=== PATIENT | male | born 1960 | race Caucasian/White ===

== ENCOUNTER → 2019-10-17 06:54 | Outpatient (CLI) | payer OTHER, SELFPAY ==
--- NOTE | 2019-10-17 | CA_ITS ---
APPROVED REPORT Exam: Pharmacologic Technologist: Oriana Torre Ht: 5 ft 9 in Wt: 178 lbs BSA: 1.97 m2 HR: 51 bpm BP: 116/54 mmHg Indications: CAD Medical History Medications: Lisinopril,,,,, Gabapentin,,,,, Atorvastatin,,,,, INSULIN,,,,, CloPIdogrel,,,,, BisOPROLOL,,,,, OmeGA3,,,,, Sitagliptin,,,,, EMpagliflozin,,,,, Stress Test Details Test: LEXISCAN HR Resting HR: 51 bpm Max Heart Rate (APMHR): 159 bpm Max HR Achieved: 90 bpm Target HR (85% APMHR): 135 bpm % of APMHR: 56 Recovery HR: 66 bpm BP Resting BP: 116.0/54.0 mmHg Max BP: 141.0/61.0 mmHg Recovery BP: 128.0/56.0 mmHg ECG Clinical Exercise duration: 04:00 min Highest Stage Achieved: Stress ECG Conclusion Resting ECG: Sinus bradycardia with PVC Lexiscan portion completed. Symptoms: Denied any complaints during peak infusion. No chest pain, shortness of breath or nausea/vomiting. Arrhythmias/Ectopy: Occasional PVC ST-T Changes: less than 1.[address] depression. Conclusion: Images to follow. Test Summary REST . . . . . . . Resting REST 02:56 . . 51 . 116/ 54 . . Stage 1 01:00 . . 74 . . . . Stage 2 01:00 . . 79 . 141/ 61 . . Stage 3 01:00 . . 74 . 131/ 61 . . Stage 4 01:00 . . 73 . 129/ 61 . Stop exercise at 04:00 RECOVERY 01:00 . . 71 . 125/ 60 . . RECOVERY 02:00 . . 67 . 118/ 59 . . RECOVERY 03:00 . . 71 . 118/ 59 . . RECOVERY 04:00 . . 64 . 121/ 62 . . RECOVERY 04:20 . . 65 . 128/ 56 . . Electronically signed by : Payam Tsang, 10/17/2019 20:19:15
--- NOTE | 2019-10-17 06:57 | NM_ITS ---
APPROVED REPORT Exam: Nuclear Stress Test Indication: CAD, HTN, DM, High cholesterol, Tobacco use Patient Location: Outpatient Stress Tech: Oriana Torre [place] Tech:Delmi Gross, ARRT, RT (R)(N) Ht: 5 ft 9 in Wt: 178 lbs HR: 51 bpm BP: 116/54 mmHg BSA: 1.97 m2 BMI: 26.2 History: CAD, HTN, DM, High cholesterol, Tobacco use Procedure: Patient received a 0.4 mg of intravenous Lexiscan, resting heart rate 51 bpm, resting blood pressure 116/54 mmHg, with Lexiscan maximum heart rate achived was 80 bpm which is Less than 85 % of the maximum predicted heart rate and blood pressure was 141/61 mmHg. With Lexiscan, patient denied any complaint of chest pain. Electrocardiogram Resting electrocardiogram showed sinus bradycardia, with Lexiscan there is less than 1.[address] segment depression noted from the baseline EKG. The EKG portion of the Lexiscan Myoview is nondiagnostic. Cardiac Stress and Resting SPECT Images: Cardiac Stress and Resting SPECT images were obtained using technetium 99m Myoview 31.4 mCi stress and 10.79 mCi at rest. Gated SPECT with analysis of segmental wall motion and calculation of the ejection fraction also done. Cardiac stress and resting SPECT images show decreased tracer activity in the inferoseptal wall which improves on the resting images suggestive of reversible ischemia, computer derived ejection fraction is over 65% with no regional wall motion abnormality, right ventricle is normal size and contractility. Conclusion: 1. The EKG portion of the Lexiscan Myoview is nondiagnostic. 2. Scintigraphic evidence of mild reversible ischemia involving the inferior septal wall. Computer derived ejection fraction over 65% with no regional wall motion abnormality, right ventricle is normal size and contractility. 3. Abnormal Lexiscan Myoview study. Electronically signed by : Payam Tsang, 10/17/2019 20:22:13
--- NOTE | 2019-10-17 07:17 | HMH.ITSHM ---
Current Home Medications as stated by this patient Oleksandr Fernandez or personnel representative. []SITAGLIPTIN OMEGA 3 LISINOPRIL INSULIN GABAPENTIN EMPAGLIFLOZIN CLOPIDOGREL BISOPROLOL ATORVASTATIN ASA
== END ==
PROVIDERS: PCP Family Medicine; Visit Provider Internal Medicine
DX: I25.10 Atherosclerotic heart disease of native coronary artery without angina pectoris (principal); E78.5 Hyperlipidemia, unspecified; I11.9 Hypertensive heart disease without heart failure; I73.9 Peripheral vascular disease, unspecified; Z72.0 Tobacco use
CPT/HCPCS: 78452; 93017; A9502; J2785

== ENCOUNTER → 2020-01-09 08:31 | Outpatient (CLI) | payer OTHER, SELFPAY ==
--- NOTE | 2020-01-09 08:33 | CA_ITS ---
APPROVED REPORT EXAM: Comprehensive 2D, Doppler, and color-flow Echocardiogram Front End Java Developer: Aimee Patel RVT Ht: 5 ft 9 in Wt: 176lbs BSA: 1.96 BP: 120/52 mmHg Indications: Diabetes, CAD, Hyperlipidemia, Hypertension,Smoker,PAD 2D Dimensions LVOT 2.24 cm (M/F) 1.5-2.5 M-Mode Dimensions RVDd 2.27 cm (0.9-2.6) LVDd 5.32 cm (3.5-5.7) LVDs 3.35 cm (3.5-5.7) IVSd 0.61 cm (0.6-1.1) PWd 1.03 cm (0.6-1.1) EF (Teich) 66.40% FS 37.00% EDV (Teich) 136.50 mL ESV (Teich) 45.80 mL LV Diastology E/A Ratio 1.27 Mitral Valve MV A Velocity 66.00 (40-130 cm/s) Left Ventricle Left atrium is mildly enlarged, left ventricle is normal size, mild concentric left ventricular hypertrophy, visually estimated ejection fraction 55% with no regional wall motion abnormality. Grade 1 diastolic dysfunction seen without tissue Doppler evidence of raise left atrial pressure. Right Ventricle Right atrium and right ventricular mildly enlarged with normal contractility. Aortic Valve Aortic valve is minimally thickened and fibrosed, there is no aortic stenosis or aortic insufficiency. Mitral Valve Mitral valve is grossly normal, there is mild mitral regurgitation. Tricuspid Valve Tricuspid valve is grossly normal, there is mild tricuspid regurgitation. Pulmonic Valve Pulmonic valve is poorly visualized. Great Vessels Aortic root is normal size. Pericardium No significant pericardial effusion noted. Conclusion 1. Mild mitral enlargement, normal left ventricular size, mild concentric left ventricular hypertrophy, visually estimated ejection fraction 55% with no regional wall motion abnormality, grade 1 diastolic dysfunction seen without tissue Doppler evidence of raise left atrial pressure. 2. Mildly enlarged right ventricle with normal contractility. 3. Mild mitral and tricuspid regurgitation. 4. No significant pericardial effusion noted. Electronically signed by : Payam Tsang, 01/10/2020 05:57:29
== END ==
PROVIDERS: PCP Family Medicine; Visit Provider Urology
DX: I25.10 Atherosclerotic heart disease of native coronary artery without angina pectoris (principal); I73.9 Peripheral vascular disease, unspecified; Z98.61 Coronary angioplasty status
CPT/HCPCS: 93306

== ENCOUNTER → 2020-09-19 07:53 | Outpatient (CLI) | payer OTHER, SELFPAY ==
--- NOTE | 2020-09-19 | CA_ITS ---
APPROVED REPORT Exam: Pharmacologic Technologist: Oriana Torre Ht: 5 ft 9 in Wt: 170 lbs BSA: 1.93 m2 HR: 50 bpm BP: 106/51 mmHg Indications: Abnormal EKG Medical History Medications: Lisinopril,,,,, Aspirin,,,,, Metformin,,,,, Gabapentin,,,,, Atorvastatin,,,,, INSULIN,,,,, CloPIdogrel,,,,, BisOPROLOL,,,,, LoraTidine,,,,, OmeGA3,,,,, Ranolazine,,,,, EMpagliflozin,,,,, Stress Test Details Test: LEXISCAN HR Resting HR: 58 bpm Max Heart Rate (APMHR): 159 bpm Max HR Achieved: 88 bpm Target HR (85% APMHR): 135 bpm % of APMHR: 55 Recovery HR: 72 bpm BP Resting BP: 106.0/51.0 mmHg Max BP: 130.0/58.0 mmHg Recovery BP: 130.0/58.0 mmHg ECG Clinical Exercise duration: 04:01 min Highest Stage Achieved: Stress ECG Conclusion Resting ECG: Sinus bradycardia, cannot rule out old septal [place], T wave abnormalities inferiorly. Symptoms: Shortness of air, nausea, malaise. No chest pain Arrhythmias/Ectopy: None ST-T Changes: No significant changes. Conclusion: Unremarkable Lexiscan stress. Myoview images reported separately. Electronically signed by : Payam Tsang, 09/20/2020 12:28:39
--- NOTE | 2020-09-19 07:53 | NM_ITS ---
APPROVED REPORT Exam: Nuclear Stress Test Indication: CAD, D.M., TOB USE, ABN EKG Patient Location: Outpatient Stress Tech: Oriana Torre [place] Tech:CESAR Sanchez RT (R)(N)(M) Ht: 5 ft 9 in Wt: 170 lbs HR: 50 bpm BP: 106/51 mmHg BSA: 1.93 m2 BMI: 25.1 History: CAD, D.M., TOB USE, ABN EKG Procedure: Patient received a 0.4 mg of intravenous Lexiscan, resting heart rate 50 bpm, resting blood pressure 106/51 mmHg, with Lexiscan maximum heart rate achived was 72 bpm which is Less than 85 % of the maximum predicted heart rate and blood pressure was 130/58 mmHg. With Lexiscan, patient denied any complaint of chest pain. Electrocardiogram Resting electrocardiogram showed sinus rhythm, with Lexiscan there is less than 1.[address] segment depression noted from the baseline EKG. The EKG portion of the Lexiscan Myoview is nondiagnostic. Cardiac Stress and Resting SPECT Images: Cardiac Stress and Resting SPECT images were obtained using technetium 99m Myoview 31.2 mCi stress and 10.48 mCi at rest. Gated SPECT for the analysis of segmental wall motion and prone stress images were also obtained. Cardiac stress and resting SPECT images show uniform myocardial activity without segmental perfusion abnormality, computer derived ejection fraction is 59% with no regional wall motion abnormality, right ventricle is mildly enlarged with normal contractility. Conclusion: 1. The EKG portion of the Lexiscan Myoview is nondiagnostic. 2. No scintigraphic evidence of reversible ischemia seen, computer derived ejection fraction 59% with no regional wall motion abnormality, right ventricle is mildly enlarged with normal contractility. 3. Normal myocardial perfusion imaging except right ventricle is mildly enlarged with normal contractility. Electronically signed by : Payam Tsang, 09/20/2020 12:43:00
== END ==
PROVIDERS: PCP Family Medicine; Visit Provider Nurse Practitioner Family
DX: R94.31 Abnormal electrocardiogram [ECG] [EKG] (principal); I25.10 Atherosclerotic heart disease of native coronary artery without angina pectoris; I73.9 Peripheral vascular disease, unspecified; R00.1 Bradycardia, unspecified; I11.9 Hypertensive heart disease without heart failure; E11.9 Type 2 diabetes mellitus without complications; E78.2 Mixed hyperlipidemia; Z98.61 Coronary angioplasty status; Z72.0 Tobacco use
CPT/HCPCS: 78452; 93017; A9502; J2785

== ENCOUNTER → 2022-04-02 06:59 | Outpatient (CLI) | payer OTHER, SELFPAY ==
--- NOTE | 2022-04-02 07:01 | CA_ITS ---
APPROVED REPORT Exam: Pharmacologic Technologist: Oriana Torre Ht: 5 ft 9 in Wt: 159 lbs BSA: 1.87 m2 HR: 51 bpm BP: 116/54 mmHg Indications: Chest pain Medical History Medications: Aspirin,,,,, Gabapentin,,,,, Fish Oil,,,,, Atorvastatin,,,,, INSULIN,,,,, Montelukast,,,,, Plavix,,,,, BisOPROLOL,,,,, LoraTidine,,,,, Janumet,,,,, JaRDiance,,,,, Ranolazine,,,,, Stress Test Details Test: LEXISCAN HR Resting HR: 55 bpm Max Heart Rate (APMHR): 157.873755 bpm Max HR Achieved: 74 bpm Target HR (85% APMHR): 133.767243 bpm % of APMHR: 47.13 Recovery HR: 61 bpm BP Resting BP: 116.0/54.0 mmHg Max BP: 124.0/59.0 mmHg Recovery BP: 112.0/54.0 mmHg ECG Resting ECG: Sinus bradycardia, First degree AV block, Old septal [place], T wave abnormality in lead III Clinical Exercise duration: 04:00 min Highest Stage Achieved: Exercise capacity: 1.0 METs Stress ECG Conclusion Symptoms: Mild chest tightness, mild nausea and shortness of air Arrhythmias/Ectopy: None ST-T Changes: No significant changes Conclusion: Unremarkable Lexiscan stress. Myoview images reported separately. Test Summary REST . . . . . . . Resting REST 03:10 . . 55 . 116/ 54 . . Stage 1 . . . . . . . Myoview Injected Stage 1 01:00 . . 63 . . . . Stage 2 . . . . . . . chest pressure Stage 2 01:00 . . 69 . 122/ 57 . . Stage 3 01:00 . . 67 . 124/ 59 . . Stage 4 01:00 . . 63 . 118/ 55 . Stop exercise at 04:00 RECOVERY 01:00 . . 64 . 109/ 56 . . RECOVERY 02:00 . . 63 . 109/ 56 . . RECOVERY 03:00 . . 61 . 112/ 54 . . RECOVERY 03:19 . . 63 . 112/ 54 . . Electronically signed by : Payam Tsang MD 04/03/2022 05:53:10
--- NOTE | 2022-04-02 07:01 | NM_ITS ---
APPROVED REPORT Exam: Nuclear Stress Test Indication: D.M., HYPERLIPIDEMIA, TOB USE, C.P., ABN EKG Patient Location: Outpatient Stress Tech: Oriana Torre [place] Tech:Delmi Gross, ARRT, RT (R)(N) Ht: 5 ft 9 in Wt: 154 lbs HR: 55 bpm BP: 116/54 mmHg BSA: 1.85 m2 BMI: 22.7 History: D.M., HYPERLIPIDEMIA, TOB USE, C.P., ABN EKG Procedure: Patient received a 0.4 mg of intravenous Lexiscan, resting heart rate 55 bpm, resting blood pressure 116/54 mmHg, with Lexiscan maximum heart rate achived was 69 bpm which is Less than 85 % of the maximum predicted heart rate and blood pressure was 122/57 mmHg. With Lexiscan, patient denied any complaint of chest pain. Electrocardiogram Resting electrocardiogram showed sinus rhythm, with Lexiscan there is less than 1.[address] segment depression noted from the baseline EKG. The EKG portion of the Lexiscan is nondiagnostic Cardiac Stress and Resting SPECT Images: Cardiac Stress and Resting SPECT images were obtained using technetium 99m Myoview 32.3 mCi stress and 10.30 mCi at rest. Gated SPECT for analysis of segmental wall motion and calculation of the ejection fraction also done. Cardiac stress and resting SPECT images show uniform myocardial activity without segmental perfusion abnormality, computer derived ejection fraction is 65% with no regional wall motion abnormality, right ventricle is normal size and contractility. Conclusion: 1. The EKG portion of the Lexiscan is nondiagnostic. 2. No scintigraphic evidence of reversible ischemia seen, computer derived ejection fraction of 65% with no regional wall motion abnormality, right ventricle is normal size and contractility. 3. Normal Lexiscan Myoview study. Electronically signed by : Payam Tsang MD 04/03/2022 05:55:54
--- NOTE | 2022-04-02 08:14 | HMH.ITSHM ---
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 []SITAGLIPTIN RANOLAZINE OMEGA 3 MONTELUKAST LORATADINE INSULIN GABAPENTIN EMPAGLIFLOZIN CLOPIDOGREL BISOPROLOL ATORVASTATIN ASA
== END ==
PROVIDERS: PCP Family Medicine; Visit Provider Physician Assistant
DX: R07.89 Other chest pain (principal); E11.9 Type 2 diabetes mellitus without complications; R00.1 Bradycardia, unspecified; R94.31 Abnormal electrocardiogram [ECG] [EKG]; I25.10 Atherosclerotic heart disease of native coronary artery without angina pectoris; I11.9 Hypertensive heart disease without heart failure; E78.2 Mixed hyperlipidemia; I73.9 Peripheral vascular disease, unspecified; Z72.0 Tobacco use; Z98.61 Coronary angioplasty status
CPT/HCPCS: 78452; 93017; A9502; J2785

== ENCOUNTER 2025-10-19 14:57 | Outpatient (CLI) | payer OTHER, SELFPAY ==
[2025-10-19 15:20] LABS: Hematocrit 51.2 % (42.0-52.0); Hemoglobin 16.1 g/dL (14.1-18.0); Immature Granulocytes % 0.3 %; Mean Corpuscular HGB Conc 31.4 g/dL (31.8-35.4); Mean Corpuscular Hemoglobin 28.8 pg (27.0-31.2); Mean Corpuscular Volume 91.6 fl (80-94); Nucleated Red Blood Cells % 0 %; Platelet Count 214 K/mm3 (142-424); Red Blood Count 5.59 M/mm3 (4.60-6.20); Red Cell Distribution Width-SD 48.7 fL; White Blood Count 11.6 K/mm3 (4.8-10.8)
[2025-10-19 16:11] LABS: Albumin Level 4.6 g/dl (3.5-5.0); Chloride 100 mmol/L (98-107)
[2025-10-19 16:12] LABS: Potassium 4.6 mmoL/L (3.5-5.1); Sodium 140 mmol/L (136-145)
[2025-10-19 16:14] LABS: Alanine Aminotransferase 26 U/L (12-78); Anion Gap 17.6 mEq/L (5-15); Aspartate Amino Transferase 28 U/L (17-59); Bilirubin,Unconjugated 0.6 mg/dL (0.0-1.1); Blood Urea Nitrogen 20 mg/dl (9-20); Carbon Dioxide 27 mmol/L (22.0-30.0); Creatinine,Serum 1.10 mg/dl (0.66-1.25); Estimated Glomerular Filt Rate 67 ml/min (>60); GFR (African American) 81 ML/MIN (>60); Total Protein,Serum 7.6 g/dl (6.3-8.2)
[2025-10-19 16:15] LABS: Alkaline Phosphatase 108 U/L (38-126); Bilirubin,Direct 0.1 mg/dl (0.0-0.4); Bilirubin,Indirect 0.6 mg/dL (0.0-0.9); Bilirubin,Total 0.7 mg/dl (0.2-1.3); Calcium 9.6 mg/dl (8.4-10.2); Cholesterol 142 mg/dl (140-200); Glucose 134 mg/dl (74-100); HDL Cholesterol 46 mg/dl (40-60); Magnesium 2.3 mg/dl (1.6-2.3); Triglycerides 94 mg/dl (30-150)
[2025-10-19 16:30] LABS: Free T4 (Free Thyroxine) 1.32 ng/dl (0.78-2.19)
[2025-10-19 16:45] LABS: Thyroid Stimulating Hormone 3.68 uIU/mL (0.465-4.68)
--- OUTSIDE RECORDS SUMMARY | 2025-10-19 16:59 | XMS_ITS | CCD ---
Author Name Interface, [id number] lity Address [address] [phone] Organization [facility] Address [address] [place] [address] Care Team Providers Care Clinical Educator Name Role Phone Whitney HUGHES, Marcelo Munguia Unavailable Unavailable Allergies and Adverse Reactions Medication/Group Name Reaction Severity Date Phenergan 06/21/2021 Reason for Visit CBC w/ auto diff Functional Status Date Name/Question Score/Answer 06/21/2021 ECOG performance status - grade 1 1 07/20/2019 ECOG performance status - grade 0 0 05/31/2020 ECOG performance status - grade 0 0 12/22/2018 ECOG performance status - grade 0 0 12/31/2018 ECOG performance status - grade 0 0 11/09/2019 ECOG performance status - grade 0 0 02/16/2020 ECOG performance status - grade 0 0 Medications Date Name Route Dose Frequency Instructions Start Date End Date Status Fill Status Indication 12/22 Insulin Detemir Subcuta neous 100 unit/mL subcuta neously 36.0 every evening active 12/22 Clopido grel Oral orally 75.0 mg daily active 12/22 Sitagli ptin-Me tformin Oral 50 mg-1,00 0 mg orally 1.0 2 times per day active 12/22 Atorvas tatin Oral orally 40.0 mg daily active 07/20 Choleca lcifero l Oral orally 2000.0 unit daily active 12/22 Lisinop ril Oral orally 25.0 mg daily active 02/15 Ranolaz ine Oral 12 hr Tab twice daily active 12/22 Gabapen tin Oral orally 1.0 tablet 2 times per day active 12/22 Loratad ine Oral orally 10.0 mg daily active 12/22 Empagli flozin Oral orally 25.0 mg daily active 12/22 [place] 3-DHA-E PA-Fish Oil Oral Liquid 1,600 mg-500 mg-800 mg/5 mL orally daily active 12/22 Acetami nophen Oral orally 650.0 mg every 4 hours prn pain stopped 12/22 Aspirin Oral orally 81.0 mg daily active 12/22 Cyanoco balamin Oral orally 5000.0 mcg daily active 12/22 Bisopro lol Oral orally 5.0 mg daily active Problems Diagnosis Status Date of Diagnosis Resolution Date Leukocytosis (disorder) Active Tobacco abuse Active History of blood disorder (situation) Active Diabetes Active Secondary polycythemia Active Arthritis (disorder) Active High cholesterol Active Seasonal allergy Active Migraine headache Active Social History Date Name Value 12/30/2018 Sex Male
--- OUTSIDE RECORDS SUMMARY | 2025-10-19 16:59 | XMS_ITS | CCD ---
Author Name Interface, [id number] lity Address [address] [phone] Organization [facility] Address [address] [place] [address] Care Team Providers Care Hand I Thermal Cutter Name Role Phone Whitney HUGHES, Marcelo Munguia [...] Oral orally 25.0 mg daily active 12/22 [place] 3-DHA-E PA-Fish Oil Oral Liquid 1,600 mg-500 [...]
--- OUTSIDE RECORDS SUMMARY | 2025-10-19 16:59 | XMS_ITS ---
Author Name Interface, [id number] lity Address [address] [place] [address] Organization [facility] Address [address] [place] [address] Allergies and Adverse Reactions Medication/Group Name Reaction Severity Date Phenergan 06/21/2021 Plan Date Type Value 06/21/2021 APPOINTMENT TREATMENT 1 HR 06/21/2021 APPOINTMENT OV 15 MIN 06/21/2021 APPOINTMENT LAB 15 MIN 06/21/2021 APPOINTMENT CBC w/ auto diff 06/21/2021 LAB_ORDER CBC w/ auto diff 12/22/2021 LAB_ORDER CBC w/ auto diff Reason for Visit CBC w/ auto diff Encounters Date Name 06/21/2021 Leukocytosis (disord er) 06/21/2021 Secondary polycythem ia 06/21/2021 Tobacco abuse Diagnostic Results Date Type Test Units Lower Limit Upper Limit Result Flag Comments Status Ordered By Specimen Source Lab Address 06/21 CBC w/ auto diff WBC 10*3/u L 4.2 9.1 14.1 High FINAL Marcelo [facility] ([facility]), [address], [address] [facility] [address] 06/21 CBC w/ auto diff Cristobal # (ANC) 10*3/u L 1.78 5.38 10.63 High FINAL Marcelo [facility] ([facility]), [address], [address] [facility] [address] 06/21 CBC w/ auto diff LY # 10*3/u L 1.32 3.57 2.09 FINAL [facility] ([facility]), [address], [address] [facility] [address] 06/21 CBC w/ auto diff MO # 10*3/u L 0.3 0.82 1.34 High FINAL Marcelo [facility] ([facility]), [address], [address] [place] [address] 06/21 CBC w/ auto diff EO # 10*3/u lL 0.04 0.54 0.03 Low FINAL Marcelo [facility] ([facility]), [address], [address] [place] [address] 06/21 CBC w/ auto diff BA # 10*3/u L 0.01 0.08 0.02 FINAL Marcelo [facility] ([facility]), [address], [address] [place] [address] 06/21 CBC w/ auto diff Cristobal % % 34.0 67.9 75.4 High FINAL Marcelo [facility] ([facility]), [address], [address] [place] [address] 06/21 CBC w/ auto diff LY % % 21.8 53.1 14.8 Low FINAL Marcelo [facility] ([facility]), [address], [address] [place] [address] 06/21 CBC w/ auto diff MO % % 5.3 12.2 9.5 FINAL Marcelo [facility] [address], [address] [place] [address] 06/21 CBC w/ auto diff EO % % 0.8 7.0 0.2 Low FINAL Marcelo [facility] ([facility]), [address], [address] [place] [address] 06/21 CBC w/ auto diff BA % % 0.2 1.2 0.1 Low FINAL Marcelo [facility] ([facility]), [address], [address] [place] [address] 06/21 CBC w/ auto diff RBC 10*6/u L 4.63 6.08 4.90 FINAL Marcelo [facility] ([facility]), [address], [address] [place] [address] 06/21 CBC w/ auto diff HGB g/dL 13.7 17.5 16.0 FINAL [facility] ([facility]), [address], [address] [place] [address] 06/21 CBC w/ auto diff HCT % 40.1 51.0 47.5 FINAL [facility] ([facility]), [address], [address] [place] [address] 06/21 CBC w/ auto diff MCV fL 79.0 92.2 96.9 High FINAL [facility] ([facility]), [address], [address] [place], [place] [address] 06/21 CBC w/ auto diff MCH pg 25.7 32.2 32.7 High FINAL [facility] ([facility]), [address], [address] [place] [address] 06/21 CBC w/ auto diff MCHC g/dL 32.3 36.5 33.7 FINAL [facility] ([facility]), [address], [address] [facility] [address] 06/21 CBC w/ auto diff RDW-C V, % % 11.6 14.4 14.0 FINAL [facility] ([facility]), [address], [address] [facility] [address] 06/21 CBC w/ auto diff PLT 10*3/u L 163.0 337.0 185.0 FINAL [facility] ([facility]), [address], [address] [place], [place] [address] 07/23 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 Medications Date Name Route Dose Frequency Instructions Start Date End Date Status Fill Status Indication 12/22 Sitagli ptin-Me tformin Oral 50 mg-1,00 0 mg orally 1.0 2 times per day active 12/22 Aspirin Oral orally 81.0 mg daily active 12/22 Insulin Detemir Subcuta neous 100 unit/mL subcutan eously 36.0 every evening active 12/22 Cyanoco balamin Oral orally 5000.0 mcg daily active 12/22 [place] 3-DHA-E PA-Fish Oil Oral Liquid 1,600 mg-500 mg-800 mg/5 mL orally daily active 12/22 Bisopro lol Oral orally 5.0 mg daily active 02/15 Ranolaz ine Oral 12 hr Tab twice daily active 12/22 Atorvas tatin Oral orally 40.0 mg daily active 12/22 Gabapen tin Oral orally 1.0 tablet 2 times per day active 12/22 Loratad ine Oral orally 10.0 mg daily active 12/22 Lisinop ril Oral orally 25.0 mg daily active 12/22 Clopido grel Oral orally 75.0 mg daily active 12/22 Empagli flozin Oral orally 25.0 mg daily active 07/20 Choleca lcifero l Oral orally 2000.0 unit daily active Problems Diagnosis Status Date of Diagnosis Resolution Date Leukocytosis (disorder) Active Tobacco abuse Active History of blood disorder (situation) Active Diabetes Active Secondary polycythemia Active Arthritis (disorder) Active High cholesterol Active Seasonal allergy Active Migraine headache Active Vital Signs Date Type Value 06/21/2021 Body Temperature 97.20 06/21/2021 Heart Beat 72.00 06/21/2021 Respiratory Rate 10.00 06/21/2021 Intravascular Systolic 120 06/21/2021 Intravascular Diastolic 70 06/21/2021 BSA 1.95 06/21/2021 Weight 170.20 06/21/2021 Height 69.50 06/21/2021 BMI 24.77 06/21/2021 Pain Scale 0.00
--- OUTSIDE RECORDS SUMMARY | 2025-10-19 16:59 | XMS_ITS ---
Author Name Interface, [id number] lity Address [address] [place] [address] Organization [facility] Address [address] [place] [address] Allergies and Adverse Reactions Medication/Group Name Reaction Severity Date Phenergan 06/21/2021 Plan Date Type Value 06/21/2021 APPOINTMENT TREATMENT 1 HR 06/21/2021 APPOINTMENT OV 15 MIN 06/21/2021 APPOINTMENT LAB 15 MIN 06/21/2021 APPOINTMENT CBC w/ auto diff 05/31/2020 APPOINTMENT tx 05/31/2020 APPOINTMENT 3mo md fu tx and labs 05/31/2020 APPOINTMENT 3mo md fu tx and labs 05/31/2020 APPOINTMENT MD San[facility] Phle botomy 05/31/2020 APPOINTMENT CBC w/ auto diff 05/10/2020 APPOINTMENT CBC w/ auto diff 05/10/2020 APPOINTMENT 3 month MD and l abs 05/10/2020 APPOINTMENT 3 month MD and l abs 05/10/2020 APPOINTMENT 3 month MD and l abs 05/10/2020 APPOINTMENT Therapeutic phle botomy (procedure) 05/10/2020 APPOINTMENT MD San[facility] Phle botomy 02/16/2020 APPOINTMENT CBC w/ auto diff 02/16/2020 APPOINTMENT MD [facility] Phle botomy 02/16/2020 APPOINTMENT MD [facility] Phle botomy 02/16/2020 APPOINTMENT MD [facility] Phle botomy 02/16/2020 APPOINTMENT 3MO RODRIGO FU TX AN D LABS 02/16/2020 APPOINTMENT 3MO RODRIGO FU TX AN D LABS 02/16/2020 APPOINTMENT 3MO RODRIGO FU TX AN D LABS 02/16/2020 LAB_ORDER CBC w/ auto diff 05/10/2020 LAB_ORDER CBC w/ auto diff 05/31/2020 LAB_ORDER CBC w/ auto diff 08/31/2020 LAB_ORDER CBC w/ auto diff 06/21/2021 LAB_ORDER CBC w/ auto diff 12/22/2021 LAB_ORDER CBC w/ auto diff Reason for Visit CBC w/ auto diff Encounters Date Name 02/16/2020 Leukocytosis (disord er) Diagnostic Results Date Type Test Units Lower Limit Upper Limit Result Flag Comments Status Ordered By Specimen Source Lab Address 02/15 CBC w/ auto diff WBC 10*3/u L 4.2 9.1 8.8 FINAL Marcelo Olson B&Whole Blood Formerly [facility] ([facility]), [address], [address] [place] [address] 02/15 CBC w/ auto diff Cristobal # (ANC) 10*3/u L 1.78 5.38 4.12 FINAL Marcelo Olson B&Whole Blood Formerly [facility] ([facility]), [address], [address] [place] [address] 02/15 CBC w/ auto diff LY # 10*3/u L 1.32 3.57 3.32 FINAL Marcelo Olson B&Whole Blood Formerly [facility] ([facility]), [address], [address] [place] [address] 02/15 CBC w/ auto diff MO # 10*3/u L 0.3 0.82 0.96 High FINAL Marcelo Olson B&Whole Blood Formerly [facility] ([facility]), [address], [address] [place] [address] 02/15 CBC w/ auto diff EO # 10*3/u lL 0.04 0.54 0.36 FINAL Marcelo Olson B&Whole Blood Formerly [facility] ([facility]), [address], [address] [place] [address] 02/15 CBC w/ auto diff BA # 10*3/u L 0.01 0.08 0.04 FINAL Marcelo Olson B&Whole Blood Formerly [facility] ([facility]), [address], [address] [place] [address] 02/15 CBC w/ auto diff Cristobal % % 34.0 67.9 46.8 FINAL Marcelo Olson B&Whole Blood Formerly [facility] ([facility]), [address], [address] [place] [address] 02/15 CBC w/ auto diff LY % % 21.8 53.1 37.7 FINAL Marcelo Olson B&Whole Blood Formerly [facility] (T), [address], Suite [facility] [place] [address] 02/15 CBC w/ auto diff MO % % 5.3 12.2 10.9 FINAL Marcelo Olson B&Whole Blood Formerly [facility] (T), [address], [address] [facility] [place] Formerly [facility] 02/15 CBC w/ auto diff EO % % 0.8 7.0 4.1 FINAL Marcelo Olson B&Whole Blood Formerly [facility] (T), [address], [address] [facility] [place] Formerly [facility] 02/15 CBC w/ auto diff BA % % 0.2 1.2 0.5 FINAL Marcelo Olson B&Whole Blood Formerly [facility] ([facility]), [address], [address] [facility] [place] Formerly [facility] 02/15 CBC w/ auto diff RBC 10*6/u L 4.63 6.08 5.33 FINAL Marcelo Olson B&Whole Blood Formerly [facility] ([facility]), [address], [address] [facility] [place] Formerly [facility] 02/15 CBC w/ auto diff HGB g/dL 13.7 17.5 17.4 FINAL Marcelo Olson B&Whole Blood Formerly [facility] (T), [address], [address] [place] [address] 02/15 CBC w/ auto diff HCT % 40.1 51.0 50.4 FINAL Marcelo Olson B&Whole Blood Formerly [facility] (T), [address], [address] [facility] [place] Formerly [facility] 02/15 CBC w/ auto diff MCV fL 79.0 92.2 94.6 High FINAL Marcelo Olson B&Whole Blood Formerly [facility] ([facility]), [address], [address] [facility] [place] Formerly [facility] 02/15 CBC w/ auto diff MCH pg 25.7 32.2 32.6 High FINAL Marcelo Olson B&Whole Blood Formerly [facility] (T), [address], [address] [facility] [place] Formerly [facility] 02/15 CBC w/ auto diff MCHC g/dL 32.3 36.5 34.5 FINAL Marcelo Mahmoods B&Whole Blood Formerly [facility] (T), [address], [address] [facility] [place] [address] 02/15 CBC w/ auto diff RDW-C V, % % 11.6 14.4 14.0 FINAL Marcelo Mahmoods B&Whole Blood [facility] (T), [address], [address] [place] [address] 02/15 CBC w/ auto diff PLT 10*3/u L 163.0 337.0 172.0 FINAL Marcelo Mahmoods B&Whole Blood Formerly [facility] (T), [address], [address] [place] [address] 05/31 CBC w/ auto diff WBC 10*3/u L 4.2 9.1 10.4 High FINAL Marcelo Herms B&Whole Blood [facility] (T), [address], [address] [place] [address] 05/31 CBC w/ auto diff Cristobal # (ANC) 10*3/u L 1.78 5.38 5.26 FINAL Marcelo Mahmoods B&Whole Blood Formerly [facility] (T), [address], [address] [place] [address] 05/31 CBC w/ auto diff LY # 10*3/u L 1.32 3.57 3.84 High FINAL Marcelo Mahmoods B&Whole Blood [facility] (T), [address], [address] [place] [address] 05/31 CBC w/ auto diff MO # 10*3/u L 0.3 0.82 0.94 High FINAL Marcelo Herms B&Whole Blood [facility] (T), [address], [address] [place] [address] 05/31 CBC w/ auto diff EO # 10*3/u lL 0.04 0.54 0.30 FINAL Marcelo Herms B&Whole Blood [facility] (T), [address], [address] [place] [address] 05/31 CBC w/ auto diff BA # 10*3/u L 0.01 0.08 0.03 FINAL Marcelo Herms B&Whole Blood [facility] (T), [address], [address] [place] [address] 05/31 CBC w/ auto diff Cristobal % % 34.0 67.9 50.7 FINAL Marcelo Herms B&Whole Blood [facility] ([facility]), [address], Suite [facility] [place] [address] 05/31 CBC w/ auto diff LY % % 21.8 53.1 37.0 FINAL Marcelo Olson B&Whole Blood Formerly [facility] ([facility]), [address], [address] [facility] [place] Formerly [facility] 05/31 CBC w/ auto diff MO % % 5.3 12.2 9.1 FINAL Marcelo Olson B&Whole Blood Formerly [facility] ([facility]), [address], [address] [facility] [place] Formerly [facility] 05/31 CBC w/ auto diff EO % % 0.8 7.0 2.9 FINAL Marcelo Olson B&Whole Blood Formerly [facility] ([facility]), [address], [address] [place] [address] 05/31 CBC w/ auto diff BA % % 0.2 1.2 0.3 FINAL Marcelo Olson B&Whole Blood Formerly [facility] (T), [address], [address] [place] [address] 05/31 CBC w/ auto diff RBC 10*6/u L 4.63 6.08 5.01 FINAL Marcelo Olson B&Whole Blood Formerly [facility] (T), [address], [address] [place] [address] 05/31 CBC w/ auto diff HGB g/dL 13.7 17.5 16.4 FINAL Marcelo Olson B&Whole Blood Formerly [facility] ([facility]), [address], [address] [place] [address] 05/31 CBC w/ auto diff HCT % 40.1 51.0 47.5 FINAL Marcelo Olson B&Whole Blood Formerly [facility] ([facility]), [address], [address] [place] [address] 05/31 CBC w/ auto diff MCV fL 79.0 92.2 94.8 High FINAL Marcelo Mahmoods B&Whole Blood [facility] ([facility]), [address], [address] [place] [address] 05/31 CBC w/ auto diff MCH pg 25.7 32.2 32.7 High FINAL Marcelo Mahmoods B&Whole Blood [facility] ([facility]), [address], [address] [place] [address] 05/31 CBC w/ auto diff MCHC g/dL 32.3 36.5 34.5 FINAL [facility] B&Whole Blood Formerly [facility] (T), [address], [address] [place] [address] 05/31 CBC w/ auto diff RDW-C V, % % 11.6 14.4 13.8 FINAL [facility] B&Whole Blood Formerly [facility] (T), [address], [address] [place] [address] 05/31 CBC w/ auto diff PLT 10*3/u L 163.0 337.0 161.0 Low FINAL [facility] B&Whole Blood Formerly [facility] ([facility]), [address], [address] [place] [address] 06/21 CBC w/ auto diff WBC 10*3/u L 4.2 9.1 14.1 High FINAL [facility] ([facility]), [address], [address] [place] [address] 06/21 CBC w/ auto diff Cristobal # (ANC) 10*3/u L 1.78 5.38 10.63 High FINAL [facility] ([facility]), [address], [address] [place] [address] 06/21 CBC w/ auto diff LY # 10*3/u L 1.32 3.57 2.09 FINAL [facility] ([facility]), [address], [address] [place] [address] 06/21 CBC w/ auto diff MO # 10*3/u L 0.3 0.82 1.34 High FINAL [facility] ([facility]), [address], [address] [place] [address] 06/21 CBC w/ auto diff EO # 10*3/u lL 0.04 0.54 0.03 Low FINAL [facility] ([facility]), [address], [address] [place] [address] 06/21 CBC w/ auto diff BA # 10*3/u L 0.01 0.08 0.02 FINAL [facility] ([facility]), [address], [address] [place] [address] 06/21 CBC w/ auto diff Cristobal % % 34.0 67.9 75.4 High FINAL [facility] ([facility]), [address], [address] [place] [address] 06/21 CBC w/ auto diff LY % % 21.8 53.1 14.8 Low FINAL [facility] ([facility]), [address], [address] [place] [address] 06/21 CBC w/ auto diff MO % % 5.3 12.2 9.5 FINAL [facility] ([facility]), [address], [address] [place] [address] 06/21 CBC w/ auto diff EO % % 0.8 7.0 0.2 Low FINAL [facility] ([facility]), [address], [address] [place] [address] 06/21 CBC w/ auto diff BA % % 0.2 1.2 0.1 Low FINAL [facility] ([facility]), [address], [address] [place] [address] 06/21 CBC w/ auto diff RBC 10*6/u L 4.63 6.08 4.90 FINAL [facility] ([facility]), [address], [address] [place] [address] 06/21 CBC w/ auto diff HGB g/dL 13.7 17.5 16.0 FINAL [facility] ([facility]), [address], [address] [place] [address] 06/21 CBC w/ auto diff HCT % 40.1 51.0 47.5 FINAL [facility] ([facility]), [address], [address] [place] [address] 06/21 CBC w/ auto diff MCV fL 79.0 92.2 96.9 High FINAL [facility] ([facility]), [address], [address] [place] [address] 06/21 CBC w/ auto diff MCH pg 25.7 32.2 32.7 High FINAL [facility] ([facility]), [address], [address] [facility] [place] [address] 06/21 CBC w/ auto diff MCHC g/dL 32.3 36.5 33.7 FINAL [facility] ([facility]), [address], [address] [facility] [place] [address] 06/21 CBC w/ auto diff RDW-C V, % % 11.6 14.4 14.0 FINAL [facility] ([facility]), [address], [address] [facility] [place] [address] 06/21 CBC w/ auto diff PLT 10*3/u L 163.0 337.0 185.0 FINAL [facility] ([facility]), [address], [address] [facility] [place] [address] 07/23 Lab Repor t See smelter liner d Medications Date Name Route Dose Frequency Instructions Start Date End Date Status Fill Status Indication 12/22 Sitagli ptin-Me tformin Oral 50 mg-1,00 0 mg orally 1.0 2 times per day active 12/22 Aspirin Oral orally 81.0 mg daily active 12/22 Insulin Detemir Subcuta neous 100 unit/mL subcutan eously 36.0 every evening active 12/22 Cyanoco balamin Oral orally 5000.0 mcg daily active 12/22 [place] 3-DHA-E PA-Fish Oil Oral Liquid 1,600 mg-500 [...] headache Active Vital Signs Date Type Value 02/16/2020 BMI 24.80 02/16/2020 Height 69.50 02/16/2020 Weight 170.40 02/16/2020 Pain Scale 0.00 02/16/2020 BSA 1.95 02/16/2020 Respiratory Rate 16.00 02/16/2020 Heart Beat 72.00 02/16/2020 Body Temperature 97.60 02/16/2020 Intravascular Systolic 110 02/16/2020 Intravascular Diastolic 62 05/31/2020 BSA 1.93 05/31/2020 BMI 24.45 05/31/2020 Height 69.50 05/31/2020 Weight 168.00 05/31/2020 Pain Scale 0.00 05/31/2020 Intravascular Systolic 114 05/31/2020 Intravascular Diastolic 62 05/31/2020 Respiratory Rate 14.00 05/31/2020 Body Temperature 98.00 05/31/2020 Heart Beat 72.00 06/21/2021 Body Temperature 97.20 06/21/2021 Heart Beat 72.00 06/21/2021 Respiratory Rate 10.00 06/21/2021 Intravascular Systolic 120 06/21/2021 Intravascular Diastolic 70 06/21/2021 BSA 1.95 06/21/2021 Weight 170.20 06/21/2021 Height 69.50 06/21/2021 BMI 24.77 06/21/2021 Pain Scale 0.00 Notes Section * Nurse Note for: 16-FEB-20 [facility] Nurse Note Print Location: Unknown Date/Time Printed: 10/19/2025 16:59 ([facility]) Patient: VALERIE PUENTES Sex: Male : 1960 Date of Service: 02/16/2020 Allergies : Phenergan Vital Signs : Time: 13:42. Weight: 170.4 lb (77.29 kg). Height: 69.5 in (176.53 cm). BMI: 24.8 (kg/m2) . BSA: 1.95 (m2) . Temperature: 97.6 F (36.44 C). Pulse: 72 (/min) . Respirations: 16 (/min) . Blood pressure:110/62 (mm Hg). Pain Scale: 0. Entered by Stefanie Vick MA 02/16/2020 13:44 Patient Assessment : Positive results Assessment : Labs Verified: Yes, Alert, oriented with appropriate behavior. Negative results Assessment : Gait Changes. Denies Neuropathy , Pain -0-No pain, Fatigue , Anxiety/Depression , Fever, Chills or Night Sweats ,Signs of Infection , Skin Changes , Dizziness , Headaches , Nausea , Breathing Changes , Cough , Mouth Sores/Stomatitis/Mucositis , Changes in Appetite , Vomiting , Diarrhea , Constipation , Urinary Changes , Bleeding . Entered By Barbara Casas RN on 15:31 IV Access/Lab Draw : IV Access-Peripheral - New Start, Needle Type-Iv Cath, Needle Size-16 Gauge, Access Site-Left Arm, Site Assess List-Blood Return,No Redness,No Swelling,No Tenderness,No Bruising, Site Care Checklist-Aseptic Technique, Lab Drawn-No, Access Attempts-1 time(s), Entered By Barbara Casas RN on 15:31 IV De-Access : IV Access Method-Peripheral - New Start, IV Access Type-Iv Cath, Catheter-Dc'd, Site Care-Site Dressing Applied,Blood Return Noted During Administration,Therapy Completed Without Adverse Event, Site Assess-Line Intact,No Redness,No Swelling,No Tenderness,No Bruising, Entered By Barbara Casas RN on 15:31 Procedures : Therapeutic phlebotomy (procedure) - Associated Problem(s): Secondary polycythemia *; Volume Removed: 450 cc removed, Instructions: Eat regularly, Increase fluids, No prolonged standing, Change positions slowly, No strenuous activity, Selected Billing Code(s): PHLEBOTOMY THERAPEUTIC SEPARATE PROCEDURE (92200) Entered By Barbara Casas RN; Incident to Marcelo Olson MD
--- OUTSIDE RECORDS SUMMARY | 2025-10-19 16:59 | XMS_ITS ---
Author Name Interface, [id number] lity Address [address] [place] [address] Organization [facility] Address [address] [place] [address] Allergies and Adverse Reactions Medication/Group Name Reaction [...] L 4.2 9.1 14.1 High FINAL Marcelo [facility] ([facility]), [address], [address] [facility] [address] 06/21 CBC w/ auto diff Cristobal # (ANC) 10*3/u L 1.78 5.38 10.63 High FINAL Marcelo [facility] ([facility]), [address], [address] [facility] [address] 06/21 CBC w/ auto diff LY # 10*3/u L 1.32 3.57 2.09 FINAL [facility] ([facility]), [address], [address] [facility] [address] 06/21 CBC w/ auto diff MO # 10*3/u L 0.3 0.82 1.34 High FINAL Marcelo [facility] ([facility]), [address], [address] [place] [address] 06/21 CBC w/ auto diff EO # 10*3/u lL 0.04 0.54 0.03 Low FINAL Marcelo [facility] ([facility]), [address], [address] [place] [address] 06/21 CBC w/ auto diff BA # 10*3/u L 0.01 0.08 0.02 FINAL Marcelo [facility] ([facility]), [address], [address] [place] [address] 06/21 CBC w/ auto diff Cristobal % % 34.0 67.9 75.4 High FINAL Marcelo [facility] ([facility]), [address], [address] [place] [address] 06/21 CBC w/ auto diff LY % % 21.8 53.1 14.8 Low FINAL Marcelo [facility] ([facility]), [address], [address] [place] [address] 06/21 CBC w/ auto diff MO % % 5.3 12.2 9.5 FINAL Marcelo [facility] ([facility]), [address], [address] [place] [address] 06/21 CBC w/ auto diff EO % % 0.8 7.0 0.2 Low FINAL Marcelo [facility] ([facility]), [address], [address] [place] [address] 06/21 CBC w/ auto diff BA % % 0.2 1.2 0.1 Low FINAL Marcelo [facility] ([facility]), [address], [address] [place] [address] 06/21 CBC w/ auto diff RBC 10*6/u L 4.63 6.08 4.90 FINAL Marcelo [facility] ([facility]), [address], [address] [place] [address] 06/21 CBC w/ auto diff HGB g/dL 13.7 17.5 16.0 FINAL [facility] ([facility]), [address], [address] [place] [address] 06/21 CBC w/ auto diff HCT % 40.1 51.0 47.5 FINAL [facility] ([facility]), [address], [address] [place] [address] 06/21 CBC w/ auto diff MCV fL 79.0 92.2 96.9 High FINAL [facility] ([facility]), [address], [address] [place], [place] [address] 06/21 CBC w/ auto diff MCH pg 25.7 32.2 32.7 High FINAL [facility] ([facility]), [address], [address] [place] [address] 06/21 CBC w/ auto diff MCHC g/dL 32.3 36.5 33.7 FINAL [facility] ([facility]), [address], [address] [facility] [address] 06/21 CBC w/ auto diff RDW-C V, % % 11.6 14.4 14.0 FINAL [facility] ([facility]), [address], [address] [facility] [address] 06/21 CBC w/ auto diff PLT 10*3/u L 163.0 337.0 185.0 FINAL [facility] ([facility]), [address], [address] [place], [place] [address] 07/23 Lab Repor t See heel attacher wood d Medications Date Name Route Dose Frequency Instructions Start Date End Date Status Fill Status Indication 12/22 Sitagli ptin-Me tformin Oral 50 mg-1,00 0 mg orally 1.0 2 times per day active 12/22 Aspirin Oral orally 81.0 mg daily active 12/22 Insulin Detemir Subcuta neous 100 unit/mL subcutan eously 36.0 every evening active 12/22 Cyanoco balamin Oral orally 5000.0 mcg daily active 12/22 [place] 3-DHA-E PA-Fish Oil Oral Liquid 1,600 mg-500 [...]
--- OUTSIDE RECORDS SUMMARY | 2025-10-19 16:59 | XMS_ITS ---
Author Name Interface, [id number] lity Address [address] [place] [address] Organization [facility] Address [address] [place] [address] Allergies and Adverse Reactions Medication/Group Name Reaction [...] Encounters Date Name 02/16/2020 Leukocytosis (disord er) 02/16/2020 Secondary polycythem ia Diagnostic Results Date Type Test Units Lower Limit Upper Limit Result Flag Comments Status Ordered By Specimen Source Lab Address 02/15 CBC w/ auto diff WBC 10*3/u L 4.2 9.1 8.8 FINAL Marcelo Olson B&Whole Blood [facility] ([facility]), [address], [address] [place] [address] 02/15 CBC w/ auto diff Cristobal # (ANC) 10*3/u L 1.78 5.38 4.12 FINAL Marcelo Olson B&Whole Blood [facility] ([facility]), [address], [address] [place] [address] 02/15 CBC w/ auto diff LY # 10*3/u L 1.32 3.57 3.32 FINAL Marcelo Olson B&Whole Blood [facility] ([facility]), [address], [address] [place] [address] 02/15 CBC w/ auto diff MO # 10*3/u L 0.3 0.82 0.96 High FINAL Marcelo Olson B&Whole Blood [facility] ([facility]), [address], [address] [place] [address] 02/15 CBC w/ auto diff EO # 10*3/u lL 0.04 0.54 0.36 FINAL Marcelo Olson B&Whole Blood [facility] ([facility]), [address], [address] [place] [address] 02/15 CBC w/ auto diff BA # 10*3/u L 0.01 0.08 0.04 FINAL Marcelo Olson B&Whole Blood [facility] ([facility]), [address], [address] [place] [address] 02/15 CBC w/ auto diff Cristobal % % 34.0 67.9 46.8 FINAL Marcelo Olson B&Whole Blood [facility] ([facility]), [address], [address] [place] [address] 02/15 CBC w/ auto diff LY % % 21.8 53.1 37.7 FINAL Marcelo Mahmoods B&Whole Blood [facility] ([facility]), [address], [place] [facility] [place] [address] 02/15 CBC w/ auto diff MO % % 5.3 12.2 10.9 FINAL Marcelo Mahmoods B&Whole Blood [facility] ([facility]), [address], [place] [facility] [place] [address] 02/15 CBC w/ auto diff EO % % 0.8 7.0 4.1 FINAL Marcelo Olson B&Whole Blood [facility] ([facility]), [address], Suite [facility] [place] [facility] 02/15 CBC w/ auto diff BA % % 0.2 1.2 0.5 FINAL Marcelo Mahmoods B&Whole Blood [facility] (T), [address], Suite [facility] [place] [facility] 02/15 CBC w/ auto diff RBC 10*6/u L 4.63 6.08 5.33 FINAL Marcelo Mahmoods B&Whole Blood [facility] (T), [address], Suite [facility] [place] [facility] 02/15 CBC w/ auto diff HGB g/dL 13.7 17.5 17.4 FINAL Marcelo Olson B&Whole Blood [facility] ([facility]), [address], Suite [facility] [place] [facility] 02/15 CBC w/ auto diff HCT % 40.1 51.0 50.4 FINAL Marcelo Mahmoods B&Whole Blood [facility] ([facility]), [address], Suite [facility] [place] [facility] 02/15 CBC w/ auto diff MCV fL 79.0 92.2 94.6 High FINAL Marcelo Mahmoods B&Whole Blood [facility] ([facility]), [address], [place] [facility] [place] [address] 02/15 CBC w/ auto diff MCH pg 25.7 32.2 32.6 High FINAL Marcelo Mahmoods B&Whole Blood [facility] ([facility]), [address], [place] [facility] [place] [address] 02/15 CBC w/ auto diff MCHC g/dL 32.3 36.5 34.5 FINAL Marcelo Mahmoods B&Whole Blood [facility] ([facility]), [address], [address] [place] [address] 02/15 CBC w/ auto diff RDW-C V, % % 11.6 14.4 14.0 FINAL Marcelo Mahmoods B&Whole Blood [facility] (T), [address], [address] [place] [address] 02/15 CBC w/ auto diff PLT 10*3/u L 163.0 337.0 172.0 FINAL aMrcelo Mahmoods B&Whole Blood [facility] ([facility]), [address], [address] [place] [address] 05/31 CBC w/ auto diff WBC 10*3/u L 4.2 9.1 10.4 High FINAL Marcelo Mahmoods B&Whole Blood [facility] ([facility]), [address], [address] [place] [address] 05/31 CBC w/ auto diff Cristobal # (ANC) 10*3/u L 1.78 5.38 5.26 FINAL Marcelo Mahmoods B&Whole Blood [facility] ([facility]), [address], [address] [place] [address] 05/31 CBC w/ auto diff LY # 10*3/u L 1.32 3.57 3.84 High FINAL Marcelo Mahmoods B&Whole Blood [facility] ([facility]), [address], [address] [place] [address] 05/31 CBC w/ auto diff MO # 10*3/u L 0.3 0.82 0.94 High FINAL Marcelo Mahmoods B&Whole Blood [facility] ([facility]), [address], [address] [place] [address] 05/31 CBC w/ auto diff EO # 10*3/u lL 0.04 0.54 0.30 FINAL Marcelo Mahmoods B&Whole Blood [facility] ([facility]), [address], [address] [place] [address] 05/31 CBC w/ auto diff BA # 10*3/u L 0.01 0.08 0.03 FINAL Marcelo Herms B&Whole Blood [facility] ([facility]), [address], [address] [place] [address] 05/31 CBC w/ auto diff Cristobal % % 34.0 67.9 50.7 FINAL Marcelo Herms B&Whole Blood [facility] (T), [address], Suite [facility] [place] [facility] 05/31 CBC w/ auto diff LY % % 21.8 53.1 37.0 FINAL Marcelo Olson B&Whole Blood [facility] (T), [address], [address] [place] [address] 05/31 CBC w/ auto diff MO % % 5.3 12.2 9.1 FINAL Marcelo Olson B&Whole Blood [facility] (T), [address], [address] [place] [address] 05/31 CBC w/ auto diff EO % % 0.8 7.0 2.9 FINAL Marcelo Olson B&Whole Blood [facility] (T), [address], [address] [place] [address] 05/31 CBC w/ auto diff BA % % 0.2 1.2 0.3 FINAL Marcelo Olson B&Whole Blood [facility] (T), [address], [address] [place] [address] 05/31 CBC w/ auto diff RBC 10*6/u L 4.63 6.08 5.01 FINAL Marcelo Olson B&Whole Blood [facility] (T), [address], [address] [place] [address] 05/31 CBC w/ auto diff HGB g/dL 13.7 17.5 16.4 FINAL Marcelo Olson B&Whole Blood [facility] (T), [address], [address] [place] [address] 05/31 CBC w/ auto diff HCT % 40.1 51.0 47.5 FINAL Marcelo Olson B&Whole Blood [facility] (T), [address], [address] [place] [address] 05/31 CBC w/ auto diff MCV fL 79.0 92.2 94.8 High FINAL Marcelo Olson B&Whole Blood [facility] (T), [address], [address] [place] [address] 05/31 CBC w/ auto diff MCH pg 25.7 32.2 32.7 High FINAL Marcelo Olson B&Whole Blood [facility] (T), [address], [address] [place] [address] 05/31 CBC w/ auto diff MCHC g/dL 32.3 36.5 34.5 FINAL Marcelo [facility] B&Whole Blood [facility] ([facility]), [address], [address] [place] [address] 05/31 CBC w/ auto diff RDW-C V, % % 11.6 14.4 13.8 FINAL Marcelo [facility] B&Whole Blood [facility] ([facility]), [address], [address] [place] [address] 05/31 CBC w/ auto diff PLT 10*3/u L 163.0 337.0 161.0 Low FINAL [facility] B&Whole Blood [facility] ([facility]), [address], [address] [place] [address] 06/21 CBC w/ auto diff WBC 10*3/u L 4.2 9.1 14.1 High FINAL [facility] (T), [address], [address] [place] [address] 06/21 CBC w/ auto diff Cristobal # (ANC) 10*3/u L 1.78 5.38 10.63 High FINAL [facility] (T), [address], [address] [place] [address] 06/21 CBC w/ auto diff LY # 10*3/u L 1.32 3.57 2.09 FINAL [facility] (T), [address], [address] [place], [place] [id number] 06/21 CBC w/ auto diff MO # 10*3/u L 0.3 0.82 1.34 High FINAL [facility] ([facility]), [address], [address] [place], [place] [id number] 06/21 CBC w/ auto diff EO # 10*3/u lL 0.04 0.54 0.03 Low FINAL [facility] ([facility]), [address], [address] [facility] [address] 06/21 CBC w/ auto diff BA # 10*3/u L 0.01 0.08 0.02 FINAL [facility] ([facility]), [address], [address] [place] [address] 06/21 CBC w/ auto diff Cristobal % % 34.0 67.9 75.4 High FINAL Marcelo [facility] ([facility]), [address], [address] [place] [address] 06/21 CBC w/ auto diff LY % % 21.8 53.1 14.8 Low FINAL Marcelo [facility] ([facility]), [address], [address] [place] [address] 06/21 CBC w/ auto diff MO % % 5.3 12[address] [facility] ([facility]), [address], [address] [place] [address] 06/21 CBC w/ auto diff EO % % 0.8 7.0 0.[address] [facility] ([facility]), [address], [address] [place] [address] 06/21 CBC w/ auto diff BA % % 0.2 1.2 0.1 Low FINAL Marcelo [facility] ([facility]), [address], [address] [place] [address] 06/21 CBC w/ auto diff RBC 10*6/u L 4.63 [address] [facility] ([facility]), [address], [address] [place] [address] 06/21 CBC w/ auto diff HGB g/dL 13.7 17.5 16.0 FINAL Marcelo [facility] ([facility]), [address], [address] [place] [address] 06/21 CBC w/ auto diff HCT % 40.1 51.0 47.5 FINAL Marcelo [facility] ([facility]), [address], [address] [place] [address] 06/21 CBC w/ auto diff MCV fL 79.0 92.2 [address] [facility] ([facility]), [address], [address] [place] [address] 06/21 CBC w/ auto diff MCH pg 25.7 32.2 32.7 High FINAL [facility] ([facility]), [address], [address] [facility] [address] 06/21 CBC w/ auto diff MCHC g/dL 32.3 36.5 33.7 FINAL [facility] (T), [address], [address] [facility] [address] 06/21 CBC w/ auto diff RDW-C V, % % 11.6 14.4 14.0 FINAL [facility] (T), [address], [address] [facility] [address] 06/21 CBC w/ auto diff PLT 10*3/u L 163.0 337.0 185.0 FINAL [facility] ([facility]), [address], [address] [facility] [address] 07/23 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) Patient: VALERIE PUENTES Sex: Male : [...] time(s), Entered By Barbara Casas RN on : IV De-Access : IV Access Method-Peripheral - New Start, IV Access Type-Iv Cath, Catheter-Dc'd, Site Care-Site Dressing Applied,Blood Return Noted During Administration,Therapy Completed Without Adverse Event, Site Assess-Line Intact,No Redness,No Swelling,No Tenderness,No Bruising, Entered By Barbara Casas RN on :31 Procedures : Therapeutic phlebotomy (procedure) - Associated Problem(s): Secondary polycythemia *; Volume Removed: 450 cc removed, Instructions: Eat regularly, Increase fluids, No prolonged standing, Change positions slowly, No strenuous activity, Selected Billing Code(s): PHLEBOTOMY THERAPEUTIC SEPARATE PROCEDURE (96954) Entered By Barbara Casas RN; Incident to Marcelo Olson MD
--- OUTSIDE RECORDS SUMMARY | 2025-10-19 16:59 | XMS_ITS ---
Author Name Interface, [id number] lity Address [address] [place] [address] Organization [facility] Address [address] [place] [address] Allergies and Adverse Reactions Medication/Group Name Reaction [...] L 4.2 9.1 14.1 High FINAL Marcelo [facility] ([facility]), [address], [address] [facility] [address] 06/21 CBC w/ auto diff Cristobal # (ANC) 10*3/u L 1.78 5.38 10.63 High FINAL Marceol [facility] ([facility]), [address], [address] [facility] [address] 06/21 CBC w/ auto diff LY # 10*3/u L 1.32 3.57 2.09 FINAL [facility] ([facility]), [address], [address] [facility] [address] 06/21 CBC w/ auto diff MO # 10*3/u L 0.3 0.82 1.34 High FINAL Marcelo [facility] ([facility]), [address], [address] [place] [address] 06/21 CBC w/ auto diff EO # 10*3/u lL 0.04 0.54 0.03 Low FINAL Marcelo [facility] ([facility]), [address], [address] [place] [address] 06/21 CBC w/ auto diff BA # 10*3/u L 0.01 0.08 0.02 FINAL Marcelo [facility] ([facility]), [address], [address] [place] [address] 06/21 CBC w/ auto diff Cristobal % % 34.0 67.9 75.4 High FINAL Marcelo [facility] ([facility]), [address], [address] [place] [address] 06/21 CBC w/ auto diff LY % % 21.8 53.1 14.8 Low FINAL Marcelo [facility] ([facility]), [address], [address] [place] [address] 06/21 CBC w/ auto diff MO % % 5.3 12.2 9.5 FINAL Marcelo [facility] ([facility]), [address], [address] [place] [address] 06/21 CBC w/ auto diff EO % % 0.8 7.0 0.2 Low FINAL Marcelo [facility] ([facility]), [address], [address] [place] [address] 06/21 CBC w/ auto diff BA % % 0.2 1.2 0.1 Low FINAL Marcelo [facility] ([facility]), [address], [address] [place] [address] 06/21 CBC w/ auto diff RBC 10*6/u L 4.63 6.08 4.90 FINAL Marcelo [facility] ([facility]), [address], [address] [place] [address] 06/21 CBC w/ auto diff HGB g/dL 13.7 17.5 16.0 FINAL [facility] ([facility]), [address], [address] [place] [address] 06/21 CBC w/ auto diff HCT % 40.1 51.0 47.5 FINAL [facility] ([facility]), [address], [address] [place] [address] 06/21 CBC w/ auto diff MCV fL 79.0 92.2 96.9 High FINAL [facility] ([facility]), [address], [address] [place], [place] [address] 06/21 CBC w/ auto diff MCH pg 25.7 32.2 32.7 High FINAL [facility] ([facility]), [address], [address] [place] [address] 06/21 CBC w/ auto diff MCHC g/dL 32.3 36.5 33.7 FINAL [facility] ([facility]), [address], [address] [facility] [address] 06/21 CBC w/ auto diff RDW-C V, % % 11.6 14.4 14.0 FINAL [facility] ([facility]), [address], [address] [facility] [address] 06/21 CBC w/ auto diff PLT 10*3/u L 163.0 337.0 185.0 FINAL [facility] ([facility]), [address], [address] [place], [place] [address] 07/23 Lab Repor t See daytime babysitter d Medications Date Name Route Dose Frequency Instructions Start Date End Date Status Fill Status Indication 12/22 Sitagli ptin-Me tformin Oral 50 mg-1,00 0 mg orally 1.0 2 times per day active 12/22 Aspirin Oral orally 81.0 mg daily active 12/22 Insulin Detemir Subcuta neous 100 unit/mL subcutan eously 36.0 every evening active 12/22 Cyanoco balamin Oral orally 5000.0 mcg daily active 12/22 [place] 3-DHA-E PA-Fish Oil Oral Liquid 1,600 mg-500 [...]
--- OUTSIDE RECORDS SUMMARY | 2025-10-19 16:59 | XMS_ITS ---
Author Name Interface, [id number] lity Address [address] [place] [address] Organization [facility] Address [address] [place] [address] Allergies and Adverse Reactions Medication/Group Name Reaction [...] 3MO RODRIGO FU TX AN D LABS 11/09/2019 APPOINTMENT and injaugustin 11/09/2019 APPOINTMENT and delmy 11/09/2019 APPOINTMENT and injaugustin 07/20/2019 APPOINTMENT 6mo rodrigo fu 07/20/2019 APPOINTMENT 6mo rodrigo fu 07/20/2019 APPOINTMENT Phleb 07/20/2019 APPOINTMENT 6mo rodrigo fu 07/20/2019 LAB_ORDER CBC w/ auto diff 11/09/2019 LAB_ORDER CBC w/ auto diff 02/16/2020 LAB_ORDER CBC w/ auto diff 05/10/2020 LAB_ORDER CBC w/ auto diff 05/31/2020 LAB_ORDER CBC w/ auto diff 08/31/2020 LAB_ORDER CBC w/ auto diff 06/21/2021 LAB_ORDER CBC w/ auto diff 12/22/2021 LAB_ORDER CBC w/ auto diff Reason for Visit CBC w/ auto diff Encounters Date Name 07/20/2019 Leukocytosis (disord er) 07/20/2019 Secondary polycythem ia 07/20/2019 Tobacco abuse Diagnostic Results Date Type Test Units Lower Limit Upper Limit Result Flag Comments Status Ordered By Specimen Source Lab Address 07/20 CBC w/ auto diff WBC 10*3/u L 4.2 9.1 9.1 High FINAL Marcelo Olson B&Whole Blood [facility] ([facility]), [address], [address] [place] [address] 07/20 CBC w/ auto diff Cristobal # (ANC) 10*3/u L 1.78 5.38 4.47 FINAL Marcelo Olson B&Whole Blood [facility] ([facility]), [address], [address] [facility] [place] Replaced by [facility] 07/20 CBC w/ auto diff LY # 10*3/u L 1.32 3.57 3.40 FINAL Marcelo Olson B&Whole Blood [facility] ([facility]), [address], [address] [place], [place] [id number] 07/20 CBC w/ auto diff MO # 10*3/u L 0.3 0.82 0.80 FINAL Marcelo Olson B&Whole Blood [facility] ([facility]), [address], [address] [facility] [place] [address] 07/20 CBC w/ auto diff EO # 10*3/u lL 0.04 0.54 0.38 FINAL Marcelo Olson B&Whole Blood [facility] ([facility]), [address], [address] [facility] [place] [address] 07/20 CBC w/ auto diff BA # 10*3/u L 0.01 0.08 0.03 FINAL Marcelo Funez&Whole Blood [facility] ([facility]), [address], [address] [place] [address] 07/20 CBC w/ auto diff Cristobal % % 34.0 67.9 49.3 FINAL Marcelo Herms B&Whole Blood [facility] ([facility]), [address], [address] [place] [address] 07/20 CBC w/ auto diff LY % % 21.8 53.1 37.4 FINAL Marcelo Herms B&Whole Blood [facility] (T), [address], [address] [place] [address] 07/20 CBC w/ auto diff MO % % 5.3 12.2 8.8 FINAL Marcelo Herms B&Whole Blood [facility] ([facility]), [address], [address] [place] [address] 07/20 CBC w/ auto diff EO % % 0.8 7.0 4.2 FINAL Marcelo Herms B&Whole Blood [facility] (T), [address], [address] [place] [address] 07/20 CBC w/ auto diff BA % % 0.2 1.2 0.3 FINAL Marcelo Herms B&Whole Blood [facility] ([facility]), [address], [address] [place] [address] 07/20 CBC w/ auto diff RBC 10*6/u L 4.63 6.08 5.60 FINAL Marcelo Herms B&Whole Blood [facility] ([facility]), [address], [address] [place] [address] 07/20 CBC w/ auto diff HGB g/dL 13.7 17.5 18.2 High FINAL Marcelo Herms B&Whole Blood [facility] (T), [address], [address] [place] [address] 07/20 CBC w/ auto diff HCT % 40.1 51.0 52.8 High FINAL Marcelo Herms B&Whole Blood [facility] ([facility]), [address], [address] [place] [address] 07/20 CBC w/ auto diff MCV fL 79.0 92.2 94.3 High FINAL Marcelo Herms B&Whole Blood [facility] ([facility]), [address], [address] [place] [address] 07/20 CBC w/ auto diff MCH pg 25.7 32.2 32.5 High FINAL Marcelo Herms B&Whole Blood [facility] ([facility]), [address], [address] [place] [address] 07/20 CBC w/ auto diff MCHC g/dL 32.3 36.5 34.5 FINAL Marcelo Herms B&Whole Blood [facility] ([facility]), [address], [address] [place] [address] 07/20 CBC w/ auto diff RDW-C V, % % 11.6 14.4 12.5 FINAL Marcelo Herms B&Whole Blood [facility] ([facility]), [address], [address] [place] [address] 07/20 CBC w/ auto diff PLT 10*3/u L 163.0 337.0 160.0 Low FINAL Marcelo Herms B&Whole Blood [facility] ([facility]), [address], [address] [place] [address] 11/09 CBC w/ auto diff WBC 10*3/u L 4.2 9.1 8.8 FINAL Edna Ovesen B&Whole Blood 5 11/09 CBC w/ auto diff Cristobal # (ANC) 10*3/u L 1.78 5.38 4.42 FINAL Edna Ovesen B&Whole Blood 5 11/09 CBC w/ auto diff LY # 10*3/u L 1.32 3.57 3.06 FINAL Edna Ovesen B&Whole Blood 5 11/09 CBC w/ auto diff MO # 10*3/u L 0.3 0.82 0.85 High FINAL Edna Ovesen B&Whole Blood 5 11/09 CBC w/ auto diff EO # 10*3/u lL 0.04 0.54 0.40 FINAL Edna Ovesen B&Whole Blood 5 11/09 CBC w/ auto diff BA # 10*3/u L 0.01 0.08 0.06 FINAL Edna Ovesen B&Whole Blood 5 11/09 CBC w/ auto diff Cristobal % % 34.0 67.9 50.2 FINAL Edna Ovesen B&Whole Blood 5 11/09 CBC w/ auto diff LY % % 21.8 53.1 34.8 FINAL Edna Ovesen B&Whole Blood 5 11/09 CBC w/ auto diff MO % % 5.3 12.2 9.7 FINAL Edna Ovesen B&Whole Blood 5 11/09 CBC w/ auto diff EO % % 0.8 7.0 4.6 FINAL Edna Ovesen B&Whole Blood 5 11/09 CBC w/ auto diff BA % % 0.2 1.2 0.7 FINAL Edna Ovesen B&Whole Blood 5 11/09 CBC w/ auto diff RBC 10*6/u L 4.63 6.08 5.50 FINAL Edna Ovesen B&Whole Blood 5 11/09 CBC w/ auto diff HGB g/dL 13.7 17.5 18.1 High FINAL Edna Ovesen B&Whole Blood 5 11/09 CBC w/ auto diff HCT % 40.1 51.0 52.0 High FINAL Edna Ovesen B&Whole Blood 5 11/09 CBC w/ auto diff MCV fL 79.0 92.2 94.5 High FINAL Edna Ovesen B&Whole Blood 5 11/09 CBC w/ auto diff MCH pg 25.7 32.2 32.9 High FINAL Edna Ovesen B&Whole Blood 5 11/09 CBC w/ auto diff MCHC g/dL 32.3 36.5 34.8 FINAL Edna Ovesen B&Whole Blood 5 11/09 CBC w/ auto diff RDW-C V, % % 11.6 14.4 12.7 FINAL Edna Ovesen B&Whole Blood 5 11/09 CBC w/ auto diff PLT 10*3/u L 163.0 337.0 137.0 Low FINAL Edna Ovesen B&Whole Blood 5 02/12 Lab Repor t See fork lift mechanic d 02/15 CBC w/ auto diff WBC 10*3/u L 4.2 9.1 8.8 FINAL Marcelo Olson B&Whole Blood [facility] ([facility]), [address], [address] [place] [address] 02/15 CBC w/ auto diff Cristobal # (ANC) 10*3/u L 1.78 5.38 4.12 FINAL Marcelo Mahmoods B&Whole Blood [facility] ([facility]), [address], [address] [facility] [place] [address] 02/15 CBC w/ auto diff LY # 10*3/u L 1.32 3.57 3.32 FINAL Marcelo Mahmoods B&Whole Blood [facility] ([facility]), [address], [address] [facility] [place] [address] 02/15 CBC w/ auto diff MO # 10*3/u L 0.3 0.82 0.96 High FINAL Marcelo Mahmoods B&Whole Blood [facility] ([facility]), [address], [address] [facility] [place] [address] 02/15 CBC w/ auto diff EO # 10*3/u lL 0.04 0.54 0.36 FINAL Marcelo Mahmoods B&Whole Blood [facility] ([facility]), [address], [address] [facility] [place] [address] 02/15 CBC w/ auto diff BA # 10*3/u L 0.01 0.08 0.04 FINAL Marcelo Mahmoods B&Whole Blood [facility] ([facility]), [address], [address] [facility] [place] [address] 02/15 CBC w/ auto diff Cristobal % % 34.0 67.9 46.8 FINAL Marcelo Mahmoods B&Whole Blood [facility] ([facility]), [address], [address] [facility] [place] Replaced by [facility] 02/15 CBC w/ auto diff LY % % 21.8 53.1 37.7 FINAL Marcelo Mahmoods B&Whole Blood [facility] ([facility]), [address], [address] [facility] [place] [address] 02/15 CBC w/ auto diff MO % % 5.3 12.2 10.9 FINAL Marcelo Mahmoods B&Whole Blood [facility] ([facility]), [address], [address] [facility] [place] [address] 02/15 CBC w/ auto diff EO % % 0.8 7.0 4.1 FINAL Marcelo Mahmoods B&Whole Blood [facility] ([facility]), [address], [address] [facility] [place] [address] 02/15 CBC w/ auto diff BA % % 0.2 1.2 0.5 FINAL Marcelo Mahmoods B&Whole Blood [facility] ([facility]), [address], [address] [facility] [place] [address] 02/15 CBC w/ auto diff RBC 10*6/u L 4.63 6.08 5.33 FINAL Marcelo Olson B&Whole Blood [facility] ([facility]), [address], [address] [facility] [place] Replaced by [facility] 02/15 CBC w/ auto diff HGB g/dL 13.7 17.5 17.4 FINAL Marcelo Olson B&Whole Blood [facility] ([facility]), [address], [address] [facility] [place] Replaced by [facility] 02/15 CBC w/ auto diff HCT % 40.1 51.0 50.4 FINAL Marcelo Olson B&Whole Blood [facility] ([facility]), [address], [address] [place] [address] 02/15 CBC w/ auto diff MCV fL 79.0 92.2 94.6 High FINAL Marcelo Mahmoods B&Whole Blood [facility] ([facility]), [address], [address] [place] [address] 02/15 CBC w/ auto diff MCH pg 25.7 32.2 32.6 High FINAL Marcelo Olson B&Whole Blood [facility] ([facility]), [address], [address] [place] [address] 02/15 CBC w/ auto diff MCHC g/dL 32.3 36.5 34.5 FINAL Marcelo Olson B&Whole Blood [facility] ([facility]), [address], [address] [place] [address] 02/15 CBC w/ auto diff RDW-C V, % % 11.6 14.4 14.0 FINAL Marcelo Olson B&Whole Blood [facility] ([facility]), [address], [address] [facility] [place] Replaced by [facility] 02/15 CBC w/ auto diff PLT 10*3/u L 163.0 337.0 172.0 FINAL Marcelo Mahmoods B&Whole Blood [facility] ([facility]), [address], [address] [facility] [place] [address] 05/31 CBC w/ auto diff WBC 10*3/u L 4.2 9.1 10.4 High FINAL Marcelo Mahmoods B&Whole Blood [facility] ([facility]), [address], [address] [facility] [place] Replaced by [facility] 05/31 CBC w/ auto diff Cristobal # (ANC) 10*3/u L 1.78 5.38 5.26 FINAL Marcelo Olson B&Whole Blood [facility] ([facility]), [address], [address] [place] [address] 05/31 CBC w/ auto diff LY # 10*3/u L 1.32 3.57 3.84 High FINAL Marcelo Olson B&Whole Blood [facility] ([facility]), [address], [address] [place] [address] 05/31 CBC w/ auto diff MO # 10*3/u L 0.3 0.82 0.94 High FINAL Marcelo Olson B&Whole Blood [facility] ([facility]), [address], [address] [place] [address] 05/31 CBC w/ auto diff EO # 10*3/u lL 0.04 0.54 0.30 FINAL Marcelo Olson B&Whole Blood [facility] ([facility]), [address], [address] [place] [address] 05/31 CBC w/ auto diff BA # 10*3/u L 0.01 0.08 0.03 FINAL Marcelo Olson B&Whole Blood [facility] ([facility]), [address], [address] [place] [address] 05/31 CBC w/ auto diff Cristobal % % 34.0 67.9 50.7 FINAL Marcelo Olson B&Whole Blood [facility] ([facility]), [address], [address] [place] [address] 05/31 CBC w/ auto diff LY % % 21.8 53.1 37.0 FINAL Marcelo Olson B&Whole Blood [facility] ([facility]), [address], [address] [place] [address] 05/31 CBC w/ auto diff MO % % 5.3 12.2 9.1 FINAL Marcelo Mahmoods B&Whole Blood [facility] ([facility]), [address], [address] [place] [address] 05/31 CBC w/ auto diff EO % % 0.8 7.0 2.9 FINAL Marcelo Mahmoods B&Whole Blood [facility] ([facility]), [address], [address] [place] [address] 05/31 CBC w/ auto diff BA % % 0.2 1.2 0.3 FINAL Marcelo Mahmoods B&Whole Blood [facility] ([facility]), [address], [address] [place] [address] 05/31 CBC w/ auto diff RBC 10*6/u L 4.63 6.08 5.01 FINAL Marcelo Mahmoods B&Whole Blood [facility] ([facility]), [address], [address] [place] [address] 05/31 CBC w/ auto diff HGB g/dL 13.7 17.5 16.4 FINAL Marcelo Mahmoods B&Whole Blood [facility] ([facility]), [address], [address] [place] [address] 05/31 CBC w/ auto diff HCT % 40.1 51.0 47.5 FINAL Marcelo Mahmoods B&Whole Blood [facility] ([facility]), [address], [address] [place] [address] 05/31 CBC w/ auto diff MCV fL 79.0 92.2 94.8 High FINAL Marcelo Mahmoods B&Whole Blood [facility] ([facility]), [address], [address] [place] [address] 05/31 CBC w/ auto diff MCH pg 25.7 32.2 32.7 High FINAL [facility] B&Whole Blood [facility] ([facility]), [address], [address] [place] [address] 05/31 CBC w/ auto diff MCHC g/dL 32.3 36.5 34.5 FINAL Marcelo Mahmoods B&Whole Blood [facility] ([facility]), [address], [address] [place] [address] 05/31 CBC w/ auto diff RDW-C V, % % 11.6 14.4 13.8 FINAL Marcelo Mahmoods B&Whole Blood [facility] ([facility]), [address], [address] [place] [address] 05/31 CBC w/ auto diff PLT 10*3/u L 163.0 337.0 161.0 Low FINAL Marcelo Mahmoods B&Whole Blood [facility] ([facility]), [address], [address] [place] [address] 06/21 CBC w/ auto diff WBC 10*3/u L 4.2 9.1 14.1 High FINAL Marcelo [facility] ([facility]), [address], [address] [place] [address] 06/21 CBC w/ auto diff Cristobal # (ANC) 10*3/u L 1.78 5.38 10.63 High FINAL Marcelo [facility] ([facility]), [address], [address] [place] [address] 06/21 CBC w/ auto diff LY # 10*3/u L 1.32 3.57 2.09 FINAL Marcelo [facility] ([facility]), [address], [address] [place] [address] 06/21 CBC w/ auto diff MO # 10*3/u L 0.3 0.82 1.34 High FINAL Marcelo [facility] ([facility]), [address], [address] [place] [address] 06/21 CBC w/ auto diff EO # 10*3/u lL 0.04 0.54 0.03 Low FINAL Marcelo [facility] ([facility]), [address], [address] [place] [address] 06/21 CBC w/ auto diff BA # 10*3/u L 0.01 0.08 0.02 FINAL Marcelo [facility] ([facility]), [address], [address] [place] [address] 06/21 CBC w/ auto diff Cristobal % % 34.0 67.9 75.4 High FINAL Marcelo [facility] ([facility]), [address], [address] [place] [address] 06/21 CBC w/ auto diff LY % % 21.8 53.1 14.8 Low FINAL Marcelo [facility] ([facility]), [address], [address] [place] [address] 06/21 CBC w/ auto diff MO % % 5.3 12.2 9.5 FINAL Marcelo [facility] ([facility]), [address], [address] [place] [address] 06/21 CBC w/ auto diff EO % % 0.8 7.0 0.2 Low FINAL [facility] ([facility]), [address], [address] [place] [address] 06/21 CBC w/ auto diff BA % % 0.2 1.2 0.1 Low FINAL [facility] ([facility]), [address], [address] [place] [address] 06/21 CBC w/ auto diff RBC 10*6/u L 4.63 6.08 4.90 FINAL [facility] ([facility]), [address], [address] [place] [address] 06/21 CBC w/ auto diff HGB g/dL 13.7 17.5 16.0 FINAL [facility] ([facility]), [address], [address] [place] [address] 06/21 CBC w/ auto diff HCT % 40.1 51.0 47.5 FINAL [facility] ([facility]), [address], [address] [place] [address] 06/21 CBC w/ auto diff MCV fL 79.0 92.2 96.9 High FINAL [facility] ([facility]), [address], [address] [place] [address] 06/21 CBC w/ auto diff MCH pg 25.7 32.2 32.7 High FINAL [facility] ([facility]), [address], [address] [place] [address] 06/21 CBC w/ auto diff MCHC g/dL 32.3 36.5 33.7 FINAL [facility] ([facility]), [address], [address] [place] [address] 06/21 CBC w/ auto diff RDW-C V, % % 11.6 14.4 14.0 FINAL [facility] ([facility]), [address], [address] [place] [address] 06/21 CBC w/ auto diff PLT 10*3/u L 163.0 337.0 185.0 FINAL Marcelo Olson [facility] ([facility]), [address], [address] [facility] [address] 07/23 Lab Repor t See fork lift mechanic d Medications Date Name Route Dose Frequency Instructions Start Date End Date Status Fill Status Indication 12/22 Sitagli ptin-Me tformin Oral 50 mg-1,00 0 mg orally 1.0 2 times per day active 12/22 Aspirin Oral orally 81.0 mg daily active 12/22 Insulin Detemir Subcuta neous 100 unit/mL subcutan eously 36.0 every evening active 12/22 Cyanoco balamin Oral orally 5000.0 mcg daily active 12/22 [place] 3-DHA-E PA-Fish Oil Oral Liquid 1,600 mg-500 [...] headache Active Vital Signs Date Type Value 07/20/2019 Body Temperature 98.00 07/20/2019 Heart Beat 64.00 07/20/2019 Respiratory Rate 15.00 07/20/2019 Intravascular Systolic 130 07/20/2019 Intravascular Diastolic 62 07/20/2019 BSA 2.00 07/20/2019 Weight 180.20 07/20/2019 Height 69.50 07/20/2019 BMI 26.23 07/20/2019 Pain Scale 6.00 11/09/2019 Pain Scale 0.00 11/09/2019 BSA 1.98 11/09/2019 BMI 25.53 11/09/2019 Height 69.50 11/09/2019 Weight 175.40 11/09/2019 Intravascular Systolic 120 11/09/2019 Intravascular Diastolic 66 11/09/2019 Respiratory Rate 15.00 11/09/2019 Heart Beat 72.00 11/09/2019 Body Temperature 97.80 02/16/2020 BSA 1.95 02/16/2020 BMI 24.80 02/16/2020 Height 69.50 02/16/2020 Weight 170.40 02/16/2020 Body Temperature 97.60 02/16/2020 Intravascular Systolic 110 02/16/2020 Intravascular Diastolic 62 02/16/2020 Respiratory Rate 16.00 02/16/2020 Heart Beat 72.00 02/16/2020 Pain Scale 0.00 05/31/2020 Heart Beat 72.00 05/31/2020 Body Temperature 98.00 05/31/2020 Respiratory Rate 14.00 05/31/2020 Intravascular Systolic 114 05/31/2020 Intravascular Diastolic 62 05/31/2020 Pain Scale 0.00 05/31/2020 Weight 168.00 05/31/2020 Height 69.50 05/31/2020 BMI 24.45 05/31/2020 BSA 1.93 06/21/2021 Body Temperature 97.20 06/21/2021 Heart Beat 72.00 06/21/2021 Respiratory Rate 10.00 06/21/2021 Intravascular Systolic 120 06/21/2021 Intravascular Diastolic 70 06/21/2021 BMI 24.77 06/21/2021 Pain Scale 0.00 06/21/2021 Weight 170.20 06/21/2021 Height 69.50 06/21/2021 BSA 1.95 Notes Section * Nurse Note for: 16-FEB-20 [facility] Nurse Note Print Location: Unknown Date/Time Printed: 10/19/2025 16:59 ([facility]) Patient: VALERIE PUENTES Sex: Male : [...] . Entered By Barbara Casas RN on 15: IV Access/Lab Draw : IV Access-Peripheral - [...] Selected Billing Code(s): PHLEBOTOMY THERAPEUTIC SEPARATE PROCEDURE (64541) Entered By Barbara Casas RN; Incident to Marcelo Olson MD * Nurse Note for: 09-NOV-19 [facility] Nurse Note Print Location: Unknown Date/Time Printed: 10/19/2025 16:59 ([facility]) Patient: VALERIE PUENTES Sex: Male : 1960 Date of Service: 11/09/2019 Allergies : Phenergan Vital Signs : Time: 13:52. Weight: 175.4 lb (79.56 kg). Height: 69.5 in (176.53 cm). BMI: 25.53 (kg/m2) . BSA: 1.98 (m2) . Temperature: 97.8 F (36.56 C). Pulse: 72 (/min) . Respirations: 15 (/min) . Blood pressure: 120/66 (mm Hg). Pain Scale: 0. Entered by Stefanie Vick MA 11/09/2019 13:54 Patient Assessment : Positive results Assessment : [...] Urinary Changes , Bleeding . Entered By Ju Gupta RN on 15:05 IV Access/Lab Draw : IV Access-Peripheral - New Start, Needle Type-Iv Cath, Needle Size-18 Gauge, Access Site-Left Arm, Site Assess List-Blood Return,No Redness,No Swelling,No Tenderness,No Bruising, Site Care Checklist-Aseptic Technique, Lab Drawn-No, Entered By Ju Gupta RN on 15:06 IV De-Access : IV Access Method-Peripheral - New Start, IV Access Type-Iv Cath, Catheter-Dc'd, Site Care-Site Dressing Applied,Therapy Completed Without Adverse Event, Site Assess-Line Intact,No Redness,No Swelling,No Tenderness,No Bruising, Entered By Ju Gupta RN on 15:06 Procedures : Therapeutic phlebotomy (procedure) - Associated Problem(s): Secondary polycythemia *; Selected Billing Code(s): PHLEBOTOMY THERAPEUTIC SEPARATE PROCEDURE (78322) Entered By Ju Gupta RN; Incident to Marcelo Olson MD * Nurse Note for: 20-JUL-19 [facility] Nurse Note Print Location: Unknown Date/Time Printed: 10/19/2025 16:59 ([facility]) Patient: VALERIE PUENTES Sex: Male : 1960 Date of Service: 07/20/2019 Allergies : Phenergan Vital Signs : Time: 14:54. Weight: 180.2 lb (81.74 kg). Height: 69.5 in (176.53 cm). BMI: 26.23 (kg/m2) . BSA: 2 (m2) . Temperature: 98 F (36.67 C). Pulse: 64 (/min) . Respirations: 15 (/min) . Blood pressure: 130/62 (mm Hg). Pain Scale: 6. Entered by Delmi Stein MA 07/20/2019 14:55 Patient Assessment : Positive results Assessment : Labs Verified: Yes, Alert, oriented with appropriate behavior. Complains of Pain-6, Fatigue. Negative results Assessment : Gait Changes. Denies Neuropathy , Anxiety/Depression , Fever, Chills or Night Sweats , Signs of Infection , Skin Changes , Dizziness , Headaches , Nausea , Breathing Changes , Cough , Mouth Sores/Stomatitis/Mucositis , Changes in Appetite , Vomiting , Diarrhea , Constipation , Urinary Changes , Bleeding . Entered By Barbara Garcia RN on 16:15 IV Access/Lab Draw : IV Access-Peripheral - New Start, Needle Type-Iv Cath, Needle Size-18 Gauge, Access Site-Right Arm,Site Assess List-Blood Return,No Redness,No Swelling,No Tenderness,No Bruising, Site Care Checklist-Aseptic Technique, Lab Drawn-No, Access Attempts-1 time(s), Entered By Barbara Garcia RN on 16:16 IV De-Access : IV Access Method-Peripheral - New Start, IV Access Type-Iv Cath, Catheter-Dc'd, Site Care-Bandage Applied,Therapy Completed Without Adverse Event, Site Assess- Line Intact,No Redness,No Swelling,No Tenderness,No Bruising, Entered By Barbara Garcia RN on 16:16 Procedures : Therapeutic phlebotomy (procedure) - Associated Problem(s): Secondary polycythemia *; Selected Billing Code(s): PHLEBOTOMY THERAPEUTIC SEPARATE PROCEDURE (39053) Entered By Barbara Garcia RN; Incident to Marcelo Olson MD
--- OUTSIDE RECORDS SUMMARY | 2025-10-19 17:00 | XMS_ITS ---
Author Name Interface, [id number] lity Address [address] [place] [address] Organization [facility] Address [address] [place] [address] Allergies and Adverse Reactions Medication/Group Name Reaction [...] 9.1 High FINAL Marcelo Olson B&Whole Blood [facility] ([facility]), [address], [address] [place] [address] 07/20 CBC w/ auto diff Cristobal # (ANC) 10*3/u L 1.78 5.38 4.47 FINAL Marcelo Olson B&Whole Blood [facility] ([facility]), [address], Suite [facility] [place] [facility] 07/20 CBC w/ auto diff LY # 10*3/u L 1.32 3.57 3.40 FINAL Marcelo Olson B&Whole Blood [facility] ([facility]), [address], [address] [place], [place] [id number] 07/20 CBC w/ auto diff MO # 10*3/u L 0.3 0.82 0.80 FINAL Marcelo Olson B&Whole Blood [facility] ([facility]), [address], Suite [facility] [place] [address] 07/20 CBC w/ auto diff EO # 10*3/u lL 0.04 0.54 0.38 FINAL Marcelo Olson B&Whole Blood [facility] ([facility]), [address], Suite [facility] [place] [address] 07/20 CBC w/ auto diff BA # 10*3/u L 0.01 0.08 0.03 FINAL Marcelo Funez&Whole Blood [facility] ([facility]), [address], [address] [place] [address] 07/20 CBC w/ auto diff Cristobal % % 34.0 67.9 49.3 FINAL Marcelo Herms B&Whole Blood [facility] ([facility]), [address], [address] [place] [address] 07/20 CBC w/ auto diff LY % % 21.8 53.1 37.4 FINAL Marcelo Herms B&Whole Blood [facility] ([facility]), [address], [address] [place] [address] 07/20 CBC w/ auto diff MO % % 5.3 12.2 8.8 FINAL Marcelo Herms B&Whole Blood [facility] ([facility]), [address], [address] [place] [address] 07/20 CBC w/ auto diff EO % % 0.8 7.0 4.2 FINAL Marcelo Herms B&Whole Blood [facility] ([facility]), [address], [address] [place] [address] 07/20 CBC w/ auto diff BA % % 0.2 1.2 0.3 FINAL Marcelo Herms B&Whole Blood [facility] ([facility]), [address], [address] [place] [address] 07/20 CBC w/ auto diff RBC 10*6/u L 4.63 6.08 5.60 FINAL Marcelo Herms B&Whole Blood [facility] ([facility]), [address], [address] [place] [address] 07/20 CBC w/ auto diff HGB g/dL 13.7 17.5 18.2 High FINAL Marcelo Herms B&Whole Blood [facility] ([facility]), [address], [address] [place] [address] 07/20 CBC w/ auto diff HCT % 40.1 51.0 52.8 High FINAL Marcelo Herms B&Whole Blood [facility] ([facility]), [address], [address] [place] [address] 07/20 CBC w/ auto diff MCV fL 79.0 92.2 94.3 High FINAL Marcelo Herms B&Whole Blood [facility] ([facility]), [address], [address] [place] [address] 07/20 CBC w/ auto diff MCH pg 25.7 32.2 32.5 High FINAL Marcelo Herms B&Whole Blood [facility] ([facility]), [address], [address] [place] [address] 07/20 CBC w/ auto diff MCHC g/dL 32.3 36.5 34.5 FINAL Marcelo Herms B&Whole Blood [facility] ([facility]), [address], [address] [place] [address] 07/20 CBC w/ auto diff RDW-C V, % % 11.6 14.4 12.5 FINAL Marcelo Herms B&Whole Blood [facility] ([facility]), [address], [address] [place] [address] 07/20 CBC w/ auto diff PLT 10*3/u L 163.0 337.0 160.0 Low FINAL Marcelo Herms B&Whole Blood [facility] ([facility]), [address], [address] [place] [address] 11/09 CBC w/ auto diff WBC 10*3/u [...] Blood 5 02/12 Lab Repor t See manager coding d 02/15 CBC w/ auto diff WBC 10*3/u L 4.2 9.1 8.8 FINAL Marcelo Olson B&Whole Blood [facility] ([facility]), [address], [address] [place] [address] 02/15 CBC w/ auto diff Cristobal # (ANC) 10*3/u L 1.78 5.38 4.12 FINAL Marcelo Mahmoods B&Whole Blood [facility] ([facility]), [address], Suite [facility] [place] [address] 02/15 CBC w/ auto diff LY # 10*3/u L 1.32 3.57 3.32 FINAL Marcelo Mahmoods B&Whole Blood [facility] ([facility]), [address], Suite [facility] [place] [address] 02/15 CBC w/ auto diff MO # 10*3/u L 0.3 0.82 0.96 High FINAL Marcelo Mahmoods B&Whole Blood [facility] ([facility]), [address], [address] [facility] [place] [address] 02/15 CBC w/ auto diff EO # 10*3/u lL 0.04 0.54 0.36 FINAL Marcelo Mahmoods B&Whole Blood [facility] ([facility]), [address], [address] [facility] [place] [address] 02/15 CBC w/ auto diff BA # 10*3/u L 0.01 0.08 0.04 FINAL Marcelo Mahmoods B&Whole Blood [facility] ([facility]), [address], [address] [facility] [place] [address] 02/15 CBC w/ auto diff Cristobal % % 34.0 67.9 46.8 FINAL Marcelo Mahmoods B&Whole Blood [facility] ([facility]), [address], [address] [facility] [place] [facility] 02/15 CBC w/ auto diff LY % % 21.8 53.1 37.7 FINAL Marcelo Mahmoods B&Whole Blood [facility] ([facility]), [address], [address] [facility] [place] [address] 02/15 CBC w/ auto diff MO % % 5.3 12.2 10.9 FINAL Marcelo Mahmoods B&Whole Blood [facility] ([facility]), [address], [address] [facility] [place] [address] 02/15 CBC w/ auto diff EO % % 0.8 7.0 4.1 FINAL Marcelo Mahmoods B&Whole Blood [facility] ([facility]), [address], [address] [facility] [place] [address] 02/15 CBC w/ auto diff BA % % 0.2 1.2 0.5 FINAL Marcelo Mahmoods B&Whole Blood [facility] ([facility]), [address], [address] [facility] [place] [address] 02/15 CBC w/ auto diff RBC 10*6/u L 4.63 6.08 5.33 FINAL Marcelo Olson B&Whole Blood [facility] ([facility]), [address], [address] [facility] [place] [facility] 02/15 CBC w/ auto diff HGB g/dL 13.7 17.5 17.4 FINAL Marcelo Olson B&Whole Blood [facility] ([facility]), [address], [address] [facility] [place] [facility] 02/15 CBC w/ auto diff HCT % 40.1 51.0 50.4 FINAL Marcelo Olson B&Whole Blood [facility] ([facility]), [address], [address] [place] [address] 02/15 CBC w/ auto diff MCV fL 79.0 92.2 94.6 High FINAL Marcelo Mahmoods B&Whole Blood [facility] ([facility]), [address], [address] [place] [address] 02/15 CBC w/ auto diff MCH pg 25.7 32.2 32.6 High FINAL Marcelo Olson B&Whole Blood [facility] ([facility]), [address], [address] [place] [address] 02/15 CBC w/ auto diff MCHC g/dL 32.3 36.5 34.5 FINAL Marcelo Olson B&Whole Blood [facility] ([facility]), [address], [address] [place] [address] 02/15 CBC w/ auto diff RDW-C V, % % 11.6 14.4 14.0 FINAL Marcelo Olson B&Whole Blood [facility] ([facility]), [address], [address] [facility] [place] [facility] 02/15 CBC w/ auto diff PLT 10*3/u L 163.0 337.0 172.0 FINAL Marcelo Mahmoods B&Whole Blood [facility] ([facility]), [address], [address] [facility] [place] [address] 05/31 CBC w/ auto diff WBC 10*3/u L 4.2 9.1 10.4 High FINAL Marcelo Mahmoods B&Whole Blood [facility] ([facility]), [address], [address] [facility] [place] [facility] 05/31 CBC w/ auto diff Cristobal # (ANC) 10*3/u L 1.78 5.38 5.26 FINAL Marcelo Olson B&Whole Blood [facility] (T), [address], [address] [place] [address] 05/31 CBC w/ auto diff LY # 10*3/u L 1.32 3.57 3.84 High FINAL Marcelo Olson B&Whole Blood [facility] (T), [address], [address] [place] [address] 05/31 CBC w/ auto diff MO # 10*3/u L 0.3 0.82 0.94 High FINAL Marcelo Olson B&Whole Blood [facility] ([facility]), [address], [address] [place] [address] 05/31 CBC w/ auto diff EO # 10*3/u lL 0.04 0.54 0.30 FINAL Marcelo Olson B&Whole Blood [facility] ([facility]), [address], [address] [place] [address] 05/31 CBC w/ auto diff BA # 10*3/u L 0.01 0.08 0.03 FINAL Marcelo Olson B&Whole Blood [facility] ([facility]), [address], [address] [place] [address] 05/31 CBC w/ auto diff Cristobal % % 34.0 67.9 50.7 FINAL Marcelo Olson B&Whole Blood [facility] (T), [address], [address] [place] [address] 05/31 CBC w/ auto diff LY % % 21.8 53.1 37.0 FINAL Marcelo Olson B&Whole Blood [facility] ([facility]), [address], [address] [place] [address] 05/31 CBC w/ auto diff MO % % 5.3 12.2 9.1 FINAL Marcelo Mahmoods B&Whole Blood [facility] (T), [address], [address] [place] [address] 05/31 CBC w/ auto diff EO % % 0.8 7.0 2.9 FINAL Marcelo Mahmoods B&Whole Blood [facility] ([facility]), [address], [address] [place] [address] 05/31 CBC w/ auto diff BA % % 0.2 1.2 0.3 FINAL Marcelo Mahmoods B&Whole Blood [facility] ([facility]), [address], [address] [place] [address] 05/31 CBC w/ auto diff RBC 10*6/u L 4.63 6.08 5.01 FINAL Marcelo Mahmoods B&Whole Blood [facility] ([facility]), [address], [address] [place] [address] 05/31 CBC w/ auto diff HGB g/dL 13.7 17.5 16.4 FINAL Marcelo Mahmoods B&Whole Blood [facility] ([facility]), [address], [address] [place] [address] 05/31 CBC w/ auto diff HCT % 40.1 51.0 47.5 FINAL Marcelo Mahmoods B&Whole Blood [facility] ([facility]), [address], [address] [place] [address] 05/31 CBC w/ auto diff MCV fL 79.0 92.2 94.8 High FINAL Marcelo Mahmoods B&Whole Blood [facility] ([facility]), [address], [address] [place] [address] 05/31 CBC w/ auto diff MCH pg 25.7 32.2 32.7 High FINAL [facility] B&Whole Blood [facility] ([facility]), [address], [address] [place] [address] 05/31 CBC w/ auto diff MCHC g/dL 32.3 36.5 34.5 FINAL Marcelo Mahmoods B&Whole Blood [facility] ([facility]), [address], [address] [place] [address] 05/31 CBC w/ auto diff RDW-C V, % % 11.6 14.4 13.8 FINAL Marcelo Mahmoods B&Whole Blood [facility] ([facility]), [address], [address] [place] [address] 05/31 CBC w/ auto diff PLT 10*3/u L 163.0 337.0 161.0 Low FINAL Marcelo Mahmoods B&Whole Blood [facility] ([facility]), [address], [address] [place] [address] 06/21 CBC w/ auto diff WBC 10*3/u L 4.2 9.1 14.1 High FINAL Marcelo [facility] ([facility]), [address], [address] [place] [address] 06/21 CBC w/ auto diff Cristobal # (ANC) 10*3/u L 1.78 5.38 10.63 High FINAL Marcelo [facility] ([facility]), [address], [address] [place] [address] 06/21 CBC w/ auto diff LY # 10*3/u L 1.32 3.57 2.09 FINAL Marcelo [facility] ([facility]), [address], [address] [place] [address] 06/21 CBC w/ auto diff MO # 10*3/u L 0.3 0.82 1.34 High FINAL Marcelo [facility] ([facility]), [address], [address] [place] [address] 06/21 CBC w/ auto diff EO # 10*3/u lL 0.04 0.54 0.03 Low FINAL Marcelo [facility] ([facility]), [address], [address] [place] [address] 06/21 CBC w/ auto diff BA # 10*3/u L 0.01 0.08 0.02 FINAL Marcelo [facility] ([facility]), [address], [address] [place] [address] 06/21 CBC w/ auto diff Cristobal % % 34.0 67.9 75.4 High FINAL Marcelo [facility] ([facility]), [address], [address] [place] [address] 06/21 CBC w/ auto diff LY % % 21.8 53.1 14.8 Low FINAL Marcelo [facility] ([facility]), [address], [address] [place] [address] 06/21 CBC w/ auto diff MO % % 5.3 12.2 9.5 FINAL Marcelo [facility] ([facility]), [address], [address] [place] [address] 06/21 CBC w/ auto diff EO % % 0.8 7.0 0.2 Low FINAL [facility] ([facility]), [address], [address] [place] [address] 06/21 CBC w/ auto diff BA % % 0.2 1.2 0.1 Low FINAL [facility] ([facility]), [address], [address] [place] [address] 06/21 CBC w/ auto diff RBC 10*6/u L 4.63 6.08 4.90 FINAL [facility] ([facility]), [address], [address] [place] [address] 06/21 CBC w/ auto diff HGB g/dL 13.7 17.5 16.0 FINAL [facility] ([facility]), [address], [address] [place] [address] 06/21 CBC w/ auto diff HCT % 40.1 51.0 47.5 FINAL [facility] ([facility]), [address], [address] [place] [address] 06/21 CBC w/ auto diff MCV fL 79.0 92.2 96.9 High FINAL [facility] ([facility]), [address], [address] [place] [address] 06/21 CBC w/ auto diff MCH pg 25.7 32.2 32.7 High FINAL [facility] ([facility]), [address], [address] [place] [address] 06/21 CBC w/ auto diff MCHC g/dL 32.3 36.5 33.7 FINAL [facility] ([facility]), [address], [address] [place] [address] 06/21 CBC w/ auto diff RDW-C V, % % 11.6 14.4 14.0 FINAL [facility] ([facility]), [address], [address] [place] [address] 06/21 CBC w/ auto diff PLT 10*3/u L 163.0 337.0 185.0 FINAL Marcelo Olson [facility] Jennifer ([facility]), [address], [address] [facility] [address] 07/23 Lab Repor t See manager coding d Medications Date Name Route Dose Frequency Instructions Start Date End Date Status Fill Status Indication 12/22 Sitagli ptin-Me tformin Oral 50 mg-1,00 0 mg orally 1.0 2 times per day active 12/22 Aspirin Oral orally 81.0 mg daily active 12/22 Insulin Detemir Subcuta neous 100 unit/mL subcutan eously 36.0 every evening active 12/22 Cyanoco balamin Oral orally 5000.0 mcg daily active 12/22 Elida 3-DHA-E PA-Fish Oil Oral Liquid 1,600 mg-500 [...] Print Location: Unknown Date/Time Printed: 10/19/2025 16:59 ([facility]) Patient: VALERIE PUENTES Sex: Male : [...] Selected Billing Code(s): PHLEBOTOMY THERAPEUTIC SEPARATE PROCEDURE (34379) Entered By Barbara Casas RN; Incident to Marcelo Olson MD * Nurse Note for: 09-NOV-19 [facility] Nurse Note Print Location: Unknown Date/Time Printed: 10/19/2025 16:59 ([facility]) Patient: VALERIE PUENTES Sex: Male : [...] Selected Billing Code(s): PHLEBOTOMY THERAPEUTIC SEPARATE PROCEDURE (38994) Entered By Ju Gupta RN; Incident to Marcelo Olson MD * Nurse Note for: 20-JUL-19 [facility] Nurse Note Print Location: Unknown Date/Time Printed: 10/19/2025 16:59 ([facility]) Patient: VALERIE PUENTES Sex: Male : [...] Selected Billing Code(s): PHLEBOTOMY THERAPEUTIC SEPARATE PROCEDURE (83644) Entered By Barbara Garcia RN; Incident to Marcelo Olson MD
--- OUTSIDE RECORDS SUMMARY | 2025-10-19 17:00 | XMS_ITS ---
Author Name Interface, [id number] lity Address [address] [place] [address] Organization [facility] Address [address] [place] [address] Allergies and Adverse Reactions Medication/Group Name Reaction [...] 9.1 8.8 FINAL Marcelo Olson B&Whole Blood [facility] ([facility]), [address], [address] [place] [address] 02/15 CBC w/ auto diff Cristobal # (ANC) 10*3/u L 1.78 5.38 4.12 FINAL Marcelo Olson B&Whole Blood [facility] ([facility]), [address] [place] [address] 02/15 CBC w/ auto diff LY # 10*3/u L 1.32 3.57 3.32 FINAL Marcelo Olson B&Whole Blood [facility] ([facility]), [address], [address] [place] [address] 02/15 CBC w/ auto diff MO # 10*3/u L 0.3 0.82 0.96 High FINAL Marcelo Olson B&Whole Blood [facility] ([facility]), [address], [address] [place] [address] 02/15 CBC w/ auto diff EO # 10*3/u lL 0.04 0.54 0.36 FINAL Marcelo Olson B&Whole Blood [facility] ([facility]), [address], [address] [place] [address] 02/15 CBC w/ auto diff BA # 10*3/u L 0.01 0.08 0.04 FINAL Marcelo Olson B&Whole Blood [facility] ([facility]), [address], [address] [place] [address] 02/15 CBC w/ auto diff Cristobal % % 34.0 67.9 46.8 FINAL Marcelo Olson B&Whole Blood [facility] ([facility]), [address], [address] [place] [address] 02/15 CBC w/ auto diff LY % % 21.8 53.1 37.7 FINAL Marcelo Olson B&Whole Blood [facility] (T), [address], Suite [place] [address] 02/15 CBC w/ auto diff MO % % 5.3 12.2 10.9 FINAL Marcelo Olson B&Whole Blood [facility] (T), [address], Suite [facility] [place] [facility] 02/15 CBC w/ auto diff EO % % 0.8 7.0 4.1 FINAL Marcelo Olson B&Whole Blood [facility] (T), [address], [address] [facility] [place] [facility] 02/15 CBC w/ auto diff BA % % 0.2 1.2 0.5 FINAL Marcelo Olson B&Whole Blood [facility] ([facility]), [address], Suite [facility] [place] [facility] 02/15 CBC w/ auto diff RBC 10*6/u L 4.63 6.08 5.33 FINAL Marcelo Olson B&Whole Blood [facility] ([facility]), [address], [address] [facility] [place] [facility] 02/15 CBC w/ auto diff HGB g/dL 13.7 17.5 17.4 FINAL Marcelo Olson B&Whole Blood [facility] (T), [address], [address] [place] [address] 02/15 CBC w/ auto diff HCT % 40.1 51.0 50.4 FINAL Marcelo Olson B&Whole Blood [facility] (T), [address], [address] [facility] [place] [facility] 02/15 CBC w/ auto diff MCV fL 79.0 92.2 94.6 High FINAL Marcelo Olson B&Whole Blood [facility] ([facility]), [address], [address] [facility] [place] [facility] 02/15 CBC w/ auto diff MCH pg 25.7 32.2 32.6 High FINAL Marcelo Olson B&Whole Blood [facility] (T), [address], [address] [facility] [place] [facility] 02/15 CBC w/ auto diff MCHC g/dL 32.3 36.5 34.5 FINAL Marcelo Mahmoods B&Whole Blood [facility] (T), [address], [address] [facility] [place] [address] 02/15 CBC w/ auto diff RDW-C V, % % 11.6 14.4 14.0 FINAL Marcelo Mahmoods B&Whole Blood [facility] (T), [address], [address] [place] [address] 02/15 CBC w/ auto diff PLT 10*3/u L 163.0 337.0 172.0 FINAL Marcelo Mahmoods B&Whole Blood [facility] (T), [address], [address] [place] [address] 05/31 CBC w/ auto diff WBC 10*3/u L 4.2 9.1 10.4 High FINAL Marcelo Herms B&Whole Blood [facility] (T), [address], [address] [place] [address] 05/31 CBC w/ auto diff Cristobal # (ANC) 10*3/u L 1.78 5.38 5.26 FINAL Marcelo Mahmoods B&Whole Blood [facility] (T), [address], [address] [place] [address] 05/31 CBC w/ auto diff LY # 10*3/u L 1.32 3.57 3.84 High FINAL Marcelo Mahmoods B&Whole Blood [facility] (T), [address], [address] [place] [address] 05/31 CBC w/ auto diff MO # 10*3/u L 0.3 0.82 0.94 High FINAL Marcelo Herms B&Whole Blood [facility] (T), [address], [address] [place] [address] 05/31 CBC w/ auto diff EO # 10*3/u lL 0.04 0.54 0.30 FINAL Marcelo Herms B&Whole Blood [facility] (T), [address], [address] [place] [address] 05/31 CBC w/ auto diff BA # 10*3/u L 0.01 0.08 0.03 FINAL Marcelo Herms B&Whole Blood [facility] (T), [address], [address] [place] [address] 05/31 CBC w/ auto diff Cristobal % % 34.0 67.9 50.7 FINAL Marcelo Herms B&Whole Blood [facility] ([facility]), [address], [place] [address] 05/31 CBC w/ auto diff LY % % 21.8 53.1 37.0 FINAL Marcelo Olson B&Whole Blood [facility] ([facility]), [address], [address] [facility] [place] [facility] 05/31 CBC w/ auto diff MO % % 5.3 12.2 9.1 FINAL Marcelo Olson B&Whole Blood [facility] ([facility]), [address], [address] [facility] [place] [facility] 05/31 CBC w/ auto diff EO % % 0.8 7.0 2.9 FINAL Marcelo Olson B&Whole Blood [facility] ([facility]), [address], [address] [place] [address] 05/31 CBC w/ auto diff BA % % 0.2 1.2 0.3 FINAL Marcelo Olson B&Whole Blood [facility] (T), [address], [address] [place] [address] 05/31 CBC w/ auto diff RBC 10*6/u L 4.63 6.08 5.01 FINAL Marcelo Olson B&Whole Blood [facility] (T), [address], [address] [place] [address] 05/31 CBC w/ auto diff HGB g/dL 13.7 17.5 16.4 FINAL Marcelo Olson B&Whole Blood [facility] ([facility]), [address], [address] [place] [address] 05/31 CBC w/ auto diff HCT % 40.1 51.0 47.5 FINAL Marcelo Olson B&Whole Blood [facility] ([facility]), [address], [address] [place] [address] 05/31 CBC w/ auto diff MCV fL 79.0 92.2 94.8 High FINAL Marcelo Mahmoods B&Whole Blood [facility] ([facility]), [address], [address] [place] [address] 05/31 CBC w/ auto diff MCH pg 25.7 32.2 32.7 High FINAL Marcelo Mahmoods B&Whole Blood [facility] ([facility]), [address], [address] [place] [address] 05/31 CBC w/ auto diff MCHC g/dL 32.3 36.5 34.5 FINAL [facility] B&Whole Blood [facility] (T), [address], [address] [place] [address] 05/31 CBC w/ auto diff RDW-C V, % % 11.6 14.4 13.8 FINAL [facility] B&Whole Blood [facility] (T), [address], [address] [place] [address] 05/31 CBC w/ auto diff PLT 10*3/u L 163.0 337.0 161.0 Low FINAL [facility] B&Whole Blood [facility] ([facility]), [address], [address] [place] [address] 06/21 CBC w/ auto diff WBC 10*3/u L 4.2 9.1 14.1 High FINAL [facility] ([facility]), [address], [address] [place] [address] 06/21 CBC w/ auto diff Cristobal # (ANC) 10*3/u L 1.78 5.38 10.63 High FINAL [facility] ([facility]), [address], [address] [place] [address] 06/21 CBC w/ auto diff LY # 10*3/u L 1.32 3.57 2.09 FINAL [facility] ([facility]), [address], [address] [place] [address] 06/21 CBC w/ auto diff MO # 10*3/u L 0.3 0.82 1.34 High FINAL [facility] ([facility]), [address], [address] [place] [address] 06/21 CBC w/ auto diff EO # 10*3/u lL 0.04 0.54 0.03 Low FINAL [facility] ([facility]), [address], [address] [place] [address] 06/21 CBC w/ auto diff BA # 10*3/u L 0.01 0.08 0.02 FINAL [facility] ([facility]), [address], [address] [place] [address] 06/21 CBC w/ auto diff Cristobal % % 34.0 67.9 75.4 High FINAL [facility] ([facility]), [address], [address] [place] [address] 06/21 CBC w/ auto diff LY % % 21.8 53.1 14.8 Low FINAL [facility] ([facility]), [address], [address] [place] [address] 06/21 CBC w/ auto diff MO % % 5.3 12.2 9.5 FINAL [facility] ([facility]), [address], [address] [place] [address] 06/21 CBC w/ auto diff EO % % 0.8 7.0 0.2 Low FINAL [facility] ([facility]), [address], [address] [place] [address] 06/21 CBC w/ auto diff BA % % 0.2 1.2 0.1 Low FINAL [facility] ([facility]), [address], [address] [place] [address] 06/21 CBC w/ auto diff RBC 10*6/u L 4.63 6.08 4.90 FINAL [facility] ([facility]), [address], [address] [place] [address] 06/21 CBC w/ auto diff HGB g/dL 13.7 17.5 16.0 FINAL [facility] ([facility]), [address], [address] [place] [address] 06/21 CBC w/ auto diff HCT % 40.1 51.0 47.5 FINAL [facility] ([facility]), [address], [address] [place] [address] 06/21 CBC w/ auto diff MCV fL 79.0 92.2 96.9 High FINAL [facility] ([facility]), [address], [address] [place] [address] 06/21 CBC w/ auto diff MCH pg 25.7 32.2 32.7 High FINAL [facility] ([facility]), [address], [address] [facility] [address] 06/21 CBC w/ auto diff MCHC g/dL 32.3 36.5 33.7 FINAL [facility] ([facility]), [address], [address] [facility] [address] 06/21 CBC w/ auto diff RDW-C V, % % 11.6 14.4 14.0 FINAL [facility] ([facility]), [address], [address] [facility] [address] 06/21 CBC w/ auto diff PLT 10*3/u L 163.0 337.0 185.0 FINAL [facility] ([facility]), [address], [address] [facility] [address] 07/23 Lab Repor t See single stayer operator d Medications Date Name Route Dose Frequency Instructions Start Date End Date Status Fill Status Indication 12/22 Sitagli ptin-Me tformin Oral 50 mg-1,00 0 mg orally 1.0 2 times per day active 12/22 Aspirin Oral orally 81.0 mg daily active 12/22 Insulin Detemir Subcuta neous 100 unit/mL subcutan eously 36.0 every evening active 12/22 Cyanoco balamin Oral orally 5000.0 mcg daily active 12/22 [place] 3-DHA-E PA-Fish Oil Oral Liquid 1,600 mg-500 [...] Note Print Location: Unknown Date/Time Printed: 10/19/2025 17:00 ([facility]) Patient: VALERIE PUENTES Sex: Male : 1960 [...] Selected Billing Code(s): PHLEBOTOMY THERAPEUTIC SEPARATE PROCEDURE (81543) Entered By Barbara Casas RN; Incident to Marcelo Olson MD
--- OUTSIDE RECORDS SUMMARY | 2025-10-19 17:00 | XMS_ITS ---
Author Name Interface, [id number] lity Address [address] [place] [address] Organization [facility] Address [address] [place] [address] Allergies and Adverse Reactions Medication/Group Name Reaction [...] 9.1 8.8 FINAL Marcelo Olson B&Whole Blood [facility] ([facility]), [address], [address] [place] [address] 02/15 CBC w/ auto diff Cristobal # (ANC) 10*3/u L 1.78 5.38 4.12 FINAL Marcelo Olson B&Whole Blood [facility] ([facility]), [address], [address] [place] [address] 02/15 CBC w/ auto diff LY # 10*3/u L 1.32 3.57 3.32 FINAL Marcelo Olson B&Whole Blood [facility] ([facility]), [address], [address] [place] [address] 02/15 CBC w/ auto diff MO # 10*3/u L 0.3 0.82 0.96 High FINAL Marcelo Olson B&Whole Blood [facility] ([facility]), [address], [address] [place] [address] 02/15 CBC w/ auto diff EO # 10*3/u lL 0.04 0.54 0.36 FINAL Marcelo Olson B&Whole Blood [facility] ([facility]), [address], [address] [place] [address] 02/15 CBC w/ auto diff BA # 10*3/u L 0.01 0.08 0.04 FINAL Marcelo Olson B&Whole Blood [facility] ([facility]), [address], [address] [place] [address] 02/15 CBC w/ auto diff Cristobal % % 34.0 67.9 46.8 FINAL Marcelo Olson B&Whole Blood [facility] ([facility]), [address], [address] [place] [address] 02/15 CBC w/ auto diff LY % % 21.8 53.1 37.7 FINAL Marcelo Olson B&Whole Blood [facility] (T), [address], [address] [facility] [address] 02/15 CBC w/ auto diff MO % % 5.3 12.2 10.9 FINAL Marcelo Olson B&Whole Blood [facility] (T), [address], [address] [facility] [place] [facility] 02/15 CBC w/ auto diff EO % % 0.8 7.0 4.1 FINAL Marcelo Olson B&Whole Blood [facility] (T), [address], [address] [facility] [place] [facility] 02/15 CBC w/ auto diff BA % % 0.2 1.2 0.5 FINAL Marcelo Olson B&Whole Blood [facility] ([facility]), [address], [address] [facility] [place] [facility] 02/15 CBC w/ auto diff RBC 10*6/u L 4.63 6.08 5.33 FINAL Marcelo Olson B&Whole Blood [facility] ([facility]), [address], [address] [facility] [place] [facility] 02/15 CBC w/ auto diff HGB g/dL 13.7 17.5 17.4 FINAL Marcelo Olson B&Whole Blood [facility] (T), [address], [address] [place] [address] 02/15 CBC w/ auto diff HCT % 40.1 51.0 50.4 FINAL Marcelo Olson B&Whole Blood [facility] (T), [address], [address] [facility] [place] [facility] 02/15 CBC w/ auto diff MCV fL 79.0 92.2 94.6 High FINAL Marcelo Olson B&Whole Blood [facility] ([facility]), [address], [address] [facility] [place] [facility] 02/15 CBC w/ auto diff MCH pg 25.7 32.2 32.6 High FINAL Marcelo Olson B&Whole Blood [facility] (T), [address], [address] [facility] [place] [facility] 02/15 CBC w/ auto diff MCHC g/dL 32.3 36.5 34.5 FINAL Marcelo Mahmoods B&Whole Blood [facility] (T), [address], [address] [facility] [place] [address] 02/15 CBC w/ auto diff RDW-C V, % % 11.6 14.4 14.0 FINAL Marcelo Mahmoods B&Whole Blood [facility] (T), [address], [address] [place] [address] 02/15 CBC w/ auto diff PLT 10*3/u L 163.0 337.0 172.0 FINAL Marcelo Mahmoods B&Whole Blood [facility] (T), [address], [address] [place] [address] 05/31 CBC w/ auto diff WBC 10*3/u L 4.2 9.1 10.4 High FINAL Marcelo Herms B&Whole Blood [facility] (T), [address], [address] [place] [address] 05/31 CBC w/ auto diff Cristobal # (ANC) 10*3/u L 1.78 5.38 5.26 FINAL Marcelo Mahmoods B&Whole Blood [facility] (T), [address], [address] [place] [address] 05/31 CBC w/ auto diff LY # 10*3/u L 1.32 3.57 3.84 High FINAL Marcelo Mahmoods B&Whole Blood [facility] (T), [address], [address] [place] [address] 05/31 CBC w/ auto diff MO # 10*3/u L 0.3 0.82 0.94 High FINAL Marcelo Herms B&Whole Blood [facility] (T), [address], [address] [place] [address] 05/31 CBC w/ auto diff EO # 10*3/u lL 0.04 0.54 0.30 FINAL Marcelo Herms B&Whole Blood [facility] (T), [address], [address] [place] [address] 05/31 CBC w/ auto diff BA # 10*3/u L 0.01 0.08 0.03 FINAL Marcelo Herms B&Whole Blood [facility] (T), [address], [address] [place] [address] 05/31 CBC w/ auto diff Cristobal % % 34.0 67.9 50.7 FINAL Marcelo Herms B&Whole Blood [facility] ([facility]), [address], [address] [facility] [place] [address] 05/31 CBC w/ auto diff LY % % 21.8 53.1 37.0 FINAL Marcelo Olson B&Whole Blood [facility] ([facility]), [address], [address] [facility] [place] [facility] 05/31 CBC w/ auto diff MO % % 5.3 12.2 9.1 FINAL Marcelo Olson B&Whole Blood [facility] ([facility]), [address], [address] [facility] [place] [facility] 05/31 CBC w/ auto diff EO % % 0.8 7.0 2.9 FINAL Marcelo Olson B&Whole Blood [facility] ([facility]), [address], [address] [place] [address] 05/31 CBC w/ auto diff BA % % 0.2 1.2 0.3 FINAL Marcelo Olson B&Whole Blood [facility] (T), [address], [address] [place] [address] 05/31 CBC w/ auto diff RBC 10*6/u L 4.63 6.08 5.01 FINAL Marcelo Olson B&Whole Blood [facility] (T), [address], [address] [place] [address] 05/31 CBC w/ auto diff HGB g/dL 13.7 17.5 16.4 FINAL Marcelo Olson B&Whole Blood [facility] ([facility]), [address], [address] [place] [address] 05/31 CBC w/ auto diff HCT % 40.1 51.0 47.5 FINAL Marcelo Olson B&Whole Blood [facility] ([facility]), [address], [address] [place] [address] 05/31 CBC w/ auto diff MCV fL 79.0 92.2 94.8 High FINAL Marcelo Mahmoods B&Whole Blood [facility] ([facility]), [address], [address] [place] [address] 05/31 CBC w/ auto diff MCH pg 25.7 32.2 32.7 High FINAL Marcelo Mahmoods B&Whole Blood [facility] ([facility]), [address], [address] [place] [address] 05/31 CBC w/ auto diff MCHC g/dL 32.3 36.5 34.5 FINAL [facility] B&Whole Blood [facility] (T), [address], [address] [place] [address] 05/31 CBC w/ auto diff RDW-C V, % % 11.6 14.4 13.8 FINAL [facility] B&Whole Blood [facility] (T), [address], [address] [place] [address] 05/31 CBC w/ auto diff PLT 10*3/u L 163.0 337.0 161.0 Low FINAL [facility] B&Whole Blood [facility] ([facility]), [address], [address] [place] [address] 06/21 CBC w/ auto diff WBC 10*3/u L 4.2 9.1 14.1 High FINAL [facility] ([facility]), [address], [address] [place] [address] 06/21 CBC w/ auto diff Cristobal # (ANC) 10*3/u L 1.78 5.38 10.63 High FINAL [facility] ([facility]), [address], [address] [place] [address] 06/21 CBC w/ auto diff LY # 10*3/u L 1.32 3.57 2.09 FINAL [facility] ([facility]), [address], [address] [place] [address] 06/21 CBC w/ auto diff MO # 10*3/u L 0.3 0.82 1.34 High FINAL [facility] ([facility]), [address], [address] [place] [address] 06/21 CBC w/ auto diff EO # 10*3/u lL 0.04 0.54 0.03 Low FINAL [facility] ([facility]), [address], [address] [place] [address] 06/21 CBC w/ auto diff BA # 10*3/u L 0.01 0.08 0.02 FINAL [facility] ([facility]), [address], [address] [place] [address] 06/21 CBC w/ auto diff Cristobal % % 34.0 67.9 75.4 High FINAL [facility] ([facility]), [address], [address] [place] [address] 06/21 CBC w/ auto diff LY % % 21.8 53.1 14.8 Low FINAL [facility] ([facility]), [address], [address] [place] [address] 06/21 CBC w/ auto diff MO % % 5.3 12.2 9.5 FINAL [facility] ([facility]), [address], [address] [place] [address] 06/21 CBC w/ auto diff EO % % 0.8 7.0 0.2 Low FINAL [facility] ([facility]), [address], [address] [place] [address] 06/21 CBC w/ auto diff BA % % 0.2 1.2 0.1 Low FINAL [facility] ([facility]), [address], [address] [place] [address] 06/21 CBC w/ auto diff RBC 10*6/u L 4.63 6.08 4.90 FINAL [facility] ([facility]), [address], [address] [place] [address] 06/21 CBC w/ auto diff HGB g/dL 13.7 17.5 16.0 FINAL [facility] ([facility]), [address], [address] [place] [address] 06/21 CBC w/ auto diff HCT % 40.1 51.0 47.5 FINAL [facility] ([facility]), [address], [address] [place] [address] 06/21 CBC w/ auto diff MCV fL 79.0 92.2 96.9 High FINAL [facility] ([facility]), [address], [address] [place] [address] 06/21 CBC w/ auto diff MCH pg 25.7 32.2 32.7 High FINAL [facility] ([facility]), [address], [address] [facility] [address] 06/21 CBC w/ auto diff MCHC g/dL 32.3 36.5 33.7 FINAL [facility] ([facility]), [address], [address] [facility] [address] 06/21 CBC w/ auto diff RDW-C V, % % 11.6 14.4 14.0 FINAL [facility] ([facility]), [address], [address] [facility] [address] 06/21 CBC w/ auto diff PLT 10*3/u L 163.0 337.0 185.0 FINAL [facility] ([facility]), [address], [address] [facility] [address] 07/23 Lab Repor t See vegetable specker d Medications Date Name Route Dose Frequency Instructions Start Date End Date Status Fill Status Indication 12/22 Sitagli ptin-Me tformin Oral 50 mg-1,00 0 mg orally 1.0 2 times per day active 12/22 Aspirin Oral orally 81.0 mg daily active 12/22 Insulin Detemir Subcuta neous 100 unit/mL subcutan eously 36.0 every evening active 12/22 Cyanoco balamin Oral orally 5000.0 mcg daily active 12/22 [place] 3-DHA-E PA-Fish Oil Oral Liquid 1,600 mg-500 [...] Print Location: Unknown Date/Time Printed: 10/19/2025 17:00 ([facility]) Patient: VALERIE PUENTES Sex: Male : [...] Selected Billing Code(s): PHLEBOTOMY THERAPEUTIC SEPARATE PROCEDURE (99618) Entered By Barbara Casas RN; Incident to Marcelo Olson MD
--- OUTSIDE RECORDS SUMMARY | 2025-10-19 17:00 | XMS_ITS ---
Author Name Interface, [id number] lity Address [address] [place] [address] Organization [facility] Address [address] [place] [address] Allergies and Adverse Reactions Medication/Group Name Reaction [...] 9.1 8.8 FINAL Marcelo Olson B&Whole Blood [facility] ([facility]), [address], [address] [place] [address] 02/15 CBC w/ auto diff Cristobal # (ANC) 10*3/u L 1.78 5.38 4.12 FINAL Marcelo Olson B&Whole Blood [facility] ([facility]), [address], [address] [place] [address] 02/15 CBC w/ auto diff LY # 10*3/u L 1.32 3.57 3.32 FINAL Marcelo Olson B&Whole Blood [facility] ([facility]), [address], [address] [place] [address] 02/15 CBC w/ auto diff MO # 10*3/u L 0.3 0.82 0.96 High FINAL Marcelo Olson B&Whole Blood [facility] ([facility]), [address], [address] [place] [address] 02/15 CBC w/ auto diff EO # 10*3/u lL 0.04 0.54 0.36 FINAL Marcelo Olson B&Whole Blood [facility] ([facility]), [address], [address] [place] [address] 02/15 CBC w/ auto diff BA # 10*3/u L 0.01 0.08 0.04 FINAL Marcelo Olson B&Whole Blood [facility] ([facility]), [address], [address] [place] [address] 02/15 CBC w/ auto diff Cristobal % % 34.0 67.9 46.8 FINAL Marcelo Olson B&Whole Blood [facility] ([facility]), [address], [address] [place] [address] 02/15 CBC w/ auto diff LY % % 21.8 53.1 37.7 FINAL Marcelo Mahmoods B&Whole Blood [facility] ([facility]), [address], Suite [facility] [place] [address] 02/15 CBC w/ auto diff MO % % 5.3 12.2 10.9 FINAL Marcelo Mahmoods B&Whole Blood [facility] ([facility]), [address], [address] [facility] [place] [address] 02/15 CBC w/ auto diff EO % % 0.8 7.0 4.1 FINAL Marcelo Olson B&Whole Blood [facility] ([facility]), [address], [address] [facility] [place] [facility] 02/15 CBC w/ auto diff BA % % 0.2 1.2 0.5 FINAL Marcelo Mahmoods B&Whole Blood [facility] (T), [address], [address] [facility] [place] [facility] 02/15 CBC w/ auto diff RBC 10*6/u L 4.63 6.08 5.33 FINAL Marcelo Mahmoods B&Whole Blood [facility] (T), [address], [address] [facility] [place] [facility] 02/15 CBC w/ auto diff HGB g/dL 13.7 17.5 17.4 FINAL Marcelo Olson B&Whole Blood [facility] (T), [address], [address] [facility] [place] [facility] 02/15 CBC w/ auto diff HCT % 40.1 51.0 50.4 FINAL Marcelo Mahmoods B&Whole Blood [facility] (T), [address], [address] [facility] [place] [facility] 02/15 CBC w/ auto diff MCV fL 79.0 92.2 94.6 High FINAL Marcelo Mahmoods B&Whole Blood [facility] ([facility]), [address], [address] [facility] [place] [address] 02/15 CBC w/ auto diff MCH pg 25.7 32.2 32.6 High FINAL Marcelo Mahmoods B&Whole Blood [facility] ([facility]), [address], [address] [facility] [place] [address] 02/15 CBC w/ auto diff MCHC g/dL 32.3 36.5 34.5 FINAL Marcelo Mahmoods B&Whole Blood [facility] ([facility]), [address], [address] [place] [address] 02/15 CBC w/ auto diff RDW-C V, % % 11.6 14.4 14.0 FINAL Marcelo Mahmoods B&Whole Blood [facility] (T), [address], [address] [place] [address] 02/15 CBC w/ auto diff PLT 10*3/u L 163.0 337.0 172.0 FINAL Marcelo Mahmoods B&Whole Blood [facility] ([facility]), [address], [address] [place] [address] 05/31 CBC w/ auto diff WBC 10*3/u L 4.2 9.1 10.4 High FINAL Marcelo Mahmoods B&Whole Blood [facility] ([facility]), [address], [address] [place] [address] 05/31 CBC w/ auto diff Cristobal # (ANC) 10*3/u L 1.78 5.38 5.26 FINAL Marcelo Mahmoods B&Whole Blood [facility] ([facility]), [address], [address] [place] [address] 05/31 CBC w/ auto diff LY # 10*3/u L 1.32 3.57 3.84 High FINAL Marcelo Mahmoods B&Whole Blood [facility] ([facility]), [address], [address] [place] [address] 05/31 CBC w/ auto diff MO # 10*3/u L 0.3 0.82 0.94 High FINAL Marcelo Mahmoods B&Whole Blood [facility] ([facility]), [address], [address] [place] [address] 05/31 CBC w/ auto diff EO # 10*3/u lL 0.04 0.54 0.30 FINAL Marcelo Mahmoods B&Whole Blood [facility] ([facility]), [address], [address] [place] [address] 05/31 CBC w/ auto diff BA # 10*3/u L 0.01 0.08 0.03 FINAL Marcelo Herms B&Whole Blood [facility] ([facility]), [address], [address] [place] [address] 05/31 CBC w/ auto diff Cristobal % % 34.0 67.9 50.7 FINAL Marcelo Herms B&Whole Blood [facility] (T), [address], [address] [facility] [place] [facility] 05/31 CBC w/ auto diff LY % % 21.8 53.1 37.0 FINAL Marcelo Olson B&Whole Blood [facility] (T), [address], [address] [place] [address] 05/31 CBC w/ auto diff MO % % 5.3 12.2 9.1 FINAL Marcelo Olson B&Whole Blood [facility] (T), [address], [address] [place] [address] 05/31 CBC w/ auto diff EO % % 0.8 7.0 2.9 FINAL Marcelo Olson B&Whole Blood [facility] (T), [address], [address] [place] [address] 05/31 CBC w/ auto diff BA % % 0.2 1.2 0.3 FINAL Marcelo Olson B&Whole Blood [facility] (T), [address], [address] [place] [address] 05/31 CBC w/ auto diff RBC 10*6/u L 4.63 6.08 5.01 FINAL Marcelo Olson B&Whole Blood [facility] (T), [address], [address] [place] [address] 05/31 CBC w/ auto diff HGB g/dL 13.7 17.5 16.4 FINAL Marcelo Olson B&Whole Blood [facility] (T), [address], [address] [place] [address] 05/31 CBC w/ auto diff HCT % 40.1 51.0 47.5 FINAL Marcelo Olson B&Whole Blood [facility] (T), [address], [address] [place] [address] 05/31 CBC w/ auto diff MCV fL 79.0 92.2 94.8 High FINAL Marcelo Olson B&Whole Blood [facility] (T), [address], [address] [place] [address] 05/31 CBC w/ auto diff MCH pg 25.7 32.2 32.7 High FINAL Marcelo Olson B&Whole Blood [facility] (T), [address], [address] [place] [address] 05/31 CBC w/ auto diff MCHC g/dL 32.3 36.5 34.5 FINAL Marcelo [facility] B&Whole Blood [facility] ([facility]), [address], [address] [place] [address] 05/31 CBC w/ auto diff RDW-C V, % % 11.6 14.4 13.8 FINAL Marcelo [facility] B&Whole Blood [facility] ([facility]), [address], [address] [place] [address] 05/31 CBC w/ auto diff PLT 10*3/u L 163.0 337.0 161.0 Low FINAL [facility] B&Whole Blood [facility] ([facility]), [address], [address] [place] [address] 06/21 CBC w/ auto diff WBC 10*3/u L 4.2 9.1 14.1 High FINAL [facility] (T), [address], [address] [place] [address] 06/21 CBC w/ auto diff Cristobal # (ANC) 10*3/u L 1.78 5.38 10.63 High FINAL [facility] (T), [address], [address] [place] [address] 06/21 CBC w/ auto diff LY # 10*3/u L 1.32 3.57 2.09 FINAL [facility] (T), [address], [address] [place], [place] [id number] 06/21 CBC w/ auto diff MO # 10*3/u L 0.3 0.82 1.34 High FINAL [facility] ([facility]), [address], [address] [place], [place] [id number] 06/21 CBC w/ auto diff EO # 10*3/u lL 0.04 0.54 0.03 Low FINAL [facility] ([facility]), [address], [address] [facility] [address] 06/21 CBC w/ auto diff BA # 10*3/u L 0.01 0.08 0.02 FINAL [facility] ([facility]), [address], [address] [place] [address] 06/21 CBC w/ auto diff Cristobal % % 34.0 67.9 75.4 High FINAL Marcelo [facility] ([facility]), [address], [address] [place] [address] 06/21 CBC w/ auto diff LY % % 21.8 53.1 14.8 Low FINAL Marcelo [facility] ([facility]), [address], [address] [place] [address] 06/21 CBC w/ auto diff MO % % 5.3 12.2 9.5 FINAL Marcelo [facility] ([facility]), [address], [address] [place] [address] 06/21 CBC w/ auto diff EO % % 0.8 7.0 0.2 Low FINAL Marcelo [facility] ([facility]), [address], [address] [place] [address] 06/21 CBC w/ auto diff BA % % 0.2 1.2 0.1 Low FINAL Marcelo [facility] ([facility]), [address], [address] [place] [address] 06/21 CBC w/ auto diff RBC 10*6/u L 4.63 6.08 4.90 FINAL Marcelo [facility] ([facility]), [address], [address] [place] [address] 06/21 CBC w/ auto diff HGB g/dL 13.7 17.5 16.0 FINAL Marcelo [facility] ([facility]), [address], [address] [place] [address] 06/21 CBC w/ auto diff HCT % 40.1 51.0 47.5 FINAL Marcelo [facility] ([facility]), [address], [address] [place] [address] 06/21 CBC w/ auto diff MCV fL 79.0 92.2 96.9 High FINAL Marcelo [facility] ([facility]), [address], [address] [place] [address] 06/21 CBC w/ auto diff MCH pg 25.7 32.2 32.7 High FINAL [facility] ([facility]), [address], [address] [facility] [address] 06/21 CBC w/ auto diff MCHC g/dL 32.3 36.5 33.7 FINAL [facility] (T), [address], [address] [facility] [address] 06/21 CBC w/ auto diff RDW-C V, % % 11.6 14.4 14.0 FINAL [facility] (T), [address], [address] [facility] [address] 06/21 CBC w/ auto diff PLT 10*3/u L 163.0 337.0 185.0 FINAL [facility] ([facility]), [address], [address] [facility] [address] 07/23 Lab Repor t See taper operator d Medications Date Name Route Dose [...] Oral orally 5000.0 mcg daily active 12/22 [place] 3-DHA-E PA-Fish Oil Oral Liquid 1,600 mg-500 [...] Print Location: Unknown Date/Time Printed: 10/19/2025 17:00 ([facility]) Patient: VALERIE PUENTES Sex: Male : 1960 [...] Selected Billing Code(s): PHLEBOTOMY THERAPEUTIC SEPARATE PROCEDURE (34663) Entered By Barbara Casas RN; Incident to Marcelo Olson MD
--- OUTSIDE RECORDS SUMMARY | 2025-10-19 17:00 | XMS_ITS | CCD ---
Author Name Interface, [id number] lity Address [address] [id number] Organization [facility] Address [address] [place] [id number] Care Team Providers Care Government Services Professional Name Role Phone Whitney HUGHES, Marcelo Munguia [...] Oral orally 25.0 mg daily active 12/22 [place] 3-DHA-E PA-Fish Oil Oral Liquid 1,600 mg-500 [...]
--- OUTSIDE RECORDS SUMMARY | 2025-10-19 17:00 | XMS_ITS ---
Author Name Interface, [id number] lity Address [address] [place] [address] Organization [facility] Address [address] [place] [address] Allergies and Adverse Reactions Medication/Group Name Reaction [...] FINAL Marcelo Olson B&Whole Blood [facility] ([facility]), [address], [address] [place] [address] 02/15 CBC w/ auto diff Cristobal # (ANC) 10*3/u L 1.78 5.38 4.12 FINAL Marcelo Olson B&Whole Blood [facility] ([facility]), [address], [address] [place] [address] 02/15 CBC w/ auto diff LY # 10*3/u L 1.32 3.57 3.32 FINAL Marcelo Olson B&Whole Blood [facility] ([facility]), [address], [address] [place] [address] 02/15 CBC w/ auto diff MO # 10*3/u L 0.3 0.82 0.96 High FINAL Marcelo Olson B&Whole Blood [facility] ([facility]), [address], [address] [place] [address] 02/15 CBC w/ auto diff EO # 10*3/u lL 0.04 0.54 0.36 FINAL Marcelo Olson B&Whole Blood [facility] ([facility]), [address], [address] [place] [address] 02/15 CBC w/ auto diff BA # 10*3/u L 0.01 0.08 0.04 FINAL Marcelo Olson B&Whole Blood [facility] ([facility]), [address], [address] [place] [address] 02/15 CBC w/ auto diff Cristobal % % 34.0 67.9 46.8 FINAL Marcelo Olson B&Whole Blood [facility] ([facility]), [address], [address] [place] [address] 02/15 CBC w/ auto diff LY % % 21.8 53.1 37.7 FINAL Marcelo Olson B&Whole Blood [facility] (T), [address], Suite [facility] [place] [address] 02/15 CBC w/ auto diff MO % % 5.3 12.2 10.9 FINAL Marcelo Olson B&Whole Blood [facility] (T), [address], Suite [facility] [place] [facility] 02/15 CBC w/ auto diff EO % % 0.8 7.0 4.1 FINAL Marcelo Olson B&Whole Blood [facility] (T), [address], Suite [facility] [place] [facility] 02/15 CBC w/ auto diff BA % % 0.2 1.2 0.5 FINAL Marcelo Olson B&Whole Blood [facility] ([facility]), [address], Suite [facility] [place] [facility] 02/15 CBC w/ auto diff RBC 10*6/u L 4.63 6.08 5.33 FINAL Marcelo Olson B&Whole Blood [facility] ([facility]), [address], Suite [facility] [place] [facility] 02/15 CBC w/ auto diff HGB g/dL 13.7 17.5 17.4 FINAL Marcelo Olson B&Whole Blood [facility] (T), [address], [address] [place] [address] 02/15 CBC w/ auto diff HCT % 40.1 51.0 50.4 FINAL Marcelo Olson B&Whole Blood [facility] (T), [address], Suite [facility] [place] [facility] 02/15 CBC w/ auto diff MCV fL 79.0 92.2 94.6 High FINAL Marcelo Olson B&Whole Blood [facility] ([facility]), [address], Suite [facility] [place] [facility] 02/15 CBC w/ auto diff MCH pg 25.7 32.2 32.6 High FINAL Marcelo Olson B&Whole Blood [facility] (T), [address], Suite [facility] [place] [facility] 02/15 CBC w/ auto diff MCHC g/dL 32.3 36.5 34.5 FINAL Marcelo Mahmoods B&Whole Blood [facility] (T), [address], Suite [facility] [place] [address] 02/15 CBC w/ auto diff RDW-C V, % % 11.6 14.4 14.0 FINAL Marcelo Mahmoods B&Whole Blood [facility] (T), [address], [address] [place] [address] 02/15 CBC w/ auto diff PLT 10*3/u L 163.0 337.0 172.0 FINAL Marcelo Mahmoods B&Whole Blood [facility] (T), [address], [address] [place] [address] 05/31 CBC w/ auto diff WBC 10*3/u L 4.2 9.1 10.4 High FINAL Marcelo Herms B&Whole Blood [facility] (T), [address], [address] [place] [address] 05/31 CBC w/ auto diff Cristobal # (ANC) 10*3/u L 1.78 5.38 5.26 FINAL Marcelo Mahmoods B&Whole Blood [facility] (T), [address], [address] [place] [address] 05/31 CBC w/ auto diff LY # 10*3/u L 1.32 3.57 3.84 High FINAL Marcelo Mahmoods B&Whole Blood [facility] (T), [address], [address] [place] [address] 05/31 CBC w/ auto diff MO # 10*3/u L 0.3 0.82 0.94 High FINAL Marcelo Herms B&Whole Blood [facility] (T), [address], [address] [place] [address] 05/31 CBC w/ auto diff EO # 10*3/u lL 0.04 0.54 0.30 FINAL Marcelo Herms B&Whole Blood [facility] (T), [address], [address] [place] [address] 05/31 CBC w/ auto diff BA # 10*3/u L 0.01 0.08 0.03 FINAL Marcelo Herms B&Whole Blood [facility] (T), [address], [address] [place] [address] 05/31 CBC w/ auto diff Cristobal % % 34.0 67.9 50.7 FINAL Marcelo Herms B&Whole Blood [facility] ([facility]), [address], Suite [facility] [place] [address] 05/31 CBC w/ auto diff LY % % 21.8 53.1 37.0 FINAL Marcelo Olson B&Whole Blood [facility] ([facility]), [address], Suite [facility] [place] [facility] 05/31 CBC w/ auto diff MO % % 5.3 12.2 9.1 FINAL Marcelo Olson B&Whole Blood [facility] ([facility]), [address], [address] [facility] [place] [facility] 05/31 CBC w/ auto diff EO % % 0.8 7.0 2.9 FINAL Marcelo Olson B&Whole Blood [facility] ([facility]), [address], [address] [place] [address] 05/31 CBC w/ auto diff BA % % 0.2 1.2 0.3 FINAL Marcelo Olson B&Whole Blood [facility] (T), [address], [address] [place] [address] 05/31 CBC w/ auto diff RBC 10*6/u L 4.63 6.08 5.01 FINAL Marcelo Olson B&Whole Blood [facility] (T), [address], [address] [place] [address] 05/31 CBC w/ auto diff HGB g/dL 13.7 17.5 16.4 FINAL Marcelo Olson B&Whole Blood [facility] ([facility]), [address], [address] [place] [address] 05/31 CBC w/ auto diff HCT % 40.1 51.0 47.5 FINAL Marcelo Olson B&Whole Blood [facility] ([facility]), [address], [address] [place] [address] 05/31 CBC w/ auto diff MCV fL 79.0 92.2 94.8 High FINAL Marcelo Mahmoods B&Whole Blood [facility] ([facility]), [address], [address] [place] [address] 05/31 CBC w/ auto diff MCH pg 25.7 32.2 32.7 High FINAL Marcelo Mahmoods B&Whole Blood [facility] ([facility]), [address], [address] [place] [address] 05/31 CBC w/ auto diff MCHC g/dL 32.3 36.5 34.5 FINAL [facility] B&Whole Blood [facility] (T), [address], [address] [place] [address] 05/31 CBC w/ auto diff RDW-C V, % % 11.6 14.4 13.8 FINAL [facility] B&Whole Blood [facility] (T), [address], [address] [place] [address] 05/31 CBC w/ auto diff PLT 10*3/u L 163.0 337.0 161.0 Low FINAL [facility] B&Whole Blood [facility] ([facility]), [address], [address] [place] [address] 06/21 CBC w/ auto diff WBC 10*3/u L 4.2 9.1 14.1 High FINAL [facility] ([facility]), [address], [address] [place] [address] 06/21 CBC w/ auto diff Cristobal # (ANC) 10*3/u L 1.78 5.38 10.63 High FINAL [facility] ([facility]), [address], [address] [place] [address] 06/21 CBC w/ auto diff LY # 10*3/u L 1.32 3.57 2.09 FINAL [facility] ([facility]), [address], [address] [place] [address] 06/21 CBC w/ auto diff MO # 10*3/u L 0.3 0.82 1.34 High FINAL [facility] ([facility]), [address], [address] [place] [address] 06/21 CBC w/ auto diff EO # 10*3/u lL 0.04 0.54 0.03 Low FINAL [facility] ([facility]), [address], [address] [place] [address] 06/21 CBC w/ auto diff BA # 10*3/u L 0.01 0.08 0.02 FINAL [facility] ([facility]), [address], [address] [place] [address] 06/21 CBC w/ auto diff Cristobal % % 34.0 67.9 75.4 High FINAL [facility] ([facility]), [address], [address] [place] [address] 06/21 CBC w/ auto diff LY % % 21.8 53.1 14.8 Low FINAL [facility] ([facility]), [address], [address] [place] [address] 06/21 CBC w/ auto diff MO % % 5.3 12.2 9.5 FINAL [facility] ([facility]), [address], [address] [place] [address] 06/21 CBC w/ auto diff EO % % 0.8 7.0 0.2 Low FINAL [facility] ([facility]), [address], [address] [place] [address] 06/21 CBC w/ auto diff BA % % 0.2 1.2 0.1 Low FINAL [facility] ([facility]), [address], [address] [place] [address] 06/21 CBC w/ auto diff RBC 10*6/u L 4.63 6.08 4.90 FINAL [facility] ([facility]), [address], [address] [place] [address] 06/21 CBC w/ auto diff HGB g/dL 13.7 17.5 16.0 FINAL [facility] ([facility]), [address], [address] [place] [address] 06/21 CBC w/ auto diff HCT % 40.1 51.0 47.5 FINAL [facility] ([facility]), [address], [address] [place] [address] 06/21 CBC w/ auto diff MCV fL 79.0 92.2 96.9 High FINAL [facility] ([facility]), [address], [address] [place] [address] 06/21 CBC w/ auto diff MCH pg 25.7 32.2 32.7 High FINAL [facility] ([facility]), [address], [address] [facility] [address] 06/21 CBC w/ auto diff MCHC g/dL 32.3 36.5 33.7 FINAL [facility] ([facility]), [address], [address] [facility] [address] 06/21 CBC w/ auto diff RDW-C V, % % 11.6 14.4 14.0 FINAL [facility] ([facility]), [address], [address] [facility] [address] 06/21 CBC w/ auto diff PLT 10*3/u L 163.0 337.0 185.0 FINAL [facility] ([facility]), [address], [address] [facility] [address] 07/23 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 Medications Date Name Route Dose Frequency Instructions Start Date End Date Status Fill Status Indication 12/22 Sitagli ptin-Me tformin Oral 50 mg-1,00 0 mg orally 1.0 2 times per day active 12/22 Aspirin Oral orally 81.0 mg daily active 12/22 Insulin Detemir Subcuta neous 100 unit/mL subcutan eously 36.0 every evening active 12/22 Cyanoco balamin Oral orally 5000.0 mcg daily active 12/22 [place] 3-DHA-E PA-Fish Oil Oral Liquid 1,600 mg-500 [...] Print Location: Unknown Date/Time Printed: 10/19/2025 17:00 (Lauren/[facility]) Patient: VALERIE PUENTES Sex: Male : [...] Selected Billing Code(s): PHLEBOTOMY THERAPEUTIC SEPARATE PROCEDURE (58154) Entered By Barbara Casas RN; Incident to Marcelo Olson MD
--- OUTSIDE RECORDS SUMMARY | 2025-10-19 17:00 | XMS_ITS ---
Author Name Interface, [id number] lity Address [address] [place] [address] Organization [facility] Address [address] [place] [address] Allergies and Adverse Reactions Medication/Group Name Reaction [...] 9.1 8.8 FINAL Marcelo Olson B&Whole Blood [facility] ([facility]), [address], [address] [place] [address] 02/15 CBC w/ auto diff Cristobal # (ANC) 10*3/u L 1.78 5.38 4.12 FINAL Marcelo Olson B&Whole Blood [facility] ([facility]), [address], [address] [place] [address] 02/15 CBC w/ auto diff LY # 10*3/u L 1.32 3.57 3.32 FINAL Marcelo Olson B&Whole Blood [facility] ([facility]), [address], [address] [place] [address] 02/15 CBC w/ auto diff MO # 10*3/u L 0.3 0.82 0.96 High FINAL Marcelo Olson B&Whole Blood [facility] ([facility]), [address], [address] [place] [address] 02/15 CBC w/ auto diff EO # 10*3/u lL 0.04 0.54 0.36 FINAL Marcelo Olson B&Whole Blood [facility] ([facility]), [address], [address] [place] [address] 02/15 CBC w/ auto diff BA # 10*3/u L 0.01 0.08 0.04 FINAL Marcelo Olson B&Whole Blood [facility] ([facility]), [address] [facility], [address] [place] [address] 02/15 CBC w/ auto diff Cristobal % % 34.0 67.9 46.8 FINAL Marcelo Olson B&Whole Blood [facility] ([facility]), [address], [address] [place] [address] 02/15 CBC w/ auto diff LY % % 21.8 53.1 37.7 FINAL Marcelo Olson B&Whole Blood [facility] (T), [address], Suite [facility] [place] [address] 02/15 CBC w/ auto diff MO % % 5.3 12.2 10.9 FINAL Marcelo Olson B&Whole Blood [facility] (T), [address], Suite [facility] [place] [facility] 02/15 CBC w/ auto diff EO % % 0.8 7.0 4.1 FINAL Marcelo Olson B&Whole Blood [facility] (T), [address], [address] [facility] [place] [facility] 02/15 CBC w/ auto diff BA % % 0.2 1.2 0.5 FINAL Marcelo Olson B&Whole Blood [facility] ([facility]), [address], [address] [facility] [place] [facility] 02/15 CBC w/ auto diff RBC 10*6/u L 4.63 6.08 5.33 FINAL Marcelo Olson B&Whole Blood [facility] ([facility]), [address], [address] [facility] [place] [facility] 02/15 CBC w/ auto diff HGB g/dL 13.7 17.5 17.4 FINAL Marcelo Olson B&Whole Blood [facility] (T), [address], [address] [place] [address] 02/15 CBC w/ auto diff HCT % 40.1 51.0 50.4 FINAL Marcelo Olson B&Whole Blood [facility] (T), [address], [address] [facility] [place] [facility] 02/15 CBC w/ auto diff MCV fL 79.0 92.2 94.6 High FINAL Marcelo Olson B&Whole Blood [facility] ([facility]), [address], Suite [facility] [place] [facility] 02/15 CBC w/ auto diff MCH pg 25.7 32.2 32.6 High FINAL Marcelo Olson B&Whole Blood [facility] (T), [address], Suite [facility] [place] [facility] 02/15 CBC w/ auto diff MCHC g/dL 32.3 36.5 34.5 FINAL Marcelo Mahmoods B&Whole Blood [facility] (T), [address], Suite [facility] [place] [address] 02/15 CBC w/ auto diff RDW-C V, % % 11.6 14.4 14.0 FINAL Marcelo Mahmoods B&Whole Blood [facility] (T), [address], [address] [place] [address] 02/15 CBC w/ auto diff PLT 10*3/u L 163.0 337.0 172.0 FINAL Marcelo Mahmoods B&Whole Blood [facility] (T), [address], [address] [place] [address] 05/31 CBC w/ auto diff WBC 10*3/u L 4.2 9.1 10.4 High FINAL Marcelo Herms B&Whole Blood [facility] (T), [address], [address] [place] [address] 05/31 CBC w/ auto diff Cristobal # (ANC) 10*3/u L 1.78 5.38 5.26 FINAL Marcelo Mahmoods B&Whole Blood [facility] (T), [address], [address] [place] [address] 05/31 CBC w/ auto diff LY # 10*3/u L 1.32 3.57 3.84 High FINAL Marcelo Mahmoods B&Whole Blood [facility] (T), [address], [address] [place] [address] 05/31 CBC w/ auto diff MO # 10*3/u L 0.3 0.82 0.94 High FINAL Marcelo Herms B&Whole Blood [facility] (T), [address], [address] [place] [address] 05/31 CBC w/ auto diff EO # 10*3/u lL 0.04 0.54 0.30 FINAL Marcelo Herms B&Whole Blood [facility] (T), [address], [address] [place] [address] 05/31 CBC w/ auto diff BA # 10*3/u L 0.01 0.08 0.03 FINAL Marcelo Herms B&Whole Blood [facility] (T), [address], [address] [place] [address] 05/31 CBC w/ auto diff Cristobal % % 34.0 67.9 50.7 FINAL Marcelo Herms B&Whole Blood [facility] ([facility]), [address], Suite [facility] [place] [address] 05/31 CBC w/ auto diff LY % % 21.8 53.1 37.0 FINAL Marcelo Olson B&Whole Blood [facility] ([facility]), [address], [address] [facility] [place] [facility] 05/31 CBC w/ auto diff MO % % 5.3 12.2 9.1 FINAL Marcelo Olson B&Whole Blood [facility] ([facility]), [address], [address] [facility] [place] [facility] 05/31 CBC w/ auto diff EO % % 0.8 7.0 2.9 FINAL Marcelo Olson B&Whole Blood [facility] ([facility]), [address], [address] [place] [address] 05/31 CBC w/ auto diff BA % % 0.2 1.2 0.3 FINAL Marcelo Olson B&Whole Blood [facility] (T), [address], [address] [place] [address] 05/31 CBC w/ auto diff RBC 10*6/u L 4.63 6.08 5.01 FINAL Marcelo Olson B&Whole Blood [facility] (T), [address], [address] [place] [address] 05/31 CBC w/ auto diff HGB g/dL 13.7 17.5 16.4 FINAL Marcelo Olson B&Whole Blood [facility] ([facility]), [address], [address] [place] [address] 05/31 CBC w/ auto diff HCT % 40.1 51.0 47.5 FINAL Marcelo Olson B&Whole Blood [facility] ([facility]), [address], [address] [place] [address] 05/31 CBC w/ auto diff MCV fL 79.0 92.2 94.8 High FINAL Marcelo Mahmoods B&Whole Blood [facility] ([facility]), [address], [address] [place] [address] 05/31 CBC w/ auto diff MCH pg 25.7 32.2 32.7 High FINAL Marcelo Mahmoods B&Whole Blood [facility] ([facility]), [address], [address] [place] [address] 05/31 CBC w/ auto diff MCHC g/dL 32.3 36.5 34.5 FINAL [facility] B&Whole Blood [facility] (T), [address], [address] [place] [address] 05/31 CBC w/ auto diff RDW-C V, % % 11.6 14.4 13.8 FINAL [facility] B&Whole Blood [facility] (T), [address], [address] [place] [address] 05/31 CBC w/ auto diff PLT 10*3/u L 163.0 337.0 161.0 Low FINAL [facility] B&Whole Blood [facility] ([facility]), [address], [address] [place] [address] 06/21 CBC w/ auto diff WBC 10*3/u L 4.2 9.1 14.1 High FINAL [facility] ([facility]), [address], [address] [place] [address] 06/21 CBC w/ auto diff Cristobal # (ANC) 10*3/u L 1.78 5.38 10.63 High FINAL [facility] ([facility]), [address], [address] [place] [address] 06/21 CBC w/ auto diff LY # 10*3/u L 1.32 3.57 2.09 FINAL [facility] ([facility]), [address], [address] [place] [address] 06/21 CBC w/ auto diff MO # 10*3/u L 0.3 0.82 1.34 High FINAL [facility] ([facility]), [address], [address] [place] [address] 06/21 CBC w/ auto diff EO # 10*3/u lL 0.04 0.54 0.03 Low FINAL [facility] ([facility]), [address], [address] [place] [address] 06/21 CBC w/ auto diff BA # 10*3/u L 0.01 0.08 0.02 FINAL [facility] ([facility]), [address], [address] [place] [address] 06/21 CBC w/ auto diff Cristobal % % 34.0 67.9 75.4 High FINAL [facility] ([facility]), [address], [address] [place] [address] 06/21 CBC w/ auto diff LY % % 21.8 53.1 14.8 Low FINAL [facility] ([facility]), [address], [address] [place] [address] 06/21 CBC w/ auto diff MO % % 5.3 12.2 9.5 FINAL [facility] ([facility]), [address], [address] [place] [address] 06/21 CBC w/ auto diff EO % % 0.8 7.0 0.2 Low FINAL [facility] ([facility]), [address], [address] [place] [address] 06/21 CBC w/ auto diff BA % % 0.2 1.2 0.1 Low FINAL [facility] ([facility]), [address], [address] [place] [address] 06/21 CBC w/ auto diff RBC 10*6/u L 4.63 6.08 4.90 FINAL [facility] ([facility]), [address], [address] [place] [address] 06/21 CBC w/ auto diff HGB g/dL 13.7 17.5 16.0 FINAL [facility] ([facility]), [address], [address] [place] [address] 06/21 CBC w/ auto diff HCT % 40.1 51.0 47.5 FINAL [facility] ([facility]), [address], [address] [place] [address] 06/21 CBC w/ auto diff MCV fL 79.0 92.2 96.9 High FINAL [facility] ([facility]), [address], [address] [place] [address] 06/21 CBC w/ auto diff MCH pg 25.7 32.2 32.7 High FINAL [facility] ([facility]), [address], [address] [facility] [address] 06/21 CBC w/ auto diff MCHC g/dL 32.3 36.5 33.7 FINAL [facility] ([facility]), [address], [address] [facility] [address] 06/21 CBC w/ auto diff RDW-C V, % % 11.6 14.4 14.0 FINAL [facility] ([facility]), [address], [address] [facility] [address] 06/21 CBC w/ auto diff PLT 10*3/u L 163.0 337.0 185.0 FINAL [facility] ([facility]), [address], [address] [facility] [address] 07/23 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 t 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 Medications Date Name Route Dose Frequency Instructions Start Date End Date Status Fill Status Indication 12/22 Sitagli ptin-Me tformin Oral 50 mg-1,00 0 mg orally 1.0 2 times per day active 12/22 Aspirin Oral orally 81.0 mg daily active 12/22 Insulin Detemir Subcuta neous 100 unit/mL subcutan eously 36.0 every evening active 12/22 [place]yan[place] balamin Oral orally 5000.0 mcg daily active 12/22 [place] 3-DHA-E PA-Fish Oil Oral Liquid 1,600 mg-500 [...] Print Location: Unknown Date/Time Printed: 10/19/2025 17:00 (Lauren/[facility]) Patient: VALERIE PUENTES Sex: Male : 1960 [...] Selected Billing Code(s): PHLEBOTOMY THERAPEUTIC SEPARATE PROCEDURE (49968) Entered By Barbara Casas RN; Incident to Marcelo Olson MD
--- OUTSIDE RECORDS SUMMARY | 2025-10-19 17:00 | XMS_ITS ---
Author Name Interface, [id number] lity Address [address] [place] [address] Organization [facility] Address [address] [place] [address] Allergies and Adverse Reactions Medication/Group Name Reaction [...] Blood [facility] ([facility]), [address], [address] [place] [address] 07/20 CBC w/ auto diff Cristobal # (ANC) 10*3/u L 1.78 5.38 4.47 FINAL Marcelo Olson B&Whole Blood [facility] ([facility]), [address], [address] [facility] [place] [facility] 07/20 CBC w/ auto diff LY # 10*3/u L 1.32 3.57 3.40 FINAL Marcelo Olson B&Whole Blood [facility] ([facility]), [address], [address] [place], [place] [id number] 07/20 CBC w/ auto diff MO # 10*3/u L 0.3 0.82 0.80 FINAL Marcelo Olson B&Whole Blood [facility] ([facility]), [address], [address] [facility] [place] [address] 07/20 CBC w/ auto diff EO # 10*3/u lL 0.04 0.54 0.38 FINAL Marcelo Olson B&Whole Blood [facility] ([facility]), [address], [address] [facility] [place] [address] 07/20 CBC w/ auto diff BA # 10*3/u L 0.01 0.08 0.03 FINAL Marcelo Funez&Whole Blood [facility] ([facility]), [address], [address] [place] [address] 07/20 CBC w/ auto diff Cristobal % % 34.0 67.9 49.3 FINAL Marcelo Herms B&Whole Blood [facility] ([facility]), [address], [address] [place] [address] 07/20 CBC w/ auto diff LY % % 21.8 53.1 37.4 FINAL Marcelo Herms B&Whole Blood [facility] ([facility]), [address], [address] [place] [address] 07/20 CBC w/ auto diff MO % % 5.3 12.2 8.8 FINAL Marcelo Herms B&Whole Blood [facility] ([facility]), [address], [address] [place] [address] 07/20 CBC w/ auto diff EO % % 0.8 7.0 4.2 FINAL Marcelo Herms B&Whole Blood [facility] ([facility]), [address], [address] [place] [address] 07/20 CBC w/ auto diff BA % % 0.2 1.2 0.3 FINAL Marcelo Herms B&Whole Blood [facility] ([facility]), [address], [address] [place] [address] 07/20 CBC w/ auto diff RBC 10*6/u L 4.63 6.08 5.60 FINAL Marcelo Herms B&Whole Blood [facility] ([facility]), [address], [address] [place] [address] 07/20 CBC w/ auto diff HGB g/dL 13.7 17.5 18.2 High FINAL Marcelo Herms B&Whole Blood [facility] ([facility]), [address], [address] [place] [address] 07/20 CBC w/ auto diff HCT % 40.1 51.0 52.8 High FINAL Marcelo Herms B&Whole Blood [facility] ([facility]), [address], [address] [place] [address] 07/20 CBC w/ auto diff MCV fL 79.0 92.2 94.3 High FINAL Marcelo Herms B&Whole Blood [facility] ([facility]), [address], [address] [place] [address] 07/20 CBC w/ auto diff MCH pg 25.7 32.2 32.5 High FINAL Marcelo Herms B&Whole Blood [facility] ([facility]), [address], [address] [place] [address] 07/20 CBC w/ auto diff MCHC g/dL 32.3 36.5 34.5 FINAL Marcelo Herms B&Whole Blood [facility] ([facility]), [address], [address] [place] [address] 07/20 CBC w/ auto diff RDW-C V, % % 11.6 14.4 12.5 FINAL Marcelo Herms B&Whole Blood [facility] ([facility]), [address], [address] [place] [address] 07/20 CBC w/ auto diff PLT 10*3/u L 163.0 337.0 160.0 Low FINAL Marcelo Herms B&Whole Blood [facility] ([facility]), [address], [address] [place] [address] 11/09 CBC w/ auto diff WBC 10*3/u [...] Blood 5 02/12 Lab Repor t See crown attacher d 02/15 CBC w/ auto diff WBC 10*3/u L 4.2 9.1 8.8 FINAL Marcelo Olson B&Whole Blood [facility] ([facility]), [address], [address] [place] [address] 02/15 CBC w/ auto diff Cristobal # (ANC) 10*3/u L 1.78 5.38 4.12 FINAL Marcelo Mahmoods B&Whole Blood [facility] ([facility]), [address], [address] [facility] [place] [address] 02/15 CBC w/ auto diff LY # 10*3/u L 1.32 3.57 3.32 FINAL Marcelo Mahmoods B&Whole Blood [facility] ([facility]), [address], [address] [facility] [place] [address] 02/15 CBC w/ auto diff MO # 10*3/u L 0.3 0.82 0.96 High FINAL Marcelo Mahmoods B&Whole Blood [facility] ([facility]), [address], [address] [facility] [place] [address] 02/15 CBC w/ auto diff EO # 10*3/u lL 0.04 0.54 0.36 FINAL Marcelo Mahmoods B&Whole Blood [facility] ([facility]), [address], [address] [facility] [place] [address] 02/15 CBC w/ auto diff BA # 10*3/u L 0.01 0.08 0.04 FINAL Marcelo Mahmoods B&Whole Blood [facility] ([facility]), [address], [address] [facility] [place] [address] 02/15 CBC w/ auto diff Cristobal % % 34.0 67.9 46.8 FINAL Marcelo Mahmoods B&Whole Blood [facility] ([facility]), [address], [address] [facility] [place] [facility] 02/15 CBC w/ auto diff LY % % 21.8 53.1 37.7 FINAL Marcelo Mahmoods B&Whole Blood [facility] ([facility]), [address], [address] [facility] [place] [address] 02/15 CBC w/ auto diff MO % % 5.3 12.2 10.9 FINAL Marcelo Mahmoods B&Whole Blood [facility] ([facility]), [address], [address] [facility] [place] [address] 02/15 CBC w/ auto diff EO % % 0.8 7.0 4.1 FINAL Marcelo Mahmoods B&Whole Blood [facility] ([facility]), [address], [address] [facility] [place] [address] 02/15 CBC w/ auto diff BA % % 0.2 1.2 0.5 FINAL Marcelo Mahmoods B&Whole Blood [facility] ([facility]), [address], [address] [facility] [place] [address] 02/15 CBC w/ auto diff RBC 10*6/u L 4.63 6.08 5.33 FINAL Marcelo Olson B&Whole Blood [facility] ([facility]), [address], [address] [facility] [place] [facility] 02/15 CBC w/ auto diff HGB g/dL 13.7 17.5 17.4 FINAL Marcelo Olson B&Whole Blood [facility] ([facility]), [address], [address] [facility] [place] [facility] 02/15 CBC w/ auto diff HCT % 40.1 51.0 50.4 FINAL Marcelo Olson B&Whole Blood [facility] ([facility]), [address], [address] [place] [address] 02/15 CBC w/ auto diff MCV fL 79.0 92.2 94.6 High FINAL Marcelo Mahmoods B&Whole Blood [facility] ([facility]), [address], [address] [place] [address] 02/15 CBC w/ auto diff MCH pg 25.7 32.2 32.6 High FINAL Marcelo Olson B&Whole Blood [facility] ([facility]), [address], [address] [place] [address] 02/15 CBC w/ auto diff MCHC g/dL 32.3 36.5 34.5 FINAL Marcelo Olson B&Whole Blood [facility] ([facility]), [address], [address] [place] [address] 02/15 CBC w/ auto diff RDW-C V, % % 11.6 14.4 14.0 FINAL Marcelo Olson B&Whole Blood [facility] ([facility]), [address], [address] [facility] [place] [facility] 02/15 CBC w/ auto diff PLT 10*3/u L 163.0 337.0 172.0 FINAL Marcelo Mahmoods B&Whole Blood [facility] ([facility]), [address], [address] [facility] [place] [address] 05/31 CBC w/ auto diff WBC 10*3/u L 4.2 9.1 10.4 High FINAL Marcelo Mahmoods B&Whole Blood [facility] ([facility]), [address], [address] [facility] [place] [facility] 05/31 CBC w/ auto diff Cristobal # (ANC) 10*3/u L 1.78 5.38 5.26 FINAL Marcelo Olson B&Whole Blood [facility] ([facility]), [address], [address] [place] [address] 05/31 CBC w/ auto diff LY # 10*3/u L 1.32 3.57 3.84 High FINAL Marcelo Olson B&Whole Blood [facility] ([facility]), [address], [address] [place] [address] 05/31 CBC w/ auto diff MO # 10*3/u L 0.3 0.82 0.94 High FINAL Marcelo Olson B&Whole Blood [facility] ([facility]), [address], [address] [place] [address] 05/31 CBC w/ auto diff EO # 10*3/u lL 0.04 0.54 0.30 FINAL Marcelo Olson B&Whole Blood [facility] ([facility]), [address], [address] [place] [address] 05/31 CBC w/ auto diff BA # 10*3/u L 0.01 0.08 0.03 FINAL Marcelo Olson B&Whole Blood [facility] ([facility]), [address], [address] [place] [address] 05/31 CBC w/ auto diff Cristobal % % 34.0 67.9 50.7 FINAL Marcelo Olson B&Whole Blood [facility] ([facility]), [address], [address] [place] [address] 05/31 CBC w/ auto diff LY % % 21.8 53.1 37.0 FINAL Marcelo Olson B&Whole Blood [facility] ([facility]), [address], [address] [place] [address] 05/31 CBC w/ auto diff MO % % 5.3 12.2 9.1 FINAL Marcelo Mahmoods B&Whole Blood [facility] ([facility]), [address], [address] [place] [address] 05/31 CBC w/ auto diff EO % % 0.8 7.0 2.9 FINAL Marcelo Mahmoods B&Whole Blood [facility] ([facility]), [address], [address] [place] [address] 05/31 CBC w/ auto diff BA % % 0.2 1.2 0.3 FINAL Marcelo Mahmoods B&Whole Blood [facility] ([facility]), [address], [address] [place] [address] 05/31 CBC w/ auto diff RBC 10*6/u L 4.63 6.08 5.01 FINAL Marcelo Mahmoods B&Whole Blood [facility] ([facility]), [address], [address] [place] [address] 05/31 CBC w/ auto diff HGB g/dL 13.7 17.5 16.4 FINAL Marcelo Mahmoods B&Whole Blood [facility] ([facility]), [address], [address] [place] [address] 05/31 CBC w/ auto diff HCT % 40.1 51.0 47.5 FINAL Marcelo Mahmoods B&Whole Blood [facility] ([facility]), [address], [address] [place] [address] 05/31 CBC w/ auto diff MCV fL 79.0 92.2 94.8 High FINAL Marcelo Mahmoods B&Whole Blood [facility] ([facility]), [address], [address] [place] [address] 05/31 CBC w/ auto diff MCH pg 25.7 32.2 32.7 High FINAL [facility] B&Whole Blood [facility] ([facility]), [address], [address] [place] [address] 05/31 CBC w/ auto diff MCHC g/dL 32.3 36.5 34.5 FINAL Marcelo Mahmoods B&Whole Blood [facility] ([facility]), [address], [address] [place] [address] 05/31 CBC w/ auto diff RDW-C V, % % 11.6 14.4 13.8 FINAL Marceol Mahmoods B&Whole Blood [facility] ([facility]), [address], [address] [place] [address] 05/31 CBC w/ auto diff PLT 10*3/u L 163.0 337.0 161.0 Low FINAL Marcelo Mahmoods B&Whole Blood [facility] ([facility]), [address], [address] [place] [address] 06/21 CBC w/ auto diff WBC 10*3/u L 4.2 9.1 14.1 High FINAL Marcelo [facility] ([facility]), [address], [address] [place] [address] 06/21 CBC w/ auto diff Cristobal # (ANC) 10*3/u L 1.78 5.38 10.63 High FINAL Marcelo [facility] ([facility]), [address], [address] [place] [address] 06/21 CBC w/ auto diff LY # 10*3/u L 1.32 3.57 2.09 FINAL Marcelo [facility] ([facility]), [address], [address] [place] [address] 06/21 CBC w/ auto diff MO # 10*3/u L 0.3 0.82 1.34 High FINAL Marcelo [facility] ([facility]), [address], [address] [place] [address] 06/21 CBC w/ auto diff EO # 10*3/u lL 0.04 0.54 0.03 Low FINAL Marcelo [facility] ([facility]), [address], [address] [place] [address] 06/21 CBC w/ auto diff BA # 10*3/u L 0.01 0.08 0.02 FINAL Marcelo [facility] ([facility]), [address], [address] [place] [address] 06/21 CBC w/ auto diff Cristobal % % 34.0 67.9 75.4 High FINAL Marcelo [facility] ([facility]), [address], [address] [place] [address] 06/21 CBC w/ auto diff LY % % 21.8 53.1 14.8 Low FINAL Marcelo [facility] ([facility]), [address], [address] [place] [address] 06/21 CBC w/ auto diff MO % % 5.3 12.2 9.5 FINAL Marcelo [facility] ([facility]), [address], [address] [place] [address] 06/21 CBC w/ auto diff EO % % 0.8 7.0 0.2 Low FINAL [facility] ([facility]), [address], [address] [place] [address] 06/21 CBC w/ auto diff BA % % 0.2 1.2 0.1 Low FINAL [facility] ([facility]), [address], [address] [place] [address] 06/21 CBC w/ auto diff RBC 10*6/u L 4.63 6.08 4.90 FINAL [facility] ([facility]), [address], [address] [place] [address] 06/21 CBC w/ auto diff HGB g/dL 13.7 17.5 16.0 FINAL [facility] ([facility]), [address], [address] [place] [address] 06/21 CBC w/ auto diff HCT % 40.1 51.0 47.5 FINAL [facility] ([facility]), [address], [address] [place] [address] 06/21 CBC w/ auto diff MCV fL 79.0 92.2 96.9 High FINAL [facility] ([facility]), [address], [address] [place] [address] 06/21 CBC w/ auto diff MCH pg 25.7 32.2 32.7 High FINAL [facility] ([facility]), [address], [address] [place] [address] 06/21 CBC w/ auto diff MCHC g/dL 32.3 36.5 33.7 FINAL [facility] ([facility]), [address], [address] [place] [address] 06/21 CBC w/ auto diff RDW-C V, % % 11.6 14.4 14.0 FINAL [facility] ([facility]), [address], [address] [place] [address] 06/21 CBC w/ auto diff PLT 10*3/u L 163.0 337.0 185.0 FINAL Marcelo Olson [facility] Jennifer ([facility]), [address], [address] [facility] [address] 07/23 Lab Repor t See crown attacher d Medications Date Name Route Dose [...] Oral orally 5000.0 mcg daily active 12/22 [place] 3-DHA-E PA-Fish Oil Oral Liquid 1,600 mg-500 [...] Print Location: Unknown Date/Time Printed: 10/19/2025 17:00 ([facility]) Patient: VALERIE PUENTES Sex: Male [...] . Entered By Barbara Casas RN on : IV Access/Lab Draw : IV Access-Peripheral - [...] Selected Billing Code(s): PHLEBOTOMY THERAPEUTIC SEPARATE PROCEDURE (05304) Entered By Barbara Casas RN; Incident to Marcelo Olson MD * Nurse Note for: 09-NOV-19 [facility] Nurse Note Print Location: Unknown Date/Time Printed: 10/19/2025 17:00 ([facility]) Patient: VALERIE PUENTES Sex: Male [...] Selected Billing Code(s): PHLEBOTOMY THERAPEUTIC SEPARATE PROCEDURE (14917) Entered By Ju Gupta RN; Incident to Marcelo Olson MD * Nurse Note for: 20-JUL-19 [facility] Nurse Note Print Location: Unknown Date/Time Printed: 10/19/2025 17:00 ([facility]) Patient: VALERIE PUENTES Sex: Male [...] Selected Billing Code(s): PHLEBOTOMY THERAPEUTIC SEPARATE PROCEDURE (69444) Entered By Barbara Garcia RN; Incident to Marcelo Olson MD
--- OUTSIDE RECORDS SUMMARY | 2025-10-19 17:00 | XMS_ITS | CCD ---
Author Name Interface, [id number] lity Address [address] [id number] Organization [facility] Address [address] [place] [id number] Care Team Providers Care Commissioner Of Conciliation Name Role Phone Whitney HUGHES, Marcelo Munguia [...] Oral orally 25.0 mg daily active 12/22 [place] 3-DHA-E PA-Fish Oil Oral Liquid 1,600 mg-500 [...]
--- OUTSIDE RECORDS SUMMARY | 2025-10-19 17:00 | XMS_ITS | CCD ---
Author Name Interface, [id number] lity Address [address] [id number] Organization [facility] Address [address] [place] [id number] Care Team Providers Care Concrete Wall Grinder Operator Name Role Phone Whitney HUGHES, Marcelo Munguia [...] Oral orally 25.0 mg daily active 12/22 [place] 3-DHA-E PA-Fish Oil Oral Liquid 1,600 mg-500 [...]
--- OUTSIDE RECORDS SUMMARY | 2025-10-19 17:00 | XMS_ITS ---
Author Name Interface, [id number] lity Address [address] [place] [address] Organization [facility] Address [address] [place] [address] Allergies and Adverse Reactions Medication/Group Name Reaction [...] 9.1 8.8 FINAL Marcelo Olson B&Whole Blood [facility] ([facility]), [address], [address] [place] [address] 02/15 CBC w/ auto diff Cristobal # (ANC) 10*3/u L 1.78 5.38 4.12 FINAL Marcelo Olson B&Whole Blood [facility] ([facility]), [address], [address] [place] [address] 02/15 CBC w/ auto diff LY # 10*3/u L 1.32 3.57 3.32 FINAL Marcelo Olson B&Whole Blood [facility] ([facility]), [address], [address] [place] [address] 02/15 CBC w/ auto diff MO # 10*3/u L 0.3 0.82 0.96 High FINAL Marcelo Olson B&Whole Blood [facility] ([facility]), [address], [address] [place] [address] 02/15 CBC w/ auto diff EO # 10*3/u lL 0.04 0.54 0.36 FINAL Marcelo Olson B&Whole Blood [facility] ([facility]), [address], [address] [place] [address] 02/15 CBC w/ auto diff BA # 10*3/u L 0.01 0.08 0.04 FINAL Marcelo Olson B&Whole Blood [facility] ([facility]), [address], [address] [place] [address] 02/15 CBC w/ auto diff Cristobal % % 34.0 67.9 46.8 FINAL Marcelo Olson B&Whole Blood [facility] ([facility]), [address], [address] [place] [address] 02/15 CBC w/ auto diff LY % % 21.8 53.1 37.7 FINAL Marcelo Mahmoods B&Whole Blood [facility] ([facility]), [address], Suite [facility] [place] [address] 02/15 CBC w/ auto diff MO % % 5.3 12.2 10.9 FINAL Marcelo Mahmoods B&Whole Blood [facility] ([facility]), [address], Suite [facility] [place] [address] 02/15 CBC w/ auto diff EO % % 0.8 7.0 4.1 FINAL Marcelo Olson B&Whole Blood [facility] ([facility]), [address], Suite [facility] [place] [facility] 02/15 CBC w/ auto diff BA % % 0.2 1.2 0.5 FINAL Marcelo Mahmoods B&Whole Blood [facility] (T), [address], Suite [facility] [place] [facility] 02/15 CBC w/ auto diff RBC 10*6/u L 4.63 6.08 5.33 FINAL Marcelo Mahmoods B&Whole Blood [facility] (T), [address], Suite [facility] [place] [facility] 02/15 CBC w/ auto diff HGB g/dL 13.7 17.5 17.4 FINAL Marcelo Olson B&Whole Blood [facility] (T), [address], [address] [facility] [place] [facility] 02/15 CBC w/ auto diff HCT % 40.1 51.0 50.4 FINAL Marcelo Mahmoods B&Whole Blood [facility] (T), [address], [address] [facility] [place] [facility] 02/15 CBC w/ auto diff MCV fL 79.0 92.2 94.6 High FINAL Marcelo Mahmoods B&Whole Blood [facility] ([facility]), [address], Suite [facility] [place] [address] 02/15 CBC w/ auto diff MCH pg 25.7 32.2 32.6 High FINAL Marcelo Mahmoods B&Whole Blood [facility] ([facility]), [address], Suite [facility] [place] [address] 02/15 CBC w/ auto diff MCHC g/dL 32.3 36.5 34.5 FINAL Marcelo Mahmoods B&Whole Blood [facility] ([facility]), [address], [address] [place] [address] 02/15 CBC w/ auto diff RDW-C V, % % 11.6 14.4 14.0 FINAL Marcelo Mahmoods B&Whole Blood [facility] (T), [address], [address] [place] [address] 02/15 CBC w/ auto diff PLT 10*3/u L 163.0 337.0 172.0 FINAL Marcelo Mahmoods B&Whole Blood [facility] ([facility]), [address], [address] [place] [address] 05/31 CBC w/ auto diff WBC 10*3/u L 4.2 9.1 10.4 High FINAL Marcelo Mahmoods B&Whole Blood [facility] ([facility]), [address], [address] [place] [address] 05/31 CBC w/ auto diff Cristobal # (ANC) 10*3/u L 1.78 5.38 5.26 FINAL Marcelo Mahmoods B&Whole Blood [facility] ([facility]), [address], [address] [place] [address] 05/31 CBC w/ auto diff LY # 10*3/u L 1.32 3.57 3.84 High FINAL Marcelo Mahmoods B&Whole Blood [facility] ([facility]), [address], [address] [place] [address] 05/31 CBC w/ auto diff MO # 10*3/u L 0.3 0.82 0.94 High FINAL Marcelo Mahmoods B&Whole Blood [facility] ([facility]), [address], [address] [place] [address] 05/31 CBC w/ auto diff EO # 10*3/u lL 0.04 0.54 0.30 FINAL Marcelo Mahmoods B&Whole Blood [facility] ([facility]), [address], [address] [place] [address] 05/31 CBC w/ auto diff BA # 10*3/u L 0.01 0.08 0.03 FINAL Marcelo Herms B&Whole Blood [facility] ([facility]), [address], [address] [place] [address] 05/31 CBC w/ auto diff Cristobal % % 34.0 67.9 50.7 FINAL Marcelo Herms B&Whole Blood [facility] (T), [address], [address] [facility] [place] [facility] 05/31 CBC w/ auto diff LY % % 21.8 53.1 37.0 FINAL Marcelo Olson B&Whole Blood [facility] (T), [address], [address] [place] [address] 05/31 CBC w/ auto diff MO % % 5.3 12.2 9.1 FINAL Marcelo Olson B&Whole Blood [facility] (T), [address], [address] [place] [address] 05/31 CBC w/ auto diff EO % % 0.8 7.0 2.9 FINAL Marcelo Olson B&Whole Blood [facility] (T), [address], [address] [place] [address] 05/31 CBC w/ auto diff BA % % 0.2 1.2 0.3 FINAL Marcelo Olson B&Whole Blood [facility] (T), [address], [address] [place] [address] 05/31 CBC w/ auto diff RBC 10*6/u L 4.63 6.08 5.01 FINAL Marcelo Olson B&Whole Blood [facility] (T), [address], [address] [place] [address] 05/31 CBC w/ auto diff HGB g/dL 13.7 17.5 16.4 FINAL Marcelo Olson B&Whole Blood [facility] (T), [address], [address] [place] [address] 05/31 CBC w/ auto diff HCT % 40.1 51.0 47.5 FINAL Marcelo Olson B&Whole Blood [facility] (T), [address], [address] [place] [address] 05/31 CBC w/ auto diff MCV fL 79.0 92.2 94.8 High FINAL Marcelo Olson B&Whole Blood [facility] (T), [address], [address] [place] [address] 05/31 CBC w/ auto diff MCH pg 25.7 32.2 32.7 High FINAL Marcelo Olson B&Whole Blood [facility] (T), [address], [address] [place] [address] 05/31 CBC w/ auto diff MCHC g/dL 32.3 36.5 34.5 FINAL Marcelo [facility] B&Whole Blood [facility] ([facility]), [address], [address] [place] [address] 05/31 CBC w/ auto diff RDW-C V, % % 11.6 14.4 13.8 FINAL Marcelo [facility] B&Whole Blood [facility] ([facility]), [address], [address] [place] [address] 05/31 CBC w/ auto diff PLT 10*3/u L 163.0 337.0 161.0 Low FINAL [facility] B&Whole Blood [facility] ([facility]), [address], [address] [place] [address] 06/21 CBC w/ auto diff WBC 10*3/u L 4.2 9.1 14.1 High FINAL [facility] (T), [address], [address] [place] [address] 06/21 CBC w/ auto diff Cristobal # (ANC) 10*3/u L 1.78 5.38 10.63 High FINAL [facility] (T), [address], [address] [place] [address] 06/21 CBC w/ auto diff LY # 10*3/u L 1.32 3.57 2.09 FINAL [facility] (T), [address], [address] [place], [place] [id number] 06/21 CBC w/ auto diff MO # 10*3/u L 0.3 0.82 1.34 High FINAL [facility] ([facility]), [address], [address] [place], [place] [id number] 06/21 CBC w/ auto diff EO # 10*3/u lL 0.04 0.54 0.03 Low FINAL [facility] ([facility]), [address], [address] [facility] [address] 06/21 CBC w/ auto diff BA # 10*3/u L 0.01 0.08 0.02 FINAL [facility] ([facility]), [address], [address] [place] [address] 06/21 CBC w/ auto diff Cristobal % % 34.0 67.9 75.4 High FINAL Marcelo [facility] ([facility]), [address], [address] [place] [address] 06/21 CBC w/ auto diff LY % % 21.8 53.1 14.8 Low FINAL Marcelo [facility] ([facility]), [address], [address] [place] [address] 06/21 CBC w/ auto diff MO % % 5.3 12.2 9.5 FINAL Marcelo [facility] ([facility]), [address], [address] [place] [address] 06/21 CBC w/ auto diff EO % % 0.8 7.0 0.2 Low FINAL Marcelo [facility] ([facility]), [address], [address] [place] [address] 06/21 CBC w/ auto diff BA % % 0.2 1.2 0.1 Low FINAL Marcelo [facility] ([facility]), [address], [address] [place] [address] 06/21 CBC w/ auto diff RBC 10*6/u L 4.63 6.08 4.90 FINAL Marcelo [facility] ([facility]), [address], [address] [place] [address] 06/21 CBC w/ auto diff HGB g/dL 13.7 17.5 16.0 FINAL Marcelo [facility] ([facility]), [address], [address] [place] [address] 06/21 CBC w/ auto diff HCT % 40.1 51.0 47.5 FINAL Marcelo [facility] ([facility]), [address], [address] [place] [address] 06/21 CBC w/ auto diff MCV fL 79.0 92.2 96.9 High FINAL Marcelo [facility] ([facility]), [address], [address] [place] [address] 06/21 CBC w/ auto diff MCH pg 25.7 32.2 32.7 High FINAL [facility] ([facility]), [address], [address] [facility] [address] 06/21 CBC w/ auto diff MCHC g/dL 32.3 36.5 33.7 FINAL [facility] (T), [address], [address] [facility] [address] 06/21 CBC w/ auto diff RDW-C V, % % 11.6 14.4 14.0 FINAL [facility] (T), [address], [address] [facility] [address] 06/21 CBC w/ auto diff PLT 10*3/u L 163.0 337.0 185.0 FINAL [facility] ([facility]), [address], [address] [facility] [address] 07/23 Lab Repor t See solid waste collector d Medications Date Name Route Dose Frequency Instructions Start Date End Date Status Fill Status Indication 12/22 Sitagli ptin-Me tformin Oral 50 mg-1,00 0 mg orally 1.0 2 times per day active 12/22 Aspirin Oral orally 81.0 mg daily active 12/22 Insulin Detemir Subcuta neous 100 unit/mL subcutan eously 36.0 every evening active 12/22 Cyanoco balamin Oral orally 5000.0 mcg daily active 12/22 [place] 3-DHA-E PA-Fish Oil Oral Liquid 1,600 mg-500 [...] Print Location: Unknown Date/Time Printed: 10/19/2025 16:59 (Lauren/[facility]) Patient: VALERIE PUENTES Sex: Male : [...] Selected Billing Code(s): PHLEBOTOMY THERAPEUTIC SEPARATE PROCEDURE (54728) Entered By Barbara Casas RN; Incident to Marcelo Olson MD
--- OUTSIDE RECORDS SUMMARY | 2025-10-19 17:00 | XMS_ITS ---
Author Name Interface, [id number] lity Address [address] [place] [address] Organization [facility] Address [address] [place] [address] Allergies and Adverse Reactions Medication/Group Name Reaction [...] 9.1 8.8 FINAL Marcelo Olson B&Whole Blood [facility] ([facility]), [address], [address] [place] [address] 02/15 CBC w/ auto diff Cristobal # (ANC) 10*3/u L 1.78 5.38 4.12 FINAL Marcelo Olson B&Whole Blood [facility] ([facility]), [address], [address] [place] [address] 02/15 CBC w/ auto diff LY # 10*3/u L 1.32 3.57 3.32 FINAL Marcelo Olson B&Whole Blood [facility] ([facility]), [address], [address] [place] [address] 02/15 CBC w/ auto diff MO # 10*3/u L 0.3 0.82 0.96 High FINAL Marcelo Olson B&Whole Blood [facility] ([facility]), [address], [address] [place] [address] 02/15 CBC w/ auto diff EO # 10*3/u lL 0.04 0.54 0.36 FINAL Marcelo Olson B&Whole Blood [facility] ([facility]), [address], [address] [place] [address] 02/15 CBC w/ auto diff BA # 10*3/u L 0.01 0.08 0.04 FINAL Marcelo Olson B&Whole Blood [facility] ([facility]), [address], [address] [place] [address] 02/15 CBC w/ auto diff Cristobal % % 34.0 67.9 46.8 FINAL Marcelo Olson B&Whole Blood [facility] ([facility]), [address], [address] [place] [address] 02/15 CBC w/ auto diff LY % % 21.8 53.1 37.7 FINAL Marcelo Mahmoods B&Whole Blood [facility] ([facility]), [address], [place] [address] 02/15 CBC w/ auto diff MO % % 5.3 12.2 10.9 FINAL Marcelo Mahmoods B&Whole Blood [facility] ([facility]), [address], [place] [address] 02/15 CBC w/ auto diff EO % % 0.8 7.0 4.1 FINAL Marcelo Olson B&Whole Blood [facility] ([facility]), [address], [address] [facility] [place] [facility] 02/15 CBC w/ auto diff BA % % 0.2 1.2 0.5 FINAL Marcelo Mahmoods B&Whole Blood [facility] (T), [address], [address] [facility] [place] [facility] 02/15 CBC w/ auto diff RBC 10*6/u L 4.63 6.08 5.33 FINAL Marcelo Mahmoods B&Whole Blood [facility] (T), [address], [address] [facility] [place] [facility] 02/15 CBC w/ auto diff HGB g/dL 13.7 17.5 17.4 FINAL Marcelo Olson B&Whole Blood [facility] (T), [address], [address] [facility] [place] [facility] 02/15 CBC w/ auto diff HCT % 40.1 51.0 50.4 FINAL Marcelo Mahmoods B&Whole Blood [facility] (T), [address], [address] [facility] [place] [facility] 02/15 CBC w/ auto diff MCV fL 79.0 92.2 94.6 High FINAL Marcelo Mahmoods B&Whole Blood [facility] ([facility]), [address], [place] [facility] [place] [address] 02/15 CBC w/ auto diff MCH pg 25.7 32.2 32.6 High FINAL Marcelo Mahmoods B&Whole Blood [facility] ([facility]), [address], [place] [address] 02/15 CBC w/ auto diff MCHC g/dL 32.3 36.5 34.5 FINAL Marcelo Mahmoods B&Whole Blood [facility] ([facility]), [address], [address] [place] [address] 02/15 CBC w/ auto diff RDW-C V, % % 11.6 14.4 14.0 FINAL Marcelo Mahmoods B&Whole Blood [facility] (T), [address], [address] [place] [address] 02/15 CBC w/ auto diff PLT 10*3/u L 163.0 337.0 172.0 FINAL Marcelo Mahmoods B&Whole Blood [facility] ([facility]), [address], [address] [place] [address] 05/31 CBC w/ auto diff WBC 10*3/u L 4.2 9.1 10.4 High FINAL Marcelo Mahmoods B&Whole Blood [facility] ([facility]), [address], [address] [place] [address] 05/31 CBC w/ auto diff Cristobal # (ANC) 10*3/u L 1.78 5.38 5.26 FINAL Marcelo Mahmoods B&Whole Blood [facility] ([facility]), [address], [address] [place] [address] 05/31 CBC w/ auto diff LY # 10*3/u L 1.32 3.57 3.84 High FINAL Marcelo Mahmoods B&Whole Blood [facility] ([facility]), [address], [address] [place] [address] 05/31 CBC w/ auto diff MO # 10*3/u L 0.3 0.82 0.94 High FINAL Marcelo Mahmoods B&Whole Blood [facility] ([facility]), [address], [address] [place] [address] 05/31 CBC w/ auto diff EO # 10*3/u lL 0.04 0.54 0.30 FINAL Marcelo Mahmoods B&Whole Blood [facility] ([facility]), [address], [address] [place] [address] 05/31 CBC w/ auto diff BA # 10*3/u L 0.01 0.08 0.03 FINAL Marcelo Herms B&Whole Blood [facility] ([facility]), [address], [address] [place] [address] 05/31 CBC w/ auto diff Cristobal % % 34.0 67.9 50.7 FINAL Marcelo Herms B&Whole Blood [facility] (T), [address], [address] [facility] [place] [facility] 05/31 CBC w/ auto diff LY % % 21.8 53.1 37.0 FINAL Marcelo Olson B&Whole Blood [facility] (T), [address], [address] [place] [address] 05/31 CBC w/ auto diff MO % % 5.3 12.2 9.1 FINAL Marcelo Olson B&Whole Blood [facility] (T), [address], [address] [place] [address] 05/31 CBC w/ auto diff EO % % 0.8 7.0 2.9 FINAL Marcelo Olson B&Whole Blood [facility] (T), [address], [address] [place] [address] 05/31 CBC w/ auto diff BA % % 0.2 1.2 0.3 FINAL Marcelo Olson B&Whole Blood [facility] (T), [address], [address] [place] [address] 05/31 CBC w/ auto diff RBC 10*6/u L 4.63 6.08 5.01 FINAL Marcelo Olson B&Whole Blood [facility] (T), [address], [address] [place] [address] 05/31 CBC w/ auto diff HGB g/dL 13.7 17.5 16.4 FINAL Marcelo Olson B&Whole Blood [facility] (T), [address], [address] [place] [address] 05/31 CBC w/ auto diff HCT % 40.1 51.0 47.5 FINAL Marcelo Olson B&Whole Blood [facility] (T), [address], [address] [place] [address] 05/31 CBC w/ auto diff MCV fL 79.0 92.2 94.8 High FINAL Marcelo Olson B&Whole Blood [facility] (T), [address], [address] [place] [address] 05/31 CBC w/ auto diff MCH pg 25.7 32.2 32.7 High FINAL Marcelo Olson B&Whole Blood [facility] (T), [address], [address] [place] [address] 05/31 CBC w/ auto diff MCHC g/dL 32.3 36.5 34.5 FINAL Marcelo [facility] B&Whole Blood [facility] ([facility]), [address], [address] [place] [address] 05/31 CBC w/ auto diff RDW-C V, % % 11.6 14.4 13.8 FINAL Marcelo [facility] B&Whole Blood [facility] ([facility]), [address], [address] [place] [address] 05/31 CBC w/ auto diff PLT 10*3/u L 163.0 337.0 161.0 Low FINAL [facility] B&Whole Blood [facility] ([facility]), [address], [address] [place] [address] 06/21 CBC w/ auto diff WBC 10*3/u L 4.2 9.1 14.1 High FINAL [facility] (T), [address], [address] [place] [address] 06/21 CBC w/ auto diff Cristobal # (ANC) 10*3/u L 1.78 5.38 10.63 High FINAL [facility] (T), [address], [address] [place] [address] 06/21 CBC w/ auto diff LY # 10*3/u L 1.32 3.57 2.09 FINAL [facility] (T), [address], [address] [place], [place] [id number] 06/21 CBC w/ auto diff MO # 10*3/u L 0.3 0.82 1.34 High FINAL [facility] ([facility]), [address], [address] [place], [place] [id number] 06/21 CBC w/ auto diff EO # 10*3/u lL 0.04 0.54 0.03 Low FINAL [facility] ([facility]), [address], [address] [facility] [address] 06/21 CBC w/ auto diff BA # 10*3/u L 0.01 0.08 0.02 FINAL [facility] ([facility]), [address], [address] [place] [address] 06/21 CBC w/ auto diff Cristobal % % 34.0 67.9 75.4 High FINAL Marcelo [facility] ([facility]), [address], [address] [place] [address] 06/21 CBC w/ auto diff LY % % 21.8 53.1 14.8 Low FINAL Marcelo [facility] ([facility]), [address], [address] [place] [address] 06/21 CBC w/ auto diff MO % % 5.3 12.[address] [facility] ([facility]), [address], [address] [place] [address] 06/21 CBC w/ auto diff EO % % 0.8 7.0 0.[address] [facility] ([facility]), [address], [address] [place] [address] 06/21 CBC w/ auto diff BA % % 0.2 1.2 0.1 Low FINAL Marcelo [facility] ([facility]), [address], [address] [place] [address] 06/21 CBC w/ auto diff RBC 10*6/u L 4.63 6.[address] [facility] ([facility]), [address], [address] [place] [address] 06/21 CBC w/ auto diff HGB g/dL 13.7 17.5 16.0 FINAL Marcelo [facility] ([facility]), [address], [address] [place] [address] 06/21 CBC w/ auto diff HCT % 40.1 51.0 47.5 FINAL Marcelo [facility] ([facility]), [address], [address] [place] [address] 06/21 CBC w/ auto diff MCV fL 79.0 92.2 96[address] [facility] ([facility]), [address], [address] [place] [address] 06/21 CBC w/ auto diff MCH pg 25.7 32.2 32.7 High FINAL [facility] ([facility]), [address], [address] [facility] [address] 06/21 CBC w/ auto diff MCHC g/dL 32.3 36.5 33.7 FINAL [facility] (T), [address], [address] [facility] [address] 06/21 CBC w/ auto diff RDW-C V, % % 11.6 14.4 14.0 FINAL [facility] (T), [address], [address] [facility] [address] 06/21 CBC w/ auto diff PLT 10*3/u L 163.0 337.0 185.0 FINAL [facility] ([facility]), [address], [address] [facility] [address] 07/23 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 Medications Date Name Route Dose Frequency Instructions Start Date End Date Status Fill Status Indication 12/22 Sitagli ptin-Me tformin Oral 50 mg-1,00 0 mg orally 1.0 2 times per day active 12/22 Aspirin Oral orally 81.0 mg daily active 12/22 Insulin Detemir Subcuta neous 100 unit/mL subcutan eously 36.0 every evening active 12/22 [place]yan[place] balamin Oral orally 5000.0 mcg daily active 12/22 [place] 3-DHA-E PA-Fish Oil Oral Liquid 1,600 mg-500 [...] Print Location: Unknown Date/Time Printed: 10/19/2025 17:00 (Lauren/[facility]) Patient: VALERIE PUENTES Sex: Male : [...] Selected Billing Code(s): PHLEBOTOMY THERAPEUTIC SEPARATE PROCEDURE (70906) Entered By Barbara Casas RN; Incident to Marcelo Olson MD
--- OUTSIDE RECORDS SUMMARY | 2025-10-19 17:00 | XMS_ITS ---
Author Name Interface, [id number] lity Address [address] [place] [address] Organization [facility] Address [address] [place] [address] Allergies and Adverse Reactions Medication/Group Name Reaction [...] 8.8 FINAL Marcelo Olson B&Whole Blood [facility] ([facility]), [address], [address] [place] [address] 02/15 CBC w/ auto diff Cristobal # (ANC) 10*3/u L 1.78 5.38 4.12 FINAL Marcelo Olson B&Whole Blood [facility] ([facility]), [address] [facility] [address], [address] [place] [address] 02/15 CBC w/ auto diff LY # 10*3/u L 1.32 3.57 3.32 FINAL Marcelo Olson B&Whole Blood [facility] ([facility]), [address], [address] [place] [address] 02/15 CBC w/ auto diff MO # 10*3/u L 0.3 0.82 0.96 High FINAL Marcelo Olson B&Whole Blood [facility] ([facility]), [address], [address] [place] [address] 02/15 CBC w/ auto diff EO # 10*3/u lL 0.04 0.54 0.36 FINAL Marcelo Olson B&Whole Blood [facility] ([facility]), [address], [address] [place] [address] 02/15 CBC w/ auto diff BA # 10*3/u L 0.01 0.08 0.04 FINAL Marcelo Olson B&Whole Blood [facility] ([facility]), [address] [facility] [address], [address] [place] [address] 02/15 CBC w/ auto diff Cristobal % % 34.0 67.9 46.8 FINAL Marcelo Olson B&Whole Blood [facility] ([facility]), [address], [address] [place] [address] 02/15 CBC w/ auto diff LY % % 21.8 53.1 37.7 FINAL Marcelo Olson B&Whole Blood Former[facility] (T), [address], [address] [facility] [place] [address] 02/15 CBC w/ auto diff MO % % 5.3 12.2 10.9 FINAL Marcelo Olson B&Whole Blood [facility] (T), [address], [address] [facility] [place] [facility] 02/15 CBC w/ auto diff EO % % 0.8 7.0 4.1 FINAL Marcelo Olson B&Whole Blood [facility] (T), [address], [address] [facility] [place] [facility] 02/15 CBC w/ auto diff BA % % 0.2 1.2 0.5 FINAL Marcelo Olson B&Whole Blood [facility] ([facility]), [address], [address] [facility] [place] [facility] 02/15 CBC w/ auto diff RBC 10*6/u L 4.63 6.08 5.33 FINAL Marcelo Olson B&Whole Blood [facility] ([facility]), [address], [address] [facility] [place] [facility] 02/15 CBC w/ auto diff HGB g/dL 13.7 17.5 17.4 FINAL Marcelo Olson B&Whole Blood [facility] (T), [address], [address] [place] [address] 02/15 CBC w/ auto diff HCT % 40.1 51.0 50.4 FINAL Marcelo Olson B&Whole Blood [facility] (T), [address], [address] [facility] [place] [facility] 02/15 CBC w/ auto diff MCV fL 79.0 92.2 94.6 High FINAL Marcelo Olson B&Whole Blood [facility] ([facility]), [address], [address] [facility] [place] [facility] 02/15 CBC w/ auto diff MCH pg 25.7 32.2 32.6 High FINAL Marcelo Olson B&Whole Blood [facility] (T), [address], [address] [facility] [place] [facility] 02/15 CBC w/ auto diff MCHC g/dL 32.3 36.5 34.5 FINAL Marcelo Mahmoods B&Whole Blood [facility] (T), [address], [address] [facility] [place] [address] 02/15 CBC w/ auto diff RDW-C V, % % 11.6 14.4 14.0 FINAL Marcelo Mahmoods B&Whole Blood [facility] (T), [address], [address] [place] [address] 02/15 CBC w/ auto diff PLT 10*3/u L 163.0 337.0 172.0 FINAL Marcelo Mahmoods B&Whole Blood [facility] ([facility]), [address], [address] [place] [address] 05/31 CBC w/ auto diff WBC 10*3/u L 4.2 9.1 10.4 High FINAL Marcelo Herms B&Whole Blood [facility] (T), [address], [address] [place] [address] 05/31 CBC w/ auto diff Cristobal # (ANC) 10*3/u L 1.78 5.38 5.26 FINAL Marcelo Mahmoods B&Whole Blood [facility] ([facility]), [address], [address] [place] [address] 05/31 CBC w/ auto diff LY # 10*3/u L 1.32 3.57 3.84 High FINAL Marcelo Mahmoods B&Whole Blood [facility] (T), [address], [address] [place] [address] 05/31 CBC w/ auto diff MO # 10*3/u L 0.3 0.82 0.94 High FINAL Marcelo Herms B&Whole Blood [facility] (T), [address], [address] [place] [address] 05/31 CBC w/ auto diff EO # 10*3/u lL 0.04 0.54 0.30 FINAL Marcelo Herms B&Whole Blood [facility] (T), [address], [address] [place] [address] 05/31 CBC w/ auto diff BA # 10*3/u L 0.01 0.08 0.03 FINAL Marcelo Herms B&Whole Blood [facility] (T), [address], [address] [place] [address] 05/31 CBC w/ auto diff Cristobal % % 34.0 67.9 50.7 FINAL Marcelo Herms B&Whole Blood [facility] ([facility]), [address], [address] [facility] [place] [address] 05/31 CBC w/ auto diff LY % % 21.8 53.1 37.0 FINAL Marcelo Olson B&Whole Blood [facility] ([facility]), [address], [address] [facility] [place] [facility] 05/31 CBC w/ auto diff MO % % 5.3 12.2 9.1 FINAL Marcelo Olson B&Whole Blood [facility] ([facility]), [address], [address] [facility] [place] [facility] 05/31 CBC w/ auto diff EO % % 0.8 7.0 2.9 FINAL Marcelo Olson B&Whole Blood [facility] ([facility]), [address], [address] [place] [address] 05/31 CBC w/ auto diff BA % % 0.2 1.2 0.3 FINAL Marcelo Olson B&Whole Blood [facility] (T), [address], [address] [place] [address] 05/31 CBC w/ auto diff RBC 10*6/u L 4.63 6.08 5.01 FINAL Marcelo Olson B&Whole Blood [facility] (T), [address], [address] [place] [address] 05/31 CBC w/ auto diff HGB g/dL 13.7 17.5 16.4 FINAL Marcelo Olson B&Whole Blood [facility] ([facility]), [address], [address] [place] [address] 05/31 CBC w/ auto diff HCT % 40.1 51.0 47.5 FINAL Marcelo Olson B&Whole Blood [facility] ([facility]), [address], [address] [place] [address] 05/31 CBC w/ auto diff MCV fL 79.0 92.2 94.8 High FINAL Marcelo Mahmoods B&Whole Blood [facility] ([facility]), [address], [address] [place] [address] 05/31 CBC w/ auto diff MCH pg 25.7 32.2 32.7 High FINAL Marcelo Mahmoods B&Whole Blood [facility] ([facility]), [address], [address] [place] [address] 05/31 CBC w/ auto diff MCHC g/dL 32.3 36.5 34.5 FINAL [facility] B&Whole Blood [facility] (T), [address], [address] [place] [address] 05/31 CBC w/ auto diff RDW-C V, % % 11.6 14.4 13.8 FINAL [facility] B&Whole Blood [facility] (T), [address], [address] [place] [address] 05/31 CBC w/ auto diff PLT 10*3/u L 163.0 337.0 161.0 Low FINAL [facility] B&Whole Blood [facility] ([facility]), [address], [address] [place] [address] 06/21 CBC w/ auto diff WBC 10*3/u L 4.2 9.1 14.1 High FINAL [facility] ([facility]), [address], [address] [place] [address] 06/21 CBC w/ auto diff Cristobal # (ANC) 10*3/u L 1.78 5.38 10.63 High FINAL [facility] ([facility]), [address], [address] [place] [address] 06/21 CBC w/ auto diff LY # 10*3/u L 1.32 3.57 2.09 FINAL [facility] ([facility]), [address], [address] [place] [address] 06/21 CBC w/ auto diff MO # 10*3/u L 0.3 0.82 1.34 High FINAL [facility] ([facility]), [address], [address] [place] [address] 06/21 CBC w/ auto diff EO # 10*3/u lL 0.04 0.54 0.03 Low FINAL [facility] ([facility]), [address], [address] [place] [address] 06/21 CBC w/ auto diff BA # 10*3/u L 0.01 0.08 0.02 FINAL [facility] ([facility]), [address], [address] [place] [address] 06/21 CBC w/ auto diff Cristobal % % 34.0 67.9 75.4 High FINAL [facility] ([facility]), [address], [address] [place] [address] 06/21 CBC w/ auto diff LY % % 21.8 53.1 14.8 Low FINAL [facility] ([facility]), [address], [address] [place] [address] 06/21 CBC w/ auto diff MO % % 5.3 12.2 9.5 FINAL [facility] ([facility]), [address], [address] [place] [address] 06/21 CBC w/ auto diff EO % % 0.8 7.0 0.2 Low FINAL [facility] ([facility]), [address], [address] [place] [address] 06/21 CBC w/ auto diff BA % % 0.2 1.2 0.1 Low FINAL [facility] ([facility]), [address], [address] [place] [address] 06/21 CBC w/ auto diff RBC 10*6/u L 4.63 6.08 4.90 FINAL [facility] ([facility]), [address], [address] [place] [address] 06/21 CBC w/ auto diff HGB g/dL 13.7 17.5 16.0 FINAL [facility] ([facility]), [address], [address] [place] [address] 06/21 CBC w/ auto diff HCT % 40.1 51.0 47.5 FINAL [facility] ([facility]), [address], [address] [place] [address] 06/21 CBC w/ auto diff MCV fL 79.0 92.2 96.9 High FINAL [facility] ([facility]), [address], [address] [place] [address] 06/21 CBC w/ auto diff MCH pg 25.7 32.2 32.7 High FINAL [facility] ([facility]), [address], [address] [facility] [address] 06/21 CBC w/ auto diff MCHC g/dL 32.3 36.5 33.7 FINAL [facility] ([facility]), [address], [address] [facility] [address] 06/21 CBC w/ auto diff RDW-C V, % % 11.6 14.4 14.0 FINAL [facility] ([facility]), [address], [address] [facility] [address] 06/21 CBC w/ auto diff PLT 10*3/u L 163.0 337.0 185.0 FINAL [facility] ([facility]), [address], [address] [facility] [address] 07/23 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
--- OUTSIDE RECORDS SUMMARY | 2025-10-19 17:01 | XMS_ITS ---
Author Name Interface, [id number] lity Address [address] [place] [address] Organization [facility] Address [address] [place] [address] Allergies and Adverse Reactions Medication/Group Name Reaction [...] 9.1 High FINAL Marcelo Olson B&Whole Blood [facility] ([facility]), [address], [address] [place] [address] 07/20 CBC w/ auto diff Cristobal # (ANC) 10*3/u L 1.78 5.38 4.47 FINAL Marcelo Olson B&Whole Blood [facility] ([facility]), [address], [address] [facility] [place] Count includes the [facility] 07/20 CBC w/ auto diff LY # 10*3/u L 1.32 3.57 3.40 FINAL Marcelo Olson B&Whole Blood [facility] ([facility]), [address], [address] [place], [place] [id number] 07/20 CBC w/ auto diff MO # 10*3/u L 0.3 0.82 0.80 FINAL Marcelo Olson B&Whole Blood [facility] ([facility]), [address], [place] [facility] [place] [address] 07/20 CBC w/ auto diff EO # 10*3/u lL 0.04 0.54 0.38 FINAL Marcelo Olson B&Whole Blood [facility] ([facility]), [address], [place] [facility] [address] 07/20 CBC w/ auto diff BA # 10*3/u L 0.01 0.08 0.03 FINAL Marcelo Funez&Whole Blood [facility] ([facility]), [address], [address] [place] [address] 07/20 CBC w/ auto diff Cristobal % % 34.0 67.9 49.3 FINAL Marcelo Herms B&Whole Blood [facility] ([facility]), [address], [address] [place] [address] 07/20 CBC w/ auto diff LY % % 21.8 53.1 37.4 FINAL Marcelo Herms B&Whole Blood [facility] ([facility]), [address], [address] [place] [address] 07/20 CBC w/ auto diff MO % % 5.3 12.2 8.8 FINAL Marcelo Herms B&Whole Blood [facility] ([facility]), [address], [address] [place] [address] 07/20 CBC w/ auto diff EO % % 0.8 7.0 4.2 FINAL Marcelo Herms B&Whole Blood [facility] (T), [address], [address] [place] [address] 07/20 CBC w/ auto diff BA % % 0.2 1.2 0.3 FINAL Marcelo Herms B&Whole Blood [facility] ([facility]), [address], [address] [place] [address] 07/20 CBC w/ auto diff RBC 10*6/u L 4.63 6.08 5.60 FINAL Marcelo Herms B&Whole Blood [facility] (T), [address], [address] [place] [address] 07/20 CBC w/ auto diff HGB g/dL 13.7 17.5 18.2 High FINAL Marcelo Herms B&Whole Blood [facility] ([facility]), [address], [address] [place] [address] 07/20 CBC w/ auto diff HCT % 40.1 51.0 52.8 High FINAL Marcelo Herms B&Whole Blood [facility] ([facility]), [address], [address] [place] [address] 07/20 CBC w/ auto diff MCV fL 79.0 92.2 94.3 High FINAL Marcelo Herms B&Whole Blood [facility] ([facility]), [address], [address] [place] [address] 07/20 CBC w/ auto diff MCH pg 25.7 32.2 32.5 High FINAL Marcelo Herms B&Whole Blood [facility] ([facility]), [address], [address] [place] [address] 07/20 CBC w/ auto diff MCHC g/dL 32.3 36.5 34.5 FINAL Marcelo Herms B&Whole Blood [facility] ([facility]), [address], [address] [place] [address] 07/20 CBC w/ auto diff RDW-C V, % % 11.6 14.4 12.5 FINAL Marcelo Herms B&Whole Blood [facility] ([facility]), [address], [address] [place] [address] 07/20 CBC w/ auto diff PLT 10*3/u L 163.0 337.0 160.0 Low FINAL Marcelo Herms B&Whole Blood [facility] ([facility]), [address], [address] [place] [address] 11/09 CBC w/ auto diff WBC 10*3/u [...] Blood 5 02/12 Lab Repor t See 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 installer d 02/15 CBC w/ auto diff WBC 10*3/u L 4.2 9.1 8.8 FINAL Marcelo Olson B&Whole Blood [facility] ([facility]), [address], [address] [place] [address] 02/15 CBC w/ auto diff Cristobal # (ANC) 10*3/u L 1.78 5.38 4.12 FINAL Marcelo Mahmoods B&Whole Blood [facility] ([facility]), [address], [place] [facility] [address] 02/15 CBC w/ auto diff LY # 10*3/u L 1.32 3.57 3.32 FINAL Marcelo Mahmoods B&Whole Blood [facility] ([facility]), [address], [place] [facility] [address] 02/15 CBC w/ auto diff MO # 10*3/u L 0.3 0.82 0.96 High FINAL Marcelo Mahmoods B&Whole Blood [facility] ([facility]), [address], [place] [facility] [address] 02/15 CBC w/ auto diff EO # 10*3/u lL 0.04 0.54 0.36 FINAL Marcelo Mahmoods B&Whole Blood [facility] (T), [address], [place] [facility] [address] 02/15 CBC w/ auto diff BA # 10*3/u L 0.01 0.08 0.04 FINAL Marcelo Mahmoods B&Whole Blood [facility] ([facility]), [address], [place] [facility] [address] 02/15 CBC w/ auto diff Cristobal % % 34.0 67.9 46.8 FINAL Marcelo Mahmoods B&Whole Blood [facility] ([facility]), [address], [address] [facility] [place] Count includes the [facility] 02/15 CBC w/ auto diff LY % % 21.8 53.1 37.7 FINAL Marcelo Mahmoods B&Whole Blood [facility] ([facility]), [address], [place] [facility] [address] 02/15 CBC w/ auto diff MO % % 5.3 12.2 10.9 FINAL Marcelo Mahmoods B&Whole Blood [facility] ([facility]), [address], [place] [facility] [address] 02/15 CBC w/ auto diff EO % % 0.8 7.0 4.1 FINAL Marcelo Mahmoods B&Whole Blood [facility] ([facility]), [address], [place] [facility] [address] 02/15 CBC w/ auto diff BA % % 0.2 1.2 0.5 FINAL Marcelo Mahmoods B&Whole Blood [facility] ([facility]), [address], [place] [facility] [address] 02/15 CBC w/ auto diff RBC 10*6/u L 4.63 6.08 5.33 FINAL Marcelo Olson B&Whole Blood [facility] ([facility]), [address], [address] [facility] [place] Count includes the [facility] 02/15 CBC w/ auto diff HGB g/dL 13.7 17.5 17.4 FINAL Marcelo Olson B&Whole Blood [facility] ([facility]), [address], [address] [facility] [place] Count includes the [facility] 02/15 CBC w/ auto diff HCT % 40.1 51.0 50.4 FINAL Marcelo Olson B&Whole Blood [facility] ([facility]), [address], [address] [place] [address] 02/15 CBC w/ auto diff MCV fL 79.0 92.2 94.6 High FINAL Marcelo Mahmoods B&Whole Blood [facility] ([facility]), [address], [address] [place] [address] 02/15 CBC w/ auto diff MCH pg 25.7 32.2 32.6 High FINAL Marcelo Olson B&Whole Blood [facility] ([facility]), [address], [address] [place] [address] 02/15 CBC w/ auto diff MCHC g/dL 32.3 36.5 34.5 FINAL Marcelo Olson B&Whole Blood [facility] ([facility]), [address], [address] [place] [address] 02/15 CBC w/ auto diff RDW-C V, % % 11.6 14.4 14.0 FINAL Marcelo Olson B&Whole Blood [facility] ([facility]), [address], [address] [facility] [place] Count includes the [facility] 02/15 CBC w/ auto diff PLT 10*3/u L 163.0 337.0 172.0 FINAL Marcelo Mahmoods B&Whole Blood [facility] ([facility]), [address], [place] [facility] [address] 05/31 CBC w/ auto diff WBC 10*3/u L 4.2 9.1 10.4 High FINAL Marcelo Mahmoods B&Whole Blood [facility] ([facility]), [address], [address] [facility] [place] Count includes the [facility] 05/31 CBC w/ auto diff Cristobal # (ANC) 10*3/u L 1.78 5.38 5.26 FINAL Marcelo Olson B&Whole Blood [facility] (T), [address], [address] [place] [address] 05/31 CBC w/ auto diff LY # 10*3/u L 1.32 3.57 3.84 High FINAL Marcelo Olson B&Whole Blood [facility] (T), [address], [address] [place] [address] 05/31 CBC w/ auto diff MO # 10*3/u L 0.3 0.82 0.94 High FINAL Marcelo Olson B&Whole Blood [facility] (T), [address], [address] [place] [address] 05/31 CBC w/ auto diff EO # 10*3/u lL 0.04 0.54 0.30 FINAL Marcelo Olson B&Whole Blood [facility] (T), [address], [address] [place] [address] 05/31 CBC w/ auto diff BA # 10*3/u L 0.01 0.08 0.03 FINAL Marcelo Olson B&Whole Blood [facility] (T), [address], [address] [place] [address] 05/31 CBC w/ auto diff Cristobal % % 34.0 67.9 50.7 FINAL Marcelo Olson B&Whole Blood [facility] (T), [address], [address] [place] [address] 05/31 CBC w/ auto diff LY % % 21.8 53.1 37.0 FINAL Marcelo Olson B&Whole Blood [facility] ([facility]), [address], [address] [place] [address] 05/31 CBC w/ auto diff MO % % 5.3 12.2 9.1 FINAL Marcelo Mahmoods B&Whole Blood [facility] (T), [address], [address] [place] [address] 05/31 CBC w/ auto diff EO % % 0.8 7.0 2.9 FINAL Marcelo Mahmoods B&Whole Blood [facility] ([facility]), [address], [address] [place] [address] 05/31 CBC w/ auto diff BA % % 0.2 1.2 0.3 FINAL Marcelo Mahmoods B&Whole Blood [facility] ([facility]), [address], [address] [place] [address] 05/31 CBC w/ auto diff RBC 10*6/u L 4.63 6.08 5.01 FINAL Marcelo Mahmoods B&Whole Blood [facility] ([facility]), [address], [address] [place] [address] 05/31 CBC w/ auto diff HGB g/dL 13.7 17.5 16.4 FINAL Marcelo Mahmoods B&Whole Blood [facility] ([facility]), [address], [address] [place] [address] 05/31 CBC w/ auto diff HCT % 40.1 51.0 47.5 FINAL Marcelo Mahmoods B&Whole Blood [facility] ([facility]), [address], [address] [place] [address] 05/31 CBC w/ auto diff MCV fL 79.0 92.2 94.8 High FINAL Marcelo Mahmoods B&Whole Blood [facility] ([facility]), [address], [address] [place] [address] 05/31 CBC w/ auto diff MCH pg 25.7 32.2 32.7 High FINAL [facility] B&Whole Blood [facility] ([facility]), [address], [address] [place] [address] 05/31 CBC w/ auto diff MCHC g/dL 32.3 36.5 34.5 FINAL Marcelo Mahmoods B&Whole Blood [facility] ([facility]), [address], [address] [place] [address] 05/31 CBC w/ auto diff RDW-C V, % % 11.6 14.4 13.8 FINAL Marcelo Mahmoods B&Whole Blood [facility] ([facility]), [address], [address] [place] [address] 05/31 CBC w/ auto diff PLT 10*3/u L 163.0 337.0 161.0 Low FINAL Marcelo Mahmoods B&Whole Blood [facility] ([facility]), [address], [address] [place] [address] 06/21 CBC w/ auto diff WBC 10*3/u L 4.2 9.1 14.1 High FINAL Marcelo [facility] ([facility]), [address], [address] [place] [address] 06/21 CBC w/ auto diff Cristobal # (ANC) 10*3/u L 1.78 5.38 10.63 High FINAL Marcelo [facility] ([facility]), [address], [address] [place] [address] 06/21 CBC w/ auto diff LY # 10*3/u L 1.32 3.57 2.09 FINAL Marcelo [facility] ([facility]), [address], [address] [place] [address] 06/21 CBC w/ auto diff MO # 10*3/u L 0.3 0.82 1.34 High FINAL Marcelo [facility] ([facility]), [address], [address] [place] [address] 06/21 CBC w/ auto diff EO # 10*3/u lL 0.04 0.54 0.03 Low FINAL Marcelo [facility] ([facility]), [address], [address] [place] [address] 06/21 CBC w/ auto diff BA # 10*3/u L 0.01 0.08 0.02 FINAL Marcelo [facility] ([facility]), [address], [address] [place] [address] 06/21 CBC w/ auto diff Cristobal % % 34.0 67.9 75.4 High FINAL Marcelo [facility] ([facility]), [address], [address] [place] [address] 06/21 CBC w/ auto diff LY % % 21.8 53.1 14.8 Low FINAL Marcelo [facility] ([facility]), [address], [address] [place] [address] 06/21 CBC w/ auto diff MO % % 5.3 12.2 9.5 FINAL Marcelo [facility] ([facility]), [address], [address] [place] [address] 06/21 CBC w/ auto diff EO % % 0.8 7.0 0.2 Low FINAL [facility] ([facility]), [address], [address] [place] [address] 06/21 CBC w/ auto diff BA % % 0.2 1.2 0.1 Low FINAL [facility] ([facility]), [address], [address] [place] [address] 06/21 CBC w/ auto diff RBC 10*6/u L 4.63 6.08 4.90 FINAL [facility] ([facility]), [address], [address] [place] [address] 06/21 CBC w/ auto diff HGB g/dL 13.7 17.5 16.0 FINAL [facility] ([facility]), [address], [address] [place] [address] 06/21 CBC w/ auto diff HCT % 40.1 51.0 47.5 FINAL [facility] ([facility]), [address], [address] [place] [address] 06/21 CBC w/ auto diff MCV fL 79.0 92.2 96.9 High FINAL [facility] ([facility]), [address], [address] [place] [address] 06/21 CBC w/ auto diff MCH pg 25.7 32.2 32.7 High FINAL [facility] ([facility]), [address], [address] [place] [address] 06/21 CBC w/ auto diff MCHC g/dL 32.3 36.5 33.7 FINAL [facility] ([facility]), [address], [address] [place] [address] 06/21 CBC w/ auto diff RDW-C V, % % 11.6 14.4 14.0 FINAL [facility] ([facility]), [address], [address] [place] [address] 06/21 CBC w/ auto diff PLT 10*3/u L 163.0 337.0 185.0 FINAL Marcelo Olson [facility] ([facility]), [address], [address] [facility] [address] 07/23 Lab Repor t See 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 installer d Medications Date Name Route Dose Frequency Instructions Start Date End Date Status Fill Status Indication 12/22 Sitagli ptin-Me tformin Oral 50 mg-1,00 0 mg orally 1.0 2 times per day active 12/22 Aspirin Oral orally 81.0 mg daily active 12/22 Insulin Detemir Subcuta neous 100 unit/mL subcutan eously 36.0 every evening active 12/22 Cyanoco balamin Oral orally 5000.0 mcg daily active 12/22 [place] 3-DHA-E PA-Fish Oil Oral Liquid 1,600 mg-500 [...] Note Print Location: Unknown Date/Time Printed: 10/19/2025 17:01 ([facility]) Patient: VALERIE PUENTES Sex: Male : [...] Selected Billing Code(s): PHLEBOTOMY THERAPEUTIC SEPARATE PROCEDURE (54229) Entered By Barbara Casas RN; Incident to Marcelo Olson MD * Nurse Note for: 09-NOV-19 [facility] Nurse Note Print Location: Unknown Date/Time Printed: 10/19/2025 17:01 ([facility]) Patient: VALERIE PUENTES Sex: Male : [...] Selected Billing Code(s): PHLEBOTOMY THERAPEUTIC SEPARATE PROCEDURE (64260) Entered By Ju Gupta RN; Incident to Marcelo Olson MD * Nurse Note for: 20-JUL-19 [facility] Nurse Note Print Location: Unknown Date/Time Printed: 10/19/2025 17:01 ([facility]) Patient: VALERIE PUENTES Sex: Male : [...] Selected Billing Code(s): PHLEBOTOMY THERAPEUTIC SEPARATE PROCEDURE (50239) Entered By Barbara Garcia RN; Incident to Marcelo Olson MD
--- OUTSIDE RECORDS SUMMARY | 2025-10-19 17:01 | XMS_ITS | CCD ---
Author Name Interface, [id number] lity Address [address] [id number] Organization [facility] Address [address] [place] [id number] Care Team Providers Care Checking Department Supervisor Name Role Phone Whitney HUGHES, Marcelo Munguia [...] Oral orally 25.0 mg daily active 12/22 [place] 3-DHA-E PA-Fish Oil Oral Liquid 1,600 mg-500 [...]
--- OUTSIDE RECORDS SUMMARY | 2025-10-19 17:01 | XMS_ITS ---
Author Name Interface, [id number] lity Address [address] [place] [address] Organization [facility] Address [address] [place] [address] Allergies and Adverse Reactions Medication/Group Name Reaction [...] FINAL Marcelo Olson B&Whole Blood [facility] ([facility]), [address], [address] [place] [address] 02/15 CBC w/ auto diff Cristobal # (ANC) 10*3/u L 1.78 5.38 4.12 FINAL Marcelo Olson B&Whole Blood [facility] ([facility]), [address], [address] [place] [address] 02/15 CBC w/ auto diff LY # 10*3/u L 1.32 3.57 3.32 FINAL Marcelo Olson B&Whole Blood [facility] ([facility]), [address], [address] [place] [address] 02/15 CBC w/ auto diff MO # 10*3/u L 0.3 0.82 0.96 High FINAL Marcelo Olson B&Whole Blood [facility] ([facility]), [address], [address] [place] [address] 02/15 CBC w/ auto diff EO # 10*3/u lL 0.04 0.54 0.36 FINAL Marcelo Olson B&Whole Blood [facility] ([facility]), [address], [address] [place] [address] 02/15 CBC w/ auto diff BA # 10*3/u L 0.01 0.08 0.04 FINAL Marcelo Olson B&Whole Blood [facility] ([facility]), [address], [address] [place] [address] 02/15 CBC w/ auto diff Cristobal % % 34.0 67.9 46.8 FINAL aMrcelo Olson B&Whole Blood [facility] ([facility]), [address], [address] [place] [address] 02/15 CBC w/ auto diff LY % % 21.8 53.1 37.7 FINAL Marcelo Mahmoods B&Whole Blood [facility] ([facility]), [address], Suite [facility] [place] [address] 02/15 CBC w/ auto diff MO % % 5.3 12.2 10.9 FINAL Marcelo Mahmoods B&Whole Blood [facility] ([facility]), [address], Suite [facility] [address] 02/15 CBC w/ auto diff EO % % 0.8 7.0 4.1 FINAL Marcelo Olson B&Whole Blood [facility] ([facility]), [address], Suite [facility] [place] [facility] 02/15 CBC w/ auto diff BA % % 0.2 1.2 0.5 FINAL Marcelo Mahmoods B&Whole Blood [facility] (T), [address], Suite [facility] [place] [facility] 02/15 CBC w/ auto diff RBC 10*6/u L 4.63 6.08 5.33 FINAL Marcelo Mahmoods B&Whole Blood [facility] ([facility]), [address], [address] [facility] [place] [facility] 02/15 CBC w/ auto diff HGB g/dL 13.7 17.5 17.4 FINAL Marcelo Olson B&Whole Blood [facility] ([facility]), [address], Suite [facility] [place] [facility] 02/15 CBC w/ auto diff HCT % 40.1 51.0 50.4 FINAL Marcelo Mahmoods B&Whole Blood [facility] ([facility]), [address], [address] [facility] [place] [facility] 02/15 CBC w/ auto diff MCV fL 79.0 92.2 94.6 High FINAL Marcelo Mahmoods B&Whole Blood [facility] ([facility]), [address], Suite [facility] [place] [address] 02/15 CBC w/ auto diff MCH pg 25.7 32.2 32.6 High FINAL Marcelo Mahmoods B&Whole Blood [facility] ([facility]), [address], Suite [facility] [place] [address] 02/15 CBC w/ auto diff MCHC g/dL 32.3 36.5 34.5 FINAL Marcelo Mahmoods B&Whole Blood [facility] ([facility]), [address], [address] [place] [address] 02/15 CBC w/ auto diff RDW-C V, % % 11.6 14.4 14.0 FINAL Marcelo Mahmoods B&Whole Blood [facility] (T), [address], [address] [place] [address] 02/15 CBC w/ auto diff PLT 10*3/u L 163.0 337.0 172.0 FINAL Marcelo Mahmoods B&Whole Blood [facility] ([facility]), [address], [address] [place] [address] 05/31 CBC w/ auto diff WBC 10*3/u L 4.2 9.1 10.4 High FINAL Marcelo Mahmoods B&Whole Blood [facility] ([facility]), [address], [address] [place] [address] 05/31 CBC w/ auto diff Cristobal # (ANC) 10*3/u L 1.78 5.38 5.26 FINAL Marcelo Mahmoods B&Whole Blood [facility] ([facility]), [address], [address] [place] [address] 05/31 CBC w/ auto diff LY # 10*3/u L 1.32 3.57 3.84 High FINAL Marcelo Mahmoods B&Whole Blood [facility] ([facility]), [address], [address] [place] [address] 05/31 CBC w/ auto diff MO # 10*3/u L 0.3 0.82 0.94 High FINAL Marcelo Mahmoods B&Whole Blood [facility] ([facility]), [address], [address] [place] [address] 05/31 CBC w/ auto diff EO # 10*3/u lL 0.04 0.54 0.30 FINAL Marcelo Mahmoods B&Whole Blood [facility] ([facility]), [address], [address] [place] [address] 05/31 CBC w/ auto diff BA # 10*3/u L 0.01 0.08 0.03 FINAL Marcelo Herms B&Whole Blood [facility] ([facility]), [address], [address] [place] [address] 05/31 CBC w/ auto diff Cristobal % % 34.0 67.9 50.7 FINAL Marcelo Herms B&Whole Blood [facility] ([facility]), [address], Suite [facility] [place] [facility] 05/31 CBC w/ auto diff LY % % 21.8 53.1 37.0 FINAL Marcelo Olson B&Whole Blood [facility] (T), [address], [address] [place] [address] 05/31 CBC w/ auto diff MO % % 5.3 12.2 9.1 FINAL Marcelo Olson B&Whole Blood [facility] (T), [address], [address] [place] [address] 05/31 CBC w/ auto diff EO % % 0.8 7.0 2.9 FINAL Marcelo Olson B&Whole Blood [facility] ([facility]), [address], [address] [place] [address] 05/31 CBC w/ auto diff BA % % 0.2 1.2 0.3 FINAL Marcelo Olson B&Whole Blood [facility] ([facility]), [address], [address] [place] [address] 05/31 CBC w/ auto diff RBC 10*6/u L 4.63 6.08 5.01 FINAL Marcelo Olson B&Whole Blood [facility] ([facility]), [address], [address] [place] [address] 05/31 CBC w/ auto diff HGB g/dL 13.7 17.5 16.4 FINAL Marcelo Olson B&Whole Blood [facility] ([facility]), [address], [address] [place] [address] 05/31 CBC w/ auto diff HCT % 40.1 51.0 47.5 FINAL Marcelo Olson B&Whole Blood [facility] ([facility]), [address], [address] [place] [address] 05/31 CBC w/ auto diff MCV fL 79.0 92.2 94.8 High FINAL Marcelo Olson B&Whole Blood [facility] ([facility]), [address], [address] [place] [address] 05/31 CBC w/ auto diff MCH pg 25.7 32.2 32.7 High FINAL Marcelo Olson B&Whole Blood [facility] ([facility]), [address], [address] [place] [address] 05/31 CBC w/ auto diff MCHC g/dL 32.3 36.5 34.5 FINAL Marcelo [facility] B&Whole Blood [facility] ([facility]), [address], [address] [place] [address] 05/31 CBC w/ auto diff RDW-C V, % % 11.6 14.4 13.8 FINAL Marcelo [facility] B&Whole Blood [facility] ([facility]), [address], [address] [place] [address] 05/31 CBC w/ auto diff PLT 10*3/u L 163.0 337.0 161.0 Low FINAL [facility] B&Whole Blood [facility] ([facility]), [address], [address] [place] [address] 06/21 CBC w/ auto diff WBC 10*3/u L 4.2 9.1 14.1 High FINAL [facility] (T), [address], [address] [place] [address] 06/21 CBC w/ auto diff Cristobal # (ANC) 10*3/u L 1.78 5.38 10.63 High FINAL [facility] ([facility]), [address], [address] [place] [address] 06/21 CBC w/ auto diff LY # 10*3/u L 1.32 3.57 2.09 FINAL [facility] ([facility]), [address], [address] [place], [place] [id number] 06/21 CBC w/ auto diff MO # 10*3/u L 0.3 0.82 1.34 High FINAL [facility] ([facility]), [address], [address] [place], [place] [id number] 06/21 CBC w/ auto diff EO # 10*3/u lL 0.04 0.54 0.03 Low FINAL [facility] ([facility]), [address], [address] [facility] [address] 06/21 CBC w/ auto diff BA # 10*3/u L 0.01 0.08 0.02 FINAL [facility] ([facility]), [address], [address] [place] [address] 06/21 CBC w/ auto diff Cristobal % % 34.0 67.9 75.4 High FINAL Marcelo [facility] ([facility]), [address], [address] [place] [address] 06/21 CBC w/ auto diff LY % % 21.8 53.1 14.8 Low FINAL Marcelo [facility] ([facility]), [address], [address] [place] [address] 06/21 CBC w/ auto diff MO % % 5.3 12.2 9.5 FINAL Marcelo [facility] ([facility]), [address], [address] [place] [address] 06/21 CBC w/ auto diff EO % % 0.8 7.0 0.2 Low FINAL Marcelo [facility] ([facility]), [address], [address] [place] [address] 06/21 CBC w/ auto diff BA % % 0.2 1.2 0.1 Low FINAL Marcelo [facility] ([facility]), [address], [address] [place] [address] 06/21 CBC w/ auto diff RBC 10*6/u L 4.63 6.08 4.90 FINAL Marcelo [facility] ([facility]), [address], [address] [place] [address] 06/21 CBC w/ auto diff HGB g/dL 13.7 17.5 16.0 FINAL Marcelo [facility] ([facility]), [address], [address] [place] [address] 06/21 CBC w/ auto diff HCT % 40.1 51.0 47.5 FINAL Marcelo [facility] ([facility]), [address], [address] [place] [address] 06/21 CBC w/ auto diff MCV fL 79.0 92.2 96.9 High FINAL Marcelo [facility] ([facility]), [address], [address] [place] [address] 06/21 CBC w/ auto diff MCH pg 25.7 32.2 32.7 High FINAL [facility] ([facility]), [address], [address] [facility] [address] 06/21 CBC w/ auto diff MCHC g/dL 32.3 36.5 33.7 FINAL [facility] (T), [address], [address] [facility] [address] 06/21 CBC w/ auto diff RDW-C V, % % 11.6 14.4 14.0 FINAL [facility] (T), [address], [address] [facility] [address] 06/21 CBC w/ auto diff PLT 10*3/u L 163.0 337.0 185.0 FINAL [facility] ([facility]), [address], [address] [facility] [address] 07/23 Lab Repor t See alumni relations coordinator d Medications Date Name Route Dose Frequency Instructions Start Date End Date Status Fill Status Indication 12/22 Sitagli ptin-Me tformin Oral 50 mg-1,00 0 mg orally 1.0 2 times per day active 12/22 Aspirin Oral orally 81.0 mg daily active 12/22 Insulin Detemir Subcuta neous 100 unit/mL subcutan eously 36.0 every evening active 12/22 Cyanoco balamin Oral orally 5000.0 mcg daily active 12/22 Crewe 3-DHA-E PA-Fish Oil Oral Liquid 1,600 mg-500 [...] Print Location: Unknown Date/Time Printed: 10/19/2025 17:01 ([facility]) Patient: VALERIE PUENTES Sex: Male : 1960 [...] Selected Billing Code(s): PHLEBOTOMY THERAPEUTIC SEPARATE PROCEDURE (64722) Entered By Barbara Casas RN; Incident to Marcelo Olson MD
--- OUTSIDE RECORDS SUMMARY | 2025-10-19 17:01 | XMS_ITS ---
Author Name Interface, [id number] lity Address [address] [place] [address] Organization [facility] Address [address] [place] [address] Allergies and Adverse Reactions Medication/Group Name Reaction [...] L 4.2 9.1 14.1 High FINAL Marcelo [facility] ([facility]), [address], [address] [facility] [address] 06/21 CBC w/ auto diff Cristobal # (ANC) 10*3/u L 1.78 5.38 10.63 High FINAL Marcelo [facility] ([facility]), [address], [address] [facility] [address] 06/21 CBC w/ auto diff LY # 10*3/u L 1.32 3.57 2.09 FINAL [facility] ([facility]), [address], [address] [facility] [address] 06/21 CBC w/ auto diff MO # 10*3/u L 0.3 0.82 1.34 High FINAL Marcelo [facility] ([facility]), [address], [address] [place] [address] 06/21 CBC w/ auto diff EO # 10*3/u lL 0.04 0.54 0.03 Low FINAL Marcelo [facility] ([facility]), [address], [address] [place] [address] 06/21 CBC w/ auto diff BA # 10*3/u L 0.01 0.08 0.02 FINAL Marcelo [facility] ([facility]), [address], [address] [place] [address] 06/21 CBC w/ auto diff Cristobal % % 34.0 67.9 75.4 High FINAL Marcelo [facility] ([facility]), [address], [address] [place] [address] 06/21 CBC w/ auto diff LY % % 21.8 53.1 14.8 Low FINAL Marcelo [facility] ([facility]), [address], [address] [place] [address] 06/21 CBC w/ auto diff MO % % 5.3 12.2 9.5 FINAL Marcelo [facility] ([facility]), [address], [address] [place] [address] 06/21 CBC w/ auto diff EO % % 0.8 7.0 0.2 Low FINAL Marcelo [facility] ([facility]), [address], [address] [place] [address] 06/21 CBC w/ auto diff BA % % 0.2 1.2 0.1 Low FINAL Marcelo [facility] ([facility]), [address], [address] [place] [address] 06/21 CBC w/ auto diff RBC 10*6/u L 4.63 6.08 4.90 FINAL Marcelo [facility] ([facility]), [address], [address] [place] [address] 06/21 CBC w/ auto diff HGB g/dL 13.7 17.5 16.0 FINAL [facility] ([facility]), [address], [address] [place] [address] 06/21 CBC w/ auto diff HCT % 40.1 51.0 47.5 FINAL [facility] ([facility]), [address], [address] [place] [address] 06/21 CBC w/ auto diff MCV fL 79.0 92.2 96.9 High FINAL [facility] ([facility]), [address], [address] [place], [place] [address] 06/21 CBC w/ auto diff MCH pg 25.7 32.2 32.7 High FINAL [facility] ([facility]), [address], [address] [place] [address] 06/21 CBC w/ auto diff MCHC g/dL 32.3 36.5 33.7 FINAL [facility] ([facility]), [address], [address] [facility] [address] 06/21 CBC w/ auto diff RDW-C V, % % 11.6 14.4 14.0 FINAL [facility] ([facility]), [address], [address] [facility] [address] 06/21 CBC w/ auto diff PLT 10*3/u L 163.0 337.0 185.0 FINAL [facility] ([facility]), [address], [address] [place], [place] [address] 07/23 Lab 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
--- OUTSIDE RECORDS SUMMARY | 2025-10-19 17:01 | XMS_ITS ---
Author Name Interface, [id number] lity Address [address] [place] [address] Organization [facility] Address [address] [place] [address] Allergies and Adverse Reactions Medication/Group Name Reaction [...] 9.1 8.8 FINAL Marcelo Olson B&Whole Blood [facility] ([facility]), [address], [address] [place] [address] 02/15 CBC w/ auto diff Cristobal # (ANC) 10*3/u L 1.78 5.38 4.12 FINAL Marcelo Olson B&Whole Blood [facility] ([facility]), [address], [address] [place] [address] 02/15 CBC w/ auto diff LY # 10*3/u L 1.32 3.57 3.32 FINAL Marcelo Olson B&Whole Blood [facility] ([facility]), [address], [address] [place] [address] 02/15 CBC w/ auto diff MO # 10*3/u L 0.3 0.82 0.96 High FINAL Marcelo Olson B&Whole Blood [facility] ([facility]), [address], [address] [place] [address] 02/15 CBC w/ auto diff EO # 10*3/u lL 0.04 0.54 0.36 FINAL Marcelo Olson B&Whole Blood [facility] ([facility]), [address], [address] [place] [address] 02/15 CBC w/ auto diff BA # 10*3/u L 0.01 0.08 0.04 FINAL Marcelo Olson B&Whole Blood [facility] ([facility]), [address], [address] [place] [address] 02/15 CBC w/ auto diff Cristobal % % 34.0 67.9 46.8 FINAL Marcelo Olson B&Whole Blood [facility] ([facility]), [address], [address] [place] [address] 02/15 CBC w/ auto diff LY % % 21.8 53.1 37.7 FINAL Marcelo Mahmoods B&Whole Blood [facility] ([facility]), [address], Suite [facility] [place] [address] 02/15 CBC w/ auto diff MO % % 5.3 12.2 10.9 FINAL Marcelo Mahmoods B&Whole Blood [facility] ([facility]), [address], [address] [facility] [place] [address] 02/15 CBC w/ auto diff EO % % 0.8 7.0 4.1 FINAL Marcelo Olson B&Whole Blood [facility] ([facility]), [address], Suite [facility] [place] [facility] 02/15 CBC w/ auto diff BA % % 0.2 1.2 0.5 FINAL Marcelo Mahmoods B&Whole Blood [facility] (T), [address], Suite [facility] [place] [facility] 02/15 CBC w/ auto diff RBC 10*6/u L 4.63 6.08 5.33 FINAL Marcelo Mahmoods B&Whole Blood [facility] (T), [address], Suite [facility] [place] [facility] 02/15 CBC w/ auto diff HGB g/dL 13.7 17.5 17.4 FINAL Marcelo Olson B&Whole Blood [facility] (T), [address], Suite [facility] [place] [facility] 02/15 CBC w/ auto diff HCT % 40.1 51.0 50.4 FINAL Marcelo Mahmoods B&Whole Blood [facility] (T), [address], Suite [facility] [place] [facility] 02/15 CBC w/ auto diff MCV fL 79.0 92.2 94.6 High FINAL Marcelo Mahmoods B&Whole Blood [facility] ([facility]), [address], Suite [facility] [place] [address] 02/15 CBC w/ auto diff MCH pg 25.7 32.2 32.6 High FINAL Marcelo Mahmoods B&Whole Blood [facility] ([facility]), [address], [address] [facility] [place] [address] 02/15 CBC w/ auto diff MCHC g/dL 32.3 36.5 34.5 FINAL Marcelo Mahmoods B&Whole Blood [facility] ([facility]), [address], [address] [place] [address] 02/15 CBC w/ auto diff RDW-C V, % % 11.6 14.4 14.0 FINAL Marcelo Mahmoods B&Whole Blood [facility] (T), [address], [address] [place] [address] 02/15 CBC w/ auto diff PLT 10*3/u L 163.0 337.0 172.0 FINAL Marcelo Mahmoods B&Whole Blood [facility] ([facility]), [address], [address] [place] [address] 05/31 CBC w/ auto diff WBC 10*3/u L 4.2 9.1 10.4 High FINAL Marcelo Mahmoods B&Whole Blood [facility] ([facility]), [address], [address] [place] [address] 05/31 CBC w/ auto diff Cristobal # (ANC) 10*3/u L 1.78 5.38 5.26 FINAL Marcelo Mahmoods B&Whole Blood [facility] ([facility]), [address], [address] [place] [address] 05/31 CBC w/ auto diff LY # 10*3/u L 1.32 3.57 3.84 High FINAL Marcelo Mahmoods B&Whole Blood [facility] ([facility]), [address], [address] [place] [address] 05/31 CBC w/ auto diff MO # 10*3/u L 0.3 0.82 0.94 High FINAL Marcelo Mahmoods B&Whole Blood [facility] ([facility]), [address], [address] [place] [address] 05/31 CBC w/ auto diff EO # 10*3/u lL 0.04 0.54 0.30 FINAL Marcelo Mahmoods B&Whole Blood [facility] ([facility]), [address], [address] [place] [address] 05/31 CBC w/ auto diff BA # 10*3/u L 0.01 0.08 0.03 FINAL Marcelo Herms B&Whole Blood [facility] ([facility]), [address], [address] [place] [address] 05/31 CBC w/ auto diff Cristobal % % 34.0 67.9 50.7 FINAL Marcelo Herms B&Whole Blood [facility] (T), [address], Suite [facility] [place] [facility] 05/31 CBC w/ auto diff LY % % 21.8 53.1 37.0 FINAL Marcelo Olson B&Whole Blood [facility] (T), [address], [address] [place] [address] 05/31 CBC w/ auto diff MO % % 5.3 12.2 9.1 FINAL Marcelo Olson B&Whole Blood [facility] (T), [address], [address] [place] [address] 05/31 CBC w/ auto diff EO % % 0.8 7.0 2.9 FINAL Marcelo Olson B&Whole Blood [facility] (T), [address], [address] [place] [address] 05/31 CBC w/ auto diff BA % % 0.2 1.2 0.3 FINAL Marcelo Olson B&Whole Blood [facility] (T), [address], [address] [place] [address] 05/31 CBC w/ auto diff RBC 10*6/u L 4.63 6.08 5.01 FINAL Marcelo Olson B&Whole Blood [facility] (T), [address], [address] [place] [address] 05/31 CBC w/ auto diff HGB g/dL 13.7 17.5 16.4 FINAL Marcelo Olson B&Whole Blood [facility] (T), [address], [address] [place] [address] 05/31 CBC w/ auto diff HCT % 40.1 51.0 47.5 FINAL Marcelo Olson B&Whole Blood [facility] (T), [address], [address] [place] [address] 05/31 CBC w/ auto diff MCV fL 79.0 92.2 94.8 High FINAL Marcelo Olson B&Whole Blood [facility] (T), [address], [address] [place] [address] 05/31 CBC w/ auto diff MCH pg 25.7 32.2 32.7 High FINAL Marcelo Olson B&Whole Blood [facility] (T), [address], [address] [place] [address] 05/31 CBC w/ auto diff MCHC g/dL 32.3 36.5 34.5 FINAL Marcelo [facility] B&Whole Blood [facility] ([facility]), [address], [address] [place] [address] 05/31 CBC w/ auto diff RDW-C V, % % 11.6 14.4 13.8 FINAL Marcelo [facility] B&Whole Blood [facility] ([facility]), [address], [address] [place] [address] 05/31 CBC w/ auto diff PLT 10*3/u L 163.0 337.0 161.0 Low FINAL [facility] B&Whole Blood [facility] ([facility]), [address], [address] [place] [address] 06/21 CBC w/ auto diff WBC 10*3/u L 4.2 9.1 14.1 High FINAL [facility] (T), [address], [address] [place] [address] 06/21 CBC w/ auto diff Cristobal # (ANC) 10*3/u L 1.78 5.38 10.63 High FINAL [facility] (T), [address], [address] [place] [address] 06/21 CBC w/ auto diff LY # 10*3/u L 1.32 3.57 2.09 FINAL [facility] (T), [address], [address] [place], [place] [id number] 06/21 CBC w/ auto diff MO # 10*3/u L 0.3 0.82 1.34 High FINAL [facility] ([facility]), [address], [address] [place], [place] [id number] 06/21 CBC w/ auto diff EO # 10*3/u lL 0.04 0.54 0.03 Low FINAL [facility] ([facility]), [address], [address] [facility] [address] 06/21 CBC w/ auto diff BA # 10*3/u L 0.01 0.08 0.02 FINAL [facility] ([facility]), [address], [address] [place] [address] 06/21 CBC w/ auto diff Cristobal % % 34.0 67.9 75.4 High FINAL Marcelo [facility] ([facility]), [address], [address] [place] [address] 06/21 CBC w/ auto diff LY % % 21.8 53.1 14.8 Low FINAL Marcelo [facility] ([facility]), [address], [address] [place] [address] 06/21 CBC w/ auto diff MO % % 5.3 12.2 9.5 FINAL Marcelo [facility] ([facility]), [address], [address] [place] [address] 06/21 CBC w/ auto diff EO % % 0.8 7.0 0.2 Low FINAL Marcelo [facility] ([facility]), [address], [address] [place] [address] 06/21 CBC w/ auto diff BA % % 0.2 1.2 0.1 Low FINAL Marcelo [facility] ([facility]), [address], [address] [place] [address] 06/21 CBC w/ auto diff RBC 10*6/u L 4.63 6.08 4.90 FINAL Marcelo [facility] ([facility]), [address], [address] [place] [address] 06/21 CBC w/ auto diff HGB g/dL 13.7 17.5 16.0 FINAL Marcelo [facility] ([facility]), [address], [address] [place] [address] 06/21 CBC w/ auto diff HCT % 40.1 51.0 47.5 FINAL Marcelo [facility] ([facility]), [address], [address] [place] [address] 06/21 CBC w/ auto diff MCV fL 79.0 92.2 96.9 High FINAL Marcelo [facility] ([facility]), [address], [address] [place] [address] 06/21 CBC w/ auto diff MCH pg 25.7 32.2 32.7 High FINAL [facility] ([facility]), [address], [address] [facility] [address] 06/21 CBC w/ auto diff MCHC g/dL 32.3 36.5 33.7 FINAL [facility] (T), [address], [address] [facility] [address] 06/21 CBC w/ auto diff RDW-C V, % % 11.6 14.4 14.0 FINAL [facility] (T), [address], [address] [facility] [address] 06/21 CBC w/ auto diff PLT 10*3/u L 163.0 337.0 185.0 FINAL [facility] ([facility]), [address], [address] [facility] [address] 07/23 Lab Repor t See 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.] Urinary Changes , Bleeding . Entered By Barabra Casas RN on 15:31 IV Access/Lab Draw [...] Selected Billing Code(s): PHLEBOTOMY THERAPEUTIC SEPARATE PROCEDURE (65140) Entered By Barbara Casas RN; Incident to Marcelo Olson MD
--- OUTSIDE RECORDS SUMMARY | 2025-10-19 17:01 | XMS_ITS ---
Author Name Interface, [id number] lity Address [address] [place] [address] Organization [facility] Address [address] [place] [address] Allergies and Adverse Reactions Medication/Group Name Reaction [...] 9.1 High FINAL Marcelo Olson B&Whole Blood Formerly [facility] ([facility]), [address], [address] [place] [address] 07/20 CBC w/ auto diff Cristobal # (ANC) 10*3/u L 1.78 5.38 4.47 FINAL Marcelo Olson B&Whole Blood Formerly [facility] ([facility]), [address], Suite [facility] [place] [facility] 07/20 CBC w/ auto diff LY # 10*3/u L 1.32 3.57 3.40 FINAL Marcelo Olson B&Whole Blood Formerly [facility] ([facility]), [address], [address] [place], [place] [id number] 07/20 CBC w/ auto diff MO # 10*3/u L 0.3 0.82 0.80 FINAL Marcelo Olson B&Whole Blood Formerly [facility] ([facility]), [address], Suite [facility] [place] [address] 07/20 CBC w/ auto diff EO # 10*3/u lL 0.04 0.54 0.38 FINAL Marcelo Olson B&Whole Blood Formerly [facility] ([facility]), [address], [address] [facility] [place] [address] 07/20 CBC w/ auto diff BA # 10*3/u L 0.01 0.08 0.03 FINAL Marcelo Funez&Whole Blood [facility] (T), [address], [address] [place] [address] 07/20 CBC w/ auto diff Cristobal % % 34.0 67.9 49.3 FINAL Marcelo Herms B&Whole Blood [facility] ([facility]), [address], [address] [place] [address] 07/20 CBC w/ auto diff LY % % 21.8 53.1 37.4 FINAL Marcelo Herms B&Whole Blood [facility] (T), [address], [address] [place] [address] 07/20 CBC w/ auto diff MO % % 5.3 12.2 8.8 FINAL Marcelo Herms B&Whole Blood [facility] (T), [address], [address] [place] [address] 07/20 CBC w/ auto diff EO % % 0.8 7.0 4.2 FINAL Marcelo Herms B&Whole Blood Formerly [facility] (T), [address], [address] [place] [address] 07/20 CBC w/ auto diff BA % % 0.2 1.2 0.3 FINAL Marcelo Herms B&Whole Blood [facility] (T), [address], [address] [place] [address] 07/20 CBC w/ auto diff RBC 10*6/u L 4.63 6.08 5.60 FINAL Marcelo Herms B&Whole Blood Formerly [facility] (T), [address], [address] [place] [address] 07/20 CBC w/ auto diff HGB g/dL 13.7 17.5 18.2 High FINAL Marcelo Herms B&Whole Blood [facility] (T), [address], [address] [place] [address] 07/20 CBC w/ auto diff HCT % 40.1 51.0 52.8 High FINAL Marcelo Herms B&Whole Blood [facility] (T), [address], [address] [place] [address] 07/20 CBC w/ auto diff MCV fL 79.0 92.2 94.3 High FINAL Marcelo Herms B&Whole Blood [facility] ([facility]), [address], [address] [place] [address] 07/20 CBC w/ auto diff MCH pg 25.7 32.2 32.5 High FINAL Marcelo Herms B&Whole Blood Formerly [facility] ([facility]), [address], [address] [place] [address] 07/20 CBC w/ auto diff MCHC g/dL 32.3 36.5 34.5 FINAL Marcelo Herms B&Whole Blood Formerly [facility] ([facility]), [address], [address] [place] [address] 07/20 CBC w/ auto diff RDW-C V, % % 11.6 14.4 12.5 FINAL Marcelo Herms B&Whole Blood Formerly [facility] ([facility]), [address], [address] [place] [address] 07/20 CBC w/ auto diff PLT 10*3/u L 163.0 337.0 160.0 Low FINAL Marcelo Herms B&Whole Blood Formerly [facility] ([facility]), [address], [address] [place] [address] 11/09 CBC w/ auto diff WBC 10*3/u [...] Blood 5 02/12 Lab Repor t See senior project architect d 02/15 CBC w/ auto diff WBC 10*3/u L 4.2 9.1 8.8 FINAL Marcelo Olson B&Whole Blood Formerly [facility] ([facility]), [address], [address] [place] [address] 02/15 CBC w/ auto diff Cristobal # (ANC) 10*3/u L 1.78 5.38 4.12 FINAL Marcelo Mahmoods B&Whole Blood [facility] ([facility]), [address], [address] [facility] [place] [address] 02/15 CBC w/ auto diff LY # 10*3/u L 1.32 3.57 3.32 FINAL Marcelo Mahmoods B&Whole Blood [facility] ([facility]), [address], [address] [facility] [place] [address] 02/15 CBC w/ auto diff MO # 10*3/u L 0.3 0.82 0.96 High FINAL Marcelo Mahmoods B&Whole Blood [facility] ([facility]), [address], [address] [facility] [place] [address] 02/15 CBC w/ auto diff EO # 10*3/u lL 0.04 0.54 0.36 FINAL Marcelo Mahmoods B&Whole Blood [facility] ([facility]), [address], [address] [facility] [place] [address] 02/15 CBC w/ auto diff BA # 10*3/u L 0.01 0.08 0.04 FINAL Marcelo Mahmoods B&Whole Blood [facility] ([facility]), [address], [address] [facility] [place] [address] 02/15 CBC w/ auto diff Cristobal % % 34.0 67.9 46.8 FINAL Marcelo Mahmoods B&Whole Blood [facility] ([facility]), [address], [address] [facility] [place] [facility] 02/15 CBC w/ auto diff LY % % 21.8 53.1 37.7 FINAL Marcelo Mahmoods B&Whole Blood [facility] ([facility]), [address], [address] [facility] [place] [address] 02/15 CBC w/ auto diff MO % % 5.3 12.2 10.9 FINAL Marcelo Mahmoods B&Whole Blood [facility] ([facility]), [address], [address] [facility] [place] [address] 02/15 CBC w/ auto diff EO % % 0.8 7.0 4.1 FINAL Marcelo Mahmoods B&Whole Blood [facility] ([facility]), [address], [address] [facility] [place] [address] 02/15 CBC w/ auto diff BA % % 0.2 1.2 0.5 FINAL Marcelo Mahmoods B&Whole Blood [facility] ([facility]), [address], [address] [facility] [place] [address] 02/15 CBC w/ auto diff RBC 10*6/u L 4.63 6.08 5.33 FINAL Marcelo Olson B&Whole Blood Formerly [facility] ([facility]), [address], [address] [facility] [place] [facility] 02/15 CBC w/ auto diff HGB g/dL 13.7 17.5 17.4 FINAL Marcelo Olson B&Whole Blood Formerly [facility] ([facility]), [address], [address] [facility] [place] [facility] 02/15 CBC w/ auto diff HCT % 40.1 51.0 50.4 FINAL Marcelo Olson B&Whole Blood Formerly [facility] ([facility]), [address], [address] [place] [address] 02/15 CBC w/ auto diff MCV fL 79.0 92.2 94.6 High FINAL Marcelo Mahmoods B&Whole Blood Formerly [facility] ([facility]), [address], [address] [place] [address] 02/15 CBC w/ auto diff MCH pg 25.7 32.2 32.6 High FINAL Marcelo Olson B&Whole Blood Formerly [facility] ([facility]), [address], [address] [place] [address] 02/15 CBC w/ auto diff MCHC g/dL 32.3 36.5 34.5 FINAL Marcelo Olson B&Whole Blood Formerly [facility] ([facility]), [address], [address] [place] [address] 02/15 CBC w/ auto diff RDW-C V, % % 11.6 14.4 14.0 FINAL Marcelo Olson B&Whole Blood Formerly [facility] ([facility]), [address], [address] [facility] [place] [facility] 02/15 CBC w/ auto diff PLT 10*3/u L 163.0 337.0 172.0 FINAL Marcelo Mahmoods B&Whole Blood Formerly [facility] ([facility]), [address], [address] [facility] [place] [address] 05/31 CBC w/ auto diff WBC 10*3/u L 4.2 9.1 10.4 High FINAL Marcelo Mahmoods B&Whole Blood Formerly [facility] ([facility]), [address], [address] [facility] [place] [facility] 05/31 CBC w/ auto diff Cristobal # (ANC) 10*3/u L 1.78 5.38 5.26 FINAL Marcelo Olson B&Whole Blood Formerly [facility] (T), [address], [address] [place] [address] 05/31 CBC w/ auto diff LY # 10*3/u L 1.32 3.57 3.84 High FINAL Marcelo Olson B&Whole Blood Formerly [facility] (T), [address], [address] [place] [address] 05/31 CBC w/ auto diff MO # 10*3/u L 0.3 0.82 0.94 High FINAL Marcelo Olson B&Whole Blood Formerly [facility] ([facility]), [address], [address] [place] [address] 05/31 CBC w/ auto diff EO # 10*3/u lL 0.04 0.54 0.30 FINAL Marcelo Olson B&Whole Blood Formerly [facility] ([facility]), [address], [address] [place] [address] 05/31 CBC w/ auto diff BA # 10*3/u L 0.01 0.08 0.03 FINAL Marcelo Olson B&Whole Blood Formerly [facility] ([facility]), [address], [address] [place] [address] 05/31 CBC w/ auto diff Cristobal % % 34.0 67.9 50.7 FINAL Marcelo Olson B&Whole Blood Formerly [facility] (T), [address], [address] [place] [address] 05/31 CBC w/ auto diff LY % % 21.8 53.1 37.0 FINAL Marcelo Olson B&Whole Blood [facility] (T), [address], [address] [place] [address] 05/31 CBC w/ auto diff MO % % 5.3 12.2 9.1 FINAL Marcelo Mahmoods B&Whole Blood Formerly [facility] (T), [address], [address] [place] [address] 05/31 CBC w/ auto diff EO % % 0.8 7.0 2.9 FINAL Marcelo Mahmoods B&Whole Blood [facility] ([facility]), [address], [address] [place] [address] 05/31 CBC w/ auto diff BA % % 0.2 1.2 0.3 FINAL Marcelo Mahmoods B&Whole Blood Formerly [facility] ([facility]), [address], [address] [place] [address] 05/31 CBC w/ auto diff RBC 10*6/u L 4.63 6.08 5.01 FINAL Marcelo Mahmoods B&Whole Blood Formerly [facility] ([facility]), [address], [address] [place] [address] 05/31 CBC w/ auto diff HGB g/dL 13.7 17.5 16.4 FINAL Marcelo Mahmoods B&Whole Blood Formerly [facility] ([facility]), [address], [address] [place] [address] 05/31 CBC w/ auto diff HCT % 40.1 51.0 47.5 FINAL Marcelo Mahmoods B&Whole Blood Formerly [facility] ([facility]), [address], [address] [place] [address] 05/31 CBC w/ auto diff MCV fL 79.0 92.2 94.8 High FINAL Marcelo Mahmoods B&Whole Blood Formerly [facility] ([facility]), [address], [address] [place] [address] 05/31 CBC w/ auto diff MCH pg 25.7 32.2 32.7 High FINAL [facility] B&Whole Blood Formerly [facility] ([facility]), [address], [address] [place] [address] 05/31 CBC w/ auto diff MCHC g/dL 32.3 36.5 34.5 FINAL Marcelo Mahmoods B&Whole Blood Formerly [facility] ([facility]), [address], [address] [place] [address] 05/31 CBC w/ auto diff RDW-C V, % % 11.6 14.4 13.8 FINAL Marcelo Mahmoods B&Whole Blood Formerly [facility] ([facility]), [address], [address] [place] [address] 05/31 CBC w/ auto diff PLT 10*3/u L 163.0 337.0 161.0 Low FINAL Marcelo Mahmoods B&Whole Blood Formerly [facility] ([facility]), [address], [address] [place] [address] 06/21 CBC w/ auto diff WBC 10*3/u L 4.2 9.1 14.1 High FINAL Marcelo [facility] ([facility]), [address], [address] [place] [address] 06/21 CBC w/ auto diff Cristobal # (ANC) 10*3/u L 1.78 5.38 10.63 High FINAL Marcelo [facility] ([facility]), [address], [address] [place] [address] 06/21 CBC w/ auto diff LY # 10*3/u L 1.32 3.57 2.09 FINAL Marcelo [facility] ([facility]), [address], [address] [place] [address] 06/21 CBC w/ auto diff MO # 10*3/u L 0.3 0.82 1.34 High FINAL Marcelo [facility] ([facility]), [address], [address] [place] [address] 06/21 CBC w/ auto diff EO # 10*3/u lL 0.04 0.54 0.03 Low FINAL Marcelo [facility] ([facility]), [address], [address] [place] [address] 06/21 CBC w/ auto diff BA # 10*3/u L 0.01 0.08 0.02 FINAL Marcelo [facility] ([facility]), [address], [address] [place] [address] 06/21 CBC w/ auto diff Cristobal % % 34.0 67.9 75.4 High FINAL Marcelo [facility] ([facility]), [address], [address] [place] [address] 06/21 CBC w/ auto diff LY % % 21.8 53.1 14.8 Low FINAL Marcelo [facility] ([facility]), [address], [address] [place] [address] 06/21 CBC w/ auto diff MO % % 5.3 12.2 9.5 FINAL Marcelo [facility] ([facility]), [address], [address] [place] [address] 06/21 CBC w/ auto diff EO % % 0.8 7.0 0.2 Low FINAL [facility] ([facility]), [address], [address] [place] [address] 06/21 CBC w/ auto diff BA % % 0.2 1.2 0.1 Low FINAL [facility] ([facility]), [address], [address] [place] [address] 06/21 CBC w/ auto diff RBC 10*6/u L 4.63 6.08 4.90 FINAL [facility] ([facility]), [address], [address] [place] [address] 06/21 CBC w/ auto diff HGB g/dL 13.7 17.5 16.0 FINAL [facility] ([facility]), [address], [address] [place] [address] 06/21 CBC w/ auto diff HCT % 40.1 51.0 47.5 FINAL [facility] ([facility]), [address], [address] [place] [address] 06/21 CBC w/ auto diff MCV fL 79.0 92.2 96.9 High FINAL [facility] ([facility]), [address], [address] [place] [address] 06/21 CBC w/ auto diff MCH pg 25.7 32.2 32.7 High FINAL [facility] ([facility]), [address], [address] [place] [address] 06/21 CBC w/ auto diff MCHC g/dL 32.3 36.5 33.7 FINAL [facility] ([facility]), [address], [address] [place] [address] 06/21 CBC w/ auto diff RDW-C V, % % 11.6 14.4 14.0 FINAL [facility] ([facility]), [address], [address] [place] [address] 06/21 CBC w/ auto diff PLT 10*3/u L 163.0 337.0 185.0 FINAL Marcelo Olson [facility] Jennifer ([facility]), [address], [address] [address] 07/23 Lab Repor t See senior project architect d Medications Date Name Route Dose Frequency Instructions Start Date End Date Status Fill Status Indication 12/22 Sitagli ptin-Me tformin Oral 50 mg-1,00 0 mg orally 1.0 2 times per day active 12/22 Aspirin Oral orally 81.0 mg daily active 12/22 Insulin Detemir Subcuta neous 100 unit/mL subcutan eously 36.0 every evening active 12/22 Cyanoco balamin Oral orally 5000.0 mcg daily active 12/22 [place] 3-DHA-E PA-Fish Oil Oral Liquid 1,600 mg-500 [...] Print Location: Unknown Date/Time Printed: 10/19/2025 17:01 ([facility]) Patient: VALERIE PUENTES Sex: Male : 1960 [...] Selected Billing Code(s): PHLEBOTOMY THERAPEUTIC SEPARATE PROCEDURE (54770) Entered By Barbara Casas RN; Incident to Marcelo Olson MD * Nurse Note for: 09-NOV-19 [facility] Nurse Note Print Location: Unknown Date/Time Printed: 10/19/2025 17:01 ([facility]) Patient: VALERIE PUENTES Sex: Male : 1960 [...] Selected Billing Code(s): PHLEBOTOMY THERAPEUTIC SEPARATE PROCEDURE (19416) Entered By Ju Gupta RN; Incident to Marcelo Olson MD * Nurse Note for: 20-JUL-19 [facility] Nurse Note Print Location: Unknown Date/Time Printed: 10/19/2025 17:01 ([facility]) Patient: VALERIE PUENTES Sex: Male : 1960 [...] Selected Billing Code(s): PHLEBOTOMY THERAPEUTIC SEPARATE PROCEDURE (51114) Entered By Barbara Garcia RN; Incident to Marcelo Olson MD
--- OUTSIDE RECORDS SUMMARY | 2025-10-19 17:01 | XMS_ITS | CCD ---
Author Name Interface, [id number] lity Address [address] [id number] Organization [facility] Address [address] [place] [id number] Care Team Providers Care Barrel Loader Name Role Phone Whitney HUGHES, Marcelo Munguia [...] Oral orally 25.0 mg daily active 12/22 [place] 3-DHA-E PA-Fish Oil Oral Liquid 1,600 mg-500 [...]
--- OUTSIDE RECORDS SUMMARY | 2025-10-19 17:01 | XMS_ITS ---
Author Name Interface, [id number] lity Address [address] [place] [address] Organization [facility] Address [address] [place] [address] Allergies and Adverse Reactions Medication/Group Name Reaction [...] FINAL Marcelo Olson B&Whole Blood [facility] ([facility]), [address], [address] [place] [address] 02/15 CBC w/ auto diff Cristobal # (ANC) 10*3/u L 1.78 5.38 4.12 FINAL Marcelo Olosn B&Whole Blood [facility] ([facility]), [address] [place] [address] 02/15 CBC w/ auto diff LY # 10*3/u L 1.32 3.57 3.32 FINAL Marcelo Olson B&Whole Blood [facility] ([facility]), [address], [address] [place] [address] 02/15 CBC w/ auto diff MO # 10*3/u L 0.3 0.82 0.96 High FINAL Marcelo Olson B&Whole Blood [facility] ([facility]), [address], [address] [place] [address] 02/15 CBC w/ auto diff EO # 10*3/u lL 0.04 0.54 0.36 FINAL Marcelo Olson B&Whole Blood [facility] ([facility]), [address], [address] [place] [address] 02/15 CBC w/ auto diff BA # 10*3/u L 0.01 0.08 0.04 FINAL Marcelo Olson B&Whole Blood [facility] ([facility]), [address], [address] [place] [address] 02/15 CBC w/ auto diff Cristobal % % 34.0 67.9 46.8 FINAL Marcelo Olson B&Whole Blood [facility] ([facility]), [address], [address] [place] [address] 02/15 CBC w/ auto diff LY % % 21.8 53.1 37.7 FINAL Marcelo Olson B&Whole Blood [facility] (T), [address], [place] [facility] [place] [address] 02/15 CBC w/ auto diff MO % % 5.3 12.2 10.9 FINAL Marcelo Olson B&Whole Blood [facility] (T), [address], [address] [facility] [place] [facility] 02/15 CBC w/ auto diff EO % % 0.8 7.0 4.1 FINAL Marcelo Olson B&Whole Blood [facility] (T), [address], [address] [facility] [place] [facility] 02/15 CBC w/ auto diff BA % % 0.2 1.2 0.5 FINAL Marcelo Olson B&Whole Blood [facility] ([facility]), [address], [address] [facility] [place] [facility] 02/15 CBC w/ auto diff RBC 10*6/u L 4.63 6.08 5.33 FINAL Marcelo Olson B&Whole Blood [facility] ([facility]), [address], [address] [facility] [place] [facility] 02/15 CBC w/ auto diff HGB g/dL 13.7 17.5 17.4 FINAL Marcelo Olson B&Whole Blood [facility] (T), [address], [address] [place] [address] 02/15 CBC w/ auto diff HCT % 40.1 51.0 50.4 FINAL Marcelo Olson B&Whole Blood [facility] (T), [address], [address] [facility] [place] [facility] 02/15 CBC w/ auto diff MCV fL 79.0 92.2 94.6 High FINAL Marcelo Olson B&Whole Blood [facility] ([facility]), [address], [address] [facility] [place] [facility] 02/15 CBC w/ auto diff MCH pg 25.7 32.2 32.6 High FINAL Marcelo Olson B&Whole Blood [facility] (T), [address], [address] [facility] [place] [facility] 02/15 CBC w/ auto diff MCHC g/dL 32.3 36.5 34.5 FINAL Marcelo Mahmoods B&Whole Blood [facility] (T), [address], [address] [facility] [place] [address] 02/15 CBC w/ auto diff RDW-C V, % % 11.6 14.4 14.0 FINAL Marcelo Mahmoods B&Whole Blood [facility] (T), [address], [address] [place] [address] 02/15 CBC w/ auto diff PLT 10*3/u L 163.0 337.0 172.0 FINAL Marcelo Mahmodos B&Whole Blood [facility] ([facility]), [address], [address] [place] [address] 05/31 CBC w/ auto diff WBC 10*3/u L 4.2 9.1 10.4 High FINAL Marcelo Herms B&Whole Blood [facility] (T), [address], [address] [place] [address] 05/31 CBC w/ auto diff Cristobal # (ANC) 10*3/u L 1.78 5.38 5.26 FINAL Marcelo Mahmoods B&Whole Blood [facility] ([facility]), [address], [address] [place] [address] 05/31 CBC w/ auto diff LY # 10*3/u L 1.32 3.57 3.84 High FINAL Marcelo Mahmoods B&Whole Blood [facility] (T), [address], [address] [place] [address] 05/31 CBC w/ auto diff MO # 10*3/u L 0.3 0.82 0.94 High FINAL Marcelo Herms B&Whole Blood [facility] (T), [address], [address] [place] [address] 05/31 CBC w/ auto diff EO # 10*3/u lL 0.04 0.54 0.30 FINAL Marcelo Herms B&Whole Blood [facility] ([facility]), [address], [address] [place] [address] 05/31 CBC w/ auto diff BA # 10*3/u L 0.01 0.08 0.03 FINAL Marcelo Herms B&Whole Blood [facility] ([facility]), [address], [address] [place] [address] 05/31 CBC w/ auto diff Cristobal % % 34.0 67.9 50.7 FINAL Marcelo Herms B&Whole Blood [facility] ([facility]), [address], [place] [facility] [place] [address] 05/31 CBC w/ auto diff LY % % 21.8 53.1 37.0 FINAL Marcelo Olson B&Whole Blood [facility] ([facility]), [address], [address] [facility] [place] [facility] 05/31 CBC w/ auto diff MO % % 5.3 12.2 9.1 FINAL Marcelo Olson B&Whole Blood [facility] ([facility]), [address], [address] [facility] [place] [facility] 05/31 CBC w/ auto diff EO % % 0.8 7.0 2.9 FINAL Marcelo Olson B&Whole Blood [facility] ([facility]), [address], [address] [place] [address] 05/31 CBC w/ auto diff BA % % 0.2 1.2 0.3 FINAL Marcelo Olson B&Whole Blood [facility] (T), [address], [address] [place] [address] 05/31 CBC w/ auto diff RBC 10*6/u L 4.63 6.08 5.01 FINAL Marcelo Olson B&Whole Blood [facility] (T), [address], [address] [place] [address] 05/31 CBC w/ auto diff HGB g/dL 13.7 17.5 16.4 FINAL Marcelo Olson B&Whole Blood [facility] ([facility]), [address], [address] [place] [address] 05/31 CBC w/ auto diff HCT % 40.1 51.0 47.5 FINAL Marcelo Olson B&Whole Blood [facility] ([facility]), [address], [address] [place] [address] 05/31 CBC w/ auto diff MCV fL 79.0 92.2 94.8 High FINAL Marcelo Mahmoods B&Whole Blood [facility] ([facility]), [address], [address] [place] [address] 05/31 CBC w/ auto diff MCH pg 25.7 32.2 32.7 High FINAL Marcelo Mahmoods B&Whole Blood [facility] ([facility]), [address], [address] [place] [address] 05/31 CBC w/ auto diff MCHC g/dL 32.3 36.5 34.5 FINAL [facility] B&Whole Blood [facility] (T), [address], [address] [place] [address] 05/31 CBC w/ auto diff RDW-C V, % % 11.6 14.4 13.8 FINAL [facility] B&Whole Blood [facility] (T), [address], [address] [place] [address] 05/31 CBC w/ auto diff PLT 10*3/u L 163.0 337.0 161.0 Low FINAL [facility] B&Whole Blood [facility] ([facility]), [address], [address] [place] [address] 06/21 CBC w/ auto diff WBC 10*3/u L 4.2 9.1 14.1 High FINAL [facility] ([facility]), [address], [address] [place] [address] 06/21 CBC w/ auto diff Cristobal # (ANC) 10*3/u L 1.78 5.38 10.63 High FINAL [facility] ([facility]), [address], [address] [place] [address] 06/21 CBC w/ auto diff LY # 10*3/u L 1.32 3.57 2.09 FINAL [facility] ([facility]), [address], [address] [place] [address] 06/21 CBC w/ auto diff MO # 10*3/u L 0.3 0.82 1.34 High FINAL [facility] ([facility]), [address], [address] [place] [address] 06/21 CBC w/ auto diff EO # 10*3/u lL 0.04 0.54 0.03 Low FINAL [facility] ([facility]), [address], [address] [place] [address] 06/21 CBC w/ auto diff BA # 10*3/u L 0.01 0.08 0.02 FINAL [facility] ([facility]), [address], [address] [place] [address] 06/21 CBC w/ auto diff Cristobal % % 34.0 67.9 75.4 High FINAL [facility] ([facility]), [address], [address] [place] [address] 06/21 CBC w/ auto diff LY % % 21.8 53.1 14.8 Low FINAL [facility] ([facility]), [address], [address] [place] [address] 06/21 CBC w/ auto diff MO % % 5.3 12.2 9.5 FINAL [facility] ([facility]), [address], [address] [place] [address] 06/21 CBC w/ auto diff EO % % 0.8 7.0 0.2 Low FINAL [facility] ([facility]), [address], [address] [place] [address] 06/21 CBC w/ auto diff BA % % 0.2 1.2 0.1 Low FINAL [facility] ([facility]), [address], [address] [place] [address] 06/21 CBC w/ auto diff RBC 10*6/u L 4.63 6.08 4.90 FINAL [facility] ([facility]), [address], [address] [place] [address] 06/21 CBC w/ auto diff HGB g/dL 13.7 17.5 16.0 FINAL [facility] ([facility]), [address], [address] [place] [address] 06/21 CBC w/ auto diff HCT % 40.1 51.0 47.5 FINAL [facility] ([facility]), [address], [address] [place] [address] 06/21 CBC w/ auto diff MCV fL 79.0 92.2 96.9 High FINAL [facility] ([facility]), [address], [address] [place] [address] 06/21 CBC w/ auto diff MCH pg 25.7 32.2 32.7 High FINAL [facility] ([facility]), [address], [address] [facility] [address] 06/21 CBC w/ auto diff MCHC g/dL 32.3 36.5 33.7 FINAL [facility] ([facility]), [address], [address] [facility] [address] 06/21 CBC w/ auto diff RDW-C V, % % 11.6 14.4 14.0 FINAL [facility] ([facility]), [address], [address] [facility] [address] 06/21 CBC w/ auto diff PLT 10*3/u L 163.0 337.0 185.0 FINAL [facility] ([facility]), [address], [address] [facility] [address] 07/23 Lab Repor t See glass loading equipment tender d Medications Date Name Route Dose Frequency Instructions Start Date End Date Status Fill Status Indication 12/22 Sitagli ptin-Me tformin Oral 50 mg-1,00 0 mg orally 1.0 2 times per day active 12/22 Aspirin Oral orally 81.0 mg daily active 12/22 Insulin Detemir Subcuta neous 100 unit/mL subcutan eously 36.0 every evening active 12/22 Cyanoco balamin Oral orally 5000.0 mcg daily active 12/22 [place] 3-DHA-E PA-Fish Oil Oral Liquid 1,600 mg-500 [...] Print Location: Unknown Date/Time Printed: 10/19/2025 17:01 ([facility]) Patient: VALERIE PUENTES Sex: Male : [...] Selected Billing Code(s): PHLEBOTOMY THERAPEUTIC SEPARATE PROCEDURE (45130) Entered By Barbara Casas RN; Incident to Marcelo Olson MD
--- OUTSIDE RECORDS SUMMARY | 2025-10-19 17:01 | XMS_ITS ---
Author Name Interface, [id number] lity Address [address] [place] [address] Organization [facility] Address [address] [place] [address] Allergies and Adverse Reactions Medication/Group Name Reaction [...] L 4.2 9.1 14.1 High FINAL Marcelo [facility] ([facility]), [address], [address] [facility] [address] 06/21 CBC w/ auto diff Cristobal # (ANC) 10*3/u L 1.78 5.38 10.63 High FINAL Marcelo [facility] ([facility]), [address], [address] [facility] [address] 06/21 CBC w/ auto diff LY # 10*3/u L 1.32 3.57 2.09 FINAL [facility] ([facility]), [address], [address] [facility] [address] 06/21 CBC w/ auto diff MO # 10*3/u L 0.3 0.82 1.34 High FINAL Marcelo [facility] ([facility]), [address], [address] [place] [address] 06/21 CBC w/ auto diff EO # 10*3/u lL 0.04 0.54 0.03 Low FINAL Marcelo [facility] ([facility]), [address], [address] [place] [address] 06/21 CBC w/ auto diff BA # 10*3/u L 0.01 0.08 0.02 FINAL Marcelo [facility] ([facility]), [address], [address] [place] [address] 06/21 CBC w/ auto diff Cristobal % % 34.0 67.9 75.4 High FINAL Marcelo [facility] ([facility]), [address], [address] [place] [address] 06/21 CBC w/ auto diff LY % % 21.8 53.1 14.8 Low FINAL Marcelo [facility] ([facility]), [address], [address] [place] [address] 06/21 CBC w/ auto diff MO % % 5.3 12.2 9.5 FINAL Marcelo [facility] ([facility]), [address], [address] [place] [address] 06/21 CBC w/ auto diff EO % % 0.8 7.0 0.2 Low FINAL Marcelo [facility] ([facility]), [address], [address] [place] [address] 06/21 CBC w/ auto diff BA % % 0.2 1.2 0.1 Low FINAL Marcelo [facility] ([facility]), [address], [address] [place] [address] 06/21 CBC w/ auto diff RBC 10*6/u L 4.63 6.08 4.90 FINAL Marcelo [facility] ([facility]), [address], [address] [place] [address] 06/21 CBC w/ auto diff HGB g/dL 13.7 17.5 16.0 FINAL [facility] ([facility]), [address], [address] [place] [address] 06/21 CBC w/ auto diff HCT % 40.1 51.0 47.5 FINAL [facility] ([facility]), [address], [address] [place] [address] 06/21 CBC w/ auto diff MCV fL 79.0 92.2 96.9 High FINAL [facility] ([facility]), [address], [address] [place], [place] [address] 06/21 CBC w/ auto diff MCH pg 25.7 32.2 32.7 High FINAL [facility] ([facility]), [address], [address] [place] [address] 06/21 CBC w/ auto diff MCHC g/dL 32.3 36.5 33.7 FINAL [facility] ([facility]), [address], [address] [facility] [address] 06/21 CBC w/ auto diff RDW-C V, % % 11.6 14.4 14.0 FINAL [facility] ([facility]), [address], [address] [facility] [address] 06/21 CBC w/ auto diff PLT 10*3/u L 163.0 337.0 185.0 FINAL [facility] ([facility]), [address], [address] [place], [place] [address] 07/23 Lab Repor t See clock repair technician d Medications Date Name Route Dose Frequency Instructions Start Date End Date Status Fill Status Indication 12/22 Sitagli ptin-Me tformin Oral 50 mg-1,00 0 mg orally 1.0 2 times per day active 12/22 Aspirin Oral orally 81.0 mg daily active 12/22 Insulin Detemir Subcuta neous 100 unit/mL subcutan eously 36.0 every evening active 12/22 Cyanoco balamin Oral orally 5000.0 mcg daily active 12/22 [place] 3-DHA-E PA-Fish Oil Oral Liquid 1,600 mg-500 [...]
--- OUTSIDE RECORDS SUMMARY | 2025-10-19 17:01 | XMS_ITS | CCD ---
Author Name Interface, [id number] lity Address [address] [place] [id number] Organization [facility] Address [address] [place] [address] Care Team Providers Care Target Developer Name Role Phone Whitney HUGHES, Marcelo Munguia [...] Oral orally 25.0 mg daily active 12/22 [place] 3-DHA-E PA-Fish Oil Oral Liquid 1,600 mg-500 [...]
--- OUTSIDE RECORDS SUMMARY | 2025-10-19 17:01 | XMS_ITS | CCD ---
Author Name Interface, [id number] lity Address [address] [id number] Organization [facility] Address [address] [place] [id number] Care Team Providers Care Dock Grader Name Role Phone Whitney HUGHES, Marcelo Munguia [...] Oral orally 25.0 mg daily active 12/22 [place] 3-DHA-E PA-Fish Oil Oral Liquid 1,600 mg-500 [...]
--- OUTSIDE RECORDS SUMMARY | 2025-10-19 17:01 | XMS_ITS ---
Author Name Interface, [id number] lity Address [address] [place] [address] Organization [facility] Address [address] [place] [address] Allergies and Adverse Reactions Medication/Group Name Reaction [...] 9.1 8.8 FINAL Marcelo Olson B&Whole Blood [facility] ([facility]), [address], [address] [place] [address] 02/15 CBC w/ auto diff Cristobal # (ANC) 10*3/u L 1.78 5.38 4.12 FINAL Marcelo Olson B&Whole Blood [facility] ([facility]), [address], [address] [place] [address] 02/15 CBC w/ auto diff LY # 10*3/u L 1.32 3.57 3.32 FINAL Marcelo Olson B&Whole Blood [facility] ([facility]), [address], [address] [place] [address] 02/15 CBC w/ auto diff MO # 10*3/u L 0.3 0.82 0.96 High FINAL Marcelo Olson B&Whole Blood [facility] ([facility]), [address], [address] [place] [address] 02/15 CBC w/ auto diff EO # 10*3/u lL 0.04 0.54 0.36 FINAL Marcelo Olson B&Whole Blood [facility] ([facility]), [address], [address] [place] [address] 02/15 CBC w/ auto diff BA # 10*3/u L 0.01 0.08 0.04 FINAL Marcelo Olson B&Whole Blood [facility] ([facility]), [address], [address] [place] [address] 02/15 CBC w/ auto diff Cristobal % % 34.0 67.9 46.8 FINAL Marcelo Olson B&Whole Blood [facility] ([facility]), [address], [address] [place] [address] 02/15 CBC w/ auto diff LY % % 21.8 53.1 37.7 FINAL Marcelo Mahmoods B&Whole Blood [facility] ([facility]), [address], [place] [facility] [place] [address] 02/15 CBC w/ auto diff MO % % 5.3 12.2 10.9 FINAL Marcelo Mahmoods B&Whole Blood [facility] ([facility]), [address], [address] [facility] [place] [address] 02/15 CBC w/ auto diff EO % % 0.8 7.0 4.1 FINAL Marcelo Olson B&Whole Blood [facility] ([facility]), [address], Suite [facility] [place] [facility] 02/15 CBC w/ auto diff BA % % 0.2 1.2 0.5 FINAL Marcelo Mahmoods B&Whole Blood [facility] (T), [address], Suite [facility] [place] [facility] 02/15 CBC w/ auto diff RBC 10*6/u L 4.63 6.08 5.33 FINAL Marcelo Mahmoods B&Whole Blood [facility] ([facility]), [address], Suite [facility] [place] [facility] 02/15 CBC w/ auto diff HGB g/dL 13.7 17.5 17.4 FINAL Marcelo Olson B&Whole Blood [facility] (T), [address], Suite [facility] [place] [facility] 02/15 CBC w/ auto diff HCT % 40.1 51.0 50.4 FINAL Marcelo Mahmoods B&Whole Blood [facility] ([facility]), [address], Suite [facility] [place] [facility] 02/15 CBC w/ auto diff MCV fL 79.0 92.2 94.6 High FINAL Marcelo Mahmoods B&Whole Blood [facility] ([facility]), [address], [address] [facility] [place] [address] 02/15 CBC w/ auto diff MCH pg 25.7 32.2 32.6 High FINAL Marcelo Mahmoods B&Whole Blood [facility] ([facility]), [address], [address] [facility] [place] [address] 02/15 CBC w/ auto diff MCHC g/dL 32.3 36.5 34.5 FINAL Marcelo Mahmoods B&Whole Blood [facility] ([facility]), [address], [address] [place] [address] 02/15 CBC w/ auto diff RDW-C V, % % 11.6 14.4 14.0 FINAL Marcelo Mahmoods B&Whole Blood [facility] (T), [address], [address] [place] [address] 02/15 CBC w/ auto diff PLT 10*3/u L 163.0 337.0 172.0 FINAL Marcelo Mahmoods B&Whole Blood [facility] ([facility]), [address], [address] [place] [address] 05/31 CBC w/ auto diff WBC 10*3/u L 4.2 9.1 10.4 High FINAL Marcelo Mahmoods B&Whole Blood [facility] ([facility]), [address], [address] [place] [address] 05/31 CBC w/ auto diff Cristobal # (ANC) 10*3/u L 1.78 5.38 5.26 FINAL Marcelo Mahmoods B&Whole Blood [facility] ([facility]), [address], [address] [place] [address] 05/31 CBC w/ auto diff LY # 10*3/u L 1.32 3.57 3.84 High FINAL Marcelo Mahmoods B&Whole Blood [facility] ([facility]), [address], [address] [place] [address] 05/31 CBC w/ auto diff MO # 10*3/u L 0.3 0.82 0.94 High FINAL Marcelo Mahmoods B&Whole Blood [facility] ([facility]), [address], [address] [place] [address] 05/31 CBC w/ auto diff EO # 10*3/u lL 0.04 0.54 0.30 FINAL Marcelo Mahmoods B&Whole Blood [facility] ([facility]), [address], [address] [place] [address] 05/31 CBC w/ auto diff BA # 10*3/u L 0.01 0.08 0.03 FINAL Marcelo Herms B&Whole Blood [facility] ([facility]), [address], [address] [place] [address] 05/31 CBC w/ auto diff Cristobal % % 34.0 67.9 50.7 FINAL Marcelo Herms B&Whole Blood [facility] (T), [address], Suite [facility] [place] [facility] 05/31 CBC w/ auto diff LY % % 21.8 53.1 37.0 FINAL Marcelo Olson B&Whole Blood [facility] (T), [address], [address] [place] [address] 05/31 CBC w/ auto diff MO % % 5.3 12.2 9.1 FINAL Marcelo Olson B&Whole Blood [facility] ([facility]), [address], [address] [place] [address] 05/31 CBC w/ auto diff EO % % 0.8 7.0 2.9 FINAL Marcelo Olson B&Whole Blood [facility] (T), [address], [address] [place] [address] 05/31 CBC w/ auto diff BA % % 0.2 1.2 0.3 FINAL Marcelo Olson B&Whole Blood [facility] (T), [address], [address] [place] [address] 05/31 CBC w/ auto diff RBC 10*6/u L 4.63 6.08 5.01 FINAL Marcelo Olson B&Whole Blood [facility] (T), [address], [address] [place] [address] 05/31 CBC w/ auto diff HGB g/dL 13.7 17.5 16.4 FINAL Marcelo Olson B&Whole Blood [facility] ([facility]), [address], [address] [place] [address] 05/31 CBC w/ auto diff HCT % 40.1 51.0 47.5 FINAL Marcelo Olson B&Whole Blood [facility] ([facility]), [address], [address] [place] [address] 05/31 CBC w/ auto diff MCV fL 79.0 92.2 94.8 High FINAL Marcelo Olson B&Whole Blood [facility] ([facility]), [address], [address] [place] [address] 05/31 CBC w/ auto diff MCH pg 25.7 32.2 32.7 High FINAL Marcelo Olson B&Whole Blood [facility] (T), [address], [address] [place] [address] 05/31 CBC w/ auto diff MCHC g/dL 32.3 36.5 34.5 FINAL Marcelo [facility] B&Whole Blood [facility] ([facility]), [address], [address] [place] [address] 05/31 CBC w/ auto diff RDW-C V, % % 11.6 14.4 13.8 FINAL Marcelo [facility] B&Whole Blood [facility] ([facility]), [address], [address] [place] [address] 05/31 CBC w/ auto diff PLT 10*3/u L 163.0 337.0 161.0 Low FINAL [facility] B&Whole Blood [facility] ([facility]), [address], [address] [place] [address] 06/21 CBC w/ auto diff WBC 10*3/u L 4.2 9.1 14.1 High FINAL [facility] (T), [address], [address] [place] [address] 06/21 CBC w/ auto diff Cristobal # (ANC) 10*3/u L 1.78 5.38 10.63 High FINAL [facility] (T), [address], [address] [place] [address] 06/21 CBC w/ auto diff LY # 10*3/u L 1.32 3.57 2.09 FINAL [facility] (T), [address], [address] [place], [place] [id number] 06/21 CBC w/ auto diff MO # 10*3/u L 0.3 0.82 1.34 High FINAL [facility] ([facility]), [address], [address] [place], [place] [id number] 06/21 CBC w/ auto diff EO # 10*3/u lL 0.04 0.54 0.03 Low FINAL [facility] ([facility]), [address], [address] [facility] [address] 06/21 CBC w/ auto diff BA # 10*3/u L 0.01 0.08 0.02 FINAL [facility] ([facility]), [address], [address] [place] [address] 06/21 CBC w/ auto diff Cristobal % % 34.0 67.9 75.4 High FINAL Marcelo [facility] ([facility]), [address], [address] [place] [address] 06/21 CBC w/ auto diff LY % % 21.8 53.1 14.8 Low FINAL Marcelo [facility] ([facility]), [address], [address] [place] [address] 06/21 CBC w/ auto diff MO % % 5.3 12.2 9.5 FINAL Marcelo [facility] ([facility]), [address], [address] [place] [address] 06/21 CBC w/ auto diff EO % % 0.8 7.0 0.2 Low FINAL Marcelo [facility] ([facility]), [address], [address] [place] [address] 06/21 CBC w/ auto diff BA % % 0.2 1.2 0.1 Low FINAL Marcelo [facility] ([facility]), [address], [address] [place] [address] 06/21 CBC w/ auto diff RBC 10*6/u L 4.63 6.08 4.90 FINAL Marcelo [facility] ([facility]), [address], [address] [place] [address] 06/21 CBC w/ auto diff HGB g/dL 13.7 17.5 16.0 FINAL Marcelo [facility] ([facility]), [address], [address] [place] [address] 06/21 CBC w/ auto diff HCT % 40.1 51.0 47.5 FINAL Marcelo [facility] ([facility]), [address], [address] [place] [address] 06/21 CBC w/ auto diff MCV fL 79.0 92.2 96.9 High FINAL Marcelo [facility] ([facility]), [address], [address] [place] [address] 06/21 CBC w/ auto diff MCH pg 25.7 32.2 32.7 High FINAL [facility] ([facility]), [address], [address] [facility] [address] 06/21 CBC w/ auto diff MCHC g/dL 32.3 36.5 33.7 FINAL [facility] (T), [address], [address] [facility] [address] 06/21 CBC w/ auto diff RDW-C V, % % 11.6 14.4 14.0 FINAL [facility] (T), [address], [address] [facility] [address] 06/21 CBC w/ auto diff PLT 10*3/u L 163.0 337.0 185.0 FINAL [facility] ([facility]), [address], [address] [facility] [address] 07/23 Lab Repor t See periodontist d Medications Date Name Route Dose Frequency Instructions Start Date End Date Status Fill Status Indication 12/22 Sitagli ptin-Me tformin Oral 50 mg-1,00 0 mg orally 1.0 2 times per day active 12/22 Aspirin Oral orally 81.0 mg daily active 12/22 Insulin Detemir Subcuta neous 100 unit/mL subcutan eously 36.0 every evening active 12/22 Cyanoco balamin Oral orally 5000.0 mcg daily active 12/22 [place] 3-DHA-E PA-Fish Oil Oral Liquid 1,600 mg-500 [...] Print Location: Unknown Date/Time Printed: 10/19/2025 17:00 (Lauren/[facility]) Patient: VALERIE PUENTES Sex: Male : [...] Selected Billing Code(s): PHLEBOTOMY THERAPEUTIC SEPARATE PROCEDURE (07620) Entered By Barbara Casas RN; Incident to Marcelo Olson MD
--- OUTSIDE RECORDS SUMMARY | 2025-10-19 17:02 | XMS_ITS ---
Author Name Interface, [id number] lity Address [address] [place] [address] Organization [facility] Address [address] [place] [address] Allergies and Adverse Reactions Medication/Group Name Reaction [...] FINAL Marcelo Olson B&Whole Blood [facility] ([facility]), [address], [address] [place] [address] 07/20 CBC w/ auto diff Cristobal # (ANC) 10*3/u L 1.78 5.38 4.47 FINAL Marcelo Olson B&Whole Blood [facility] ([facility]), [address], Suite [facility] [place] [place] [facility] 07/20 CBC w/ auto diff LY # 10*3/u L 1.32 3.57 3.40 FINAL Marcelo Olson B&Whole Blood [facility] ([facility]), [address], [address] [place], [place] [id number] 07/20 CBC w/ auto diff MO # 10*3/u L 0.3 0.82 0.80 FINAL Marcelo Olson B&Whole Blood [facility] ([facility]), [address], Suite [facility] [place] [address] 07/20 CBC w/ auto diff EO # 10*3/u lL 0.04 0.54 0.38 FINAL Marcelo Olson B&Whole Blood [facility] ([facility]), [address], Suite [facility] [place] [address] 07/20 CBC w/ auto diff BA # 10*3/u L 0.01 0.08 0.03 FINAL Marcelo Funez&Whole Blood [facility] ([facility]), [address], [address] [place] [address] 07/20 CBC w/ auto diff Cristobal % % 34.0 67.9 49.3 FINAL Marcelo Herms B&Whole Blood [facility] ([facility]), [address], [address] [place] [address] 07/20 CBC w/ auto diff LY % % 21.8 53.1 37.4 FINAL Marcelo Herms B&Whole Blood [facility] ([facility]), [address], [address] [place] [address] 07/20 CBC w/ auto diff MO % % 5.3 12.2 8.8 FINAL Marcelo Herms B&Whole Blood [facility] ([facility]), [address], [address] [place] [address] 07/20 CBC w/ auto diff EO % % 0.8 7.0 4.2 FINAL Marcelo Herms B&Whole Blood [facility] (T), [address], [address] [place] [address] 07/20 CBC w/ auto diff BA % % 0.2 1.2 0.3 FINAL Marcelo Herms B&Whole Blood [facility] ([facility]), [address], [address] [place] [address] 07/20 CBC w/ auto diff RBC 10*6/u L 4.63 6.08 5.60 FINAL Marcelo Herms B&Whole Blood [facility] (T), [address], [address] [place] [address] 07/20 CBC w/ auto diff HGB g/dL 13.7 17.5 18.2 High FINAL Marcelo Herms B&Whole Blood [facility] ([facility]), [address], [address] [place] [address] 07/20 CBC w/ auto diff HCT % 40.1 51.0 52.8 High FINAL Marcelo Herms B&Whole Blood [facility] ([facility]), [address], [address] [place] [address] 07/20 CBC w/ auto diff MCV fL 79.0 92.2 94.3 High FINAL Marcelo Herms B&Whole Blood [facility] ([facility]), [address], [address] [place] [address] 07/20 CBC w/ auto diff MCH pg 25.7 32.2 32.5 High FINAL Marcelo Herms B&Whole Blood [facility] ([facility]), [address], [address] [place] [address] 07/20 CBC w/ auto diff MCHC g/dL 32.3 36.5 34.5 FINAL Marcelo Herms B&Whole Blood [facility] ([facility]), [address], [address] [place] [address] 07/20 CBC w/ auto diff RDW-C V, % % 11.6 14.4 12.5 FINAL Marcelo Herms B&Whole Blood [facility] ([facility]), [address], [address] [place] [address] 07/20 CBC w/ auto diff PLT 10*3/u L 163.0 337.0 160.0 Low FINAL Marcelo Herms B&Whole Blood [facility] ([facility]), [address], [address] [place] [address] 11/09 CBC w/ auto diff WBC 10*3/u [...] Blood 5 02/12 Lab Repor t See information systems security analyst d 02/15 CBC w/ auto diff WBC 10*3/u L 4.2 9.1 8.8 FINAL Marcelo Olson B&Whole Blood [facility] ([facility]), [address], [address] [place] [address] 02/15 CBC w/ auto diff Cristobal # (ANC) 10*3/u L 1.78 5.38 4.12 FINAL Marcelo Mahmoods B&Whole Blood [facility] ([facility]), [address], Suite [facility] [place] [address] 02/15 CBC w/ auto diff LY # 10*3/u L 1.32 3.57 3.32 FINAL Marcelo Mahmoods B&Whole Blood [facility] ([facility]), [address], [address] [facility] [place] [address] 02/15 CBC w/ auto diff MO # 10*3/u L 0.3 0.82 0.96 High FINAL Marcelo Mahmoods B&Whole Blood [facility] ([facility]), [address], [address] [facility] [place] [address] 02/15 CBC w/ auto diff EO # 10*3/u lL 0.04 0.54 0.36 FINAL Marcelo Mahmoods B&Whole Blood [facility] ([facility]), [address], [address] [facility] [place] [address] 02/15 CBC w/ auto diff BA # 10*3/u L 0.01 0.08 0.04 FINAL Marcelo Mahmoods B&Whole Blood [facility] ([facility]), [address], [address] [facility] [place] [address] 02/15 CBC w/ auto diff Cristobal % % 34.0 67.9 46.8 FINAL Marcelo Mahmoods B&Whole Blood [facility] ([facility]), [address], [address] [facility] [place] [facility] 02/15 CBC w/ auto diff LY % % 21.8 53.1 37.7 FINAL Marcelo Mahmoods B&Whole Blood [facility] ([facility]), [address], [address] [facility] [place] [address] 02/15 CBC w/ auto diff MO % % 5.3 12.2 10.9 FINAL Marcelo Mahmoods B&Whole Blood [facility] ([facility]), [address], [address] [facility] [place] [address] 02/15 CBC w/ auto diff EO % % 0.8 7.0 4.1 FINAL Marcelo Mahmoods B&Whole Blood [facility] ([facility]), [address], [address] [facility] [place] [address] 02/15 CBC w/ auto diff BA % % 0.2 1.2 0.5 FINAL Marcelo Mahmoods B&Whole Blood [facility] ([facility]), [address], [address] [facility] [place] [address] 02/15 CBC w/ auto diff RBC 10*6/u L 4.63 6.08 5.33 FINAL Marcelo Olson B&Whole Blood [facility] ([facility]), [address], [address] [facility] [place] [facility] 02/15 CBC w/ auto diff HGB g/dL 13.7 17.5 17.4 FINAL Marcelo Olson B&Whole Blood [facility] ([facility]), [address], [address] [facility] [place] [facility] 02/15 CBC w/ auto diff HCT % 40.1 51.0 50.4 FINAL Marcelo Olson B&Whole Blood [facility] ([facility]), [address], [address] [place] [address] 02/15 CBC w/ auto diff MCV fL 79.0 92.2 94.6 High FINAL Marcelo Mahmoods B&Whole Blood [facility] ([facility]), [address], [address] [place] [address] 02/15 CBC w/ auto diff MCH pg 25.7 32.2 32.6 High FINAL Marcelo Olson B&Whole Blood [facility] ([facility]), [address], [address] [place] [address] 02/15 CBC w/ auto diff MCHC g/dL 32.3 36.5 34.5 FINAL Marcelo Olson B&Whole Blood [facility] ([facility]), [address], [address] [place] [address] 02/15 CBC w/ auto diff RDW-C V, % % 11.6 14.4 14.0 FINAL Marcelo Olson B&Whole Blood [facility] ([facility]), [address], [address] [facility] [place] [facility] 02/15 CBC w/ auto diff PLT 10*3/u L 163.0 337.0 172.0 FINAL Marcelo Mahmoods B&Whole Blood [facility] ([facility]), [address], [address] [facility] [place] [address] 05/31 CBC w/ auto diff WBC 10*3/u L 4.2 9.1 10.4 High FINAL Marcelo Mahmoods B&Whole Blood [facility] ([facility]), [address], [address] [facility] [place] [facility] 05/31 CBC w/ auto diff Cristobal # (ANC) 10*3/u L 1.78 5.38 5.26 FINAL Marcelo Olson B&Whole Blood [facility] ([facility]), [address], [address] [place] [address] 05/31 CBC w/ auto diff LY # 10*3/u L 1.32 3.57 3.84 High FINAL Marcelo Olson B&Whole Blood [facility] (T), [address], [address] [place] [address] 05/31 CBC w/ auto diff MO # 10*3/u L 0.3 0.82 0.94 High FINAL Marcelo Olson B&Whole Blood [facility] ([facility]), [address], [address] [place] [address] 05/31 CBC w/ auto diff EO # 10*3/u lL 0.04 0.54 0.30 FINAL Marcelo Olson B&Whole Blood [facility] ([facility]), [address], [address] [place] [address] 05/31 CBC w/ auto diff BA # 10*3/u L 0.01 0.08 0.03 FINAL Marcelo Olson B&Whole Blood [facility] ([facility]), [address], [address] [place] [address] 05/31 CBC w/ auto diff Cristobal % % 34.0 67.9 50.7 FINAL Marcelo Olson B&Whole Blood [facility] ([facility]), [address], [address] [place] [address] 05/31 CBC w/ auto diff LY % % 21.8 53.1 37.0 FINAL Marcelo Olson B&Whole Blood [facility] ([facility]), [address], [address] [place] [address] 05/31 CBC w/ auto diff MO % % 5.3 12.2 9.1 FINAL Marcelo Mahmoods B&Whole Blood [facility] (T), [address], [address] [place] [address] 05/31 CBC w/ auto diff EO % % 0.8 7.0 2.9 FINAL Marcelo Mahmoods B&Whole Blood [facility] ([facility]), [address], [address] [place] [address] 05/31 CBC w/ auto diff BA % % 0.2 1.2 0.3 FINAL Marcelo Mahmoods B&Whole Blood [facility] ([facility]), [address], [address] [place] [address] 05/31 CBC w/ auto diff RBC 10*6/u L 4.63 6.08 5.01 FINAL Marcelo Mahmoods B&Whole Blood [facility] ([facility]), [address], [address] [place] [address] 05/31 CBC w/ auto diff HGB g/dL 13.7 17.5 16.4 FINAL Marcelo Mahmoods B&Whole Blood [facility] ([facility]), [address], [address] [place] [address] 05/31 CBC w/ auto diff HCT % 40.1 51.0 47.5 FINAL Marcelo Mahmoods B&Whole Blood [facility] ([facility]), [address], [address] [place] [address] 05/31 CBC w/ auto diff MCV fL 79.0 92.2 94.8 High FINAL Marcelo Mahmoods B&Whole Blood [facility] ([facility]), [address], [address] [place] [address] 05/31 CBC w/ auto diff MCH pg 25.7 32.2 32.7 High FINAL [facility] B&Whole Blood [facility] ([facility]), [address], [address] [place] [address] 05/31 CBC w/ auto diff MCHC g/dL 32.3 36.5 34.5 FINAL Marcelo Mahmoods B&Whole Blood [facility] ([facility]), [address], [address] [place] [address] 05/31 CBC w/ auto diff RDW-C V, % % 11.6 14.4 13.8 FINAL Marcelo Mahmoods B&Whole Blood [facility] ([facility]), [address], [address] [place] [address] 05/31 CBC w/ auto diff PLT 10*3/u L 163.0 337.0 161.0 Low FINAL Marcelo Mahmoods B&Whole Blood [facility] ([facility]), [address], [address] [place] [address] 06/21 CBC w/ auto diff WBC 10*3/u L 4.2 9.1 14[address] [facility] ([facility]), [address], [address] [place] [address] 06/21 CBC w/ auto diff Cristobal # (ANC) 10*3/u L 1.78 5.38 10.[address] [facility] ([facility]), [address], [address] [place] [address] 06/21 CBC w/ auto diff LY # 10*3/u L 1.32 3.[address] [facility] ([facility]), [address], [address] [place] [address] 06/21 CBC w/ auto diff MO # 10*3/u L 0.3 0.82 1[address] [facility] ([facility]), [address], [address] [place] [address] 06/21 CBC w/ auto diff EO # 10*3/u lL 0.04 0.54 0.[address] [facility] ([facility]), [address], [address] [place] [address] 06/21 CBC w/ auto diff BA # 10*3/u L 0.01 0.08 0[address] [facility] ([facility]), [address], [address] [place] [address] 06/21 CBC w/ auto diff Cristobal % % 34.0 67.9 [address] [facility] ([facility]), [address], [address] [place] [address] 06/21 CBC w/ auto diff LY % % 21.8 53.1 14[address] [facility] ([facility]), [address], [address] [place] [address] 06/21 CBC w/ auto diff MO % % 5.3 12.[address] [facility] ([facility]), [address], [address] [place] [address] 06/21 CBC w/ auto diff EO % % 0.8 7.0 0.2 Low FINAL [facility] ([facility]), [address], [address] [place] [address] 06/21 CBC w/ auto diff BA % % 0.2 1.2 0.1 Low FINAL [facility] ([facility]), [address], [address] [place] [address] 06/21 CBC w/ auto diff RBC 10*6/u L 4.63 6.08 4.90 FINAL [facility] ([facility]), [address], [address] [place] [address] 06/21 CBC w/ auto diff HGB g/dL 13.7 17.5 16.0 FINAL [facility] ([facility]), [address], [address] [place] [address] 06/21 CBC w/ auto diff HCT % 40.1 51.0 47.5 FINAL [facility] ([facility]), [address], [address] [place] [address] 06/21 CBC w/ auto diff MCV fL 79.0 92.2 96.9 High FINAL [facility] ([facility]), [address], [address] [place] [address] 06/21 CBC w/ auto diff MCH pg 25.7 32.2 32.7 High FINAL [facility] ([facility]), [address], [address] [place] [address] 06/21 CBC w/ auto diff MCHC g/dL 32.3 36.5 33.7 FINAL [facility] ([facility]), [address], [address] [place] [address] 06/21 CBC w/ auto diff RDW-C V, % % 11.6 14.4 14.0 FINAL [facility] ([facility]), [address], [address] [place] [address] 06/21 CBC w/ auto diff PLT 10*3/u L 163.0 337.0 185.0 FINAL Marcelo Olson [facility] Jennifer ([facility]), [address], [address] [facility] [address] 07/23 Lab Repor t See information systems security analyst d Medications Date Name Route Dose Frequency Instructions Start Date End Date Status Fill Status Indication 12/22 Sitagli ptin-Me tformin Oral 50 mg-1,00 0 mg orally 1.0 2 times per day active 12/22 Aspirin Oral orally 81.0 mg daily active 12/22 Insulin Detemir Subcuta neous 100 unit/mL subcutan eously 36.0 every evening active 12/22 Cyanoco balamin Oral orally 5000.0 mcg daily active 12/[address] [place] 3-DHA-E PA-Fish Oil Oral Liquid 1,600 mg-500 [...] Note Print Location: Unknown Date/Time Printed: 10/19/2025 17:02 ([facility]) Patient: VALERIE PUENTES Sex: Male : 1960 [...] Selected Billing Code(s): PHLEBOTOMY THERAPEUTIC SEPARATE PROCEDURE (45100) Entered By Barbara Casas RN; Incident to Marcelo Olson MD * Nurse Note for: 09-NOV-19 [facility] Nurse Note Print Location: Unknown Date/Time Printed: 10/19/2025 17:02 ([facility]) Patient: VALERIE PUENTES Sex: Male : 1960 [...] Selected Billing Code(s): PHLEBOTOMY THERAPEUTIC SEPARATE PROCEDURE (50402) Entered By Ju Gupta RN; Incident to Marcelo Olson MD * Nurse Note for: 20-JUL-19 [facility] Nurse Note Print Location: Unknown Date/Time Printed: 10/19/2025 17:02 ([facility]) Patient: VALERIE PUENTES Sex: Male : 1960 [...] Selected Billing Code(s): PHLEBOTOMY THERAPEUTIC SEPARATE PROCEDURE (42686) Entered By Barbara Garcia RN; Incident to Marcelo Olson MD
--- OUTSIDE RECORDS SUMMARY | 2025-10-19 17:02 | XMS_ITS | CCD ---
Author Name Interface, [id number] lity Address [address] [id number] Organization [facility] Address [address] [place] [address] Care Team Providers Care Clock And Watch Hands Mounter Name Role Phone Whitney HUGHES, Marcelo Munguia [...] Oral orally 25.0 mg daily active 12/22 [place] 3-DHA-E PA-Fish Oil Oral Liquid 1,600 mg-500 [...]
--- OUTSIDE RECORDS SUMMARY | 2025-10-19 17:02 | XMS_ITS ---
Author Name Interface, [id number] lity Address [address] [place] [address] Organization [facility] Address [address] [place] [address] Allergies and Adverse Reactions Medication/Group Name Reaction [...] 8.8 FINAL Marcelo Olson B&Whole Blood [facility] ([facility]), [address], [address] [place] [address] 02/15 CBC w/ auto diff Cristobal # (ANC) 10*3/u L 1.78 5.38 4.12 FINAL Marcelo Olson B&Whole Blood [facility] ([facility]), [address], [address] [place] [address] 02/15 CBC w/ auto diff LY # 10*3/u L 1.32 3.57 3.32 FINAL Marcelo Olson B&Whole Blood [facility] ([facility]), [address], [address] [place] [address] 02/15 CBC w/ auto diff MO # 10*3/u L 0.3 0.82 0.96 High FINAL Marcelo Olson B&Whole Blood [facility] ([facility]), [address], [address] [place] [address] 02/15 CBC w/ auto diff EO # 10*3/u lL 0.04 0.54 0.36 FINAL Marcelo Olson B&Whole Blood [facility] ([facility]), [address], [address] [place] [address] 02/15 CBC w/ auto diff BA # 10*3/u L 0.01 0.08 0.04 FINAL Marcelo Olson B&Whole Blood [facility] ([facility]), [address], [address] [place] [address] 02/15 CBC w/ auto diff Cristobal % % 34.0 67.9 46.8 FINAL Marcelo Olson B&Whole Blood [facility] ([facility]), [address], [address] [place] [address] 02/15 CBC w/ auto diff LY % % 21.8 53.1 37.7 FINAL Marcelo Mahmoods B&Whole Blood [facility] ([facility]), [address], [address] [facility] [place] [address] 02/15 CBC w/ auto diff MO % % 5.3 12.2 10.9 FINAL Marcelo Mahmoods B&Whole Blood [facility] ([facility]), [address], [address] [facility] [place] [address] 02/15 CBC w/ auto diff EO % % 0.8 7.0 4.1 FINAL Marcelo Olson B&Whole Blood [facility] ([facility]), [address], [address] [facility] [place] [facility] 02/15 CBC w/ auto diff BA % % 0.2 1.2 0.5 FINAL Marcelo Mahmoods B&Whole Blood [facility] (T), [address], [address] [facility] [place] [facility] 02/15 CBC w/ auto diff RBC 10*6/u L 4.63 6.08 5.33 FINAL Marcelo Mahmoods B&Whole Blood [facility] (T), [address], [address] [facility] [place] [facility] 02/15 CBC w/ auto diff HGB g/dL 13.7 17.5 17.4 FINAL Marcelo Olson B&Whole Blood [facility] (T), [address], [address] [facility] [place] [facility] 02/15 CBC w/ auto diff HCT % 40.1 51.0 50.4 FINAL Marcelo Mahmoods B&Whole Blood [facility] (T), [address], [address] [facility] [place] [facility] 02/15 CBC w/ auto diff MCV fL 79.0 92.2 94.6 High FINAL Marcelo Mahmoods B&Whole Blood [facility] ([facility]), [address], [address] [facility] [place] [address] 02/15 CBC w/ auto diff MCH pg 25.7 32.2 32.6 High FINAL Marcelo Mahmoods B&Whole Blood [facility] ([facility]), [address], [address] [facility] [place] [address] 02/15 CBC w/ auto diff MCHC g/dL 32.3 36.5 34.5 FINAL Marcelo Mahmoods B&Whole Blood [facility] ([facility]), [address], [address] [place] [address] 02/15 CBC w/ auto diff RDW-C V, % % 11.6 14.4 14.0 FINAL Marcelo Mahmoods B&Whole Blood [facility] (T), [address], [address] [place] [address] 02/15 CBC w/ auto diff PLT 10*3/u L 163.0 337.0 172.0 FINAL Marcelo Mahmoods B&Whole Blood [facility] ([facility]), [address], [address] [place] [address] 05/31 CBC w/ auto diff WBC 10*3/u L 4.2 9.1 10.4 High FINAL Marcelo Mahmoods B&Whole Blood [facility] ([facility]), [address], [address] [place] [address] 05/31 CBC w/ auto diff Cristobal # (ANC) 10*3/u L 1.78 5.38 5.26 FINAL Marcelo Mahmoods B&Whole Blood [facility] ([facility]), [address], [address] [place] [address] 05/31 CBC w/ auto diff LY # 10*3/u L 1.32 3.57 3.84 High FINAL Marcelo Mahmoods B&Whole Blood [facility] ([facility]), [address], [address] [place] [address] 05/31 CBC w/ auto diff MO # 10*3/u L 0.3 0.82 0.94 High FINAL Marcelo Mahmoods B&Whole Blood [facility] ([facility]), [address], [address] [place] [address] 05/31 CBC w/ auto diff EO # 10*3/u lL 0.04 0.54 0.30 FINAL Marcelo Mahmoods B&Whole Blood [facility] ([facility]), [address], [address] [place] [address] 05/31 CBC w/ auto diff BA # 10*3/u L 0.01 0.08 0.03 FINAL Marcelo Herms B&Whole Blood [facility] ([facility]), [address], [address] [place] [address] 05/31 CBC w/ auto diff Cristobal % % 34.0 67.9 50.7 FINAL Marcelo Herms B&Whole Blood [facility] (T), [address], [address] [facility] [place] [facility] 05/31 CBC w/ auto diff LY % % 21.8 53.1 37.0 FINAL Marcelo Olson B&Whole Blood [facility] (T), [address], [address] [place] [address] 05/31 CBC w/ auto diff MO % % 5.3 12.2 9.1 FINAL Marcelo Olson B&Whole Blood [facility] (T), [address], [address] [place] [address] 05/31 CBC w/ auto diff EO % % 0.8 7.0 2.9 FINAL Marcelo Olson B&Whole Blood [facility] ([facility]), [address], [address] [place] [address] 05/31 CBC w/ auto diff BA % % 0.2 1.2 0.3 FINAL Marcelo Olson B&Whole Blood [facility] ([facility]), [address], [address] [place] [address] 05/31 CBC w/ auto diff RBC 10*6/u L 4.63 6.08 5.01 FINAL Marcelo Olson B&Whole Blood [facility] ([facility]), [address], [address] [place] [address] 05/31 CBC w/ auto diff HGB g/dL 13.7 17.5 16.4 FINAL Marceol Olson B&Whole Blood [facility] ([facility]), [address], [address] [place] [address] 05/31 CBC w/ auto diff HCT % 40.1 51.0 47.5 FINAL Marcelo Olson B&Whole Blood [facility] ([facility]), [address], [address] [place] [address] 05/31 CBC w/ auto diff MCV fL 79.0 92.2 94.8 High FINAL Marcelo Olson B&Whole Blood [facility] ([facility]), [address], [address] [place] [address] 05/31 CBC w/ auto diff MCH pg 25.7 32.2 32.7 High FINAL Marcelo Olson B&Whole Blood [facility] ([facility]), [address], [address] [place] [address] 05/31 CBC w/ auto diff MCHC g/dL 32.3 36.5 34.5 FINAL Marcelo [facility] B&Whole Blood [facility] ([facility]), [address], [address] [place] [address] 05/31 CBC w/ auto diff RDW-C V, % % 11.6 14.4 13.8 FINAL Marcelo [facility] B&Whole Blood [facility] ([facility]), [address], [address] [place] [address] 05/31 CBC w/ auto diff PLT 10*3/u L 163.0 337.0 161.0 Low FINAL [facility] B&Whole Blood [facility] ([facility]), [address], [address] [place] [address] 06/21 CBC w/ auto diff WBC 10*3/u L 4.2 9.1 14.1 High FINAL [facility] (T), [address], [address] [place] [address] 06/21 CBC w/ auto diff Cristobal # (ANC) 10*3/u L 1.78 5.38 10.63 High FINAL [facility] (T), [address], [address] [place] [address] 06/21 CBC w/ auto diff LY # 10*3/u L 1.32 3.57 2.09 FINAL [facility] (T), [address], [address] [place], [place] [id number] 06/21 CBC w/ auto diff MO # 10*3/u L 0.3 0.82 1.34 High FINAL [facility] ([facility]), [address], [address] [place], [place] [id number] 06/21 CBC w/ auto diff EO # 10*3/u lL 0.04 0.54 0.03 Low FINAL [facility] ([facility]), [address], [address] [facility] [address] 06/21 CBC w/ auto diff BA # 10*3/u L 0.01 0.08 0.02 FINAL [facility] ([facility]), [address], [address] [place] [address] 06/21 CBC w/ auto diff Cristobal % % 34.0 67.9 75.4 High FINAL Marcelo [facility] ([facility]), [address], [address] [place] [address] 06/21 CBC w/ auto diff LY % % 21.8 53.1 14.8 Low FINAL Marcelo [facility] ([facility]), [address], [address] [place] [address] 06/21 CBC w/ auto diff MO % % 5.3 12.2 9.5 FINAL Marcelo [facility] ([facility]), [address], [address] [place] [address] 06/21 CBC w/ auto diff EO % % 0.8 7.0 0.2 Low FINAL Marcelo [facility] ([facility]), [address], [address] [place] [address] 06/21 CBC w/ auto diff BA % % 0.2 1.2 0.1 Low FINAL Marcelo [facility] ([facility]), [address], [address] [place] [address] 06/21 CBC w/ auto diff RBC 10*6/u L 4.63 6.08 4.90 FINAL Marcelo [facility] ([facility]), [address], [address] [place] [address] 06/21 CBC w/ auto diff HGB g/dL 13.7 17.5 16.0 FINAL Marcelo [facility] ([facility]), [address], [address] [place] [address] 06/21 CBC w/ auto diff HCT % 40.1 51.0 47.5 FINAL Marcelo [facility] ([facility]), [address], [address] [place] [address] 06/21 CBC w/ auto diff MCV fL 79.0 92.2 96.9 High FINAL Marcelo [facility] ([facility]), [address], [address] [place] [address] 06/21 CBC w/ auto diff MCH pg 25.7 32.2 32.7 High FINAL [facility] ([facility]), [address], [address] [facility] [address] 06/21 CBC w/ auto diff MCHC g/dL 32.3 36.5 33.7 FINAL [facility] (T), [address], [address] [facility] [address] 06/21 CBC w/ auto diff RDW-C V, % % 11.6 14.4 14.0 FINAL [facility] (T), [address], [address] [facility] [address] 06/21 CBC w/ auto diff PLT 10*3/u L 163.0 337.0 185.0 FINAL [facility] ([facility]), [address], [address] [facility] [address] 07/23 Lab Repor t See zipper slide attacher d Medications Date Name Route Dose [...] Oral orally 5000.0 mcg daily active 12/22 [place] 3-DHA-E PA-Fish Oil Oral Liquid 1,600 mg-500 [...] Print Location: Unknown Date/Time Printed: 10/19/2025 17:02 ([facility]) Patient: VALERIE PUENTES Sex: Male : 1960 [...] Selected Billing Code(s): PHLEBOTOMY THERAPEUTIC SEPARATE PROCEDURE (68752) Entered By Barbara Casas RN; Incident to Marcelo Olson MD
--- OUTSIDE RECORDS SUMMARY | 2025-10-19 17:02 | XMS_ITS | CCD ---
Author Name Interface, [id number] lity Address [address] [phone] Organization [facility] Address [address] [place] [address] Care Team Providers Care Special Delivery Worker Name Role Phone Whitney HUGHES, Marcelo Munguia [...] Oral orally 25.0 mg daily active 12/22 [place] 3-DHA-E PA-Fish Oil Oral Liquid 1,600 mg-500 [...]
--- OUTSIDE RECORDS SUMMARY | 2025-10-19 17:02 | XMS_ITS ---
Author Name Interface, [id number] lity Address [address] [place] [address] Organization [facility] Address [address] [place] [address] Allergies and Adverse Reactions Medication/Group Name Reaction [...] L 4.2 9.1 14.1 High FINAL Marcelo [facility] ([facility]), [address], [address] [facility] [address] 06/21 CBC w/ auto diff Cristobal # (ANC) 10*3/u L 1.78 5.38 10.63 High FINAL Marcelo [facility] ([facility]), [address], [address] [facility] [address] 06/21 CBC w/ auto diff LY # 10*3/u L 1.32 3.57 2.09 FINAL [facility] ([facility]), [address], [address] [facility] [address] 06/21 CBC w/ auto diff MO # 10*3/u L 0.3 0.82 1.34 High FINAL Marcelo [facility] ([facility]), [address], [address] [place] [address] 06/21 CBC w/ auto diff EO # 10*3/u lL 0.04 0.54 0.03 Low FINAL Marcelo [facility] ([facility]), [address], [address] [place] [address] 06/21 CBC w/ auto diff BA # 10*3/u L 0.01 0.08 0.02 FINAL Marcelo [facility] ([facility]), [address], [address] [place] [address] 06/21 CBC w/ auto diff Cristobal % % 34.0 67.9 75.4 High FINAL Marcelo [facility] ([facility]), [address], [address] [place] [address] 06/21 CBC w/ auto diff LY % % 21.8 53.1 14.8 Low FINAL Marcelo [facility] ([facility]), [address], [address] [place] [address] 06/21 CBC w/ auto diff MO % % 5.3 12.2 9.5 FINAL Marcelo [facility] ([facility]), [address], [address] [place] [address] 06/21 CBC w/ auto diff EO % % 0.8 7.0 0.2 Low FINAL Marcelo [facility] ([facility]), [address], [address] [place] [address] 06/21 CBC w/ auto diff BA % % 0.2 1.2 0.1 Low FINAL Marcelo [facility] ([facility]), [address], [address] [place] [address] 06/21 CBC w/ auto diff RBC 10*6/u L 4.63 6.08 4.90 FINAL Marcelo [facility] ([facility]), [address], [address] [place] [address] 06/21 CBC w/ auto diff HGB g/dL 13.7 17.5 16.0 FINAL [facility] ([facility]), [address], [address] [place] [address] 06/21 CBC w/ auto diff HCT % 40.1 51.0 47.5 FINAL [facility] ([facility]), [address], [address] [place] [address] 06/21 CBC w/ auto diff MCV fL 79.0 92.2 96.9 High FINAL [facility] ([facility]), [address], [address] [place], [place] [address] 06/21 CBC w/ auto diff MCH pg 25.7 32.2 32.7 High FINAL [facility] ([facility]), [address], [address] [place] [address] 06/21 CBC w/ auto diff MCHC g/dL 32.3 36.5 33.7 FINAL [facility] ([facility]), [address], [address] [facility] [address] 06/21 CBC w/ auto diff RDW-C V, % % 11.6 14.4 14.0 FINAL [facility] ([facility]), [address], [address] [facility] [address] 06/21 CBC w/ auto diff PLT 10*3/u L 163.0 337.0 185.0 FINAL [facility] ([facility]), [address], [address] [place], [place] [address] 07/23 Lab Repor t See senior software tester d Medications Date Name Route Dose Frequency Instructions Start Date End Date Status Fill Status Indication 12/22 Sitagli ptin-Me tformin Oral 50 mg-1,00 0 mg orally 1.0 2 times per day active 12/22 Aspirin Oral orally 81.0 mg daily active 12/22 Insulin Detemir Subcuta neous 100 unit/mL subcutan eously 36.0 every evening active 12/22 [place] balamin Oral orally 5000.0 mcg daily active 12/22 [place] 3-DHA-E PA-Fish Oil Oral Liquid 1,600 mg-500 [...]
--- OUTSIDE RECORDS SUMMARY | 2025-10-19 17:02 | XMS_ITS | CCD ---
Author Name Interface, [id number] lity Address [address] [phone] Organization [facility] Address [address] [place] [address] Care Team Providers Care Hazardous Waste Remover Name Role Phone Whitney HUGHES, Marcelo Munguia [...] Oral orally 25.0 mg daily active 12/22 [place] 3-DHA-E PA-Fish Oil Oral Liquid 1,600 mg-500 [...]
--- OUTSIDE RECORDS SUMMARY | 2025-10-19 17:02 | XMS_ITS ---
Author Name Interface, [id number] lity Address [address] [place] [address] Organization [facility] Address [address] [place] [address] Allergies and Adverse Reactions Medication/Group Name Reaction [...] B&Whole Blood [facility] ([facility]), [address], [address] [place] [address] 02/15 CBC w/ auto diff Cristobal # (ANC) 10*3/u L 1.78 5.38 4.12 FINAL Marcelo Olson B&Whole Blood [facility] ([facility]), [address], [address] [place] [address] 02/15 CBC w/ auto diff LY # 10*3/u L 1.32 3.57 3.32 FINAL Marcelo Olson B&Whole Blood [facility] ([facility]), [address], [address] [place] [address] 02/15 CBC w/ auto diff MO # 10*3/u L 0.3 0.82 0.96 High FINAL Marcelo Olson B&Whole Blood [facility] ([facility]), [address], [address] [place] [address] 02/15 CBC w/ auto diff EO # 10*3/u lL 0.04 0.54 0.36 FINAL Marcelo Olson B&Whole Blood [facility] ([facility]), [address], [address] [place] [address] 02/15 CBC w/ auto diff BA # 10*3/u L 0.01 0.08 0.04 FINAL Marcelo Olson B&Whole Blood [facility] ([facility]), [address], [address] [place] [address] 02/15 CBC w/ auto diff Cristobal % % 34.0 67.9 46.8 FINAL Marcelo Olson B&Whole Blood [facility] ([facility]), [address], [address] [place] [address] 02/15 CBC w/ auto diff LY % % 21.8 53.1 37.7 FINAL Marcelo Mahmoods B&Whole Blood [facility] ([facility]), [address], [place] [facility] [place] [address] 02/15 CBC w/ auto diff MO % % 5.3 12.2 10.9 FINAL Marcelo Mahmoods B&Whole Blood [facility] ([facility]), [address], [place] [facility] [place] [address] 02/15 CBC w/ auto diff EO % % 0.8 7.0 4.1 FINAL Marcelo Olson B&Whole Blood [facility] ([facility]), [address], [address] [facility] [place] [facility] 02/15 CBC w/ auto diff BA % % 0.2 1.2 0.5 FINAL Marcelo Mahmoods B&Whole Blood [facility] (T), [address], [address] [facility] [place] [facility] 02/15 CBC w/ auto diff RBC 10*6/u L 4.63 6.08 5.33 FINAL Marcelo Mahmoods B&Whole Blood [facility] (T), [address], [address] [facility] [place] [facility] 02/15 CBC w/ auto diff HGB g/dL 13.7 17.5 17.4 FINAL Marcelo Olson B&Whole Blood [facility] (T), [address], [address] [facility] [place] [facility] 02/15 CBC w/ auto diff HCT % 40.1 51.0 50.4 FINAL Marcelo Mahmoods B&Whole Blood [facility] ([facility]), [address], [address] [facility] [place] [facility] 02/15 CBC w/ auto diff MCV fL 79.0 92.2 94.6 High FINAL Marcelo Mahmoods B&Whole Blood [facility] ([facility]), [address], [place] [facility] [place] [address] 02/15 CBC w/ auto diff MCH pg 25.7 32.2 32.6 High FINAL Marcelo Mahmoods B&Whole Blood [facility] ([facility]), [address], [place] [facility] [place] [address] 02/15 CBC w/ auto diff MCHC g/dL 32.3 36.5 34.5 FINAL Marcelo Mahmoods B&Whole Blood [facility] ([facility]), [address], [address] [place] [address] 02/15 CBC w/ auto diff RDW-C V, % % 11.6 14.4 14.0 FINAL Marcelo Mahmoods B&Whole Blood [facility] (T), [address], [address] [place] [address] 02/15 CBC w/ auto diff PLT 10*3/u L 163.0 337.0 172.0 FINAL Marcelo Mahmoods B&Whole Blood [facility] ([facility]), [address], [address] [place] [address] 05/31 CBC w/ auto diff WBC 10*3/u L 4.2 9.1 10.4 High FINAL Marcelo Mahmoods B&Whole Blood [facility] ([facility]), [address], [address] [place] [address] 05/31 CBC w/ auto diff Cristobal # (ANC) 10*3/u L 1.78 5.38 5.26 FINAL Marcelo Mahmoods B&Whole Blood [facility] ([facility]), [address], [address] [place] [address] 05/31 CBC w/ auto diff LY # 10*3/u L 1.32 3.57 3.84 High FINAL Marcelo Mahmoods B&Whole Blood [facility] ([facility]), [address], [address] [place] [address] 05/31 CBC w/ auto diff MO # 10*3/u L 0.3 0.82 0.94 High FINAL Marcelo Mahmoods B&Whole Blood [facility] ([facility]), [address], [address] [place] [address] 05/31 CBC w/ auto diff EO # 10*3/u lL 0.04 0.54 0.30 FINAL Marcelo Mahmoods B&Whole Blood [facility] ([facility]), [address], [address] [place] [address] 05/31 CBC w/ auto diff BA # 10*3/u L 0.01 0.08 0.03 FINAL Marcelo Herms B&Whole Blood [facility] ([facility]), [address], [address] [place] [address] 05/31 CBC w/ auto diff Cristobal % % 34.0 67.9 50.7 FINAL Marcelo Herms B&Whole Blood [facility] (T), [address], [address] [facility] [place] [facility] 05/31 CBC w/ auto diff LY % % 21.8 53.1 37.0 FINAL Marcelo Olson B&Whole Blood [facility] (T), [address], [address] [place] [address] 05/31 CBC w/ auto diff MO % % 5.3 12.2 9.1 FINAL Marcelo Olson B&Whole Blood [facility] (T), [address], [address] [place] [address] 05/31 CBC w/ auto diff EO % % 0.8 7.0 2.9 FINAL Marcelo Olson B&Whole Blood [facility] (T), [address], [address] [place] [address] 05/31 CBC w/ auto diff BA % % 0.2 1.2 0.3 FINAL Marcelo Olson B&Whole Blood [facility] (T), [address], [address] [place] [address] 05/31 CBC w/ auto diff RBC 10*6/u L 4.63 6.08 5.01 FINAL Marcelo Olson B&Whole Blood [facility] ([facility]), [address], [address] [place] [address] 05/31 CBC w/ auto diff HGB g/dL 13.7 17.5 16.4 FINAL Marcelo Olson B&Whole Blood [facility] (T), [address], [address] [place] [address] 05/31 CBC w/ auto diff HCT % 40.1 51.0 47.5 FINAL Marcelo Olson B&Whole Blood [facility] (T), [address], [address] [place] [address] 05/31 CBC w/ auto diff MCV fL 79.0 92.2 94.8 High FINAL Marcelo Olson B&Whole Blood [facility] (T), [address], [address] [place] [address] 05/31 CBC w/ auto diff MCH pg 25.7 32.2 32.7 High FINAL Marcelo Olson B&Whole Blood [facility] (T), [address], [address] [place] [address] 05/31 CBC w/ auto diff MCHC g/dL 32.3 36.5 34.5 FINAL Marcelo [facility] B&Whole Blood [facility] ([facility]), [address], [address] [place] [address] 05/31 CBC w/ auto diff RDW-C V, % % 11.6 14.4 13.8 FINAL Marcelo [facility] B&Whole Blood [facility] ([facility]), [address], [address] [place] [address] 05/31 CBC w/ auto diff PLT 10*3/u L 163.0 337.0 161.0 Low FINAL [facility] B&Whole Blood [facility] ([facility]), [address], [address] [place] [address] 06/21 CBC w/ auto diff WBC 10*3/u L 4.2 9.1 14.1 High FINAL [facility] (T), [address], [address] [place] [address] 06/21 CBC w/ auto diff Cristobal # (ANC) 10*3/u L 1.78 5.38 10.63 High FINAL [facility] (T), [address], [address] [place] [address] 06/21 CBC w/ auto diff LY # 10*3/u L 1.32 3.57 2.09 FINAL [facility] (T), [address], [address] [place], [place] [id number] 06/21 CBC w/ auto diff MO # 10*3/u L 0.3 0.82 1.34 High FINAL [facility] ([facility]), [address], [address] [place], [place] [id number] 06/21 CBC w/ auto diff EO # 10*3/u lL 0.04 0.54 0.03 Low FINAL [facility] ([facility]), [address], [address] [facility] [address] 06/21 CBC w/ auto diff BA # 10*3/u L 0.01 0.08 0.02 FINAL [facility] ([facility]), [address], [address] [place] [address] 06/21 CBC w/ auto diff Cristobal % % 34.0 67.9 75.4 High FINAL Marcelo [facility] ([facility]), [address], [address] [place] [address] 06/21 CBC w/ auto diff LY % % 21.8 53.1 14.8 Low FINAL Marcelo [facility] ([facility]), [address], [address] [place] [address] 06/21 CBC w/ auto diff MO % % 5.3 12.2 9.5 FINAL Marcelo [facility] ([facility]), [address], [address] [place] [address] 06/21 CBC w/ auto diff EO % % 0.8 7.0 0.2 Low FINAL Amrcelo [facility] ([facility]), [address], [address] [place] [address] 06/21 CBC w/ auto diff BA % % 0.2 1.2 0.1 Low FINAL Marcelo [facility] ([facility]), [address], [address] [place] [address] 06/21 CBC w/ auto diff RBC 10*6/u L 4.63 6.08 4.90 FINAL Marcelo [facility] ([facility]), [address], [address] [place] [address] 06/21 CBC w/ auto diff HGB g/dL 13.7 17.5 16.0 FINAL Marcelo [facility] ([facility]), [address], [address] [place] [address] 06/21 CBC w/ auto diff HCT % 40.1 51.0 47.5 FINAL Marcelo [facility] ([facility]), [address], [address] [place] [address] 06/21 CBC w/ auto diff MCV fL 79.0 92.2 96.9 High FINAL Marcelo [facility] ([facility]), [address], [address] [place] [address] 06/21 CBC w/ auto diff MCH pg 25.7 32.2 32.7 High FINAL [facility] ([facility]), [address], [address] [facility] [address] 06/21 CBC w/ auto diff MCHC g/dL 32.3 36.5 33.7 FINAL [facility] (T), [address], [address] [facility] [address] 06/21 CBC w/ auto diff RDW-C V, % % 11.6 14.4 14.0 FINAL [facility] (T), [address], [address] [facility] [address] 06/21 CBC w/ auto diff PLT 10*3/u L 163.0 337.0 185.0 FINAL [facility] ([facility]), [address], [address] [facility] [address] 07/23 Lab Repor t See sole layer hand d Medications Date Name Route Dose Frequency Instructions Start Date End Date Status Fill Status Indication 12/22 Sitagli ptin-Me tformin Oral 50 mg-1,00 0 mg orally 1.0 2 times per day active 12/22 Aspirin Oral orally 81.0 mg daily active 12/22 Insulin Detemir Subcuta neous 100 unit/mL subcutan eously 36.0 every evening active 12/22 Cyanoco balamin Oral orally 5000.0 mcg daily active 12/22 Rochelle 3-DHA-E PA-Fish Oil Oral Liquid 1,600 mg-500 [...] Print Location: Unknown Date/Time Printed: 10/19/2025 17:02 ([facility]) Patient: VALERIE PUENTES Sex: Male : 1960 [...] Selected Billing Code(s): PHLEBOTOMY THERAPEUTIC SEPARATE PROCEDURE (88900) Entered By Barbara Casas RN; Incident to Marcelo Olson MD
--- OUTSIDE RECORDS SUMMARY | 2025-10-19 17:02 | XMS_ITS | CCD ---
Author Name Interface, [id number] lity Address [address] [id number] Organization [facility] Address [address] [place] [id number] Care Team Providers Care Animal Behaviorist Name Role Phone Whitney HUGHES, Marcelo Munguia [...] Oral orally 25.0 mg daily active 12/22 [place] 3-DHA-E PA-Fish Oil Oral Liquid 1,600 mg-500 [...]
--- OUTSIDE RECORDS SUMMARY | 2025-10-19 17:02 | XMS_ITS | CCD ---
Author Name Interface, [id number] lity Address [address] [id number] Organization [facility] Address [address] [place] [address] Care Team Providers Care Net Making Supervisor Name Role Phone Whitney HUGHES, Marcelo [...] Oral orally 25.0 mg daily active 12/22 [place] 3-DHA-E PA-Fish Oil Oral Liquid 1,600 mg-500 [...]
--- OUTSIDE RECORDS SUMMARY | 2025-10-19 17:02 | XMS_ITS ---
Author Name Interface, [id number] lity Address [address] [place] [address] Organization [facility] Address [address] [place] [address] Allergies and Adverse Reactions Medication/Group Name Reaction [...] 9.1 8.8 FINAL Marcelo Olson B&Whole Blood [facility] ([facility]), [address], [address] [place] [address] 02/15 CBC w/ auto diff Cristobal # (ANC) 10*3/u L 1.78 5.38 4.12 FINAL Marcelo Olson B&Whole Blood [facility] ([facility]), [address] [facility], [address] [place] [address] 02/15 CBC w/ auto diff LY # 10*3/u L 1.32 3.57 3.32 FINAL Marcelo Olson B&Whole Blood [facility] ([facility]), [address], [address] [place] [address] 02/15 CBC w/ auto diff MO # 10*3/u L 0.3 0.82 0.96 High FINAL Marcelo Olson B&Whole Blood [facility] ([facility]), [address], [address] [place] [address] 02/15 CBC w/ auto diff EO # 10*3/u lL 0.04 0.54 0.36 FINAL Marcelo Olson B&Whole Blood [facility] ([facility]), [address], [address] [place] [address] 02/15 CBC w/ auto diff BA # 10*3/u L 0.01 0.08 0.04 FINAL Marcelo Olson B&Whole Blood [facility] ([facility]), [address] [facility], [address] [place] [address] 02/15 CBC w/ auto diff Cristobal % % 34.0 67.9 46.8 FINAL Marcelo Olson B&Whole Blood [facility] ([facility]), [address], [address] [place] [address] 02/15 CBC w/ auto diff LY % % 21.8 53.1 37.7 FINAL Marcelo Olson B&Whole Blood [facility] (T), [address], [address] [facility] [place] [address] 02/15 CBC w/ auto diff MO % % 5.3 12.2 10.9 FINAL Marcelo Olson B&Whole Blood [facility] (T), [address], [address] [facility] [facility] 02/15 CBC w/ auto diff EO % % 0.8 7.0 4.1 FINAL Marcelo Olson B&Whole Blood [facility] (T), [address], [address] [facility] [facility] 02/15 CBC w/ auto diff BA % % 0.2 1.2 0.5 FINAL Marcelo Olson B&Whole Blood [facility] ([facility]), [address], [address] [facility] [facility] 02/15 CBC w/ auto diff RBC 10*6/u L 4.63 6.08 5.33 FINAL Marcelo Olson B&Whole Blood [facility] ([facility]), [address], [address] [facility] [facility] 02/15 CBC w/ auto diff HGB g/dL 13.7 17.5 17.4 FINAL Marcelo Olson B&Whole Blood [facility] (T), [address], [address] [place] [address] 02/15 CBC w/ auto diff HCT % 40.1 51.0 50.4 FINAL Marcelo Olson B&Whole Blood [facility] (T), [address], [address] [facility] [place] [facility] 02/15 CBC w/ auto diff MCV fL 79.0 92.2 94.6 High FINAL Marcleo Olson B&Whole Blood [facility] ([facility]), [address], [address] [facility] [facility] 02/15 CBC w/ auto diff MCH pg 25.7 32.2 32.6 High FINAL Marcelo Olson B&Whole Blood [facility] (T), [address], [address] [facility] [place] [facility] 02/15 CBC w/ auto diff MCHC g/dL 32.3 36.5 34.5 FINAL Marcelo Mahmoods B&Whole Blood [facility] (T), [address], [address] [facility] [place] [address] 02/15 CBC w/ auto diff RDW-C V, % % 11.6 14.4 14.0 FINAL Marcelo Mahmoods B&Whole Blood [facility] (T), [address], [address] [place] [address] 02/15 CBC w/ auto diff PLT 10*3/u L 163.0 337.0 172.0 FINAL Marcelo Mahmoods B&Whole Blood [facility] (T), [address], [address] [place] [address] 05/31 CBC w/ auto diff WBC 10*3/u L 4.2 9.1 10.4 High FINAL Marcelo Herms B&Whole Blood [facility] (T), [address], [address] [place] [address] 05/31 CBC w/ auto diff Cristobal # (ANC) 10*3/u L 1.78 5.38 5.26 FINAL Marcelo Mahmoods B&Whole Blood [facility] (T), [address], [address] [place] [address] 05/31 CBC w/ auto diff LY # 10*3/u L 1.32 3.57 3.84 High FINAL Marcelo Mahmoods B&Whole Blood [facility] (T), [address], [address] [place] [address] 05/31 CBC w/ auto diff MO # 10*3/u L 0.3 0.82 0.94 High FINAL Marcelo Herms B&Whole Blood [facility] (T), [address], [address] [place] [address] 05/31 CBC w/ auto diff EO # 10*3/u lL 0.04 0.54 0.30 FINAL Marcelo Herms B&Whole Blood [facility] (T), [address], [address] [place] [address] 05/31 CBC w/ auto diff BA # 10*3/u L 0.01 0.08 0.03 FINAL Marcelo Herms B&Whole Blood [facility] (T), [address], [address] [place] [address] 05/31 CBC w/ auto diff Cristobal % % 34.0 67.9 50.7 FINAL Marcelo Herms B&Whole Blood [facility] ([facility]), [address], [address] [facility] [place] [address] 05/31 CBC w/ auto diff LY % % 21.8 53.1 37.0 FINAL Marcelo Olson B&Whole Blood [facility] ([facility]), [address], [address] [facility] [place] [facility] 05/31 CBC w/ auto diff MO % % 5.3 12.2 9.1 FINAL Marcelo Olson B&Whole Blood [facility] ([facility]), [address], [address] [facility] [place] [facility] 05/31 CBC w/ auto diff EO % % 0.8 7.0 2.9 FINAL Marcelo Olson B&Whole Blood [facility] ([facility]), [address], [address] [place] [address] 05/31 CBC w/ auto diff BA % % 0.2 1.2 0.3 FINAL Marcelo Olson B&Whole Blood [facility] (T), [address], [address] [place] [address] 05/31 CBC w/ auto diff RBC 10*6/u L 4.63 6.08 5.01 FINAL Marcelo Olson B&Whole Blood [facility] (T), [address], [address] [place] [address] 05/31 CBC w/ auto diff HGB g/dL 13.7 17.5 16.4 FINAL Marcelo Olson B&Whole Blood [facility] ([facility]), [address], [address] [place] [address] 05/31 CBC w/ auto diff HCT % 40.1 51.0 47.5 FINAL Marcelo Olson B&Whole Blood [facility] ([facility]), [address], [address] [place] [address] 05/31 CBC w/ auto diff MCV fL 79.0 92.2 94.8 High FINAL Marcelo Mahmoods B&Whole Blood [facility] ([facility]), [address], [address] [place] [address] 05/31 CBC w/ auto diff MCH pg 25.7 32.2 32.7 High FINAL Marcelo Mahmoods B&Whole Blood [facility] ([facility]), [address], [address] [place] [address] 05/31 CBC w/ auto diff MCHC g/dL 32.3 36.5 34.5 FINAL [facility] B&Whole Blood [facility] (T), [address], [address] [place] [address] 05/31 CBC w/ auto diff RDW-C V, % % 11.6 14.4 13.8 FINAL [facility] B&Whole Blood [facility] (T), [address], [address] [place] [address] 05/31 CBC w/ auto diff PLT 10*3/u L 163.0 337.0 161.0 Low FINAL [facility] B&Whole Blood [facility] ([facility]), [address], [address] [place] [address] 06/21 CBC w/ auto diff WBC 10*3/u L 4.2 9.1 14.1 High FINAL [facility] ([facility]), [address], [address] [place] [address] 06/21 CBC w/ auto diff Cristobal # (ANC) 10*3/u L 1.78 5.38 10.63 High FINAL [facility] ([facility]), [address], [address] [place] [address] 06/21 CBC w/ auto diff LY # 10*3/u L 1.32 3.57 2.09 FINAL [facility] ([facility]), [address], [address] [place] [address] 06/21 CBC w/ auto diff MO # 10*3/u L 0.3 0.82 1.34 High FINAL [facility] ([facility]), [address], [address] [place] [address] 06/21 CBC w/ auto diff EO # 10*3/u lL 0.04 0.54 0.03 Low FINAL [facility] ([facility]), [address], [address] [place] [address] 06/21 CBC w/ auto diff BA # 10*3/u L 0.01 0.08 0.02 FINAL [facility] ([facility]), [address], [address] [place] [address] 06/21 CBC w/ auto diff Cristobal % % 34.0 67.9 75.4 High FINAL [facility] ([facility]), [address], [address] [place] [address] 06/21 CBC w/ auto diff LY % % 21.8 53.1 14.8 Low FINAL [facility] ([facility]), [address], [address] [place] [address] 06/21 CBC w/ auto diff MO % % 5.3 12.2 9.5 FINAL [facility] ([facility]), [address], [address] [place] [address] 06/21 CBC w/ auto diff EO % % 0.8 7.0 0.2 Low FINAL [facility] ([facility]), [address], [address] [place] [address] 06/21 CBC w/ auto diff BA % % 0.2 1.2 0.1 Low FINAL [facility] ([facility]), [address], [address] [place] [address] 06/21 CBC w/ auto diff RBC 10*6/u L 4.63 6.08 4.90 FINAL [facility] ([facility]), [address], [address] [place] [address] 06/21 CBC w/ auto diff HGB g/dL 13.7 17.5 16.0 FINAL [facility] ([facility]), [address], [address] [place] [address] 06/21 CBC w/ auto diff HCT % 40.1 51.0 47.5 FINAL [facility] ([facility]), [address], [address] [place] [address] 06/21 CBC w/ auto diff MCV fL 79.0 92.2 96.9 High FINAL [facility] ([facility]), [address], [address] [place] [address] 06/21 CBC w/ auto diff MCH pg 25.7 32.2 32.7 High FINAL [facility] ([facility]), [address], [address] [facility] [address] 06/21 CBC w/ auto diff MCHC g/dL 32.3 36.5 33.7 FINAL [facility] ([facility]), [address], [address] [facility] [address] 06/21 CBC w/ auto diff RDW-C V, % % 11.6 14.4 14.0 FINAL [facility] ([facility]), [address], [address] [facility] [address] 06/21 CBC w/ auto diff PLT 10*3/u L 163.0 337.0 185.0 FINAL [facility] ([facility]), [address], [address] [facility] [address] 07/23 Lab Repor t See lcac radar operator/navigator d Medications Date Name Route Dose Frequency Instructions Start Date End Date Status Fill Status Indication 12/22 Sitagli ptin-Me tformin Oral 50 mg-1,00 0 mg orally 1.0 2 times per day active 12/22 Aspirin Oral orally 81.0 mg daily active 12/22 Insulin Detemir Subcuta neous 100 unit/mL subcutan eously 36.0 every evening active 12/22 Cyan[place] balamin Oral orally 5000.0 mcg daily active 12/22 [place] 3-DHA-E PA-Fish Oil Oral Liquid 1,600 mg-500 [...] Print Location: Unknown Date/Time Printed: 10/19/2025 17:02 ([facility]) Patient: VALERIE PUENTES Sex: Male [...] Selected Billing Code(s): PHLEBOTOMY THERAPEUTIC SEPARATE PROCEDURE (37699) Entered By Barbara Casas RN; Incident to Marcelo Olson MD
--- OUTSIDE RECORDS SUMMARY | 2025-10-19 17:03 | XMS_ITS ---
Author Name Interface, [id number] lity Address [address] [place] [address] Organization [facility] Address [address] [place] [address] Allergies and Adverse Reactions Medication/Group Name Reaction [...] Blood Formerly [facility] ([facility]), [address], [address] [place] [address] 07/20 CBC w/ auto diff Cristobal # (ANC) 10*3/u L 1.78 5.38 4.47 FINAL Marcelo Olson B&Whole Blood Formerly [facility] ([facility]), [address], Suite [facility] [place] [facility] 07/20 CBC w/ auto diff LY # 10*3/u L 1.32 3.57 3.40 FINAL Marcelo Olson B&Whole Blood Formerly [facility] ([facility]), [address], [address] [place], [place] [id number] 07/20 CBC w/ auto diff MO # 10*3/u L 0.3 0.82 0.80 FINAL Marcelo Olson B&Whole Blood Formerly [facility] ([facility]), [address], [place] [facility] [place] [address] 07/20 CBC w/ auto diff EO # 10*3/u lL 0.04 0.54 0.38 FINAL Marcelo Olson B&Whole Blood Formerly [facility] ([facility]), [address], [place] [facility] [place] [address] 07/20 CBC w/ auto diff BA # 10*3/u L 0.01 0.08 0.03 FINAL Marcelo Funez&Whole Blood [facility] ([facility]), [address], [address] [place] [address] 07/20 CBC w/ auto diff Cristobal % % 34.0 67.9 49.3 FINAL Marcelo Herms B&Whole Blood [facility] ([facility]), [address], [address] [place] [address] 07/20 CBC w/ auto diff LY % % 21.8 53.1 37.4 FINAL Marcelo Herms B&Whole Blood [facility] (T), [address], [address] [place] [address] 07/20 CBC w/ auto diff MO % % 5.3 12.2 8.8 FINAL Marcelo Herms B&Whole Blood [facility] ([facility]), [address], [address] [place] [address] 07/20 CBC w/ auto diff EO % % 0.8 7.0 4.2 FINAL Marcelo Herms B&Whole Blood Formerly [facility] ([facility]), [address], [address] [place] [address] 07/20 CBC w/ auto diff BA % % 0.2 1.2 0.3 FINAL Marcelo Herms B&Whole Blood [facility] ([facility]), [address], [address] [place] [address] 07/20 CBC w/ auto diff RBC 10*6/u L 4.63 6.08 5.60 FINAL Marcelo Herms B&Whole Blood Formerly [facility] ([facility]), [address], [address] [place] [address] 07/20 CBC w/ auto diff HGB g/dL 13.7 17.5 18.2 High FINAL Marcelo Herms B&Whole Blood [facility] (T), [address], [address] [place] [address] 07/20 CBC w/ auto diff HCT % 40.1 51.0 52.8 High FINAL Marcelo Herms B&Whole Blood [facility] ([facility]), [address], [address] [place] [address] 07/20 CBC w/ auto diff MCV fL 79.0 92.2 94.3 High FINAL Marcelo Herms B&Whole Blood [facility] ([facility]), [address], [address] [place] [address] 07/20 CBC w/ auto diff MCH pg 25.7 32.2 32.5 High FINAL Marcelo Herms B&Whole Blood Formerly [facility] ([facility]), [address], [address] [place] [address] 07/20 CBC w/ auto diff MCHC g/dL 32.3 36.5 34.5 FINAL Marcelo Herms B&Whole Blood Formerly [facility] ([facility]), [address], [address] [place] [address] 07/20 CBC w/ auto diff RDW-C V, % % 11.6 14.4 12.5 FINAL Marcelo Herms B&Whole Blood Formerly [facility] ([facility]), [address], [address] [place] [address] 07/20 CBC w/ auto diff PLT 10*3/u L 163.0 337.0 160.0 Low FINAL Marcelo Herms B&Whole Blood Formerly [facility] ([facility]), [address], [address] [place] [address] 11/09 CBC w/ auto diff WBC 10*3/u [...] Blood 5 02/12 Lab Repor t See case assembler d 02/15 CBC w/ auto diff WBC 10*3/u L 4.2 9.1 8.8 FINAL Marcelo Olson B&Whole Blood Formerly [facility] ([facility]), [address], [address] [place] [address] 02/15 CBC w/ auto diff Cristobal # (ANC) 10*3/u L 1.78 5.38 4.12 FINAL Marcelo Mahmoods B&Whole Blood [facility] ([facility]), [address], [place] [facility] [place] [address] 02/15 CBC w/ auto diff LY # 10*3/u L 1.32 3.57 3.32 FINAL Marcelo Mahmoods B&Whole Blood [facility] ([facility]), [address], [place] [facility] [place] [address] 02/15 CBC w/ auto diff MO # 10*3/u L 0.3 0.82 0.96 High FINAL Marcelo Mahmoods B&Whole Blood [facility] ([facility]), [address], [place] [facility] [place] [address] 02/15 CBC w/ auto diff EO # 10*3/u lL 0.04 0.54 0.36 FINAL Marcelo Mahmoods B&Whole Blood [facility] (T), [address], [place] [facility] [place] [address] 02/15 CBC w/ auto diff BA # 10*3/u L 0.01 0.08 0.04 FINAL Marcelo Mahmoods B&Whole Blood [facility] ([facility]), [address], [place] [facility] [place] [address] 02/15 CBC w/ auto diff Cristobal % % 34.0 67.9 46.8 FINAL Marcelo Mahmoods B&Whole Blood [facility] ([facility]), [address], [address] [facility] [place] [facility] 02/15 CBC w/ auto diff LY % % 21.8 53.1 37.7 FINAL Marcelo Mahmoods B&Whole Blood [facility] ([facility]), [address], [place] [facility] [place] [address] 02/15 CBC w/ auto diff MO % % 5.3 12.2 10.9 FINAL Marcelo Mahmoods B&Whole Blood [facility] ([facility]), [address], [place] [facility] [place] [address] 02/15 CBC w/ auto diff EO % % 0.8 7.0 4.1 FINAL Marcelo Mahmoods B&Whole Blood [facility] ([facility]), [address], [place] [facility] [place] [address] 02/15 CBC w/ auto diff BA % % 0.2 1.2 0.5 FINAL Marcelo Mahmoods B&Whole Blood [facility] ([facility]), [address], [place] [facility] [place] [address] 02/15 CBC w/ auto diff RBC 10*6/u L 4.63 6.08 5.33 FINAL Marcelo Olson B&Whole Blood Formerly [facility] ([facility]), [address], [address] [facility] [place] [facility] 02/15 CBC w/ auto diff HGB g/dL 13.7 17.5 17.4 FINAL Marcelo Olson B&Whole Blood Formerly [facility] ([facility]), [address], [address] [facility] [place] [facility] 02/15 CBC w/ auto diff HCT % 40.1 51.0 50.4 FINAL Marcelo Olson B&Whole Blood Formerly [facility] ([facility]), [address], [address] [place] [address] 02/15 CBC w/ auto diff MCV fL 79.0 92.2 94.6 High FINAL Marcelo Mahmoods B&Whole Blood Formerly [facility] ([facility]), [address], [address] [place] [address] 02/15 CBC w/ auto diff MCH pg 25.7 32.2 32.6 High FINAL Marcelo Olson B&Whole Blood Formerly [facility] ([facility]), [address], [address] [place] [address] 02/15 CBC w/ auto diff MCHC g/dL 32.3 36.5 34.5 FINAL Marcelo Olson B&Whole Blood Formerly [facility] ([facility]), [address], [address] [place] [address] 02/15 CBC w/ auto diff RDW-C V, % % 11.6 14.4 14.0 FINAL Marcelo Olson B&Whole Blood Formerly [facility] ([facility]), [address], [address] [facility] [place] [facility] 02/15 CBC w/ auto diff PLT 10*3/u L 163.0 337.0 172.0 FINAL Marcelo Mahmoods B&Whole Blood Formerly [facility] ([facility]), [address], [place] [facility] [place] [address] 05/31 CBC w/ auto diff WBC 10*3/u L 4.2 9.1 10.4 High FINAL Marcelo Mahmoods B&Whole Blood Formerly [facility] ([facility]), [address], [address] [facility] [place] [facility] 05/31 CBC w/ auto diff Cristobal # (ANC) 10*3/u L 1.78 5.38 5.26 FINAL Marcelo Olson B&Whole Blood Formerly [facility] ([facility]), [address], [address] [place] [address] 05/31 CBC w/ auto diff LY # 10*3/u L 1.32 3.57 3.84 High FINAL Marcelo Olson B&Whole Blood Formerly [facility] ([facility]), [address], [address] [place] [address] 05/31 CBC w/ auto diff MO # 10*3/u L 0.3 0.82 0.94 High FINAL Marcelo Olson B&Whole Blood Formerly [facility] ([facility]), [address], [address] [place] [address] 05/31 CBC w/ auto diff EO # 10*3/u lL 0.04 0.54 0.30 FINAL Marcelo Olson B&Whole Blood Formerly [facility] ([facility]), [address], [address] [place] [address] 05/31 CBC w/ auto diff BA # 10*3/u L 0.01 0.08 0.03 FINAL Marcelo Olson B&Whole Blood Formerly [facility] ([facility]), [address], [address] [place] [address] 05/31 CBC w/ auto diff Cristobal % % 34.0 67.9 50.7 FINAL Marcelo Olson B&Whole Blood Formerly [facility] ([facility]), [address], [address] [place] [address] 05/31 CBC w/ auto diff LY % % 21.8 53.1 37.0 FINAL Marcelo Olson B&Whole Blood [facility] ([facility]), [address], [address] [place] [address] 05/31 CBC w/ auto diff MO % % 5.3 12.2 9.1 FINAL Marcelo Mahmoods B&Whole Blood Formerly [facility] ([facility]), [address], [address] [place] [address] 05/31 CBC w/ auto diff EO % % 0.8 7.0 2.9 FINAL Marcelo Mahmoods B&Whole Blood [facility] ([facility]), [address], [address] [place] [address] 05/31 CBC w/ auto diff BA % % 0.2 1.2 0.3 FINAL Marcelo Mahmoods B&Whole Blood Formerly [facility] ([facility]), [address], [address] [place] [address] 05/31 CBC w/ auto diff RBC 10*6/u L 4.63 6.08 5.01 FINAL Marcelo Mahmoods B&Whole Blood Formerly [facility] ([facility]), [address], [address] [place] [address] 05/31 CBC w/ auto diff HGB g/dL 13.7 17.5 16.4 FINAL Marcelo Mahmoods B&Whole Blood Formerly [facility] ([facility]), [address], [address] [place] [address] 05/31 CBC w/ auto diff HCT % 40.1 51.0 47.5 FINAL Marcelo Mahmoods B&Whole Blood Formerly [facility] ([facility]), [address], [address] [place] [address] 05/31 CBC w/ auto diff MCV fL 79.0 92.2 94.8 High FINAL Marcelo Mahmoods B&Whole Blood Formerly [facility] ([facility]), [address], [address] [place] [address] 05/31 CBC w/ auto diff MCH pg 25.7 32.2 32.7 High FINAL [facility] B&Whole Blood Formerly [facility] ([facility]), [address], [address] [place] [address] 05/31 CBC w/ auto diff MCHC g/dL 32.3 36.5 34.5 FINAL Marcelo Mahmoods B&Whole Blood Formerly [facility] ([facility]), [address], [address] [place] [address] 05/31 CBC w/ auto diff RDW-C V, % % 11.6 14.4 13.8 FINAL Marcelo Mahmoods B&Whole Blood Formerly [facility] ([facility]), [address], [address] [place] [address] 05/31 CBC w/ auto diff PLT 10*3/u L 163.0 337.0 161.0 Low FINAL Marcelo Mahmoods B&Whole Blood Formerly [facility] ([facility]), [address], [address] [place] [address] 06/21 CBC w/ auto diff WBC 10*3/u L 4.2 9.1 14.1 High FINAL Marcelo [facility] ([facility]), [address], [address] [place] [address] 06/21 CBC w/ auto diff Cristobal # (ANC) 10*3/u L 1.78 5.38 10.63 High FINAL Marcelo [facility] ([facility]), [address], [address] [place] [address] 06/21 CBC w/ auto diff LY # 10*3/u L 1.32 3.57 2.09 FINAL Marcelo [facility] ([facility]), [address], [address] [place] [address] 06/21 CBC w/ auto diff MO # 10*3/u L 0.3 0.82 1.34 High FINAL Marcelo [facility] ([facility]), [address], [address] [place] [address] 06/21 CBC w/ auto diff EO # 10*3/u lL 0.04 0.54 0.03 Low FINAL Marcelo [facility] ([facility]), [address], [address] [place] [address] 06/21 CBC w/ auto diff BA # 10*3/u L 0.01 0.08 0.02 FINAL Marcelo [facility] ([facility]), [address], [address] [place] [address] 06/21 CBC w/ auto diff Cristobal % % 34.0 67.9 75.4 High FINAL Marcelo [facility] ([facility]), [address], [address] [place] [address] 06/21 CBC w/ auto diff LY % % 21.8 53.1 14.8 Low FINAL Marcelo [facility] ([facility]), [address], [address] [place] [address] 06/21 CBC w/ auto diff MO % % 5.3 12.2 9.5 FINAL Marcelo [facility] ([facility]), [address], [address] [place] [address] 06/21 CBC w/ auto diff EO % % 0.8 7.0 0.2 Low FINAL [facility] ([facility]), [address], [address] [place] [address] 06/21 CBC w/ auto diff BA % % 0.2 1.2 0.1 Low FINAL [facility] ([facility]), [address], [address] [place] [address] 06/21 CBC w/ auto diff RBC 10*6/u L 4.63 6.08 4.90 FINAL [facility] ([facility]), [address], [address] [place] [address] 06/21 CBC w/ auto diff HGB g/dL 13.7 17.5 16.0 FINAL [facility] ([facility]), [address], [address] [place] [address] 06/21 CBC w/ auto diff HCT % 40.1 51.0 47.5 FINAL [facility] ([facility]), [address], [address] [place] [address] 06/21 CBC w/ auto diff MCV fL 79.0 92.2 96.9 High FINAL [facility] ([facility]), [address], [address] [place] [address] 06/21 CBC w/ auto diff MCH pg 25.7 32.2 32.7 High FINAL [facility] ([facility]), [address], [address] [place] [address] 06/21 CBC w/ auto diff MCHC g/dL 32.3 36.5 33.7 FINAL [facility] ([facility]), [address], [address] [place] [address] 06/21 CBC w/ auto diff RDW-C V, % % 11.6 14.4 14.0 FINAL [facility] ([facility]), [address], [address] [place] [address] 06/21 CBC w/ auto diff PLT 10*3/u L 163.0 337.0 185.0 FINAL Marcelo Olson [facility] Jennifer ([facility]), [address], [address] [facility] [address] 07/23 Lab Repor t See case assembler d Medications Date Name Route Dose Frequency Instructions Start Date End Date Status Fill Status Indication 12/22 Sitagli ptin-Me tformin Oral 50 mg-1,00 0 mg orally 1.0 2 times per day active 12/22 Aspirin Oral orally 81.0 mg daily active 12/22 Insulin Detemir Subcuta neous 100 unit/mL subcutan eously 36.0 every evening active 12/22 Cyanoco balamin Oral orally 5000.0 mcg daily active 12/22 [place] 3-DHA-E PA-Fish Oil Oral Liquid 1,600 mg-500 [...] Print Location: Unknown Date/Time Printed: 10/19/2025 17:02 ([facility]) Patient: VALERIE PUENTES Sex: Male : [...] Selected Billing Code(s): PHLEBOTOMY THERAPEUTIC SEPARATE PROCEDURE (86211) Entered By Barbara Casas RN; Incident to Marcelo Olson MD * Nurse Note for: 09-NOV-19 [facility] Nurse Note Print Location: Unknown Date/Time Printed: 10/19/2025 17:02 ([facility]) Patient: VALERIE PUENTES Sex: Male : [...] Selected Billing Code(s): PHLEBOTOMY THERAPEUTIC SEPARATE PROCEDURE (53982) Entered By Ju Gupta RN; Incident to Marcelo Olson MD * Nurse Note for: 20-JUL-19 [facility] Nurse Note Print Location: Unknown Date/Time Printed: 10/19/2025 17:02 ([facility]) Patient: VALERIE PUENTES Sex: Male : [...] Selected Billing Code(s): PHLEBOTOMY THERAPEUTIC SEPARATE PROCEDURE (56317) Entered By Barbara Garcia RN; Incident to Marcelo Olson MD
--- OUTSIDE RECORDS SUMMARY | 2025-10-19 17:03 | XMS_ITS ---
Author Name Interface, [id number] lity Address [address] [place] [address] Organization [facility] Address [address] [place] [address] Allergies and Adverse Reactions Medication/Group Name Reaction [...] FINAL Marcelo Olson B&Whole Blood [facility] ([facility]), [address], [address] [place] [address] 02/15 CBC w/ auto diff Cristobal # (ANC) 10*3/u L 1.78 5.38 4.12 FINAL Marcelo Olson B&Whole Blood [facility] ([facility]), [address], [address] [place] [address] 02/15 CBC w/ auto diff LY # 10*3/u L 1.32 3.57 3.32 FINAL Marcelo Olson B&Whole Blood [facility] ([facility]), [address], [address] [place] [address] 02/15 CBC w/ auto diff MO # 10*3/u L 0.3 0.82 0.96 High FINAL Marcelo Olson B&Whole Blood [facility] ([facility]), [address], [address] [place] [address] 02/15 CBC w/ auto diff EO # 10*3/u lL 0.04 0.54 0.36 FINAL Marcelo Olson B&Whole Blood [facility] ([facility]), [address], [address] [place] [address] 02/15 CBC w/ auto diff BA # 10*3/u L 0.01 0.08 0.04 FINAL Marcelo Olson B&Whole Blood [facility] ([facility]), [address], [address] [place] [address] 02/15 CBC w/ auto diff Cristobal % % 34.0 67.9 46.8 FINAL Marcelo Olson B&Whole Blood [facility] ([facility]), [address], [address] [place] [address] 02/15 CBC w/ auto diff LY % % 21.8 53.1 37.7 FINAL Marcelo Olson B&Whole Blood [facility] (T), [address], Suite [facility] [place] [address] 02/15 CBC w/ auto diff MO % % 5.3 12.2 10.9 FINAL Marcelo Olson B&Whole Blood [facility] (T), [address], Suite [facility] [place] [facility] 02/15 CBC w/ auto diff EO % % 0.8 7.0 4.1 FINAL Marcelo Olson B&Whole Blood [facility] (T), [address], [address] [facility] [place] [facility] 02/15 CBC w/ auto diff BA % % 0.2 1.2 0.5 FINAL Marcelo Olson B&Whole Blood [facility] ([facility]), [address], [address] [facility] [place] [facility] 02/15 CBC w/ auto diff RBC 10*6/u L 4.63 6.08 5.33 FINAL Marcelo Olson B&Whole Blood [facility] ([facility]), [address], [address] [facility] [place] [facility] 02/15 CBC w/ auto diff HGB g/dL 13.7 17.5 17.4 FINAL Marcelo Olson B&Whole Blood [facility] (T), [address], [address] [place] [address] 02/15 CBC w/ auto diff HCT % 40.1 51.0 50.4 FINAL Marcelo Olson B&Whole Blood [facility] (T), [address], [address] [facility] [place] [facility] 02/15 CBC w/ auto diff MCV fL 79.0 92.2 94.6 High FINAL Marcelo Olson B&Whole Blood [facility] ([facility]), [address], [address] [facility] [place] [facility] 02/15 CBC w/ auto diff MCH pg 25.7 32.2 32.6 High FINAL Marcelo Olson B&Whole Blood [facility] (T), [address], [address] [facility] [place] [facility] 02/15 CBC w/ auto diff MCHC g/dL 32.3 36.5 34.5 FINAL Marcelo Mahmoods B&Whole Blood [facility] (T), [address], Suite [facility] [place] [address] 02/15 CBC w/ auto diff RDW-C V, % % 11.6 14.4 14.0 FINAL Marcelo Mahmoods B&Whole Blood [facility] (T), [address], [address] [place] [address] 02/15 CBC w/ auto diff PLT 10*3/u L 163.0 337.0 172.0 FINAL Mracelo Mahmoods B&Whole Blood [facility] ([facility]), [address], [address] [place] [address] 05/31 CBC w/ auto diff WBC 10*3/u L 4.2 9.1 10.4 High FINAL Marcelo Herms B&Whole Blood [facility] ([facility]), [address], [address] [place] [address] 05/31 CBC w/ auto diff Cristobal # (ANC) 10*3/u L 1.78 5.38 5.26 FINAL Marcelo Mahmoods B&Whole Blood [facility] ([facility]), [address], [address] [place] [address] 05/31 CBC w/ auto diff LY # 10*3/u L 1.32 3.57 3.84 High FINAL Marcelo Mahmoods B&Whole Blood [facility] ([facility]), [address], [address] [place] [address] 05/31 CBC w/ auto diff MO # 10*3/u L 0.3 0.82 0.94 High FINAL Marcelo Herms B&Whole Blood [facility] ([facility]), [address], [address] [place] [address] 05/31 CBC w/ auto diff EO # 10*3/u lL 0.04 0.54 0.30 FINAL Marcelo Herms B&Whole Blood [facility] (T), [address], [address] [place] [address] 05/31 CBC w/ auto diff BA # 10*3/u L 0.01 0.08 0.03 FINAL Marcelo Herms B&Whole Blood [facility] (T), [address], [address] [place] [address] 05/31 CBC w/ auto diff Cristobal % % 34.0 67.9 50.7 FINAL Marcelo Herms B&Whole Blood [facility] ([facility]), [address], [address] [facility] [place] [address] 05/31 CBC w/ auto diff LY % % 21.8 53.1 37.0 FINAL Marcelo Olson B&Whole Blood [facility] ([facility]), [address], [address] [facility] [place] [facility] 05/31 CBC w/ auto diff MO % % 5.3 12.2 9.1 FINAL Marcelo Olson B&Whole Blood [facility] ([facility]), [address], [address] [facility] [place] [facility] 05/31 CBC w/ auto diff EO % % 0.8 7.0 2.9 FINAL Marcelo Olson B&Whole Blood [facility] ([facility]), [address], [address] [place] [address] 05/31 CBC w/ auto diff BA % % 0.2 1.2 0.3 FINAL Marcelo Olson B&Whole Blood [facility] (T), [address], [address] [place] [address] 05/31 CBC w/ auto diff RBC 10*6/u L 4.63 6.08 5.01 FINAL Marcelo Olson B&Whole Blood [facility] (T), [address], [address] [place] [address] 05/31 CBC w/ auto diff HGB g/dL 13.7 17.5 16.4 FINAL Marcelo Olson B&Whole Blood [facility] ([facility]), [address], [address] [place] [address] 05/31 CBC w/ auto diff HCT % 40.1 51.0 47.5 FINAL Marcelo Olson B&Whole Blood [facility] ([facility]), [address], [address] [place] [address] 05/31 CBC w/ auto diff MCV fL 79.0 92.2 94.8 High FINAL Marcelo Mahmoods B&Whole Blood [facility] ([facility]), [address], [address] [place] [address] 05/31 CBC w/ auto diff MCH pg 25.7 32.2 32.7 High FINAL Marcelo Mahmoods B&Whole Blood [facility] ([facility]), [address], [address] [place] [address] 05/31 CBC w/ auto diff MCHC g/dL 32.3 36.5 34.5 FINAL [facility] B&Whole Blood [facility] (T), [address], [address] [place] [address] 05/31 CBC w/ auto diff RDW-C V, % % 11.6 14.4 13.8 FINAL [facility] B&Whole Blood [facility] (T), [address], [address] [place] [address] 05/31 CBC w/ auto diff PLT 10*3/u L 163.0 337.0 161.0 Low FINAL [facility] B&Whole Blood [facility] ([facility]), [address], [address] [place] [address] 06/21 CBC w/ auto diff WBC 10*3/u L 4.2 9.1 14.1 High FINAL [facility] ([facility]), [address], [address] [place] [address] 06/21 CBC w/ auto diff Cristobal # (ANC) 10*3/u L 1.78 5.38 10.63 High FINAL [facility] ([facility]), [address], [address] [place] [address] 06/21 CBC w/ auto diff LY # 10*3/u L 1.32 3.57 2.09 FINAL [facility] ([facility]), [address], [address] [place] [address] 06/21 CBC w/ auto diff MO # 10*3/u L 0.3 0.82 1.34 High FINAL [facility] ([facility]), [address], [address] [place] [address] 06/21 CBC w/ auto diff EO # 10*3/u lL 0.04 0.54 0.03 Low FINAL [facility] ([facility]), [address], [address] [place] [address] 06/21 CBC w/ auto diff BA # 10*3/u L 0.01 0.08 0.02 FINAL [facility] ([facility]), [address], [address] [place] [address] 06/21 CBC w/ auto diff Cristobal % % 34.0 67.9 75.4 High FINAL [facility] ([facility]), [address], [address] [place] [address] 06/21 CBC w/ auto diff LY % % 21.8 53.1 14.8 Low FINAL [facility] ([facility]), [address], [address] [place] [address] 06/21 CBC w/ auto diff MO % % 5.3 12.2 9.5 FINAL [facility] ([facility]), [address], [address] [place] [address] 06/21 CBC w/ auto diff EO % % 0.8 7.0 0.2 Low FINAL [facility] ([facility]), [address], [address] [place] [address] 06/21 CBC w/ auto diff BA % % 0.2 1.2 0.1 Low FINAL [facility] ([facility]), [address], [address] [place] [address] 06/21 CBC w/ auto diff RBC 10*6/u L 4.63 6.08 4.90 FINAL [facility] ([facility]), [address], [address] [place] [address] 06/21 CBC w/ auto diff HGB g/dL 13.7 17.5 16.0 FINAL [facility] ([facility]), [address], [address] [place] [address] 06/21 CBC w/ auto diff HCT % 40.1 51.0 47.5 FINAL [facility] ([facility]), [address], [address] [place] [address] 06/21 CBC w/ auto diff MCV fL 79.0 92.2 96.9 High FINAL [facility] ([facility]), [address], [address] [place] [address] 06/21 CBC w/ auto diff MCH pg 25.7 32.2 32.7 High FINAL [facility] ([facility]), [address], [address] [facility] [address] 06/21 CBC w/ auto diff MCHC g/dL 32.3 36.5 33.7 FINAL [facility] ([facility]), [address], [address] [facility] [address] 06/21 CBC w/ auto diff RDW-C V, % % 11.6 14.4 14.0 FINAL [facility] ([facility]), [address], [address] [facility] [address] 06/21 CBC w/ auto diff PLT 10*3/u L 163.0 337.0 185.0 FINAL [facility] ([facility]), [address], [address] [facility] [address] 07/23 Lab Repor t See finance professor d Medications Date Name Route Dose Frequency Instructions Start Date End Date Status Fill Status Indication 12/22 Sitagli ptin-Me tformin Oral 50 mg-1,00 0 mg orally 1.0 2 times per day active 12/22 Aspirin Oral orally 81.0 mg daily active 12/22 Insulin Detemir Subcuta neous 100 unit/mL subcutan eously 36.0 every evening active 12/22 Cyanoco balamin Oral orally 5000.0 mcg daily active 12/22 [place] 3-DHA-E PA-Fish Oil Oral Liquid 1,600 mg-500 [...] Print Location: Unknown Date/Time Printed: 10/19/2025 17:02 ([facility]) Patient: VALERIE PUENTES Sex: Male [...] Selected Billing Code(s): PHLEBOTOMY THERAPEUTIC SEPARATE PROCEDURE (23772) Entered By Barbara Casas RN; Incident to Marcelo Olson MD
--- OUTSIDE RECORDS SUMMARY | 2025-10-19 17:03 | XMS_ITS ---
Author Name Interface, [id number] lity Address [address] [place] [address] Organization [facility] Address [address] [place] [address] Allergies and Adverse Reactions Medication/Group Name Reaction [...] 9.1 8.8 FINAL Marcelo Olson B&Whole Blood [facility] ([facility]), [address], [address] [place] [address] 02/15 CBC w/ auto diff Cristobal # (ANC) 10*3/u L 1.78 5.38 4.12 FINAL Marcelo Olson B&Whole Blood [facility] ([facility]), [address] [facility], [address] [place] [address] 02/15 CBC w/ auto diff LY # 10*3/u L 1.32 3.57 3.32 FINAL Marcelo Olson B&Whole Blood [facility] ([facility]), [address], [address] [place] [address] 02/15 CBC w/ auto diff MO # 10*3/u L 0.3 0.82 0.96 High FINAL Marcelo Olson B&Whole Blood [facility] ([facility]), [address], [address] [place] [address] 02/15 CBC w/ auto diff EO # 10*3/u lL 0.04 0.54 0.36 FINAL Marcelo Olson B&Whole Blood [facility] ([facility]), [address], [address] [place] [address] 02/15 CBC w/ auto diff BA # 10*3/u L 0.01 0.08 0.04 FINAL Marcelo Olson B&Whole Blood [facility] ([facility]), [address] [facility], [address] [place] [address] 02/15 CBC w/ auto diff Cristobal % % 34.0 67.9 46.8 FINAL Marcelo Olson B&Whole Blood [facility] ([facility]), [address], [address] [place] [address] 02/15 CBC w/ auto diff LY % % 21.8 53.1 37.7 FINAL Marcelo Olson B&Whole Blood [facility] (T), [address], [place] [facility] [place] [address] 02/15 CBC w/ auto diff MO % % 5.3 12.2 10.9 FINAL Marcelo Olson B&Whole Blood [facility] (T), [address], Suite [facility] [place] [facility] 02/15 CBC w/ auto diff EO % % 0.8 7.0 4.1 FINAL Marcelo Olson B&Whole Blood [facility] (T), [address], [address] [facility] [place] [facility] 02/15 CBC w/ auto diff BA % % 0.2 1.2 0.5 FINAL Marcelo Olson B&Whole Blood [facility] ([facility]), [address], Suite [facility] [place] [facility] 02/15 CBC w/ auto diff RBC 10*6/u L 4.63 6.08 5.33 FINAL Marcelo Olson B&Whole Blood [facility] ([facility]), [address], Suite [facility] [place] [facility] 02/15 CBC w/ auto diff HGB g/dL 13.7 17.5 17.4 FINAL Marcelo Olson B&Whole Blood [facility] (T), [address], [address] [place] [address] 02/15 CBC w/ auto diff HCT % 40.1 51.0 50.4 FINAL Marcelo Olson B&Whole Blood [facility] (T), [address], [address] [facility] [place] [facility] 02/15 CBC w/ auto diff MCV fL 79.0 92.2 94.6 High FINAL Marcelo Olson B&Whole Blood [facility] ([facility]), [address], Suite [facility] [place] [facility] 02/15 CBC w/ auto diff MCH pg 25.7 32.2 32.6 High FINAL Marcelo Olson B&Whole Blood [facility] (T), [address], Suite [facility] [place] [facility] 02/15 CBC w/ auto diff MCHC g/dL 32.3 36.5 34.5 FINAL Marcelo Mahmoods B&Whole Blood [facility] (T), [address], Suite [facility] [place] [address] 02/15 CBC w/ auto diff RDW-C V, % % 11.6 14.4 14.0 FINAL Marcelo Mahmoods B&Whole Blood [facility] (T), [address], [address] [place] [address] 02/15 CBC w/ auto diff PLT 10*3/u L 163.0 337.0 172.0 FINAL Marcelo Mahmoods B&Whole Blood [facility] (T), [address], [address] [place] [address] 05/31 CBC w/ auto diff WBC 10*3/u L 4.2 9.1 10.4 High FINAL Marcelo Herms B&Whole Blood [facility] (T), [address], [address] [place] [address] 05/31 CBC w/ auto diff Cristobal # (ANC) 10*3/u L 1.78 5.38 5.26 FINAL Marcelo Mahmoods B&Whole Blood [facility] (T), [address], [address] [place] [address] 05/31 CBC w/ auto diff LY # 10*3/u L 1.32 3.57 3.84 High FINAL Marcelo Mahmoods B&Whole Blood [facility] (T), [address], [address] [place] [address] 05/31 CBC w/ auto diff MO # 10*3/u L 0.3 0.82 0.94 High FINAL Marcelo Herms B&Whole Blood [facility] (T), [address], [address] [place] [address] 05/31 CBC w/ auto diff EO # 10*3/u lL 0.04 0.54 0.30 FINAL Marcelo Herms B&Whole Blood [facility] (T), [address], [address] [place] [address] 05/31 CBC w/ auto diff BA # 10*3/u L 0.01 0.08 0.03 FINAL Marcelo Herms B&Whole Blood [facility] (T), [address], [address] [place] [address] 05/31 CBC w/ auto diff Cristobal % % 34.0 67.9 50.7 FINAL Marcelo Herms B&Whole Blood [facility] ([facility]), [address], [place] [facility] [place] [address] 05/31 CBC w/ auto diff LY % % 21.8 53.1 37.0 FINAL Marcelo Olson B&Whole Blood [facility] ([facility]), [address], Suite [facility] [place] [facility] 05/31 CBC w/ auto diff MO % % 5.3 12.2 9.1 FINAL Marcelo Olson B&Whole Blood [facility] ([facility]), [address], Suite [facility] [place] [facility] 05/31 CBC w/ auto diff EO % % 0.8 7.0 2.9 FINAL Marcelo Olson B&Whole Blood [facility] ([facility]), [address], [address] [place] [address] 05/31 CBC w/ auto diff BA % % 0.2 1.2 0.3 FINAL Marcelo Olson B&Whole Blood [facility] (T), [address], [address] [place] [address] 05/31 CBC w/ auto diff RBC 10*6/u L 4.63 6.08 5.01 FINAL Marcelo Olson B&Whole Blood [facility] (T), [address], [address] [place] [address] 05/31 CBC w/ auto diff HGB g/dL 13.7 17.5 16.4 FINAL Marcelo Olson B&Whole Blood [facility] ([facility]), [address], [address] [place] [address] 05/31 CBC w/ auto diff HCT % 40.1 51.0 47.5 FINAL Marcelo Olson B&Whole Blood [facility] ([facility]), [address], [address] [place] [address] 05/31 CBC w/ auto diff MCV fL 79.0 92.2 94.8 High FINAL Marcelo Mahmoods B&Whole Blood [facility] ([facility]), [address], [address] [place] [address] 05/31 CBC w/ auto diff MCH pg 25.7 32.2 32.7 High FINAL Marcelo Mahmoods B&Whole Blood [facility] ([facility]), [address], [address] [place] [address] 05/31 CBC w/ auto diff MCHC g/dL 32.3 36.5 34.5 FINAL [facility] B&Whole Blood [facility] (T), [address], [address] [place] [address] 05/31 CBC w/ auto diff RDW-C V, % % 11.6 14.4 13.8 FINAL [facility] B&Whole Blood [facility] (T), [address], [address] [place] [address] 05/31 CBC w/ auto diff PLT 10*3/u L 163.0 337.0 161.0 Low FINAL [facility] B&Whole Blood [facility] ([facility]), [address], [address] [place] [address] 06/21 CBC w/ auto diff WBC 10*3/u L 4.2 9.1 14.1 High FINAL [facility] ([facility]), [address], [address] [place] [address] 06/21 CBC w/ auto diff Cristobal # (ANC) 10*3/u L 1.78 5.38 10.63 High FINAL [facility] ([facility]), [address], [address] [place] [address] 06/21 CBC w/ auto diff LY # 10*3/u L 1.32 3.57 2.09 FINAL [facility] ([facility]), [address], [address] [place] [address] 06/21 CBC w/ auto diff MO # 10*3/u L 0.3 0.82 1.34 High FINAL [facility] ([facility]), [address], [address] [place] [address] 06/21 CBC w/ auto diff EO # 10*3/u lL 0.04 0.54 0.03 Low FINAL [facility] ([facility]), [address], [address] [place] [address] 06/21 CBC w/ auto diff BA # 10*3/u L 0.01 0.08 0.02 FINAL [facility] ([facility]), [address], [address] [place] [address] 06/21 CBC w/ auto diff Cristobal % % 34.0 67.9 75.4 High FINAL [facility] ([facility]), [address], [address] [place] [address] 06/21 CBC w/ auto diff LY % % 21.8 53.1 14.8 Low FINAL [facility] ([facility]), [address], [address] [place] [address] 06/21 CBC w/ auto diff MO % % 5.3 12.2 9.5 FINAL [facility] ([facility]), [address], [address] [place] [address] 06/21 CBC w/ auto diff EO % % 0.8 7.0 0.2 Low FINAL [facility] ([facility]), [address], [address] [place] [address] 06/21 CBC w/ auto diff BA % % 0.2 1.2 0.1 Low FINAL [facility] ([facility]), [address], [address] [place] [address] 06/21 CBC w/ auto diff RBC 10*6/u L 4.63 6.08 4.90 FINAL [facility] ([facility]), [address], [address] [place] [address] 06/21 CBC w/ auto diff HGB g/dL 13.7 17.5 16.0 FINAL [facility] ([facility]), [address], [address] [place] [address] 06/21 CBC w/ auto diff HCT % 40.1 51.0 47.5 FINAL [facility] ([facility]), [address], [address] [place] [address] 06/21 CBC w/ auto diff MCV fL 79.0 92.2 96.9 High FINAL [facility] ([facility]), [address], [address] [place] [address] 06/21 CBC w/ auto diff MCH pg 25.7 32.2 32.7 High FINAL [facility] ([facility]), [address], [address] [facility] [address] 06/21 CBC w/ auto diff MCHC g/dL 32.3 36.5 33.7 FINAL [facility] ([facility]), [address], [address] [facility] [address] 06/21 CBC w/ auto diff RDW-C V, % % 11.6 14.4 14.0 FINAL [facility] ([facility]), [address], [address] [facility] [address] 06/21 CBC w/ auto diff PLT 10*3/u L 163.0 337.0 185.0 FINAL [facility] ([facility]), [address], [address] [facility] [address] 07/23 Lab Repor t See chemist proteins d Medications Date Name Route Dose Frequency Instructions Start Date End Date Status Fill Status Indication 12/22 Sitagli ptin-Me tformin Oral 50 mg-1,00 0 mg orally 1.0 2 times per day active 12/22 Aspirin Oral orally 81.0 mg daily active 12/22 Insulin Detemir Subcuta neous 100 unit/mL subcutan eously 36.0 every evening active 12/22 Cyanoco balamin Oral orally 5000.0 mcg daily active 12/22 [place] 3-DHA-E PA-Fish Oil Oral Liquid 1,600 mg-500 [...] Note Print Location: Unknown Date/Time Printed: 10/19/2025 17:03 ([facility]) Patient: VALERIE PUENTES Sex: Male : [...] Selected Billing Code(s): PHLEBOTOMY THERAPEUTIC SEPARATE PROCEDURE (69231) Entered By Barbara Casas RN; Incident to Marcelo Olson MD
--- OUTSIDE RECORDS SUMMARY | 2025-10-19 17:03 | XMS_ITS ---
Author Name Interface, [id number] lity Address [address] [place] [address] Organization [facility] Address [address] [place] [address] Allergies and Adverse Reactions Medication/Group Name Reaction [...] L 4.2 9.1 14.1 High FINAL Marcelo [facility] ([facility]), [address], [address] [facility] [address] 06/21 CBC w/ auto diff Cristobal # (ANC) 10*3/u L 1.78 5.38 10.63 High FINAL Marcelo [facility] ([facility]), [address], [address] [facility] [address] 06/21 CBC w/ auto diff LY # 10*3/u L 1.32 3.57 2.09 FINAL [facility] ([facility]), [address], [address] [facility] [address] 06/21 CBC w/ auto diff MO # 10*3/u L 0.3 0.82 1.34 High FINAL Marcelo [facility] ([facility]), [address], [address] [place] [address] 06/21 CBC w/ auto diff EO # 10*3/u lL 0.04 0.54 0.03 Low FINAL Marcelo [facility] ([facility]), [address], [address] [place] [address] 06/21 CBC w/ auto diff BA # 10*3/u L 0.01 0.08 0.02 FINAL Marcelo [facility] ([facility]), [address], [address] [place] [address] 06/21 CBC w/ auto diff Cristobal % % 34.0 67.9 75.4 High FINAL Marcelo [facility] ([facility]), [address], [address] [place] [address] 06/21 CBC w/ auto diff LY % % 21.8 53.1 14.8 Low FINAL Marcelo [facility] ([facility]), [address], [address] [place] [address] 06/21 CBC w/ auto diff MO % % 5.3 12.2 9.5 FINAL Marcelo [facility] ([facility]), [address], [address] [place] [address] 06/21 CBC w/ auto diff EO % % 0.8 7.0 0.2 Low FINAL Marcelo [facility] ([facility]), [address], [address] [place] [address] 06/21 CBC w/ auto diff BA % % 0.2 1.2 0.1 Low FINAL Marcelo [facility] ([facility]), [address], [address] [place] [address] 06/21 CBC w/ auto diff RBC 10*6/u L 4.63 6.08 4.90 FINAL Marcelo [facility] ([facility]), [address], [address] [place] [address] 06/21 CBC w/ auto diff HGB g/dL 13.7 17.5 16.0 FINAL [facility] ([facility]), [address], [address] [place] [address] 06/21 CBC w/ auto diff HCT % 40.1 51.0 47.5 FINAL [facility] ([facility]), [address], [address] [place] [address] 06/21 CBC w/ auto diff MCV fL 79.0 92.2 96.9 High FINAL [facility] ([facility]), [address], [address] [place], [place] [address] 06/21 CBC w/ auto diff MCH pg 25.7 32.2 32.7 High FINAL [facility] ([facility]), [address], [address] [place] [address] 06/21 CBC w/ auto diff MCHC g/dL 32.3 36.5 33.7 FINAL [facility] ([facility]), [address], [address] [facility] [address] 06/21 CBC w/ auto diff RDW-C V, % % 11.6 14.4 14.0 FINAL [facility] ([facility]), [address], [address] [facility] [address] 06/21 CBC w/ auto diff PLT 10*3/u L 163.0 337.0 185.0 FINAL [facility] ([facility]), [address], [address] [place], [place] [address] 07/23 Lab Repor t See security support analyst d Medications Date Name Route Dose [...] Oral orally 5000.0 mcg daily active 12/22 [place] 3-DHA-E PA-Fish Oil Oral Liquid 1,600 mg-500 [...]
--- OUTSIDE RECORDS SUMMARY | 2025-10-19 17:03 | XMS_ITS ---
Author Name Interface, [id number] lity Address [address] [place] [address] Organization [facility] Address [address] [place] [address] Allergies and Adverse Reactions Medication/Group Name Reaction [...] 9.1 8.8 FINAL Marcelo Olson B&Whole Blood [facility] ([facility]), [address], [address] [place] [address] 02/15 CBC w/ auto diff Cristobal # (ANC) 10*3/u L 1.78 5.38 4.12 FINAL Marcelo Olson B&Whole Blood [facility] ([facility]), [address], [address] [place] [address] 02/15 CBC w/ auto diff LY # 10*3/u L 1.32 3.57 3.32 FINAL Marcelo Olson B&Whole Blood [facility] ([facility]), [address], [address] [place] [address] 02/15 CBC w/ auto diff MO # 10*3/u L 0.3 0.82 0.96 High FINAL Marcelo Olson B&Whole Blood [facility] ([facility]), [address], [address] [place] [address] 02/15 CBC w/ auto diff EO # 10*3/u lL 0.04 0.54 0.36 FINAL Marcelo Olson B&Whole Blood [facility] ([facility]), [address], [address] [place] [address] 02/15 CBC w/ auto diff BA # 10*3/u L 0.01 0.08 0.04 FINAL Marcelo Olson B&Whole Blood [facility] ([facility]), [address], [address] [place] [address] 02/15 CBC w/ auto diff Cristobal % % 34.0 67.9 46.8 FINAL Marcelo Olson B&Whole Blood [facility] ([facility]), [address], [address] [place] [address] 02/15 CBC w/ auto diff LY % % 21.8 53.1 37.7 FINAL Marcelo Olson B&Whole Blood [facility] ([facility]), [address], [place] [address] 02/15 CBC w/ auto diff MO % % 5.3 12.2 10.9 FINAL Marcelo Olson B&Whole Blood [facility] ([facility]), [address], Suite [facility] [place] [facility] 02/15 CBC w/ auto diff EO % % 0.8 7.0 4.1 FINAL Marcelo Olson B&Whole Blood [facility] ([facility]), [address], Suite [facility] [place] [facility] 02/15 CBC w/ auto diff BA % % 0.2 1.2 0.5 FINAL Marcelo Olson B&Whole Blood [facility] ([facility]), [address], Suite [facility] [place] [facility] 02/15 CBC w/ auto diff RBC 10*6/u L 4.63 6.08 5.33 FINAL Marcelo Olson B&Whole Blood [facility] ([facility]), [address], Suite [facility] [place] [facility] 02/15 CBC w/ auto diff HGB g/dL 13.7 17.5 17.4 FINAL Marcelo Olsno B&Whole Blood [facility] ([facility]), [address], [address] [place] [address] 02/15 CBC w/ auto diff HCT % 40.1 51.0 50.4 FINAL Marcelo Olson B&Whole Blood [facility] ([facility]), [address], Suite [facility] [place] [facility] 02/15 CBC w/ auto diff MCV fL 79.0 92.2 94.6 High FINAL Marcelo Olson B&Whole Blood [facility] ([facility]), [address], Suite [facility] [place] [facility] 02/15 CBC w/ auto diff MCH pg 25.7 32.2 32.6 High FINAL Marcelo Olson B&Whole Blood [facility] ([facility]), [address], Suite [facility] [place] [facility] 02/15 CBC w/ auto diff MCHC g/dL 32.3 36.5 34.5 FINAL Marcelo Mahmoods B&Whole Blood [facility] ([facility]), [address], Suite [facility] [place] [address] 02/15 CBC w/ auto diff RDW-C V, % % 11.6 14.4 14.0 FINAL Marcelo Mahmoods B&Whole Blood [facility] (T), [address], [address] [place] [address] 02/15 CBC w/ auto diff PLT 10*3/u L 163.0 337.0 172.0 FINAL Marcelo Mahmoods B&Whole Blood [facility] ([facility]), [address], [address] [place] [address] 05/31 CBC w/ auto diff WBC 10*3/u L 4.2 9.1 10.4 High FINAL Marcelo Herms B&Whole Blood [facility] ([facility]), [address], [address] [place] [address] 05/31 CBC w/ auto diff Cristobal # (ANC) 10*3/u L 1.78 5.38 5.26 FINAL Marcelo Mahmoods B&Whole Blood [facility] ([facility]), [address], [address] [place] [address] 05/31 CBC w/ auto diff LY # 10*3/u L 1.32 3.57 3.84 High FINAL Marcelo Mahmoods B&Whole Blood [facility] ([facility]), [address], [address] [place] [address] 05/31 CBC w/ auto diff MO # 10*3/u L 0.3 0.82 0.94 High FINAL Marcelo Herms B&Whole Blood [facility] ([facility]), [address], [address] [place] [address] 05/31 CBC w/ auto diff EO # 10*3/u lL 0.04 0.54 0.30 FINAL Marcelo Herms B&Whole Blood [facility] ([facility]), [address], [address] [place] [address] 05/31 CBC w/ auto diff BA # 10*3/u L 0.01 0.08 0.03 FINAL Marcelo Herms B&Whole Blood [facility] ([facility]), [address], [address] [place] [address] 05/31 CBC w/ auto diff Cristobal % % 34.0 67.9 50.7 FINAL Marcelo Herms B&Whole Blood [facility] ([facility]), [address], [place] [facility] [place] [address] 05/31 CBC w/ auto diff LY % % 21.8 53.1 37.0 FINAL Marcelo Olson B&Whole Blood [facility] ([facility]), [address], Suite [facility] [place] [facility] 05/31 CBC w/ auto diff MO % % 5.3 12.2 9.1 FINAL Marcelo Olson B&Whole Blood [facility] ([facility]), [address], Suite [facility] [place] [facility] 05/31 CBC w/ auto diff EO % % 0.8 7.0 2.9 FINAL Marcelo Olson B&Whole Blood [facility] ([facility]), [address], [address] [place] [address] 05/31 CBC w/ auto diff BA % % 0.2 1.2 0.3 FINAL Marcelo Olson B&Whole Blood [facility] ([facility]), [address], [address] [place] [address] 05/31 CBC w/ auto diff RBC 10*6/u L 4.63 6.08 5.01 FINAL Marcelo Olson B&Whole Blood [facility] ([facility]), [address], [address] [place] [address] 05/31 CBC w/ auto diff HGB g/dL 13.7 17.5 16.4 FINAL Marcelo Olson B&Whole Blood [facility] ([facility]), [address], [address] [place] [address] 05/31 CBC w/ auto diff HCT % 40.1 51.0 47.5 FINAL Marcelo Olson B&Whole Blood [facility] ([facility]), [address], [address] [place] [address] 05/31 CBC w/ auto diff MCV fL 79.0 92.2 94.8 High FINAL Marcelo Mahmoods B&Whole Blood [facility] ([facility]), [address], [address] [place] [address] 05/31 CBC w/ auto diff MCH pg 25.7 32.2 32.7 High FINAL Marcelo Mahmoods B&Whole Blood [facility] ([facility]), [address], [address] [place] [address] 05/31 CBC w/ auto diff MCHC g/dL 32.3 36.5 34.[address] [facility] B&Whole Blood [facility] ([facility]), [address], [address] [place] [address] 05/31 CBC w/ auto diff RDW-C V, % % 11.6 14.4 13.[address] [facility] B&Whole Blood [facility] ([facility]), [address], [address] [place] [address] 05/31 CBC w/ auto diff PLT 10*3/u L 163.0 337.0 161.[address] [facility] B&Whole Blood [facility] ([facility]), [address], [address] [place] [address] 06/21 CBC w/ auto diff WBC 10*3/u L 4.2 9.1 14.1 High FINAL [facility] ([facility]), [address], [address] [place] [address] 06/21 CBC w/ auto diff Cristobal # (ANC) 10*3/u L 1.78 5.38 10.63 High FINAL [facility] ([facility]), [address], [address] [place] [address] 06/21 CBC w/ auto diff LY # 10*3/u L 1.32 3.57 2.09 FINAL [facility] ([facility]), [address], [address] [place] [address] 06/21 CBC w/ auto diff MO # 10*3/u L 0.3 0.82 1.34 High FINAL [facility] ([facility]), [address], [address] [place] [address] 06/21 CBC w/ auto diff EO # 10*3/u lL 0.04 0.54 0.03 Low FINAL [facility] ([facility]), [address], [address] [place] [address] 06/21 CBC w/ auto diff BA # 10*3/u L 0.01 0.08 0.02 FINAL [facility] ([facility]), [address], [address] [place] [address] 06/21 CBC w/ auto diff Cristobal % % 34.0 67.9 75.4 High FINAL [facility] ([facility]), [address], [address] [place] [address] 06/21 CBC w/ auto diff LY % % 21.8 53.1 14.8 Low FINAL [facility] ([facility]), [address], [address] [place] [address] 06/21 CBC w/ auto diff MO % % 5.3 12.2 9.5 FINAL [facility] ([facility]), [address], [address] [place] [address] 06/21 CBC w/ auto diff EO % % 0.8 7.0 0.2 Low FINAL [facility] ([facility]), [address], [address] [place] [address] 06/21 CBC w/ auto diff BA % % 0.2 1.2 0.1 Low FINAL [facility] ([facility]), [address], [address] [place] [address] 06/21 CBC w/ auto diff RBC 10*6/u L 4.63 6.08 4.90 FINAL [facility] ([facility]), [address], [address] [place] [address] 06/21 CBC w/ auto diff HGB g/dL 13.7 17.5 16.0 FINAL [facility] ([facility]), [address], [address] [place] [address] 06/21 CBC w/ auto diff HCT % 40.1 51.0 47.5 FINAL [facility] ([facility]), [address], [address] [place] [address] 06/21 CBC w/ auto diff MCV fL 79.0 92.2 96.9 High FINAL [facility] ([facility]), [address], [address] [place] [address] 06/21 CBC w/ auto diff MCH pg 25.7 32.2 32.7 High FINAL [facility] ([facility]), [address], [address] [facility] [address] 06/21 CBC w/ auto diff MCHC g/dL 32.3 36.5 33.7 FINAL [facility] ([facility]), [address], [address] [facility] [address] 06/21 CBC w/ auto diff RDW-C V, % % 11.6 14.4 14.0 FINAL [facility] ([facility]), [address], [address] [facility] [address] 06/21 CBC w/ auto diff PLT 10*3/u L 163.0 337.0 185.0 FINAL [facility] ([facility]), [address], [address] [facility] [address] 07/23 Lab Repor t See clearance center manager d Medications Date Name Route Dose Frequency Instructions Start Date End Date Status Fill Status Indication 12/22 Sitagli ptin-Me tformin Oral 50 mg-1,00 0 mg orally 1.0 2 times per day active 12/22 Aspirin Oral orally 81.0 mg daily active 12/22 Insulin Detemir Subcuta neous 100 unit/mL subcutan eously 36.0 every evening active 12/22 Cyanoco balamin Oral orally 5000.0 mcg daily active 12/22 [place] 3-DHA-E PA-Fish Oil Oral Liquid 1,600 mg-500 [...] Print Location: Unknown Date/Time Printed: 10/19/2025 17:03 ([facility]) Patient: VALERIE PUENTES Sex: Male [...] Selected Billing Code(s): PHLEBOTOMY THERAPEUTIC SEPARATE PROCEDURE (94223) Entered By Barbara Casas RN; Incident to Marcelo Olson MD
--- OUTSIDE RECORDS SUMMARY | 2025-10-19 17:03 | XMS_ITS | CCD ---
Author Name Interface, [id number] lity Address [address] [id number] Organization [facility] Address [address] [place] [id number] Care Team Providers Care Director Of Nuclear Medicine Name Role Phone Whitney HUGHES, Marcelo Munguia [...] Oral orally 25.0 mg daily active 12/22 [place] 3-DHA-E PA-Fish Oil Oral Liquid 1,600 mg-500 [...]
--- OUTSIDE RECORDS SUMMARY | 2025-10-19 17:03 | XMS_ITS ---
Author Name Interface, [id number] lity Address [address] [place] [address] Organization [facility] Address [address] [place] [address] Allergies and Adverse Reactions Medication/Group Name Reaction [...] 9.1 High FINAL Marcelo Olson B&Whole Blood [facility] ([facility]), [address], [address] [place] [address] 07/20 CBC w/ auto diff Cristobal # (ANC) 10*3/u L 1.78 5.38 4.47 FINAL Marcelo Olson B&Whole Blood [facility] ([facility]), [address], Suite [facility] [place] [facility] 07/20 CBC w/ auto diff LY # 10*3/u L 1.32 3.57 3.40 FINAL Marcelo Olson B&Whole Blood [facility] ([facility]), [address], [address] [place], [place] [id number] 07/20 CBC w/ auto diff MO # 10*3/u L 0.3 0.82 0.80 FINAL Marcelo Olson B&Whole Blood [facility] ([facility]), [address], [place] [facility] [place] [address] 07/20 CBC w/ auto diff EO # 10*3/u lL 0.04 0.54 0.38 FINAL Marcelo Olson B&Whole Blood [facility] ([facility]), [address], [place] [facility] [place] [address] 07/20 CBC w/ auto diff BA # 10*3/u L 0.01 0.08 0.03 FINAL Marcelo Funez&Whole Blood [facility] ([facility]), [address], [address] [place] [address] 07/20 CBC w/ auto diff Cristobal % % 34.0 67.9 49.3 FINAL Marcelo Herms B&Whole Blood [facility] ([facility]), [address], [address] [place] [address] 07/20 CBC w/ auto diff LY % % 21.8 53.1 37.4 FINAL Marcelo Herms B&Whole Blood [facility] (T), [address], [address] [place] [address] 07/20 CBC w/ auto diff MO % % 5.3 12.2 8.8 FINAL Marcelo Herms B&Whole Blood [facility] ([facility]), [address], [address] [place] [address] 07/20 CBC w/ auto diff EO % % 0.8 7.0 4.2 FINAL Marcelo Herms B&Whole Blood [facility] ([facility]), [address], [address] [place] [address] 07/20 CBC w/ auto diff BA % % 0.2 1.2 0.3 FINAL Marcelo Herms B&Whole Blood [facility] ([facility]), [address], [address] [place] [address] 07/20 CBC w/ auto diff RBC 10*6/u L 4.63 6.08 5.60 FINAL Marcelo Herms B&Whole Blood [facility] ([facility]), [address], [address] [place] [address] 07/20 CBC w/ auto diff HGB g/dL 13.7 17.5 18.2 High FINAL Marcelo Herms B&Whole Blood [facility] ([facility]), [address], [address] [place] [address] 07/20 CBC w/ auto diff HCT % 40.1 51.0 52.8 High FINAL Marcelo Herms B&Whole Blood [facility] ([facility]), [address], [address] [place] [address] 07/20 CBC w/ auto diff MCV fL 79.0 92.2 94.3 High FINAL Marcelo Herms B&Whole Blood [facility] ([facility]), [address], [address] [place] [address] 07/20 CBC w/ auto diff MCH pg 25.7 32.2 32.5 High FINAL Marcelo Herms B&Whole Blood [facility] ([facility]), [address], [address] [place] [address] 07/20 CBC w/ auto diff MCHC g/dL 32.3 36.5 34.5 FINAL Marcelo Herms B&Whole Blood [facility] ([facility]), [address], [address] [place] [address] 07/20 CBC w/ auto diff RDW-C V, % % 11.6 14.4 12.5 FINAL Marcelo Herms B&Whole Blood [facility] ([facility]), [address], [address] [place] [address] 07/20 CBC w/ auto diff PLT 10*3/u L 163.0 337.0 160.0 Low FINAL Marcelo Herms B&Whole Blood [facility] ([facility]), [address], [address] [place] [address] 11/09 CBC w/ auto diff WBC 10*3/u [...] Blood 5 02/12 Lab Repor t See food service worker d 02/15 CBC w/ auto diff WBC 10*3/u L 4.2 9.1 8.8 FINAL Marcelo Olson B&Whole Blood [facility] ([facility]), [address], [address] [place] [address] 02/15 CBC w/ auto diff Cristobal # (ANC) 10*3/u L 1.78 5.38 4.12 FINAL Marcelo Mahmoods B&Whole Blood [facility] ([facility]), [address], [place] [facility] [place] [address] 02/15 CBC w/ auto diff LY # 10*3/u L 1.32 3.57 3.32 FINAL Marcelo Mahmoods B&Whole Blood [facility] ([facility]), [address], [place] [facility] [place] [address] 02/15 CBC w/ auto diff MO # 10*3/u L 0.3 0.82 0.96 High FINAL Marcelo Mahmoods B&Whole Blood [facility] ([facility]), [address], [place] [facility] [place] [address] 02/15 CBC w/ auto diff EO # 10*3/u lL 0.04 0.54 0.36 FINAL Marcelo Mahmoods B&Whole Blood [facility] ([facility]), [address], [place] [facility] [place] [address] 02/15 CBC w/ auto diff BA # 10*3/u L 0.01 0.08 0.04 FINAL Marcelo Mahmoods B&Whole Blood [facility] ([facility]), [address], [place] [facility] [place] [address] 02/15 CBC w/ auto diff Cristobal % % 34.0 67.9 46.8 FINAL Marcelo Mahmoods B&Whole Blood [facility] ([facility]), [address], [address] [facility] [place] [facility] 02/15 CBC w/ auto diff LY % % 21.8 53.1 37.7 FINAL Marcelo Mahmoods B&Whole Blood [facility] ([facility]), [address], [place] [facility] [place] [address] 02/15 CBC w/ auto diff MO % % 5.3 12.2 10.9 FINAL Marcelo Mahmoods B&Whole Blood [facility] ([facility]), [address], [place] [facility] [place] [address] 02/15 CBC w/ auto diff EO % % 0.8 7.0 4.1 FINAL Marcelo Mahmoods B&Whole Blood [facility] ([facility]), [address], [place] [facility] [place] [address] 02/15 CBC w/ auto diff BA % % 0.2 1.2 0.5 FINAL Marcelo Mahmoods B&Whole Blood [facility] ([facility]), [address], [place] [facility] [place] [address] 02/15 CBC w/ auto diff RBC 10*6/u L 4.63 6.08 5.33 FINAL Marcelo Olson B&Whole Blood [facility] ([facility]), [address], [address] [facility] [place] [facility] 02/15 CBC w/ auto diff HGB g/dL 13.7 17.5 17.4 FINAL Marcelo Olson B&Whole Blood [facility] ([facility]), [address], [address] [facility] [place] [facility] 02/15 CBC w/ auto diff HCT % 40.1 51.0 50.4 FINAL Marcelo Olson B&Whole Blood [facility] ([facility]), [address], [address] [place] [address] 02/15 CBC w/ auto diff MCV fL 79.0 92.2 94.6 High FINAL Marcelo Mahmoods B&Whole Blood [facility] ([facility]), [address], [address] [place] [address] 02/15 CBC w/ auto diff MCH pg 25.7 32.2 32.6 High FINAL Marcelo Olson B&Whole Blood [facility] ([facility]), [address], [address] [place] [address] 02/15 CBC w/ auto diff MCHC g/dL 32.3 36.5 34.5 FINAL Marcelo Olson B&Whole Blood [facility] ([facility]), [address], [address] [place] [address] 02/15 CBC w/ auto diff RDW-C V, % % 11.6 14.4 14.0 FINAL Marcelo Olson B&Whole Blood [facility] ([facility]), [address], [address] [facility] [place] [facility] 02/15 CBC w/ auto diff PLT 10*3/u L 163.0 337.0 172.0 FINAL Marcelo Mahmoods B&Whole Blood [facility] ([facility]), [address], [place] [facility] [place] [address] 05/31 CBC w/ auto diff WBC 10*3/u L 4.2 9.1 10.4 High FINAL Marcelo Mahmoods B&Whole Blood [facility] ([facility]), [address], [address] [facility] [place] [facility] 05/31 CBC w/ auto diff Cristobal # (ANC) 10*3/u L 1.78 5.38 5.26 FINAL Marcelo Olson B&Whole Blood [facility] (T), [address], [address] [place] [address] 05/31 CBC w/ auto diff LY # 10*3/u L 1.32 3.57 3.84 High FINAL Marcelo Olson B&Whole Blood [facility] (T), [address], [address] [place] [address] 05/31 CBC w/ auto diff MO # 10*3/u L 0.3 0.82 0.94 High FINAL Marcelo Olson B&Whole Blood [facility] ([facility]), [address], [address] [place] [address] 05/31 CBC w/ auto diff EO # 10*3/u lL 0.04 0.54 0.30 FINAL Marcelo Olson B&Whole Blood [facility] ([facility]), [address], [address] [place] [address] 05/31 CBC w/ auto diff BA # 10*3/u L 0.01 0.08 0.03 FINAL Marcelo Olson B&Whole Blood [facility] ([facility]), [address], [address] [place] [address] 05/31 CBC w/ auto diff Cristobal % % 34.0 67.9 50.7 FINAL Marcelo Olson B&Whole Blood [facility] ([facility]), [address], [address] [place] [address] 05/31 CBC w/ auto diff LY % % 21.8 53.1 37.0 FINAL Marcelo Olson B&Whole Blood [facility] (T), [address], [address] [place] [address] 05/31 CBC w/ auto diff MO % % 5.3 12.2 9.1 FINAL Marcelo Mahmoods B&Whole Blood [facility] ([facility]), [address], [address] [place] [address] 05/31 CBC w/ auto diff EO % % 0.8 7.0 2.9 FINAL Marcelo Mahmoods B&Whole Blood [facility] ([facility]), [address], [address] [place] [address] 05/31 CBC w/ auto diff BA % % 0.2 1.2 0.3 FINAL Marcelo Mahmoods B&Whole Blood [facility] ([facility]), [address], [address] [place] [address] 05/31 CBC w/ auto diff RBC 10*6/u L 4.63 6.08 5.01 FINAL Marcelo Mahmoods B&Whole Blood [facility] ([facility]), [address], [address] [place] [address] 05/31 CBC w/ auto diff HGB g/dL 13.7 17.5 16.4 FINAL Marcelo Mahmoods B&Whole Blood [facility] ([facility]), [address], [address] [place] [address] 05/31 CBC w/ auto diff HCT % 40.1 51.0 47.5 FINAL Marcelo Mahmoods B&Whole Blood [facility] ([facility]), [address], [address] [place] [address] 05/31 CBC w/ auto diff MCV fL 79.0 92.2 94.8 High FINAL Marcelo Mahmoods B&Whole Blood [facility] ([facility]), [address], [address] [place] [address] 05/31 CBC w/ auto diff MCH pg 25.7 32.2 32.7 High FINAL [facility] B&Whole Blood [facility] ([facility]), [address], [address] [place] [address] 05/31 CBC w/ auto diff MCHC g/dL 32.3 36.5 34.5 FINAL Marcelo Mahmoods B&Whole Blood [facility] ([facility]), [address], [address] [place] [address] 05/31 CBC w/ auto diff RDW-C V, % % 11.6 14.4 13.8 FINAL Marcelo Mahmoods B&Whole Blood [facility] ([facility]), [address], [address] [place] [address] 05/31 CBC w/ auto diff PLT 10*3/u L 163.0 337.0 161.0 Low FINAL Marcelo Mahmoods B&Whole Blood [facility] ([facility]), [address], [address] [place] [address] 06/21 CBC w/ auto diff WBC 10*3/u L 4.2 9.1 14.1 High FINAL Marcelo [facility] ([facility]), [address], [address] [place] [address] 06/21 CBC w/ auto diff Cristobal # (ANC) 10*3/u L 1.78 5.38 10.63 High FINAL Marcelo [facility] ([facility]), [address], [address] [place] [address] 06/21 CBC w/ auto diff LY # 10*3/u L 1.32 3.57 2.09 FINAL Marcelo [facility] ([facility]), [address], [address] [place] [address] 06/21 CBC w/ auto diff MO # 10*3/u L 0.3 0.82 1.34 High FINAL Marcelo [facility] ([facility]), [address], [address] [place] [address] 06/21 CBC w/ auto diff EO # 10*3/u lL 0.04 0.54 0.03 Low FINAL Marcelo [facility] ([facility]), [address], [address] [place] [address] 06/21 CBC w/ auto diff BA # 10*3/u L 0.01 0.08 0.02 FINAL Marcelo [facility] ([facility]), [address], [address] [place] [address] 06/21 CBC w/ auto diff Cristobal % % 34.0 67.9 75.4 High FINAL Marcelo [facility] ([facility]), [address], [address] [place] [address] 06/21 CBC w/ auto diff LY % % 21.8 53.1 14.8 Low FINAL Marcelo [facility] ([facility]), [address], [address] [place] [address] 06/21 CBC w/ auto diff MO % % 5.3 12.2 9.5 FINAL Marcelo [facility] ([facility]), [address], [address] [place] [address] 06/21 CBC w/ auto diff EO % % 0.8 7.0 0.2 Low FINAL [facility] ([facility]), [address], [address] [place] [address] 06/21 CBC w/ auto diff BA % % 0.2 1.2 0.1 Low FINAL [facility] ([facility]), [address], [address] [place] [address] 06/21 CBC w/ auto diff RBC 10*6/u L 4.63 6.08 4.90 FINAL [facility] ([facility]), [address], [address] [place] [address] 06/21 CBC w/ auto diff HGB g/dL 13.7 17.5 16.0 FINAL [facility] ([facility]), [address], [address] [place] [address] 06/21 CBC w/ auto diff HCT % 40.1 51.0 47.5 FINAL [facility] ([facility]), [address], [address] [place] [address] 06/21 CBC w/ auto diff MCV fL 79.0 92.2 96.9 High FINAL [facility] ([facility]), [address], [address] [place] [address] 06/21 CBC w/ auto diff MCH pg 25.7 32.2 32.7 High FINAL [facility] ([facility]), [address], [address] [place] [address] 06/21 CBC w/ auto diff MCHC g/dL 32.3 36.5 33.7 FINAL [facility] ([facility]), [address], [address] [place] [address] 06/21 CBC w/ auto diff RDW-C V, % % 11.6 14.4 14.0 FINAL [facility] ([facility]), [address], [address] [place] [address] 06/21 CBC w/ auto diff PLT 10*3/u L 163.0 337.0 185.0 FINAL Marcelo Olson [facility] Jennifer ([facility]), [address], [address] [facility] [address] 07/23 Lab Repor t See food service worker d Medications Date Name Route Dose [...] Oral orally 5000.0 mcg daily active 12/22 [place] 3-DHA-E PA-Fish Oil [...] Print Location: Unknown Date/Time Printed: 10/19/2025 17:03 ([facility]) Patient: VALERIE PUENTES Sex: Male : [...] Selected Billing Code(s): PHLEBOTOMY THERAPEUTIC SEPARATE PROCEDURE (66384) Entered By Barbara Casas RN; Incident to Marcelo Olson MD * Nurse Note for: 09-NOV-19 [facility] Nurse Note Print Location: Unknown Date/Time Printed: 10/19/2025 17:03 ([facility]) Patient: VALERIE PUENTES Sex: Male : [...] Selected Billing Code(s): PHLEBOTOMY THERAPEUTIC SEPARATE PROCEDURE (12352) Entered By Ju Gupta RN; Incident to Marcelo Olson MD * Nurse Note for: 20-JUL-19 [facility] Nurse Note Print Location: Unknown Date/Time Printed: 10/19/2025 17:03 ([facility]) Patient: VALERIE PUENTES Sex: Male : [...] Selected Billing Code(s): PHLEBOTOMY THERAPEUTIC SEPARATE PROCEDURE (73813) Entered By Barbara Garcia RN; Incident to Marcelo Olson MD
--- OUTSIDE RECORDS SUMMARY | 2025-10-19 17:03 | XMS_ITS ---
Author Name Interface, [id number] lity Address [address] [place] [address] Organization [facility] Address [address] [place] [address] Allergies and Adverse Reactions Medication/Group Name Reaction [...] 9.1 High FINAL Marcelo Olson B&Whole Blood [facility] ([facility]), [address], [address] [place] [address] 07/20 CBC w/ auto diff Cristobal # (ANC) 10*3/u L 1.78 5.38 4.47 FINAL Marcelo Olson B&Whole Blood [facility] ([facility]), [address], Suite [facility] [place] [facility] 07/20 CBC w/ auto diff LY # 10*3/u L 1.32 3.57 3.40 FINAL Marcelo Olson B&Whole Blood [facility] ([facility]), [address], [address] [place], [place] [id number] 07/20 CBC w/ auto diff MO # 10*3/u L 0.3 0.82 0.80 FINAL Marcelo Olson B&Whole Blood [facility] ([facility]), [address], [place] [facility] [place] [address] 07/20 CBC w/ auto diff EO # 10*3/u lL 0.04 0.54 0.38 FINAL Marcelo Olson B&Whole Blood [facility] ([facility]), [address], [place] [facility] [place] [address] 07/20 CBC w/ auto diff BA # 10*3/u L 0.01 0.08 0.03 FINAL Marcelo Funez&Whole Blood [facility] ([facility]), [address], [address] [place] [address] 07/20 CBC w/ auto diff Cristobal % % 34.0 67.9 49.3 FINAL Marcelo Herms B&Whole Blood [facility] ([facility]), [address], [address] [place] [address] 07/20 CBC w/ auto diff LY % % 21.8 53.1 37.4 FINAL Marcelo Herms B&Whole Blood [facility] ([facility]), [address], [address] [place] [address] 07/20 CBC w/ auto diff MO % % 5.3 12.2 8.8 FINAL Marcelo Herms B&Whole Blood [facility] ([facility]), [address], [address] [place] [address] 07/20 CBC w/ auto diff EO % % 0.8 7.0 4.2 FINAL Marcelo Herms B&Whole Blood [facility] ([facility]), [address], [address] [place] [address] 07/20 CBC w/ auto diff BA % % 0.2 1.2 0.3 FINAL Marcelo Herms B&Whole Blood [facility] ([facility]), [address], [address] [place] [address] 07/20 CBC w/ auto diff RBC 10*6/u L 4.63 6.08 5.60 FINAL Marcelo Herms B&Whole Blood [facility] ([facility]), [address], [address] [place] [address] 07/20 CBC w/ auto diff HGB g/dL 13.7 17.5 18.2 High FINAL Marcelo Herms B&Whole Blood [facility] ([facility]), [address], [address] [place] [address] 07/20 CBC w/ auto diff HCT % 40.1 51.0 52.8 High FINAL Marcelo Herms B&Whole Blood [facility] ([facility]), [address], [address] [place] [address] 07/20 CBC w/ auto diff MCV fL 79.0 92.2 94.3 High FINAL Marcelo Herms B&Whole Blood [facility] ([facility]), [address], [address] [place] [address] 07/20 CBC w/ auto diff MCH pg 25.7 32.2 32.5 High FINAL Marcelo Herms B&Whole Blood [facility] ([facility]), [address], [address] [place] [address] 07/20 CBC w/ auto diff MCHC g/dL 32.3 36.5 34.5 FINAL Marcelo Herms B&Whole Blood [facility] ([facility]), [address], [address] [place] [address] 07/20 CBC w/ auto diff RDW-C V, % % 11.6 14.4 12.5 FINAL Marcelo Herms B&Whole Blood [facility] ([facility]), [address], [address] [place] [address] 07/20 CBC w/ auto diff PLT 10*3/u L 163.0 337.0 160.0 Low FINAL Marcelo Herms B&Whole Blood [facility] ([facility]), [address], [address] [place] [address] 11/09 CBC w/ auto diff WBC 10*3/u [...] Blood 5 02/12 Lab Repor t See research pharmacist d 02/15 CBC w/ auto diff WBC 10*3/u L 4.2 9.1 8.8 FINAL Marcelo Olson B&Whole Blood [facility] ([facility]), [address], [address] [place] [address] 02/15 CBC w/ auto diff Cristobal # (ANC) 10*3/u L 1.78 5.38 4.12 FINAL Marcelo Mahmoods B&Whole Blood [facility] ([facility]), [address], [place] [facility] [place] [address] 02/15 CBC w/ auto diff LY # 10*3/u L 1.32 3.57 3.32 FINAL Marcelo Mahmoods B&Whole Blood [facility] ([facility]), [address], [place] [facility] [place] [address] 02/15 CBC w/ auto diff MO # 10*3/u L 0.3 0.82 0.96 High FINAL Marcelo Mahmoods B&Whole Blood [facility] ([facility]), [address], [place] [facility] [place] [address] 02/15 CBC w/ auto diff EO # 10*3/u lL 0.04 0.54 0.36 FINAL Marcelo Mahmoods B&Whole Blood [facility] ([facility]), [address], [place] [facility] [place] [address] 02/15 CBC w/ auto diff BA # 10*3/u L 0.01 0.08 0.04 FINAL Marcelo Mahmoods B&Whole Blood [facility] ([facility]), [address], [place] [place] [address] 02/15 CBC w/ auto diff Cristobal % % 34.0 67.9 46.8 FINAL Marcelo Mahmoods B&Whole Blood [facility] ([facility]), [address], [address] [facility] [place] [facility] 02/15 CBC w/ auto diff LY % % 21.8 53.1 37.7 FINAL Marcelo Mahmoods B&Whole Blood [facility] ([facility]), [address], [place] [facility] [place] [address] 02/15 CBC w/ auto diff MO % % 5.3 12.2 10.9 FINAL Marcelo Mahmoods B&Whole Blood [facility] ([facility]), [address], [place] [place] [address] 02/15 CBC w/ auto diff EO % % 0.8 7.0 4.1 FINAL Marcelo Mahmoods B&Whole Blood [facility] ([facility]), [address], [place] [facility] [place] [address] 02/15 CBC w/ auto diff BA % % 0.2 1.2 0.5 FINAL Marcelo Mahmoods B&Whole Blood [facility] ([facility]), [address], [place] [facility] [place] [address] 02/15 CBC w/ auto diff RBC 10*6/u L 4.63 6.08 5.33 FINAL Marcelo Olson B&Whole Blood [facility] ([facility]), [address], [address] [facility] [place] [facility] 02/15 CBC w/ auto diff HGB g/dL 13.7 17.5 17.4 FINAL Marcelo Olson B&Whole Blood [facility] ([facility]), [address], [address] [facility] [place] [facility] 02/15 CBC w/ auto diff HCT % 40.1 51.0 50.4 FINAL Marcelo Olson B&Whole Blood [facility] ([facility]), [address], [address] [place] [address] 02/15 CBC w/ auto diff MCV fL 79.0 92.2 94.6 High FINAL Marcelo Mahmoods B&Whole Blood [facility] ([facility]), [address], [address] [place] [address] 02/15 CBC w/ auto diff MCH pg 25.7 32.2 32.6 High FINAL Marcelo Olson B&Whole Blood [facility] ([facility]), [address], [address] [place] [address] 02/15 CBC w/ auto diff MCHC g/dL 32.3 36.5 34.5 FINAL Marcelo Olson B&Whole Blood [facility] ([facility]), [address], [address] [place] [address] 02/15 CBC w/ auto diff RDW-C V, % % 11.6 14.4 14.0 FINAL Marcelo Olson B&Whole Blood [facility] ([facility]), [address], [address] [facility] [place] [facility] 02/15 CBC w/ auto diff PLT 10*3/u L 163.0 337.0 172.0 FINAL Marcelo Mahmoods B&Whole Blood [facility] ([facility]), [address], [place] [facility] [place] [address] 05/31 CBC w/ auto diff WBC 10*3/u L 4.2 9.1 10.4 High FINAL Marcelo Mahmoods B&Whole Blood [facility] ([facility]), [address], [address] [facility] [place] [facility] 05/31 CBC w/ auto diff Cristobal # (ANC) 10*3/u L 1.78 5.38 5.26 FINAL Marcelo Olson B&Whole Blood [facility] ([facility]), [address], [address] [place] [address] 05/31 CBC w/ auto diff LY # 10*3/u L 1.32 3.57 3.84 High FINAL Marcelo Olson B&Whole Blood [facility] ([facility]), [address], [address] [place] [address] 05/31 CBC w/ auto diff MO # 10*3/u L 0.3 0.82 0.94 High FINAL Marcelo Olson B&Whole Blood [facility] ([facility]), [address], [address] [place] [address] 05/31 CBC w/ auto diff EO # 10*3/u lL 0.04 0.54 0.30 FINAL Marcelo Olson B&Whole Blood [facility] ([facility]), [address], [address] [place] [address] 05/31 CBC w/ auto diff BA # 10*3/u L 0.01 0.08 0.03 FINAL Marcelo Olson B&Whole Blood [facility] ([facility]), [address], [address] [place] [address] 05/31 CBC w/ auto diff Cristobal % % 34.0 67.9 50.7 FINAL Marcelo Olson B&Whole Blood [facility] ([facility]), [address], [address] [place] [address] 05/31 CBC w/ auto diff LY % % 21.8 53.1 37.0 FINAL Marcelo Olson B&Whole Blood [facility] ([facility]), [address], [address] [place] [address] 05/31 CBC w/ auto diff MO % % 5.3 12.2 9.1 FINAL Marcelo Mahmoods B&Whole Blood [facility] ([facility]), [address], [address] [place] [address] 05/31 CBC w/ auto diff EO % % 0.8 7.0 2.9 FINAL Marcelo Mahmoods B&Whole Blood [facility] ([facility]), [address], [address] [place] [address] 05/31 CBC w/ auto diff BA % % 0.2 1.2 0.3 FINAL Marcelo Mahmoods B&Whole Blood [facility] ([facility]), [address], [address] [place] [address] 05/31 CBC w/ auto diff RBC 10*6/u L 4.63 6.08 5.01 FINAL Marcelo Mahmoods B&Whole Blood [facility] ([facility]), [address], [address] [place] [address] 05/31 CBC w/ auto diff HGB g/dL 13.7 17.5 16.4 FINAL Marcelo Mahmoods B&Whole Blood [facility] ([facility]), [address], [address] [place] [address] 05/31 CBC w/ auto diff HCT % 40.1 51.0 47.5 FINAL Marcelo Mahmoods B&Whole Blood [facility] ([facility]), [address], [address] [place] [address] 05/31 CBC w/ auto diff MCV fL 79.0 92.2 94.8 High FINAL Marcelo Mahmoods B&Whole Blood [facility] ([facility]), [address], [address] [place] [address] 05/31 CBC w/ auto diff MCH pg 25.7 32.2 32.7 High FINAL [facility] B&Whole Blood [facility] ([facility]), [address], [address] [place] [address] 05/31 CBC w/ auto diff MCHC g/dL 32.3 36.5 34.5 FINAL Marcelo Mahmoods B&Whole Blood [facility] ([facility]), [address], [address] [place] [address] 05/31 CBC w/ auto diff RDW-C V, % % 11.6 14.4 13.8 FINAL Marcelo Mahmoods B&Whole Blood [facility] ([facility]), [address], [address] [place] [address] 05/31 CBC w/ auto diff PLT 10*3/u L 163.0 337.0 161.0 Low FINAL Marcelo Mahmoods B&Whole Blood [facility] ([facility]), [address], [address] [place] [address] 06/21 CBC w/ auto diff WBC 10*3/u L 4.2 9.1 14.1 High FINAL Marcelo [facility] ([facility]), [address], [address] [place] [address] 06/21 CBC w/ auto diff Cristobal # (ANC) 10*3/u L 1.78 5.38 10.63 High FINAL Marcelo [facility] ([facility]), [address], [address] [place] [address] 06/21 CBC w/ auto diff LY # 10*3/u L 1.32 3.57 2.09 FINAL Marcelo [facility] ([facility]), [address], [address] [place] [address] 06/21 CBC w/ auto diff MO # 10*3/u L 0.3 0.82 1.34 High FINAL Marcelo [facility] ([facility]), [address], [address] [place] [address] 06/21 CBC w/ auto diff EO # 10*3/u lL 0.04 0.54 0.03 Low FINAL Marcelo [facility] ([facility]), [address], [address] [place] [address] 06/21 CBC w/ auto diff BA # 10*3/u L 0.01 0.08 0.02 FINAL Marcelo [facility] ([facility]), [address], [address] [place] [address] 06/21 CBC w/ auto diff Cristobal % % 34.0 67.9 75.4 High FINAL Marcelo [facility] ([facility]), [address], [address] [place] [address] 06/21 CBC w/ auto diff LY % % 21.8 53.1 14.8 Low FINAL Marcelo [facility] ([facility]), [address], [address] [place] [address] 06/21 CBC w/ auto diff MO % % 5.3 12.2 9.5 FINAL Marcelo [facility] ([facility]), [address], [address] [place] [address] 06/21 CBC w/ auto diff EO % % 0.8 7.0 0.2 Low FINAL [facility] ([facility]), [address], [address] [place] [address] 06/21 CBC w/ auto diff BA % % 0.2 1.2 0.1 Low FINAL [facility] ([facility]), [address], [address] [place] [address] 06/21 CBC w/ auto diff RBC 10*6/u L 4.63 6.08 4.90 FINAL [facility] ([facility]), [address], [address] [place] [address] 06/21 CBC w/ auto diff HGB g/dL 13.7 17.5 16.0 FINAL [facility] ([facility]), [address], [address] [place] [address] 06/21 CBC w/ auto diff HCT % 40.1 51.0 47.5 FINAL [facility] ([facility]), [address], [address] [place] [address] 06/21 CBC w/ auto diff MCV fL 79.0 92.2 96.9 High FINAL [facility] ([facility]), [address], [address] [place] [address] 06/21 CBC w/ auto diff MCH pg 25.7 32.2 32.7 High FINAL [facility] ([facility]), [address], [address] [place] [address] 06/21 CBC w/ auto diff MCHC g/dL 32.3 36.5 33.7 FINAL [facility] ([facility]), [address], [address] [place] [address] 06/21 CBC w/ auto diff RDW-C V, % % 11.6 14.4 14.0 FINAL [facility] ([facility]), [address], [address] [place] [address] 06/21 CBC w/ auto diff PLT 10*3/u L 163.0 337.0 185.0 FINAL Marcelo Olson [facility] Jennifer ([facility]), [address], [address] [facility] [address] 07/23 Lab Repor t See research pharmacist d Medications Date Name Route Dose Frequency Instructions Start Date End Date Status Fill Status Indication 12/22 Sitagli ptin-Me tformin Oral 50 mg-1,00 0 mg orally 1.0 2 times per day active 12/22 Aspirin Oral orally 81.0 mg daily active 12/22 Insulin Detemir Subcuta neous 100 unit/mL subcutan eously 36.0 every evening active 12/22 Cyanoco balamin Oral orally 5000.0 mcg daily active 12/22 [place] 3-DHA-E PA-Fish Oil Oral Liquid 1,600 mg-500 [...] Print Location: Unknown Date/Time Printed: 10/19/2025 17:02 ([facility]) Patient: VALERIE PUENTES Sex: Male [...] Selected Billing Code(s): PHLEBOTOMY THERAPEUTIC SEPARATE PROCEDURE (46086) Entered By Barbara Casas RN; Incident to Marcelo Olson MD * Nurse Note for: 09-NOV-19 [facility] Nurse Note Print Location: Unknown Date/Time Printed: 10/19/2025 17:02 ([facility]) Patient: VALERIE PUENTES Sex: Male [...] Selected Billing Code(s): PHLEBOTOMY THERAPEUTIC SEPARATE PROCEDURE (43197) Entered By Ju Gupta RN; Incident to Marcelo Olson MD * Nurse Note for: 20-JUL-19 [facility] Nurse Note Print Location: Unknown Date/Time Printed: 10/19/2025 17:02 ([facility]) Patient: VALERIE PUENTES Sex: Male [...] Selected Billing Code(s): PHLEBOTOMY THERAPEUTIC SEPARATE PROCEDURE (91355) Entered By Barbara Garcia RN; Incident to Marcelo Olson MD
--- OUTSIDE RECORDS SUMMARY | 2025-10-19 17:03 | XMS_ITS ---
Author Name Interface, [id number] lity Address [address] [place] [address] Organization [facility] Address [address] [place] [address] Allergies and Adverse Reactions Medication/Group Name Reaction [...] FINAL Marcelo Olson B&Whole Blood [facility] ([facility]), [address], [address] [place] [address] 02/15 CBC w/ auto diff Cristobal # (ANC) 10*3/u L 1.78 5.38 4.12 FINAL Marcelo Olson B&Whole Blood [facility] ([facility]), [address], [address] [place] [address] 02/15 CBC w/ auto diff LY # 10*3/u L 1.32 3.57 3.32 FINAL Marcelo Olson B&Whole Blood [facility] ([facility]), [address], [address] [place] [address] 02/15 CBC w/ auto diff MO # 10*3/u L 0.3 0.82 0.96 High FINAL Marcelo Olson B&Whole Blood [facility] ([facility]), [address], [address] [place] [address] 02/15 CBC w/ auto diff EO # 10*3/u lL 0.04 0.54 0.36 FINAL Marcelo Olson B&Whole Blood [facility] ([facility]), [address], [address] [place] [address] 02/15 CBC w/ auto diff BA # 10*3/u L 0.01 0.08 0.04 FINAL Marcelo Olson B&Whole Blood [facility] ([facility]), [address], [address] [place] [address] 02/15 CBC w/ auto diff Cristobal % % 34.0 67.9 46.8 FINAL Marcelo Olson B&Whole Blood [facility] ([facility]), [address], [address] [place] [address] 02/15 CBC w/ auto diff LY % % 21.8 53.1 37.7 FINAL Marcelo Olson B&Whole Blood [facility] (T), [address], Suite [facility] [place] [address] 02/15 CBC w/ auto diff MO % % 5.3 12.2 10.9 FINAL Marcelo Olson B&Whole Blood [facility] (T), [address], Suite [facility] [place] [facility] 02/15 CBC w/ auto diff EO % % 0.8 7.0 4.1 FINAL Marcelo Olson B&Whole Blood [facility] (T), [address], [address] [facility] [place] [facility] 02/15 CBC w/ auto diff BA % % 0.2 1.2 0.5 FINAL Marcelo Olson B&Whole Blood [facility] ([facility]), [address], [address] [facility] [place] [facility] 02/15 CBC w/ auto diff RBC 10*6/u L 4.63 6.08 5.33 FINAL Marcelo Olson B&Whole Blood [facility] ([facility]), [address], [address] [facility] [place] [facility] 02/15 CBC w/ auto diff HGB g/dL 13.7 17.5 17.4 FINAL Marcelo Olson B&Whole Blood [facility] (T), [address], [address] [place] [address] 02/15 CBC w/ auto diff HCT % 40.1 51.0 50.4 FINAL Marcelo Olson B&Whole Blood [facility] (T), [address], [address] [facility] [place] [facility] 02/15 CBC w/ auto diff MCV fL 79.0 92.2 94.6 High FINAL Marcelo Olson B&Whole Blood [facility] ([facility]), [address], [address] [facility] [place] [facility] 02/15 CBC w/ auto diff MCH pg 25.7 32.2 32.6 High FINAL Marcelo Olson B&Whole Blood [facility] (T), [address], [address] [facility] [place] [facility] 02/15 CBC w/ auto diff MCHC g/dL 32.3 36.5 34.5 FINAL Marcelo Mahmoods B&Whole Blood [facility] (T), [address], Suite [facility] [place] [address] 02/15 CBC w/ auto diff RDW-C V, % % 11.6 14.4 14.0 FINAL Marcelo Mahmoods B&Whole Blood [facility] (T), [address], [address] [place] [address] 02/15 CBC w/ auto diff PLT 10*3/u L 163.0 337.0 172.0 FINAL Marcelo Mahmoods B&Whole Blood [facility] (T), [address], [address] [place] [address] 05/31 CBC w/ auto diff WBC 10*3/u L 4.2 9.1 10.4 High FINAL Marcelo Herms B&Whole Blood [facility] (T), [address], [address] [place] [address] 05/31 CBC w/ auto diff Cristobal # (ANC) 10*3/u L 1.78 5.38 5.26 FINAL Marcelo Mahmoods B&Whole Blood [facility] (T), [address], [address] [place] [address] 05/31 CBC w/ auto diff LY # 10*3/u L 1.32 3.57 3.84 High FINAL Marcelo Mahmoods B&Whole Blood [facility] (T), [address], [address] [place] [address] 05/31 CBC w/ auto diff MO # 10*3/u L 0.3 0.82 0.94 High FINAL Marcelo Herms B&Whole Blood [facility] (T), [address], [address] [place] [address] 05/31 CBC w/ auto diff EO # 10*3/u lL 0.04 0.54 0.30 FINAL Marcelo Herms B&Whole Blood [facility] (T), [address], [address] [place] [address] 05/31 CBC w/ auto diff BA # 10*3/u L 0.01 0.08 0.03 FINAL Marcelo Herms B&Whole Blood [facility] (T), [address], [address] [place] [address] 05/31 CBC w/ auto diff Cristobal % % 34.0 67.9 50.7 FINAL Marcelo Herms B&Whole Blood [facility] ([facility]), [address], Suite [facility] [place] [address] 05/31 CBC w/ auto diff LY % % 21.8 53.1 37.0 FINAL Marcelo Olson B&Whole Blood [facility] ([facility]), [address], [address] [facility] [place] [facility] 05/31 CBC w/ auto diff MO % % 5.3 12.2 9.1 FINAL Marcelo Olson B&Whole Blood [facility] ([facility]), [address], [address] [facility] [place] [facility] 05/31 CBC w/ auto diff EO % % 0.8 7.0 2.9 FINAL Marcelo Olson B&Whole Blood [facility] ([facility]), [address], [address] [place] [address] 05/31 CBC w/ auto diff BA % % 0.2 1.2 0.3 FINAL Marcelo Olson B&Whole Blood [facility] (T), [address], [address] [place] [address] 05/31 CBC w/ auto diff RBC 10*6/u L 4.63 6.08 5.01 FINAL Marcelo Olson B&Whole Blood [facility] (T), [address], [address] [place] [address] 05/31 CBC w/ auto diff HGB g/dL 13.7 17.5 16.4 FINAL Marcelo Olson B&Whole Blood [facility] ([facility]), [address], [address] [place] [address] 05/31 CBC w/ auto diff HCT % 40.1 51.0 47.5 FINAL Marcelo Olson B&Whole Blood [facility] ([facility]), [address], [address] [place] [address] 05/31 CBC w/ auto diff MCV fL 79.0 92.2 94.8 High FINAL Marcelo Mahmoods B&Whole Blood [facility] ([facility]), [address], [address] [place] [address] 05/31 CBC w/ auto diff MCH pg 25.7 32.2 32.7 High FINAL Marcelo Mahmoods B&Whole Blood [facility] ([facility]), [address], [address] [place] [address] 05/31 CBC w/ auto diff MCHC g/dL 32.3 36.5 34.5 FINAL [facility] B&Whole Blood [facility] (T), [address], [address] [place] [address] 05/31 CBC w/ auto diff RDW-C V, % % 11.6 14.4 13.8 FINAL [facility] B&Whole Blood [facility] (T), [address], [address] [place] [address] 05/31 CBC w/ auto diff PLT 10*3/u L 163.0 337.0 161.0 Low FINAL [facility] B&Whole Blood [facility] ([facility]), [address], [address] [place] [address] 06/21 CBC w/ auto diff WBC 10*3/u L 4.2 9.1 14.1 High FINAL [facility] ([facility]), [address], [address] [place] [address] 06/21 CBC w/ auto diff Cristobal # (ANC) 10*3/u L 1.78 5.38 10.63 High FINAL [facility] ([facility]), [address], [address] [place] [address] 06/21 CBC w/ auto diff LY # 10*3/u L 1.32 3.57 2.09 FINAL [facility] ([facility]), [address], [address] [place] [address] 06/21 CBC w/ auto diff MO # 10*3/u L 0.3 0.82 1.34 High FINAL [facility] ([facility]), [address], [address] [place] [address] 06/21 CBC w/ auto diff EO # 10*3/u lL 0.04 0.54 0.03 Low FINAL [facility] ([facility]), [address], [address] [place] [address] 06/21 CBC w/ auto diff BA # 10*3/u L 0.01 0.08 0.02 FINAL [facility] ([facility]), [address], [address] [place] [address] 06/21 CBC w/ auto diff Cristobal % % 34.0 67.9 75.4 High FINAL [facility] ([facility]), [address], [address] [place] [address] 06/21 CBC w/ auto diff LY % % 21.8 53.1 14.8 Low FINAL [facility] ([facility]), [address], [address] [place] [address] 06/21 CBC w/ auto diff MO % % 5.3 12.2 9.5 FINAL [facility] ([facility]), [address], [address] [place] [address] 06/21 CBC w/ auto diff EO % % 0.8 7.0 0.2 Low FINAL [facility] ([facility]), [address], [address] [place] [address] 06/21 CBC w/ auto diff BA % % 0.2 1.2 0.1 Low FINAL [facility] ([facility]), [address], [address] [place] [address] 06/21 CBC w/ auto diff RBC 10*6/u L 4.63 6.08 4.90 FINAL [facility] ([facility]), [address], [address] [place] [address] 06/21 CBC w/ auto diff HGB g/dL 13.7 17.5 16.0 FINAL [facility] ([facility]), [address], [address] [place] [address] 06/21 CBC w/ auto diff HCT % 40.1 51.0 47.5 FINAL [facility] ([facility]), [address], [address] [place] [address] 06/21 CBC w/ auto diff MCV fL 79.0 92.2 96.9 High FINAL [facility] ([facility]), [address], [address] [place] [address] 06/21 CBC w/ auto diff MCH pg 25.7 32.2 32.7 High FINAL [facility] ([facility]), [address], [address] [facility] [address] 06/21 CBC w/ auto diff MCHC g/dL 32.3 36.5 33.7 FINAL [facility] ([facility]), [address], [address] [facility] [address] 06/21 CBC w/ auto diff RDW-C V, % % 11.6 14.4 14.0 FINAL [facility] ([facility]), [address], [address] [facility] [address] 06/21 CBC w/ auto diff PLT 10*3/u L 163.0 337.0 185.0 FINAL [facility] ([facility]), [address], [address] [facility] [address] 07/23 Lab Repor t See mandrel maker d Medications Date Name Route Dose Frequency Instructions Start Date End Date Status Fill Status Indication 12/22 Sitagli ptin-Me tformin Oral 50 mg-1,00 0 mg orally 1.0 2 times per day active 12/22 Aspirin Oral orally 81.0 mg daily active 12/22 Insulin Detemir Subcuta neous 100 unit/mL subcutan eously 36.0 every evening active 12/22 Cyanoco balamin Oral orally 5000.0 mcg daily active 12/22 Loving 3-DHA-E PA-Fish Oil Oral Liquid 1,600 mg-500 [...] Print Location: Unknown Date/Time Printed: 10/19/2025 17:03 (Lauren/[facility]) Patient: VALERIE PUENTES Sex: Male [...] Changes , Bleeding . Entered By Barbara Caass RN on 15:31 IV Access/Lab Draw : [...] Selected Billing Code(s): PHLEBOTOMY THERAPEUTIC SEPARATE PROCEDURE (58177) Entered By Barbara Casas RN; Incident to Marcelo Olson MD
--- OUTSIDE RECORDS SUMMARY | 2025-10-19 17:03 | XMS_ITS ---
Author Name Interface, [id number] lity Address [address] [place] [address] Organization [facility] Address [address] [place] [address] Allergies and Adverse Reactions Medication/Group Name Reaction [...] B&Whole Blood [facility] ([facility]), [address], [address] [place] [address] 02/15 CBC w/ auto diff Cristobal # (ANC) 10*3/u L 1.78 5.38 4.12 FINAL Marcelo Olson B&Whole Blood [facility] ([facility]), [address], [address] [place] [address] 02/15 CBC w/ auto diff LY # 10*3/u L 1.32 3.57 3.32 FINAL Marcelo Olson B&Whole Blood [facility] ([facility]), [address], [address] [place] [address] 02/15 CBC w/ auto diff MO # 10*3/u L 0.3 0.82 0.96 High FINAL Marcelo Olson B&Whole Blood [facility] ([facility]), [address], [address] [place] [address] 02/15 CBC w/ auto diff EO # 10*3/u lL 0.04 0.54 0.36 FINAL Macrelo Olson B&Whole Blood [facility] ([facility]), [address], [address] [place] [address] 02/15 CBC w/ auto diff BA # 10*3/u L 0.01 0.08 0.04 FINAL Marcelo Olson B&Whole Blood [facility] ([facility]), [address], [address] [place] [address] 02/15 CBC w/ auto diff Cristobal % % 34.0 67.9 46.8 FINAL Marcelo Olson B&Whole Blood [facility] ([facility]), [address], [address] [place] [address] 02/15 CBC w/ auto diff LY % % 21.8 53.1 37.7 FINAL Marcelo Mahmoods B&Whole Blood [facility] ([facility]), [address], [address] [facility] [place] [address] 02/15 CBC w/ auto diff MO % % 5.3 12.2 10.9 FINAL Marcelo Mahmoods B&Whole Blood [facility] ([facility]), [address], [address] [facility] [place] [address] 02/15 CBC w/ auto diff EO % % 0.8 7.0 4.1 FINAL Marcelo Olson B&Whole Blood [facility] ([facility]), [address], [address] [facility] [place] [facility] 02/15 CBC w/ auto diff BA % % 0.2 1.2 0.5 FINAL Marcelo Mahmoods B&Whole Blood [facility] (T), [address], [address] [facility] [place] [facility] 02/15 CBC w/ auto diff RBC 10*6/u L 4.63 6.08 5.33 FINAL Marcelo Mahmoods B&Whole Blood [facility] (T), [address], [address] [facility] [place] [facility] 02/15 CBC w/ auto diff HGB g/dL 13.7 17.5 17.4 FINAL Marcelo Olson B&Whole Blood [facility] (T), [address], [address] [facility] [place] [facility] 02/15 CBC w/ auto diff HCT % 40.1 51.0 50.4 FINAL Marcelo Mahmoods B&Whole Blood [facility] (T), [address], [address] [facility] [place] [facility] 02/15 CBC w/ auto diff MCV fL 79.0 92.2 94.6 High FINAL Marcelo Mahmoods B&Whole Blood [facility] ([facility]), [address], [address] [facility] [place] [address] 02/15 CBC w/ auto diff MCH pg 25.7 32.2 32.6 High FINAL Marcelo Mahmoods B&Whole Blood [facility] ([facility]), [address], [address] [facility] [place] [address] 02/15 CBC w/ auto diff MCHC g/dL 32.3 36.5 34.5 FINAL Mracelo Mahmoods B&Whole Blood [facility] ([facility]), [address], [address] [place] [address] 02/15 CBC w/ auto diff RDW-C V, % % 11.6 14.4 14.0 FINAL Marcelo Mahmoods B&Whole Blood [facility] (T), [address], [address] [place] [address] 02/15 CBC w/ auto diff PLT 10*3/u L 163.0 337.0 172.0 FINAL Marcelo Mahmoods B&Whole Blood [facility] ([facility]), [address], [address] [place] [address] 05/31 CBC w/ auto diff WBC 10*3/u L 4.2 9.1 10.4 High FINAL Marcelo Mahmoods B&Whole Blood [facility] ([facility]), [address], [address] [place] [address] 05/31 CBC w/ auto diff Cristobal # (ANC) 10*3/u L 1.78 5.38 5.26 FINAL Marcelo Mahmoods B&Whole Blood [facility] ([facility]), [address], [address] [place] [address] 05/31 CBC w/ auto diff LY # 10*3/u L 1.32 3.57 3.84 High FINAL Marcelo Mahmoods B&Whole Blood [facility] ([facility]), [address], [address] [place] [address] 05/31 CBC w/ auto diff MO # 10*3/u L 0.3 0.82 0.94 High FINAL Marcelo Mahmoods B&Whole Blood [facility] ([facility]), [address], [address] [place] [address] 05/31 CBC w/ auto diff EO # 10*3/u lL 0.04 0.54 0.30 FINAL Marcelo Mahmoods B&Whole Blood [facility] ([facility]), [address], [address] [place] [address] 05/31 CBC w/ auto diff BA # 10*3/u L 0.01 0.08 0.03 FINAL Marcelo Herms B&Whole Blood [facility] ([facility]), [address], [address] [place] [address] 05/31 CBC w/ auto diff Cristobal % % 34.0 67.9 50.7 FINAL Marcelo Herms B&Whole Blood [facility] (T), [address], [address] [facility] [place] [facility] 05/31 CBC w/ auto diff LY % % 21.8 53.1 37.0 FINAL Marcelo Olson B&Whole Blood [facility] (T), [address], [address] [place] [address] 05/31 CBC w/ auto diff MO % % 5.3 12.2 9.1 FINAL Marcelo Olson B&Whole Blood [facility] (T), [address], [address] [place] [address] 05/31 CBC w/ auto diff EO % % 0.8 7.0 2.9 FINAL Marcelo Olson B&Whole Blood [facility] (T), [address], [address] [place] [address] 05/31 CBC w/ auto diff BA % % 0.2 1.2 0.3 FINAL Marcelo Olson B&Whole Blood [facility] (T), [address], [address] [place] [address] 05/31 CBC w/ auto diff RBC 10*6/u L 4.63 6.08 5.01 FINAL Marcelo Olson B&Whole Blood [facility] (T), [address], [address] [place] [address] 05/31 CBC w/ auto diff HGB g/dL 13.7 17.5 16.4 FINAL Marcelo Olson B&Whole Blood [facility] (T), [address], [address] [place] [address] 05/31 CBC w/ auto diff HCT % 40.1 51.0 47.5 FINAL Marcelo Olson B&Whole Blood [facility] (T), [address], [address] [place] [address] 05/31 CBC w/ auto diff MCV fL 79.0 92.2 94.8 High FINAL Marcelo Olson B&Whole Blood [facility] (T), [address], [address] [place] [address] 05/31 CBC w/ auto diff MCH pg 25.7 32.2 32.7 High FINAL Marcelo Olson B&Whole Blood [facility] (T), [address], [address] [place] [address] 05/31 CBC w/ auto diff MCHC g/dL 32.3 36.5 34.5 FINAL Marcelo [facility] B&Whole Blood [facility] ([facility]), [address], [address] [place] [address] 05/31 CBC w/ auto diff RDW-C V, % % 11.6 14.4 13.8 FINAL Marcelo [facility] B&Whole Blood [facility] ([facility]), [address], [address] [place] [address] 05/31 CBC w/ auto diff PLT 10*3/u L 163.0 337.0 161.0 Low FINAL [facility] B&Whole Blood [facility] ([facility]), [address], [address] [place] [address] 06/21 CBC w/ auto diff WBC 10*3/u L 4.2 9.1 14.1 High FINAL [facility] (T), [address], [address] [place] [address] 06/21 CBC w/ auto diff Cristobal # (ANC) 10*3/u L 1.78 5.38 10.63 High FINAL [facility] (T), [address], [address] [place] [address] 06/21 CBC w/ auto diff LY # 10*3/u L 1.32 3.57 2.09 FINAL [facility] (T), [address], [address] [place], [place] [id number] 06/21 CBC w/ auto diff MO # 10*3/u L 0.3 0.82 1.34 High FINAL [facility] ([facility]), [address], [address] [place], [place] [id number] 06/21 CBC w/ auto diff EO # 10*3/u lL 0.04 0.54 0.03 Low FINAL [facility] ([facility]), [address], [address] [facility] [address] 06/21 CBC w/ auto diff BA # 10*3/u L 0.01 0.08 0.02 FINAL [facility] ([facility]), [address], [address] [place] [address] 06/21 CBC w/ auto diff Cristobal % % 34.0 67.9 75.4 High FINAL Marcelo [facility] ([facility]), [address], [address] [place] [address] 06/21 CBC w/ auto diff LY % % 21.8 53.1 14.8 Low FINAL Marcelo [facility] ([facility]), [address], [address] [place] [address] 06/21 CBC w/ auto diff MO % % 5.3 12.2 9.5 FINAL Marcelo [facility] ([facility]), [address], [address] [place] [address] 06/21 CBC w/ auto diff EO % % 0.8 7.0 0.2 Low FINAL Marcelo [facility] ([facility]), [address], [address] [place] [address] 06/21 CBC w/ auto diff BA % % 0.2 1.2 0.1 Low FINAL Marcelo [facility] ([facility]), [address], [address] [place] [address] 06/21 CBC w/ auto diff RBC 10*6/u L 4.63 6.08 4.90 FINAL Marcelo [facility] ([facility]), [address], [address] [place] [address] 06/21 CBC w/ auto diff HGB g/dL 13.7 17.5 16.0 FINAL Marcelo [facility] ([facility]), [address], [address] [place] [address] 06/21 CBC w/ auto diff HCT % 40.1 51.0 47.5 FINAL Marcelo [facility] ([facility]), [address], [address] [place] [address] 06/21 CBC w/ auto diff MCV fL 79.0 92.2 96.9 High FINAL Marcelo [facility] ([facility]), [address], [address] [place] [address] 06/21 CBC w/ auto diff MCH pg 25.7 32.2 32.7 High FINAL [facility] ([facility]), [address], [address] [facility] [address] 06/21 CBC w/ auto diff MCHC g/dL 32.3 36.5 33.7 FINAL [facility] (T), [address], [address] [facility] [address] 06/21 CBC w/ auto diff RDW-C V, % % 11.6 14.4 14.0 FINAL [facility] (T), [address], [address] [facility] [address] 06/21 CBC w/ auto diff PLT 10*3/u L 163.0 337.0 185.0 FINAL [facility] ([facility]), [address], [address] [facility] [address] 07/23 Lab Repor t See staffing account manager d Medications Date Name Route Dose [...] Oral orally 5000.0 mcg daily active 12/22 Oliver 3-DHA-E PA-Fish Oil Oral Liquid 1,600 mg-500 [...] Print Location: Unknown Date/Time Printed: 10/19/2025 17:03 (Lauren/[facility]) Patient: VALERIE PUENTES Sex: Male : 1960 [...] Selected Billing Code(s): PHLEBOTOMY THERAPEUTIC SEPARATE PROCEDURE (63147) Entered By Barbara Casas RN; Incident to Marcelo Olson MD
--- OUTSIDE RECORDS SUMMARY | 2025-10-19 17:03 | XMS_ITS | Clinical Summary ---
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 Name Role Phone Unavailable Primary Care Provider Unavailabl e Social History Tobacco Use Types Packs/Day Years Used Date Smoking Tobacco: Never Assessed Sex and Gender Information Value Date Recorded Sex Assigned at Not on file Legal Sex Male 2:52 AM EDT Gender Identity Not on file Sexual Orientation Not on file Plan of Treatment Health Maintenance Due Date Last Done Comments CT Colonography 1958 Colonoscopy 1958 Colorectal Cancer Screening 1958 FIT-DNA (Cologuard) 1958 FIT 1958 FOBT 1958 Hepatitis C Screening 1958 Lipid Panel 1958 Sigmoidoscopy 1958 Hepatitis B Screening 1976 DTaP/Tdap/Td Vaccines (1 - Tdap) 1977 Pneumococcal Vaccine: 50+ Ye ars (1 of 1 - PCV) 2008 Zoster Vaccines (1 of 2) 2008 Depression Risk Screening 11/30/2024 Fall Risk Screening 11/30/2024 SDOH Screening 11/30/2024 COVID-19 Vaccine (1 - 2024-2 6 season) 2025 Influenza Vaccine (#1) 2025 HIB Vaccines Aged Out No longer eligi ble based on patient's age to complete this topic HPV Vaccines Aged Out No longer eligi ble based on patient's age to complete this topic Hepatitis A Vaccines Aged Out No long er eligible based on patient's age to complete this topic Hepatitis B Vaccines Aged Out No long er eligible based on patient's age to complete this topic IPV Vaccines Aged Out No longer eligi ble based on patient's age to complete this topic Meningococcal B Vaccine Aged Out No l onger eligible based on patient's age to complete this topic Meningococcal Vaccine Aged Out No marilu álvaro eligible based on patient's age to complete this topic Rotavirus Vaccines Aged Out No longer eligible based on patient's age to complete this topic Insurance [facility]
--- OUTSIDE RECORDS SUMMARY | 2025-10-19 17:04 | XMS_ITS ---
Author Name Interface, [id number] lity Address [address] [place] [address] Organization [facility] Address [address] [place] [address] Allergies and Adverse Reactions Medication/Group Name Reaction [...] L 4.2 9.1 14.1 High FINAL Marcelo [facility] ([facility]), [address], [address] [facility] [address] 06/21 CBC w/ auto diff Cristobal # (ANC) 10*3/u L 1.78 5.38 10.63 High FINAL Marcelo [facility] ([facility]), [address], [address] [facility] [address] 06/21 CBC w/ auto diff LY # 10*3/u L 1.32 3.57 2.09 FINAL [facility] ([facility]), [address], [address] [facility] [address] 06/21 CBC w/ auto diff MO # 10*3/u L 0.3 0.82 1.34 High FINAL Marcelo [facility] ([facility]), [address], [address] [place] [address] 06/21 CBC w/ auto diff EO # 10*3/u lL 0.04 0.54 0.03 Low FINAL Marcelo [facility] ([facility]), [address], [address] [place] [address] 06/21 CBC w/ auto diff BA # 10*3/u L 0.01 0.08 0.02 FINAL Marcelo [facility] ([facility]), [address], [address] [place] [address] 06/21 CBC w/ auto diff Cristobal % % 34.0 67.9 75.4 High FINAL Marcelo [facility] ([facility]), [address], [address] [place] [address] 06/21 CBC w/ auto diff LY % % 21.8 53.1 14.8 Low FINAL Marcelo [facility] ([facility]), [address], [address] [place] [address] 06/21 CBC w/ auto diff MO % % 5.3 12.2 9.5 FINAL Marcelo [facility] ([facility]), [address], [address] [place] [address] 06/21 CBC w/ auto diff EO % % 0.8 7.0 0.2 Low FINAL Marcelo [facility] ([facility]), [address], [address] [place] [address] 06/21 CBC w/ auto diff BA % % 0.2 1.2 0.1 Low FINAL Marcelo [facility] ([facility]), [address], [address] [place] [address] 06/21 CBC w/ auto diff RBC 10*6/u L 4.63 6.08 4.90 FINAL Marcelo [facility] ([facility]), [address], [address] [place] [address] 06/21 CBC w/ auto diff HGB g/dL 13.7 17.5 16.0 FINAL [facility] ([facility]), [address], [address] [place] [address] 06/21 CBC w/ auto diff HCT % 40.1 51.0 47.5 FINAL [facility] ([facility]), [address], [address] [place] [address] 06/21 CBC w/ auto diff MCV fL 79.0 92.2 96.9 High FINAL [facility] ([facility]), [address], [address] [place], [place] [address] 06/21 CBC w/ auto diff MCH pg 25.7 32.2 32.7 High FINAL [facility] ([facility]), [address], [address] [place] [address] 06/21 CBC w/ auto diff MCHC g/dL 32.3 36.5 33.7 FINAL [facility] ([facility]), [address], [address] [facility] [address] 06/21 CBC w/ auto diff RDW-C V, % % 11.6 14.4 14.0 FINAL [facility] ([facility]), [address], [address] [facility] [address] 06/21 CBC w/ auto diff PLT 10*3/u L 163.0 337.0 185.0 FINAL [facility] ([facility]), [address], [address] [place], [place] [address] 07/23 Lab Repor t See mill tender d Medications Date Name Route Dose [...] Oral orally 5000.0 mcg daily active 12/22 [place] 3-DHA-E PA-Fish Oil Oral Liquid 1,600 mg-500 [...]
--- OUTSIDE RECORDS SUMMARY | 2025-10-19 17:04 | XMS_ITS | CCD ---
Author Name Interface, [id number] lity Address [address] [phone] Organization [facility] Address [address] [place] [address] Care Team Providers Care Brim Rounder Name Role Phone Whitney HUGHES, Marcelo Munguia [...] Oral orally 25.0 mg daily active 12/22 [place] 3-DHA-E PA-Fish Oil Oral Liquid 1,600 mg-500 [...]
--- OUTSIDE RECORDS SUMMARY | 2025-10-19 17:04 | XMS_ITS | CCD ---
Author Name Interface, [id number] lity Address [address] [phone] Organization [facility] Address [address] [place] [address] Care Team Providers Care Senior Manager Quality Assurance Name Role Phone Whitney HUGHES, Marcelo Munguia [...] Oral orally 25.0 mg daily active 12/22 [place] 3-DHA-E PA-Fish Oil Oral Liquid 1,600 mg-500 [...]
--- OUTSIDE RECORDS SUMMARY | 2025-10-19 17:04 | XMS_ITS ---
Author Name Interface, [id number] lity Address [address] [place] [address] Organization [facility] Address [address] [place] [address] Allergies and Adverse Reactions Medication/Group Name Reaction [...] 8.8 FINAL Marcelo Olson B&Whole Blood [facility] ([facility]), [address], [address] [place] [address] 02/15 CBC w/ auto diff Cristobal # (ANC) 10*3/u L 1.78 5.38 4.12 FINAL Marcelo Olson B&Whole Blood [facility] ([facility]), [address], [address] [place] [address] 02/15 CBC w/ auto diff LY # 10*3/u L 1.32 3.57 3.32 FINAL Marcelo Olson B&Whole Blood [facility] ([facility]), [address], [address] [place] [address] 02/15 CBC w/ auto diff MO # 10*3/u L 0.3 0.82 0.96 High FINAL Marcelo Olson B&Whole Blood [facility] ([facility]), [address], [address] [place] [address] 02/15 CBC w/ auto diff EO # 10*3/u lL 0.04 0.54 0.36 FINAL Marcelo Olson B&Whole Blood [facility] ([facility]), [address], [address] [place] [address] 02/15 CBC w/ auto diff BA # 10*3/u L 0.01 0.08 0.04 FINAL Marcelo Olson B&Whole Blood [facility] ([facility]), [address], [address] [place] [address] 02/15 CBC w/ auto diff Cristobal % % 34.0 67.9 46.8 FINAL Marcelo Olson B&Whole Blood [facility] ([facility]), [address], [address] [place] [address] 02/15 CBC w/ auto diff LY % % 21.8 53.1 37.7 FINAL Marcelo Mahmoods B&Whole Blood [facility] ([facility]), [address], [address] [facility] [place] [address] [place] [address] 02/15 CBC w/ auto diff MO % % 5.3 12.2 10.9 FINAL Marcelo Mahmoods B&Whole Blood [facility] ([facility]), [address], [address] [facility] [place] [address] [place] [address] 02/15 CBC w/ auto diff EO % % 0.8 7.0 4.1 FINAL Marcelo Olson B&Whole Blood [facility] ([facility]), [address], [address] [facility] [address] [place] [facility] 02/15 CBC w/ auto diff BA % % 0.2 1.2 0.5 FINAL Marcelo Mahmoods B&Whole Blood [facility] ([facility]), [address], [address] [facility] [address] [place] [facility] 02/15 CBC w/ auto diff RBC 10*6/u L 4.63 6.08 5.33 FINAL Marcelo Mahmoods B&Whole Blood [facility] ([facility]), [address], [address] [facility] [address] [place] [facility] 02/15 CBC w/ auto diff HGB g/dL 13.7 17.5 17.4 FINAL Marcelo Olson B&Whole Blood [facility] ([facility]), [address], [address] [facility] [address] [place] [facility] 02/15 CBC w/ auto diff HCT % 40.1 51.0 50.4 FINAL Marcelo Mahmoods B&Whole Blood [facility] ([facility]), [address], [address] [facility] [address] [place] [facility] 02/15 CBC w/ auto diff MCV fL 79.0 92.2 94.6 High FINAL Marcelo Mahmoods B&Whole Blood [facility] ([facility]), [address], [address] [facility] [address] [place] [address] 02/15 CBC w/ auto diff MCH pg 25.7 32.2 32.6 High FINAL Marcelo Mahmoods B&Whole Blood [facility] ([facility]), [address], [address] [facility] [address] [place] [address] 02/15 CBC w/ auto diff MCHC g/dL 32.3 36.5 34.5 FINAL Marcelo Mahmoods B&Whole Blood [facility] ([facility]), [address], [address] [place] [address] 02/15 CBC w/ auto diff RDW-C V, % % 11.6 14.4 14.0 FINAL Marcelo Mahmoods B&Whole Blood [facility] (T), [address], [address] [place] [address] 02/15 CBC w/ auto diff PLT 10*3/u L 163.0 337.0 172.0 FINAL Marcelo Mahmoods B&Whole Blood [facility] ([facility]), [address], [address] [place] [address] 05/31 CBC w/ auto diff WBC 10*3/u L 4.2 9.1 10.4 High FINAL Marcelo Mahmoods B&Whole Blood [facility] ([facility]), [address], [address] [place] [address] 05/31 CBC w/ auto diff Cristobal # (ANC) 10*3/u L 1.78 5.38 5.26 FINAL Marcelo Mahmoods B&Whole Blood [facility] ([facility]), [address], [address] [place] [address] 05/31 CBC w/ auto diff LY # 10*3/u L 1.32 3.57 3.84 High FINAL Marcelo Mahmoods B&Whole Blood [facility] ([facility]), [address], [address] [place] [address] 05/31 CBC w/ auto diff MO # 10*3/u L 0.3 0.82 0.94 High FINAL Marcelo Mahmoods B&Whole Blood [facility] ([facility]), [address], [address] [place] [address] 05/31 CBC w/ auto diff EO # 10*3/u lL 0.04 0.54 0.30 FINAL Marcelo Mahmoods B&Whole Blood [facility] ([facility]), [address], [address] [place] [address] 05/31 CBC w/ auto diff BA # 10*3/u L 0.01 0.08 0.03 FINAL Marcelo Herms B&Whole Blood [facility] ([facility]), [address], [address] [place] [address] 05/31 CBC w/ auto diff Cristobal % % 34.0 67.9 50.7 FINAL Marcelo Herms B&Whole Blood [facility] (T), [address], [address] [facility] [address] [place] [facility] 05/31 CBC w/ auto diff LY % % 21.8 53.1 37.0 FINAL Marcelo Olson B&Whole Blood [facility] (T), [address], [address] [place] [address] 05/31 CBC w/ auto diff MO % % 5.3 12.2 9.1 FINAL Marcelo Olson B&Whole Blood [facility] ([facility]), [address], [address] [place] [address] 05/31 CBC w/ auto diff EO % % 0.8 7.0 2.9 FINAL Marcelo Olson B&Whole Blood [facility] (T), [address], [address] [place] [address] 05/31 CBC w/ auto diff BA % % 0.2 1.2 0.3 FINAL Marcelo Olson B&Whole Blood [facility] ([facility]), [address], [address] [place] [address] 05/31 CBC w/ auto diff RBC 10*6/u L 4.63 6.08 5.01 FINAL Marcelo Olson B&Whole Blood [facility] ([facility]), [address], [address] [place] [address] 05/31 CBC w/ auto diff HGB g/dL 13.7 17.5 16.4 FINAL Marcelo Olson B&Whole Blood [facility] ([facility]), [address], [address] [place] [address] 05/31 CBC w/ auto diff HCT % 40.1 51.0 47.5 FINAL Marcelo Olson B&Whole Blood [facility] ([facility]), [address], [address] [place] [address] 05/31 CBC w/ auto diff MCV fL 79.0 92.2 94.8 High FINAL Marcelo Olson B&Whole Blood [facility] ([facility]), [address], [address] [place] [address] 05/31 CBC w/ auto diff MCH pg 25.7 32.2 32.7 High FINAL Marcelo Olson B&Whole Blood [facility] (T), [address], [address] [place] [address] 05/31 CBC w/ auto diff MCHC g/dL 32.3 36.5 34.5 FINAL Marcelo [facility] B&Whole Blood [facility] ([facility]), [address], [address] [place] [address] 05/31 CBC w/ auto diff RDW-C V, % % 11.6 14.4 13.8 FINAL Marcelo [facility] B&Whole Blood [facility] ([facility]), [address], [address] [place] [address] 05/31 CBC w/ auto diff PLT 10*3/u L 163.0 337.0 161.0 Low FINAL [facility] B&Whole Blood [facility] ([facility]), [address], [address] [place] [address] 06/21 CBC w/ auto diff WBC 10*3/u L 4.2 9.1 14.1 High FINAL [facility] (T), [address], [address] [place] [address] 06/21 CBC w/ auto diff Cristobal # (ANC) 10*3/u L 1.78 5.38 10.63 High FINAL [facility] ([facility]), [address], [address] [place] [address] 06/21 CBC w/ auto diff LY # 10*3/u L 1.32 3.57 2.09 FINAL [facility] ([facility]), [address], [address] [place], [place] [address] 06/21 CBC w/ auto diff MO # 10*3/u L 0.3 0.82 1.34 High FINAL [facility] ([facility]), [address], [address] [place], [place] [address] 06/21 CBC w/ auto diff EO # 10*3/u lL 0.04 0.54 0.03 Low FINAL [facility] ([facility]), [address], [address] [facility] [address] 06/21 CBC w/ auto diff BA # 10*3/u L 0.01 0.08 0.02 FINAL [facility] ([facility]), [address], [address] [place] [address] 06/21 CBC w/ auto diff Cristobal % % 34.0 67.9 75.4 High FINAL Marcelo [facility]), [address], [address] [place] [address] 06/21 CBC w/ auto diff LY % % 21.8 53.1 14.8 Low FINAL Marcelo [facility] ([facility]), [address], [address] [place] [address] 06/21 CBC w/ auto diff MO % % 5.3 12.2 9.5 FINAL Marcelo [facility] ([facility]), [address], [address] [place] [address] 06/21 CBC w/ auto diff EO % % 0.8 7.0 0.2 Low FINAL Marcelo [facility] ([facility]), [address], [address] [place] [address] 06/21 CBC w/ auto diff BA % % 0.2 1.2 0.1 Low FINAL Marcelo [facility] ([facility]), [address], [address] [place] [address] 06/21 CBC w/ auto diff RBC 10*6/u L 4.63 6.08 4.90 FINAL Marcelo [facility] ([facility]), [address], [address] [place] [address] 06/21 CBC w/ auto diff HGB g/dL 13.7 17.5 16.0 FINAL Marcelo [facility]), [address], [address] [place] [address] 06/21 CBC w/ auto diff HCT % 40.1 51.0 47.5 FINAL Marcelo [facility]), [address], [address] [place] [address] 06/21 CBC w/ auto diff MCV fL 79.0 92.2 96.9 High FINAL Marcelo [facility] ([facility]), [address], [address] [place] [address] 06/21 CBC w/ auto diff MCH pg 25.7 32.2 32.7 High FINAL [facility] ([facility]), [address], [address] [facility] [address] 06/21 CBC w/ auto diff MCHC g/dL 32.3 36.5 33.7 FINAL [facility] (T), [address], [address] [facility] [address] 06/21 CBC w/ auto diff RDW-C V, % % 11.6 14.4 14.0 FINAL [facility] (T), [address], [address] [facility] [address] 06/21 CBC w/ auto diff PLT 10*3/u L 163.0 337.0 185.0 FINAL [facility] ([facility]), [address], [address] [facility] [address] 07/23 Lab Repor t See hook and eye attacher d Medications Date Name Route Dose [...] Oral orally 5000.0 mcg daily active 12/22 [place] 3-DHA-E PA-Fish Oil Oral Liquid 1,600 mg-500 [...] Note Print Location: Unknown Date/Time Printed: 10/19/2025 17:04 ([facility]) Patient: [...] Selected Billing Code(s): PHLEBOTOMY THERAPEUTIC SEPARATE PROCEDURE (96434) Entered By Barbara Casas RN; Incident to Marcelo Olson MD
--- OUTSIDE RECORDS SUMMARY | 2025-10-19 17:04 | XMS_ITS ---
Author Name Interface, [id number] lity Address [address] [place] [address] Organization [facility] Address [address] [place] [address] Allergies and Adverse Reactions Medication/Group Name Reaction [...] 4.2 9.1 14.1 High FINAL Marcelo [facility] ([facility]), [address], [address] [facility] [address] 06/21 CBC w/ auto diff Cristobal # (ANC) 10*3/u L 1.78 5.38 10.63 High FINAL Marcelo [facility] ([facility]), [address], [address] [facility] [address] 06/21 CBC w/ auto diff LY # 10*3/u L 1.32 3.57 2.09 FINAL [facility] ([facility]), [address], [address] [facility] [address] 06/21 CBC w/ auto diff MO # 10*3/u L 0.3 0.82 1.34 High FINAL Marcelo [facility] ([facility]), [address], [address] [place] [address] 06/21 CBC w/ auto diff EO # 10*3/u lL 0.04 0.54 0.03 Low FINAL Marcelo [facility] ([facility]), [address], [address] [place] [address] 06/21 CBC w/ auto diff BA # 10*3/u L 0.01 0.08 0.02 FINAL Marcelo [facility] ([facility]), [address], [address] [place] [address] 06/21 CBC w/ auto diff Cristobal % % 34.0 67.9 75.4 High FINAL Marcelo [facility] ([facility]), [address], [address] [place] [address] 06/21 CBC w/ auto diff LY % % 21.8 53.1 14.8 Low FINAL Marcelo [facility] ([facility]), [address], [address] [place] [address] 06/21 CBC w/ auto diff MO % % 5.3 12.2 9.5 FINAL Marcelo [facility] ([facility]), [address], [address] [place] [address] 06/21 CBC w/ auto diff EO % % 0.8 7.0 0.2 Low FINAL Marcelo [facility] ([facility]), [address], [address] [place] [address] 06/21 CBC w/ auto diff BA % % 0.2 1.2 0.1 Low FINAL Marcelo [facility] ([facility]), [address], [address] [place] [address] 06/21 CBC w/ auto diff RBC 10*6/u L 4.63 6.08 4.90 FINAL Marcelo [facility] ([facility]), [address], [address] [place] [address] 06/21 CBC w/ auto diff HGB g/dL 13.7 17.5 16.0 FINAL [facility] ([facility]), [address], [address] [place] [address] 06/21 CBC w/ auto diff HCT % 40.1 51.0 47.5 FINAL [facility] ([facility]), [address], [address] [place] [address] 06/21 CBC w/ auto diff MCV fL 79.0 92.2 96.9 High FINAL [facility] ([facility]), [address], [address] [place], [place] [address] 06/21 CBC w/ auto diff MCH pg 25.7 32.2 32.7 High FINAL [facility] ([facility]), [address], [address] [place] [address] 06/21 CBC w/ auto diff MCHC g/dL 32.3 36.5 33.7 FINAL [facility] ([facility]), [address], [address] [facility] [address] 06/21 CBC w/ auto diff RDW-C V, % % 11.6 14.4 14.0 FINAL [facility] ([facility]), [address], [address] [facility] [address] 06/21 CBC w/ auto diff PLT 10*3/u L 163.0 337.0 185.0 FINAL [facility] ([facility]), [address], [address] [place], [place] [address] 07/23 Lab Repor t 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
--- OUTSIDE RECORDS SUMMARY | 2025-10-19 17:04 | XMS_ITS | CCD ---
Author Name Interface, [id number] lity Address [address] [phone] Organization [facility] Address [address] [place] [address] Care Team Providers Care Salesperson [employer] Name Role Phone Whitney HUGHES, Marcelo Munguia [...] Oral orally 25.0 mg daily active 12/22 [place] 3-DHA-E PA-Fish Oil Oral Liquid 1,600 mg-500 [...]
--- OUTSIDE RECORDS SUMMARY | 2025-10-19 17:04 | XMS_ITS ---
Author Name Interface, [id number] lity Address [address] [place] [address] Organization [facility] Address [address] [place] [address] Allergies and Adverse Reactions Medication/Group Name Reaction [...] B&Whole Blood Formerly [facility] ([facility]), [address], [address] [place] [address] 02/15 CBC w/ auto diff Cristobal # (ANC) 10*3/u L 1.78 5.38 4.12 FINAL Marcelo Olson B&Whole Blood Formerly [facility] ([facility]), [address] [facility], [address] [place] [address] 02/15 CBC w/ auto diff LY # 10*3/u L 1.32 3.57 3.32 FINAL Marcelo Olson B&Whole Blood Formerly [facility] ([facility]), [address], [address] [place] [address] 02/15 CBC w/ auto diff MO # 10*3/u L 0.3 0.82 0.96 High FINAL Marcelo Olson B&Whole Blood Formerly [facility] ([facility]), [address], [address] [place] [address] 02/15 CBC w/ auto diff EO # 10*3/u lL 0.04 0.54 0.36 FINAL Marcelo Olson B&Whole Blood Formerly [facility] ([facility]), [address], [address] [place] [address] 02/15 CBC w/ auto diff BA # 10*3/u L 0.01 0.08 0.04 FINAL Marcelo Olson B&Whole Blood Formerly [facility] ([facility]), [address], [address] [place] [address] 02/15 CBC w/ auto diff Cristobal % % 34.0 67.9 46.8 FINAL Marcelo Olson B&Whole Blood Formerly [facility] ([facility]), [address], [address] [place] [address] 02/15 CBC w/ auto diff LY % % 21.8 53.1 37.7 FINAL Marcelo Olson B&Whole Blood Formerly [facility] (T), [address], [address] [facility] [place] [address] 02/15 CBC w/ auto diff MO % % 5.3 12.2 10.9 FINAL Marcelo Olson B&Whole Blood Formerly [facility] (T), [address], [address] [facility] [place] [facility] 02/15 CBC w/ auto diff EO % % 0.8 7.0 4.1 FINAL Marcelo Olson B&Whole Blood Formerly [facility] (T), [address], [address] [facility] [place] [facility] 02/15 CBC w/ auto diff BA % % 0.2 1.2 0.5 FINAL Marcelo Olson B&Whole Blood Formerly [facility] ([facility]), [address], [address] [facility] [place] [facility] 02/15 CBC w/ auto diff RBC 10*6/u L 4.63 6.08 5.33 FINAL Marcelo Olson B&Whole Blood Formerly [facility] ([facility]), [address], [address] [facility] [place] [facility] 02/15 CBC w/ auto diff HGB g/dL 13.7 17.5 17.4 FINAL Marcelo Olson B&Whole Blood Formerly [facility] (T), [address], [address] [place] [address] 02/15 CBC w/ auto diff HCT % 40.1 51.0 50.4 FINAL Marcelo Olson B&Whole Blood Formerly [facility] (T), [address], [address] [facility] [place] [facility] 02/15 CBC w/ auto diff MCV fL 79.0 92.2 94.6 High FINAL Marcelo Olson B&Whole Blood Formerly [facility] ([facility]), [address], [address] [facility] [place] [facility] 02/15 CBC w/ auto diff MCH pg 25.7 32.2 32.6 High FINAL Marcelo Olson B&Whole Blood Formerly [facility] (T), [address], [address] [facility] [place] [facility] 02/15 CBC w/ auto diff MCHC g/dL 32.3 36.5 34.5 FINAL Marcelo Mahmoods B&Whole Blood Formerly [facility] (T), [address], [address] [facility] [place] [address] 02/15 CBC w/ auto diff RDW-C V, % % 11.6 14.4 14.0 FINAL Marcelo Mahmoods B&Whole Blood [facility] (T), [address], [address] [place] [address] 02/15 CBC w/ auto diff PLT 10*3/u L 163.0 337.0 172.0 FINAL Marcelo Mahmoods B&Whole Blood Formerly [facility] ([facility]), [address], [address] [place] [address] 05/31 CBC w/ auto diff WBC 10*3/u L 4.2 9.1 10.4 High FINAL Marcelo Herms B&Whole Blood [facility] (T), [address], [address] [place] [address] 05/31 CBC w/ auto diff Cristobal # (ANC) 10*3/u L 1.78 5.38 5.26 FINAL Marcelo Mahmoods B&Whole Blood Formerly [facility] (T), [address], [address] [place] [address] 05/31 CBC w/ auto diff LY # 10*3/u L 1.32 3.57 3.84 High FINAL Marcelo Mahmoods B&Whole Blood [facility] (T), [address], [address] [place] [address] 05/31 CBC w/ auto diff MO # 10*3/u L 0.3 0.82 0.94 High FINAL Marcelo Herms B&Whole Blood [facility] (T), [address], [address] [place] [address] 05/31 CBC w/ auto diff EO # 10*3/u lL 0.04 0.54 0.30 FINAL Marcelo Herms B&Whole Blood [facility] ([facility]), [address], [address] [place] [address] 05/31 CBC w/ auto diff BA # 10*3/u L 0.01 0.08 0.03 FINAL Marcelo Herms B&Whole Blood [facility] (T), [address], [address] [place] [address] 05/31 CBC w/ auto diff Cristobal % % 34.0 67.9 50.7 FINAL Marcelo Herms B&Whole Blood [facility] ([facility]), [address], [address] [facility] [place] [address] 05/31 CBC w/ auto diff LY % % 21.8 53.1 37.0 FINAL Marcelo Olson B&Whole Blood Formerly [facility] ([facility]), [address], [address] [facility] [place] [facility] 05/31 CBC w/ auto diff MO % % 5.3 12.2 9.1 FINAL Marcelo Olson B&Whole Blood Formerly [facility] ([facility]), [address], [address] [facility] [place] [facility] 05/31 CBC w/ auto diff EO % % 0.8 7.0 2.9 FINAL Marcelo Olson B&Whole Blood Formerly [facility] ([facility]), [address], [address] [place] [address] 05/31 CBC w/ auto diff BA % % 0.2 1.2 0.3 FINAL Marcelo Olson B&Whole Blood Formerly [facility] (T), [address], [address] [place] [address] 05/31 CBC w/ auto diff RBC 10*6/u L 4.63 6.08 5.01 FINAL Marcelo Olson B&Whole Blood Formerly [facility] (T), [address], [address] [place] [address] 05/31 CBC w/ auto diff HGB g/dL 13.7 17.5 16.4 FINAL Marcelo Olson B&Whole Blood Formerly [facility] ([facility]), [address], [address] [place] [address] 05/31 CBC w/ auto diff HCT % 40.1 51.0 47.5 FINAL Marcelo Olson B&Whole Blood Formerly [facility] ([facility]), [address], [address] [place] [address] 05/31 CBC w/ auto diff MCV fL 79.0 92.2 94.8 High FINAL Marcelo Mahmoods B&Whole Blood [facility] ([facility]), [address], [address] [place] [address] 05/31 CBC w/ auto diff MCH pg 25.7 32.2 32.7 High FINAL Marcelo Mahmoods B&Whole Blood [facility] ([facility]), [address], [address] [place] [address] 05/31 CBC w/ auto diff MCHC g/dL 32.3 36.5 34.5 FINAL [facility] B&Whole Blood Formerly [facility] (T), [address], [address] [place] [address] 05/31 CBC w/ auto diff RDW-C V, % % 11.6 14.4 13.8 FINAL [facility] B&Whole Blood Formerly [facility] (T), [address], [address] [place] [address] 05/31 CBC w/ auto diff PLT 10*3/u L 163.0 337.0 161.0 Low FINAL [facility] B&Whole Blood Formerly [facility] ([facility]), [address], [address] [place] [address] 06/21 CBC w/ auto diff WBC 10*3/u L 4.2 9.1 14.1 High FINAL [facility] ([facility]), [address], [address] [place] [address] 06/21 CBC w/ auto diff Cristobal # (ANC) 10*3/u L 1.78 5.38 10.63 High FINAL [facility] ([facility]), [address], [address] [place] [address] 06/21 CBC w/ auto diff LY # 10*3/u L 1.32 3.57 2.09 FINAL [facility] ([facility]), [address], [address] [place] [address] 06/21 CBC w/ auto diff MO # 10*3/u L 0.3 0.82 1.34 High FINAL [facility] ([facility]), [address], [address] [place] [address] 06/21 CBC w/ auto diff EO # 10*3/u lL 0.04 0.54 0.03 Low FINAL [facility] ([facility]), [address], [address] [place] [address] 06/21 CBC w/ auto diff BA # 10*3/u L 0.01 0.08 0.02 FINAL [facility] ([facility]), [address], [address] [place] [address] 06/21 CBC w/ auto diff Cristobal % % 34.0 67.9 75.4 High FINAL [facility] ([facility]), [address], [address] [place] [address] 06/21 CBC w/ auto diff LY % % 21.8 53.1 14.8 Low FINAL [facility] ([facility]), [address], [address] [place] [address] 06/21 CBC w/ auto diff MO % % 5.3 12.2 9.5 FINAL [facility] ([facility]), [address], [address] [place] [address] 06/21 CBC w/ auto diff EO % % 0.8 7.0 0.2 Low FINAL [facility] ([facility]), [address], [address] [place] [address] 06/21 CBC w/ auto diff BA % % 0.2 1.2 0.1 Low FINAL [facility] ([facility]), [address], [address] [place] [address] 06/21 CBC w/ auto diff RBC 10*6/u L 4.63 6.08 4.90 FINAL [facility] ([facility]), [address], [address] [place] [address] 06/21 CBC w/ auto diff HGB g/dL 13.7 17.5 16.0 FINAL [facility] ([facility]), [address], [address] [place] [address] 06/21 CBC w/ auto diff HCT % 40.1 51.0 47.5 FINAL [facility] ([facility]), [address], [address] [place] [address] 06/21 CBC w/ auto diff MCV fL 79.0 92.2 96.9 High FINAL [facility] ([facility]), [address], [address] [place] [address] 06/21 CBC w/ auto diff MCH pg 25.7 32.2 32.7 High FINAL [facility] ([facility]), [address], [address] [facility] [address] 06/21 CBC w/ auto diff MCHC g/dL 32.3 36.5 33.7 FINAL [facility] ([facility]), [address], [address] [facility] [address] 06/21 CBC w/ auto diff RDW-C V, % % 11.6 14.4 14.0 FINAL [facility] ([facility]), [address], [address] [facility] [address] 06/21 CBC w/ auto diff PLT 10*3/u L 163.0 337.0 185.0 FINAL [facility] (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 Medications Date Name Route Dose Frequency Instructions Start Date End Date Status Fill Status Indication 12/22 Sitagli ptin-Me tformin Oral 50 mg-1,00 0 mg orally 1.0 2 times per day active 12/22 Aspirin Oral orally 81.0 mg daily active 12/22 Insulin Detemir Subcuta neous 100 unit/mL subcutan eously 36.0 every evening active 12/22 Cyanoco balamin Oral orally 5000.0 mcg daily active 12/22 Wayne 3-DHA-E PA-Fish Oil Oral Liquid 1,600 mg-500 [...] Print Location: Unknown Date/Time Printed: 10/19/2025 17:04 ([facility]) Patient: VALERIE PUENTES Sex: Male : [...] Selected Billing Code(s): PHLEBOTOMY THERAPEUTIC SEPARATE PROCEDURE (99719) Entered By Barbara Casas RN; Incident to Marcelo Olson MD
--- OUTSIDE RECORDS SUMMARY | 2025-10-19 17:04 | XMS_ITS ---
Author Name Interface, [id number] lity Address [address] [place] [address] Organization [facility] Address [address] [place] [address] Allergies and Adverse Reactions Medication/Group Name Reaction [...] 9.1 8.8 FINAL Marcelo Olson B&Whole Blood [facility] ([facility]), [address], [address] [place] [address] 02/15 CBC w/ auto diff Cristobal # (ANC) 10*3/u L 1.78 5.38 4.12 FINAL Marcelo Olson B&Whole Blood [facility] ([facility]), [address], [address] [place] [address] 02/15 CBC w/ auto diff LY # 10*3/u L 1.32 3.57 3.32 FINAL Marcelo Olson B&Whole Blood [facility] ([facility]), [address], [address] [place] [address] 02/15 CBC w/ auto diff MO # 10*3/u L 0.3 0.82 0.96 High FINAL Marcelo Olson B&Whole Blood [facility] ([facility]), [address], [address] [place] [address] 02/15 CBC w/ auto diff EO # 10*3/u lL 0.04 0.54 0.36 FINAL Marcelo Olson B&Whole Blood [facility] ([facility]), [address], [address] [place] [address] 02/15 CBC w/ auto diff BA # 10*3/u L 0.01 0.08 0.04 FINAL Marcelo Olson B&Whole Blood [facility] ([facility]), [address], [address] [place] [address] 02/15 CBC w/ auto diff Cristobal % % 34.0 67.9 46.8 FINAL Marcelo Olson B&Whole Blood [facility] ([facility]), [address], [address] [place] [address] 02/15 CBC w/ auto diff LY % % 21.8 53.1 37.7 FINAL Marcelo Olson B&Whole Blood [facility] (T), [address], Suite [facility] [place] [address] 02/15 CBC w/ auto diff MO % % 5.3 12.2 10.9 FINAL Marcelo Olson B&Whole Blood [facility] (T), [address], [address] [facility] [place] [facility] 02/15 CBC w/ auto diff EO % % 0.8 7.0 4.1 FINAL Marcelo Olson B&Whole Blood [facility] (T), [address], [address] [facility] [place] [facility] 02/15 CBC w/ auto diff BA % % 0.2 1.2 0.5 FINAL Marcelo Olson B&Whole Blood [facility] ([facility]), [address], [address] [facility] [place] [facility] 02/15 CBC w/ auto diff RBC 10*6/u L 4.63 6.08 5.33 FINAL Marcelo Olson B&Whole Blood [facility] ([facility]), [address], [address] [facility] [place] [facility] 02/15 CBC w/ auto diff HGB g/dL 13.7 17.5 17.4 FINAL Marcelo Olson B&Whole Blood [facility] (T), [address], [address] [place] [address] 02/15 CBC w/ auto diff HCT % 40.1 51.0 50.4 FINAL Marcelo Olson B&Whole Blood [facility] (T), [address], [address] [facility] [place] [facility] [place] [facility] 02/15 CBC w/ auto diff MCV fL 79.0 92.2 94.6 High FINAL Marcelo Olson B&Whole Blood [facility] ([facility]), [address], [address] [facility] [place] [facility] 02/15 CBC w/ auto diff MCH pg 25.7 32.2 32.6 High FINAL Marcelo Olson B&Whole Blood [facility] (T), [address], [address] [facility] [place] [facility] 02/15 CBC w/ auto diff MCHC g/dL 32.3 36.5 34.5 FINAL Marcelo Mahmoods B&Whole Blood [facility] (T), [address], Suite [facility] [place] [address] 02/15 CBC w/ auto diff RDW-C V, % % 11.6 14.4 14.0 FINAL Marcelo Mahmoods B&Whole Blood [facility] (T), [address], [address] [place] [address] 02/15 CBC w/ auto diff PLT 10*3/u L 163.0 337.0 172.0 FINAL Marcelo Mahmoods B&Whole Blood [facility] (T), [address], [address] [place] [address] 05/31 CBC w/ auto diff WBC 10*3/u L 4.2 9.1 10.4 High FINAL Marcelo Herms B&Whole Blood [facility] (T), [address], [address] [place] [address] 05/31 CBC w/ auto diff Cristobal # (ANC) 10*3/u L 1.78 5.38 5.26 FINAL Marcelo Mahmoods B&Whole Blood [facility] (T), [address], [address] [place] [address] 05/31 CBC w/ auto diff LY # 10*3/u L 1.32 3.57 3.84 High FINAL Marcelo Mahmoods B&Whole Blood [facility] (T), [address], [address] [place] [address] 05/31 CBC w/ auto diff MO # 10*3/u L 0.3 0.82 0.94 High FINAL Marcelo Herms B&Whole Blood [facility] (T), [address], [address] [place] [address] 05/31 CBC w/ auto diff EO # 10*3/u lL 0.04 0.54 0.30 FINAL Marcelo Herms B&Whole Blood [facility] (T), [address], [address] [place] [address] 05/31 CBC w/ auto diff BA # 10*3/u L 0.01 0.08 0.03 FINAL Marcelo Herms B&Whole Blood [facility] (T), [address], [address] [place] [address] 05/31 CBC w/ auto diff Cristobal % % 34.0 67.9 50.7 FINAL Marcelo Herms B&Whole Blood [facility] ([facility]), [address], [address] [facility] [place] [address] 05/31 CBC w/ auto diff LY % % 21.8 53.1 37.0 FINAL Marcelo Olson B&Whole Blood [facility] ([facility]), [address], [address] [facility] [place] [facility] 05/31 CBC w/ auto diff MO % % 5.3 12.2 9.1 FINAL Marcelo Olson B&Whole Blood [facility] ([facility]), [address], [address] [facility] [place] [facility] 05/31 CBC w/ auto diff EO % % 0.8 7.0 2.9 FINAL Macrelo Olson B&Whole Blood [facility] ([facility]), [address], [address] [place] [address] 05/31 CBC w/ auto diff BA % % 0.2 1.2 0.3 FINAL Marcelo Olson B&Whole Blood [facility] (T), [address], [address] [place] [address] 05/31 CBC w/ auto diff RBC 10*6/u L 4.63 6.08 5.01 FINAL Marcelo Olson B&Whole Blood [facility] (T), [address], [address] [place] [address] 05/31 CBC w/ auto diff HGB g/dL 13.7 17.5 16.4 FINAL Marcelo Olson B&Whole Blood [facility] ([facility]), [address], [address] [place] [address] 05/31 CBC w/ auto diff HCT % 40.1 51.0 47.5 FINAL Marcelo Olson B&Whole Blood [facility] ([facility]), [address], [address] [place] [address] 05/31 CBC w/ auto diff MCV fL 79.0 92.2 94.8 High FINAL Marcelo Mahmoods B&Whole Blood [facility] ([facility]), [address], [address] [place] [address] 05/31 CBC w/ auto diff MCH pg 25.7 32.2 32.7 High FINAL Marcelo Mahmoods B&Whole Blood [facility] ([facility]), [address], [address] [place] [address] 05/31 CBC w/ auto diff MCHC g/dL 32.3 36.5 34.5 FINAL [facility] B&Whole Blood [facility] (T), [address], [address] [place] [address] 05/31 CBC w/ auto diff RDW-C V, % % 11.6 14.4 13.8 FINAL [facility] B&Whole Blood [facility] (T), [address], [address] [place] [address] 05/31 CBC w/ auto diff PLT 10*3/u L 163.0 337.0 161.0 Low FINAL [facility] B&Whole Blood [facility] ([facility]), [address], [address] [place] [address] 06/21 CBC w/ auto diff WBC 10*3/u L 4.2 9.1 14.1 High FINAL [facility] ([facility]), [address], [address] [place] [address] 06/21 CBC w/ auto diff Cristobal # (ANC) 10*3/u L 1.78 5.38 10.63 High FINAL [facility] ([facility]), [address], [address] [place] [address] 06/21 CBC w/ auto diff LY # 10*3/u L 1.32 3.57 2.09 FINAL [facility] ([facility]), [address], [address] [place] [address] 06/21 CBC w/ auto diff MO # 10*3/u L 0.3 0.82 1.34 High FINAL [facility] ([facility]), [address], [address] [place] [address] 06/21 CBC w/ auto diff EO # 10*3/u lL 0.04 0.54 0.03 Low FINAL [facility] ([facility]), [address], [address] [place] [address] 06/21 CBC w/ auto diff BA # 10*3/u L 0.01 0.08 0.02 FINAL [facility] ([facility]), [address], [address] [place] [address] 06/21 CBC w/ auto diff Cristobal % % 34.0 67.9 75.4 High FINAL [facility] ([facility]), [address], [address] [place] [address] 06/21 CBC w/ auto diff LY % % 21.8 53.1 14.8 Low FINAL [facility] ([facility]), [address], [address] [place] [address] 06/21 CBC w/ auto diff MO % % 5.3 12.2 9.5 FINAL [facility] ([facility]), [address], [address] [place] [address] 06/21 CBC w/ auto diff EO % % 0.8 7.0 0.2 Low FINAL [facility] ([facility]), [address], [address] [place] [address] 06/21 CBC w/ auto diff BA % % 0.2 1.2 0.1 Low FINAL [facility] ([facility]), [address], [address] [place] [address] 06/21 CBC w/ auto diff RBC 10*6/u L 4.63 6.08 4.90 FINAL [facility] ([facility]), [address], [address] [place] [address] 06/21 CBC w/ auto diff HGB g/dL 13.7 17.5 16.0 FINAL [facility] ([facility]), [address], [address] [place] [address] 06/21 CBC w/ auto diff HCT % 40.1 51.0 47.5 FINAL [facility] ([facility]), [address], [address] [place] [address] 06/21 CBC w/ auto diff MCV fL 79.0 92.2 96.9 High FINAL [facility] ([facility]), [address], [address] [place] [address] 06/21 CBC w/ auto diff MCH pg 25.7 32.2 32.7 High FINAL [facility] ([facility]), [address], [address] [facility] [address] 06/21 CBC w/ auto diff MCHC g/dL 32.3 36.5 33.7 FINAL [facility] ([facility]), [address], [address] [facility] [address] 06/21 CBC w/ auto diff RDW-C V, % % 11.6 14.4 14.0 FINAL [facility] ([facility]), [address], [address] [facility] [address] 06/21 CBC w/ auto diff PLT 10*3/u L 163.0 337.0 185.0 FINAL [facility] ([facility]), [address], [address] [facility] [address] 07/23 Lab Repor t See fundraising specialist d Medications Date Name Route Dose Frequency Instructions Start Date End Date Status Fill Status Indication 12/22 Sitagli ptin-Me tformin Oral 50 mg-1,00 0 mg orally 1.0 2 times per day active 12/22 Aspirin Oral orally 81.0 mg daily active 12/22 Insulin Detemir Subcuta neous 100 unit/mL subcutan eously 36.0 every evening active 12/22 Cyanoco balamin Oral orally 5000.0 mcg daily active 12/22 [place] 3-DHA-E PA-Fish Oil Oral Liquid 1,600 mg-500 [...] Print Location: Unknown Date/Time Printed: 10/19/2025 17:03 ([facility]) Patient: VALERIE PUENTES Sex: Male : [...] Selected Billing Code(s): PHLEBOTOMY THERAPEUTIC SEPARATE PROCEDURE (59529) Entered By Barbara Casas RN; Incident to Marcelo Olson MD
--- OUTSIDE RECORDS SUMMARY | 2025-10-19 17:04 | XMS_ITS ---
Author Name Interface, [id number] lity Address [address] [place] [address] Organization [facility] Address [address] [place] [address] Allergies and Adverse Reactions Medication/Group Name Reaction [...] L 4.2 9.1 14.1 High FINAL Marcelo [facility] ([facility]), [address], [address] [facility] [address] 06/21 CBC w/ auto diff Cristobal # (ANC) 10*3/u L 1.78 5.38 10.63 High FINAL Marcelo [facility] ([facility]), [address], [address] [facility] [address] 06/21 CBC w/ auto diff LY # 10*3/u L 1.32 3.57 2.09 FINAL [facility] ([facility]), [address], [address] [facility] [address] 06/21 CBC w/ auto diff MO # 10*3/u L 0.3 0.82 1.34 High FINAL Marcelo [facility] ([facility]), [address], [address] [place] [address] 06/21 CBC w/ auto diff EO # 10*3/u lL 0.04 0.54 0.03 Low FINAL Marcelo [facility] ([facility]), [address], [address] [place] [address] 06/21 CBC w/ auto diff BA # 10*3/u L 0.01 0.08 0.02 FINAL Marcelo [facility] ([facility]), [address], [address] [place] [address] 06/21 CBC w/ auto diff Cristobal % % 34.0 67.9 75.4 High FINAL Marcelo [facility] ([facility]), [address], [address] [place] [address] 06/21 CBC w/ auto diff LY % % 21.8 53.1 14.8 Low FINAL Marcelo [facility] ([facility]), [address], [address] [place] [address] 06/21 CBC w/ auto diff MO % % 5.3 12.2 9.5 FINAL Marcelo [facility] ([facility]), [address], [address] [place] [address] 06/21 CBC w/ auto diff EO % % 0.8 7.0 0.2 Low FINAL Marcelo [facility] ([facility]), [address], [address] [place] [address] 06/21 CBC w/ auto diff BA % % 0.2 1.2 0.1 Low FINAL Marcelo [facility] ([facility]), [address], [address] [place] [address] 06/21 CBC w/ auto diff RBC 10*6/u L 4.63 6.08 4.90 FINAL Marcelo [facility] ([facility]), [address], [address] [place] [address] 06/21 CBC w/ auto diff HGB g/dL 13.7 17.5 16.0 FINAL [facility] ([facility]), [address], [address] [place] [address] 06/21 CBC w/ auto diff HCT % 40.1 51.0 47.5 FINAL [facility] ([facility]), [address], [address] [place] [address] 06/21 CBC w/ auto diff MCV fL 79.0 92.2 96.9 High FINAL [facility] ([facility]), [address], [address] [place], [place] [address] 06/21 CBC w/ auto diff MCH pg 25.7 32.2 32.7 High FINAL [facility] ([facility]), [address], [address] [place] [address] 06/21 CBC w/ auto diff MCHC g/dL 32.3 36.5 33.7 FINAL [facility] ([facility]), [address], [address] [facility] [address] 06/21 CBC w/ auto diff RDW-C V, % % 11.6 14.4 14.0 FINAL [facility] ([facility]), [address], [address] [facility] [address] 06/21 CBC w/ auto diff PLT 10*3/u L 163.0 337.0 185.0 FINAL [facility] ([facility]), [address], [address] [place], [place] [address] 07/23 Lab Repor t See wine manager d Medications Date Name Route Dose [...] Oral orally 5000.0 mcg daily active 12/22 [place] 3-DHA-E PA-Fish Oil Oral Liquid 1,600 mg-500 [...]
--- OUTSIDE RECORDS SUMMARY | 2025-10-19 17:04 | XMS_ITS ---
Author Name Interface, [id number] lity Address [address] [place] [address] Organization [facility] Address [address] [place] [address] Allergies and Adverse Reactions Medication/Group Name Reaction [...] FINAL Marcelo Olson B&Whole Blood [facility] ([facility]), [address], [address] [place] [address] 02/15 CBC w/ auto diff Cristobal # (ANC) 10*3/u L 1.78 5.38 4.12 FINAL Marcelo Olson B&Whole Blood [facility] ([facility]), [address] [facility], [address] [place] [address] 02/15 CBC w/ auto diff LY # 10*3/u L 1.32 3.57 3.32 FINAL Marcelo Olson B&Whole Blood [facility] ([facility]), [address], [address] [place] [address] 02/15 CBC w/ auto diff MO # 10*3/u L 0.3 0.82 0.96 High FINAL Marcelo Olson B&Whole Blood [facility] ([facility]), [address], [address] [place] [address] 02/15 CBC w/ auto diff EO # 10*3/u lL 0.04 0.54 0.36 FINAL Marcelo Olson B&Whole Blood [facility] ([facility]), [address], [address] [place] [address] 02/15 CBC w/ auto diff BA # 10*3/u L 0.01 0.08 0.04 FINAL Marcelo Olson B&Whole Blood [facility] ([facility]), [address] [facility], [address] [place] [address] 02/15 CBC w/ auto diff Cristobal % % 34.0 67.9 46.8 FINAL Marcelo Olson B&Whole Blood [facility] ([facility]), [address], [address] [place] [address] 02/15 CBC w/ auto diff LY % % 21.8 53.1 37.7 FINAL Marcelo Olson B&Whole Blood [facility] (T), [address], [place] [facility] [place] [address] 02/15 CBC w/ auto diff MO % % 5.3 12.2 10.9 FINAL Marcelo Olson B&Whole Blood [facility] (T), [address], Suite [facility] [place] [facility] 02/15 CBC w/ auto diff EO % % 0.8 7.0 4.1 FINAL Marcelo Olson B&Whole Blood [facility] (T), [address], [address] [facility] [place] [facility] 02/15 CBC w/ auto diff BA % % 0.2 1.2 0.5 FINAL Marcelo Olson B&Whole Blood [facility] ([facility]), [address], [address] [facility] [place] [facility] 02/15 CBC w/ auto diff RBC 10*6/u L 4.63 6.08 5.33 FINAL Marcelo Olson B&Whole Blood [facility] ([facility]), [address], [address] [facility] [place] [facility] 02/15 CBC w/ auto diff HGB g/dL 13.7 17.5 17.4 FINAL Marcelo Olson B&Whole Blood [facility] (T), [address], [address] [place] [address] 02/15 CBC w/ auto diff HCT % 40.1 51.0 50.4 FINAL Marcelo Olson B&Whole Blood [facility] (T), [address], [address] [facility] [place] [facility] 02/15 CBC w/ auto diff MCV fL 79.0 92.2 94.6 High FINAL Marcelo Olson B&Whole Blood [facility] ([facility]), [address], [address] [facility] [place] [facility] 02/15 CBC w/ auto diff MCH pg 25.7 32.2 32.6 High FINAL Marcelo Olson B&Whole Blood [facility] (T), [address], [address] [facility] [place] [facility] 02/15 CBC w/ auto diff MCHC g/dL 32.3 36.5 34.5 FINAL Marcelo Mahmoods B&Whole Blood [facility] (T), [address], Suite [facility] [place] [address] 02/15 CBC w/ auto diff RDW-C V, % % 11.6 14.4 14.0 FINAL Marcelo Mahmoods B&Whole Blood [facility] (T), [address], [address] [place] [address] 02/15 CBC w/ auto diff PLT 10*3/u L 163.0 337.0 172.0 FINAL Marcelo Mahmoods B&Whole Blood [facility] (T), [address], [address] [place] [address] 05/31 CBC w/ auto diff WBC 10*3/u L 4.2 9.1 10.4 High FINAL Marcelo Herms B&Whole Blood [facility] (T), [address], [address] [place] [address] 05/31 CBC w/ auto diff Cristobal # (ANC) 10*3/u L 1.78 5.38 5.26 FINAL Marcelo Mahmoods B&Whole Blood [facility] (T), [address], [address] [place] [address] 05/31 CBC w/ auto diff LY # 10*3/u L 1.32 3.57 3.84 High FINAL Marcelo Mahmoods B&Whole Blood [facility] (T), [address], [address] [place] [address] 05/31 CBC w/ auto diff MO # 10*3/u L 0.3 0.82 0.94 High FINAL Marcelo Herms B&Whole Blood [facility] (T), [address], [address] [place] [address] 05/31 CBC w/ auto diff EO # 10*3/u lL 0.04 0.54 0.30 FINAL Marcelo Herms B&Whole Blood [facility] (T), [address], [address] [place] [address] 05/31 CBC w/ auto diff BA # 10*3/u L 0.01 0.08 0.03 FINAL Marcelo Herms B&Whole Blood [facility] (T), [address], [address] [place] [address] 05/31 CBC w/ auto diff Cristobal % % 34.0 67.9 50.7 FINAL Marcelo Herms B&Whole Blood [facility] ([facility]), [address], [place] [facility] [place] [address] 05/31 CBC w/ auto diff LY % % 21.8 53.1 37.0 FINAL Marcelo Olson B&Whole Blood [facility] ([facility]), [address], [address] [facility] [place] [facility] 05/31 CBC w/ auto diff MO % % 5.3 12.2 9.1 FINAL Marcelo Olson B&Whole Blood [facility] ([facility]), [address], [address] [facility] [place] [facility] 05/31 CBC w/ auto diff EO % % 0.8 7.0 2.9 FINAL Marcelo Olson B&Whole Blood [facility] ([facility]), [address], [address] [place] [address] 05/31 CBC w/ auto diff BA % % 0.2 1.2 0.3 FINAL Marcelo Olson B&Whole Blood [facility] (T), [address], [address] [place] [address] 05/31 CBC w/ auto diff RBC 10*6/u L 4.63 6.08 5.01 FINAL Marcelo Olson B&Whole Blood [facility] (T), [address], [address] [place] [address] 05/31 CBC w/ auto diff HGB g/dL 13.7 17.5 16.4 FINAL Marcelo Olson B&Whole Blood [facility] ([facility]), [address], [address] [place] [address] 05/31 CBC w/ auto diff HCT % 40.1 51.0 47.5 FINAL Marcelo Olson B&Whole Blood [facility] ([facility]), [address], [address] [place] [address] 05/31 CBC w/ auto diff MCV fL 79.0 92.2 94.8 High FINAL Marcelo Mahmoods B&Whole Blood [facility] ([facility]), [address], [address] [place] [address] 05/31 CBC w/ auto diff MCH pg 25.7 32.2 32.7 High FINAL Marcelo Mahmoods B&Whole Blood [facility] ([facility]), [address], [address] [place] [address] 05/31 CBC w/ auto diff MCHC g/dL 32.3 36.5 34.5 FINAL [facility] B&Whole Blood [facility] (T), [address], [address] [place] [address] 05/31 CBC w/ auto diff RDW-C V, % % 11.6 14.4 13.8 FINAL [facility] B&Whole Blood [facility] (T), [address], [address] [place] [address] 05/31 CBC w/ auto diff PLT 10*3/u L 163.0 337.0 161.0 Low FINAL [facility] B&Whole Blood [facility] ([facility]), [address], [address] [place] [address] 06/21 CBC w/ auto diff WBC 10*3/u L 4.2 9.1 14.1 High FINAL [facility] ([facility]), [address], [address] [place] [address] 06/21 CBC w/ auto diff Cristobal # (ANC) 10*3/u L 1.78 5.38 10.63 High FINAL [facility] ([facility]), [address], [address] [place] [address] 06/21 CBC w/ auto diff LY # 10*3/u L 1.32 3.57 2.09 FINAL [facility] ([facility]), [address], [address] [place] [address] 06/21 CBC w/ auto diff MO # 10*3/u L 0.3 0.82 1.34 High FINAL [facility] ([facility]), [address], [address] [place] [address] 06/21 CBC w/ auto diff EO # 10*3/u lL 0.04 0.54 0.03 Low FINAL [facility] ([facility]), [address], [address] [place] [address] 06/21 CBC w/ auto diff BA # 10*3/u L 0.01 0.08 0.02 FINAL [facility] ([facility]), [address], [address] [place] [address] 06/21 CBC w/ auto diff Cristobal % % 34.0 67.9 75.4 High FINAL [facility] ([facility]), [address], [address] [place] [address] 06/21 CBC w/ auto diff LY % % 21.8 53.1 14.8 Low FINAL [facility] ([facility]), [address], [address] [place] [address] 06/21 CBC w/ auto diff MO % % 5.3 12.2 9.5 FINAL [facility] ([facility]), [address], [address] [place] [address] 06/21 CBC w/ auto diff EO % % 0.8 7.0 0.2 Low FINAL [facility] ([facility]), [address], [address] [place] [address] 06/21 CBC w/ auto diff BA % % 0.2 1.2 0.1 Low FINAL [facility] ([facility]), [address], [address] [place] [address] 06/21 CBC w/ auto diff RBC 10*6/u L 4.63 6.08 4.90 FINAL [facility] ([facility]), [address], [address] [place] [address] 06/21 CBC w/ auto diff HGB g/dL 13.7 17.5 16.0 FINAL [facility] ([facility]), [address], [address] [place] [address] 06/21 CBC w/ auto diff HCT % 40.1 51.0 47.5 FINAL [facility] ([facility]), [address], [address] [place] [address] 06/21 CBC w/ auto diff MCV fL 79.0 92.2 96.9 High FINAL [facility] ([facility]), [address], [address] [place] [address] 06/21 CBC w/ auto diff MCH pg 25.7 32.2 32.7 High FINAL [facility] ([facility]), [address], [address] [facility] [address] 06/21 CBC w/ auto diff MCHC g/dL 32.3 36.5 33.7 FINAL [facility] ([facility]), [address], [address] [facility] [address] 06/21 CBC w/ auto diff RDW-C V, % % 11.6 14.4 14.0 FINAL [facility] ([facility]), [address], [address] [facility] [address] 06/21 CBC w/ auto diff PLT 10*3/u L 163.0 337.0 185.0 FINAL [facility] ([facility]), [address], [address] [facility] [address] 07/23 Lab Repor t See pin attacher d Medications Date Name Route Dose [...] Oral orally 5000.0 mcg daily active 12/22 [place] 3-DHA-E PA-Fish Oil Oral Liquid 1,600 mg-500 [...] Print Location: Unknown Date/Time Printed: 10/19/2025 17:03 (Lauren/[facility]) Patient: VALERIE PUENTES Sex: Male [...] Selected Billing Code(s): PHLEBOTOMY THERAPEUTIC SEPARATE PROCEDURE (01191) Entered By Barbara Casas RN; Incident to Marcelo Olson MD
--- OUTSIDE RECORDS SUMMARY | 2025-10-19 17:04 | XMS_ITS ---
Author Name Interface, [id number] lity Address [address] [place] [address] Organization [facility] Address [address] [place] [address] Allergies and Adverse Reactions Medication/Group Name Reaction [...] B&Whole Blood [facility] ([facility]), [address], [address] [place] [address] 02/15 CBC w/ auto diff Cristobal # (ANC) 10*3/u L 1.78 5.38 4.12 FINAL Marcelo Olson B&Whole Blood [facility] ([facility]), [address] [place] [address] 02/15 CBC w/ auto diff LY # 10*3/u L 1.32 3.57 3.32 FINAL Marcelo Olson B&Whole Blood [facility] ([facility]), [address], [address] [place] [address] 02/15 CBC w/ auto diff MO # 10*3/u L 0.3 0.82 0.96 High FINAL Marcelo Olson B&Whole Blood [facility] ([facility]), [address], [address] [place] [address] 02/15 CBC w/ auto diff EO # 10*3/u lL 0.04 0.54 0.36 FINAL Marcelo Olson B&Whole Blood [facility] ([facility]), [address], [address] [place] [address] 02/15 CBC w/ auto diff BA # 10*3/u L 0.01 0.08 0.04 FINAL Marcelo Olson B&Whole Blood [facility] ([facility]), [address], [address] [place] [address] 02/15 CBC w/ auto diff Cristobal % % 34.0 67.9 46.8 FINAL Marcelo Olson B&Whole Blood [facility] ([facility]), [address], [address] [place] [address] 02/15 CBC w/ auto diff LY % % 21.8 53.1 37.7 FINAL Marcelo Olson B&Whole Blood [facility] (T), [address], [address] [facility] [place] [address] 02/15 CBC w/ auto diff MO % % 5.3 12.2 10.9 FINAL Marcelo Olson B&Whole Blood [facility] (T), [address], [address] [facility] [place] [facility] 02/15 CBC w/ auto diff EO % % 0.8 7.0 4.1 FINAL Marcelo Olson B&Whole Blood [facility] (T), [address], [address] [facility] [place] [facility] 02/15 CBC w/ auto diff BA % % 0.2 1.2 0.5 FINAL Marcelo Olson B&Whole Blood [facility] ([facility]), [address], [address] [facility] [place] [facility] 02/15 CBC w/ auto diff RBC 10*6/u L 4.63 6.08 5.33 FINAL Marcelo Olson B&Whole Blood [facility] ([facility]), [address], [address] [facility] [place] [facility] 02/15 CBC w/ auto diff HGB g/dL 13.7 17.5 17.4 FINAL Marcelo Olson B&Whole Blood [facility] (T), [address], [address] [place] [address] 02/15 CBC w/ auto diff HCT % 40.1 51.0 50.4 FINAL Marcelo Olson B&Whole Blood [facility] (T), [address], [address] [facility] [place] [facility] 02/15 CBC w/ auto diff MCV fL 79.0 92.2 94.6 High FINAL Marcelo Olson B&Whole Blood [facility] ([facility]), [address], [address] [facility] [place] [facility] 02/15 CBC w/ auto diff MCH pg 25.7 32.2 32.6 High FINAL Marcelo Olson B&Whole Blood [facility] (T), [address], [address] [facility] [place] [facility] 02/15 CBC w/ auto diff MCHC g/dL 32.3 36.5 34.5 FINAL Marcelo Mahmoods B&Whole Blood [facility] (T), [address], [address] [facility] [place] [address] 02/15 CBC w/ auto diff RDW-C V, % % 11.6 14.4 14.0 FINAL Marcelo Mahmoods B&Whole Blood [facility] (T), [address], [address] [place] [address] 02/15 CBC w/ auto diff PLT 10*3/u L 163.0 337.0 172.0 FINAL Marcelo Mahmoods B&Whole Blood [facility] (T), [address], [address] [place] [address] 05/31 CBC w/ auto diff WBC 10*3/u L 4.2 9.1 10.4 High FINAL Marcelo Herms B&Whole Blood [facility] (T), [address], [address] [place] [address] 05/31 CBC w/ auto diff Cristobal # (ANC) 10*3/u L 1.78 5.38 5.26 FINAL Marcelo Mahmoods B&Whole Blood [facility] (T), [address], [address] [place] [address] 05/31 CBC w/ auto diff LY # 10*3/u L 1.32 3.57 3.84 High FINAL Marcelo Mahmoods B&Whole Blood [facility] (T), [address], [address] [place] [address] 05/31 CBC w/ auto diff MO # 10*3/u L 0.3 0.82 0.94 High FINAL Marcelo Herms B&Whole Blood [facility] (T), [address], [address] [place] [address] 05/31 CBC w/ auto diff EO # 10*3/u lL 0.04 0.54 0.30 FINAL Marcelo Herms B&Whole Blood [facility] (T), [address], [address] [place] [address] 05/31 CBC w/ auto diff BA # 10*3/u L 0.01 0.08 0.03 FINAL Marcelo Herms B&Whole Blood [facility] (T), [address], [address] [place] [address] 05/31 CBC w/ auto diff Cristobal % % 34.0 67.9 50.7 FINAL Marcelo Herms B&Whole Blood [facility] ([facility]), [address], [address] [facility] [place] [address] 05/31 CBC w/ auto diff LY % % 21.8 53.1 37.0 FINAL Marcelo Olson B&Whole Blood [facility] ([facility]), [address], [address] [facility] [place] [facility] 05/31 CBC w/ auto diff MO % % 5.3 12.2 9.1 FINAL Marcelo Olson B&Whole Blood [facility] ([facility]), [address], [address] [facility] [place] [facility] 05/31 CBC w/ auto diff EO % % 0.8 7.0 2.9 FINAL Marcelo Olson B&Whole Blood [facility] ([facility]), [address], [address] [place] [address] 05/31 CBC w/ auto diff BA % % 0.2 1.2 0.3 FINAL Marcelo Olson B&Whole Blood [facility] (T), [address], [address] [place] [address] 05/31 CBC w/ auto diff RBC 10*6/u L 4.63 6.08 5.01 FINAL Marcelo Olson B&Whole Blood [facility] (T), [address], [address] [place] [address] 05/31 CBC w/ auto diff HGB g/dL 13.7 17.5 16.4 FINAL Marcelo Olson B&Whole Blood [facility] ([facility]), [address], [address] [place] [address] 05/31 CBC w/ auto diff HCT % 40.1 51.0 47.5 FINAL Marcelo Olson B&Whole Blood [facility] ([facility]), [address], [address] [place] [address] 05/31 CBC w/ auto diff MCV fL 79.0 92.2 94.8 High FINAL Marcelo Mahmoods B&Whole Blood [facility] ([facility]), [address], [address] [place] [address] 05/31 CBC w/ auto diff MCH pg 25.7 32.2 32.7 High FINAL Marcelo Mahmoods B&Whole Blood [facility] ([facility]), [address], [address] [place] [address] 05/31 CBC w/ auto diff MCHC g/dL 32.3 36.5 34.5 FINAL [facility] B&Whole Blood [facility] (T), [address], [address] [place] [address] 05/31 CBC w/ auto diff RDW-C V, % % 11.6 14.4 13.8 FINAL [facility] B&Whole Blood [facility] (T), [address], [address] [place] [address] 05/31 CBC w/ auto diff PLT 10*3/u L 163.0 337.0 161.0 Low FINAL [facility] B&Whole Blood [facility] ([facility]), [address], [address] [place] [address] 06/21 CBC w/ auto diff WBC 10*3/u L 4.2 9.1 14.1 High FINAL [facility] ([facility]), [address], [address] [place] [address] 06/21 CBC w/ auto diff Cristobal # (ANC) 10*3/u L 1.78 5.38 10.63 High FINAL [facility] ([facility]), [address], [address] [place] [address] 06/21 CBC w/ auto diff LY # 10*3/u L 1.32 3.57 2.09 FINAL [facility] ([facility]), [address], [address] [place] [address] 06/21 CBC w/ auto diff MO # 10*3/u L 0.3 0.82 1.34 High FINAL [facility] ([facility]), [address], [address] [place] [address] 06/21 CBC w/ auto diff EO # 10*3/u lL 0.04 0.54 0.03 Low FINAL [facility] ([facility]), [address], [address] [place] [address] 06/21 CBC w/ auto diff BA # 10*3/u L 0.01 0.08 0.02 FINAL [facility] ([facility]), [address], [address] [place] [address] 06/21 CBC w/ auto diff Cristobal % % 34.0 67.9 75.4 High FINAL [facility] ([facility]), [address], [address] [place] [address] 06/21 CBC w/ auto diff LY % % 21.8 53.1 14.8 Low FINAL [facility] ([facility]), [address], [address] [place] [address] 06/21 CBC w/ auto diff MO % % 5.3 12.2 9.5 FINAL [facility] ([facility]), [address], [address] [place] [address] 06/21 CBC w/ auto diff EO % % 0.8 7.0 0.2 Low FINAL [facility] ([facility]), [address], [address] [place] [address] 06/21 CBC w/ auto diff BA % % 0.2 1.2 0.1 Low FINAL [facility] ([facility]), [address], [address] [place] [address] 06/21 CBC w/ auto diff RBC 10*6/u L 4.63 6.08 4.90 FINAL [facility] ([facility]), [address], [address] [place] [address] 06/21 CBC w/ auto diff HGB g/dL 13.7 17.5 16.0 FINAL [facility] ([facility]), [address], [address] [place] [address] 06/21 CBC w/ auto diff HCT % 40.1 51.0 47.5 FINAL [facility] ([facility]), [address], [address] [place] [address] 06/21 CBC w/ auto diff MCV fL 79.0 92.2 96.9 High FINAL [facility] ([facility]), [address], [address] [place] [address] 06/21 CBC w/ auto diff MCH pg 25.7 32.2 32.7 High FINAL [facility] ([facility]), [address], [address] [facility] [address] 06/21 CBC w/ auto diff MCHC g/dL 32.3 36.5 33.7 FINAL [facility] ([facility]), [address], [address] [facility] [address] 06/21 CBC w/ auto diff RDW-C V, % % 11.6 14.4 14.0 FINAL [facility] ([facility]), [address], [address] [facility] [address] 06/21 CBC w/ auto diff PLT 10*3/u L 163.0 337.0 185.0 FINAL [facility] ([facility]), [address], [address] [facility] [address] 07/23 Lab Repor t See assisted living assistant d Medications Date Name Route Dose Frequency Instructions Start Date End Date Status Fill Status Indication 12/22 Sitagli ptin-Me tformin Oral 50 mg-1,00 0 mg orally 1.0 2 times per day active 12/22 Aspirin Oral orally 81.0 mg daily active 12/22 Insulin Detemir Subcuta neous 100 unit/mL subcutan eously 36.0 every evening active 12/22 [place] balamin Oral orally 5000.0 mcg daily active 12/22 [place] 3-DHA-E PA-Fish Oil Oral Liquid 1,600 mg-500 [...] Print Location: Unknown Date/Time Printed: 10/19/2025 17:03 (Lauren/[facility]) Patient: VALERIE PUENTES Sex: Male [...] Selected Billing Code(s): PHLEBOTOMY THERAPEUTIC SEPARATE PROCEDURE (98857) Entered By Barbara Casas RN; Incident to Marcelo Olson MD
--- OUTSIDE RECORDS SUMMARY | 2025-10-19 17:04 | XMS_ITS ---
Author Name Interface, [id number] lity Address [address] [place] [address] Organization [facility] Address [address] [place] [address] Allergies and Adverse Reactions Medication/Group Name Reaction [...] L 4.2 9.1 14.1 High FINAL Marcelo [facility] ([facility]), [address], [address] [place] [address] 06/21 CBC w/ auto diff Cristobal # (ANC) 10*3/u L 1.78 5.38 10.63 High FINAL Marcelo [facility] ([facility]), [address], [address] [place] [address] 06/21 CBC w/ auto diff LY # 10*3/u L 1.32 3.57 2.09 FINAL [facility] ([facility]), [address], [address] [place] [address] 06/21 CBC w/ auto diff MO # 10*3/u L 0.3 0.82 1.34 High FINAL Marcelo [facility] ([facility]), [address], [address] [place] [address] 06/21 CBC w/ auto diff EO # 10*3/u lL 0.04 0.54 0.03 Low FINAL Marcelo [facility] ([facility]), [address], [address] [place] [address] 06/21 CBC w/ auto diff BA # 10*3/u L 0.01 0.08 0.02 FINAL Marcelo [facility] ([facility]), [address], [address] [place] [address] 06/21 CBC w/ auto diff Cristobal % % 34.0 67.9 75.4 High FINAL Marcelo [facility] ([facility]), [address], [address] [place] [address] 06/21 CBC w/ auto diff LY % % 21.8 53.1 14.8 Low FINAL Marcelo [facility] ([facility]), [address], [address] [place] [address] 06/21 CBC w/ auto diff MO % % 5.3 12.2 9.5 FINAL Marcelo [facility] ([facility]), [address], [address] [place] [address] 06/21 CBC w/ auto diff EO % % 0.8 7.0 0.2 Low FINAL Marcelo [facility] ([facility]), [address], [address] [place] [address] 06/21 CBC w/ auto diff BA % % 0.2 1.2 0.1 Low FINAL Marcelo [facility] ([facility]), [address], [address] [place] [address] 06/21 CBC w/ auto diff RBC 10*6/u L 4.63 6.08 4.90 FINAL Marcelo [facility] ([facility]), [address], [address] [place] [address] 06/21 CBC w/ auto diff HGB g/dL 13.7 17.5 16.0 FINAL [facility] ([facility]), [address], [address] [place] [address] 06/21 CBC w/ auto diff HCT % 40.1 51.0 47.5 FINAL [facility] ([facility]), [address], [address] [place] [address] 06/21 CBC w/ auto diff MCV fL 79.0 92.2 96.9 High FINAL [facility] ([facility]), [address], [address] [place], [place] [address] 06/21 CBC w/ auto diff MCH pg 25.7 32.2 32.7 High FINAL [facility] ([facility]), [address], [address] [place] [address] 06/21 CBC w/ auto diff MCHC g/dL 32.3 36.5 33.7 FINAL [facility] ([facility]), [address], [address] [place] [address] 06/21 CBC w/ auto diff RDW-C V, % % 11.6 14.4 14.0 FINAL [facility] ([facility]), [address], [address] [place] [address] 06/21 CBC w/ auto diff PLT 10*3/u L 163.0 337.0 185.0 FINAL [facility] ([facility]), [address], [address] [place], [place] [address] 07/23 Lab Repor t See strike plate attacher d Medications Date Name Route [...] Oral orally 5000.0 mcg daily active 12/22 [facility] 3-DHA-E PA-Fish Oil Oral Liquid 1,600 mg-500 [...]
--- OUTSIDE RECORDS SUMMARY | 2025-10-19 17:04 | XMS_ITS ---
Author Name Interface, [id number] lity Address [address] [place] [address] Organization [facility] Address [address] [place] [address] Allergies and Adverse Reactions Medication/Group Name Reaction [...] 9.1 8.8 FINAL Marcelo Olson B&Whole Blood [facility] ([facility]), [address], [address] [place] [address] 02/15 CBC w/ auto diff Cristobal # (ANC) 10*3/u L 1.78 5.38 4.12 FINAL Marcelo Olson B&Whole Blood [facility] ([facility]), [address] [place] [address] 02/15 CBC w/ auto diff LY # 10*3/u L 1.32 3.57 3.32 FINAL Marcelo Olson B&Whole Blood [facility] ([facility]), [address], [address] [place] [address] 02/15 CBC w/ auto diff MO # 10*3/u L 0.3 0.82 0.96 High FINAL Marcelo Olson B&Whole Blood [facility] ([facility]), [address], [address] [place] [address] 02/15 CBC w/ auto diff EO # 10*3/u lL 0.04 0.54 0.36 FINAL Marcelo Olson B&Whole Blood [facility] ([facility]), [address], [address] [place] [address] 02/15 CBC w/ auto diff BA # 10*3/u L 0.01 0.08 0.04 FINAL Marcelo Olson B&Whole Blood [facility] ([facility]), [address], [address] [place] [address] 02/15 CBC w/ auto diff Cristobal % % 34.0 67.9 46.8 FINAL Marcelo Olson B&Whole Blood [facility] ([facility]), [address], [address] [place] [address] 02/15 CBC w/ auto diff LY % % 21.8 53.1 37.7 FINAL Marcelo Olson B&Whole Blood [facility] (T), [address], [place] [address] 02/15 CBC w/ auto diff MO % % 5.3 12.2 10.9 FINAL Marcelo Olson B&Whole Blood [facility] ([facility]), [address], [address] [facility] [place] [facility] 02/15 CBC w/ auto diff EO % % 0.8 7.0 4.1 FINAL Marcelo Olson B&Whole Blood [facility] ([facility]), [address], [address] [facility] [place] [facility] 02/15 CBC w/ auto diff BA % % 0.2 1.2 0.5 FINAL Marcelo Olson B&Whole Blood [facility] ([facility]), [address], [address] [facility] [place] [facility] 02/15 CBC w/ auto diff RBC 10*6/u L 4.63 6.08 5.33 FINAL Marcelo Olson B&Whole Blood [facility] ([facility]), [address], [address] [facility] [place] [facility] 02/15 CBC w/ auto diff HGB g/dL 13.7 17.5 17.4 FINAL Marcelo Olson B&Whole Blood [facility] ([facility]), [address], [address] [place] [address] 02/15 CBC w/ auto diff HCT % 40.1 51.0 50.4 FINAL Marcelo Olson B&Whole Blood [facility] ([facility]), [address], [address] [facility] [place] [facility] 02/15 CBC w/ auto diff MCV fL 79.0 92.2 94.6 High FINAL Marcelo Olson B&Whole Blood [facility] ([facility]), [address], [address] [facility] [place] [facility] 02/15 CBC w/ auto diff MCH pg 25.7 32.2 32.6 High FINAL Marcelo Olson B&Whole Blood [facility] ([facility]), [address], [address] [facility] [place] [facility] 02/15 CBC w/ auto diff MCHC g/dL 32.3 36.5 34.5 FINAL Marcelo Mahmoods B&Whole Blood [facility] ([facility]), [address], [address] [facility] [place] [address] 02/15 CBC w/ auto diff RDW-C V, % % 11.6 14.4 14.0 FINAL Marcelo Mahmoods B&Whole Blood [facility] ([facility]), [address], [address] [place] [address] 02/15 CBC w/ auto diff PLT 10*3/u L 163.0 337.0 172.0 FINAL Marcelo Mahmoods B&Whole Blood [facility] ([facility]), [address], [address] [place] [address] 05/31 CBC w/ auto diff WBC 10*3/u L 4.2 9.1 10.4 High FINAL Marcelo Herms B&Whole Blood [facility] ([facility]), [address], [address] [place] [address] 05/31 CBC w/ auto diff Cristobal # (ANC) 10*3/u L 1.78 5.38 5.26 FINAL Marcelo Mahmoods B&Whole Blood [facility] ([facility]), [address], [address] [place] [address] 05/31 CBC w/ auto diff LY # 10*3/u L 1.32 3.57 3.84 High FINAL Marcelo Mahmoods B&Whole Blood [facility] ([facility]), [address], [address] [place] [address] 05/31 CBC w/ auto diff MO # 10*3/u L 0.3 0.82 0.94 High FINAL Marcelo Herms B&Whole Blood [facility] ([facility]), [address], [address] [place] [address] 05/31 CBC w/ auto diff EO # 10*3/u lL 0.04 0.54 0.30 FINAL Marcelo Herms B&Whole Blood [facility] ([facility]), [address], [address] [place] [address] 05/31 CBC w/ auto diff BA # 10*3/u L 0.01 0.08 0.03 FINAL Marcelo Herms B&Whole Blood [facility] ([facility]), [address], [address] [place] [address] 05/31 CBC w/ auto diff Cristobal % % 34.0 67.9 50.7 FINAL Marcelo Herms B&Whole Blood [facility] ([facility]), [address], [place] [address] 05/31 CBC w/ auto diff LY % % 21.8 53.1 37.0 FINAL Marcelo Olson B&Whole Blood [facility] ([facility]), [address], [address] [facility] [place] [facility] 05/31 CBC w/ auto diff MO % % 5.3 12.2 9.1 FINAL Marcelo Olson B&Whole Blood [facility] ([facility]), [address], [address] [facility] [place] [facility] 05/31 CBC w/ auto diff EO % % 0.8 7.0 2.9 FINAL Marcelo Olson B&Whole Blood [facility] ([facility]), [address], [address] [place] [address] 05/31 CBC w/ auto diff BA % % 0.2 1.2 0.3 FINAL Marcelo Olson B&Whole Blood [facility] ([facility]), [address], [address] [place] [address] 05/31 CBC w/ auto diff RBC 10*6/u L 4.63 6.08 5.01 FINAL Marcelo Olson B&Whole Blood [facility] ([facility]), [address], [address] [place] [address] 05/31 CBC w/ auto diff HGB g/dL 13.7 17.5 16.4 FINAL Marcelo Olson B&Whole Blood [facility] ([facility]), [address], [address] [place] [address] 05/31 CBC w/ auto diff HCT % 40.1 51.0 47.5 FINAL Marcelo Olson B&Whole Blood [facility] ([facility]), [address], [address] [place] [address] 05/31 CBC w/ auto diff MCV fL 79.0 92.2 94.8 High FINAL Marcelo Mahmoods B&Whole Blood [facility] ([facility]), [address], [address] [place] [address] 05/31 CBC w/ auto diff MCH pg 25.7 32.2 32.7 High FINAL Marcelo Mahmoods B&Whole Blood [facility] ([facility]), [address], [address] [place] [address] 05/31 CBC w/ auto diff MCHC g/dL 32.3 36.5 34.5 FINAL [facility] B&Whole Blood [facility] (T), [address], [address] [place] [address] 05/31 CBC w/ auto diff RDW-C V, % % 11.6 14.4 13.8 FINAL [facility] B&Whole Blood [facility] (T), [address], [address] [place] [address] 05/31 CBC w/ auto diff PLT 10*3/u L 163.0 337.0 161.0 Low FINAL [facility] B&Whole Blood [facility] ([facility]), [address], [address] [place] [address] 06/21 CBC w/ auto diff WBC 10*3/u L 4.2 9.1 14.1 High FINAL [facility] ([facility]), [address], [address] [place] [address] 06/21 CBC w/ auto diff Cristobal # (ANC) 10*3/u L 1.78 5.38 10.63 High FINAL [facility] ([facility]), [address], [address] [place] [address] 06/21 CBC w/ auto diff LY # 10*3/u L 1.32 3.57 2.09 FINAL [facility] ([facility]), [address], [address] [place] [address] 06/21 CBC w/ auto diff MO # 10*3/u L 0.3 0.82 1.34 High FINAL [facility] ([facility]), [address], [address] [place] [address] 06/21 CBC w/ auto diff EO # 10*3/u lL 0.04 0.54 0.03 Low FINAL [facility] ([facility]), [address], [address] [place] [address] 06/21 CBC w/ auto diff BA # 10*3/u L 0.01 0.08 0.02 FINAL [facility] ([facility]), [address], [address] [place] [address] 06/21 CBC w/ auto diff Cristobal % % 34.0 67.9 75.4 High FINAL [facility] ([facility]), [address], [address] [place] [address] 06/21 CBC w/ auto diff LY % % 21.8 53.1 14.8 Low FINAL [facility] ([facility]), [address], [address] [place] [address] 06/21 CBC w/ auto diff MO % % 5.3 12.2 9.5 FINAL [facility] ([facility]), [address], [address] [place] [address] 06/21 CBC w/ auto diff EO % % 0.8 7.0 0.2 Low FINAL [facility] ([facility]), [address], [address] [place] [address] 06/21 CBC w/ auto diff BA % % 0.2 1.2 0.1 Low FINAL [facility] ([facility]), [address], [address] [place] [address] 06/21 CBC w/ auto diff RBC 10*6/u L 4.63 6.08 4.90 FINAL [facility] ([facility]), [address], [address] [place] [address] 06/21 CBC w/ auto diff HGB g/dL 13.7 17.5 16.0 FINAL [facility] ([facility]), [address], [address] [place] [address] 06/21 CBC w/ auto diff HCT % 40.1 51.0 47.5 FINAL [facility] ([facility]), [address], [address] [place] [address] 06/21 CBC w/ auto diff MCV fL 79.0 92.2 96.9 High FINAL [facility] ([facility]), [address], [address] [place] [address] 06/21 CBC w/ auto diff MCH pg 25.7 32.2 32.7 High FINAL [facility] ([facility]), [address], [address] [facility] [address] 06/21 CBC w/ auto diff MCHC g/dL 32.3 36.5 33.7 FINAL [facility] ([facility]), [address], [address] [facility] [address] 06/21 CBC w/ auto diff RDW-C V, % % 11.6 14.4 14.0 FINAL [facility] ([facility]), [address], [address] [facility] [address] 06/21 CBC w/ auto diff PLT 10*3/u L 163.0 337.0 185.0 FINAL [facility] ([facility]), [address], [address] [facility] [address] 07/23 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
--- OUTSIDE RECORDS SUMMARY | 2025-10-19 17:04 | XMS_ITS ---
Author Name Interface, [id number] lity Address [address] [place] [address] Organization [facility] Address [address] [place] [address] Allergies and Adverse Reactions Medication/Group Name Reaction [...] High FINAL Marcelo Olson B&Whole Blood Formerly [facility] ([facility]), [address], [address] [place] [address] 07/20 CBC w/ auto diff Cristobal # (ANC) 10*3/u L 1.78 5.38 4.47 FINAL Marcelo Olson B&Whole Blood Formerly [facility] ([facility]), [address], [address] [facility] [place] [facility] 07/20 CBC w/ auto diff LY # 10*3/u L 1.32 3.57 3.40 FINAL Marcelo Olson B&Whole Blood Formerly [facility] ([facility]), [address], [address] [place], [place] [id number] 07/20 CBC w/ auto diff MO # 10*3/u L 0.3 0.82 0.80 FINAL Marcelo Olson B&Whole Blood Formerly [facility] ([facility]), [address], [address] [facility] [place] [address] 07/20 CBC w/ auto diff EO # 10*3/u lL 0.04 0.54 0.38 FINAL Marcelo Olson B&Whole Blood Formerly [facility] ([facility]), [address], [address] [facility] [place] [address] 07/20 CBC w/ auto diff BA # 10*3/u L 0.01 0.08 0.03 FINAL Marcelo Funez&Whole Blood [facility] (T), [address], [address] [place] [address] 07/20 CBC w/ auto diff Cristobal % % 34.0 67.9 49.3 FINAL Marcelo Herms B&Whole Blood [facility] ([facility]), [address], [address] [place] [address] 07/20 CBC w/ auto diff LY % % 21.8 53.1 37.4 FINAL Marcelo Herms B&Whole Blood [facility] (T), [address], [address] [place] [address] 07/20 CBC w/ auto diff MO % % 5.3 12.2 8.8 FINAL Marcelo Herms B&Whole Blood [facility] (T), [address], [address] [place] [address] 07/20 CBC w/ auto diff EO % % 0.8 7.0 4.2 FINAL Marcelo Herms B&Whole Blood Formerly [facility] (T), [address], [address] [place] [address] 07/20 CBC w/ auto diff BA % % 0.2 1.2 0.3 FINAL Marcelo Herms B&Whole Blood [facility] (T), [address], [address] [place] [address] 07/20 CBC w/ auto diff RBC 10*6/u L 4.63 6.08 5.60 FINAL Marcelo Herms B&Whole Blood Formerly [facility] (T), [address], [address] [place] [address] 07/20 CBC w/ auto diff HGB g/dL 13.7 17.5 18.2 High FINAL Marcelo Herms B&Whole Blood [facility] (T), [address], [address] [place] [address] 07/20 CBC w/ auto diff HCT % 40.1 51.0 52.8 High FINAL Marcelo Herms B&Whole Blood [facility] (T), [address], [address] [place] [address] 07/20 CBC w/ auto diff MCV fL 79.0 92.2 94.3 High FINAL Marcelo Herms B&Whole Blood [facility] (T), [address], [address] [place] [address] 07/20 CBC w/ auto diff MCH pg 25.7 32.2 32.5 High FINAL Marcelo Herms B&Whole Blood Formerly [facility] ([facility]), [address], [address] [place] [address] 07/20 CBC w/ auto diff MCHC g/dL 32.3 36.5 34.5 FINAL Marcelo Herms B&Whole Blood Formerly [facility] ([facility]), [address], [address] [place] [address] 07/20 CBC w/ auto diff RDW-C V, % % 11.6 14.4 12.5 FINAL Marcelo Herms B&Whole Blood Formerly [facility] ([facility]), [address], [address] [place] [address] 07/20 CBC w/ auto diff PLT 10*3/u L 163.0 337.0 160.0 Low FINAL Marcelo Herms B&Whole Blood Formerly [facility] ([facility]), [address], [address] [place] [address] 11/09 CBC w/ auto diff WBC 10*3/u [...] Blood 5 02/12 Lab Repor t See heel sewer d 02/15 CBC w/ auto diff WBC 10*3/u L 4.2 9.1 8.8 FINAL Marcelo Olson B&Whole Blood Formerly [facility] ([facility]), [address], [address] [place] [address] 02/15 CBC w/ auto diff Cristobal # (ANC) 10*3/u L 1.78 5.38 4.12 FINAL Marcelo Mahmoods B&Whole Blood [facility] ([facility]), [address], [address] [facility] [place] [address] 02/15 CBC w/ auto diff LY # 10*3/u L 1.32 3.57 3.32 FINAL Marcelo Mahmoods B&Whole Blood [facility] ([facility]), [address], [address] [facility] [place] [address] 02/15 CBC w/ auto diff MO # 10*3/u L 0.3 0.82 0.96 High FINAL Marcelo Mahmoods B&Whole Blood [facility] ([facility]), [address], [address] [facility] [place] [address] 02/15 CBC w/ auto diff EO # 10*3/u lL 0.04 0.54 0.36 FINAL Marcelo Mahmoods B&Whole Blood [facility] (T), [address], [address] [facility] [place] [address] 02/15 CBC w/ auto diff BA # 10*3/u L 0.01 0.08 0.04 FINAL Marcelo Mahmoods B&Whole Blood [facility] ([facility]), [address], [address] [facility] [place] [address] 02/15 CBC w/ auto diff Cristobal % % 34.0 67.9 46.8 FINAL Marcelo Mahmoods B&Whole Blood [facility] ([facility]), [address], [address] [facility] [place] [facility] 02/15 CBC w/ auto diff LY % % 21.8 53.1 37.7 FINAL Marcelo Mahmoods B&Whole Blood [facility] ([facility]), [address], [address] [facility] [place] [address] 02/15 CBC w/ auto diff MO % % 5.3 12.2 10.9 FINAL Marcelo Mahmoods B&Whole Blood [facility] ([facility]), [address], [address] [facility] [place] [address] 02/15 CBC w/ auto diff EO % % 0.8 7.0 4.1 FINAL Marcelo Mahmoods B&Whole Blood [facility] ([facility]), [address], [address] [facility] [place] [address] 02/15 CBC w/ auto diff BA % % 0.2 1.2 0.5 FINAL Marcelo Mahmoods B&Whole Blood [facility] ([facility]), [address], [address] [facility] [place] [address] 02/15 CBC w/ auto diff RBC 10*6/u L 4.63 6.08 5.33 FINAL Marcelo Olson B&Whole Blood Formerly [facility] ([facility]), [address], [address] [facility] [place] [facility] 02/15 CBC w/ auto diff HGB g/dL 13.7 17.5 17.4 FINAL Marcelo Olson B&Whole Blood Formerly [facility] ([facility]), [address], [address] [facility] [place] [facility] 02/15 CBC w/ auto diff HCT % 40.1 51.0 50.4 FINAL Marcelo Olson B&Whole Blood Formerly [facility] ([facility]), [address], [address] [place] [address] 02/15 CBC w/ auto diff MCV fL 79.0 92.2 94.6 High FINAL Marcelo Mahmoods B&Whole Blood Formerly [facility] ([facility]), [address], [address] [place] [address] 02/15 CBC w/ auto diff MCH pg 25.7 32.2 32.6 High FINAL Marcelo Olson B&Whole Blood Formerly [facility] ([facility]), [address], [address] [place] [address] 02/15 CBC w/ auto diff MCHC g/dL 32.3 36.5 34.5 FINAL Marcelo Olson B&Whole Blood Formerly [facility] ([facility]), [address], [address] [place] [address] 02/15 CBC w/ auto diff RDW-C V, % % 11.6 14.4 14.0 FINAL Marcelo Olson B&Whole Blood Formerly [facility] ([facility]), [address], [address] [facility] [place] [facility] 02/15 CBC w/ auto diff PLT 10*3/u L 163.0 337.0 172.0 FINAL Marcelo Mahmoods B&Whole Blood Formerly [facility] ([facility]), [address], [address] [facility] [place] [address] 05/31 CBC w/ auto diff WBC 10*3/u L 4.2 9.1 10.4 High FINAL Marcelo Mahmodos B&Whole Blood Formerly [facility] ([facility]), [address], [address] [facility] [place] [facility] 05/31 CBC w/ auto diff Cristobal # (ANC) 10*3/u L 1.78 5.38 5.26 FINAL Marcelo Olson B&Whole Blood Formerly [facility] (T), [address], [address] [place] [address] 05/31 CBC w/ auto diff LY # 10*3/u L 1.32 3.57 3.84 High FINAL Marcelo Olson B&Whole Blood Formerly [facility] (T), [address], [address] [place] [address] 05/31 CBC w/ auto diff MO # 10*3/u L 0.3 0.82 0.94 High FINAL Marcelo Olson B&Whole Blood Formerly [facility] ([facility]), [address], [address] [place] [address] 05/31 CBC w/ auto diff EO # 10*3/u lL 0.04 0.54 0.30 FINAL Marcelo Olson B&Whole Blood Formerly [facility] ([facility]), [address], [address] [place] [address] 05/31 CBC w/ auto diff BA # 10*3/u L 0.01 0.08 0.03 FINAL Marcelo Olson B&Whole Blood Formerly [facility] (T), [address], [address] [place] [address] 05/31 CBC w/ auto diff Cristobal % % 34.0 67.9 50.7 FINAL Marcelo Olson B&Whole Blood Formerly [facility] ([facility]), [address], [address] [place] [address] 05/31 CBC w/ auto diff LY % % 21.8 53.1 37.0 FINAL Marcelo Olson B&Whole Blood [facility] (T), [address], [address] [place] [address] 05/31 CBC w/ auto diff MO % % 5.3 12.2 9.1 FINAL Marcelo Mahmoods B&Whole Blood Formerly [facility] ([facility]), [address], [address] [place] [address] 05/31 CBC w/ auto diff EO % % 0.8 7.0 2.9 FINAL Marcelo Mahmoods B&Whole Blood [facility] (T), [address], [address] [place] [address] 05/31 CBC w/ auto diff BA % % 0.2 1.2 0.3 FINAL Marcelo Mahmoods B&Whole Blood Formerly [facility] ([facility]), [address], [address] [place] [address] 05/31 CBC w/ auto diff RBC 10*6/u L 4.63 6.08 5.01 FINAL Marcelo Mahmoods B&Whole Blood Formerly [facility] ([facility]), [address], [address] [place] [address] 05/31 CBC w/ auto diff HGB g/dL 13.7 17.5 16.4 FINAL Marcelo Mahmoods B&Whole Blood Formerly [facility] ([facility]), [address], [address] [place] [address] 05/31 CBC w/ auto diff HCT % 40.1 51.0 47.5 FINAL Marcelo Mahmoods B&Whole Blood Formerly [facility] ([facility]), [address], [address] [place] [address] 05/31 CBC w/ auto diff MCV fL 79.0 92.2 94.8 High FINAL Marcelo Mahmoods B&Whole Blood Formerly [facility] ([facility]), [address], [address] [place] [address] 05/31 CBC w/ auto diff MCH pg 25.7 32.2 32.7 High FINAL [facility] B&Whole Blood Formerly [facility] ([facility]), [address], [address] [place] [address] 05/31 CBC w/ auto diff MCHC g/dL 32.3 36.5 34.5 FINAL Marcelo Mahmoods B&Whole Blood Formerly [facility] ([facility]), [address], [address] [place] [address] 05/31 CBC w/ auto diff RDW-C V, % % 11.6 14.4 13.8 FINAL Marcelo Mahmoods B&Whole Blood Formerly [facility] ([facility]), [address], [address] [place] [address] 05/31 CBC w/ auto diff PLT 10*3/u L 163.0 337.0 161.0 Low FINAL Marcelo Mahmoods B&Whole Blood Formerly [facility] ([facility]), [address], [address] [place] [address] 06/21 CBC w/ auto diff WBC 10*3/u L 4.2 9.1 14.1 High FINAL Marcelo [facility] ([facility]), [address], [address] [place] [address] 06/21 CBC w/ auto diff Cristobal # (ANC) 10*3/u L 1.78 5.38 10.63 High FINAL Marcelo [facility] ([facility]), [address], [address] [place] [address] 06/21 CBC w/ auto diff LY # 10*3/u L 1.32 3.57 2.09 FINAL Marcelo [facility] ([facility]), [address], [address] [place] [address] 06/21 CBC w/ auto diff MO # 10*3/u L 0.3 0.82 1.34 High FINAL Marcelo [facility] ([facility]), [address], [address] [place] [address] 06/21 CBC w/ auto diff EO # 10*3/u lL 0.04 0.54 0.03 Low FINAL Marcelo [facility] ([facility]), [address], [address] [place] [address] 06/21 CBC w/ auto diff BA # 10*3/u L 0.01 0.08 0.02 FINAL Marcelo [facility] ([facility]), [address], [address] [place] [address] 06/21 CBC w/ auto diff Cristobal % % 34.0 67.9 75.4 High FINAL Marcelo [facility] ([facility]), [address], [address] [place] [address] 06/21 CBC w/ auto diff LY % % 21.8 53.1 14.8 Low FINAL Marcelo [facility] ([facility]), [address], [address] [place] [address] 06/21 CBC w/ auto diff MO % % 5.3 12.2 9.5 FINAL Marcelo [facility] ([facility]), [address], [address] [place] [address] 06/21 CBC w/ auto diff EO % % 0.8 7.0 0.2 Low FINAL [facility] ([facility]), [address], [address] [place] [address] 06/21 CBC w/ auto diff BA % % 0.2 1.2 0.1 Low FINAL [facility] ([facility]), [address], [address] [place] [address] 06/21 CBC w/ auto diff RBC 10*6/u L 4.63 6.08 4.90 FINAL [facility] ([facility]), [address], [address] [place] [address] 06/21 CBC w/ auto diff HGB g/dL 13.7 17.5 16.0 FINAL [facility] ([facility]), [address], [address] [place] [address] 06/21 CBC w/ auto diff HCT % 40.1 51.0 47.5 FINAL [facility] ([facility]), [address], [address] [place] [address] 06/21 CBC w/ auto diff MCV fL 79.0 92.2 96.9 High FINAL [facility] ([facility]), [address], [address] [place] [address] 06/21 CBC w/ auto diff MCH pg 25.7 32.2 32.7 High FINAL [facility] ([facility]), [address], [address] [place] [address] 06/21 CBC w/ auto diff MCHC g/dL 32.3 36.5 33.7 FINAL [facility] ([facility]), [address], [address] [place] [address] 06/21 CBC w/ auto diff RDW-C V, % % 11.6 14.4 14.0 FINAL [facility] ([facility]), [address], [address] [place] [address] 06/21 CBC w/ auto diff PLT 10*3/u L 163.0 337.0 185.0 FINAL Marcelo Olson [facility] ([facility]), [address], [address] [employer] [facility] [address] 07/23 Lab Repor t See heel sewer d Medications Date Name Route Dose Frequency Instructions Start Date End Date Status Fill Status Indication 12/22 Sitagli ptin-Me tformin Oral 50 mg-1,00 0 mg orally 1.0 2 times per day active 12/22 Aspirin Oral orally 81.0 mg daily active 12/22 Insulin Detemir Subcuta neous 100 unit/mL subcutan eously 36.0 every evening active 12/22 Cyanoco balamin Oral orally 5000.0 mcg daily active 12/22 [place] 3-DHA-E PA-Fish Oil Oral Liquid 1,600 mg-500 [...] Print Location: Unknown Date/Time Printed: 10/19/2025 17:04 ([facility]) Patient: VALERIE PUENTES Sex: Male : [...] Selected Billing Code(s): PHLEBOTOMY THERAPEUTIC SEPARATE PROCEDURE (22603) Entered By Barbara Casas RN; Incident to Marcelo Olson MD * Nurse Note for: 09-NOV-19 [facility] Nurse Note Print Location: Unknown Date/Time Printed: 10/19/2025 17:04 ([facility]) Patient: VALERIE PUENTES Sex: Male : [...] Selected Billing Code(s): PHLEBOTOMY THERAPEUTIC SEPARATE PROCEDURE (10632) Entered By Ju Gupta RN; Incident to Marcelo Olson MD * Nurse Note for: 20-JUL-19 [facility] Nurse Note Print Location: Unknown Date/Time Printed: 10/19/2025 17:04 ([facility]) Patient: VALERIE PUENTES Sex: Male : [...] Selected Billing Code(s): PHLEBOTOMY THERAPEUTIC SEPARATE PROCEDURE (87823) Entered By Barbara Garcia RN; Incident to Marcelo Olson MD
--- OUTSIDE RECORDS SUMMARY | 2025-10-19 17:04 | XMS_ITS | Clinical Summary ---
Author Organization [facility] Address [address] [place] [address] Care Team Providers Care Fur Remodeler Name Role Phone Cece Keller MD Primary Care Provider [phone] Allergies Active Allergy Reactions Criticality Noted Date Comments Promethazine 07/27/2013 Medications sitagliptan-met formin (JANUMET) 50-1,000 mg PO Tab Take 1 Tab by mouth 2 times daily (with meals). Active meloxicam (MOBIC) 15 mg PO tablet Take 15 mg by mouth daily. Active atorvastatin (LIPITOR) 40 mg PO Tab Take 40 mg by mouth nightly bedtime. Active methocarbamol (ROBAXIN) 750 mg PO tablet Take 750 mg by mouth 4 times daily. Active gabapentin (NEURONTIN) 300 mg PO capsule Take 300 mg by mouth 3 times daily. Active INSULIN DETEMIR (LEVEMIR FLEXPEN SC) by Subcutaneous route. Active Active Problems No known active problems Family History Medical History Relation Name Comments Arthritis Mother Cancer Mother liver Diabetes Mother Heart Disease Mother High Blood Pressure Mother Tuberculosis Paternal Grandfather Relation Name Status Comments Father Alive Mother Paternal Grandfather Social History Tobacco Use Types Packs/Day Years Used Date Smoking Tobacco: Every Day Alcohol Use Standard Drinks/Week Comments No 0 (1 standard drink = 0.6 oz pur e alcohol) Sex and Gender Information Value Date Recorded Sex Assigned at Not on file Legal Sex Male 3:34 PM EDT Gender Identity Not on file Sexual Orientation Not on file Last Filed Vital Signs Vital Sign Reading Time Taken Comments Blood Pressure - - Pulse - - Temperature - - Respiratory Rate - - Oxygen Saturation - - Inhaled Oxygen Concentration - - Weight 83.9 kg (185 lb) 07/27/2013 3:56 PM EDT Height 176.5 cm (5' 9.5 ) 07/27/2013 3:56 PM EDT Body Mass Index 26.93 07/27/2013 3:56 PM EDT Plan of Treatment Health Maintenance Due Date Last Done Comments Cologuard 1958 Colonoscopy 1958 Colorectal Cancer Screening 1958 FIT 1958 Lipid Monitoring 1975 Tetanus Vaccination (Every 10 Years) 1976 Hepatitis C Virus (HCV) Screening 1979 Pneumococcal Vaccine: 50+ Years (1 of 1 - PCV) 008 Zoster-RZV(Shingrix) (1 of 2) 2008 Fall Risk Assessment 2023 Advance Care Planning 11/30/2024 Depression Screening 11/30/2024 COVID-19 Vaccine ( - 2024- season) 2025 Influenza Vaccination (#1) 2025 RSV Vaccines (1 - 1-dose 75+ series) 2033 Insurance Member Subscriber Plan / Payer (Ef fective for All Dates) Name:Oleksandr Fernandez Relation to Subscriber:Self Name:Oleksandr Fernandez Payer ID:[id number] (NAIC) Type:[facility] Address: [facility] [id number] Member Subscriber Plan / Payer (Ef fective for All Dates) Name:Oleksandr Fernadnez Relation to Subscriber:Self Name:Oleksandr Fernandez Micaela Payer ID:[id number] (NAIC) Type:PPO Address: [address] Care Teams Fur Remodeler Relationship Specialty Start Date End Date Cece Keller MD [address] [place] [address] PCP - General Family Medicine 07/21/13
--- OUTSIDE RECORDS SUMMARY | 2025-10-19 17:04 | XMS_ITS ---
Author Name Interface, [id number] lity Address [address] [place] [address] Organization [facility] Address [address] [place] [address] Allergies and Adverse Reactions Medication/Group Name Reaction [...] L 4.2 9.1 14.1 High FINAL Marcelo [facility] ([facility]), [address], [address] [facility] [address] 06/21 CBC w/ auto diff Cristobal # (ANC) 10*3/u L 1.78 5.38 10.63 High FINAL Marcelo [facility] ([facility]), [address], [address] [facility] [address] 06/21 CBC w/ auto diff LY # 10*3/u L 1.32 3.57 2.09 FINAL [facility] ([facility]), [address], [address] [facility] [address] 06/21 CBC w/ auto diff MO # 10*3/u L 0.3 0.82 1.34 High FINAL Marcelo [facility] ([facility]), [address], [address] [place] [address] 06/21 CBC w/ auto diff EO # 10*3/u lL 0.04 0.54 0.03 Low FINAL Marcelo [facility] ([facility]), [address], [address] [place] [address] 06/21 CBC w/ auto diff BA # 10*3/u L 0.01 0.08 0.02 FINAL Marcelo [facility] ([facility]), [address], [address] [place] [address] 06/21 CBC w/ auto diff Cristobal % % 34.0 67.9 75.4 High FINAL Marcelo [facility] ([facility]), [address], [address] [place] [address] 06/21 CBC w/ auto diff LY % % 21.8 53.1 14.8 Low FINAL Marcelo [facility] ([facility]), [address], [address] [place] [address] 06/21 CBC w/ auto diff MO % % 5.3 12.2 9.5 FINAL Marcelo [facility] ([facility]), [address], [address] [place] [address] 06/21 CBC w/ auto diff EO % % 0.8 7.0 0.2 Low FINAL Marcelo [facility] ([facility]), [address], [address] [place] [address] 06/21 CBC w/ auto diff BA % % 0.2 1.2 0.1 Low FINAL Marcelo [facility] ([facility]), [address], [address] [place] [address] 06/21 CBC w/ auto diff RBC 10*6/u L 4.63 6.08 4.90 FINAL Marcelo [facility] ([facility]), [address], [address] [place] [address] 06/21 CBC w/ auto diff HGB g/dL 13.7 17.5 16.0 FINAL [facility] ([facility]), [address], [address] [place] [address] 06/21 CBC w/ auto diff HCT % 40.1 51.0 47.5 FINAL [facility] ([facility]), [address], [address] [place] [address] 06/21 CBC w/ auto diff MCV fL 79.0 92.2 96.9 High FINAL [facility] ([facility]), [address], [address] [place], [place] [address] 06/21 CBC w/ auto diff MCH pg 25.7 32.2 32.7 High FINAL [facility] ([facility]), [address], [address] [place] [address] 06/21 CBC w/ auto diff MCHC g/dL 32.3 36.5 33.7 FINAL [facility] ([facility]), [address], [address] [facility] [address] 06/21 CBC w/ auto diff RDW-C V, % % 11.6 14.4 14.0 FINAL [facility] ([facility]), [address], [address] 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
--- OUTSIDE RECORDS SUMMARY | 2025-10-19 17:05 | XMS_ITS ---
Author Name Interface, [id number] lity Address [address] [place] [address] Organization [facility] Address [address] [place] [address] Allergies and Adverse Reactions Medication/Group Name Reaction [...] 9.1 8.8 FINAL Marcelo Olson [facility], located within [facility] ([facility]), [address], [address] [place] [address] 02/15 CBC w/ auto diff Cristobal # (ANC) 10*3/u L 1.78 5.38 4.12 FINAL Marcleo Olson [facility], located within [facility] ([facility]), [address], [address] [place] [address] 02/15 CBC w/ auto diff LY # 10*3/u L 1.32 3.57 3.32 FINAL Marcelo Olson [facility], located within [facility] ([facility]), [address], [address] [place] [address] 02/15 CBC w/ auto diff MO # 10*3/u L 0.3 0.82 0.96 High FINAL Marcelo Olson [facility], located within [facility] ([facility]), [address], [address] [place] [address] 02/15 CBC w/ auto diff EO # 10*3/u lL 0.04 0.54 0.36 FINAL Marcelo Olson [facility]Whole [facility], located within [facility] ([facility]), [address], [address] [place] [address] 02/15 CBC w/ auto diff BA # 10*3/u L 0.01 0.08 0.04 FINAL Marcelo Olson [facility]Whole [facility], located within [facility] ([facility]), [address], [address] [place] [address] 02/15 CBC w/ auto diff Cristobal % % 34.0 67.9 46.8 FINAL Marcelo Olson [facility]Whole Blood [facility], located within [facility] ([facility]), [address], [address] [place] [address] 02/15 CBC w/ auto diff LY % % 21.8 53.1 37.7 FINAL Marcelo Mahmoods B&Whole Blood [facility] ([facility]), [address], Suite [facility] [place] [address] 02/15 CBC w/ auto diff MO % % 5.3 12.2 10.9 FINAL Marcelo Mahmoods B&Whole Blood [facility] ([facility]), [address], Suite [facility] [place] [place] [address] 02/15 CBC w/ auto diff EO % % 0.8 7.0 4.1 FINAL Marcelo Olson B&Whole Blood [facility] ([facility]), [address], [address] [facility] [place] [facility] 02/15 CBC w/ auto diff BA % % 0.2 1.2 0.5 FINAL Marcelo Mahmoods B[facility]Whole Blood [facility], located within [facility] (T), [address], [address] [facility] [place] [facility] 02/15 CBC w/ auto diff RBC 10*6/u L 4.63 6.08 5.33 FINAL Marcelo Mahmoods [facility]Whole Blood [facility], located within [facility] ([facility]), [address], [address] [facility] [place] [facility] 02/15 CBC w/ auto diff HGB g/dL 13.7 17.5 17.4 FINAL Marcelo Olson B&Whole Blood [facility] ([facility]), [address], [address] [facility] [place] [facility] 02/15 CBC w/ auto diff HCT % 40.1 51.0 50.4 FINAL Marcelo Mahmoods B[facility]Whole Blood [facility], located within [facility] ([facility]), [address], [address] [facility] [place] [facility] 02/15 CBC w/ auto diff MCV fL 79.0 92.2 94.6 High FINAL Marcelo Mahmoods B[facility]Whole Blood [facility] ([facility]), [address], [address] [facility] [place] [address] 02/15 CBC w/ auto diff MCH pg 25.7 32.2 32.6 High FINAL Marcelo Mahmoods B&Whole Blood [facility] ([facility]), [address], [address] [facility] [place] [address] 02/15 CBC w/ auto diff MCHC g/dL 32.3 36.5 34.5 FINAL Marcelo Mahmoods B[facility]Whole Blood [facility] ([facility]), [address], [address] [place] [address] 02/15 CBC w/ auto diff RDW-C V, % % 11.6 14.4 14.0 FINAL Marcelo Mahmoods B[facility]Whole Blood [facility], located within [facility] ([facility]), [address], [address] [place] [address] 02/15 CBC w/ auto diff PLT 10*3/u L 163.0 337.0 172.0 FINAL Marcelo Mahmoods B[facility]Whole Blood [facility], located within [facility] ([facility]), [address], [address] [place] [address] 05/31 CBC w/ auto diff WBC 10*3/u L 4.2 9.1 10.4 High FINAL Marcelo Mahmoods [facility]Whole Blood [facility], located within [facility] ([facility]), [address], [address] [place] [address] 05/31 CBC w/ auto diff Cristobal # (ANC) 10*3/u L 1.78 5.38 5.26 FINAL Marcelo Mahmoods B[facility]Whole Blood [facility], located within [facility] ([facility]), [address], [address] [place] [address] 05/31 CBC w/ auto diff LY # 10*3/u L 1.32 3.57 3.84 High FINAL Marcelo Mahmoods [facility]Whole [facility], located within [facility] ([facility]), [address], [address] [place] [address] 05/31 CBC w/ auto diff MO # 10*3/u L 0.3 0.82 0.94 High FINAL Marcelo Mahmoods B[facility]Whole Blood [facility], located within [facility] ([facility]), [address], [address] [place] [address] 05/31 CBC w/ auto diff EO # 10*3/u lL 0.04 0.54 0.30 FINAL Marcelo Mahmoods B[facility]Whole Blood [facility], located within [facility] ([facility]), [address], [address] [place] [address] 05/31 CBC w/ auto diff BA # 10*3/u L 0.01 0.08 0.03 FINAL Marcelo Herms B&Whole Blood [facility] ([facility]), [address], [address] [place] [address] 05/31 CBC w/ auto diff Cristobal % % 34.0 67.9 50.7 FINAL Marcelo Herms B&Whole Blood [facility] (T), [address], [address] [facility] [place] [facility] 05/31 CBC w/ auto diff LY % % 21.8 53.1 37.0 FINAL Marcelo Olson B[facility]Whole Blood [facility], located within [facility] (T), [address], [address] [place] [address] 05/31 CBC w/ auto diff MO % % 5.3 12.2 9.1 FINAL Marcelo Olson B[facility]Whole Blood [facility], located within [facility] ([facility]), [address], [address] [place] [address] 05/31 CBC w/ auto diff EO % % 0.8 7.0 2.9 FINAL Marcelo Olson B[facility]Whole Blood [facility], located within [facility] ([facility]), [address], [address] [place] [address] 05/31 CBC w/ auto diff BA % % 0.2 1.2 0.3 FINAL Marcelo Olson B[facility]Whole Blood [facility], located within [facility] ([facility]), [address], [address] [place] [address] 05/31 CBC w/ auto diff RBC 10*6/u L 4.63 6.08 5.01 FINAL Marcelo Olson B&Whole Blood [facility], located within [facility] ([facility]), [address], [address] [place] [address] 05/31 CBC w/ auto diff HGB g/dL 13.7 17.5 16.4 FINAL Marcelo Olson B[facility]Whole Blood [facility], located within [facility] ([facility]), [address], [address] [place] [address] 05/31 CBC w/ auto diff HCT % 40.1 51.0 47.5 FINAL Marcelo Olson B[facility]Whole Blood [facility], located within [facility] ([facility]), [address], [address] [place] [address] 05/31 CBC w/ auto diff MCV fL 79.0 92.2 94.8 High FINAL Marcelo Olson B[facility]Whole Blood [facility], located within [facility] ([facility]), [address], [address] [place] [address] 05/31 CBC w/ auto diff MCH pg 25.7 32.2 32.7 High FINAL Marcelo Olson B[facility]Whole Blood [facility], located within [facility] ([facility]), [address], [address] [place] [address] 05/31 CBC w/ auto diff MCHC g/dL 32.3 36.5 34.5 FINAL Marcelo [facility] B&Whole Blood [facility] ([facility]), [address], [address] [place] [address] 05/31 CBC w/ auto diff RDW-C V, % % 11.6 14.4 13.8 FINAL Marcelo [facility] B[facility]Whole Blood [facility], located within [facility] ([facility]), [address], [address] [place] [address] 05/31 CBC w/ auto diff PLT 10*3/u L 163.0 337.0 161.0 Low FINAL [facility], located within [facility] ([facility]), [address], [address] [place] [address] 06/21 CBC w/ auto diff WBC 10*3/u L 4.2 9.1 14.1 High FINAL [facility] (T), [address], [address] [place] [address] 06/21 CBC w/ auto diff Cristobal # (ANC) 10*3/u L 1.78 5.38 10.63 High FINAL [facility] (T), [address], [address] [place] [address] 06/21 CBC w/ auto diff LY # 10*3/u L 1.32 3.57 2.09 FINAL [facility] (T), [address], [address] [place], [place] [id number] 06/21 CBC w/ auto diff MO # 10*3/u L 0.3 0.82 1.34 High FINAL [facility] ([facility]), [address], [address] [place], [place] [id number] 06/21 CBC w/ auto diff EO # 10*3/u lL 0.04 0.54 0.03 Low FINAL [facility] ([facility]), [address], [address] [facility] [address] 06/21 CBC w/ auto diff BA # 10*3/u L 0.01 0.08 0.02 FINAL [facility] ([facility]), [address], [address] [place] [address] 06/21 CBC w/ auto diff Cristobal % % 34.0 67.9 75.4 High FINAL Marcelo [facility] ([facility]), [address], [address] [place] [address] 06/21 CBC w/ auto diff LY % % 21.8 53.1 14.8 Low FINAL Marcelo [facility] ([facility]), [address], [address] [place] [address] 06/21 CBC w/ auto diff MO % % 5.3 12.2 9.5 FINAL Marcelo [facility] ([facility]), [address], [address] [place] [address] 06/21 CBC w/ auto diff EO % % 0.8 7.0 0.2 Low FINAL Marcelo [facility] ([facility]), [address], [address] [place] [address] 06/21 CBC w/ auto diff BA % % 0.2 1.2 0.1 Low FINAL Marcelo [facility] ([facility]), [address], [address] [place] [address] 06/21 CBC w/ auto diff RBC 10*6/u L 4.63 6.08 4.90 FINAL Marcelo [facility] ([facility]), [address], [address] [place] [address] 06/21 CBC w/ auto diff HGB g/dL 13.7 17.5 16.0 FINAL Marcelo [facility] ([facility]), [address], [address] [place] [address] 06/21 CBC w/ auto diff HCT % 40.1 51.0 47.5 FINAL Marcelo [facility] ([facility]), [address], [address] [place] [address] 06/21 CBC w/ auto diff MCV fL 79.0 92.2 96.9 High FINAL Marcelo [facility] ([facility]), [address], [address] [place] [address] 06/21 CBC w/ auto diff MCH pg 25.7 32.2 32.7 High FINAL [facility] ([facility]), [address], [address] [facility] [address] 06/21 CBC w/ auto diff MCHC g/dL 32.3 36.5 33.7 FINAL [facility] (T), [address], [address] [facility] [address] 06/21 CBC w/ auto diff RDW-C V, % % 11.6 14.4 14.0 FINAL [facility] (T), [address], [address] [facility] [address] 06/21 CBC w/ auto diff PLT 10*3/u L 163.0 337.0 185.0 FINAL [facility] ([facility]), [address], [address] [facility] [address] 07/23 Lab Repor t See senior treasury analyst d Medications Date Name Route Dose [...] Oral orally 5000.0 mcg daily active 12/22 [place] 3-DHA-E PA-Fish Oil Oral Liquid 1,600 mg-500 [...] Note Print Location: Unknown Date/Time Printed: 10/19/2025 17:05 ([facility]) Patient: VALERIE PUENTES Sex: Male [...] Selected Billing Code(s): PHLEBOTOMY THERAPEUTIC SEPARATE PROCEDURE (73517) Entered By Barbara Casas RN; Incident to Marcelo Olson MD
--- OUTSIDE RECORDS SUMMARY | 2025-10-19 17:05 | XMS_ITS ---
Author Name Interface, [id number] lity Address [address] [place] [address] Organization [facility] Address [address] [place] [address] Allergies and Adverse Reactions Medication/Group Name Reaction [...] L 4.2 9.1 14.1 High FINAL Marcelo [facility] ([facility]), [address], [address] [facility] [address] 06/21 CBC w/ auto diff Cristobal # (ANC) 10*3/u L 1.78 5.38 10.63 High FINAL Marcelo [facility] ([facility]), [address], [address] [facility] [address] 06/21 CBC w/ auto diff LY # 10*3/u L 1.32 3.57 2.09 FINAL [facility] ([facility]), [address], [address] [facility] [address] 06/21 CBC w/ auto diff MO # 10*3/u L 0.3 0.82 1.34 High FINAL Marcelo [facility] ([facility]), [address], [address] [place] [address] 06/21 CBC w/ auto diff EO # 10*3/u lL 0.04 0.54 0.03 Low FINAL Marcelo [facility] ([facility]), [address], [address] [place] [address] 06/21 CBC w/ auto diff BA # 10*3/u L 0.01 0.08 0.02 FINAL Marcelo [facility] ([facility]), [address], [address] [place] [address] 06/21 CBC w/ auto diff Cristobal % % 34.0 67.9 75.4 High FINAL Marcelo [facility] ([facility]), [address], [address] [place] [address] 06/21 CBC w/ auto diff LY % % 21.8 53.1 14.8 Low FINAL Marcelo [facility] ([facility]), [address], [address] [place] [address] 06/21 CBC w/ auto diff MO % % 5.3 12.2 9.5 FINAL Marcelo [facility] ([facility]), [address], [address] [place] [address] 06/21 CBC w/ auto diff EO % % 0.8 7.0 0.2 Low FINAL Marcelo [facility] ([facility]), [address], [address] [place] [address] 06/21 CBC w/ auto diff BA % % 0.2 1.2 0.1 Low FINAL Marcelo [facility] ([facility]), [address], [address] [place] [address] 06/21 CBC w/ auto diff RBC 10*6/u L 4.63 6.08 4.90 FINAL Marcelo [facility] ([facility]), [address], [address] [place] [address] 06/21 CBC w/ auto diff HGB g/dL 13.7 17.5 16.0 FINAL [facility] ([facility]), [address], [address] [place] [address] 06/21 CBC w/ auto diff HCT % 40.1 51.0 47.5 FINAL [facility] ([facility]), [address], [address] [place] [address] 06/21 CBC w/ auto diff MCV fL 79.0 92.2 96.9 High FINAL [facility] ([facility]), [address], [address] [place], [place] [address] 06/21 CBC w/ auto diff MCH pg 25.7 32.2 32.7 High FINAL [facility] ([facility]), [address], [address] [place] [address] 06/21 CBC w/ auto diff MCHC g/dL 32.3 36.5 33.7 FINAL [facility] ([facility]), [address], [address] [facility] [address] 06/21 CBC w/ auto diff RDW-C V, % % 11.6 14.4 14.0 FINAL [facility] ([facility]), [address], [address] [facility] [address] 06/21 CBC w/ auto diff PLT 10*3/u L 163.0 337.0 185.0 FINAL [facility] ([facility]), [address], [address] [place], [place] [address] 07/23 Lab Repor t See gas flow regulator d Medications Date Name Route Dose Frequency Instructions Start Date End Date Status Fill Status Indication 12/22 Sitagli ptin-Me tformin Oral 50 mg-1,00 0 mg orally 1.0 2 times per day active 12/22 Aspirin Oral orally 81.0 mg daily active 12/22 Insulin Detemir Subcuta neous 100 unit/mL subcutan eously 36.0 every evening active 12/22 [place] balamin Oral orally 5000.0 mcg daily active 12/22 [place] 3-DHA-E PA-Fish Oil Oral Liquid 1,600 mg-500 [...]
--- OUTSIDE RECORDS SUMMARY | 2025-10-19 17:05 | XMS_ITS ---
Author Name Interface, [id number] lity Address [address] [place] [address] Organization [facility] Address [address] [place] [address] Allergies and Adverse Reactions Medication/Group Name Reaction [...] FINAL Marcelo [facility] ([facility]), [address], [address] [facility] [address] 06/21 CBC w/ auto diff Cristobal # (ANC) 10*3/u L 1.78 5.38 10.63 High FINAL Marcelo [facility] ([facility]), [address], [address] [facility] [address] 06/21 CBC w/ auto diff LY # 10*3/u L 1.32 3.57 2.09 FINAL [facility] ([facility]), [address], [address] [facility] [address] 06/21 CBC w/ auto diff MO # 10*3/u L 0.3 0.82 1.34 High FINAL Marcelo [facility] ([facility]), [address], [address] [place] [address] 06/21 CBC w/ auto diff EO # 10*3/u lL 0.04 0.54 0.03 Low FINAL Marcelo [facility] ([facility]), [address], [address] [place] [address] 06/21 CBC w/ auto diff BA # 10*3/u L 0.01 0.08 0.02 FINAL Marcelo [facility] ([facility]), [address], [address] [place] [address] 06/21 CBC w/ auto diff Cristobal % % 34.0 67.9 75.4 High FINAL Marcelo [facility] ([facility]), [address], [address] [place] [address] 06/21 CBC w/ auto diff LY % % 21.8 53.1 14.8 Low FINAL Marcelo [facility] ([facility]), [address], [address] [place] [address] 06/21 CBC w/ auto diff MO % % 5.3 12.2 9.5 FINAL Marcelo [facility] ([facility]), [address], [address] [place] [address] 06/21 CBC w/ auto diff EO % % 0.8 7.0 0.2 Low FINAL Marcelo [facility] ([facility]), [address], [address] [place] [address] 06/21 CBC w/ auto diff BA % % 0.2 1.2 0.1 Low FINAL Marcelo [facility] ([facility]), [address], [address] [place] [address] 06/21 CBC w/ auto diff RBC 10*6/u L 4.63 6.08 4.90 FINAL Marcelo [facility] ([facility]), [address], [address] [place] [address] 06/21 CBC w/ auto diff HGB g/dL 13.7 17.5 16.0 FINAL [facility] ([facility]), [address], [address] [place] [address] 06/21 CBC w/ auto diff HCT % 40.1 51.0 47.5 FINAL [facility] ([facility]), [address], [address] [place] [address] 06/21 CBC w/ auto diff MCV fL 79.0 92.2 96.9 High FINAL [facility] ([facility]), [address], [address] [place], [place] [address] 06/21 CBC w/ auto diff MCH pg 25.7 32.2 32.7 High FINAL [facility] ([facility]), [address], [address] [place] [address] 06/21 CBC w/ auto diff MCHC g/dL 32.3 36.5 33.7 FINAL [facility] ([facility]), [address], [address] [facility] [address] 06/21 CBC w/ auto diff RDW-C V, % % 11.6 14.4 14.0 FINAL [facility] ([facility]), [address], [address] [facility] [address] 06/21 CBC w/ auto diff PLT 10*3/u L 163.0 337.0 185.0 FINAL [facility] ([facility]), [address], [address] [place], [place] [address] 07/23 Lab Repor t See route deliverer d Medications Date Name Route Dose Frequency Instructions Start Date End Date Status Fill Status Indication 12/22 Sitagli ptin-Me tformin Oral 50 mg-1,00 0 mg orally 1.0 2 times per day active 12/22 Aspirin Oral orally 81.0 mg daily active 12/22 Insulin Detemir Subcuta neous 100 unit/mL subcutan eously 36.0 every evening active 12/22 [place] balamin Oral orally 5000.0 mcg daily active 12/22 [place] 3-DHA-E PA-Fish Oil Oral Liquid 1,600 mg-500 [...]
--- OUTSIDE RECORDS SUMMARY | 2025-10-19 17:05 | XMS_ITS ---
Author Name Interface, [id number] lity Address [address] [place] [address] Organization [facility] Address [address] [place] [address] Allergies and Adverse Reactions Medication/Group Name Reaction [...] Blood [facility] ([facility]), [address], [address] [place] [address] 02/15 CBC w/ auto diff Cristobal # (ANC) 10*3/u L 1.78 5.38 4.12 FINAL Marcelo Olson B&Whole Blood [facility] ([facility]), [address], [address] [place] [address] 02/15 CBC w/ auto diff LY # 10*3/u L 1.32 3.57 3.32 FINAL Marcelo Olson B&Whole Blood [facility] ([facility]), [address], [address] [place] [address] 02/15 CBC w/ auto diff MO # 10*3/u L 0.3 0.82 0.96 High FINAL Marcelo Olson B&Whole Blood [facility] ([facility]), [address], [address] [place] [address] 02/15 CBC w/ auto diff EO # 10*3/u lL 0.04 0.54 0.36 FINAL Marcelo Olson B&Whole Blood [facility] ([facility]), [address], [address] [place] [address] 02/15 CBC w/ auto diff BA # 10*3/u L 0.01 0.08 0.04 FINAL Marcelo Olson B&Whole Blood [facility] ([facility]), [address], [address] [place] [address] 02/15 CBC w/ auto diff Cristobal % % 34.0 67.9 46.8 FINAL Marcelo Olson B&Whole Blood [facility] ([facility]), [address], [address] [place] [address] 02/15 CBC w/ auto diff LY % % 21.8 53.1 37.7 FINAL Marcelo Olson B&Whole Blood [facility] (T), [address], [place] [facility] [place] [address] 02/15 CBC w/ auto diff MO % % 5.3 12.2 10.9 FINAL Marcelo Olson B&Whole Blood [facility] (T), [address], Suite [facility] [place] [facility] 02/15 CBC w/ auto diff EO % % 0.8 7.0 4.1 FINAL Marcelo Olson B&Whole Blood [facility] (T), [address], [address] [facility] [place] [facility] 02/15 CBC w/ auto diff BA % % 0.2 1.2 0.5 FINAL Marcelo Olson B&Whole Blood [facility] ([facility]), [address], [address] [facility] [place] [facility] 02/15 CBC w/ auto diff RBC 10*6/u L 4.63 6.08 5.33 FINAL Marcelo Olson B&Whole Blood [facility] ([facility]), [address], [address] [facility] [place] [facility] 02/15 CBC w/ auto diff HGB g/dL 13.7 17.5 17.4 FINAL Marcelo Olson B&Whole Blood [facility] (T), [address], [address] [place] [address] 02/15 CBC w/ auto diff HCT % 40.1 51.0 50.4 FINAL Marcelo Olson B&Whole Blood [facility] ([facility]), [address], [address] [facility] [place] [facility] 02/15 CBC w/ auto diff MCV fL 79.0 92.2 94.6 High FINAL Marcelo Olson B&Whole Blood [facility] ([facility]), [address], [address] [facility] [place] [facility] 02/15 CBC w/ auto diff MCH pg 25.7 32.2 32.6 High FINAL Marcelo Olson B&Whole Blood [facility] (T), [address], [address] [facility] [place] [facility] 02/15 CBC w/ auto diff MCHC g/dL 32.3 36.5 34.5 FINAL Marcelo Mahmoods B&Whole Blood [facility] (T), [address], [address] [facility] [place] [address] 02/15 CBC w/ auto diff RDW-C V, % % 11.6 14.4 14.0 FINAL Marcelo Mahmoods B&Whole Blood [facility] (T), [address], [address] [place] [address] 02/15 CBC w/ auto diff PLT 10*3/u L 163.0 337.0 172.0 FINAL Marcelo Mahmoods B&Whole Blood [facility] ([facility]), [address], [address] [place] [address] 05/31 CBC w/ auto diff WBC 10*3/u L 4.2 9.1 10.4 High FINAL Marcelo Herms B&Whole Blood [facility] (T), [address], [address] [place] [address] 05/31 CBC w/ auto diff Cristobal # (ANC) 10*3/u L 1.78 5.38 5.26 FINAL Marcelo Mahmoods B&Whole Blood [facility] ([facility]), [address], [address] [place] [address] 05/31 CBC w/ auto diff LY # 10*3/u L 1.32 3.57 3.84 High FINAL Marcelo Mahmoods B&Whole Blood [facility] (T), [address], [address] [place] [address] 05/31 CBC w/ auto diff MO # 10*3/u L 0.3 0.82 0.94 High FINAL Marcelo Herms B&Whole Blood [facility] (T), [address], [address] [place] [address] 05/31 CBC w/ auto diff EO # 10*3/u lL 0.04 0.54 0.30 FINAL Marcelo Herms B&Whole Blood [facility] (T), [address], [address] [place] [address] 05/31 CBC w/ auto diff BA # 10*3/u L 0.01 0.08 0.03 FINAL Marcelo Herms B&Whole Blood [facility] (T), [address], [address] [place] [address] 05/31 CBC w/ auto diff Cristobal % % 34.0 67.9 50.7 FINAL Marcelo Herms B&Whole Blood [facility] ([facility]), [address], [place] [facility] [place] [address] 05/31 CBC w/ auto diff LY % % 21.8 53.1 37.0 FINAL Marcelo Olson B&Whole Blood [facility] ([facility]), [address], [address] [facility] [place] [facility] 05/31 CBC w/ auto diff MO % % 5.3 12.2 9.1 FINAL Marcelo Olson B&Whole Blood [facility] ([facility]), [address], [address] [facility] [place] [facility] 05/31 CBC w/ auto diff EO % % 0.8 7.0 2.9 FINAL Marcelo Olson B&Whole Blood [facility] ([facility]), [address], [address] [place] [address] 05/31 CBC w/ auto diff BA % % 0.2 1.2 0.3 FINAL Marcelo Olson B&Whole Blood [facility] (T), [address], [address] [place] [address] 05/31 CBC w/ auto diff RBC 10*6/u L 4.63 6.08 5.01 FINAL Marcelo Olson B&Whole Blood [facility] (T), [address], [address] [place] [address] 05/31 CBC w/ auto diff HGB g/dL 13.7 17.5 16.4 FINAL Marcelo Olson B&Whole Blood [facility] ([facility]), [address], [address] [place] [address] 05/31 CBC w/ auto diff HCT % 40.1 51.0 47.5 FINAL Marcelo Olson B&Whole Blood [facility] ([facility]), [address], [address] [place] [address] 05/31 CBC w/ auto diff MCV fL 79.0 92.2 94.8 High FINAL Marcelo Mahmoods B&Whole Blood [facility] ([facility]), [address], [address] [place] [address] 05/31 CBC w/ auto diff MCH pg 25.7 32.2 32.7 High FINAL Marcelo Mahmoods B&Whole Blood [facility] ([facility]), [address], [address] [place] [address] 05/31 CBC w/ auto diff MCHC g/dL 32.3 36.5 34.5 FINAL [facility] B&Whole Blood [facility] (T), [address], [address] [place] [address] 05/31 CBC w/ auto diff RDW-C V, % % 11.6 14.4 13.8 FINAL [facility] B&Whole Blood [facility] (T), [address], [address] [place] [address] 05/31 CBC w/ auto diff PLT 10*3/u L 163.0 337.0 161.0 Low FINAL [facility] B&Whole Blood [facility] ([facility]), [address], [address] [place] [address] 06/21 CBC w/ auto diff WBC 10*3/u L 4.2 9.1 14.1 High FINAL [facility] ([facility]), [address], [address] [place] [address] 06/21 CBC w/ auto diff Cristobal # (ANC) 10*3/u L 1.78 5.38 10.63 High FINAL [facility] ([facility]), [address], [address] [place] [address] 06/21 CBC w/ auto diff LY # 10*3/u L 1.32 3.57 2.09 FINAL [facility] ([facility]), [address], [address] [place] [address] 06/21 CBC w/ auto diff MO # 10*3/u L 0.3 0.82 1.34 High FINAL [facility] ([facility]), [address], [address] [place] [address] 06/21 CBC w/ auto diff EO # 10*3/u lL 0.04 0.54 0.03 Low FINAL [facility] ([facility]), [address], [address] [place] [address] 06/21 CBC w/ auto diff BA # 10*3/u L 0.01 0.08 0.02 FINAL [facility] ([facility]), [address], [address] [place] [address] 06/21 CBC w/ auto diff Cristobal % % 34.0 67.9 75.4 High FINAL [facility] ([facility]), [address], [address] [place] [address] 06/21 CBC w/ auto diff LY % % 21.8 53.1 14.8 Low FINAL [facility] ([facility]), [address], [address] [place] [address] 06/21 CBC w/ auto diff MO % % 5.3 12.2 9.5 FINAL [facility] ([facility]), [address], [address] [place] [address] 06/21 CBC w/ auto diff EO % % 0.8 7.0 0.2 Low FINAL [facility] ([facility]), [address], [address] [place] [address] 06/21 CBC w/ auto diff BA % % 0.2 1.2 0.1 Low FINAL [facility] ([facility]), [address], [address] [place] [address] 06/21 CBC w/ auto diff RBC 10*6/u L 4.63 6.08 4.90 FINAL [facility] ([facility]), [address], [address] [place] [address] 06/21 CBC w/ auto diff HGB g/dL 13.7 17.5 16.0 FINAL [facility] ([facility]), [address], [address] [place] [address] 06/21 CBC w/ auto diff HCT % 40.1 51.0 47.5 FINAL [facility] ([facility]), [address], [address] [place] [address] 06/21 CBC w/ auto diff MCV fL 79.0 92.2 96.9 High FINAL [facility] ([facility]), [address], [address] [place] [address] 06/21 CBC w/ auto diff MCH pg 25.7 32.2 32.7 High FINAL [facility] ([facility]), [address], [address] [facility] [address] 06/21 CBC w/ auto diff MCHC g/dL 32.3 36.5 33.7 FINAL [facility] ([facility]), [address], [address] [facility] [address] 06/21 CBC w/ auto diff RDW-C V, % % 11.6 14.4 14.0 FINAL [facility] ([facility]), [address], [address] [facility] [address] 06/21 CBC w/ auto diff PLT 10*3/u L 163.0 337.0 185.0 FINAL [facility] ([facility]), [address], [address] [facility] [address] 07/23 Lab Repor t See topology professor d Medications Date Name Route Dose [...] Oral orally 5000.0 mcg daily active 12/22 [place] 3-DHA-E PA-Fish Oil Oral Liquid 1,600 mg-500 [...] Print Location: Unknown Date/Time Printed: 10/19/2025 17:05 ([facility]) Patient: VALERIE PUENTES Sex: Male : [...] Selected Billing Code(s): PHLEBOTOMY THERAPEUTIC SEPARATE PROCEDURE (47724) Entered By Barbara Casas RN; Incident to Marcelo Olson MD
--- OUTSIDE RECORDS SUMMARY | 2025-10-19 17:05 | XMS_ITS ---
Author Name Interface, [id number] lity Address [address] [place] [address] Organization [facility] Address [address] [place] [address] Allergies and Adverse Reactions Medication/Group Name Reaction [...] Olson B&Whole Blood [facility] ([facility]), [address], [address] [place] [address] 07/20 CBC w/ auto diff Cristobal # (ANC) 10*3/u L 1.78 5.38 4.47 FINAL Marcelo Olson B&Whole Blood [facility] ([facility]), [address], Suite [facility] [place] [facility] 07/20 CBC w/ auto diff LY # 10*3/u L 1.32 3.57 3.40 FINAL Marcelo Olson B&Whole Blood [facility] ([facility]), [address], [address] [place], [place] [id number] 07/20 CBC w/ auto diff MO # 10*3/u L 0.3 0.82 0.80 FINAL Marcelo Olson B&Whole Blood [facility] ([facility]), [address], [address] [facility] [place] [address] 07/20 CBC w/ auto diff EO # 10*3/u lL 0.04 0.54 0.38 FINAL Marcelo Olson B&Whole Blood [facility] ([facility]), [address], [address] [facility] [place] [address] 07/20 CBC w/ auto diff BA # 10*3/u L 0.01 0.08 0.03 FINAL Marcelo Funez&Whole Blood [facility] ([facility]), [address], [address] [place] [address] 07/20 CBC w/ auto diff Cristobal % % 34.0 67.9 49.3 FINAL Marcelo Herms B&Whole Blood [facility] ([facility]), [address], [address] [place] [address] 07/20 CBC w/ auto diff LY % % 21.8 53.1 37.4 FINAL Marcelo Herms B&Whole Blood [facility] ([facility]), [address], [address] [place] [address] 07/20 CBC w/ auto diff MO % % 5.3 12.2 8.8 FINAL Marcelo Herms B&Whole Blood [facility] ([facility]), [address], [address] [place] [address] 07/20 CBC w/ auto diff EO % % 0.8 7.0 4.2 FINAL Marcelo Herms B&Whole Blood [facility] ([facility]), [address], [address] [place] [address] 07/20 CBC w/ auto diff BA % % 0.2 1.2 0.3 FINAL Marcelo Herms B&Whole Blood [facility] ([facility]), [address], [address] [place] [address] 07/20 CBC w/ auto diff RBC 10*6/u L 4.63 6.08 5.60 FINAL Marcelo Herms B&Whole Blood [facility] ([facility]), [address], [address] [place] [address] 07/20 CBC w/ auto diff HGB g/dL 13.7 17.5 18.2 High FINAL Marcelo Herms B&Whole Blood [facility] ([facility]), [address], [address] [place] [address] 07/20 CBC w/ auto diff HCT % 40.1 51.0 52.8 High FINAL Marcelo Herms B&Whole Blood [facility] ([facility]), [address], [address] [place] [address] 07/20 CBC w/ auto diff MCV fL 79.0 92.2 94.3 High FINAL Marcelo Herms B&Whole Blood [facility] ([facility]), [address], [address] [place] [address] 07/20 CBC w/ auto diff MCH pg 25.7 32.2 32.5 High FINAL Marcelo Herms B&Whole Blood [facility] ([facility]), [address], [address] [place] [address] 07/20 CBC w/ auto diff MCHC g/dL 32.3 36.5 34.5 FINAL Marcelo Herms B&Whole Blood [facility] ([facility]), [address], [address] [place] [address] 07/20 CBC w/ auto diff RDW-C V, % % 11.6 14.4 12.5 FINAL Marcelo Herms B&Whole Blood [facility] ([facility]), [address], [address] [place] [address] 07/20 CBC w/ auto diff PLT 10*3/u L 163.0 337.0 160.0 Low FINAL Marcelo Herms B&Whole Blood [facility] ([facility]), [address], [address] [place] [address] 11/09 CBC w/ auto diff WBC 10*3/u [...] Blood 5 02/12 Lab Repor t See detail maker and fitter d 02/15 CBC w/ auto diff WBC 10*3/u L 4.2 9.1 8.8 FINAL Marcelo Olson B&Whole Blood [facility] ([facility]), [address], [address] [place] [address] 02/15 CBC w/ auto diff Cristobal # (ANC) 10*3/u L 1.78 5.38 4.12 FINAL Marcelo Mahmoods B&Whole Blood [facility] ([facility]), [address], [address] [facility] [place] [address] 02/15 CBC w/ auto diff LY # 10*3/u L 1.32 3.57 3.32 FINAL Marcelo Mahmoods B&Whole Blood [facility] ([facility]), [address], [address] [facility] [place] [address] 02/15 CBC w/ auto diff MO # 10*3/u L 0.3 0.82 0.96 High FINAL Marcelo Mahmoods B&Whole Blood [facility] ([facility]), [address], [address] [facility] [place] [address] 02/15 CBC w/ auto diff EO # 10*3/u lL 0.04 0.54 0.36 FINAL Marcelo Mahmoods B&Whole Blood [facility] ([facility]), [address], [address] [facility] [place] [address] 02/15 CBC w/ auto diff BA # 10*3/u L 0.01 0.08 0.04 FINAL Marcelo Mahmoods B&Whole Blood [facility] ([facility]), [address], [address] [facility] [place] [address] 02/15 CBC w/ auto diff Cristobal % % 34.0 67.9 46.8 FINAL Marcelo Mahmoods B&Whole Blood [facility] ([facility]), [address], [address] [facility] [place] [facility] 02/15 CBC w/ auto diff LY % % 21.8 53.1 37.7 FINAL Marcelo Mahmoods B&Whole Blood [facility] ([facility]), [address], [address] [facility] [place] [address] 02/15 CBC w/ auto diff MO % % 5.3 12.2 10.9 FINAL Marcelo Mahmoods B&Whole Blood [facility] ([facility]), [address], [address] [facility] [place] [address] 02/15 CBC w/ auto diff EO % % 0.8 7.0 4.1 FINAL Marcelo Mahmoods B&Whole Blood [facility] ([facility]), [address], [address] [facility] [place] [address] 02/15 CBC w/ auto diff BA % % 0.2 1.2 0.5 FINAL Marcelo Mahmoods B&Whole Blood [facility] ([facility]), [address], [address] [facility] [place] [address] 02/15 CBC w/ auto diff RBC 10*6/u L 4.63 6.08 5.33 FINAL Marcelo Olson B&Whole Blood [facility] ([facility]), [address], [address] [facility] [place] [facility] 02/15 CBC w/ auto diff HGB g/dL 13.7 17.5 17.4 FINAL Marcelo Olson B&Whole Blood [facility] ([facility]), [address], [address] [facility] [place] [facility] 02/15 CBC w/ auto diff HCT % 40.1 51.0 50.4 FINAL Marcelo Olson B&Whole Blood [facility] ([facility]), [address], [address] [place] [address] 02/15 CBC w/ auto diff MCV fL 79.0 92.2 94.6 High FINAL Marcelo Mahmoods B&Whole Blood [facility] ([facility]), [address], [address] [place] [address] 02/15 CBC w/ auto diff MCH pg 25.7 32.2 32.6 High FINAL Marcelo Olson B&Whole Blood [facility] ([facility]), [address], [address] [place] [address] 02/15 CBC w/ auto diff MCHC g/dL 32.3 36.5 34.5 FINAL Marcelo Olson B&Whole Blood [facility] ([facility]), [address], [address] [place] [address] 02/15 CBC w/ auto diff RDW-C V, % % 11.6 14.4 14.0 FINAL Marcelo Olson B&Whole Blood [facility] ([facility]), [address], [address] [facility] [place] [facility] 02/15 CBC w/ auto diff PLT 10*3/u L 163.0 337.0 172.0 FINAL Marcelo Mahmoods B&Whole Blood [facility] ([facility]), [address], [address] [facility] [place] [address] 05/31 CBC w/ auto diff WBC 10*3/u L 4.2 9.1 10.4 High FINAL Marcelo Mahmoods B&Whole Blood [facility] ([facility]), [address], [address] [facility] [place] [facility] 05/31 CBC w/ auto diff Cristobal # (ANC) 10*3/u L 1.78 5.38 5.26 FINAL Marcelo Olson B&Whole Blood [facility] ([facility]), [address], [address] [place] [address] 05/31 CBC w/ auto diff LY # 10*3/u L 1.32 3.57 3.84 High FINAL Marcelo Olson B&Whole Blood [facility] ([facility]), [address], [address] [place] [address] 05/31 CBC w/ auto diff MO # 10*3/u L 0.3 0.82 0.94 High FINAL Marcelo Olson B&Whole Blood [facility] ([facility]), [address], [address] [place] [address] 05/31 CBC w/ auto diff EO # 10*3/u lL 0.04 0.54 0.30 FINAL Marcelo Olson B&Whole Blood [facility] ([facility]), [address], [address] [place] [address] 05/31 CBC w/ auto diff BA # 10*3/u L 0.01 0.08 0.03 FINAL Marcelo Olson B&Whole Blood [facility] ([facility]), [address], [address] [place] [address] 05/31 CBC w/ auto diff Cristobal % % 34.0 67.9 50.7 FINAL Marcelo Olson B&Whole Blood [facility] ([facility]), [address], [address] [place] [address] 05/31 CBC w/ auto diff LY % % 21.8 53.1 37.0 FINAL Marcelo Olson B&Whole Blood [facility] ([facility]), [address], [address] [place] [address] 05/31 CBC w/ auto diff MO % % 5.3 12.2 9.1 FINAL Marcelo Mahmoods B&Whole Blood [facility] ([facility]), [address], [address] [place] [address] 05/31 CBC w/ auto diff EO % % 0.8 7.0 2.9 FINAL Marcelo Mahmoods B&Whole Blood [facility] ([facility]), [address], [address] [place] [address] 05/31 CBC w/ auto diff BA % % 0.2 1.2 0.3 FINAL Marcelo Mahmoods B&Whole Blood [facility] ([facility]), [address], [address] [place] [address] 05/31 CBC w/ auto diff RBC 10*6/u L 4.63 6.08 5.01 FINAL Marcelo Mahmoods B&Whole Blood [facility] ([facility]), [address], [address] [place] [address] 05/31 CBC w/ auto diff HGB g/dL 13.7 17.5 16.4 FINAL Marcelo Mahmoods B&Whole Blood [facility] ([facility]), [address], [address] [place] [address] 05/31 CBC w/ auto diff HCT % 40.1 51.0 47.5 FINAL Marcelo Mahmoods B&Whole Blood [facility] ([facility]), [address], [address] [place] [address] 05/31 CBC w/ auto diff MCV fL 79.0 92.2 94.8 High FINAL Marcelo Mahmoods B&Whole Blood [facility] ([facility]), [address], [address] [place] [address] 05/31 CBC w/ auto diff MCH pg 25.7 32.2 32.7 High FINAL [facility] B&Whole Blood [facility] ([facility]), [address], [address] [place] [address] 05/31 CBC w/ auto diff MCHC g/dL 32.3 36.5 34.5 FINAL Marcelo Mahmoods B&Whole Blood [facility] ([facility]), [address], [address] [place] [address] 05/31 CBC w/ auto diff RDW-C V, % % 11.6 14.4 13.8 FINAL Marcelo Mahmoods B&Whole Blood [facility] ([facility]), [address], [address] [place] [address] 05/31 CBC w/ auto diff PLT 10*3/u L 163.0 337.0 161.0 Low FINAL Marcelo Mahmoods B&Whole Blood [facility] ([facility]), [address], [address] [place] [address] 06/21 CBC w/ auto diff WBC 10*3/u L 4.2 9.1 14.1 High FINAL Marcelo [facility] ([facility]), [address], [address] [place] [address] 06/21 CBC w/ auto diff Cristobal # (ANC) 10*3/u L 1.78 5.38 10.63 High FINAL Marcelo [facility] ([facility]), [address], [address] [place] [address] 06/21 CBC w/ auto diff LY # 10*3/u L 1.32 3.57 2.09 FINAL Marcelo [facility] ([facility]), [address], [address] [place] [address] 06/21 CBC w/ auto diff MO # 10*3/u L 0.3 0.82 1.34 High FINAL Marcelo [facility] ([facility]), [address], [address] [place] [address] 06/21 CBC w/ auto diff EO # 10*3/u lL 0.04 0.54 0.03 Low FINAL Marcelo [facility] ([facility]), [address], [address] [place] [address] 06/21 CBC w/ auto diff BA # 10*3/u L 0.01 0.08 0.02 FINAL Marcelo [facility] ([facility]), [address], [address] [place] [address] 06/21 CBC w/ auto diff Cristobal % % 34.0 67.9 75.4 High FINAL Marcelo [facility] ([facility]), [address], [address] [place] [address] 06/21 CBC w/ auto diff LY % % 21.8 53.1 14.8 Low FINAL Marcelo [facility] ([facility]), [address], [address] [place] [address] 06/21 CBC w/ auto diff MO % % 5.3 12.2 9.5 FINAL Marcelo [facility] ([facility]), [address], [address] [place] [address] 06/21 CBC w/ auto diff EO % % 0.8 7.0 0.2 Low FINAL [facility] ([facility]), [address], [address] [place] [address] 06/21 CBC w/ auto diff BA % % 0.2 1.2 0.1 Low FINAL [facility] ([facility]), [address], [address] [place] [address] 06/21 CBC w/ auto diff RBC 10*6/u L 4.63 6.08 4.90 FINAL [facility] ([facility]), [address], [address] [place] [address] 06/21 CBC w/ auto diff HGB g/dL 13.7 17.5 16.0 FINAL [facility] ([facility]), [address], [address] [place] [address] 06/21 CBC w/ auto diff HCT % 40.1 51.0 47.5 FINAL [facility] ([facility]), [address], [address] [place] [address] 06/21 CBC w/ auto diff MCV fL 79.0 92.2 96.9 High FINAL [facility] ([facility]), [address], [address] [place] [address] 06/21 CBC w/ auto diff MCH pg 25.7 32.2 32.7 High FINAL [facility] ([facility]), [address], [address] [place] [address] 06/21 CBC w/ auto diff MCHC g/dL 32.3 36.5 33.7 FINAL [facility] ([facility]), [address], [address] [place] [address] 06/21 CBC w/ auto diff RDW-C V, % % 11.6 14.4 14.0 FINAL [facility] ([facility]), [address], [address] [place] [address] 06/21 CBC w/ auto diff PLT 10*3/u L 163.0 337.0 185.0 FINAL Marcelo Olson [facility] Jennifer ([facility]), [address], [address] [facility] [address] 07/23 Lab Repor t See detail maker and fitter d Medications Date Name Route Dose Frequency Instructions Start Date End Date Status Fill Status Indication 12/22 Sitagli ptin-Me tformin Oral 50 mg-1,00 0 mg orally 1.0 2 times per day active 12/22 Aspirin Oral orally 81.0 mg daily active 12/22 Insulin Detemir Subcuta neous 100 unit/mL subcutan eously 36.0 every evening active 12/22 Cyanoco balamin Oral orally 5000.0 mcg daily active 12/22 [place] 3-DHA-E PA-Fish Oil Oral Liquid 1,600 mg-500 [...] Print Location: Unknown Date/Time Printed: 10/19/2025 17:05 ([facility]) Patient: VALERIE PUENTES Sex: Male : [...] Selected Billing Code(s): PHLEBOTOMY THERAPEUTIC SEPARATE PROCEDURE (68478) Entered By Barbara Casas RN; Incident to Marcelo Olson MD * Nurse Note for: 09-NOV-19 [facility] Nurse Note Print Location: Unknown Date/Time Printed: 10/19/2025 17:05 ([facility]) Patient: VALERIE PUENTES Sex: Male : [...] Selected Billing Code(s): PHLEBOTOMY THERAPEUTIC SEPARATE PROCEDURE (92137) Entered By Ju Gupta RN; Incident to Marcelo Olson MD * Nurse Note for: 20-JUL-19 [facility] Nurse Note Print Location: Unknown Date/Time Printed: 10/19/2025 17:05 ([facility]) Patient: VALERIE PUENTES Sex: Male : [...] Selected Billing Code(s): PHLEBOTOMY THERAPEUTIC SEPARATE PROCEDURE (38989) Entered By Barbara Garcia RN; Incident to Marcelo Olson MD
--- OUTSIDE RECORDS SUMMARY | 2025-10-19 17:05 | XMS_ITS ---
Author Name Interface, [id number] lity Address [address] [place] [address] Organization [facility] Address [address] [place] [address] Allergies and Adverse Reactions Medication/Group Name Reaction [...] Marcelo Olson B&Whole Blood [facility] ([facility]), [address], [address] [place] [address] 02/15 CBC w/ auto diff Cristobal # (ANC) 10*3/u L 1.78 5.38 4.12 FINAL Marcelo Olson B&Whole Blood [facility] ([facility]), [address], [address] [place] [address] 02/15 CBC w/ auto diff LY # 10*3/u L 1.32 3.57 3.32 FINAL Marcelo Olson B&Whole Blood [facility] ([facility]), [address], [address] [place] [address] 02/15 CBC w/ auto diff MO # 10*3/u L 0.3 0.82 0.96 High FINAL Marcelo Olson B&Whole Blood [facility] ([facility]), [address], [address] [place] [address] 02/15 CBC w/ auto diff EO # 10*3/u lL 0.04 0.54 0.36 FINAL Marcelo Olson B&Whole Blood [facility] ([facility]), [address], [address] [place] [address] 02/15 CBC w/ auto diff BA # 10*3/u L 0.01 0.08 0.04 FINAL Marcelo Olson B&Whole Blood [facility] ([facility]), [address], [address] [place] [address] 02/15 CBC w/ auto diff Cristobal % % 34.0 67.9 46.8 FINAL Marcelo Olson B&Whole Blood [facility] ([facility]), [address], [address] [place] [address] 02/15 CBC w/ auto diff LY % % 21.8 53.1 37.7 FINAL Marcelo Mahmoods B&Whole Blood [facility] ([facility]), [address], [place] [facility] [place] [address] 02/15 CBC w/ auto diff MO % % 5.3 12.2 10.9 FINAL Marcelo Mahmoods B&Whole Blood [facility] ([facility]), [address], [place] [facility] [place] [address] 02/15 CBC w/ auto diff EO % % 0.8 7.0 4.1 FINAL Marcelo Olson B&Whole Blood [facility] ([facility]), [address], [address] [facility] [place] [facility] 02/15 CBC w/ auto diff BA % % 0.2 1.2 0.5 FINAL Marcelo Mahmoods B&Whole Blood [facility] (T), [address], Suite [facility] [place] [facility] 02/15 CBC w/ auto diff RBC 10*6/u L 4.63 6.08 5.33 FINAL Marcelo Mahmoods B&Whole Blood [facility] (T), [address], Suite [facility] [place] [facility] 02/15 CBC w/ auto diff HGB g/dL 13.7 17.5 17.4 FINAL Marcelo Olson B&Whole Blood [facility] (T), [address], Suite [facility] [place] [facility] 02/15 CBC w/ auto diff HCT % 40.1 51.0 50.4 FINAL Marcelo Mahmoods B&Whole Blood [facility] (T), [address], Suite [facility] [place] [facility] 02/15 CBC w/ auto diff MCV fL 79.0 92.2 94.6 High FINAL Marcelo Mahmoods B&Whole Blood [facility] ([facility]), [address], [place] [facility] [place] [address] 02/15 CBC w/ auto diff MCH pg 25.7 32.2 32.6 High FINAL Marcelo Mahmoods B&Whole Blood [facility] ([facility]), [address], [place] [facility] [place] [address] 02/15 CBC w/ auto diff MCHC g/dL 32.3 36.5 34.5 FINAL Marcelo Mahmoods B&Whole Blood [facility] ([facility]), [address], [address] [place] [address] 02/15 CBC w/ auto diff RDW-C V, % % 11.6 14.4 14.0 FINAL Marcelo Mahmoods B&Whole Blood [facility] (T), [address], [address] [place] [address] 02/15 CBC w/ auto diff PLT 10*3/u L 163.0 337.0 172.0 FINAL Marcelo Mahmoods B&Whole Blood [facility] ([facility]), [address], [address] [place] [address] 05/31 CBC w/ auto diff WBC 10*3/u L 4.2 9.1 10.4 High FINAL Marcelo Mahmoods B&Whole Blood [facility] ([facility]), [address], [address] [place] [address] 05/31 CBC w/ auto diff Cristobal # (ANC) 10*3/u L 1.78 5.38 5.26 FINAL Marcelo Mahmoods B&Whole Blood [facility] ([facility]), [address], [address] [place] [address] 05/31 CBC w/ auto diff LY # 10*3/u L 1.32 3.57 3.84 High FINAL Marcelo Mahmoods B&Whole Blood [facility] ([facility]), [address], [address] [place] [address] 05/31 CBC w/ auto diff MO # 10*3/u L 0.3 0.82 0.94 High FINAL Marcelo Mahmoods B&Whole Blood [facility] ([facility]), [address], [address] [place] [address] 05/31 CBC w/ auto diff EO # 10*3/u lL 0.04 0.54 0.30 FINAL Marcelo Mahmoods B&Whole Blood [facility] ([facility]), [address], [address] [place] [address] 05/31 CBC w/ auto diff BA # 10*3/u L 0.01 0.08 0.03 FINAL Marcelo Herms B&Whole Blood [facility] ([facility]), [address], [address] [place] [address] 05/31 CBC w/ auto diff Cristobal % % 34.0 67.9 50.7 FINAL Marcelo Herms B&Whole Blood [facility] (T), [address], [address] [facility] [place] Critical [facility] 05/31 CBC w/ auto diff LY % % 21.8 53.1 37.0 FINAL Marcelo Olson B&Whole Blood [facility] (T), [address], [address] [place] [address] 05/31 CBC w/ auto diff MO % % 5.3 12.2 9.1 FINAL Marcelo Olson B&Whole Blood [facility] (T), [address], [address] [place] [address] 05/31 CBC w/ auto diff EO % % 0.8 7.0 2.9 FINAL Marcelo Olson B&Whole Blood [facility] (T), [address], [address] [place] [address] 05/31 CBC w/ auto diff BA % % 0.2 1.2 0.3 FINAL Marcelo Olson B&Whole Blood [facility] (T), [address], [address] [place] [address] 05/31 CBC w/ auto diff RBC 10*6/u L 4.63 6.08 5.01 FINAL Marcelo Olson B&Whole Blood [facility] (T), [address], [address] [place] [address] 05/31 CBC w/ auto diff HGB g/dL 13.7 17.5 16.4 FINAL Marcelo Olson B&Whole Blood [facility] ([facility]), [address], [address] [place] [address] 05/31 CBC w/ auto diff HCT % 40.1 51.0 47.5 FINAL Marcelo Olson B&Whole Blood [facility] (T), [address], [address] [place] [address] 05/31 CBC w/ auto diff MCV fL 79.0 92.2 94.8 High FINAL Marcelo Olson B&Whole Blood [facility] (T), [address], [address] [place] [address] 05/31 CBC w/ auto diff MCH pg 25.7 32.2 32.7 High FINAL Marcelo Olson B&Whole Blood [facility] (T), [address], [address] [place] [address] 05/31 CBC w/ auto diff MCHC g/dL 32.3 36.5 34.5 FINAL Marcelo [facility] B&Whole Blood [facility] ([facility]), [address], [address] [place] [address] 05/31 CBC w/ auto diff RDW-C V, % % 11.6 14.4 13.8 FINAL Marcelo [facility] B&Whole Blood [facility] ([facility]), [address], [address] [place] [address] 05/31 CBC w/ auto diff PLT 10*3/u L 163.0 337.0 161.0 Low FINAL [facility] B&Whole Blood [facility] ([facility]), [address], [address] [place] [address] 06/21 CBC w/ auto diff WBC 10*3/u L 4.2 9.1 14.1 High FINAL [facility] (T), [address], [address] [place] [address] 06/21 CBC w/ auto diff Cristobal # (ANC) 10*3/u L 1.78 5.38 10.63 High FINAL [facility] (T), [address], [address] [place] [address] 06/21 CBC w/ auto diff LY # 10*3/u L 1.32 3.57 2.09 FINAL [facility] (T), [address], [address] [place], [place] [id number] 06/21 CBC w/ auto diff MO # 10*3/u L 0.3 0.82 1.34 High FINAL [facility] ([facility]), [address], [address] [place], [place] [id number] 06/21 CBC w/ auto diff EO # 10*3/u lL 0.04 0.54 0.03 Low FINAL [facility] ([facility]), [address], [address] [facility] [address] 06/21 CBC w/ auto diff BA # 10*3/u L 0.01 0.08 0.02 FINAL [facility] ([facility]), [address], [address] [place] [address] 06/21 CBC w/ auto diff Cristobal % % 34.0 67.9 75.4 High FINAL Marcelo [facility] ([facility]), [address], [address] [place] [address] 06/21 CBC w/ auto diff LY % % 21.8 53.1 14.8 Low FINAL Marcelo [facility] ([facility]), [address], [address] [place] [address] 06/21 CBC w/ auto diff MO % % 5.3 12.2 9.5 FINAL Marcelo [facility] ([facility]), [address], [address] [place] [address] 06/21 CBC w/ auto diff EO % % 0.8 7.0 0.2 Low FINAL Marcelo [facility] ([facility]), [address], [address] [place] [address] 06/21 CBC w/ auto diff BA % % 0.2 1.2 0.1 Low FINAL Marcelo [facility] ([facility]), [address], [address] [place] [address] 06/21 CBC w/ auto diff RBC 10*6/u L 4.63 6.08 4.90 FINAL Marcelo [facility] ([facility]), [address], [address] [place] [address] 06/21 CBC w/ auto diff HGB g/dL 13.7 17.5 16.0 FINAL Marcelo [facility] ([facility]), [address], [address] [place] [address] 06/21 CBC w/ auto diff HCT % 40.1 51.0 47.5 FINAL Marcelo [facility] ([facility]), [address], [address] [place] [address] 06/21 CBC w/ auto diff MCV fL 79.0 92.2 96.9 High FINAL Marcelo [facility] ([facility]), [address], [address] [place] [address] 06/21 CBC w/ auto diff MCH pg 25.7 32.2 32.7 High FINAL [facility] ([facility]), [address], [address] [facility] [address] 06/21 CBC w/ auto diff MCHC g/dL 32.3 36.5 33.7 FINAL [facility] (T), [address], [address] [facility] [address] 06/21 CBC w/ auto diff RDW-C V, % % 11.6 14.4 14.0 FINAL [facility] (T), [address], [address] [facility] [address] 06/21 CBC w/ auto diff PLT 10*3/u L 163.0 337.0 185.0 FINAL [facility] ([facility]), [address], [address] [facility] [address] 07/23 Lab Repor t See top stop attacher d Medications Date Name Route Dose [...] Oral orally 5000.0 mcg daily active 12/22 [place] 3-DHA-E PA-Fish Oil Oral Liquid 1,600 mg-500 [...] Print Location: Unknown Date/Time Printed: 10/19/2025 17:05 (Lauren/[facility]) Patient: VALERIE PUENTES Sex: Male : 1960 [...] Selected Billing Code(s): PHLEBOTOMY THERAPEUTIC SEPARATE PROCEDURE (56260) Entered By Barbara Casas RN; Incident to Marcelo Olson MD
--- OUTSIDE RECORDS SUMMARY | 2025-10-19 17:05 | XMS_ITS ---
Author Name Interface, [id number] lity Address [address] [place] [address] Organization [facility] Address [address] [place] [address] Allergies and Adverse Reactions Medication/Group Name Reaction [...] High FINAL Marcelo [facility] ([facility]), [address], [address] [facility] [address] 06/21 CBC w/ auto diff Cristobal # (ANC) 10*3/u L 1.78 5.38 10.63 High FINAL Marcelo [facility] ([facility]), [address], [address] [facility] [address] 06/21 CBC w/ auto diff LY # 10*3/u L 1.32 3.57 2.09 FINAL [facility] ([facility]), [address], [address] [facility] [address] 06/21 CBC w/ auto diff MO # 10*3/u L 0.3 0.82 1.34 High FINAL Marcelo [facility] ([facility]), [address], [address] [place] [address] 06/21 CBC w/ auto diff EO # 10*3/u lL 0.04 0.54 0.03 Low FINAL Marcelo [facility] ([facility]), [address], [address] [place] [address] 06/21 CBC w/ auto diff BA # 10*3/u L 0.01 0.08 0.02 FINAL Marcelo [facility] ([facility]), [address], [address] [place] [address] 06/21 CBC w/ auto diff Cristobal % % 34.0 67.9 75.4 High FINAL Marcelo [facility] ([facility]), [address], [address] [place] [address] 06/21 CBC w/ auto diff LY % % 21.8 53.1 14.8 Low FINAL Marcelo [facility] ([facility]), [address], [address] [place] [address] 06/21 CBC w/ auto diff MO % % 5.3 12.2 9.5 FINAL Marcelo [facility] ([facility]), [address], [address] [place] [address] 06/21 CBC w/ auto diff EO % % 0.8 7.0 0.2 Low FINAL Marcelo [facility] ([facility]), [address], [address] [place] [address] 06/21 CBC w/ auto diff BA % % 0.2 1.2 0.1 Low FINAL Marcelo [facility] ([facility]), [address], [address] [place] [address] 06/21 CBC w/ auto diff RBC 10*6/u L 4.63 6.08 4.90 FINAL Marcelo [facility] ([facility]), [address], [address] [place] [address] 06/21 CBC w/ auto diff HGB g/dL 13.7 17.5 16.0 FINAL [facility] ([facility]), [address], [address] [place] [address] 06/21 CBC w/ auto diff HCT % 40.1 51.0 47.5 FINAL [facility] ([facility]), [address], [address] [place] [address] 06/21 CBC w/ auto diff MCV fL 79.0 92.2 96.9 High FINAL [facility] ([facility]), [address], [address] [place], [place] [address] 06/21 CBC w/ auto diff MCH pg 25.7 32.2 32.7 High FINAL [facility] ([facility]), [address], [address] [place] [address] 06/21 CBC w/ auto diff MCHC g/dL 32.3 36.5 33.7 FINAL [facility] ([facility]), [address], [address] [facility] [address] 06/21 CBC w/ auto diff RDW-C V, % % 11.6 14.4 14.0 FINAL [facility] ([facility]), [address], [address] [facility] [address] 06/21 CBC w/ auto diff PLT 10*3/u L 163.0 337.0 185.0 FINAL [facility] ([facility]), [address], [address] [place], [place] [address] 07/23 Lab Repor t See coverstitch elastic attacher d Medications Date Name Route Dose [...] Oral orally 5000.0 mcg daily active 12/22 [place] 3-DHA-E PA-Fish Oil Oral Liquid 1,600 mg-500 [...]
--- OUTSIDE RECORDS SUMMARY | 2025-10-19 17:05 | XMS_ITS ---
Author Name Interface, [id number] lity Address [address] [place] [address] Organization [facility] Address [address] [place] [address] Allergies and Adverse Reactions Medication/Group Name Reaction [...] 9.1 8.8 FINAL Marcelo Olson B&Whole Blood [facility] ([facility]), [address], [address] [place] [address] 02/15 CBC w/ auto diff Cristobal # (ANC) 10*3/u L 1.78 5.38 4.12 FINAL Marcelo Olson B&Whole Blood [facility] ([facility]), [address], [address] [place] [address] 02/15 CBC w/ auto diff LY # 10*3/u L 1.32 3.57 3.32 FINAL Marcelo Olson B&Whole Blood [facility] ([facility]), [address], [address] [place] [address] 02/15 CBC w/ auto diff MO # 10*3/u L 0.3 0.82 0.96 High FINAL Marcelo Olson B&Whole Blood [facility] ([facility]), [address], [address] [place] [address] 02/15 CBC w/ auto diff EO # 10*3/u lL 0.04 0.54 0.36 FINAL Marcelo Olson B&Whole Blood [facility] ([facility]), [address], [address] [place] [address] 02/15 CBC w/ auto diff BA # 10*3/u L 0.01 0.08 0.04 FINAL Marcelo Olson B&Whole Blood [facility] ([facility]), [address], [address] [place] [address] 02/15 CBC w/ auto diff Cristobal % % 34.0 67.9 46.8 FINAL Marcelo Olson B&Whole Blood [facility] ([facility]), [address], [address] [place] [address] 02/15 CBC w/ auto diff LY % % 21.8 53.1 37.7 FINAL Marcelo Mahmoods B&Whole Blood [facility] ([facility]), [address], [place] [facility] [address] 02/15 CBC w/ auto diff MO % % 5.3 12.2 10.9 FINAL Marcelo Mahmoods B&Whole Blood [facility] ([facility]), [address], [place] [facility] [address] 02/15 CBC w/ auto diff EO % % 0.8 7.0 4.1 FINAL Marcelo Olson B&Whole Blood [facility] ([facility]), [address], Suite [facility] [place] [facility] 02/15 CBC w/ auto diff BA % % 0.2 1.2 0.5 FINAL Marcelo Mahmoods B&Whole Blood [facility] (T), [address], Suite [facility] [place] [facility] 02/15 CBC w/ auto diff RBC 10*6/u L 4.63 6.08 5.33 FINAL Marcelo Mahmoods B&Whole Blood [facility] (T), [address], Suite [facility] [place] [facility] 02/15 CBC w/ auto diff HGB g/dL 13.7 17.5 17.4 FINAL Marcelo Olson B&Whole Blood [facility] (T), [address], Suite [facility] [place] [facility] 02/15 CBC w/ auto diff HCT % 40.1 51.0 50.4 FINAL Marcelo Mahmoods B&Whole Blood [facility] (T), [address], Suite [facility] [place] [facility] 02/15 CBC w/ auto diff MCV fL 79.0 92.2 94.6 High FINAL Marcelo Mahmoods B&Whole Blood [facility] ([facility]), [address], [place] [facility] [address] 02/15 CBC w/ auto diff MCH pg 25.7 32.2 32.6 High FINAL Marcelo Mahmoods B&Whole Blood [facility] ([facility]), [address], [place] [facility] [place] [address] 02/15 CBC w/ auto diff MCHC g/dL 32.3 36.5 34.5 FINAL Marcelo Mahmoods B&Whole Blood [facility] ([facility]), [address], [address] [place] [address] 02/15 CBC w/ auto diff RDW-C V, % % 11.6 14.4 14.0 FINAL Marcelo Mahmoods B&Whole Blood [facility] (T), [address], [address] [place] [address] 02/15 CBC w/ auto diff PLT 10*3/u L 163.0 337.0 172.0 FINAL Marcelo Mahmoods B&Whole Blood [facility] ([facility]), [address], [address] [place] [address] 05/31 CBC w/ auto diff WBC 10*3/u L 4.2 9.1 10.4 High FINAL Marcelo Mahmoods B&Whole Blood [facility] ([facility]), [address], [address] [place] [address] 05/31 CBC w/ auto diff Cristobal # (ANC) 10*3/u L 1.78 5.38 5.26 FINAL Marcelo Mahmoods B&Whole Blood [facility] ([facility]), [address], [address] [place] [address] 05/31 CBC w/ auto diff LY # 10*3/u L 1.32 3.57 3.84 High FINAL Marcelo Mahmoods B&Whole Blood [facility] ([facility]), [address], [address] [place] [address] 05/31 CBC w/ auto diff MO # 10*3/u L 0.3 0.82 0.94 High FINAL Marcelo Mahmoods B&Whole Blood [facility] ([facility]), [address], [address] [place] [address] 05/31 CBC w/ auto diff EO # 10*3/u lL 0.04 0.54 0.30 FINAL Marcelo Mahmoods B&Whole Blood [facility] ([facility]), [address], [address] [place] [address] 05/31 CBC w/ auto diff BA # 10*3/u L 0.01 0.08 0.03 FINAL Marcelo Herms B&Whole Blood [facility] ([facility]), [address], [address] [place] [address] 05/31 CBC w/ auto diff Cristobal % % 34.0 67.9 50.7 FINAL Marcelo Herms B&Whole Blood [facility] (T), [address], Suite [facility] [place] [facility] 05/31 CBC w/ auto diff LY % % 21.8 53.1 37.0 FINAL Marcelo Olson B&Whole Blood [facility] (T), [address], [address] [place] [address] 05/31 CBC w/ auto diff MO % % 5.3 12.2 9.1 FINAL Marcelo Olson B&Whole Blood [facility] (T), [address], [address] [place] [address] 05/31 CBC w/ auto diff EO % % 0.8 7.0 2.9 FINAL Marcelo Olson B&Whole Blood [facility] (T), [address], [address] [place] [address] 05/31 CBC w/ auto diff BA % % 0.2 1.2 0.3 FINAL Marcelo Olson B&Whole Blood [facility] ([facility]), [address], [address] [place] [address] 05/31 CBC w/ auto diff RBC 10*6/u L 4.63 6.08 5.01 FINAL Marcelo Olson B&Whole Blood [facility] (T), [address], [address] [place] [address] 05/31 CBC w/ auto diff HGB g/dL 13.7 17.5 16.4 FINAL Marcelo Olson B&Whole Blood [facility] ([facility]), [address], [address] [place] [address] 05/31 CBC w/ auto diff HCT % 40.1 51.0 47.5 FINAL Marcelo Olson B&Whole Blood [facility] (T), [address], [address] [place] [address] 05/31 CBC w/ auto diff MCV fL 79.0 92.2 94.8 High FINAL Marcelo Olson B&Whole Blood [facility] ([facility]), [address], [address] [place] [address] 05/31 CBC w/ auto diff MCH pg 25.7 32.2 32.7 High FINAL Marcelo Olson B&Whole Blood [facility] (T), [address], [address] [place] [address] 05/31 CBC w/ auto diff MCHC g/dL 32.3 36.5 34.5 FINAL Marcelo [facility] B&Whole Blood [facility] ([facility]), [address], [address] [place] [address] 05/31 CBC w/ auto diff RDW-C V, % % 11.6 14.4 13.8 FINAL Marcelo [facility] B&Whole Blood [facility] ([facility]), [address], [address] [place] [address] 05/31 CBC w/ auto diff PLT 10*3/u L 163.0 337.0 161.0 Low FINAL [facility] B&Whole Blood [facility] ([facility]), [address], [address] [place] [address] 06/21 CBC w/ auto diff WBC 10*3/u L 4.2 9.1 14.1 High FINAL [facility] (T), [address], [address] [place] [address] 06/21 CBC w/ auto diff Cristobal # (ANC) 10*3/u L 1.78 5.38 10.63 High FINAL [facility] (T), [address], [address] [place] [address] 06/21 CBC w/ auto diff LY # 10*3/u L 1.32 3.57 2.09 FINAL [facility] (T), [address], [address] [place], [place] [id number] 06/21 CBC w/ auto diff MO # 10*3/u L 0.3 0.82 1.34 High FINAL [facility] ([facility]), [address], [address] [place], [place] [id number] 06/21 CBC w/ auto diff EO # 10*3/u lL 0.04 0.54 0.03 Low FINAL [facility] ([facility]), [address], [address] [facility] [address] 06/21 CBC w/ auto diff BA # 10*3/u L 0.01 0.08 0.02 FINAL [facility] ([facility]), [address], [address] [place] [address] 06/21 CBC w/ auto diff Cristobal % % 34.0 67.9 75.4 High FINAL Marcelo [facility] ([facility]), [address], [address] [place] [address] 06/21 CBC w/ auto diff LY % % 21.8 53.1 14.8 Low FINAL Marcelo [facility] ([facility]), [address], [address] [place] [address] 06/21 CBC w/ auto diff MO % % 5.3 12.2 9.5 FINAL Marcelo [facility] ([facility]), [address], [address] [place] [address] 06/21 CBC w/ auto diff EO % % 0.8 7.0 0.2 Low FINAL Marcelo [facility] ([facility]), [address], [address] [place] [address] 06/21 CBC w/ auto diff BA % % 0.2 1.2 0.1 Low FINAL Marcelo [facility] ([facility]), [address], [address] [place] [address] 06/21 CBC w/ auto diff RBC 10*6/u L 4.63 6.08 4.90 FINAL Marcelo [facility] ([facility]), [address], [address] [place] [address] 06/21 CBC w/ auto diff HGB g/dL 13.7 17.5 16.0 FINAL Marcelo [facility] ([facility]), [address], [address] [place] [address] 06/21 CBC w/ auto diff HCT % 40.1 51.0 47.5 FINAL Marcelo [facility] ([facility]), [address], [address] [place] [address] 06/21 CBC w/ auto diff MCV fL 79.0 92.2 96.9 High FINAL Marcelo [facility] ([facility]), [address], [address] [place] [address] 06/21 CBC w/ auto diff MCH pg 25.7 32.2 32.7 High FINAL [facility] ([facility]), [address], [address] [facility] [address] 06/21 CBC w/ auto diff MCHC g/dL 32.3 36.5 33.7 FINAL [facility] (T), [address], [address] [facility] [address] 06/21 CBC w/ auto diff RDW-C V, % % 11.6 14.4 14.0 FINAL [facility] (T), [address], [address] [facility] [address] 06/21 CBC w/ auto diff PLT 10*3/u L 163.0 337.0 185.0 FINAL [facility] ([facility]), [address], [address] [facility] [address] 07/23 Lab Repor t See elastic attacher chainstitch d Medications Date Name Route Dose Frequency Instructions Start Date End Date Status Fill Status Indication 12/22 Sitagli ptin-Me tformin Oral 50 mg-1,00 0 mg orally 1.0 2 times per day active 12/22 Aspirin Oral orally 81.0 mg daily active 12/22 Insulin Detemir Subcuta neous 100 unit/mL subcutan eously 36.0 every evening active 12/22 Cyanoco balamin Oral orally 5000.0 mcg daily active 12/22 [place] 3-DHA-E PA-Fish Oil Oral Liquid 1,600 mg-500 [...] Print Location: Unknown Date/Time Printed: 10/19/2025 17:05 ([facility]) Patient: VALERIE PUENTES Sex: [...] Selected Billing Code(s): PHLEBOTOMY THERAPEUTIC SEPARATE PROCEDURE (68861) Entered By Barbara Casas RN; Incident to Marcelo Olson MD
--- OUTSIDE RECORDS SUMMARY | 2025-10-19 17:06 | XMS_ITS | CCD ---
Author Name Interface, [id number] lity Address [address] [id number] Organization [facility] Address [address] [place] [id number] Care Team Providers Care Steeple Jack Name Role Phone Whitney HUGHES, Marcelo Munguia [...] Oral orally 25.0 mg daily active 12/22 Kerrick 3-DHA-E PA-Fish Oil Oral Liquid 1,600 mg-500 [...]
--- OUTSIDE RECORDS SUMMARY | 2025-10-19 17:06 | XMS_ITS | Clinical Summary ---
Author Organization [facility] Address [address] [place] [address] Care Team Providers Care Finish Inspector Name Role Phone Unavailable Primary Care Provider Unavailabl e Source Comments [facility] is fully rolled out with thefollowing exceptions:General Clinical Research [facility] Social History Tobacco Use Types Packs/Day Years Used Date Smoking Tobacco: Never Assessed Sex and Gender Information Value Date Recorded Sex Assigned at Not on file Legal Sex Male 7:49 PM EST Gender Identity Not on file Sexual Orientation Not on file Plan of Treatment Health Maintenance Due Date Last Done Comments MMR IMMUNIZATION (1 of 1 - S tandard series) 1959 DTAP/Tdap/Td IMMUNIZATION (1 - Tdap) 1965 VARICELLA IMMUNIZATION (1 of 2 - 13+ 2-dose series) 1971 AMB SEASONAL FLU VACCINE (#1) 07/31/2025 COVID-19 Vaccine ( - 2024-2 6 season) 2025 Respiratory Syncytial Virus (RSV) >60yo or (1 - 1-dose 75+ series) 2033 HEPATITIS B IMMUNIZATION Aged Out No longer eligible based on patient's age to complete this topic HIB IMMUNIZATION Aged Out No longer e ligible based on patient's age to complete this topic HPV IMMUNIZATION Aged Out No longer e ligible based on patient's age to complete this topic IPV IMMUNIZATION Aged Out No longer e ligible based on patient's age to complete this topic MCV4 IMMUNIZATION Aged Out No longer eligible based on patient's age to complete this topic MENINGOCOCCAL B VACCINE Aged Out No l onger eligible based on patient's age to complete this topic Respiratory Syncytial Virus (RSV) <20mo Aged Out No longer eligible b ased on patient's age to complete this topic Insurance [facility] Address: [place] [address] * Guarantor: Oleksandr Fernandez Account Type Relation to Patient Date of Phone Billing Address [facility] Self 1960 [address] [place] [address] [facility] Address: [place] [address]
--- OUTSIDE RECORDS SUMMARY | 2025-10-19 17:06 | XMS_ITS ---
Author Name Interface, [id number] lity Address [address] [place] [address] Organization [facility] Address [address] [place] [address] Allergies and Adverse Reactions Medication/Group Name Reaction [...] L 4.2 9.1 14.1 High FINAL Marcelo [facility] ([facility]), [address], [address] [facility] [address] 06/21 CBC w/ auto diff Cristobal # (ANC) 10*3/u L 1.78 5.38 10.63 High FINAL Marcelo [facility] ([facility]), [address], [address] [facility] [address] 06/21 CBC w/ auto diff LY # 10*3/u L 1.32 3.57 2.09 FINAL [facility] ([facility]), [address], [address] [facility] [address] 06/21 CBC w/ auto diff MO # 10*3/u L 0.3 0.82 1.34 High FINAL Marcelo [facility] ([facility]), [address], [address] [place] [address] 06/21 CBC w/ auto diff EO # 10*3/u lL 0.04 0.54 0.03 Low FINAL Marcelo [facility] ([facility]), [address], [address] [place] [address] 06/21 CBC w/ auto diff BA # 10*3/u L 0.01 0.08 0.02 FINAL Marcelo [facility] ([facility]), [address], [address] [place] [address] 06/21 CBC w/ auto diff Cristobal % % 34.0 67.9 75.4 High FINAL Marcelo [facility] ([facility]), [address], [address] [place] [address] 06/21 CBC w/ auto diff LY % % 21.8 53.1 14.8 Low FINAL Marcelo [facility] ([facility]), [address], [address] [place] [address] 06/21 CBC w/ auto diff MO % % 5.3 12.2 9.5 FINAL Marcelo [facility] ([facility]), [address], [address] [place] [address] 06/21 CBC w/ auto diff EO % % 0.8 7.0 0.2 Low FINAL Marcelo [facility] ([facility]), [address], [address] [place] [address] 06/21 CBC w/ auto diff BA % % 0.2 1.2 0.1 Low FINAL Marcelo [facility] ([facility]), [address], [address] [place] [address] 06/21 CBC w/ auto diff RBC 10*6/u L 4.63 6.08 4.90 FINAL Marcelo [facility] ([facility]), [address], [address] [place] [address] 06/21 CBC w/ auto diff HGB g/dL 13.7 17.5 16.0 FINAL [facility] ([facility]), [address], [address] [place] [address] 06/21 CBC w/ auto diff HCT % 40.1 51.0 47.5 FINAL [facility] ([facility]), [address], [address] [place] [address] 06/21 CBC w/ auto diff MCV fL 79.0 92.2 96.9 High FINAL [facility] ([facility]), [address], [address] [place], [place] [address] 06/21 CBC w/ auto diff MCH pg 25.7 32.2 32.7 High FINAL [facility] ([facility]), [address], [address] [place] [address] 06/21 CBC w/ auto diff MCHC g/dL 32.3 36.5 33.7 FINAL [facility] ([facility]), [address], [address] [facility] [address] 06/21 CBC w/ auto diff RDW-C V, % % 11.6 14.4 14.0 FINAL [facility] ([facility]), [address], [address] [facility] [address] 06/21 CBC w/ auto diff PLT 10*3/u L 163.0 337.0 185.0 FINAL [facility] ([facility]), [address], [address] [place], [place] [address] 07/23 Lab Repor t See supervisor pre wave d Medications Date Name Route Dose Frequency Instructions Start Date End Date Status Fill Status Indication 12/22 Sitagli ptin-Me tformin Oral 50 mg-1,00 0 mg orally 1.0 2 times per day active 12/22 Aspirin Oral orally 81.0 mg daily active 12/22 Insulin Detemir Subcuta neous 100 unit/mL subcutan eously 36.0 every evening active 12/22 Cyanoco balamin Oral orally 5000.0 mcg daily active 12/22 [place] 3-DHA-E PA-Fish Oil Oral Liquid 1,600 mg-500 [...]
--- OUTSIDE RECORDS SUMMARY | 2025-10-19 17:06 | XMS_ITS | Data Portability ---
Author Organization [facility] [place] Address [address] [place] [address] Care Team Providers Care Client Professional Name Role Phone CHANDNI BENITES Primary Care Provider [phone] RAFAEL POZO Relief Master Assessment Encounter Date Assessment Date Assessment LastModified by Organization Details LastModified Time 09/03/2023 09/03/2023 Assessment 1.Dyspnea *PFT ( 09/03/2023): no restriction, + midflow obstruction, no change after GERI 2. Symptoms consistent with GABE: snoring, witnessed apneas, fatigue, headaches, hypersomnia and brain fog 3. Current heavy smoker: 1 ppd x 50 years 4. Seasonal allergies *+dust Plan 1.Order HST High suspicion of GABE. I discussed the anatomy and physiology of the disease. I explained common symptoms and mounter effects of the disease. We discussed diagnostic and treatment options as well as realistic expectations with treatment. 2. Request recent Chest CT from 3. Currently declines need for inhaled medications 4.RTO after HST completed PFT The patient underwent pulmonary function testing today to evaluate complaints of dyspnea. Results were discussed with the patient. The patient was sent home with a home sleep test to evaluate complaints of snoring, non restorative sleep, excessive daytime sleepiness, hypersomnia and awakening gasping for breath. The patient was given written instructions after a personal demonstration on how to set up and start the study. Smoking cessation was discussed with the patient for less than 10 minutes. The detrimental effects to the patient's health of continued smoking was explained. Methods to quit smoking were also discussed to include nicotine replacement therapy and pharmacologic treatment. Not available 09/03/2023 13:03:07 09/04/2023 09/04/2023 Assessment 1.Dyspnea *PFT ( 09/03/2023): no restriction, + midflow obstruction, no change after GERI 2. Symptoms consistent with GABE: snoring, witnessed apneas, fatigue, headaches, hypersomnia and brain fog *HST (09/03/2023): moderate obstructive sleep apnea with AHI: 15.0 snoring, and sleep-related hypoxia with a filomena of 78% and maximum heart rate 157 BPM 4. Current heavy smoker: 1 ppd x 50 years 5. Seasonal allergies *+dust Plan 1.Recommend APAP; Patient currently declines. Discussed risk of untreated GABE including but not limited to . Advised trialling positional changes in bed; Patient to contact office if he decides to pursue CPAP 2. Request recent Chest CT from [facility] 3. Currently declines need for inhaled medications 4.RTO as scheduled Smoking cessation was discussed with the patient for less than 10 minutes. The detrimental effects to the patient's health of continued smoking was explained. Methods to quit smoking were also discussed to include nicotine replacement therapy and pharmacologic treatment. Not available 09/04/2023 11:04:30 10/09/2023 10/09/2023 Assessment 1.Dyspnea *PFT ( 09/03/2023): no restriction, + midflow obstruction, no change after GERI 2. Symptoms consistent with GABE: snoring, witnessed apneas, fatigue, headaches, hypersomnia and brain fog *HST (09/03/2023): moderate obstructive sleep apnea with AHI: 15.0 snoring, and sleep-related hypoxia with a filomena of 78% and maximum heart rate 157 BPM 4. Current heavy smoker: 1 ppd x 50 years *LDCT Chest (09/18/2022): no evidence of suspicious pulmonary nodularity; no acute pulmonary findings 5. Seasonal allergies *+dust Plan 1.Recommend APAP; Patient currently declines. Discussed risk of untreated GABE including but not limited to . 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 Feels as if CPAP machine will not work with his schedule 2. Order LDCT Chest at next OV 3. Currently declines need for inhaled medications 4. RX Trelegy 100 mcg 1 puff daily; I personally demonstrated use of the Ellipta device during todays office visit; Instructed to rinse mouth after each use 5. RX Flonase daily 6. RX Albuterol HFA prn; discussed indications for use 7.RTO as scheduled Smoking cessation was discussed with the patient for less than 10 minutes. The detrimental effects to the patient's health of continued smoking was explained. Methods to quit smoking were also discussed to include nicotine replacement therapy and pharmacologic treatment. Not available 10/12/2023 13:56:44 Plan of Treatment Reminders Order Date Submit Date Provider Last Modified By Organization Details Last Modified Time Details Appointments None recorded. Lab None recorded. Referral None recorded. Procedures home sleep testing (PROC) 2022 [email or web address] Rodo Carr DO ([facility]), [address] [address], [place], [address], 19:18:13 Surgeries None recorded. Imaging None recorded. Medication Orders fluticasone propionate 50 mcg/actuati on nasal spray,suspe nsion [address], [address], 10:52:39 Trelegy Ellipta 100 mcg-62.5 mcg-25 mcg powder for inhalation [email or web address], [address], 11:04:37 albuterol sulfate HFA 90 mcg/actuati on aerosol inhaler [address], [address], 10:52:39 Patient TargetsNo targets recorded. Patient Instructions Encounter Date Encounter Id Patient Instructions Last Modified By Organization Details Last Modified Time 09/03/2023 [id number] smoking cessatio n counseling, greater than 3 minutes up to 10 minutes* [email or web address] Not available 09/18/2023 19:18:21 medical record request* - please forward most recent chest ct [email or web address] Not available 09/18/2023 19:18:21 09/04/2023 [id number] smoking cessatio n counseling, greater than 3 minutes up to 10 minutes* [email or web address] Not available 09/18/2023 19:23:49 10/09/2023 [id number] smoking cessatio n counseling, greater than 3 minutes up to 10 minutes* [email or web address] Not available 11/06/2023 15:48:59 Reason for Referral None Reported. Results Created Date Observation Date Name Description Value Unit Range Abnormal Flag Note LastModifiedBy Organization Detail LastModifiedTime 09/04/2009/04/2023 home sleep testi ng (PROC ) No observ ation record ed. [email or web address] Not Available 2022 11:21:40 09/05/2009/03/2023 compl ete PFT w/ post [facility] hodil ator diane metry * No observ ation record ed. [email or web address] Not Available 2022 08:37:11 10/16/2009/18/2022 LDCT, chest , for lung cance r rockye kraig No observ ation record ed. [email or web address] Not Available 2022 12:26:21 Result Notes None recorded. Problems Name Problem SNOMED Code Status Onset Date Resolution Date Notes Provider Name and Address Organization Details Recorded Time Dyspnea 245731653 Active 2022 Sandra Moreno NP [address], [place], [address], [place] - [facility] 13:01:39 Hypersomnia 78150732 Active 2022 Sandra Moreno NP [address], [place], [address], [place] - [facility] 13:01:46 Fatigue 24649478 Active 2022 Sandra Moreno NP [address], [place], [address], [place] - [facility] 13:01:57 Heavy tobacco smoker 6229390036236 03 Active 2022 Sandra Moreno NP [address], [place], [address], [facility] 13:02:05 Reactive airway disease 844200887187 Active 2022 Sandra Moreno NP [address], [place], [address], [facility] 3 10:40:22 Allergic rhinitis 93373149 Active 2022 Sandra Moreno NP [address], [place], [address], [facility] - [facility] 3 10:52:01 Problem Notes None recorded. Medical Equipment None Reported. Allergies Allergen ID Allergen Name Allergen Category Reaction Reaction Severity Criticality Documentation Date Start Date Code Code System Note Provider Name and Address Organization Details Recorded Time 91020 Phenergan medicatio n hallucina tions Not available Not available 09/03/2023 83594 8 Rx[facility] 3 08:53:25 Medications Name Sig Start Date Stop Date Status Note LastModified by Organization Details LastModified Time cyclobenzap rine 10 mg tablet ONE (1) BY MOUTH THREE (3) TIMES DAILY NEEDED active Not Available Not Available No t Available atorvastati n 40 mg tablet TAKE ONE (1) TABLET BY MOUTH EVERY DAY active Not Available Not Available No t Available gabapentin 600 mg tablet TAKE ONE (1) TABLET BY MOUTH THREE TIMES A DAY active Not Available Not Available No t Available cetirizine 10 mg tablet TAKE ONE (1) TABLET EVERY DAY BY ORAL ROUTE NEEDED. active Not Available Not Available No t Available azithromyci n 250 mg tablet TAKE 2 TABLETS TODAY THEN TAKE 1 TABLET DAILY FOR THE NEXT 4 DAYS active Not Available Not Available No t Available benzonatate 200 mg capsule TAKE ONE (1) CAPSULE THREE (3) TIMES A DAY BY ORAL ROUTE NEEDED FOR FIVE (5) DAYS. active Not Available Not Available No t Available meloxicam 15 mg tablet TAKE 1 TABLET BY MOUTH EVERY DAY 10/05 /2023 completed Not Available Not Available Not Available prednisone 20 mg tablet TAKE ONE (1) TABLET TWICE A DAY BY ORAL ROUTE FOR SIX (6) DAYS. active Not Available Not Available No t Available clopidogrel 75 mg tablet TAKE ONE (1) TABLET BY MOUTH ONCE DAILY active Not Available Not Available No t Available bisoprolol fumarate 5 mg tablet TAKE ONE (1) TABLET BY MOUTH EVERY DAY active Not Available Not Available No t Available cephalexin 500 mg capsule TAKE ONE (1) CAPSULE THREE (3) TIMES DAILY TILL GONE. TAKE WITH FOOD. active Not Available Not Available No t Available montelukast 10 mg tablet TAKE ONE (1) TABLET BY MOUTH ONCE DAILY active Not Available Not Available No t Available albuterol sulfate HFA 90 mcg/actuati on aerosol inhaler INHALE TWO (2) PUFFS EVERY FOUR (4) HOURS BY INHALATIO N ROUTE NEEDED FOR 30 DAYS. active Not Available Not Available No t Available fluticasone propionate 50 mcg/actuati on nasal spray,suspe nsion SPRAY ONE (1) SPRAY EVERY DAY BY INTRANASA L ROUTE FOR 30 DAYS. active Not Available Not Available No t Available lisinopril 2.5 mg tablet Take 1 tablet every day by oral route. active Not Available Not Available No t Available loratadine 10 mg tablet TAKE ONE (1) TABLET BY MOUTH EVERY DAY NEEDED active Not Available Not Available No t Available Levemir FlexPen 100 unit/mL (3 mL) solution subcutaneou s insulin pen INJECT 36 UNITS SUBCUTANE OUSLY AT BEDTIME active Not Available Not Available No t Available Janumet 50 mg-1,000 mg tablet TAKE ONE (1) TABLET BY MOUTH TWICE DAILY active Not Available Not Available No t Available ranolazine ER 1,000 mg tablet,exte nded release,12 hr TAKE ONE (1) TABLET BY MOUTH TWICE DAILY active Not Available Not Available No t Available Jardiance 25 mg tablet TAKE ONE (1) TABLET BY MOUTH EVERY DAY active Not Available Not Available No t Available Trulicity 1.5 mg/0.5 mL subcutaneou s pen injector INJECT 0.5 ML EVERY WEEK BY SUBCUTANE OUS ROUTE. active Not Available Not Available No t Available TechLITE Pen Needle 32 gauge x 1/4 USE TO INJECT INSULIN ONCE DAILY DIRECTED active Not Available Not Available No t Available Trelegy Ellipta 100 mcg-62.5 mcg-25 mcg powder for inhalation INHALE ONE (1) PUFF EVERY DAY BY INHALATIO N ROUTE FOR 30 DAYS. active Not Available Not Available No t Available Trulicity 3 mg/0.5 mL subcutaneou s pen injector INJECT THREE (3) MG EVERY WEEK BY SUBCUTANE OUS ROUTE. 09/03 completed Not Available Not Available Not Available Vitals Date Recorded Body weight Body mass index (BMI) Body height Oxygen saturation Oxygen saturation in Arterial blood by Pulse oximetry Heart rate Respiratory rate Systolic And Diastolic Provider Name and Address Organization Details Last Updated DateTime 3 58480.3 g 21.3 kg/m2 175.26 cm 97 % 97 % 54 /min 18 /min 148/70 mm[Hg] amisha ramirez [place] - [facility] 09:34:28 Date Recorded Body height Provider Name an d Address Organization Details Last Updated DateTime 09/04/2023 175.26 cm amishasa ramirez [place] - [facility] 09/04/2023 09:45:22 Date Recorded Body height Body mass index (BMI) Body weight Oxygen saturation Oxygen saturation in Arterial blood by Pulse oximetry Heart rate Respiratory rate Body temperature Systolic And Diastolic Provider Name and Address Organization Details Last Updated DateTime 3 175.26 cm 21.3 kg/m2 82152.3 g 94 % 94 % 57 /min 19 /min 96.6 [degF] 160/66 mm[Hg] Shruti Boyd [place] - [facility] 3 10:18:44 Social History Question Answer Notes LastModified by Organizat ion Details LastModified Time Tobacco Smoking Status Current Every Day Smoker amisha [place], [place] - [facility] 09/03/2023 09:36:52 Do You Have An Advance Directive? No Information not available 09/03/2023 Is Your Home Air Conditioned? Yes [email or web address] Information not available 09/03/2023 Do You Have A Medical Power Of Farm Technician? No [email or web address] Information not available 09/03/2023 What Was The Date Of Your Most Recent Tobacco Screening? 10/09/2023 Information not available 10/09/2023 Are There Any Occupational Health Risks Where You Work? Yes [email or web address] Information not available 09/03/2023 What Is Your Current Pack Years? 30ormorepac alyshas [email or web address] Information not available 09/03/2023 Do You Have Any Pets? Yes Cats, Dogs, Birds Information not available 09/03/2023 What Is Your Relationship Status? Information not available 09/03/2023 At What Age Did You Start Smoking Tobacco? 6 Information not available 10/09/2023 Are There Any Smokers In Your House? Yes [email or web address] Information not available 09/03/2023 How Much Tobacco Do You Smoke? 1 PPD [email or web address] Information not available 09/03/2023 Has Tobacco Cessation Counseling Been Provided? Yes [email or web address] Information not available 09/03/2023 On What Date Was Tobacco Cessation Counseling Provided? 09/03/2023 [email or web address] Information not available 09/03/2023 How Many Years Have You Smoked Tobacco? 50 [email or web address] Information not available 09/03/2023 Have You Recently Traveled Abroad? No [email or web address] Information not available 09/03/2023 Are You Currently In School? No [email or web address] Information not available 09/03/2023 Sex: Unknown Functional Status Question Answer Note LastModified by Organizat ion Details LastModified Time Do you or have you ever used any other forms of tobacco or nicotine? No [email or web address] Information not available 09/03/2023 Are you currently employed? Yes [email or web address] Information not available 09/03/2023 What is your occupation? [employer] [email or web address] Information not available 09/03/2023 Mental Status None recorded. Family History Nothing Reported. Medical History No medical history recorded. Past Encounters Encounter ID Performer Location Encounter Start Date Encounter Closed Date Diagnosis/Indication Diagnosis SNOMED-CT Code Diagnosis ICD10 Code Diagnosis IMO Codes Diagnosis Note [id number] Sandra Moreno NP [place] [facility] [address] [place] [address] 09/03/2023 09:25:14 09/03/2023 10:26:27 Hypersomnia 04643588 G47.10 Heavy tobacco smoker 327 4886531 14113 Z72.0 Fatigue 23138936 R53.83 Dyspnea 663107180 R06.00 [id number] Sandra Moreno NP [address] [place] [address] 09/04/2023 09:44:51 09/04/2023 11:09:41 Hypersomnia 57185091 G47.10 Heavy tobacco smoker 046 1728940 14684 Z72.0 Fatigue 95344618 R53.83 Dyspnea 773761919 R06.00 [id number] Sandra Moreno NP [address] [place] [address] 10/09/2023 10:05:02 10/09/2023 11:06:12 Dyspnea 079650926 R06.00 Hypersomnia 00688794 G47 .10 Heavy tobacco smoker 936 9554174 08796 Z72.0 Fatigue 29747220 R53.83 Reactive a irway disease 5797479562 06 J45.909 Allergic rhinitis 231482 04 J30.9 Health Concerns Section Related Observation LastModified by Organization Detai ls LastModified Time None Recorded Concern Status LastModified by Organization Details LastModified Time None Recorded Advance Directives Directive N: Payers Insurance Date Sequence Insurance Name Policy Number Policy Horton Covered Member ID Horton Member ID Guarantor Name 02/22/2024 1 [employer] [id number] 3 Oleksandr Fernandez [id number] Oleksandr Fernandez 02/22/2024 2 FOR LIFE () Oleksandr Fernandez [id number] Oleksandr Fernandez Notes Date Note Type Note Provider Name and Address Organization Details Recorded Time 09/03/2023 text/html ROS as noted in the HPI This is a 62-year-old male who presents to the office today as a new patient referred by Dr. Benites for the evaluation of sleep apnea.Patient denies any previous respiratory diagnosis. He does complain of seasonal allergies and has been told he is allergic to dust. Patient reports a productive cough with clear mucus, shortness of breath with exertion and wheezing. He is on no inhaled medications.Patient is a current smoker of one pack per day 50 years and reports he has had a recent low dose chest CT. Patient has 5 cats, 5 dogs and recently hatched pheasants in the home.A focused sleep assessment is positive for snoring, witnessed apneas, fatigue, headaches, hypersomnia and brain fog. Patient denies any inheritable lung diseases. 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 Sandra Moreno NP [address], [place], [address], [facility] 09/03/2023 13:04:39 09/04/2023 text/html ROS as noted in the HPI This 62 year old male, returns to the office to discuss the results of recent home sleep testing.Home sleep study performed on 09/03/2023 that revealed moderate obstructive sleep apneawith AHI: 15.0 snoring, and sleep-related hypoxia with a filomena of 78% and maximum heart rate 157 BPM. I discussed the results of the study with the patient and proposed treatment plan.Denies fever, chills, chest pain, nausea, vomiting, diarrhea Sandra Moreno NP [address], [place], [address], [facility] 09/04/2023 11:05:46 10/09/2023 text/html ROS as noted in the HPI This is a 62 year-old male, presents to the office for the ongoing management of dyspnea and GABE (untreated). Patient denies any significant medical events since his last office visit. Today the patient complains of slight wheezing, and a dry cough. He denies any shortness of breath or nocturnal respiratory symptoms. He feels his wheezing is related to a sinus cold. Denies fever, chills, chest pain, nausea, vomiting, diarrhea Sandra Moreno NP [address], [place], [address], [email or web address] 10/12/2023 13:56:50
--- OUTSIDE RECORDS SUMMARY | 2025-10-19 17:06 | XMS_ITS ---
Author Name Interface, [id number] lity Address [address] [place] [address] Organization [facility] Address [address] [place] [address] Allergies and Adverse Reactions Medication/Group Name Reaction [...] 9.1 High FINAL Marcelo Olson B&Whole Blood [facility] ([facility]), [address], [address] [place] [address] 07/20 CBC w/ auto diff Cristobal # (ANC) 10*3/u L 1.78 5.38 4.47 FINAL Marcelo Olson B&Whole Blood [facility] ([facility]), [address], Suite [facility] [place] [facility] 07/20 CBC w/ auto diff LY # 10*3/u L 1.32 3.57 3.40 FINAL Marcelo Olson B&Whole Blood [facility] ([facility]), [address], [address] [place], [place] [id number] 07/20 CBC w/ auto diff MO # 10*3/u L 0.3 0.82 0.80 FINAL Marcelo Olson B&Whole Blood [facility] ([facility]), [address], Suite [facility] [place] [address] 07/20 CBC w/ auto diff EO # 10*3/u lL 0.04 0.54 0.38 FINAL Marcelo Olson B&Whole Blood [facility] ([facility]), [address], [address] [facility] [place] [address] 07/20 CBC w/ auto diff BA # 10*3/u L 0.01 0.08 0.03 FINAL Marcelo Funez&Whole Blood [facility] (T), [address], [address] [place] [address] 07/20 CBC w/ auto diff Cristobal % % 34.0 67.9 49.3 FINAL Marcelo Herms B&Whole Blood [facility] ([facility]), [address], [address] [place] [address] 07/20 CBC w/ auto diff LY % % 21.8 53.1 37.4 FINAL Marcelo Herms B&Whole Blood [facility] (T), [address], [address] [place] [address] 07/20 CBC w/ auto diff MO % % 5.3 12.2 8.8 FINAL Marcelo Herms B&Whole Blood [facility] ([facility]), [address], [address] [place] [address] 07/20 CBC w/ auto diff EO % % 0.8 7.0 4.2 FINAL Marcelo Herms B&Whole Blood [facility] (T), [address], [address] [place] [address] 07/20 CBC w/ auto diff BA % % 0.2 1.2 0.3 FINAL Marcelo Herms B&Whole Blood [facility] ([facility]), [address], [address] [place] [address] 07/20 CBC w/ auto diff RBC 10*6/u L 4.63 6.08 5.60 FINAL Marcelo Herms B&Whole Blood [facility] (T), [address], [address] [place] [address] 07/20 CBC w/ auto diff HGB g/dL 13.7 17.5 18.2 High FINAL Marcelo Herms B&Whole Blood [facility] (T), [address], [address] [place] [address] 07/20 CBC w/ auto diff HCT % 40.1 51.0 52.8 High FINAL Marcelo Herms B&Whole Blood [facility] ([facility]), [address], [address] [place] [address] 07/20 CBC w/ auto diff MCV fL 79.0 92.2 94.3 High FINAL Marcelo Herms B&Whole Blood [facility] ([facility]), [address], [address] [place] [address] 07/20 CBC w/ auto diff MCH pg 25.7 32.2 32.5 High FINAL Marcelo Herms B&Whole Blood [facility] ([facility]), [address], [address] [place] [address] 07/20 CBC w/ auto diff MCHC g/dL 32.3 36.5 34.5 FINAL Marcelo Herms B&Whole Blood [facility] ([facility]), [address], [address] [place] [address] 07/20 CBC w/ auto diff RDW-C V, % % 11.6 14.4 12.5 FINAL Marcelo Herms B&Whole Blood [facility] ([facility]), [address], [address] [place] [address] 07/20 CBC w/ auto diff PLT 10*3/u L 163.0 337.0 160.0 Low FINAL Marcelo Herms B&Whole Blood [facility] ([facility]), [address], [address] [place] [address] 11/09 CBC w/ auto diff WBC 10*3/u [...] Blood 5 02/12 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 02/15 CBC w/ auto diff WBC 10*3/u L 4.2 9.1 8.8 FINAL Marcelo Olson B&Whole Blood [facility] ([facility]), [address], [address] [place] [address] 02/15 CBC w/ auto diff Cristobal # (ANC) 10*3/u L 1.78 5.38 4.12 FINAL Marcelo Mahmoods B&Whole Blood [facility] ([facility]), [address], [address] [facility] [place] [address] 02/15 CBC w/ auto diff LY # 10*3/u L 1.32 3.57 3.32 FINAL Marcelo Mahmoods B&Whole Blood [facility] ([facility]), [address], [address] [facility] [place] [address] 02/15 CBC w/ auto diff MO # 10*3/u L 0.3 0.82 0.96 High FINAL Marcelo Mahmoods B&Whole Blood [facility] ([facility]), [address], [address] [facility] [place] [address] 02/15 CBC w/ auto diff EO # 10*3/u lL 0.04 0.54 0.36 FINAL Marcelo Mahmoods B&Whole Blood [facility] (T), [address], [address] [facility] [place] [address] 02/15 CBC w/ auto diff BA # 10*3/u L 0.01 0.08 0.04 FINAL Marcelo Mahmoods B&Whole Blood [facility] ([facility]), [address], [address] [facility] [place] [address] 02/15 CBC w/ auto diff Cristobal % % 34.0 67.9 46.8 FINAL Marcelo Mahmoods B&Whole Blood [facility] ([facility]), [address], [address] [facility] [place] [facility] 02/15 CBC w/ auto diff LY % % 21.8 53.1 37.7 FINAL Marcelo Mahmoods B&Whole Blood [facility] ([facility]), [address], [address] [facility] [place] [address] 02/15 CBC w/ auto diff MO % % 5.3 12.2 10.9 FINAL Marcelo Mahmoods B&Whole Blood [facility] ([facility]), [address], [place] [facility] [place] [address] 02/15 CBC w/ auto diff EO % % 0.8 7.0 4.1 FINAL Marcelo Mahmoods B&Whole Blood [facility] ([facility]), [address], [address] [facility] [place] [address] 02/15 CBC w/ auto diff BA % % 0.2 1.2 0.5 FINAL Marcelo Mahmoods B&Whole Blood [facility] ([facility]), [address], [address] [facility] [place] [address] 02/15 CBC w/ auto diff RBC 10*6/u L 4.63 6.08 5.33 FINAL Marcelo Olson B&Whole Blood [facility] ([facility]), [address], [address] [facility] [place] [facility] 02/15 CBC w/ auto diff HGB g/dL 13.7 17.5 17.4 FINAL Marcelo Olson B&Whole Blood [facility] ([facility]), [address], [address] [facility] [place] [facility] 02/15 CBC w/ auto diff HCT % 40.1 51.0 50.4 FINAL Marcelo Olson B&Whole Blood [facility] ([facility]), [address], [address] [place] [address] 02/15 CBC w/ auto diff MCV fL 79.0 92.2 94.6 High FINAL Marcelo Mahmoods B&Whole Blood [facility] ([facility]), [address], [address] [place] [address] 02/15 CBC w/ auto diff MCH pg 25.7 32.2 32.6 High FINAL Marcelo Olson B&Whole Blood [facility] ([facility]), [address], [address] [place] [address] 02/15 CBC w/ auto diff MCHC g/dL 32.3 36.5 34.5 FINAL Marcelo Olson B&Whole Blood [facility] ([facility]), [address], [address] [place] [address] 02/15 CBC w/ auto diff RDW-C V, % % 11.6 14.4 14.0 FINAL Marcelo Olson B&Whole Blood [facility] ([facility]), [address], [address] [facility] [place] [facility] 02/15 CBC w/ auto diff PLT 10*3/u L 163.0 337.0 172.0 FINAL Marcelo Mahmoods B&Whole Blood [facility] ([facility]), [address], [address] [facility] [place] [address] 05/31 CBC w/ auto diff WBC 10*3/u L 4.2 9.1 10.4 High FINAL Marcelo Mahmoods B&Whole Blood [facility] ([facility]), [address], [address] [facility] [place] [facility] 05/31 CBC w/ auto diff Cristobal # (ANC) 10*3/u L 1.78 5.38 5.26 FINAL Marcelo Olson B&Whole Blood [facility] (T), [address], [address] [place] [address] 05/31 CBC w/ auto diff LY # 10*3/u L 1.32 3.57 3.84 High FINAL Marcelo Olson B&Whole Blood [facility] (T), [address], [address] [place] [address] 05/31 CBC w/ auto diff MO # 10*3/u L 0.3 0.82 0.94 High FINAL Marcelo Olson B&Whole Blood [facility] ([facility]), [address], [address] [place] [address] 05/31 CBC w/ auto diff EO # 10*3/u lL 0.04 0.54 0.30 FINAL Marcelo Olson B&Whole Blood [facility] ([facility]), [address], [address] [place] [address] 05/31 CBC w/ auto diff BA # 10*3/u L 0.01 0.08 0.03 FINAL Marcelo Olson B&Whole Blood [facility] ([facility]), [address], [address] [place] [address] 05/31 CBC w/ auto diff Cristobal % % 34.0 67.9 50.7 FINAL Marcelo Olson B&Whole Blood [facility] ([facility]), [address], [address] [place] [address] 05/31 CBC w/ auto diff LY % % 21.8 53.1 37.0 FINAL Marcelo Olson B&Whole Blood [facility] (T), [address], [address] [place] [address] 05/31 CBC w/ auto diff MO % % 5.3 12.2 9.1 FINAL Marcelo Mahmoods B&Whole Blood [facility] ([facility]), [address], [address] [place] [address] 05/31 CBC w/ auto diff EO % % 0.8 7.0 2.9 FINAL Marcelo Mahmoods B&Whole Blood [facility] ([facility]), [address], [address] [place] [address] 05/31 CBC w/ auto diff BA % % 0.2 1.2 0.3 FINAL Marcelo Mahmoods B&Whole Blood [facility] ([facility]), [address], [address] [place] [address] 05/31 CBC w/ auto diff RBC 10*6/u L 4.63 6.08 5.01 FINAL Marcelo Mahmoods B&Whole Blood [facility] ([facility]), [address], [address] [place] [address] 05/31 CBC w/ auto diff HGB g/dL 13.7 17.5 16.4 FINAL Marcelo Mahmoods B&Whole Blood [facility] ([facility]), [address], [address] [place] [address] 05/31 CBC w/ auto diff HCT % 40.1 51.0 47.5 FINAL Marcelo Mahmoods B&Whole Blood [facility] ([facility]), [address], [address] [place] [address] 05/31 CBC w/ auto diff MCV fL 79.0 92.2 94.8 High FINAL Marcelo Mahmoods B&Whole Blood [facility] ([facility]), [address], [address] [place] [address] 05/31 CBC w/ auto diff MCH pg 25.7 32.2 32.7 High FINAL [facility] B&Whole Blood [facility] ([facility]), [address], [address] [place] [address] 05/31 CBC w/ auto diff MCHC g/dL 32.3 36.5 34.5 FINAL Marcelo Mahmoods B&Whole Blood [facility] ([facility]), [address], [address] [place] [address] 05/31 CBC w/ auto diff RDW-C V, % % 11.6 14.4 13.8 FINAL Marcelo Mahmoods B&Whole Blood [facility] ([facility]), [address], [address] [place] [address] 05/31 CBC w/ auto diff PLT 10*3/u L 163.0 337.0 161.0 Low FINAL Marcelo Mahmoods B&Whole Blood [facility] ([facility]), [address], [address] [place] [address] 06/21 CBC w/ auto diff WBC 10*3/u L 4.2 9.1 14.1 High FINAL Marcelo [facility] ([facility]), [address], [address] [place] [address] 06/21 CBC w/ auto diff Cristobal # (ANC) 10*3/u L 1.78 5.38 10.63 High FINAL Marcelo [facility] ([facility]), [address], [address] [place] [address] 06/21 CBC w/ auto diff LY # 10*3/u L 1.32 3.57 2.09 FINAL Marcelo [facility] ([facility]), [address], [address] [place] [address] 06/21 CBC w/ auto diff MO # 10*3/u L 0.3 0.82 1.34 High FINAL Marcelo [facility] ([facility]), [address], [address] [place] [address] 06/21 CBC w/ auto diff EO # 10*3/u lL 0.04 0.54 0.03 Low FINAL Marcelo [facility] ([facility]), [address], [address] [place] [address] 06/21 CBC w/ auto diff BA # 10*3/u L 0.01 0.08 0.02 FINAL Marcelo [facility] ([facility]), [address], [address] [place] [address] 06/21 CBC w/ auto diff Cristobal % % 34.0 67.9 75.4 High FINAL Marcelo [facility] ([facility]), [address], [address] [place] [address] 06/21 CBC w/ auto diff LY % % 21.8 53.1 14.8 Low FINAL Marcelo [facility] ([facility]), [address], [address] [place] [address] 06/21 CBC w/ auto diff MO % % 5.3 12.2 9.5 FINAL Marcelo [facility] ([facility]), [address], [address] [place] [address] 06/21 CBC w/ auto diff EO % % 0.8 7.0 0.2 Low FINAL [facility] ([facility]), [address], [address] [place] [address] 06/21 CBC w/ auto diff BA % % 0.2 1.2 0.1 Low FINAL [facility] ([facility]), [address], [address] [place] [address] 06/21 CBC w/ auto diff RBC 10*6/u L 4.63 6.08 4.90 FINAL [facility] ([facility]), [address], [address] [place] [address] 06/21 CBC w/ auto diff HGB g/dL 13.7 17.5 16.0 FINAL [facility] ([facility]), [address], [address] [place] [address] 06/21 CBC w/ auto diff HCT % 40.1 51.0 47.5 FINAL [facility] ([facility]), [address], [address] [place] [address] 06/21 CBC w/ auto diff MCV fL 79.0 92.2 96.9 High FINAL [facility] ([facility]), [address], [address] [place] [address] 06/21 CBC w/ auto diff MCH pg 25.7 32.2 32.7 High FINAL [facility] ([facility]), [address], [address] [place] [address] 06/21 CBC w/ auto diff MCHC g/dL 32.3 36.5 33.7 FINAL [facility] ([facility]), [address], [address] [place] [address] 06/21 CBC w/ auto diff RDW-C V, % % 11.6 14.4 14.0 FINAL [facility] ([facility]), [address], [address] [place] [address] 06/21 CBC w/ auto diff PLT 10*3/u L 163.0 337.0 185.[address] 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 Medications Date Name Route Dose [...] Oral orally 5000.0 mcg daily active 12/22 [place] 3-DHA-E PA-Fish Oil Oral Liquid 1,600 mg-500 [...] Print Location: Unknown Date/Time Printed: 10/19/2025 17:05 (Lauren/[facility]) Patient: VALERIE PUENTES Sex: Male [...] Selected Billing Code(s): PHLEBOTOMY THERAPEUTIC SEPARATE PROCEDURE (14102) Entered By Barbara Casas RN; Incident to Marcelo Olson MD * Nurse Note for: 09-NOV-19 [facility] Nurse Note Print Location: Unknown Date/Time Printed: 10/19/2025 17:05 (Lauren/[facility]) Patient: VALERIE PUENTES Sex: Male [...] Selected Billing Code(s): PHLEBOTOMY THERAPEUTIC SEPARATE PROCEDURE (45337) Entered By Ju Gupta RN; Incident to Marcelo Olson MD * Nurse Note for: 20-JUL-19 [facility] Nurse Note Print Location: Unknown Date/Time Printed: 10/19/2025 17:05 (Lauren/[facility]) Patient: VALERIE PUENTES Sex: Male [...] Selected Billing Code(s): PHLEBOTOMY THERAPEUTIC SEPARATE PROCEDURE (65150) Entered By Barbara Garcia RN; Incident to Marcelo Olson MD
--- OUTSIDE RECORDS SUMMARY | 2025-10-19 17:06 | XMS_ITS ---
Author Name Interface, [id number] lity Address [address] [place] [address] Organization [facility] Address [address] [place] [address] Allergies and Adverse Reactions Medication/Group Name Reaction [...] 9.1 High FINAL Marcelo Olson B&Whole Blood [facility] ([facility]), [address], [address] [place] [address] 07/20 CBC w/ auto diff Cristobal # (ANC) 10*3/u L 1.78 5.38 4.47 FINAL Marcelo Olson B&Whole Blood [facility] ([facility]), [address], Suite [facility] [place] [facility] 07/20 CBC w/ auto diff LY # 10*3/u L 1.32 3.57 3.40 FINAL Marcelo Olson B&Whole Blood [facility] ([facility]), [address], [address] [place], [place] [id number] 07/20 CBC w/ auto diff MO # 10*3/u L 0.3 0.82 0.80 FINAL Marcelo Olson B&Whole Blood [facility] ([facility]), [address], Suite [facility] [place] [address] 07/20 CBC w/ auto diff EO # 10*3/u lL 0.04 0.54 0.38 FINAL Marcelo Olson B&Whole Blood [facility] ([facility]), [address], Suite [facility] [place] [address] 07/20 CBC w/ auto diff BA # 10*3/u L 0.01 0.08 0.03 FINAL Marcelo Funez&Whole Blood [facility] (T), [address], [address] [place] [address] 07/20 CBC w/ auto diff Cristobal % % 34.0 67.9 49.3 FINAL Marcelo Herms B&Whole Blood [facility] ([facility]), [address], [address] [place] [address] 07/20 CBC w/ auto diff LY % % 21.8 53.1 37.4 FINAL Marcelo Herms B&Whole Blood [facility] (T), [address], [address] [place] [address] 07/20 CBC w/ auto diff MO % % 5.3 12.2 8.8 FINAL Marcelo Herms B&Whole Blood [facility] (T), [address], [address] [place] [address] 07/20 CBC w/ auto diff EO % % 0.8 7.0 4.2 FINAL Marcelo Herms B&Whole Blood [facility] (T), [address], [address] [place] [address] 07/20 CBC w/ auto diff BA % % 0.2 1.2 0.3 FINAL Marcelo Herms B&Whole Blood [facility] (T), [address], [address] [place] [address] 07/20 CBC w/ auto diff RBC 10*6/u L 4.63 6.08 5.60 FINAL Marcelo Herms B&Whole Blood [facility] (T), [address], [address] [place] [address] 07/20 CBC w/ auto diff HGB g/dL 13.7 17.5 18.2 High FINAL Marcelo Herms B&Whole Blood [facility] (T), [address], [address] [place] [address] 07/20 CBC w/ auto diff HCT % 40.1 51.0 52.8 High FINAL Marcelo Herms B&Whole Blood [facility] ([facility]), [address], [address] [place] [address] 07/20 CBC w/ auto diff MCV fL 79.0 92.2 94.3 High FINAL Marcelo Herms B&Whole Blood [facility] ([facility]), [address], [address] [place] [address] 07/20 CBC w/ auto diff MCH pg 25.7 32.2 32.5 High FINAL Marcelo Herms B&Whole Blood [facility] ([facility]), [address], [address] [place] [address] 07/20 CBC w/ auto diff MCHC g/dL 32.3 36.5 34.5 FINAL Marcelo Herms B&Whole Blood [facility] ([facility]), [address], [address] [place] [address] 07/20 CBC w/ auto diff RDW-C V, % % 11.6 14.4 12.5 FINAL Marcelo Herms B&Whole Blood [facility] ([facility]), [address], [address] [place] [address] 07/20 CBC w/ auto diff PLT 10*3/u L 163.0 337.0 160.0 Low FINAL Marcelo Herms B&Whole Blood [facility] ([facility]), [address], [address] [place] [address] 11/09 CBC w/ auto diff WBC 10*3/u [...] Blood 5 02/12 Lab Repor t See digital product manager d 02/15 CBC w/ auto diff WBC 10*3/u L 4.2 9.1 8.8 FINAL Marcelo Olson B&Whole Blood [facility] ([facility]), [address], [address] [place] [address] 02/15 CBC w/ auto diff Cristobal # (ANC) 10*3/u L 1.78 5.38 4.12 FINAL Marcelo Mahmoods B&Whole Blood [facility] ([facility]), [address], Suite [facility] [place] [address] 02/15 CBC w/ auto diff LY # 10*3/u L 1.32 3.57 3.32 FINAL Marcelo Mahmoods B&Whole Blood [facility] ([facility]), [address], Suite [facility] [place] [address] 02/15 CBC w/ auto diff MO # 10*3/u L 0.3 0.82 0.96 High FINAL Marcelo Mahmoods B&Whole Blood [facility] ([facility]), [address], Suite [facility] [place] [address] 02/15 CBC w/ auto diff EO # 10*3/u lL 0.04 0.54 0.36 FINAL Marcelo Mahmoods B&Whole Blood [facility] (T), [address], Suite [facility] [place] [address] 02/15 CBC w/ auto diff BA # 10*3/u L 0.01 0.08 0.04 FINAL Marcelo Mahmoods B&Whole Blood [facility] ([facility]), [address], [address] [facility] [place] [address] 02/15 CBC w/ auto diff Cristobal % % 34.0 67.9 46.8 FINAL Marcelo Mahmoods B&Whole Blood [facility] ([facility]), [address], [address] [facility] [place] [facility] 02/15 CBC w/ auto diff LY % % 21.8 53.1 37.7 FINAL Marcelo Mahmoods B&Whole Blood [facility] ([facility]), [address], Suite [facility] [place] [address] 02/15 CBC w/ auto diff MO % % 5.3 12.2 10.9 FINAL Marcelo Mahmoods B&Whole Blood [facility] ([facility]), [address], Suite [facility] [place] [address] 02/15 CBC w/ auto diff EO % % 0.8 7.0 4.1 FINAL Marcelo Mahmoods B&Whole Blood [facility] ([facility]), [address], Suite [facility] [place] [address] 02/15 CBC w/ auto diff BA % % 0.2 1.2 0.5 FINAL Marcelo Mahmoods B&Whole Blood [facility] ([facility]), [address], Suite [facility] [place] [address] 02/15 CBC w/ auto diff RBC 10*6/u L 4.63 6.08 5.33 FINAL Marcelo Olson B&Whole Blood [facility] ([facility]), [address], Suite [facility] [place] [facility] 02/15 CBC w/ auto diff HGB g/dL 13.7 17.5 17.4 FINAL Marcelo Olson B&Whole Blood [facility] ([facility]), [address], Suite [facility] [place] [facility] 02/15 CBC w/ auto diff HCT % 40.1 51.0 50.4 FINAL Marcelo Olson B&Whole Blood [facility] ([facility]), [address], [address] [place] [address] 02/15 CBC w/ auto diff MCV fL 79.0 92.2 94.6 High FINAL Marcelo Mahmoods B&Whole Blood [facility] ([facility]), [address], [address] [place] [address] 02/15 CBC w/ auto diff MCH pg 25.7 32.2 32.6 High FINAL Marcelo Olson B&Whole Blood [facility] ([facility]), [address], [address] [place] [address] 02/15 CBC w/ auto diff MCHC g/dL 32.3 36.5 34.5 FINAL Marcelo Olson B&Whole Blood [facility] ([facility]), [address], [address] [place] [address] 02/15 CBC w/ auto diff RDW-C V, % % 11.6 14.4 14.0 FINAL Marcelo Olson B&Whole Blood [facility] ([facility]), [address], Suite [facility] [place] [facility] 02/15 CBC w/ auto diff PLT 10*3/u L 163.0 337.0 172.0 FINAL Marcelo Mahmoods B&Whole Blood [facility] ([facility]), [address], Suite [facility] [place] [address] 05/31 CBC w/ auto diff WBC 10*3/u L 4.2 9.1 10.4 High FINAL Marcelo Mahmoods B&Whole Blood [facility] ([facility]), [address], Suite [facility] [place] [facility] 05/31 CBC w/ auto diff Cristobal # (ANC) 10*3/u L 1.78 5.38 5.26 FINAL Marcelo Olson B&Whole Blood [facility] (T), [address], [address] [place] [address] 05/31 CBC w/ auto diff LY # 10*3/u L 1.32 3.57 3.84 High FINAL Marcelo Olson B&Whole Blood [facility] (T), [address], [address] [place] [address] 05/31 CBC w/ auto diff MO # 10*3/u L 0.3 0.82 0.94 High FINAL Marcelo Olson B&Whole Blood [facility] ([facility]), [address], [address] [place] [address] 05/31 CBC w/ auto diff EO # 10*3/u lL 0.04 0.54 0.30 FINAL Marcelo Olson B&Whole Blood [facility] ([facility]), [address], [address] [place] [address] 05/31 CBC w/ auto diff BA # 10*3/u L 0.01 0.08 0.03 FINAL Marcelo Olson B&Whole Blood [facility] ([facility]), [address], [address] [place] [address] 05/31 CBC w/ auto diff Cristobal % % 34.0 67.9 50.7 FINAL Marcelo Olson B&Whole Blood [facility] ([facility]), [address], [address] [place] [address] 05/31 CBC w/ auto diff LY % % 21.8 53.1 37.0 FINAL Marcelo Olson B&Whole Blood [facility] (T), [address], [address] [place] [address] 05/31 CBC w/ auto diff MO % % 5.3 12.2 9.1 FINAL Marcelo Mahmoods B&Whole Blood [facility] ([facility]), [address], [address] [place] [address] 05/31 CBC w/ auto diff EO % % 0.8 7.0 2.9 FINAL Marcelo Mahmoods B&Whole Blood [facility] ([facility]), [address], [address] [place] [address] 05/31 CBC w/ auto diff BA % % 0.2 1.2 0.3 FINAL Marcelo Mahmoods B&Whole Blood [facility] ([facility]), [address], [address] [place] [address] 05/31 CBC w/ auto diff RBC 10*6/u L 4.63 6.08 5.01 FINAL Marcelo Mahmoods B&Whole Blood [facility] ([facility]), [address], [address] [place] [address] 05/31 CBC w/ auto diff HGB g/dL 13.7 17.5 16.4 FINAL Marcelo Mahmoods B&Whole Blood [facility] ([facility]), [address], [address] [place] [address] 05/31 CBC w/ auto diff HCT % 40.1 51.0 47.5 FINAL Marcelo Mahmoods B&Whole Blood [facility] ([facility]), [address], [address] [place] [address] 05/31 CBC w/ auto diff MCV fL 79.0 92.2 94.8 High FINAL Marcelo Mahmoods B&Whole Blood [facility] ([facility]), [address], [address] [place] [address] 05/31 CBC w/ auto diff MCH pg 25.7 32.2 32.7 High FINAL [facility] B&Whole Blood [facility] ([facility]), [address], [address] [place] [address] 05/31 CBC w/ auto diff MCHC g/dL 32.3 36.5 34.5 FINAL Marcelo Mahmoods B&Whole Blood [facility] ([facility]), [address], [address] [place] [address] 05/31 CBC w/ auto diff RDW-C V, % % 11.6 14.4 13.8 FINAL Marcelo Mahmoods B&Whole Blood [facility] ([facility]), [address], [address] [place] [address] 05/31 CBC w/ auto diff PLT 10*3/u L 163.0 337.0 161.0 Low FINAL Marcelo Mahmoods B&Whole Blood [facility] ([facility]), [address], [address] [place] [address] 06/21 CBC w/ auto diff WBC 10*3/u L 4.2 9.1 14.1 High FINAL Marcelo [facility] ([facility]), [address], [address] [place] [address] 06/21 CBC w/ auto diff Cristobal # (ANC) 10*3/u L 1.78 5.38 10.63 High FINAL Marcelo [facility] ([facility]), [address], [address] [place] [address] 06/21 CBC w/ auto diff LY # 10*3/u L 1.32 3.57 2.09 FINAL Marcelo [facility] ([facility]), [address], [address] [place] [address] 06/21 CBC w/ auto diff MO # 10*3/u L 0.3 0.82 1.34 High FINAL Marcelo [facility] ([facility]), [address], [address] [place] [address] 06/21 CBC w/ auto diff EO # 10*3/u lL 0.04 0.54 0.03 Low FINAL Marcelo [facility] ([facility]), [address], [address] [place] [address] 06/21 CBC w/ auto diff BA # 10*3/u L 0.01 0.08 0.02 FINAL Marcelo [facility] ([facility]), [address], [address] [place] [address] 06/21 CBC w/ auto diff Cristobal % % 34.0 67.9 75.4 High FINAL Marcelo [facility] ([facility]), [address], [address] [place] [address] 06/21 CBC w/ auto diff LY % % 21.8 53.1 14.8 Low FINAL Marcelo [facility] ([facility]), [address], [address] [place] [address] 06/21 CBC w/ auto diff MO % % 5.3 12.2 9.5 FINAL Marcelo [facility] ([facility]), [address], [address] [place] [address] 06/21 CBC w/ auto diff EO % % 0.8 7.0 0.2 Low FINAL [facility] ([facility]), [address], [address] [place] [address] 06/21 CBC w/ auto diff BA % % 0.2 1.2 0.1 Low FINAL [facility] ([facility]), [address], [address] [place] [address] 06/21 CBC w/ auto diff RBC 10*6/u L 4.63 6.08 4.90 FINAL [facility] ([facility]), [address], [address] [place] [address] 06/21 CBC w/ auto diff HGB g/dL 13.7 17.5 16.0 FINAL [facility] ([facility]), [address], [address] [place] [address] 06/21 CBC w/ auto diff HCT % 40.1 51.0 47.5 FINAL [facility] ([facility]), [address], [address] [place] [address] 06/21 CBC w/ auto diff MCV fL 79.0 92.2 96.9 High FINAL [facility] ([facility]), [address], [address] [place] [address] 06/21 CBC w/ auto diff MCH pg 25.7 32.2 32.7 High FINAL [facility] ([facility]), [address], [address] [place] [address] 06/21 CBC w/ auto diff MCHC g/dL 32.3 36.5 33.7 FINAL [facility] ([facility]), [address], [address] [place] [address] 06/21 CBC w/ auto diff RDW-C V, % % 11.6 14.4 14.0 FINAL [facility] ([facility]), [address], [address] [place] [address] 06/21 CBC w/ auto diff PLT 10*3/u L 163.0 337.0 185.0 FINAL Marceol Olson [facility] [address] Jennifer ([facility]), [address], [address] [facility] [address] 07/23 Lab Repor t See digital product manager d Medications Date Name Route Dose [...] Oral orally 5000.0 mcg daily active 12/22 [place] 3-DHA-E PA-Fish Oil Oral Liquid 1,600 mg-500 [...] Note Print Location: Unknown Date/Time Printed: 10/19/2025 17:06 ([facility]) Patient: VALERIE PUENTES Sex: Male : [...] Selected Billing Code(s): PHLEBOTOMY THERAPEUTIC SEPARATE PROCEDURE (33935) Entered By Barbara Casas RN; Incident to Marcelo Olson MD * Nurse Note for: 09-NOV-19 [facility] Nurse Note Print Location: Unknown Date/Time Printed: 10/19/2025 17:06 ([facility]) Patient: VALERIE PUENTES Sex: Male : [...] Selected Billing Code(s): PHLEBOTOMY THERAPEUTIC SEPARATE PROCEDURE (00543) Entered By Ju Gupta RN; Incident to Marcelo Olson MD * Nurse Note for: 20-JUL-19 [facility] Nurse Note Print Location: Unknown Date/Time Printed: 10/19/2025 17:06 ([facility]) Patient: VALERIE PUENTES Sex: Male : [...] Selected Billing Code(s): PHLEBOTOMY THERAPEUTIC SEPARATE PROCEDURE (22796) Entered By Barbara Garcia RN; Incident to Marcelo Olson MD
--- OUTSIDE RECORDS SUMMARY | 2025-10-19 17:06 | XMS_ITS | CCD ---
Author Name Interface, [id number] lity Address [address] [id number] Organization [facility] Address [address] [place] [id number] Care Team Providers Care Adjunct Phlebotomy Instructor Name Role Phone Whitney HUGHES, Marcelo Munguia [...] Oral orally 25.0 mg daily active 12/22 [place] 3-DHA-E PA-Fish Oil Oral Liquid 1,600 mg-500 [...]
--- OUTSIDE RECORDS SUMMARY | 2025-10-19 17:06 | XMS_ITS | CCD ---
Author Name Interface, [id number] lity Address [address] [id number] Organization [facility] Address [address] [place] [id number] Care Team Providers Care Human Resource Manager Name Role Phone Whitney HUGHES, Marcelo Munguia [...] Oral orally 25.0 mg daily active 12/22 [place] 3-DHA-E PA-Fish Oil Oral Liquid 1,600 mg-500 [...]
--- OUTSIDE RECORDS SUMMARY | 2025-10-19 17:06 | XMS_ITS ---
Author Name Interface, [id number] lity Address [address] [place] [address] Organization [facility] Address [address] [place] [address] Allergies and Adverse Reactions Medication/Group Name Reaction [...] 9.1 8.8 FINAL Marcelo Olson B&Whole Blood [facility] ([facility]), [address], [address] [place] [address] 02/15 CBC w/ auto diff Cristobal # (ANC) 10*3/u L 1.78 5.38 4.12 FINAL Marcelo Olson B&Whole Blood [facility] ([facility]), [address], [address] [place] [address] 02/15 CBC w/ auto diff LY # 10*3/u L 1.32 3.57 3.32 FINAL Marcelo Olson B&Whole Blood [facility] ([facility]), [address], [address] [place] [address] 02/15 CBC w/ auto diff MO # 10*3/u L 0.3 0.82 0.96 High FINAL Marcelo Olson B&Whole Blood [facility] ([facility]), [address], [address] [place] [address] 02/15 CBC w/ auto diff EO # 10*3/u lL 0.04 0.54 0.36 FINAL Marcelo Olson B&Whole Blood [facility] ([facility]), [address], [address] [place] [address] 02/15 CBC w/ auto diff BA # 10*3/u L 0.01 0.08 0.04 FINAL Marcelo Olson B&Whole Blood [facility] ([facility]), [address], [address] [place] [address] 02/15 CBC w/ auto diff Cristobal % % 34.0 67.9 46.8 FINAL Marcelo Olson B&Whole Blood [facility] ([facility]), [address], [address] [place] [address] 02/15 CBC w/ auto diff LY % % 21.8 53.1 37.7 FINAL Macrelo Mahmoods B&Whole Blood [facility] ([facility]), [address], [address] [facility] [place] [address] 02/15 CBC w/ auto diff MO % % 5.3 12.2 10.9 FINAL Marcelo Mahmoods B&Whole Blood [facility] ([facility]), [address], [address] [facility] [place] [address] 02/15 CBC w/ auto diff EO % % 0.8 7.0 4.1 FINAL Marcelo Olson B&Whole Blood [facility] ([facility]), [address], [address] [facility] [place] [facility] 02/15 CBC w/ auto diff BA % % 0.2 1.2 0.5 FINAL Marcelo Mahmoods B&Whole Blood [facility] (T), [address], [address] [facility] [place] [facility] 02/15 CBC w/ auto diff RBC 10*6/u L 4.63 6.08 5.33 FINAL Marcelo Mahmoods B&Whole Blood [facility] (T), [address], [address] [facility] [place] [facility] 02/15 CBC w/ auto diff HGB g/dL 13.7 17.5 17.4 FINAL Marcelo Olson B&Whole Blood [facility] (T), [address], [address] [facility] [place] [facility] 02/15 CBC w/ auto diff HCT % 40.1 51.0 50.4 FINAL Marcelo Mahmoods B&Whole Blood [facility] (T), [address], [address] [facility] [place] [facility] 02/15 CBC w/ auto diff MCV fL 79.0 92.2 94.6 High FINAL Marcelo Mahmoods B&Whole Blood [facility] ([facility]), [address], [address] [facility] [place] [address] 02/15 CBC w/ auto diff MCH pg 25.7 32.2 32.6 High FINAL Marcelo Mahmoods B&Whole Blood [facility] ([facility]), [address], [address] [facility] [place] [address] 02/15 CBC w/ auto diff MCHC g/dL 32.3 36.5 34.5 FINAL Marcelo Mahmoods B&Whole Blood [facility] ([facility]), [address], [address] [place] [address] 02/15 CBC w/ auto diff RDW-C V, % % 11.6 14.4 14.0 FINAL Marcelo Mahmoods B&Whole Blood [facility] (T), [address], [address] [place] [address] 02/15 CBC w/ auto diff PLT 10*3/u L 163.0 337.0 172.0 FINAL Marcelo Mahmoods B&Whole Blood [facility] ([facility]), [address], [address] [place] [address] 05/31 CBC w/ auto diff WBC 10*3/u L 4.2 9.1 10.4 High FINAL Marcelo Mahmoods B&Whole Blood [facility] ([facility]), [address], [address] [place] [address] 05/31 CBC w/ auto diff Cristobal # (ANC) 10*3/u L 1.78 5.38 5.26 FINAL Marcelo Mahmoods B&Whole Blood [facility] ([facility]), [address], [address] [place] [address] 05/31 CBC w/ auto diff LY # 10*3/u L 1.32 3.57 3.84 High FINAL Marcelo Mahmoods B&Whole Blood [facility] ([facility]), [address], [address] [place] [address] 05/31 CBC w/ auto diff MO # 10*3/u L 0.3 0.82 0.94 High FINAL Marcelo Mahmoods B&Whole Blood [facility] ([facility]), [address], [address] [place] [address] 05/31 CBC w/ auto diff EO # 10*3/u lL 0.04 0.54 0.30 FINAL Marcelo Mahmoods B&Whole Blood [facility] ([facility]), [address], [address] [place] [address] 05/31 CBC w/ auto diff BA # 10*3/u L 0.01 0.08 0.03 FINAL Marcelo Herms B&Whole Blood [facility] ([facility]), [address], [address] [place] [address] 05/31 CBC w/ auto diff Cristobal % % 34.0 67.9 50.7 FINAL Marcelo Herms B&Whole Blood [facility] (T), [address], [address] [facility] [place] [facility] 05/31 CBC w/ auto diff LY % % 21.8 53.1 37.0 FINAL Marcelo Olson B&Whole Blood [facility] (T), [address], [address] [place] [address] 05/31 CBC w/ auto diff MO % % 5.3 12.2 9.1 FINAL Marcelo Olson B&Whole Blood [facility] (T), [address], [address] [place] [address] 05/31 CBC w/ auto diff EO % % 0.8 7.0 2.9 FINAL Marcelo Olson B&Whole Blood [facility] (T), [address], [address] [place] [address] 05/31 CBC w/ auto diff BA % % 0.2 1.2 0.3 FINAL Marcelo Olson B&Whole Blood [facility] (T), [address], [address] [place] [address] 05/31 CBC w/ auto diff RBC 10*6/u L 4.63 6.08 5.01 FINAL Marcelo Olson B&Whole Blood [facility] (T), [address], [address] [place] [address] 05/31 CBC w/ auto diff HGB g/dL 13.7 17.5 16.4 FINAL Marcelo Olson B&Whole Blood [facility] (T), [address], [address] [place] [address] 05/31 CBC w/ auto diff HCT % 40.1 51.0 47.5 FINAL Marcelo Olson B&Whole Blood [facility] (T), [address], [address] [place] [address] 05/31 CBC w/ auto diff MCV fL 79.0 92.2 94.8 High FINAL Marcelo Olson B&Whole Blood [facility] (T), [address], [address] [place] [address] 05/31 CBC w/ auto diff MCH pg 25.7 32.2 32.7 High FINAL Marcelo Olson B&Whole Blood [facility] (T), [address], [address] [place] [address] 05/31 CBC w/ auto diff MCHC g/dL 32.3 36.5 34.5 FINAL Marcelo [facility] B&Whole Blood [facility] ([facility]), [address], [address] [place] [address] 05/31 CBC w/ auto diff RDW-C V, % % 11.6 14.4 13.8 FINAL Marcelo [facility] B&Whole Blood [facility] ([facility]), [address], [address] [place] [address] 05/31 CBC w/ auto diff PLT 10*3/u L 163.0 337.0 161.0 Low FINAL [facility] B&Whole Blood [facility] ([facility]), [address], [address] [place] [address] 06/21 CBC w/ auto diff WBC 10*3/u L 4.2 9.1 14.1 High FINAL [facility] (T), [address], [address] [place] [address] 06/21 CBC w/ auto diff Cristobal # (ANC) 10*3/u L 1.78 5.38 10.63 High FINAL [facility] (T), [address], [address] [place] [address] 06/21 CBC w/ auto diff LY # 10*3/u L 1.32 3.57 2.09 FINAL [facility] (T), [address], [address] [place], [place] [id number] 06/21 CBC w/ auto diff MO # 10*3/u L 0.3 0.82 1.34 High FINAL [facility] ([facility]), [address], [address] [place], [place] [id number] 06/21 CBC w/ auto diff EO # 10*3/u lL 0.04 0.54 0.03 Low FINAL [facility] ([facility]), [address], [address] [facility] [address] 06/21 CBC w/ auto diff BA # 10*3/u L 0.01 0.08 0.02 FINAL [facility] ([facility]), [address], [address] [place] [address] 06/21 CBC w/ auto diff Cristobal % % 34.0 67.9 75.4 High FINAL Marcelo [facility] ([facility]), [address], [address] [place] [address] 06/21 CBC w/ auto diff LY % % 21.8 53.1 14.8 Low FINAL Marcelo [facility] ([facility]), [address], [address] [place] [address] 06/21 CBC w/ auto diff MO % % 5.3 12.2 9.5 FINAL Marcelo [facility] ([facility]), [address], [address] [place] [address] 06/21 CBC w/ auto diff EO % % 0.8 7.0 0.2 Low FINAL Marcelo [facility] ([facility]), [address], [address] [place] [address] 06/21 CBC w/ auto diff BA % % 0.2 1.2 0.1 Low FINAL Marcelo [facility] ([facility]), [address], [address] [place] [address] 06/21 CBC w/ auto diff RBC 10*6/u L 4.63 6.08 4.90 FINAL Marcelo [facility] ([facility]), [address], [address] [place] [address] 06/21 CBC w/ auto diff HGB g/dL 13.7 17.5 16.0 FINAL Marcelo [facility] ([facility]), [address], [address] [place] [address] 06/21 CBC w/ auto diff HCT % 40.1 51.0 47.5 FINAL Marcelo [facility] ([facility]), [address], [address] [place] [address] 06/21 CBC w/ auto diff MCV fL 79.0 92.2 96.9 High FINAL Marcelo [facility] ([facility]), [address], [address] [place] [address] 06/21 CBC w/ auto diff MCH pg 25.7 32.2 32.7 High FINAL [facility] ([facility]), [address], [address] [facility] [address] 06/21 CBC w/ auto diff MCHC g/dL 32.3 36.5 33.7 FINAL [facility] (T), [address], [address] [facility] [address] 06/21 CBC w/ auto diff RDW-C V, % % 11.6 14.4 14.0 FINAL [facility] (T), [address], [address] [facility] [address] 06/21 CBC w/ auto diff PLT 10*3/u L 163.0 337.0 185.0 FINAL [facility] ([facility]), [address], [address] [facility] [address] 07/23 Lab Repor t See zipper slide [...] Oral orally 5000.0 mcg daily active 12/22 [place] 3-DHA-E PA-Fish Oil Oral Liquid 1,600 mg-500 [...] Print Location: Unknown Date/Time Printed: 10/19/2025 17:06 (Lauren/[facility]) Patient: VALERIE PUENTES Sex: Male : [...] Selected Billing Code(s): PHLEBOTOMY THERAPEUTIC SEPARATE PROCEDURE (94597) Entered By Barbara Casas RN; Incident to Marcelo Olson MD
--- OUTSIDE RECORDS SUMMARY | 2025-10-19 17:06 | XMS_ITS ---
Author Name Interface, [id number] lity Address [address] [place] [address] Organization [facility] Address [address] [place] [address] Allergies and Adverse Reactions Medication/Group Name Reaction [...] Marcelo Olson B&Whole Blood [facility] ([facility]), [address], [address] [place] [address] 02/15 CBC w/ auto diff Cristobal # (ANC) 10*3/u L 1.78 5.38 4.12 FINAL Marcelo Olson B&Whole Blood [facility] ([facility]), [address] [place] [address] 02/15 CBC w/ auto diff LY # 10*3/u L 1.32 3.57 3.32 FINAL Marcelo Olson B&Whole Blood [facility] ([facility]), [address], [address] [place] [address] 02/15 CBC w/ auto diff MO # 10*3/u L 0.3 0.82 0.96 High FINAL Marcelo Olson B&Whole Blood [facility] ([facility]), [address], [address] [place] [address] 02/15 CBC w/ auto diff EO # 10*3/u lL 0.04 0.54 0.36 FINAL Marcelo Olson B&Whole Blood [facility] ([facility]), [address], [address] [place] [address] 02/15 CBC w/ auto diff BA # 10*3/u L 0.01 0.08 0.04 FINAL Marcelo Olson B&Whole Blood [facility] ([facility]), [address], [address] [place] [address] 02/15 CBC w/ auto diff Cristobal % % 34.0 67.9 46.8 FINAL Marcelo Olson B&Whole Blood [facility] ([facility]), [address], [address] [place] [address] 02/15 CBC w/ auto diff LY % % 21.8 53.1 37.7 FINAL Marcelo Olson B&Whole Blood [facility] (T), [address], [address] [facility] [place] [address] 02/15 CBC w/ auto diff MO % % 5.3 12.2 10.9 FINAL Marcelo Olson B&Whole Blood [facility] (T), [address], [address] [facility] [place] [facility] 02/15 CBC w/ auto diff EO % % 0.8 7.0 4.1 FINAL Marcelo Oslon B&Whole Blood [facility] (T), [address], [address] [facility] [place] [facility] 02/15 CBC w/ auto diff BA % % 0.2 1.2 0.5 FINAL Marcelo Olson B&Whole Blood [facility] ([facility]), [address], [address] [facility] [place] [facility] 02/15 CBC w/ auto diff RBC 10*6/u L 4.63 6.08 5.33 FINAL Marcelo Olson B&Whole Blood [facility] ([facility]), [address], [address] [facility] [place] [facility] 02/15 CBC w/ auto diff HGB g/dL 13.7 17.5 17.4 FINAL Marcelo Olson B&Whole Blood [facility] (T), [address], [address] [place] [address] 02/15 CBC w/ auto diff HCT % 40.1 51.0 50.4 FINAL Marcelo Olson B&Whole Blood [facility] (T), [address], [address] [facility] [place] [facility] 02/15 CBC w/ auto diff MCV fL 79.0 92.2 94.6 High FINAL Marcelo Olson B&Whole Blood [facility] ([facility]), [address], [address] [facility] [place] [facility] 02/15 CBC w/ auto diff MCH pg 25.7 32.2 32.6 High FINAL Marcelo Olson B&Whole Blood [facility] (T), [address], [address] [facility] [place] [facility] 02/15 CBC w/ auto diff MCHC g/dL 32.3 36.5 34.5 FINAL Marcelo Mahmoods B&Whole Blood [facility] (T), [address], [address] [facility] [place] [address] 02/15 CBC w/ auto diff RDW-C V, % % 11.6 14.4 14.0 FINAL Marcelo Mahmoods B&Whole Blood [facility] (T), [address], [address] [place] [address] 02/15 CBC w/ auto diff PLT 10*3/u L 163.0 337.0 172.0 FINAL Marcelo Mahmoods B&Whole Blood [facility] (T), [address], [address] [place] [address] 05/31 CBC w/ auto diff WBC 10*3/u L 4.2 9.1 10.4 High FINAL Marcelo Herms B&Whole Blood [facility] (T), [address], [address] [place] [address] 05/31 CBC w/ auto diff Cristobal # (ANC) 10*3/u L 1.78 5.38 5.26 FINAL Marcelo Mahmoods B&Whole Blood [facility] (T), [address], [address] [place] [address] 05/31 CBC w/ auto diff LY # 10*3/u L 1.32 3.57 3.84 High FINAL Marcelo Mahmoods B&Whole Blood [facility] (T), [address], [address] [place] [address] 05/31 CBC w/ auto diff MO # 10*3/u L 0.3 0.82 0.94 High FINAL Marcelo Herms B&Whole Blood [facility] (T), [address], [address] [place] [address] 05/31 CBC w/ auto diff EO # 10*3/u lL 0.04 0.54 0.30 FINAL Marcelo Herms B&Whole Blood [facility] ([facility]), [address], [address] [place] [address] 05/31 CBC w/ auto diff BA # 10*3/u L 0.01 0.08 0.03 FINAL Marcelo Herms B&Whole Blood [facility] (T), [address], [address] [place] [address] 05/31 CBC w/ auto diff Cristobal % % 34.0 67.9 50.7 FINAL Marcelo Herms B&Whole Blood [facility] ([facility]), [address], [address] [facility] [place] [address] 05/31 CBC w/ auto diff LY % % 21.8 53.1 37.0 FINAL Marcelo Olson B&Whole Blood [facility] ([facility]), [address], [address] [facility] [place] [facility] 05/31 CBC w/ auto diff MO % % 5.3 12.2 9.1 FINAL Marcelo Olson B&Whole Blood [facility] ([facility]), [address], [address] [facility] [place] [facility] 05/31 CBC w/ auto diff EO % % 0.8 7.0 2.9 FINAL Marcelo Olson B&Whole Blood [facility] ([facility]), [address], [address] [place] [address] 05/31 CBC w/ auto diff BA % % 0.2 1.2 0.3 FINAL Marcelo Olson B&Whole Blood [facility] (T), [address], [address] [place] [address] 05/31 CBC w/ auto diff RBC 10*6/u L 4.63 6.08 5.01 FINAL Marcelo Olsno B&Whole Blood [facility] (T), [address], [address] [place] [address] 05/31 CBC w/ auto diff HGB g/dL 13.7 17.5 16.4 FINAL Marcleo Olson B&Whole Blood [facility] ([facility]), [address], [address] [place] [address] 05/31 CBC w/ auto diff HCT % 40.1 51.0 47.5 FINAL Marcelo Olson B&Whole Blood [facility] ([facility]), [address], [address] [place] [address] 05/31 CBC w/ auto diff MCV fL 79.0 92.2 94.8 High FINAL Marcelo Mahmoods B&Whole Blood [facility] ([facility]), [address], [address] [place] [address] 05/31 CBC w/ auto diff MCH pg 25.7 32.2 32.7 High FINAL Marcelo Mahmoods B&Whole Blood [facility] ([facility]), [address], [address] [place] [address] 05/31 CBC w/ auto diff MCHC g/dL 32.3 36.5 34.5 FINAL [facility] B&Whole Blood [facility] (T), [address], [address] [place] [address] 05/31 CBC w/ auto diff RDW-C V, % % 11.6 14.4 13.8 FINAL [facility] B&Whole Blood [facility] (T), [address], [address] [place] [address] 05/31 CBC w/ auto diff PLT 10*3/u L 163.0 337.0 161.0 Low FINAL [facility] B&Whole Blood [facility] ([facility]), [address], [address] [place] [address] 06/21 CBC w/ auto diff WBC 10*3/u L 4.2 9.1 14.1 High FINAL [facility] ([facility]), [address], [address] [place] [address] 06/21 CBC w/ auto diff Cristobal # (ANC) 10*3/u L 1.78 5.38 10.63 High FINAL [facility] ([facility]), [address], [address] [place] [address] 06/21 CBC w/ auto diff LY # 10*3/u L 1.32 3.57 2.09 FINAL [facility] ([facility]), [address], [address] [place] [address] 06/21 CBC w/ auto diff MO # 10*3/u L 0.3 0.82 1.34 High FINAL [facility] ([facility]), [address], [address] [place] [address] 06/21 CBC w/ auto diff EO # 10*3/u lL 0.04 0.54 0.03 Low FINAL [facility] ([facility]), [address], [address] [place] [address] 06/21 CBC w/ auto diff BA # 10*3/u L 0.01 0.08 0.02 FINAL [facility] ([facility]), [address], [address] [place] [address] 06/21 CBC w/ auto diff Cristobal % % 34.0 67.9 75.4 High FINAL [facility] ([facility]), [address], [address] [place] [address] 06/21 CBC w/ auto diff LY % % 21.8 53.1 14.8 Low FINAL [facility] ([facility]), [address], [address] [place] [address] 06/21 CBC w/ auto diff MO % % 5.3 12.2 9.5 FINAL [facility] ([facility]), [address], [address] [place] [address] 06/21 CBC w/ auto diff EO % % 0.8 7.0 0.2 Low FINAL [facility] ([facility]), [address], [address] [place] [address] 06/21 CBC w/ auto diff BA % % 0.2 1.2 0.1 Low FINAL [facility] ([facility]), [address], [address] [place] [address] 06/21 CBC w/ auto diff RBC 10*6/u L 4.63 6.08 4.90 FINAL [facility] ([facility]), [address], [address] [place] [address] 06/21 CBC w/ auto diff HGB g/dL 13.7 17.5 16.0 FINAL [facility] ([facility]), [address], [address] [place] [address] 06/21 CBC w/ auto diff HCT % 40.1 51.0 47.5 FINAL [facility] ([facility]), [address], [address] [place] [address] 06/21 CBC w/ auto diff MCV fL 79.0 92.2 96.9 High FINAL [facility] ([facility]), [address], [address] [place] [address] 06/21 CBC w/ auto diff MCH pg 25.7 32.2 32.7 High FINAL [facility] ([facility]), [address], [address] [facility] [address] 06/21 CBC w/ auto diff MCHC g/dL 32.3 36.5 33.7 FINAL [facility] ([facility]), [address], [address] [facility] [address] 06/21 CBC w/ auto diff RDW-C V, % % 11.6 14.4 14.0 FINAL [facility] ([facility]), [address], [address] [facility] [address] 06/21 CBC w/ auto diff PLT 10*3/u L 163.0 337.0 185.0 FINAL [facility] ([facility]), [address], [address] [facility] [address] 07/23 Lab Repor t See investment fund manager d Medications Date Name Route Dose [...] Oral orally 5000.0 mcg daily active 12/22 [place] 3-DHA-E PA-Fish Oil Oral Liquid 1,600 mg-500 [...] Print Location: Unknown Date/Time Printed: 10/19/2025 17:06 (Lauren/[facility]) Patient: VALERIE [...] Selected Billing Code(s): PHLEBOTOMY THERAPEUTIC SEPARATE PROCEDURE (86121) Entered By Barbara Casas RN; Incident to Marcelo Olson MD
--- OUTSIDE RECORDS SUMMARY | 2025-10-19 17:06 | XMS_ITS ---
Author Name Interface, [id number] lity Address [address] [place] [address] Organization [facility] Address [address] [place] [address] Allergies and Adverse Reactions Medication/Group Name Reaction [...] 9.1 High FINAL Marcelo Olson B&Whole Blood [facility] ([facility]), [address], [address] [place] [address] 07/20 CBC w/ auto diff Cristobal # (ANC) 10*3/u L 1.78 5.38 4.47 FINAL Marcelo Olson B&Whole Blood [facility] ([facility]), [address], Suite [facility] [place] [facility] 07/20 CBC w/ auto diff LY # 10*3/u L 1.32 3.57 3.40 FINAL Marcelo Olson B&Whole Blood [facility] ([facility]), [address], [address] [place], [place] [id number] 07/20 CBC w/ auto diff MO # 10*3/u L 0.3 0.82 0.80 FINAL Marcelo Olson B&Whole Blood [facility] ([facility]), [address], [address] [facility] [place] [place] [address] 07/20 CBC w/ auto diff EO # 10*3/u lL 0.04 0.54 0.38 FINAL Marcelo Olson B&Whole Blood [facility] ([facility]), [address], [address] [facility] [place] [address] 07/20 CBC w/ auto diff BA # 10*3/u L 0.01 0.08 0.03 FINAL Marcelo Funez&Whole Blood [facility] ([facility]), [address], [address] [place] [address] 07/20 CBC w/ auto diff Cristobal % % 34.0 67.9 49.3 FINAL Marcelo Herms B&Whole Blood [facility] ([facility]), [address], [address] [place] [address] 07/20 CBC w/ auto diff LY % % 21.8 53.1 37.4 FINAL Marcelo Herms B&Whole Blood [facility] ([facility]), [address], [address] [place] [address] 07/20 CBC w/ auto diff MO % % 5.3 12.2 8.8 FINAL Marcelo Herms B&Whole Blood [facility] ([facility]), [address], [address] [place] [address] 07/20 CBC w/ auto diff EO % % 0.8 7.0 4.2 FINAL Marcelo Herms B&Whole Blood [facility] ([facility]), [address], [address] [place] [address] 07/20 CBC w/ auto diff BA % % 0.2 1.2 0.3 FINAL Marcelo Herms B&Whole Blood [facility] ([facility]), [address], [address] [place] [address] 07/20 CBC w/ auto diff RBC 10*6/u L 4.63 6.08 5.60 FINAL Marcelo Herms B&Whole Blood [facility] ([facility]), [address], [address] [place] [address] 07/20 CBC w/ auto diff HGB g/dL 13.7 17.5 18.2 High FINAL Marcelo Herms B&Whole Blood [facility] ([facility]), [address], [address] [place] [address] 07/20 CBC w/ auto diff HCT % 40.1 51.0 52.8 High FINAL Marcelo Herms B&Whole Blood [facility] ([facility]), [address], [address] [place] [address] 07/20 CBC w/ auto diff MCV fL 79.0 92.2 94.3 High FINAL Marcelo Herms B&Whole Blood [facility] ([facility]), [address], [address] [place] [address] 07/20 CBC w/ auto diff MCH pg 25.7 32.2 32.5 High FINAL Marcelo Herms B&Whole Blood [facility] ([facility]), [address], [address] [place] [address] 07/20 CBC w/ auto diff MCHC g/dL 32.3 36.5 34.5 FINAL Marcelo Herms B&Whole Blood [facility] ([facility]), [address], [address] [place] [address] 07/20 CBC w/ auto diff RDW-C V, % % 11.6 14.4 12.5 FINAL Marcelo Herms B&Whole Blood [facility] ([facility]), [address], [address] [place] [address] 07/20 CBC w/ auto diff PLT 10*3/u L 163.0 337.0 160.0 Low FINAL Marcelo Herms B&Whole Blood [facility] ([facility]), [address], [address] [place] [address] 11/09 CBC w/ auto diff WBC 10*3/u [...] Blood 5 02/12 Lab Repor t See lpc d 02/15 CBC w/ auto diff WBC 10*3/u L 4.2 9.1 8.8 FINAL Marcelo Olson B&Whole Blood [facility] ([facility]), [address], [address] [place] [address] 02/15 CBC w/ auto diff Cristobal # (ANC) 10*3/u L 1.78 5.38 4.12 FINAL Marcelo Mahmoods B&Whole Blood [facility] ([facility]), [address], [address] [facility] [place] [address] 02/15 CBC w/ auto diff LY # 10*3/u L 1.32 3.57 3.32 FINAL Marcelo Mahmoods B&Whole Blood [facility] ([facility]), [address], [address] [facility] [place] [address] 02/15 CBC w/ auto diff MO # 10*3/u L 0.3 0.82 0.96 High FINAL Marcelo Mahmoods B&Whole Blood [facility] ([facility]), [address], [address] [facility] [place] [address] 02/15 CBC w/ auto diff EO # 10*3/u lL 0.04 0.54 0.36 FINAL Marcelo Mahmoods B&Whole Blood [facility] ([facility]), [address], [address] [facility] [place] [address] 02/15 CBC w/ auto diff BA # 10*3/u L 0.01 0.08 0.04 FINAL Marcelo Mahmoods B&Whole Blood [facility] ([facility]), [address], [address] [facility] [place] [address] 02/15 CBC w/ auto diff Cristobal % % 34.0 67.9 46.8 FINAL Marcelo Mahmoods B&Whole Blood [facility] ([facility]), [address], [address] [facility] [place] [facility] 02/15 CBC w/ auto diff LY % % 21.8 53.1 37.7 FINAL Marcelo Mahmoods B&Whole Blood [facility] ([facility]), [address], [address] [facility] [place] [address] 02/15 CBC w/ auto diff MO % % 5.3 12.2 10.9 FINAL Marcelo Mahmoods B&Whole Blood [facility] ([facility]), [address], [address] [facility] [place] [place] [address] 02/15 CBC w/ auto diff EO % % 0.8 7.0 4.1 FINAL Marcelo Mahmoods B&Whole Blood [facility] ([facility]), [address], [address] [facility] [place] [address] 02/15 CBC w/ auto diff BA % % 0.2 1.2 0.5 FINAL Marcelo Mahmoods B&Whole Blood [facility] ([facility]), [address], [address] [facility] [place] [address] 02/15 CBC w/ auto diff RBC 10*6/u L 4.63 6.08 5.33 FINAL Marcelo Olson B&Whole Blood [facility] ([facility]), [address], [address] [facility] [place] [facility] 02/15 CBC w/ auto diff HGB g/dL 13.7 17.5 17.4 FINAL Marcelo Olson B&Whole Blood [facility] ([facility]), [address], [address] [facility] [place] [facility] 02/15 CBC w/ auto diff HCT % 40.1 51.0 50.4 FINAL Marcelo Olson B&Whole Blood [facility] ([facility]), [address], [address] [place] [address] 02/15 CBC w/ auto diff MCV fL 79.0 92.2 94.6 High FINAL Marcelo Mahmoods B&Whole Blood [facility] ([facility]), [address], [address] [place] [address] 02/15 CBC w/ auto diff MCH pg 25.7 32.2 32.6 High FINAL Marcelo Olson B&Whole Blood [facility] ([facility]), [address], [address] [place] [address] 02/15 CBC w/ auto diff MCHC g/dL 32.3 36.5 34.5 FINAL Marcelo Olson B&Whole Blood [facility] ([facility]), [address], [address] [place] [address] 02/15 CBC w/ auto diff RDW-C V, % % 11.6 14.4 14.0 FINAL Marcelo Olson B&Whole Blood [facility] ([facility]), [address], [address] [facility] [place] [facility] 02/15 CBC w/ auto diff PLT 10*3/u L 163.0 337.0 172.0 FINAL Marcelo Mahmoods B&Whole Blood [facility] ([facility]), [address], [address] [facility] [place] [address] 05/31 CBC w/ auto diff WBC 10*3/u L 4.2 9.1 10.4 High FINAL Marcelo Mahmoods B&Whole Blood [facility] ([facility]), [address], [address] [facility] [place] [facility] 05/31 CBC w/ auto diff Cristobal # (ANC) 10*3/u L 1.78 5.38 5.26 FINAL Marcelo Olson B&Whole Blood [facility] ([facility]), [address], [address] [place] [address] 05/31 CBC w/ auto diff LY # 10*3/u L 1.32 3.57 3.84 High FINAL Marcelo Olson B&Whole Blood [facility] ([facility]), [address], [address] [place] [address] 05/31 CBC w/ auto diff MO # 10*3/u L 0.3 0.82 0.94 High FINAL Marcelo Olson B&Whole Blood [facility] ([facility]), [address], [address] [place] [address] 05/31 CBC w/ auto diff EO # 10*3/u lL 0.04 0.54 0.30 FINAL Marcelo Olson B&Whole Blood [facility] ([facility]), [address], [address] [place] [address] 05/31 CBC w/ auto diff BA # 10*3/u L 0.01 0.08 0.03 FINAL Marcelo Olson B&Whole Blood [facility] ([facility]), [address], [address] [place] [address] 05/31 CBC w/ auto diff Cristobal % % 34.0 67.9 50.7 FINAL Marcelo Olson B&Whole Blood [facility] ([facility]), [address], [address] [place] [address] 05/31 CBC w/ auto diff LY % % 21.8 53.1 37.0 FINAL Marcelo Olson B&Whole Blood [facility] ([facility]), [address], [address] [place] [address] 05/31 CBC w/ auto diff MO % % 5.3 12.2 9.1 FINAL Marcelo Mahmoods B&Whole Blood [facility] ([facility]), [address], [address] [place] [address] 05/31 CBC w/ auto diff EO % % 0.8 7.0 2.9 FINAL Marcelo Mahmoods B&Whole Blood [facility] ([facility]), [address], [address] [place] [address] 05/31 CBC w/ auto diff BA % % 0.2 1.2 0.3 FINAL Marcelo Mahmoods B&Whole Blood [facility] ([facility]), [address], [address] [place] [address] 05/31 CBC w/ auto diff RBC 10*6/u L 4.63 6.08 5.01 FINAL Marcelo Mahmoods B&Whole Blood [facility] ([facility]), [address], [address] [place] [address] 05/31 CBC w/ auto diff HGB g/dL 13.7 17.5 16.4 FINAL Marcelo Mahmoods B&Whole Blood [facility] ([facility]), [address], [address] [place] [address] 05/31 CBC w/ auto diff HCT % 40.1 51.0 47.5 FINAL Marcelo Mahmoods B&Whole Blood [facility] ([facility]), [address], [address] [place] [address] 05/31 CBC w/ auto diff MCV fL 79.0 92.2 94.8 High FINAL Marcelo Mahmoods B&Whole Blood [facility] ([facility]), [address], [address] [place] [address] 05/31 CBC w/ auto diff MCH pg 25.7 32.2 32.7 High FINAL [facility] B&Whole Blood [facility] ([facility]), [address], [address] [place] [address] 05/31 CBC w/ auto diff MCHC g/dL 32.3 36.5 34.5 FINAL Marcelo Mahmoods B&Whole Blood [facility] ([facility]), [address], [address] [place] [address] 05/31 CBC w/ auto diff RDW-C V, % % 11.6 14.4 13.8 FINAL Marcelo Mahmoods B&Whole Blood [facility] ([facility]), [address], [address] [place] [address] 05/31 CBC w/ auto diff PLT 10*3/u L 163.0 337.0 161.0 Low FINAL Marcelo Mahmoods B&Whole Blood [facility] ([facility]), [address], [address] [place] [address] 06/21 CBC w/ auto diff WBC 10*3/u L 4.2 9.1 14.1 High FINAL Marcelo [facility] ([facility]), [address], [address] [place] [address] 06/21 CBC w/ auto diff Cristobal # (ANC) 10*3/u L 1.78 5.38 10.63 High FINAL Marcelo [facility] ([facility]), [address], [address] [place] [address] 06/21 CBC w/ auto diff LY # 10*3/u L 1.32 3.57 2.09 FINAL Marcelo [facility] ([facility]), [address], [address] [place] [address] 06/21 CBC w/ auto diff MO # 10*3/u L 0.3 0.82 1.34 High FINAL Marcelo [facility] ([facility]), [address], [address] [place] [address] 06/21 CBC w/ auto diff EO # 10*3/u lL 0.04 0.54 0.03 Low FINAL Marcelo [facility] ([facility]), [address], [address] [place] [address] 06/21 CBC w/ auto diff BA # 10*3/u L 0.01 0.08 0.02 FINAL Marcelo [facility] ([facility]), [address], [address] [place] [address] 06/21 CBC w/ auto diff Cristobal % % 34.0 67.9 75.4 High FINAL Marcelo [facility] ([facility]), [address], [address] [place] [address] 06/21 CBC w/ auto diff LY % % 21.8 53.1 14.8 Low FINAL Marcelo [facility] ([facility]), [address], [address] [place] [address] 06/21 CBC w/ auto diff MO % % 5.3 12.2 9.5 FINAL Marcelo [facility] ([facility]), [address], [address] [place] [address] 06/21 CBC w/ auto diff EO % % 0.8 7.0 0.2 Low FINAL [facility] ([facility]), [address], [address] [place] [address] 06/21 CBC w/ auto diff BA % % 0.2 1.2 0.1 Low FINAL [facility] ([facility]), [address], [address] [place] [address] 06/21 CBC w/ auto diff RBC 10*6/u L 4.63 6.08 4.90 FINAL [facility] ([facility]), [address], [address] [place] [address] 06/21 CBC w/ auto diff HGB g/dL 13.7 17.5 16.0 FINAL [facility] ([facility]), [address], [address] [place] [address] 06/21 CBC w/ auto diff HCT % 40.1 51.0 47.5 FINAL [facility] ([facility]), [address], [address] [place] [address] 06/21 CBC w/ auto diff MCV fL 79.0 92.2 96.9 High FINAL [facility] ([facility]), [address], [address] [place] [address] 06/21 CBC w/ auto diff MCH pg 25.7 32.2 32.7 High FINAL [facility] ([facility]), [address], [address] [place] [address] 06/21 CBC w/ auto diff MCHC g/dL 32.3 36.5 33.7 FINAL [facility] ([facility]), [address], [address] [place] [address] 06/21 CBC w/ auto diff RDW-C V, % % 11.6 14.4 14.0 FINAL [facility] ([facility]), [address], [address] [place] [address] 06/21 CBC w/ auto diff PLT 10*3/u L 163.0 337.0 185.0 FINAL Marcelo Olson [facility] ([facility]), [address], [address] [facility] [address] 07/23 Lab Repor t See lpc d Medications Date Name Route Dose Frequency [...] Print Location: Unknown Date/Time Printed: 10/19/2025 17:05 (Lauren/[facility]) Patient: VALERIE PUENTES Sex: Male [...] Selected Billing Code(s): PHLEBOTOMY THERAPEUTIC SEPARATE PROCEDURE (76639) Entered By Barbara Casas RN; Incident to Marcelo Olson MD * Nurse Note for: 09-NOV-19 [facility] Nurse Note Print Location: Unknown Date/Time Printed: 10/19/2025 17:05 ([facility]) Patient: VALERIE PUENTES Sex: Male [...] Selected Billing Code(s): PHLEBOTOMY THERAPEUTIC SEPARATE PROCEDURE (49359) Entered By Ju Gupta RN; Incident to Marcelo Olson MD * Nurse Note for: 20-JUL-19 [facility] Nurse Note Print Location: Unknown Date/Time Printed: 10/19/2025 17:05 ([facility]ren/[facility]) Patient: VALERIE PUENTES Sex: Male [...] Selected Billing Code(s): PHLEBOTOMY THERAPEUTIC SEPARATE PROCEDURE (63307) Entered By Barbara Garcia RN; Incident to Marcelo Olson MD
--- OUTSIDE RECORDS SUMMARY | 2025-10-19 17:07 | XMS_ITS ---
Author Name Interface, [id number] lity Address [address] [place] [address] Organization [facility] Address [address] [place] [address] Allergies and Adverse Reactions Medication/Group Name Reaction [...] Olson B&Whole Blood Formerly [facility] ([facility]), [address], [address] [place] [address] 02/15 CBC w/ auto diff Cristobal # (ANC) 10*3/u L 1.78 5.38 4.12 FINAL Marcelo Olson B&Whole Blood Formerly [facility] ([facility]), [address] at the [facility], [address] [place] [address] 02/15 CBC w/ auto diff LY # 10*3/u L 1.32 3.57 3.32 FINAL Marcelo Olson B&Whole Blood Formerly [facility] ([facility]), [address], [address] [place] [address] 02/15 CBC w/ auto diff MO # 10*3/u L 0.3 0.82 0.96 High FINAL Marcelo Olson B&Whole Blood Formerly [facility] ([facility]), [address], [address] [place] [address] 02/15 CBC w/ auto diff EO # 10*3/u lL 0.04 0.54 0.36 FINAL Marcelo Olson B&Whole Blood Formerly [facility] ([facility]), [address], [address] [place] [address] 02/15 CBC w/ auto diff BA # 10*3/u L 0.01 0.08 0.04 FINAL Marcelo Olson B&Whole Blood Formerly [facility] ([facility]), [address] at the [facility], [address] [place] [address] 02/15 CBC w/ auto diff Cristobal % % 34.0 67.9 46.8 FINAL Marcelo Olson B&Whole Blood Formerly [facility] ([facility]), [address], [address] [place] [address] 02/15 CBC w/ auto diff LY % % 21.8 53.1 37.7 FINAL Marcelo Olson B&Whole Blood Formerly [facility] (T), [address], [place] [address] 02/15 CBC w/ auto diff MO % % 5.3 12.2 10.9 FINAL Marcelo Olson B&Whole Blood Formerly [facility] (T), [address], [address] [facility] [place] [facility] 02/15 CBC w/ auto diff EO % % 0.8 7.0 4.1 FINAL Marcelo Olson B&Whole Blood Formerly [facility] (T), [address], [address] [facility] [place] [facility] 02/15 CBC w/ auto diff BA % % 0.2 1.2 0.5 FINAL Marcelo Olson B&Whole Blood Formerly [facility] ([facility]), [address], [address] [facility] [place] [facility] 02/15 CBC w/ auto diff RBC 10*6/u L 4.63 6.08 5.33 FINAL Marcelo Olson B&Whole Blood Formerly [facility] ([facility]), [address], [address] [facility] [place] [facility] 02/15 CBC w/ auto diff HGB g/dL 13.7 17.5 17.4 FINAL Marcelo Olson B&Whole Blood Formerly [facility] (T), [address], [address] [place] [address] 02/15 CBC w/ auto diff HCT % 40.1 51.0 50.4 FINAL Marcelo Olson B&Whole Blood Formerly [facility] (T), [address], [address] [facility] [place] [facility] 02/15 CBC w/ auto diff MCV fL 79.0 92.2 94.6 High FINAL Marcelo Olson B&Whole Blood Formerly [facility] ([facility]), [address], [address] [facility] [place] [facility] 02/15 CBC w/ auto diff MCH pg 25.7 32.2 32.6 High FINAL Marcelo Olson B&Whole Blood Formerly [facility] (T), [address], [address] [facility] [place] [facility] 02/15 CBC w/ auto diff MCHC g/dL 32.3 36.5 34.5 FINAL Marcelo Mahmoods B&Whole Blood Formerly [facility] (T), [address], [address] [facility] [place] [address] 02/15 CBC w/ auto diff RDW-C V, % % 11.6 14.4 14.0 FINAL Marcelo Mahmoods B&Whole Blood [facility] (T), [address], [address] [place] [address] 02/15 CBC w/ auto diff PLT 10*3/u L 163.0 337.0 172.0 FINAL Marcelo Mahmoods B&Whole Blood Formerly [facility] (T), [address], [address] [place] [address] 05/31 CBC w/ auto diff WBC 10*3/u L 4.2 9.1 10.4 High FINAL Marcelo Herms B&Whole Blood [facility] (T), [address], [address] [place] [address] 05/31 CBC w/ auto diff Cristobal # (ANC) 10*3/u L 1.78 5.38 5.26 FINAL Marcelo Mahmoods B&Whole Blood Formerly [facility] (T), [address], [address] [place] [address] 05/31 CBC w/ auto diff LY # 10*3/u L 1.32 3.57 3.84 High FINAL Marcelo Mahmoods B&Whole Blood [facility] (T), [address], [address] [place] [address] 05/31 CBC w/ auto diff MO # 10*3/u L 0.3 0.82 0.94 High FINAL Marcelo Herms B&Whole Blood [facility] (T), [address], [address] [place] [address] 05/31 CBC w/ auto diff EO # 10*3/u lL 0.04 0.54 0.30 FINAL Marcelo Herms B&Whole Blood [facility] (T), [address], [address] [place] [address] 05/31 CBC w/ auto diff BA # 10*3/u L 0.01 0.08 0.03 FINAL Marcelo Herms B&Whole Blood [facility] (T), [address], [address] [place] [address] 05/31 CBC w/ auto diff Cristobal % % 34.0 67.9 50.7 FINAL Marcelo Herms B&Whole Blood [facility] ([facility]), [address], [place] [address] 05/31 CBC w/ auto diff LY % % 21.8 53.1 37.0 FINAL Marcelo Olson B&Whole Blood Formerly [facility] ([facility]), [address], [address] [facility] [place] [facility] 05/31 CBC w/ auto diff MO % % 5.3 12.2 9.1 FINAL Marcelo Olson B&Whole Blood Formerly [facility] ([facility]), [address], [address] [facility] [place] [facility] 05/31 CBC w/ auto diff EO % % 0.8 7.0 2.9 FINAL Marcelo Olson B&Whole Blood Formerly [facility] ([facility]), [address], [address] [place] [address] 05/31 CBC w/ auto diff BA % % 0.2 1.2 0.3 FINAL Marcelo Olson B&Whole Blood Formerly [facility] (T), [address], [address] [place] [address] 05/31 CBC w/ auto diff RBC 10*6/u L 4.63 6.08 5.01 FINAL Marcelo Olson B&Whole Blood Formerly [facility] (T), [address], [address] [place] [address] 05/31 CBC w/ auto diff HGB g/dL 13.7 17.5 16.4 FINAL Marcelo Olson B&Whole Blood Formerly [facility] ([facility]), [address], [address] [place] [address] 05/31 CBC w/ auto diff HCT % 40.1 51.0 47.5 FINAL Marcelo Olson B&Whole Blood Formerly [facility] ([facility]), [address], [address] [place] [address] 05/31 CBC w/ auto diff MCV fL 79.0 92.2 94.8 High FINAL Marcelo Mahmoods B&Whole Blood [facility] ([facility]), [address], [address] [place] [address] 05/31 CBC w/ auto diff MCH pg 25.7 32.2 32.7 High FINAL Marcelo Mahmoods B&Whole Blood [facility] ([facility]), [address], [address] [place] [address] 05/31 CBC w/ auto diff MCHC g/dL 32.3 36.5 34.5 FINAL [facility] B&Whole Blood Formerly [facility] (T), [address], [address] [place] [address] 05/31 CBC w/ auto diff RDW-C V, % % 11.6 14.4 13.8 FINAL [facility] B&Whole Blood Formerly [facility] (T), [address], [address] [place] [address] 05/31 CBC w/ auto diff PLT 10*3/u L 163.0 337.0 161.0 Low FINAL [facility] B&Whole Blood Formerly [facility] ([facility]), [address], [address] [place] [address] 06/21 CBC w/ auto diff WBC 10*3/u L 4.2 9.1 14.1 High FINAL [facility] ([facility]), [address], [address] [place] [address] 06/21 CBC w/ auto diff Cristobal # (ANC) 10*3/u L 1.78 5.38 10.63 High FINAL [facility] ([facility]), [address], [address] [place] [address] 06/21 CBC w/ auto diff LY # 10*3/u L 1.32 3.57 2.09 FINAL [facility] ([facility]), [address], [address] [place] [address] 06/21 CBC w/ auto diff MO # 10*3/u L 0.3 0.82 1.34 High FINAL [facility] ([facility]), [address], [address] [place] [address] 06/21 CBC w/ auto diff EO # 10*3/u lL 0.04 0.54 0.03 Low FINAL [facility] ([facility]), [address], [address] [place] [address] 06/21 CBC w/ auto diff BA # 10*3/u L 0.01 0.08 0.02 FINAL [facility] ([facility]), [address], [address] [place] [address] 06/21 CBC w/ auto diff Cristobal % % 34.0 67.9 75.4 High FINAL [facility] ([facility]), [address], [address] [place] [address] 06/21 CBC w/ auto diff LY % % 21.8 53.1 14.8 Low FINAL [facility] ([facility]), [address], [address] [place] [address] 06/21 CBC w/ auto diff MO % % 5.3 12.2 9.5 FINAL [facility] ([facility]), [address], [address] [place] [address] 06/21 CBC w/ auto diff EO % % 0.8 7.0 0.2 Low FINAL [facility] ([facility]), [address], [address] [place] [address] 06/21 CBC w/ auto diff BA % % 0.2 1.2 0.1 Low FINAL [facility] ([facility]), [address], [address] [place] [address] 06/21 CBC w/ auto diff RBC 10*6/u L 4.63 6.08 4.90 FINAL [facility] ([facility]), [address], [address] [place] [address] 06/21 CBC w/ auto diff HGB g/dL 13.7 17.5 16.0 FINAL [facility] ([facility]), [address], [address] [place] [address] 06/21 CBC w/ auto diff HCT % 40.1 51.0 47.5 FINAL [facility] ([facility]), [address], [address] [place] [address] 06/21 CBC w/ auto diff MCV fL 79.0 92.2 96.9 High FINAL [facility] ([facility]), [address], [address] [place] [address] 06/21 CBC w/ auto diff MCH pg 25.7 32.2 32.7 High FINAL [facility] ([facility]), [address], [address] [facility] [address] 06/21 CBC w/ auto diff MCHC g/dL 32.3 36.5 33.7 FINAL [facility] ([facility]), [address], [address] [facility] [address] 06/21 CBC w/ auto diff RDW-C V, % % 11.6 14.4 14.0 FINAL [facility] ([facility]), [address], [address] [facility] [address] 06/21 CBC w/ auto diff PLT 10*3/u L 163.0 337.0 185.0 FINAL [facility] ([facility]), [address], [address] [facility] [address] 07/23 Lab Repor t See wire coiler d Medications Date Name Route Dose Frequency Instructions Start Date End Date Status Fill Status Indication 12/22 Sitagli ptin-Me tformin Oral 50 mg-1,00 0 mg orally 1.0 2 times per day active 12/22 Aspirin Oral orally 81.0 mg daily active 12/22 Insulin Detemir Subcuta neous 100 unit/mL subcutan eously 36.0 every evening active 12/22 Cyan[place] balamin Oral orally 5000.0 mcg daily active 12/22 [place] 3-DHA-E PA-Fish Oil Oral Liquid 1,600 mg-500 [...] Note Print Location: Unknown Date/Time Printed: 10/19/2025 17:07 (Lauren/[facility]) Patient: VALERIE PUENTES Sex: Male : [...] Selected Billing Code(s): PHLEBOTOMY THERAPEUTIC SEPARATE PROCEDURE (19653) Entered By Barbara Casas RN; Incident to Marcelo Olson MD
--- OUTSIDE RECORDS SUMMARY | 2025-10-19 17:07 | XMS_ITS ---
Author Name Interface, [id number] lity Address [address] [place] [address] Organization [facility] Address [address] [place] [address] Allergies and Adverse Reactions Medication/Group Name Reaction [...] Blood Formerly [facility] ([facility]), [address], [address] [place] [address] 07/20 CBC w/ auto diff Cristobal # (ANC) 10*3/u L 1.78 5.38 4.47 FINAL Marcelo Olson B&Whole Blood Formerly [facility] ([facility]), [address], Suite [facility] [place] Formerly [facility] 07/20 CBC w/ auto diff LY # 10*3/u L 1.32 3.57 3.40 FINAL Marcelo Olson B&Whole Blood Formerly [facility] ([facility]), [address], [address] [place], [place] [id number] 07/20 CBC w/ auto diff MO # 10*3/u L 0.3 0.82 0.80 FINAL Marcelo Olson B&Whole Blood Formerly [facility] ([facility]), [address], Suite [facility] [address] 07/20 CBC w/ auto diff EO # 10*3/u lL 0.04 0.54 0.38 FINAL Marcelo Olson B&Whole Blood Formerly [facility] ([facility]), [address], Suite [facility] [address] 07/20 CBC w/ auto diff BA # 10*3/u L 0.01 0.08 0.03 FINAL Marcelo Funez&Whole Blood [facility] ([facility]), [address], [address] [place] [address] 07/20 CBC w/ auto diff Cristobal % % 34.0 67.9 49.3 FINAL Marcelo Herms B&Whole Blood [facility] ([facility]), [address], [address] [place] [address] 07/20 CBC w/ auto diff LY % % 21.8 53.1 37.4 FINAL Marcelo Herms B&Whole Blood [facility] ([facility]), [address], [address] [place] [address] 07/20 CBC w/ auto diff MO % % 5.3 12.2 8.8 FINAL Marcelo Herms B&Whole Blood [facility] ([facility]), [address], [address] [place] [address] 07/20 CBC w/ auto diff EO % % 0.8 7.0 4.2 FINAL Marcelo Herms B&Whole Blood Formerly [facility] ([facility]), [address], [address] [place] [address] 07/20 CBC w/ auto diff BA % % 0.2 1.2 0.3 FINAL Marcelo Herms B&Whole Blood [facility] ([facility]), [address], [address] [place] [address] 07/20 CBC w/ auto diff RBC 10*6/u L 4.63 6.08 5.60 FINAL Marcelo Herms B&Whole Blood Formerly [facility] ([facility]), [address], [address] [place] [address] 07/20 CBC w/ auto diff HGB g/dL 13.7 17.5 18.2 High FINAL Marcelo Herms B&Whole Blood [facility] ([facility]), [address], [address] [place] [address] 07/20 CBC w/ auto diff HCT % 40.1 51.0 52.8 High FINAL Marcelo Herms B&Whole Blood [facility] ([facility]), [address], [address] [place] [address] 07/20 CBC w/ auto diff MCV fL 79.0 92.2 94.3 High FINAL Marcelo Herms B&Whole Blood [facility] ([facility]), [address], [address] [place] [address] 07/20 CBC w/ auto diff MCH pg 25.7 32.2 32.5 High FINAL Marcelo Herms B&Whole Blood Formerly [facility] ([facility]), [address], [address] [place] [address] 07/20 CBC w/ auto diff MCHC g/dL 32.3 36.5 34.5 FINAL Marcelo Herms B&Whole Blood Formerly [facility] ([facility]), [address], [address] [place] [address] 07/20 CBC w/ auto diff RDW-C V, % % 11.6 14.4 12.5 FINAL Marcelo Herms B&Whole Blood Formerly [facility] ([facility]), [address], [address] [place] [address] 07/20 CBC w/ auto diff PLT 10*3/u L 163.0 337.0 160.0 Low FINAL Marcelo Herms B&Whole Blood Formerly [facility] ([facility]), [address], [address] [place] [address] 11/09 CBC w/ auto diff WBC 10*3/u [...] Blood 5 02/12 Lab Repor t See health safety instructor d 02/15 CBC w/ auto diff WBC 10*3/u L 4.2 9.1 8.8 FINAL Marcelo Olson B&Whole Blood Formerly [facility] ([facility]), [address], [address] [place] [address] 02/15 CBC w/ auto diff Cristobal # (ANC) 10*3/u L 1.78 5.38 4.12 FINAL Marcelo Mahmoods B&Whole Blood [facility] ([facility]), [address], Suite [facility] [address] 02/15 CBC w/ auto diff LY # 10*3/u L 1.32 3.57 3.32 FINAL Marcelo Mahmoods B&Whole Blood [facility] ([facility]), [address], [address] [facility] [address] 02/15 CBC w/ auto diff MO # 10*3/u L 0.3 0.82 0.96 High FINAL Marcelo Mahmoods B&Whole Blood [facility] ([facility]), [address], [address] [facility] [address] 02/15 CBC w/ auto diff EO # 10*3/u lL 0.04 0.54 0.36 FINAL Marcelo Mahmoods B&Whole Blood [facility] ([facility]), [address], [address] [facility] [address] 02/15 CBC w/ auto diff BA # 10*3/u L 0.01 0.08 0.04 FINAL Marcelo Mahmoods B&Whole Blood [facility] ([facility]), [address], [address] [facility] [address] 02/15 CBC w/ auto diff Cristobal % % 34.0 67.9 46.8 FINAL Marcelo Mahmoods B&Whole Blood [facility] ([facility]), [address], [address] [facility] [place] Formerly [facility] 02/15 CBC w/ auto diff LY % % 21.8 53.1 37.7 FINAL Marcelo Mahmoods B&Whole Blood [facility] ([facility]), [address], [address] [facility] [address] 02/15 CBC w/ auto diff MO % % 5.3 12.2 10.9 FINAL Marcelo Mahmoods B&Whole Blood [facility] ([facility]), [address], [address] [facility] [address] 02/15 CBC w/ auto diff EO % % 0.8 7.0 4.1 FINAL Marcelo Mahmoods B&Whole Blood [facility] ([facility]), [address], [address] [facility] [address] 02/15 CBC w/ auto diff BA % % 0.2 1.2 0.5 FINAL Marcelo Mahmoods B&Whole Blood [facility] ([facility]), [address], [address] [facility] [address] 02/15 CBC w/ auto diff RBC 10*6/u L 4.63 6.08 5.33 FINAL Marcelo Olson B&Whole Blood Formerly [facility] ([facility]), [address], [address] [facility] [place] Formerly [facility] 02/15 CBC w/ auto diff HGB g/dL 13.7 17.5 17.4 FINAL Marcelo Olson B&Whole Blood Formerly [facility] ([facility]), [address], [address] [facility] [place] [facility] 02/15 CBC w/ auto diff HCT % 40.1 51.0 50.4 FINAL Marcelo Olson B&Whole Blood Formerly [facility] ([facility]), [address], [address] [place] [address] 02/15 CBC w/ auto diff MCV fL 79.0 92.2 94.6 High FINAL Marcelo Mahmoods B&Whole Blood Formerly [facility] ([facility]), [address], [address] [place] [address] 02/15 CBC w/ auto diff MCH pg 25.7 32.2 32.6 High FINAL Marcelo Olson B&Whole Blood Formerly [facility] ([facility]), [address], [address] [place] [address] 02/15 CBC w/ auto diff MCHC g/dL 32.3 36.5 34.5 FINAL Marcelo Olson B&Whole Blood Formerly [facility] ([facility]), [address], [address] [place] [address] 02/15 CBC w/ auto diff RDW-C V, % % 11.6 14.4 14.0 FINAL Marcelo Olson B&Whole Blood Formerly [facility] ([facility]), [address], [address] [facility] [place] [facility] 02/15 CBC w/ auto diff PLT 10*3/u L 163.0 337.0 172.0 FINAL Marcelo Mahmoods B&Whole Blood Formerly [facility] ([facility]), [address], [address] [facility] [address] 05/31 CBC w/ auto diff WBC 10*3/u L 4.2 9.1 10.4 High FINAL Marcelo Mahmoods B&Whole Blood Formerly [facility] ([facility]), [address], [address] [facility] [place] [facility] 05/31 CBC w/ auto diff Cristobal # (ANC) 10*3/u L 1.78 5.38 5.26 FINAL Marcelo Olson B&Whole Blood Formerly [facility] ([facility]), [address], [address] [place] [address] 05/31 CBC w/ auto diff LY # 10*3/u L 1.32 3.57 3.84 High FINAL Marcelo Olson B&Whole Blood Formerly [facility] ([facility]), [address], [address] [place] [address] 05/31 CBC w/ auto diff MO # 10*3/u L 0.3 0.82 0.94 High FINAL Marcelo Olson B&Whole Blood Formerly [facility] ([facility]), [address], [address] [place] [address] 05/31 CBC w/ auto diff EO # 10*3/u lL 0.04 0.54 0.30 FINAL Marcelo Olson B&Whole Blood Formerly [facility] ([facility]), [address], [address] [place] [address] 05/31 CBC w/ auto diff BA # 10*3/u L 0.01 0.08 0.03 FINAL Marcelo Olson B&Whole Blood Formerly [facility] ([facility]), [address], [address] [place] [address] 05/31 CBC w/ auto diff Cristobal % % 34.0 67.9 50.7 FINAL Marcelo Olson B&Whole Blood Formerly [facility] ([facility]), [address], [address] [place] [address] 05/31 CBC w/ auto diff LY % % 21.8 53.1 37.0 FINAL Marcelo Olson B&Whole Blood [facility] ([facility]), [address], [address] [place] [address] 05/31 CBC w/ auto diff MO % % 5.3 12.2 9.1 FINAL Marcelo Mahmoods B&Whole Blood Formerly [facility] ([facility]), [address], [address] [place] [address] 05/31 CBC w/ auto diff EO % % 0.8 7.0 2.9 FINAL Marcelo Mahmoods B&Whole Blood [facility] ([facility]), [address], [address] [place] [address] 05/31 CBC w/ auto diff BA % % 0.2 1.2 0.3 FINAL Marcelo Mahmoods B&Whole Blood Formerly [facility] ([facility]), [address], [address] [place] [address] 05/31 CBC w/ auto diff RBC 10*6/u L 4.63 6.08 5.01 FINAL Marcelo Mahmoods B&Whole Blood Formerly [facility] ([facility]), [address], [address] [place] [address] 05/31 CBC w/ auto diff HGB g/dL 13.7 17.5 16.4 FINAL Marcelo Mahmoods B&Whole Blood Formerly [facility] ([facility]), [address], [address] [place] [address] 05/31 CBC w/ auto diff HCT % 40.1 51.0 47.5 FINAL Marcelo Mahmoods B&Whole Blood Formerly [facility] ([facility]), [address], [address] [place] [address] 05/31 CBC w/ auto diff MCV fL 79.0 92.2 94.8 High FINAL Marcelo Mahmoods B&Whole Blood Formerly [facility] ([facility]), [address], [address] [place] [address] 05/31 CBC w/ auto diff MCH pg 25.7 32.2 32.7 High FINAL [facility] B&Whole Blood Formerly [facility] ([facility]), [address], [address] [place] [address] 05/31 CBC w/ auto diff MCHC g/dL 32.3 36.5 34.5 FINAL Marcelo Mahmoods B&Whole Blood Formerly [facility] ([facility]), [address], [address] [place] [address] 05/31 CBC w/ auto diff RDW-C V, % % 11.6 14.4 13.8 FINAL Marcelo Mahmoods B&Whole Blood Formerly [facility] ([facility]), [address], [address] [place] [address] 05/31 CBC w/ auto diff PLT 10*3/u L 163.0 337.0 161.0 Low FINAL Marcelo Mahmoods B&Whole Blood Formerly [facility] ([facility]), [address], [address] [place] [address] 06/21 CBC w/ auto diff WBC 10*3/u L 4.2 9.1 14.1 High FINAL Marcelo [facility] ([facility]), [address], [address] [place] [address] 06/21 CBC w/ auto diff Cristobal # (ANC) 10*3/u L 1.78 5.38 10.63 High FINAL Marcelo [facility] ([facility]), [address], [address] [place] [address] 06/21 CBC w/ auto diff LY # 10*3/u L 1.32 3.57 2.09 FINAL Marcelo [facility] ([facility]), [address], [address] [place] [address] 06/21 CBC w/ auto diff MO # 10*3/u L 0.3 0.82 1.34 High FINAL Marcelo [facility] ([facility]), [address], [address] [place] [address] 06/21 CBC w/ auto diff EO # 10*3/u lL 0.04 0.54 0.03 Low FINAL Marcelo [facility] ([facility]), [address], [address] [place] [address] 06/21 CBC w/ auto diff BA # 10*3/u L 0.01 0.08 0.02 FINAL Marcelo [facility] ([facility]), [address], [address] [place] [address] 06/21 CBC w/ auto diff Cristobal % % 34.0 67.9 75.4 High FINAL Marcelo [facility] ([facility]), [address], [address] [place] [address] 06/21 CBC w/ auto diff LY % % 21.8 53.1 14.8 Low FINAL Marcelo [facility] ([facility]), [address], [address] [place] [address] 06/21 CBC w/ auto diff MO % % 5.3 12.2 9.5 FINAL Marcelo [facility] ([facility]), [address], [address] [place] [address] 06/21 CBC w/ auto diff EO % % 0.8 7.0 0.2 Low FINAL [facility] ([facility]), [address], [address] [place] [address] 06/21 CBC w/ auto diff BA % % 0.2 1.2 0.1 Low FINAL [facility] ([facility]), [address], [address] [place] [address] 06/21 CBC w/ auto diff RBC 10*6/u L 4.63 6.08 4.90 FINAL [facility] ([facility]), [address], [address] [place] [address] 06/21 CBC w/ auto diff HGB g/dL 13.7 17.5 16.0 FINAL [facility] ([facility]), [address], [address] [place] [address] 06/21 CBC w/ auto diff HCT % 40.1 51.0 47.5 FINAL [facility] ([facility]), [address], [address] [place] [address] 06/21 CBC w/ auto diff MCV fL 79.0 92.2 96.9 High FINAL [facility] ([facility]), [address], [address] [place] [address] 06/21 CBC w/ auto diff MCH pg 25.7 32.2 32.7 High FINAL [facility] ([facility]), [address], [address] [place] [address] 06/21 CBC w/ auto diff MCHC g/dL 32.3 36.5 33.7 FINAL [facility] ([facility]), [address], [address] [place] [address] 06/21 CBC w/ auto diff RDW-C V, % % 11.6 14.4 14.0 FINAL [facility] ([facility]), [address], [address] [place] [address] 06/21 CBC w/ auto diff PLT 10*3/u L 163.0 337.0 185.0 FINAL Marcelo Olson [facility] ([facility]), [address], [address] [facility] [address] 07/23 Lab Repor t See health safety instructor d Medications Date Name Route Dose Frequency Instructions Start Date End Date Status Fill Status Indication 12/22 Sitagli ptin-Me tformin Oral 50 mg-1,00 0 mg orally 1.0 2 times per day active 12/22 Aspirin Oral orally 81.0 mg daily active 12/22 Insulin Detemir Subcuta neous 100 unit/mL subcutan eously 36.0 every evening active 12/22 Cyanoco balamin Oral orally 5000.0 mcg daily active 12/22 [place] 3-DHA-E PA-Fish Oil Oral Liquid 1,600 [...] Print Location: Unknown Date/Time Printed: 10/19/2025 17:06 ([facility]) Patient: VALERIE PUENTES Sex: Male [...] Selected Billing Code(s): PHLEBOTOMY THERAPEUTIC SEPARATE PROCEDURE (80397) Entered By Barbara Casas RN; Incident to Marcelo Olson MD * Nurse Note for: 09-NOV-19 [facility] Nurse Note Print Location: Unknown Date/Time Printed: 10/19/2025 17:06 ([facility]) Patient: VALERIE PUENTES Sex: Male [...] Selected Billing Code(s): PHLEBOTOMY THERAPEUTIC SEPARATE PROCEDURE (28103) Entered By Ju Gupta RN; Incident to Marcelo Olson MD * Nurse Note for: 20-JUL-19 [facility] Nurse Note Print Location: Unknown Date/Time Printed: 10/19/2025 17:06 ([facility]) Patient: VALERIE PUENTES Sex: Male [...] Drawn-No, Access Attempts-1 time(s), Entered By Barbara Gacria RN on 16:16 IV De-Access : IV Access Method-Peripheral - New Start, IV Access Type-Iv Cath, Catheter-Dc'd, Site Care-Bandage Applied,Therapy Completed Without Adverse Event, Site Assess- Line Intact,No Redness,No Swelling,No Tenderness,No Bruising, Entered By Barbara Garcia RN on 16:16 Procedures : Therapeutic phlebotomy (procedure) - Associated Problem(s): Secondary polycythemia *; Selected Billing Code(s): PHLEBOTOMY THERAPEUTIC SEPARATE PROCEDURE (47793) Entered By Barbara Garcia RN; Incident to Marcelo Olson MD
--- OUTSIDE RECORDS SUMMARY | 2025-10-19 17:07 | XMS_ITS ---
Author Name Interface, [id number] lity Address [address] [place] [address] Organization [facility] Address [address] [place] [address] Allergies and Adverse Reactions Medication/Group Name Reaction [...] FINAL Marcelo Olson B&Whole Blood [facility] ([facility]), [address], [address] [place] [address] 02/15 CBC w/ auto diff Cristobal # (ANC) 10*3/u L 1.78 5.38 4.12 FINAL Marcelo Olson B&Whole Blood [facility] ([facility]), [address], [address] [place] [address] 02/15 CBC w/ auto diff LY # 10*3/u L 1.32 3.57 3.32 FINAL Marcelo Olson B&Whole Blood [facility] ([facility]), [address], [address] [place] [address] 02/15 CBC w/ auto diff MO # 10*3/u L 0.3 0.82 0.96 High FINAL Marcelo Olson B&Whole Blood [facility] ([facility]), [address], [address] [place] [address] 02/15 CBC w/ auto diff EO # 10*3/u lL 0.04 0.54 0.36 FINAL Marcelo Olson B&Whole Blood [facility] ([facility]), [address], [address] [place] [address] 02/15 CBC w/ auto diff BA # 10*3/u L 0.01 0.08 0.04 FINAL Marcelo Olson B&Whole Blood [facility] ([facility]), [address], [address] [place] [address] 02/15 CBC w/ auto diff Cristobal % % 34.0 67.9 46.8 FINAL Marcelo Olson B&Whole Blood [facility] ([facility]), [address], [address] [place] [address] 02/15 CBC w/ auto diff LY % % 21.8 53.1 37.7 FINAL Marcelo Mahmoods B&Whole Blood [facility] ([facility]), [address], [place] [facility] [address] 02/15 CBC w/ auto diff MO % % 5.3 12.2 10.9 FINAL Marcelo Mahmoods B&Whole Blood [facility] ([facility]), [address], [place] [facility] [place] [address] 02/15 CBC w/ auto diff EO % % 0.8 7.0 4.1 FINAL Marcelo Olson B&Whole Blood [facility] ([facility]), [address], Suite [facility] [place] [facility] 02/15 CBC w/ auto diff BA % % 0.2 1.2 0.5 FINAL Marcelo Mahmoods B&Whole Blood [facility] (T), [address], Suite [facility] [place] [facility] 02/15 CBC w/ auto diff RBC 10*6/u L 4.63 6.08 5.33 FINAL Marcelo Mahmoods B&Whole Blood [facility] (T), [address], Suite [facility] [place] [facility] 02/15 CBC w/ auto diff HGB g/dL 13.7 17.5 17.4 FINAL Marcelo Olson B&Whole Blood [facility] (T), [address], Suite [facility] [place] [facility] 02/15 CBC w/ auto diff HCT % 40.1 51.0 50.4 FINAL Marcelo Mahmoods B&Whole Blood [facility] (T), [address], Suite [facility] [place] [facility] 02/15 CBC w/ auto diff MCV fL 79.0 92.2 94.6 High FINAL Marcelo Mahmoods B&Whole Blood [facility] ([facility]), [address], [place] [facility] [place] [address] 02/15 CBC w/ auto diff MCH pg 25.7 32.2 32.6 High FINAL Marcelo Mahmoods B&Whole Blood [facility] ([facility]), [address], [place] [facility] [place] [address] 02/15 CBC w/ auto diff MCHC g/dL 32.3 36.5 34.5 FINAL Marcelo Mahmoods B&Whole Blood [facility] ([facility]), [address], [address] [place] [address] 02/15 CBC w/ auto diff RDW-C V, % % 11.6 14.4 14.0 FINAL Marcelo Mahmoods B&Whole Blood [facility] (T), [address], [address] [place] [address] 02/15 CBC w/ auto diff PLT 10*3/u L 163.0 337.0 172.0 FINAL Marcelo Mahmoods B&Whole Blood [facility] ([facility]), [address], [address] [place] [address] 05/31 CBC w/ auto diff WBC 10*3/u L 4.2 9.1 10.4 High FINAL Marcelo Mahmoods B&Whole Blood [facility] ([facility]), [address], [address] [place] [address] 05/31 CBC w/ auto diff Cristobal # (ANC) 10*3/u L 1.78 5.38 5.26 FINAL Marcelo Mahmoods B&Whole Blood [facility] ([facility]), [address], [address] [place] [address] 05/31 CBC w/ auto diff LY # 10*3/u L 1.32 3.57 3.84 High FINAL Marcelo Mahmoods B&Whole Blood [facility] ([facility]), [address], [address] [place] [address] 05/31 CBC w/ auto diff MO # 10*3/u L 0.3 0.82 0.94 High FINAL Marcelo Mahmoods B&Whole Blood [facility] ([facility]), [address], [address] [place] [address] 05/31 CBC w/ auto diff EO # 10*3/u lL 0.04 0.54 0.30 FINAL Marcelo Mahmoods B&Whole Blood [facility] ([facility]), [address], [address] [place] [address] 05/31 CBC w/ auto diff BA # 10*3/u L 0.01 0.08 0.03 FINAL Marcelo Herms B&Whole Blood [facility] ([facility]), [address], [address] [place] [address] 05/31 CBC w/ auto diff Cristobal % % 34.0 67.9 50.7 FINAL Marcelo Herms B&Whole Blood [facility] (T), [address], Suite [facility] [place] [facility] 05/31 CBC w/ auto diff LY % % 21.8 53.1 37.0 FINAL Marcelo Olson B&Whole Blood [facility] (T), [address], [address] [place] [address] 05/31 CBC w/ auto diff MO % % 5.3 12.2 9.1 FINAL Marcelo Olson B&Whole Blood [facility] (T), [address], [address] [place] [address] 05/31 CBC w/ auto diff EO % % 0.8 7.0 2.9 FINAL Marcelo Olson B&Whole Blood [facility] (T), [address], [address] [place] [address] 05/31 CBC w/ auto diff BA % % 0.2 1.2 0.3 FINAL Marcelo Olson B&Whole Blood [facility] (T), [address], [address] [place] [address] 05/31 CBC w/ auto diff RBC 10*6/u L 4.63 6.08 5.01 FINAL Marcelo Olson B&Whole Blood [facility] (T), [address], [address] [place] [address] 05/31 CBC w/ auto diff HGB g/dL 13.7 17.5 16.4 FINAL Marcelo Olson B&Whole Blood [facility] (T), [address], [address] [place] [address] 05/31 CBC w/ auto diff HCT % 40.1 51.0 47.5 FINAL Marcelo Olson B&Whole Blood [facility] (T), [address], [address] [place] [address] 05/31 CBC w/ auto diff MCV fL 79.0 92.2 94.8 High FINAL Marcelo Olson B&Whole Blood [facility] (T), [address], [address] [place] [address] 05/31 CBC w/ auto diff MCH pg 25.7 32.2 32.7 High FINAL Marcelo Olson B&Whole Blood [facility] (T), [address], [address] [place] [address] 05/31 CBC w/ auto diff MCHC g/dL 32.3 36.5 34.5 FINAL Marcelo [facility] B&Whole Blood [facility] ([facility]), [address], [address] [place] [address] 05/31 CBC w/ auto diff RDW-C V, % % 11.6 14.4 13.8 FINAL Marcelo [facility] B&Whole Blood [facility] ([facility]), [address], [address] [place] [address] 05/31 CBC w/ auto diff PLT 10*3/u L 163.0 337.0 161.0 Low FINAL [facility] B&Whole Blood [facility] ([facility]), [address], [address] [place] [address] 06/21 CBC w/ auto diff WBC 10*3/u L 4.2 9.1 14.1 High FINAL [facility] (T), [address], [address] [place] [address] 06/21 CBC w/ auto diff Cristobal # (ANC) 10*3/u L 1.78 5.38 10.63 High FINAL [facility] (T), [address], [address] [place] [address] 06/21 CBC w/ auto diff LY # 10*3/u L 1.32 3.57 2.09 FINAL [facility] (T), [address], [address] [place], [place] [id number] 06/21 CBC w/ auto diff MO # 10*3/u L 0.3 0.82 1.34 High FINAL [facility] ([facility]), [address], [address] [place], [place] [id number] 06/21 CBC w/ auto diff EO # 10*3/u lL 0.04 0.54 0.03 Low FINAL [facility] ([facility]), [address], [address] [facility] [address] 06/21 CBC w/ auto diff BA # 10*3/u L 0.01 0.08 0.02 FINAL [facility] ([facility]), [address], [address] [place] [address] 06/21 CBC w/ auto diff Cristobal % % 34.0 67.9 75.4 High FINAL Marcelo [facility] ([facility]), [address], [address] [place] [address] 06/21 CBC w/ auto diff LY % % 21.8 53.1 14.8 Low FINAL Marcelo [facility] ([facility]), [address], [address] [place] [address] 06/21 CBC w/ auto diff MO % % 5.3 12.2 9.5 FINAL Marcelo [facility] ([facility]), [address], [address] [place] [address] 06/21 CBC w/ auto diff EO % % 0.8 7.0 0.2 Low FINAL Marcelo [facility] ([facility]), [address], [address] [place] [address] 06/21 CBC w/ auto diff BA % % 0.2 1.2 0.1 Low FINAL Marcelo [facility] ([facility]), [address], [address] [place] [address] 06/21 CBC w/ auto diff RBC 10*6/u L 4.63 6.08 4.90 FINAL Marcelo [facility] ([facility]), [address], [address] [place] [address] 06/21 CBC w/ auto diff HGB g/dL 13.7 17.5 16.0 FINAL Marcelo [facility] ([facility]), [address], [address] [place] [address] 06/21 CBC w/ auto diff HCT % 40.1 51.0 47.5 FINAL Marcelo [facility] ([facility]), [address], [address] [place] [address] 06/21 CBC w/ auto diff MCV fL 79.0 92.2 96.9 High FINAL Marcelo [facility] ([facility]), [address], [address] [place] [address] 06/21 CBC w/ auto diff MCH pg 25.7 32.2 32.7 High FINAL [facility] ([facility]), [address], [address] [facility] [address] 06/21 CBC w/ auto diff MCHC g/dL 32.3 36.5 33.7 FINAL [facility] (T), [address], [address] [facility] [address] 06/21 CBC w/ auto diff RDW-C V, % % 11.6 14.4 14.0 FINAL [facility] (T), [address], [address] [facility] [address] 06/21 CBC w/ auto diff PLT 10*3/u L 163.0 337.0 185.0 FINAL [facility] ([facility]), [address], [address] [facility] [address] 07/23 Lab Repor t See health concierge d Medications Date Name Route Dose Frequency Instructions Start Date End Date Status Fill Status Indication 12/22 Sitagli ptin-Me tformin Oral 50 mg-1,00 0 mg orally 1.0 2 times per day active 12/22 Aspirin Oral orally 81.0 mg daily active 12/22 Insulin Detemir Subcuta neous 100 unit/mL subcutan eously 36.0 every evening active 12/22 Cyanoco balamin Oral orally 5000.0 mcg daily active 12/22 [place] 3-DHA-E PA-Fish Oil Oral Liquid 1,600 mg-500 [...] Print Location: Unknown Date/Time Printed: 10/19/2025 17:06 ([facility]) Patient: VALERIE PUENTES Sex: Male [...] Selected Billing Code(s): PHLEBOTOMY THERAPEUTIC SEPARATE PROCEDURE (65400) Entered By Barbara Casas RN; Incident to Marcelo Olson MD
--- OUTSIDE RECORDS SUMMARY | 2025-10-19 17:07 | XMS_ITS ---
Author Name Interface, [id number] lity Address [address] [place] [address] Organization [facility] Address [address] [place] [address] Allergies and Adverse Reactions Medication/Group Name Reaction [...] L 4.2 9.1 14.1 High FINAL Marcelo [facility] ([facility]), [address], [address] [facility] [address] 06/21 CBC w/ auto diff Cristobal # (ANC) 10*3/u L 1.78 5.38 10.63 High FINAL Marcelo [facility] ([facility]), [address], [address] [facility] [address] 06/21 CBC w/ auto diff LY # 10*3/u L 1.32 3.57 2.09 FINAL [facility] ([facility]), [address], [address] [facility] [address] 06/21 CBC w/ auto diff MO # 10*3/u L 0.3 0.82 1.34 High FINAL Marcelo [facility] ([facility]), [address], [address] [place] [address] 06/21 CBC w/ auto diff EO # 10*3/u lL 0.04 0.54 0.03 Low FINAL Marcelo [facility] ([facility]), [address], [address] [place] [address] 06/21 CBC w/ auto diff BA # 10*3/u L 0.01 0.08 0.02 FINAL Marcelo [facility] ([facility]), [address], [address] [place] [address] 06/21 CBC w/ auto diff Cristobal % % 34.0 67.9 75.4 High FINAL Marcelo [facility] ([facility]), [address], [address] [place] [address] 06/21 CBC w/ auto diff LY % % 21.8 53.1 14.8 Low FINAL Marcelo [facility] ([facility]), [address], [address] [place] [address] 06/21 CBC w/ auto diff MO % % 5.3 12.2 9.5 FINAL Marcelo [facility] ([facility]), [address], [address] [place] [address] 06/21 CBC w/ auto diff EO % % 0.8 7.0 0.2 Low FINAL Marcelo [facility] ([facility]), [address], [address] [place] [address] 06/21 CBC w/ auto diff BA % % 0.2 1.2 0.1 Low FINAL Marcelo [facility] ([facility]), [address], [address] [place] [address] 06/21 CBC w/ auto diff RBC 10*6/u L 4.63 6.08 4.90 FINAL Marcelo [facility] ([facility]), [address], [address] [place] [address] 06/21 CBC w/ auto diff HGB g/dL 13.7 17.5 16.0 FINAL [facility] ([facility]), [address], [address] [place] [address] 06/21 CBC w/ auto diff HCT % 40.1 51.0 47.5 FINAL [facility] ([facility]), [address], [address] [place] [address] 06/21 CBC w/ auto diff MCV fL 79.0 92.2 96.9 High FINAL [facility] ([facility]), [address], [address] [place], [place] [address] 06/21 CBC w/ auto diff MCH pg 25.7 32.2 32.7 High FINAL [facility] ([facility]), [address], [address] [place] [address] 06/21 CBC w/ auto diff MCHC g/dL 32.3 36.5 33.7 FINAL [facility] ([facility]), [address], [address] [facility] [address] 06/21 CBC w/ auto diff RDW-C V, % % 11.6 14.4 14.0 FINAL [facility] ([facility]), [address], [address] [facility] [address] 06/21 CBC w/ auto diff PLT 10*3/u L 163.0 337.0 185.0 FINAL [facility] ([facility]), [address], [address] [place], [place] [address] 07/23 Lab Repor t See digital marketing consultant d Medications Date Name Route Dose Frequency Instructions Start Date End Date Status Fill Status Indication 12/22 Sitagli ptin-Me tformin Oral 50 mg-1,00 0 mg orally 1.0 2 times per day active 12/22 Aspirin Oral orally 81.0 mg daily active 12/22 Insulin Detemir Subcuta neous 100 unit/mL subcutan eously 36.0 every evening active 12/22 Cyanoco balamin Oral orally 5000.0 mcg daily active 12/22 [place] 3-DHA-E PA-Fish Oil Oral Liquid 1,600 mg-500 [...]
--- OUTSIDE RECORDS SUMMARY | 2025-10-19 17:07 | XMS_ITS ---
Author Name Interface, [id number] lity Address [address] [place] [address] Organization [facility] Address [address] [place] [address] Allergies and Adverse Reactions Medication/Group Name Reaction [...] L 4.2 9.1 14.1 High FINAL Marcelo [facility] ([facility]), [address], [address] [facility] [address] 06/21 CBC w/ auto diff Cristobal # (ANC) 10*3/u L 1.78 5.38 10.63 High FINAL Marcelo [facility] ([facility]), [address], [address] [facility] [address] 06/21 CBC w/ auto diff LY # 10*3/u L 1.32 3.57 2.09 FINAL [facility] ([facility]), [address], [address] [facility] [address] 06/21 CBC w/ auto diff MO # 10*3/u L 0.3 0.82 1.34 High FINAL Marcelo [facility] ([facility]), [address], [address] [place] [address] 06/21 CBC w/ auto diff EO # 10*3/u lL 0.04 0.54 0.03 Low FINAL Marcelo [facility] ([facility]), [address], [address] [place] [address] 06/21 CBC w/ auto diff BA # 10*3/u L 0.01 0.08 0.02 FINAL Marcelo [facility] ([facility]), [address], [address] [place] [address] 06/21 CBC w/ auto diff Cristobal % % 34.0 67.9 75.4 High FINAL Marcelo [facility] ([facility]), [address], [address] [place] [address] 06/21 CBC w/ auto diff LY % % 21.8 53.1 14.8 Low FINAL Marcelo [facility] ([facility]), [address], [address] [place] [address] 06/21 CBC w/ auto diff MO % % 5.3 12.2 9.5 FINAL Marcelo [facility] ([facility]), [address], [address] [place] [address] 06/21 CBC w/ auto diff EO % % 0.8 7.0 0.2 Low FINAL Marcelo [facility] ([facility]), [address], [address] [place] [address] 06/21 CBC w/ auto diff BA % % 0.2 1.2 0.1 Low FINAL Marcelo [facility] ([facility]), [address], [address] [place] [address] 06/21 CBC w/ auto diff RBC 10*6/u L 4.63 6.08 4.90 FINAL Marcelo [facility] ([facility]), [address], [address] [place] [address] 06/21 CBC w/ auto diff HGB g/dL 13.7 17.5 16.0 FINAL [facility] ([facility]), [address], [address] [place] [address] 06/21 CBC w/ auto diff HCT % 40.1 51.0 47.5 FINAL [facility] ([facility]), [address], [address] [place] [address] 06/21 CBC w/ auto diff MCV fL 79.0 92.2 96.9 High FINAL [facility] ([facility]), [address], [address] [place], [place] [address] 06/21 CBC w/ auto diff MCH pg 25.7 32.2 32.7 High FINAL [facility] ([facility]), [address], [address] [place] [address] 06/21 CBC w/ auto diff MCHC g/dL 32.3 36.5 33.7 FINAL [facility] ([facility]), [address], [address] [facility] [address] 06/21 CBC w/ auto diff RDW-C V, % % 11.6 14.4 14.0 FINAL [facility] ([facility]), [address], [address] [facility] [address] 06/21 CBC w/ auto diff PLT 10*3/u L 163.0 337.0 185.0 FINAL [facility] ([facility]), [address], [address] [place], [place] [address] 07/23 Lab Repor t See horse doctor d Medications Date Name Route Dose Frequency Instructions Start Date End Date Status Fill Status Indication 12/22 Sitagli ptin-Me tformin Oral 50 mg-1,00 0 mg orally 1.0 2 times per day active 12/22 Aspirin Oral orally 81.0 mg daily active 12/22 Insulin Detemir Subcuta neous 100 unit/mL subcutan eously 36.0 every evening active 12/22 Cyanoco balamin Oral orally 5000.0 mcg daily active 12/22 [place] 3-DHA-E PA-Fish Oil Oral Liquid 1,600 mg-500 [...]
--- OUTSIDE RECORDS SUMMARY | 2025-10-19 17:07 | XMS_ITS ---
Author Name Interface, [id number] lity Address [address] [place] [address] Organization [facility] Address [address] [place] [address] Allergies and Adverse Reactions Medication/Group Name Reaction [...] 9.1 High FINAL Marcelo Olson B&Whole Blood [facility] ([facility]), [address] [place], [address] [place] [address] 07/20 CBC w/ auto diff Cristobal # (ANC) 10*3/u L 1.78 5.38 4.47 FINAL Marcelo Olson B&Whole Blood [facility] ([facility]), [address] [place], Suite [facility] [place] [facility] 07/20 CBC w/ auto diff LY # 10*3/u L 1.32 3.57 3.40 FINAL Marcelo Olson B&Whole Blood [facility] ([facility]), [address] [place], [address] [place], [place] [id number] 07/20 CBC w/ auto diff MO # 10*3/u L 0.3 0.82 0.80 FINAL Marcelo Olson B&Whole Blood [facility] ([facility]), [address] [place], [address] [facility] [place] [address] 07/20 CBC w/ auto diff EO # 10*3/u lL 0.04 0.54 0.38 FINAL Marcelo Olson B&Whole Blood [facility] ([facility]), [address] [place], [address] [facility] [place] [address] 07/20 CBC w/ auto diff BA # 10*3/u L 0.01 0.08 0.03 FINAL Marcelo Funez&Whole Blood [facility] ([facility]), [address] [place], [address] [place] [address] 07/20 CBC w/ auto diff Cristobal % % 34.0 67.9 49.3 FINAL Marcelo Herms B&Whole Blood [facility] ([facility]), [address] [place], [address] [place] [address] 07/20 CBC w/ auto diff LY % % 21.8 53.1 37.4 FINAL Marcelo Herms B&Whole Blood [facility] (T), [address] [place], [address] [place] [address] 07/20 CBC w/ auto diff MO % % 5.3 12.2 8.8 FINAL Marcelo Herms B&Whole Blood [facility] ([facility]), [address] [place], [address] [place] [address] 07/20 CBC w/ auto diff EO % % 0.8 7.0 4.2 FINAL Marcelo Herms B&Whole Blood [facility] ([facility]), [address] [place], [address] [place] [address] 07/20 CBC w/ auto diff BA % % 0.2 1.2 0.3 FINAL Marcelo Herms B&Whole Blood [facility] ([facility]), [address] [place], [address] [place] [address] 07/20 CBC w/ auto diff RBC 10*6/u L 4.63 6.08 5.60 FINAL Marcelo Herms B&Whole Blood [facility] ([facility]), [address] [place], [address] [place] [address] 07/20 CBC w/ auto diff HGB g/dL 13.7 17.5 18.2 High FINAL Marcelo Herms B&Whole Blood [facility] ([facility]), [address] [place], [address] [place] [address] 07/20 CBC w/ auto diff HCT % 40.1 51.0 52.8 High FINAL Marcelo Herms B&Whole Blood [facility] ([facility]), [address] [place], [address] [place] [address] 07/20 CBC w/ auto diff MCV fL 79.0 92.2 94.3 High FINAL Marcelo Herms B&Whole Blood [facility] ([facility]), [address] [place], [address] [place] [address] 07/20 CBC w/ auto diff MCH pg 25.7 32.2 32.5 High FINAL Marcelo Herms B&Whole Blood [facility] ([facility]), [address] [place], [address] [place] [address] 07/20 CBC w/ auto diff MCHC g/dL 32.3 36.5 34.5 FINAL Marcelo Herms B&Whole Blood [facility] ([facility]), [address] [place], [address] [place] [address] 07/20 CBC w/ auto diff RDW-C V, % % 11.6 14.4 12.5 FINAL Marcelo Herms B&Whole Blood [facility] ([facility]), [address] [place], [address] [place] [address] 07/20 CBC w/ auto diff PLT 10*3/u L 163.0 337.0 160.0 Low FINAL Marcelo Herms B&Whole Blood [facility] ([facility]), [address] [place], [address] [place] [address] 11/09 CBC w/ auto diff WBC 10*3/u [...] Blood 5 02/12 Lab Repor t See financial counselor d 02/15 CBC w/ auto diff WBC 10*3/u L 4.2 9.1 8.8 FINAL Marcelo Olson B&Whole Blood [facility] ([facility]), [address] [place], [address] [place] [address] 02/15 CBC w/ auto diff Cristobal # (ANC) 10*3/u L 1.78 5.38 4.12 FINAL Marcelo Mahmoods B&Whole Blood [facility] ([facility]), [address] [place], [address] [facility] [place] [address] 02/15 CBC w/ auto diff LY # 10*3/u L 1.32 3.57 3.32 FINAL Marcelo Mahmoods B&Whole Blood [facility] ([facility]), [address] [place], [address] [facility] [place] [address] 02/15 CBC w/ auto diff MO # 10*3/u L 0.3 0.82 0.96 High FINAL Marcelo Mahmoods B&Whole Blood [facility] ([facility]), [address] [place], [address] [facility] [place] [address] 02/15 CBC w/ auto diff EO # 10*3/u lL 0.04 0.54 0.36 FINAL Marcelo Mahmoods B&Whole Blood [facility] ([facility]), [address] [place], [address] [facility] [place] [address] 02/15 CBC w/ auto diff BA # 10*3/u L 0.01 0.08 0.04 FINAL Marcelo Mahmoods B&Whole Blood [facility] ([facility]), [address] [place], [address] [facility] [place] [address] 02/15 CBC w/ auto diff Cristobal % % 34.0 67.9 46.8 FINAL Marcelo Mahmoods B&Whole Blood [facility] ([facility]), [address] [place], [address] [facility] [place] [facility] 02/15 CBC w/ auto diff LY % % 21.8 53.1 37.7 FINAL Marcelo Mahmoods B&Whole Blood [facility] ([facility]), [address] [place], [address] [facility] [place] [address] 02/15 CBC w/ auto diff MO % % 5.3 12.2 10.9 FINAL Marcelo Mahmoods B&Whole Blood [facility] ([facility]), [address] [place], [address] [facility] [place] [address] 02/15 CBC w/ auto diff EO % % 0.8 7.0 4.1 FINAL Marcelo Mahmoods B&Whole Blood [facility] ([facility]), [address] [place], [address] [facility] [place] [address] 02/15 CBC w/ auto diff BA % % 0.2 1.2 0.5 FINAL Marcelo Mahmoods B&Whole Blood [facility] ([facility]), [address] [place], [address] [facility] [place] [address] 02/15 CBC w/ auto diff RBC 10*6/u L 4.63 6.08 5.33 FINAL Marcelo Olson B&Whole Blood [facility] ([facility]), [address] [place], [address] [facility] [place] [facility] 02/15 CBC w/ auto diff HGB g/dL 13.7 17.5 17.4 FINAL Marcelo Olson B&Whole Blood [facility] ([facility]), [address] [place], [address] [facility] [place] [facility] 02/15 CBC w/ auto diff HCT % 40.1 51.0 50.4 FINAL Marcelo Olson B&Whole Blood [facility] ([facility]), [address] [place], [address] [place] [address] 02/15 CBC w/ auto diff MCV fL 79.0 92.2 94.6 High FINAL Marcelo Mahmoods B&Whole Blood [facility] ([facility]), [address] [place], [address] [place] [address] 02/15 CBC w/ auto diff MCH pg 25.7 32.2 32.6 High FINAL Marcelo Olson B&Whole Blood [facility] ([facility]), [address] [place], [address] [place] [address] 02/15 CBC w/ auto diff MCHC g/dL 32.3 36.5 34.5 FINAL Marcelo Olson B&Whole Blood [facility] ([facility]), [address] [place], [address] [place] [address] 02/15 CBC w/ auto diff RDW-C V, % % 11.6 14.4 14.0 FINAL Marcelo Olson B&Whole Blood [facility] ([facility]), [address] [place], [address] [facility] [place] [facility] 02/15 CBC w/ auto diff PLT 10*3/u L 163.0 337.0 172.0 FINAL Marcelo Mahmoods B&Whole Blood [facility] ([facility]), [address] [place], [address] [facility] [place] [address] 05/31 CBC w/ auto diff WBC 10*3/u L 4.2 9.1 10.4 High FINAL Marcelo Mahmoods B&Whole Blood [facility] ([facility]), [address] [place], [address] [facility] [place] [facility] 05/31 CBC w/ auto diff Cristobal # (ANC) 10*3/u L 1.78 5.38 5.26 FINAL Marcelo Olosn B&Whole Blood [facility] ([facility]), [address] [place], [address] [place] [address] 05/31 CBC w/ auto diff LY # 10*3/u L 1.32 3.57 3.84 High FINAL Marcelo Olson B&Whole Blood [facility] ([facility]), [address] [place], [address] [place] [address] 05/31 CBC w/ auto diff MO # 10*3/u L 0.3 0.82 0.94 High FINAL Marcelo Olson B&Whole Blood [facility] ([facility]), [address] [place], [address] [place] [address] 05/31 CBC w/ auto diff EO # 10*3/u lL 0.04 0.54 0.30 FINAL Marcelo Olson B&Whole Blood [facility] ([facility]), [address] [place], [address] [place] [address] 05/31 CBC w/ auto diff BA # 10*3/u L 0.01 0.08 0.03 FINAL Marcelo Olson B&Whole Blood [facility] ([facility]), [address] [place], [address] [place] [address] 05/31 CBC w/ auto diff Cristobal % % 34.0 67.9 50.7 FINAL Marcelo Olson B&Whole Blood [facility] ([facility]), [address] [place], [address] [place] [address] 05/31 CBC w/ auto diff LY % % 21.8 53.1 37.0 FINAL Marcelo Olson B&Whole Blood [facility] ([facility]), [address] [place], [address] [place] [address] 05/31 CBC w/ auto diff MO % % 5.3 12.2 9.1 FINAL Marcelo Mahmoods B&Whole Blood [facility] ([facility]), [address] [place], [address] [place] [address] 05/31 CBC w/ auto diff EO % % 0.8 7.0 2.9 FINAL Marcelo Mahmoods B&Whole Blood [facility] ([facility]), [address] [place], [address] [place] [address] 05/31 CBC w/ auto diff BA % % 0.2 1.2 0.3 FINAL Marcelo Mahmoods B&Whole Blood [facility] ([facility]), [address] [place], [address] [place] [address] 05/31 CBC w/ auto diff RBC 10*6/u L 4.63 6.08 5.01 FINAL Marcelo Mahmoods B&Whole Blood [facility] ([facility]), [address] [place], [address] [place] [address] 05/31 CBC w/ auto diff HGB g/dL 13.7 17.5 16.4 FINAL Marcelo Mahmoods B&Whole Blood [facility] ([facility]), [address] [place], [address] [place] [address] 05/31 CBC w/ auto diff HCT % 40.1 51.0 47.5 FINAL Marcelo Mahmoods B&Whole Blood [facility] ([facility]), [address] [place], [address] [place] [address] 05/31 CBC w/ auto diff MCV fL 79.0 92.2 94.8 High FINAL Marcelo Mahmoods B&Whole Blood [facility] ([facility]), [address] [place], [address] [place] [address] 05/31 CBC w/ auto diff MCH pg 25.7 32.2 32.7 High FINAL [facility] B&Whole Blood [facility] ([facility]), [address] [place], [address] [place] [address] 05/31 CBC w/ auto diff MCHC g/dL 32.3 36.5 34.5 FINAL Marcelo Mahmoods B&Whole Blood [facility] ([facility]), [address] [place], [address] [place] [address] 05/31 CBC w/ auto diff RDW-C V, % % 11.6 14.4 13.8 FINAL Marcelo Mahmoods B&Whole Blood [facility] ([facility]), [address] [place], [address] [place] [address] 05/31 CBC w/ auto diff PLT 10*3/u L 163.0 337.0 161.0 Low FINAL Marcelo Mahmoods B&Whole Blood [facility] ([facility]), [address] [place], [address] [place] [address] 06/21 CBC w/ auto diff WBC 10*3/u L 4.2 9.1 14.1 High FINAL Marcelo [facility] ([facility]), [address] [place], [address] [place] [address] 06/21 CBC w/ auto diff Cristobal # (ANC) 10*3/u L 1.78 5.38 10.63 High FINAL Marcelo [facility] ([facility]), [address] [place], [address] [place] [address] 06/21 CBC w/ auto diff LY # 10*3/u L 1.32 3.57 2.09 FINAL Marcelo [facility] ([facility]), [address] [place], [address] [place] [address] 06/21 CBC w/ auto diff MO # 10*3/u L 0.3 0.82 1.34 High FINAL Marcelo [facility] ([facility]), [address] [place], [address] [place] [address] 06/21 CBC w/ auto diff EO # 10*3/u lL 0.04 0.54 0.03 Low FINAL Marcelo [facility] ([facility]), [address] [place], [address] [place] [address] 06/21 CBC w/ auto diff BA # 10*3/u L 0.01 0.08 0.02 FINAL Marcelo [facility] ([facility]), [address] [place], [address] [place] [address] 06/21 CBC w/ auto diff Cristobal % % 34.0 67.9 75.4 High FINAL Marcelo [facility] ([facility]), [address] [place], [address] [place] [address] 06/21 CBC w/ auto diff LY % % 21.8 53.1 14.8 Low FINAL Marcelo [facility] ([facility]), [address] [place], [address] [place] [address] 06/21 CBC w/ auto diff MO % % 5.3 12.2 9.5 FINAL Marcelo [facility] ([facility]), [address] [place], [address] [place] [address] 06/21 CBC w/ auto diff EO % % 0.8 7.0 0.2 Low FINAL [facility] ([facility]), [address] [place], [address] [place] [address] 06/21 CBC w/ auto diff BA % % 0.2 1.2 0.1 Low FINAL [facility] ([facility]), [address] [place], [address] [place] [address] 06/21 CBC w/ auto diff RBC 10*6/u L 4.63 6.08 4.90 FINAL [facility] ([facility]), [address] [place], [address] [place] [address] 06/21 CBC w/ auto diff HGB g/dL 13.7 17.5 16.0 FINAL [facility] ([facility]), [address] [place], [address] [place] [address] 06/21 CBC w/ auto diff HCT % 40.1 51.0 47.5 FINAL [facility] ([facility]), [address] [place], [address] [place] [address] 06/21 CBC w/ auto diff MCV fL 79.0 92.2 96.9 High FINAL [facility] ([facility]), [address] [place], [address] [place] [address] 06/21 CBC w/ auto diff MCH pg 25.7 32.2 32.7 High FINAL [facility] ([facility]), [address] [place], [address] [place] [address] 06/21 CBC w/ auto diff MCHC g/dL 32.3 36.5 33.7 FINAL [facility] ([facility]), [address] [place], [address] [place] [address] 06/21 CBC w/ auto diff RDW-C V, % % 11.6 14.4 14.0 FINAL [facility] ([facility]), [address] [place], [address] [place] [address] 06/21 CBC w/ auto diff PLT 10*3/u L 163.0 337.0 185.0 FINAL Marcelo Olson [facility] ([facility]), [address] [place], [address] [facility] [address] 07/23 Lab Repor t See financial counselor d Medications Date Name Route Dose Frequency Instructions Start Date End Date Status Fill Status Indication 12/22 Sitagli ptin-Me tformin Oral 50 mg-1,00 0 mg orally 1.0 2 times per day active 12/22 Aspirin Oral orally 81.0 mg daily active 12/22 Insulin Detemir Subcuta neous 100 unit/mL subcutan eously 36.0 every evening active 12/22 Cyanoco balamin Oral orally 5000.0 mcg daily active 12/22 [place] 3-DHA-E PA-Fish Oil Oral Liquid 1,600 mg-500 [...] Unknown Date/Time Printed: 10/19/2025 17:07 (Lauren/[facility]) Patient: VALERIE PUENTES Sex: Male : [...] Selected Billing Code(s): PHLEBOTOMY THERAPEUTIC SEPARATE PROCEDURE (04360) Entered By Barbara Casas RN; Incident to Marcelo Olson MD * Nurse Note for: 09-NOV-19 [facility] Nurse Note Print Location: Unknown Date/Time Printed: 10/19/2025 17:07 ([facility]ua[facility]) Patient: VALERIE PUENTES Sex: Male : [...] Selected Billing Code(s): PHLEBOTOMY THERAPEUTIC SEPARATE PROCEDURE (52446) Entered By Ju Gupta RN; Incident to Marcelo Olson MD * Nurse Note for: 20-JUL-19 [facility] Nurse Note Print Location: Unknown Date/Time Printed: 10/19/2025 17:07 ([facility]ren/[facility]) Patient: VALERIE PUENTES Sex: Male : [...] Selected Billing Code(s): PHLEBOTOMY THERAPEUTIC SEPARATE PROCEDURE (04580) Entered By Barbara Garcia RN; Incident to Marcelo Olson MD
--- OUTSIDE RECORDS SUMMARY | 2025-10-19 17:07 | XMS_ITS ---
Author Name Interface, [id number] lity Address [address] [place] [address] Organization [facility] Address [address] [place] [address] Allergies and Adverse Reactions Medication/Group Name Reaction [...] FINAL Marcelo Olson B&Whole Blood [facility] ([facility]), [address], [address] [place] [address] 07/20 CBC w/ auto diff Cristobal # (ANC) 10*3/u L 1.78 5.38 4.47 FINAL Marcelo Olson B&Whole Blood [facility] ([facility]), [address], Suite [facility] [place] [facility] 07/20 CBC w/ auto diff LY # 10*3/u L 1.32 3.57 3.40 FINAL Marcelo Olson B&Whole Blood [facility] ([facility]), [address], [address] [place], [place] [id number] 07/20 CBC w/ auto diff MO # 10*3/u L 0.3 0.82 0.80 FINAL Marcelo Olson B&Whole Blood [facility] ([facility]), [address], [place] [facility] [place] [address] 07/20 CBC w/ auto diff EO # 10*3/u lL 0.04 0.54 0.38 FINAL Marcelo Olson B&Whole Blood [facility] ([facility]), [address], [place] [facility] [place] [address] 07/20 CBC w/ auto diff BA # 10*3/u L 0.01 0.08 0.03 FINAL Marcelo Funez&Whole Blood [facility] (T), [address], [address] [place] [address] 07/20 CBC w/ auto diff Cristobal % % 34.0 67.9 49.3 FINAL Marcelo Herms B&Whole Blood [facility] ([facility]), [address], [address] [place] [address] 07/20 CBC w/ auto diff LY % % 21.8 53.1 37.4 FINAL Marcelo Herms B&Whole Blood [facility] (T), [address], [address] [place] [address] 07/20 CBC w/ auto diff MO % % 5.3 12.2 8.8 FINAL Marcelo Herms B&Whole Blood [facility] (T), [address], [address] [place] [address] 07/20 CBC w/ auto diff EO % % 0.8 7.0 4.2 FINAL Marcelo Herms B&Whole Blood [facility] (T), [address], [address] [place] [address] 07/20 CBC w/ auto diff BA % % 0.2 1.2 0.3 FINAL Marcelo Herms B&Whole Blood [facility] (T), [address], [address] [place] [address] 07/20 CBC w/ auto diff RBC 10*6/u L 4.63 6.08 5.60 FINAL Marcelo Herms B&Whole Blood [facility] (T), [address], [address] [place] [address] 07/20 CBC w/ auto diff HGB g/dL 13.7 17.5 18.2 High FINAL Marcelo Herms B&Whole Blood [facility] (T), [address], [address] [place] [address] 07/20 CBC w/ auto diff HCT % 40.1 51.0 52.8 High FINAL Marcelo Herms B&Whole Blood [facility] ([facility]), [address], [address] [place] [address] 07/20 CBC w/ auto diff MCV fL 79.0 92.2 94.3 High FINAL Marcelo Herms B&Whole Blood [facility] ([facility]), [address], [address] [place] [address] 07/20 CBC w/ auto diff MCH pg 25.7 32.2 32.5 High FINAL Marcelo Herms B&Whole Blood [facility] ([facility]), [address], [address] [place] [address] 07/20 CBC w/ auto diff MCHC g/dL 32.3 36.5 34.5 FINAL Marcelo Herms B&Whole Blood [facility] ([facility]), [address], [address] [place] [address] 07/20 CBC w/ auto diff RDW-C V, % % 11.6 14.4 12.5 FINAL Marcelo Herms B&Whole Blood [facility] ([facility]), [address], [address] [place] [address] 07/20 CBC w/ auto diff PLT 10*3/u L 163.0 337.0 160.0 Low FINAL Marcelo Herms B&Whole Blood [facility] ([facility]), [address], [address] [place] [address] 11/09 CBC w/ auto diff WBC 10*3/u [...] Blood 5 02/12 Lab Repor t See respiratory therapy director d 02/15 CBC w/ auto diff WBC 10*3/u L 4.2 9.1 8.8 FINAL Marcelo Olson B&Whole Blood [facility] ([facility]), [address], [address] [place] [address] 02/15 CBC w/ auto diff Cristobal # (ANC) 10*3/u L 1.78 5.38 4.12 FINAL Marcelo Mahmoods B&Whole Blood [facility] ([facility]), [address], [place] [facility] [place] [address] 02/15 CBC w/ auto diff LY # 10*3/u L 1.32 3.57 3.32 FINAL Marcelo Mahmoods B&Whole Blood [facility] ([facility]), [address], [place] [facility] [place] [address] 02/15 CBC w/ auto diff MO # 10*3/u L 0.3 0.82 0.96 High FINAL Marcelo Mahmoods B&Whole Blood [facility] ([facility]), [address], [place] [facility] [place] [address] 02/15 CBC w/ auto diff EO # 10*3/u lL 0.04 0.54 0.36 FINAL Marcelo Mahmoods B&Whole Blood [facility] (T), [address], [place] [facility] [place] [address] 02/15 CBC w/ auto diff BA # 10*3/u L 0.01 0.08 0.04 FINAL Marcelo Mahmoods B&Whole Blood [facility] ([facility]), [address], [place] [facility] [place] [address] 02/15 CBC w/ auto diff Cristobal % % 34.0 67.9 46.8 FINAL Marcelo Mahmoods B&Whole Blood [facility] ([facility]), [address], [address] [facility] [place] [facility] 02/15 CBC w/ auto diff LY % % 21.8 53.1 37.7 FINAL Marcelo Mahmoods B&Whole Blood [facility] ([facility]), [address], [place] [facility] [place] [address] 02/15 CBC w/ auto diff MO % % 5.3 12.2 10.9 FINAL Marcelo Mahmoods B&Whole Blood [facility] ([facility]), [address], [place] [facility] [place] [address] 02/15 CBC w/ auto diff EO % % 0.8 7.0 4.1 FINAL Marcelo Mahmoods B&Whole Blood [facility] ([facility]), [address], [place] [facility] [place] [address] 02/15 CBC w/ auto diff BA % % 0.2 1.2 0.5 FINAL Marcelo Mahmoods B&Whole Blood [facility] ([facility]), [address], [place] [facility] [place] [address] 02/15 CBC w/ auto diff RBC 10*6/u L 4.63 6.08 5.33 FINAL Marcelo Olson B&Whole Blood [facility] ([facility]), [address], [address] [facility] [place] [facility] 02/15 CBC w/ auto diff HGB g/dL 13.7 17.5 17.4 FINAL Marcelo Olson B&Whole Blood [facility] ([facility]), [address], [address] [facility] [place] [facility] 02/15 CBC w/ auto diff HCT % 40.1 51.0 50.4 FINAL Marcelo Olson B&Whole Blood [facility] ([facility]), [address], [address] [place] [address] 02/15 CBC w/ auto diff MCV fL 79.0 92.2 94.6 High FINAL Marcelo Mahmoods B&Whole Blood [facility] ([facility]), [address], [address] [place] [address] 02/15 CBC w/ auto diff MCH pg 25.7 32.2 32.6 High FINAL Marcelo Olson B&Whole Blood [facility] ([facility]), [address], [address] [place] [address] 02/15 CBC w/ auto diff MCHC g/dL 32.3 36.5 34.5 FINAL Marcelo Olson B&Whole Blood [facility] ([facility]), [address], [address] [place] [address] 02/15 CBC w/ auto diff RDW-C V, % % 11.6 14.4 14.0 FINAL Marcelo Olson B&Whole Blood [facility] ([facility]), [address], [address] [facility] [place] [facility] 02/15 CBC w/ auto diff PLT 10*3/u L 163.0 337.0 172.0 FINAL Marcelo Mahmoods B&Whole Blood [facility] ([facility]), [address], [place] [facility] [place] [address] 05/31 CBC w/ auto diff WBC 10*3/u L 4.2 9.1 10.4 High FINAL Marcelo Mahmoods B&Whole Blood [facility] ([facility]), [address], [address] [facility] [place] [facility] 05/31 CBC w/ auto diff Cristobal # (ANC) 10*3/u L 1.78 5.38 5.26 FINAL Marcelo Olson B&Whole Blood [facility] (T), [address], [address] [place] [address] 05/31 CBC w/ auto diff LY # 10*3/u L 1.32 3.57 3.84 High FINAL Marcelo Olson B&Whole Blood [facility] (T), [address], [address] [place] [address] 05/31 CBC w/ auto diff MO # 10*3/u L 0.3 0.82 0.94 High FINAL Marcelo Olson B&Whole Blood [facility] (T), [address], [address] [place] [address] 05/31 CBC w/ auto diff EO # 10*3/u lL 0.04 0.54 0.30 FINAL Marcelo Olson B&Whole Blood [facility] (T), [address], [address] [place] [address] 05/31 CBC w/ auto diff BA # 10*3/u L 0.01 0.08 0.03 FINAL Marcelo Olson B&Whole Blood [facility] (T), [address], [address] [place] [address] 05/31 CBC w/ auto diff Cristobal % % 34.0 67.9 50.7 FINAL Marcelo Olson B&Whole Blood [facility] (T), [address], [address] [place] [address] 05/31 CBC w/ auto diff LY % % 21.8 53.1 37.0 FINAL Marcelo Olson B&Whole Blood [facility] (T), [address], [address] [place] [address] 05/31 CBC w/ auto diff MO % % 5.3 12.2 9.1 FINAL Marcelo Mahmoods B&Whole Blood [facility] (T), [address], [address] [place] [address] 05/31 CBC w/ auto diff EO % % 0.8 7.0 2.9 FINAL Marcelo Mahmoods B&Whole Blood [facility] ([facility]), [address], [address] [place] [address] 05/31 CBC w/ auto diff BA % % 0.2 1.2 0.3 FINAL Marcelo Mahmoods B&Whole Blood [facility] ([facility]), [address], [address] [place] [address] 05/31 CBC w/ auto diff RBC 10*6/u L 4.63 6.08 5.01 FINAL Marcelo Mahmoods B&Whole Blood [facility] ([facility]), [address], [address] [place] [address] 05/31 CBC w/ auto diff HGB g/dL 13.7 17.5 16.4 FINAL Marcelo Mahmoods B&Whole Blood [facility] ([facility]), [address], [address] [place] [address] 05/31 CBC w/ auto diff HCT % 40.1 51.0 47.5 FINAL Marcelo Mahmoods B&Whole Blood [facility] ([facility]), [address], [address] [place] [address] 05/31 CBC w/ auto diff MCV fL 79.0 92.2 94.8 High FINAL Marcelo Mahmoods B&Whole Blood [facility] ([facility]), [address], [address] [place] [address] 05/31 CBC w/ auto diff MCH pg 25.7 32.2 32.7 High FINAL [facility] B&Whole Blood [facility] ([facility]), [address], [address] [place] [address] 05/31 CBC w/ auto diff MCHC g/dL 32.3 36.5 34.5 FINAL Marcelo Mahmoods B&Whole Blood [facility] ([facility]), [address], [address] [place] [address] 05/31 CBC w/ auto diff RDW-C V, % % 11.6 14.4 13.8 FINAL Marcelo Mahmoods B&Whole Blood [facility] ([facility]), [address], [address] [place] [address] 05/31 CBC w/ auto diff PLT 10*3/u L 163.0 337.0 161.0 Low FINAL Marcelo Mahmoods B&Whole Blood [facility] ([facility]), [address], [address] [place] [address] 06/21 CBC w/ auto diff WBC 10*3/u L 4.2 9.1 14.1 High FINAL Marcelo [facility] ([facility]), [address], [address] [place] [address] 06/21 CBC w/ auto diff Cristobal # (ANC) 10*3/u L 1.78 5.38 10.63 High FINAL Marcelo [facility] ([facility]), [address], [address] [place] [address] 06/21 CBC w/ auto diff LY # 10*3/u L 1.32 3.57 2.09 FINAL Marcelo [facility] ([facility]), [address], [address] [place] [address] 06/21 CBC w/ auto diff MO # 10*3/u L 0.3 0.82 1.34 High FINAL Marcelo [facility] ([facility]), [address], [address] [place] [address] 06/21 CBC w/ auto diff EO # 10*3/u lL 0.04 0.54 0.03 Low FINAL Marcelo [facility] ([facility]), [address], [address] [place] [address] 06/21 CBC w/ auto diff BA # 10*3/u L 0.01 0.08 0.02 FINAL Marcelo [facility] ([facility]), [address], [address] [place] [address] 06/21 CBC w/ auto diff Cristobal % % 34.0 67.9 75.4 High FINAL Marcelo [facility] ([facility]), [address], [address] [place] [address] 06/21 CBC w/ auto diff LY % % 21.8 53.1 14.8 Low FINAL Marcelo [facility] ([facility]), [address], [address] [place] [address] 06/21 CBC w/ auto diff MO % % 5.3 12.2 9.5 FINAL Marcelo [facility] ([facility]), [address], [address] [place] [address] 06/21 CBC w/ auto diff EO % % 0.8 7.0 0.2 Low FINAL [facility] ([facility]), [address], [address] [place] [address] 06/21 CBC w/ auto diff BA % % 0.2 1.2 0.1 Low FINAL [facility] ([facility]), [address], [address] [place] [address] 06/21 CBC w/ auto diff RBC 10*6/u L 4.63 6.08 4.90 FINAL [facility] ([facility]), [address], [address] [place] [address] 06/21 CBC w/ auto diff HGB g/dL 13.7 17.5 16.0 FINAL [facility] ([facility]), [address], [address] [place] [address] 06/21 CBC w/ auto diff HCT % 40.1 51.0 47.5 FINAL [facility] ([facility]), [address], [address] [place] [address] 06/21 CBC w/ auto diff MCV fL 79.0 92.2 96.9 High FINAL [facility] ([facility]), [address], [address] [place] [address] 06/21 CBC w/ auto diff MCH pg 25.7 32.2 32.7 High FINAL [facility] ([facility]), [address], [address] [place] [address] 06/21 CBC w/ auto diff MCHC g/dL 32.3 36.5 33.7 FINAL [facility] ([facility]), [address], [address] [place] [address] 06/21 CBC w/ auto diff RDW-C V, % % 11.6 14.4 14.0 FINAL [facility] ([facility]), [address], [address] [place] [address] 06/21 CBC w/ auto diff PLT 10*3/u L 163.0 337.0 185.0 FINAL Marcelo Olson [facility] Jennifer ([facility]), [address], [address] [facility] [address] 07/23 Lab Repor t See respiratory therapy director d Medications Date Name Route Dose Frequency Instructions Start Date End Date Status Fill Status Indication 12/22 Sitagli ptin-Me tformin Oral 50 mg-1,00 0 mg orally 1.0 2 times per day active 12/22 Aspirin Oral orally 81.0 mg daily active 12/22 Insulin Detemir Subcuta neous 100 unit/mL subcutan eously 36.0 every evening active 12/22 Cyanoco balamin Oral orally 5000.0 mcg daily active 12/22 [place] 3-DHA-E PA-Fish Oil Oral Liquid 1,600 mg-500 [...] Print Location: Unknown Date/Time Printed: 10/19/2025 17:07 ([facility]) Patient: [...] Selected Billing Code(s): PHLEBOTOMY THERAPEUTIC SEPARATE PROCEDURE (37947) Entered By Barbara Casas RN; Incident to Marcelo Olson MD * Nurse Note for: 09-NOV-19 [facility] Nurse Note Print Location: Unknown Date/Time Printed: 10/19/2025 17:07 ([facility]) Patient: [...] Selected Billing Code(s): PHLEBOTOMY THERAPEUTIC SEPARATE PROCEDURE (34388) Entered By Ju Gupta RN; Incident to Marcelo Olson MD * Nurse Note for: 20-JUL-19 [facility] Nurse Note Print Location: Unknown Date/Time Printed: 10/19/2025 17:07 ([facility]) Patient: [...] Selected Billing Code(s): PHLEBOTOMY THERAPEUTIC SEPARATE PROCEDURE (31743) Entered By Barbara Garcia RN; Incident to Marcelo Olson MD
--- OUTSIDE RECORDS SUMMARY | 2025-10-19 17:07 | XMS_ITS | CCD ---
Author Name Interface, [id number] lity Address [address] [id number] Organization [facility] Address [address] [place] [id number] Care Team Providers [employer] Name Role Phone Whitney HUGHES, Marcelo Munguia [...] Oral orally 25.0 mg daily active 12/22 [place] 3-DHA-E PA-Fish Oil Oral Liquid 1,600 mg-500 [...]
--- OUTSIDE RECORDS SUMMARY | 2025-10-19 17:08 | XMS_ITS ---
Author Name Interface, [id number] lity Address [address] [place] [address] Organization [facility] Address [address] [place] [address] Allergies and Adverse Reactions Medication/Group Name Reaction [...] Olson B&Whole Blood [facility] ([facility]), [address], [address] [place] [address] 02/15 CBC w/ auto diff Cristobal # (ANC) 10*3/u L 1.78 5.38 4.12 FINAL Marcelo Olson B&Whole Blood [facility] ([facility]), [address], [address] [place] [address] 02/15 CBC w/ auto diff LY # 10*3/u L 1.32 3.57 3.32 FINAL Marcelo Olson B&Whole Blood [facility] ([facility]), [address], [address] [place] [address] 02/15 CBC w/ auto diff MO # 10*3/u L 0.3 0.82 0.96 High FINAL Marcelo Olson B&Whole Blood [facility] ([facility]), [address], [address] [place] [address] 02/15 CBC w/ auto diff EO # 10*3/u lL 0.04 0.54 0.36 FINAL Marcelo Olson B&Whole Blood [facility] ([facility]), [address], [address] [place] [address] 02/15 CBC w/ auto diff BA # 10*3/u L 0.01 0.08 0.04 FINAL Marcelo Olson B&Whole Blood [facility] ([facility]), [address], [address] [place] [address] 02/15 CBC w/ auto diff Cristobal % % 34.0 67.9 46.8 FINAL Marcelo Olson B&Whole Blood [facility] ([facility]), [address], [address] [place] [address] 02/15 CBC w/ auto diff LY % % 21.8 53.1 37.7 FINAL Marcelo Mahmoods B&Whole Blood [facility] ([facility]), [address], Suite [facility] [place] [address] 02/15 CBC w/ auto diff MO % % 5.3 12.2 10.9 FINAL Marcelo Mahmoods B&Whole Blood [facility] ([facility]), [address], Suite [facility] [place] [address] 02/15 CBC w/ auto diff EO % % 0.8 7.0 4.1 FINAL Marcelo Olson B&Whole Blood [facility] ([facility]), [address], [address] [facility] [place] [facility] 02/15 CBC w/ auto diff BA % % 0.2 1.2 0.5 FINAL Marcelo Mahmoods B&Whole Blood [facility] (T), [address], [address] [facility] [place] [facility] 02/15 CBC w/ auto diff RBC 10*6/u L 4.63 6.08 5.33 FINAL Marcelo Mahmoods B&Whole Blood [facility] (T), [address], [address] [facility] [place] [facility] 02/15 CBC w/ auto diff HGB g/dL 13.7 17.5 17.4 FINAL Marcelo Olson B&Whole Blood [facility] (T), [address], [address] [facility] [place] [facility] 02/15 CBC w/ auto diff HCT % 40.1 51.0 50.4 FINAL Marcelo Mahmoods B&Whole Blood [facility] (T), [address], [address] [facility] [place] [facility] 02/15 CBC w/ auto diff MCV fL 79.0 92.2 94.6 High FINAL Marcelo Mahmoods B&Whole Blood [facility] ([facility]), [address], [address] [facility] [place] [address] 02/15 CBC w/ auto diff MCH pg 25.7 32.2 32.6 High FINAL Marcelo Mahmoods B&Whole Blood [facility] ([facility]), [address], [address] [facility] [place] [address] 02/15 CBC w/ auto diff MCHC g/dL 32.3 36.5 34.5 FINAL Marcelo Mahmoods B&Whole Blood [facility] ([facility]), [address], [address] [place] [address] 02/15 CBC w/ auto diff RDW-C V, % % 11.6 14.4 14.0 FINAL Marcelo Mahmoods B&Whole Blood [facility] (T), [address], [address] [place] [address] 02/15 CBC w/ auto diff PLT 10*3/u L 163.0 337.0 172.0 FINAL Marcelo Mahmoods B&Whole Blood [facility] ([facility]), [address], [address] [place] [address] 05/31 CBC w/ auto diff WBC 10*3/u L 4.2 9.1 10.4 High FINAL Marcelo Mahmoods B&Whole Blood [facility] ([facility]), [address], [address] [place] [address] 05/31 CBC w/ auto diff Cristobal # (ANC) 10*3/u L 1.78 5.38 5.26 FINAL Marcelo Mahmoods B&Whole Blood [facility] ([facility]), [address], [address] [place] [address] 05/31 CBC w/ auto diff LY # 10*3/u L 1.32 3.57 3.84 High FINAL Marcelo Mahmoods B&Whole Blood [facility] ([facility]), [address], [address] [place] [address] 05/31 CBC w/ auto diff MO # 10*3/u L 0.3 0.82 0.94 High FINAL Marcelo Mahmoods B&Whole Blood [facility] ([facility]), [address], [address] [place] [address] 05/31 CBC w/ auto diff EO # 10*3/u lL 0.04 0.54 0.30 FINAL Marcelo Mahmoods B&Whole Blood [facility] ([facility]), [address], [address] [place] [address] 05/31 CBC w/ auto diff BA # 10*3/u L 0.01 0.08 0.03 FINAL Marcelo Herms B&Whole Blood [facility] ([facility]), [address], [address] [place] [address] 05/31 CBC w/ auto diff Cristobal % % 34.0 67.9 50.7 FINAL Marcelo Herms B&Whole Blood [facility] (T), [address], [address] [facility] [place] [facility] 05/31 CBC w/ auto diff LY % % 21.8 53.1 37.0 FINAL Marcelo Olson B&Whole Blood [facility] (T), [address], [address] [place] [address] 05/31 CBC w/ auto diff MO % % 5.3 12.2 9.1 FINAL Marcelo Olson B&Whole Blood [facility] (T), [address], [address] [place] [address] 05/31 CBC w/ auto diff EO % % 0.8 7.0 2.9 FINAL Marcelo Olson B&Whole Blood [facility] (T), [address], [address] [place] [address] 05/31 CBC w/ auto diff BA % % 0.2 1.2 0.3 FINAL Marcelo Olson B&Whole Blood [facility] (T), [address], [address] [place] [address] 05/31 CBC w/ auto diff RBC 10*6/u L 4.63 6.08 5.01 FINAL Marcelo Olson B&Whole Blood [facility] (T), [address], [address] [place] [address] 05/31 CBC w/ auto diff HGB g/dL 13.7 17.5 16.4 FINAL Marcelo Olson B&Whole Blood [facility] (T), [address], [address] [place] [address] 05/31 CBC w/ auto diff HCT % 40.1 51.0 47.5 FINAL Marcelo Olson B&Whole Blood [facility] (T), [address], [address] [place] [address] 05/31 CBC w/ auto diff MCV fL 79.0 92.2 94.8 High FINAL Marcelo Olson B&Whole Blood [facility] (T), [address], [address] [place] [address] 05/31 CBC w/ auto diff MCH pg 25.7 32.2 32.7 High FINAL Marcelo Olson B&Whole Blood [facility] (T), [address], [address] [place] [address] 05/31 CBC w/ auto diff MCHC g/dL 32.3 36.5 34.5 FINAL Marcelo [facility] B&Whole Blood [facility] ([facility]), [address], [address] [place] [address] 05/31 CBC w/ auto diff RDW-C V, % % 11.6 14.4 13.8 FINAL Marcelo [facility] B&Whole Blood [facility] ([facility]), [address], [address] [place] [address] 05/31 CBC w/ auto diff PLT 10*3/u L 163.0 337.0 161.0 Low FINAL [facility] B&Whole Blood [facility] ([facility]), [address], [address] [place] [address] 06/21 CBC w/ auto diff WBC 10*3/u L 4.2 9.1 14.1 High FINAL [facility] (T), [address], [address] [place] [address] 06/21 CBC w/ auto diff Cristobal # (ANC) 10*3/u L 1.78 5.38 10.63 High FINAL [facility] (T), [address], [address] [place] [address] 06/21 CBC w/ auto diff LY # 10*3/u L 1.32 3.57 2.09 FINAL [facility] (T), [address], [address] [place], [place] [id number] 06/21 CBC w/ auto diff MO # 10*3/u L 0.3 0.82 1.34 High FINAL [facility] ([facility]), [address], [address] [place], [place] [id number] 06/21 CBC w/ auto diff EO # 10*3/u lL 0.04 0.54 0.03 Low FINAL [facility] ([facility]), [address], [address] [facility] [address] 06/21 CBC w/ auto diff BA # 10*3/u L 0.01 0.08 0.02 FINAL [facility] ([facility]), [address], [address] [place] [address] 06/21 CBC w/ auto diff Cristobal % % 34.0 67.9 75.4 High FINAL Marcelo [facility] ([facility]), [address], [address] [place] [address] 06/21 CBC w/ auto diff LY % % 21.8 53.1 14.8 Low FINAL Marcelo [facility] ([facility]), [address], [address] [place] [address] 06/21 CBC w/ auto diff MO % % 5.3 12.[address] [facility] ([facility]), [address], [address] [place] [address] 06/21 CBC w/ auto diff EO % % 0.8 7.0 0.[address] [facility] ([facility]), [address], [address] [place] [address] 06/21 CBC w/ auto diff BA % % 0.2 1.2 0.1 Low FINAL Marcelo [facility] ([facility]), [address], [address] [place] [address] 06/21 CBC w/ auto diff RBC 10*6/u L 4.63 [address] [facility] ([facility]), [address], [address] [place] [address] 06/21 CBC w/ auto diff HGB g/dL 13.7 17.5 16.0 FINAL Marcelo [facility] ([facility]), [address], [address] [place] [address] 06/21 CBC w/ auto diff HCT % 40.1 51.0 47.5 FINAL Marcelo [facility] ([facility]), [address], [address] [place] [address] 06/21 CBC w/ auto diff MCV fL 79.0 92.2 96[address] [facility] ([facility]), [address], [address] [place] [address] 06/21 CBC w/ auto diff MCH pg 25.7 32.2 32.7 High FINAL [facility] ([facility]), [address], [address] [facility] [address] 06/21 CBC w/ auto diff MCHC g/dL 32.3 36.5 33.7 FINAL [facility] (T), [address], [address] [facility] [address] 06/21 CBC w/ auto diff RDW-C V, % % 11.6 14.4 14.0 FINAL [facility] (T), [address], [address] [facility] [address] 06/21 CBC w/ auto diff PLT 10*3/u L 163.0 337.0 185.0 FINAL [facility] ([facility]), [address], [address] [facility] [address] 07/23 Lab Repor t See psychology technician d Medications Date Name Route Dose [...] Oral orally 5000.0 mcg daily active 12/22 [place] 3-DHA-E PA-Fish Oil Oral Liquid 1,600 mg-500 [...] Print Location: Unknown Date/Time Printed: 10/19/2025 17:07 ([facility]) Patient: VALERIE PUENTES Sex: Male [...] Selected Billing Code(s): PHLEBOTOMY THERAPEUTIC SEPARATE PROCEDURE (54720) Entered By Barbara Casas RN; Incident to Marcelo Olson MD
--- OUTSIDE RECORDS SUMMARY | 2025-10-19 17:08 | XMS_ITS | Clinical Summary ---
Author Organization [facility] Facility Address [address] [place] [address] Care Team Providers Care Ballpoint Pen Cartridge Tester Name Role Phone Unavailable Primary Care Provider Unavailabl e Social History Tobacco Use Types Packs/Day Years Used Date Smoking Tobacco: Never Assessed Sex and Gender Information Value Date Recorded Sex Assigned at Not on file Legal Sex Male 8:03 AM EDT Gender Identity Not on file Sexual Orientation Not on file Plan of Treatment Health Maintenance Due Date Last Done Comments Colorectal Cancer Screening: Annual FOBT 2007 Colorectal Cancer Screening: Colonoscopy 2007 Colorectal Cancer Screening: Sigmoidoscopy 2007 Pneumococcal Vaccine: 50+ Ye ars (1 of 1 - PCV) 2008 Diabetes: Hemoglobin A1C 05/16/2022 Diabetes: Ophthalmology Exam 05/16/2022 Diabetes: Pedal Pulse Checked 05/16/2022 Diabetes: Sensory Foot Exam 05/16/2022 Diabetes: Visual Foot Exam 05/16/2022 Influenza Vaccine (#1) 2025 Hepatitis B Vaccine Aged Out No longe r eligible based on patient's age to complete this topic Insurance [facility]
--- OUTSIDE RECORDS SUMMARY | 2025-10-19 17:08 | XMS_ITS ---
Author Name Interface, [id number] lity Address [address] [place] [address] Organization [facility] Address [address] [place] [address] Allergies and Adverse Reactions Medication/Group Name Reaction [...] 9.1 High FINAL Marcelo Olson B&Whole Blood [facility] ([facility]), [address], [address] [place] [address] 07/20 CBC w/ auto diff Cristobal # (ANC) 10*3/u L 1.78 5.38 4.47 FINAL Marcelo Olson B&Whole Blood [facility] ([facility]), [address], Suite [facility] [place] [facility] 07/20 CBC w/ auto diff LY # 10*3/u L 1.32 3.57 3.40 FINAL Marcelo Olson B&Whole Blood [facility] ([facility]), [address], [address] [place], [place] [id number] 07/20 CBC w/ auto diff MO # 10*3/u L 0.3 0.82 0.80 FINAL Marcelo Olson B&Whole Blood [facility] ([facility]), [address], [place] [facility] [address] 07/20 CBC w/ auto diff EO # 10*3/u lL 0.04 0.54 0.38 FINAL Marcelo Olson B&Whole Blood [facility] ([facility]), [address], [place] [facility] [address] 07/20 CBC w/ auto diff BA # 10*3/u L 0.01 0.08 0.03 FINAL Mareclo Funez&Whole Blood [facility] ([facility]), [address], [address] [place] [address] 07/20 CBC w/ auto diff Cristobal % % 34.0 67.9 49.3 FINAL Marcelo Herms B&Whole Blood [facility] ([facility]), [address], [address] [place] [address] 07/20 CBC w/ auto diff LY % % 21.8 53.1 37.4 FINAL Marcelo Herms B&Whole Blood [facility] ([facility]), [address], [address] [place] [address] 07/20 CBC w/ auto diff MO % % 5.3 12.2 8.8 FINAL Marcelo Herms B&Whole Blood [facility] ([facility]), [address], [address] [place] [address] 07/20 CBC w/ auto diff EO % % 0.8 7.0 4.2 FINAL Marcelo Herms B&Whole Blood [facility] ([facility]), [address], [address] [place] [address] 07/20 CBC w/ auto diff BA % % 0.2 1.2 0.3 FINAL Marcelo Herms B&Whole Blood [facility] ([facility]), [address], [address] [place] [address] 07/20 CBC w/ auto diff RBC 10*6/u L 4.63 6.08 5.60 FINAL Marcelo Herms B&Whole Blood [facility] ([facility]), [address], [address] [place] [address] 07/20 CBC w/ auto diff HGB g/dL 13.7 17.5 18.2 High FINAL Marcelo Herms B&Whole Blood [facility] ([facility]), [address], [address] [place] [address] 07/20 CBC w/ auto diff HCT % 40.1 51.0 52.8 High FINAL Marcelo Herms B&Whole Blood [facility] ([facility]), [address], [address] [place] [address] 07/20 CBC w/ auto diff MCV fL 79.0 92.2 94.3 High FINAL Marcelo Herms B&Whole Blood [facility] ([facility]), [address], [address] [place] [address] 07/20 CBC w/ auto diff MCH pg 25.7 32.2 32.5 High FINAL Marcelo Herms B&Whole Blood [facility] ([facility]), [address], [address] [place] [address] 07/20 CBC w/ auto diff MCHC g/dL 32.3 36.5 34.5 FINAL Marcelo Herms B&Whole Blood [facility] ([facility]), [address], [address] [place] [address] 07/20 CBC w/ auto diff RDW-C V, % % 11.6 14.4 12.5 FINAL Marcelo Herms B&Whole Blood [facility] ([facility]), [address], [address] [place] [address] 07/20 CBC w/ auto diff PLT 10*3/u L 163.0 337.0 160.0 Low FINAL Marcelo Herms B&Whole Blood [facility] ([facility]), [address], [address] [place] [address] 11/09 CBC w/ auto diff WBC 10*3/u [...] Blood 5 02/12 Lab Repor t See it communications specialist d 02/15 CBC w/ auto diff WBC 10*3/u L 4.2 9.1 8.8 FINAL Marcelo Olson B&Whole Blood [facility] ([facility]), [address], [address] [place] [address] 02/15 CBC w/ auto diff Cristobal # (ANC) 10*3/u L 1.78 5.38 4.12 FINAL Marcelo Mahmoods B&Whole Blood [facility] ([facility]), [address], [place] [facility] [place] [address] 02/15 CBC w/ auto diff LY # 10*3/u L 1.32 3.57 3.32 FINAL Marcelo Mahmoods B&Whole Blood [facility] ([facility]), [address], [place] [facility] [address] 02/15 CBC w/ auto diff MO # 10*3/u L 0.3 0.82 0.96 High FINAL Marcelo Mahmoods B&Whole Blood [facility] ([facility]), [address], [place] [address] 02/15 CBC w/ auto diff EO # 10*3/u lL 0.04 0.54 0.36 FINAL Marcelo aMhmoods B&Whole Blood [facility] ([facility]), [address], [place] [facility] [facility] [address] 02/15 CBC w/ auto diff BA # 10*3/u L 0.01 0.08 0.04 FINAL Marcelo Mahmoods B&Whole Blood [facility] ([facility]), [address], [place] [facility] [address] 02/15 CBC w/ auto diff Cristobal % % 34.0 67.9 46.8 FINAL Marcelo Mahmoods B&Whole Blood [facility] ([facility]), [address], [address] [facility] [place] [facility] 02/15 CBC w/ auto diff LY % % 21.8 53.1 37.7 FINAL Marcelo Mahmoods B&Whole Blood [facility] ([facility]), [address], [place] [address] 02/15 CBC w/ auto diff MO % % 5.3 12.2 10.9 FINAL Marcelo Mahmoods B&Whole Blood [facility] ([facility]), [address], [place] [facility] [address] 02/15 CBC w/ auto diff EO % % 0.8 7.0 4.1 FINAL Marcelo Mahmoods B&Whole Blood [facility] ([facility]), [address], [place] [address] 02/15 CBC w/ auto diff BA % % 0.2 1.2 0.5 FINAL Marcelo Mahmoods B&Whole Blood [facility] ([facility]), [address], [place] [facility] [address] 02/15 CBC w/ auto diff RBC 10*6/u L 4.63 6.08 5.33 FINAL Marcelo Olson B&Whole Blood [facility] ([facility]), [address], [address] [facility] [place] [facility] 02/15 CBC w/ auto diff HGB g/dL 13.7 17.5 17.4 FINAL Marcelo Olson B&Whole Blood [facility] ([facility]), [address], [address] [facility] [place] [facility] 02/15 CBC w/ auto diff HCT % 40.1 51.0 50.4 FINAL Marcelo Olson B&Whole Blood [facility] ([facility]), [address], [address] [place] [address] 02/15 CBC w/ auto diff MCV fL 79.0 92.2 94.6 High FINAL Marcelo Mahmoods B&Whole Blood [facility] ([facility]), [address], [address] [place] [address] 02/15 CBC w/ auto diff MCH pg 25.7 32.2 32.6 High FINAL Marcelo Olson B&Whole Blood [facility] ([facility]), [address], [address] [place] [address] 02/15 CBC w/ auto diff MCHC g/dL 32.3 36.5 34.5 FINAL Marcelo Olson B&Whole Blood [facility] ([facility]), [address], [address] [place] [address] 02/15 CBC w/ auto diff RDW-C V, % % 11.6 14.4 14.0 FINAL Marcelo Olson B&Whole Blood [facility] ([facility]), [address], [address] [facility] [place] [facility] 02/15 CBC w/ auto diff PLT 10*3/u L 163.0 337.0 172.0 FINAL Marcelo Mahmoods B&Whole Blood [facility] ([facility]), [address], [place] [facility] [address] 05/31 CBC w/ auto diff WBC 10*3/u L 4.2 9.1 10.4 High FINAL Marcelo Mahmoods B&Whole Blood [facility] ([facility]), [address], [address] [facility] [place] [facility] 05/31 CBC w/ auto diff Cristobal # (ANC) 10*3/u L 1.78 5.38 5.26 FINAL Marcelo Olson B&Whole Blood [facility] ([facility]), [address], [address] [place] [address] 05/31 CBC w/ auto diff LY # 10*3/u L 1.32 3.57 3.84 High FINAL Marcelo Olson B&Whole Blood [facility] ([facility]), [address], [address] [place] [address] 05/31 CBC w/ auto diff MO # 10*3/u L 0.3 0.82 0.94 High FINAL Marcelo Olson B&Whole Blood [facility] ([facility]), [address], [address] [place] [address] 05/31 CBC w/ auto diff EO # 10*3/u lL 0.04 0.54 0.30 FINAL Marcelo Olson B&Whole Blood [facility] ([facility]), [address], [address] [place] [address] 05/31 CBC w/ auto diff BA # 10*3/u L 0.01 0.08 0.03 FINAL Marcelo Olson B&Whole Blood [facility] ([facility]), [address], [address] [place] [address] 05/31 CBC w/ auto diff Cristobal % % 34.0 67.9 50.7 FINAL Marcelo Olson B&Whole Blood [facility] ([facility]), [address], [address] [place] [address] 05/31 CBC w/ auto diff LY % % 21.8 53.1 37.0 FINAL Marcelo Olson B&Whole Blood [facility] ([facility]), [address], [address] [place] [address] 05/31 CBC w/ auto diff MO % % 5.3 12.2 9.1 FINAL Marcelo Mahmoods B&Whole Blood [facility] ([facility]), [address], [address] [place] [address] 05/31 CBC w/ auto diff EO % % 0.8 7.0 2.9 FINAL Marcelo Mahmoods B&Whole Blood [facility] ([facility]), [address], [address] [place] [address] 05/31 CBC w/ auto diff BA % % 0.2 1.2 0.3 FINAL Marcelo Mahmoods B&Whole Blood [facility] ([facility]), [address], [address] [place] [address] 05/31 CBC w/ auto diff RBC 10*6/u L 4.63 6.08 5.01 FINAL Marcelo Mahmoods B&Whole Blood [facility] ([facility]), [address], [address] [place] [address] 05/31 CBC w/ auto diff HGB g/dL 13.7 17.5 16.4 FINAL Marcelo Mahmoods B&Whole Blood [facility] ([facility]), [address], [address] [place] [address] 05/31 CBC w/ auto diff HCT % 40.1 51.0 47.5 FINAL Marcelo Mahmoods B&Whole Blood [facility] ([facility]), [address], [address] [place] [address] 05/31 CBC w/ auto diff MCV fL 79.0 92.2 94.8 High FINAL Marcelo Mahmoods B&Whole Blood [facility] ([facility]), [address], [address] [place] [address] 05/31 CBC w/ auto diff MCH pg 25.7 32.2 32.7 High FINAL [facility] B&Whole Blood [facility] ([facility]), [address], [address] [place] [address] 05/31 CBC w/ auto diff MCHC g/dL 32.3 36.5 34.5 FINAL Marcelo Mahmoods B&Whole Blood [facility] ([facility]), [address], [address] [place] [address] 05/31 CBC w/ auto diff RDW-C V, % % 11.6 14.4 13.8 FINAL Marcelo Mahmoods B&Whole Blood [facility] ([facility]), [address], [address] [place] [address] 05/31 CBC w/ auto diff PLT 10*3/u L 163.0 337.0 161.0 Low FINAL Marcelo Mahmoods B&Whole Blood [facility] ([facility]), [address], [address] [place] [address] 06/21 CBC w/ auto diff WBC 10*3/u L 4.2 9.1 14.1 High FINAL Marcelo [facility] ([facility]), [address], [address] [place] [address] 06/21 CBC w/ auto diff Cristobal # (ANC) 10*3/u L 1.78 5.38 10.63 High FINAL Marcelo [facility] ([facility]), [address], [address] [place] [address] 06/21 CBC w/ auto diff LY # 10*3/u L 1.32 3.57 2.09 FINAL Marcelo [facility] ([facility]), [address], [address] [place] [address] 06/21 CBC w/ auto diff MO # 10*3/u L 0.3 0.82 1.34 High FINAL Marcelo [facility] ([facility]), [address], [address] [place] [address] 06/21 CBC w/ auto diff EO # 10*3/u lL 0.04 0.54 0.03 Low FINAL Marcelo [facility] ([facility]), [address], [address] [place] [address] 06/21 CBC w/ auto diff BA # 10*3/u L 0.01 0.08 0.02 FINAL Marcelo [facility] ([facility]), [address], [address] [place] [address] 06/21 CBC w/ auto diff Cristobal % % 34.0 67.9 75.4 High FINAL Marcelo [facility] ([facility]), [address], [address] [place] [address] 06/21 CBC w/ auto diff LY % % 21.8 53.1 14.8 Low FINAL Marcelo [facility] ([facility]), [address], [address] [place] [address] 06/21 CBC w/ auto diff MO % % 5.3 12.2 9.5 FINAL Marcelo [facility] ([facility]), [address], [address] [place] [address] 06/21 CBC w/ auto diff EO % % 0.8 7.0 0.2 Low FINAL [facility] ([facility]), [address], [address] [place] [address] 06/21 CBC w/ auto diff BA % % 0.2 1.2 0.1 Low FINAL [facility] ([facility]), [address], [address] [place] [address] 06/21 CBC w/ auto diff RBC 10*6/u L 4.63 6.08 4.90 FINAL [facility] ([facility]), [address], [address] [place] [address] 06/21 CBC w/ auto diff HGB g/dL 13.7 17.5 16.0 FINAL [facility] ([facility]), [address], [address] [place] [address] 06/21 CBC w/ auto diff HCT % 40.1 51.0 47.5 FINAL [facility] ([facility]), [address], [address] [place] [address] 06/21 CBC w/ auto diff MCV fL 79.0 92.2 96.9 High FINAL [facility] ([facility]), [address], [address] [place] [address] 06/21 CBC w/ auto diff MCH pg 25.7 32.2 32.7 High FINAL [facility] ([facility]), [address], [address] [place] [address] 06/21 CBC w/ auto diff MCHC g/dL 32.3 36.5 33.7 FINAL [facility] ([facility]), [address], [address] [place] [address] 06/21 CBC w/ auto diff RDW-C V, % % 11.6 14.4 14.0 FINAL [facility] ([facility]), [address], [address] [place] [address] 06/21 CBC w/ auto diff PLT 10*3/u L 163.0 337.0 185.[address] [facility] ([facility]), [address], [address] [facility] [address] 07/23 Lab Repor t See it communications specialist d Medications Date Name Route Dose [...] Oral orally 5000.0 mcg daily active 12/22 [place] 3-DHA-E PA-Fish Oil Oral Liquid 1,600 mg-500 [...] Note Print Location: Unknown Date/Time Printed: 10/19/2025 17:08 ([facility]) Patient: VALERIE PUENTES Sex: Male : [...] Selected Billing Code(s): PHLEBOTOMY THERAPEUTIC SEPARATE PROCEDURE (71773) Entered By Barbara Casas RN; Incident to Marcelo Olson MD * Nurse Note for: 09-NOV-19 [facility] Nurse Note Print Location: Unknown Date/Time Printed: 10/19/2025 17:08 ([facility]) Patient: VALERIE PUENTES Sex: Male : [...] Selected Billing Code(s): PHLEBOTOMY THERAPEUTIC SEPARATE PROCEDURE (31634) Entered By Ju Gupta RN; Incident to Marcelo Olson MD * Nurse Note for: 20-JUL-19 [facility] Nurse Note Print Location: Unknown Date/Time Printed: 10/19/2025 17:08 ([facility]) Patient: VALERIE PUENTES Sex: Male : [...] Selected Billing Code(s): PHLEBOTOMY THERAPEUTIC SEPARATE PROCEDURE (45071) Entered By Barbara Garcia RN; Incident to Marcelo Olson MD
--- OUTSIDE RECORDS SUMMARY | 2025-10-19 17:08 | XMS_ITS ---
Author Name Interface, [id number] lity Address [address] [place] [address] Organization [facility] Address [address] [place] [address] Allergies and Adverse Reactions Medication/Group Name Reaction [...] L 4.2 9.1 14.1 High FINAL Marcelo [facility] ([facility]), [address], [address] [facility] [address] 06/21 CBC w/ auto diff Cristobal # (ANC) 10*3/u L 1.78 5.38 10.63 High FINAL Marcelo [facility] ([facility]), [address], [address] [facility] [address] 06/21 CBC w/ auto diff LY # 10*3/u L 1.32 3.57 2.09 FINAL [facility] ([facility]), [address], [address] [facility] [address] 06/21 CBC w/ auto diff MO # 10*3/u L 0.3 0.82 1.34 High FINAL Marcelo [facility] ([facility]), [address], [address] [place] [address] 06/21 CBC w/ auto diff EO # 10*3/u lL 0.04 0.54 0.03 Low FINAL Marcelo [facility] ([facility]), [address], [address] [place] [address] 06/21 CBC w/ auto diff BA # 10*3/u L 0.01 0.08 0.02 FINAL Marcelo [facility] ([facility]), [address], [address] [place] [address] 06/21 CBC w/ auto diff Cristobal % % 34.0 67.9 75.4 High FINAL Marcelo [facility] ([facility]), [address], [address] [place] [address] 06/21 CBC w/ auto diff LY % % 21.8 53.1 14.8 Low FINAL Marcelo [facility] ([facility]), [address], [address] [place] [address] 06/21 CBC w/ auto diff MO % % 5.3 12.2 9.5 FINAL Marcelo [facility] ([facility]), [address], [address] [place] [address] 06/21 CBC w/ auto diff EO % % 0.8 7.0 0.2 Low FINAL Marcelo [facility] ([facility]), [address], [address] [place] [address] 06/21 CBC w/ auto diff BA % % 0.2 1.2 0.1 Low FINAL Marcelo [facility] ([facility]), [address], [address] [place] [address] 06/21 CBC w/ auto diff RBC 10*6/u L 4.63 6.08 4.90 FINAL Marcelo [facility] ([facility]), [address], [address] [place] [address] 06/21 CBC w/ auto diff HGB g/dL 13.7 17.5 16.0 FINAL [facility] ([facility]), [address], [address] [place] [address] 06/21 CBC w/ auto diff HCT % 40.1 51.0 47.5 FINAL [facility] ([facility]), [address], [address] [place] [address] 06/21 CBC w/ auto diff MCV fL 79.0 92.2 96.9 High FINAL [facility] ([facility]), [address], [address] [place], [place] [address] 06/21 CBC w/ auto diff MCH pg 25.7 32.2 32.7 High FINAL [facility] ([facility]), [address], [address] [place] [address] 06/21 CBC w/ auto diff MCHC g/dL 32.3 36.5 33.7 FINAL [facility] ([facility]), [address], [address] [facility] [address] 06/21 CBC w/ auto diff RDW-C V, % % 11.6 14.4 14.0 FINAL [facility] ([facility]), [address], [address] [facility] [address] 06/21 CBC w/ auto diff PLT 10*3/u L 163.0 337.0 185.0 FINAL [facility] ([facility]), [address], [address] [place], [place] [address] 07/23 Lab Repor t See sales representative [employer] d Medications Date Name Route Dose Frequency Instructions Start Date End Date Status Fill Status Indication 12/22 Sitagli ptin-Me tformin Oral 50 mg-1,00 0 mg orally 1.0 2 times per day active 12/22 Aspirin Oral orally 81.0 mg daily active 12/22 Insulin Detemir Subcuta neous 100 unit/mL subcutan eously 36.0 every evening active 12/22 [place] balamin Oral orally 5000.0 mcg daily active 12/22 [place] 3-DHA-E PA-Fish Oil Oral Liquid 1,600 mg-500 [...]
--- OUTSIDE RECORDS SUMMARY | 2025-10-19 17:08 | XMS_ITS ---
Author Name Interface, [id number] lity Address [address] [place] [address] Organization [facility] Address [address] [place] [address] Allergies and Adverse Reactions Medication/Group Name Reaction [...] Blood Formerly [facility] ([facility]), [address], [address] [place] [address] 02/15 CBC w/ auto diff Cristobal # (ANC) 10*3/u L 1.78 5.38 4.12 FINAL Marcelo Olson B&Whole Blood Formerly [facility] ([facility]), [address] [facility] [address] [place] [address] 02/15 CBC w/ auto diff LY # 10*3/u L 1.32 3.57 3.32 FINAL Marcelo Olson B&Whole Blood Formerly [facility] ([facility]), [address], [address] [place] [address] 02/15 CBC w/ auto diff MO # 10*3/u L 0.3 0.82 0.96 High FINAL Marcelo Olson B&Whole Blood Formerly [facility] ([facility]), [address], [address] [place] [address] 02/15 CBC w/ auto diff EO # 10*3/u lL 0.04 0.54 0.36 FINAL Marcelo Olson B&Whole Blood Formerly [facility] ([facility]), [address], [address] [place] [address] 02/15 CBC w/ auto diff BA # 10*3/u L 0.01 0.08 0.04 FINAL Marcelo Olson B&Whole Blood Formerly [facility] ([facility]), [address] [facility] [address] [place] [address] 02/15 CBC w/ auto diff Cristobal % % 34.0 67.9 46.8 FINAL Marcelo Olson B&Whole Blood Formerly [facility] ([facility]), [address], [address] [place] [address] 02/15 CBC w/ auto diff LY % % 21.8 53.1 37.7 FINAL Marcelo Olson B&Whole Blood Formerly [facility] (T), [address], [place] [facility] [place] [address] 02/15 CBC w/ auto diff MO % % 5.3 12.2 10.9 FINAL Marcelo Olson B&Whole Blood Formerly [facility] (T), [address], Suite [facility] [place] [facility] 02/15 CBC w/ auto diff EO % % 0.8 7.0 4.1 FINAL Marcelo Olson B&Whole Blood Formerly [facility] (T), [address], Suite [facility] [place] [facility] 02/15 CBC w/ auto diff BA % % 0.2 1.2 0.5 FINAL Marcelo Olson B&Whole Blood Formerly [facility] ([facility]), [address], Suite [facility] [place] [facility] 02/15 CBC w/ auto diff RBC 10*6/u L 4.63 6.08 5.33 FINAL Marcelo Olson B&Whole Blood Formerly [facility] ([facility]), [address], Suite [facility] [place] [facility] 02/15 CBC w/ auto diff HGB g/dL 13.7 17.5 17.4 FINAL Marcelo Olson B&Whole Blood Formerly [facility] (T), [address], [address] [place] [address] 02/15 CBC w/ auto diff HCT % 40.1 51.0 50.4 FINAL Marcelo Olson B&Whole Blood Formerly [facility] (T), [address], [address] [facility] [place] [facility] 02/15 CBC w/ auto diff MCV fL 79.0 92.2 94.6 High FINAL Marcelo Olson B&Whole Blood Formerly [facility] ([facility]), [address], Suite [facility] [place] [facility] 02/15 CBC w/ auto diff MCH pg 25.7 32.2 32.6 High FINAL Marcelo Olson B&Whole Blood Formerly [facility] (T), [address], Suite [facility] [place] [facility] 02/15 CBC w/ auto diff MCHC g/dL 32.3 36.5 34.5 FINAL Marcelo Mahmoods B&Whole Blood Formerly [facility] (T), [address], Suite [facility] [place] [address] 02/15 CBC w/ auto diff RDW-C V, % % 11.6 14.4 14.0 FINAL Marcelo Mahmoods B&Whole Blood [facility] (T), [address], [address] [place] [address] 02/15 CBC w/ auto diff PLT 10*3/u L 163.0 337.0 172.0 FINAL Marcelo Mahmoods B&Whole Blood Formerly [facility] (T), [address], [address] [place] [address] 05/31 CBC w/ auto diff WBC 10*3/u L 4.2 9.1 10.4 High FINAL Marcelo Herms B&Whole Blood [facility] (T), [address], [address] [place] [address] 05/31 CBC w/ auto diff Cristobal # (ANC) 10*3/u L 1.78 5.38 5.26 FINAL Marcelo Mahmoods B&Whole Blood Formerly [facility] (T), [address], [address] [place] [address] 05/31 CBC w/ auto diff LY # 10*3/u L 1.32 3.57 3.84 High FINAL Marcelo Mahmoods B&Whole Blood [facility] (T), [address], [address] [place] [address] 05/31 CBC w/ auto diff MO # 10*3/u L 0.3 0.82 0.94 High FINAL Marcelo Herms B&Whole Blood [facility] (T), [address], [address] [place] [address] 05/31 CBC w/ auto diff EO # 10*3/u lL 0.04 0.54 0.30 FINAL Marcelo Herms B&Whole Blood [facility] (T), [address], [address] [place] [address] 05/31 CBC w/ auto diff BA # 10*3/u L 0.01 0.08 0.03 FINAL Marcelo Herms B&Whole Blood [facility] (T), [address], [address] [place] [address] 05/31 CBC w/ auto diff Cristobal % % 34.0 67.9 50.7 FINAL Marcelo Herms B&Whole Blood [facility] ([facility]), [address], [place] [facility] [place] [address] 05/31 CBC w/ auto diff LY % % 21.8 53.1 37.0 FINAL Marcelo Olson B&Whole Blood Formerly [facility] ([facility]), [address], [address] [facility] [place] [facility] 05/31 CBC w/ auto diff MO % % 5.3 12.2 9.1 FINAL Marcelo Olson B&Whole Blood Formerly [facility] ([facility]), [address], [address] [facility] [place] [facility] 05/31 CBC w/ auto diff EO % % 0.8 7.0 2.9 FINAL Marcelo Olson B&Whole Blood Formerly [facility] ([facility]), [address], [address] [place] [address] 05/31 CBC w/ auto diff BA % % 0.2 1.2 0.3 FINAL Marcelo Olson B&Whole Blood Formerly [facility] (T), [address], [address] [place] [address] 05/31 CBC w/ auto diff RBC 10*6/u L 4.63 6.08 5.01 FINAL Marcelo Olson B&Whole Blood Formerly [facility] (T), [address], [address] [place] [address] 05/31 CBC w/ auto diff HGB g/dL 13.7 17.5 16.4 FINAL Marcelo Olson B&Whole Blood Formerly [facility] ([facility]), [address], [address] [place] [address] 05/31 CBC w/ auto diff HCT % 40.1 51.0 47.5 FINAL Marcelo Olson B&Whole Blood Formerly [facility] ([facility]), [address], [address] [place] [address] 05/31 CBC w/ auto diff MCV fL 79.0 92.2 94.8 High FINAL Marcelo Mahmoods B&Whole Blood [facility] ([facility]), [address], [address] [place] [address] 05/31 CBC w/ auto diff MCH pg 25.7 32.2 32.7 High FINAL Marcelo Mahmoods B&Whole Blood [facility] ([facility]), [address], [address] [place] [address] 05/31 CBC w/ auto diff MCHC g/dL 32.3 36.5 34.5 FINAL [facility] B&Whole Blood Formerly [facility] (T), [address], [address] [place] [address] 05/31 CBC w/ auto diff RDW-C V, % % 11.6 14.4 13.8 FINAL [facility] B&Whole Blood Formerly [facility] (T), [address], [address] [place] [address] 05/31 CBC w/ auto diff PLT 10*3/u L 163.0 337.0 161.0 Low FINAL [facility] B&Whole Blood Formerly [facility] ([facility]), [address], [address] [place] [address] 06/21 CBC w/ auto diff WBC 10*3/u L 4.2 9.1 14.1 High FINAL [facility] ([facility]), [address], [address] [place] [address] 06/21 CBC w/ auto diff Cristobal # (ANC) 10*3/u L 1.78 5.38 10.63 High FINAL [facility] ([facility]), [address], [address] [place] [address] 06/21 CBC w/ auto diff LY # 10*3/u L 1.32 3.57 2.09 FINAL [facility] ([facility]), [address], [address] [place] [address] 06/21 CBC w/ auto diff MO # 10*3/u L 0.3 0.82 1.34 High FINAL [facility] ([facility]), [address], [address] [place] [address] 06/21 CBC w/ auto diff EO # 10*3/u lL 0.04 0.54 0.03 Low FINAL [facility] ([facility]), [address], [address] [place] [address] 06/21 CBC w/ auto diff BA # 10*3/u L 0.01 0.08 0.02 FINAL [facility] ([facility]), [address], [address] [place] [address] 06/21 CBC w/ auto diff Cristobal % % 34.0 67.9 75.4 High FINAL [facility] ([facility]), [address], [address] [place] [address] 06/21 CBC w/ auto diff LY % % 21.8 53.1 14.8 Low FINAL [facility] ([facility]), [address], [address] [place] [address] 06/21 CBC w/ auto diff MO % % 5.3 12.2 9.5 FINAL [facility] ([facility]), [address], [address] [place] [address] 06/21 CBC w/ auto diff EO % % 0.8 7.0 0.2 Low FINAL [facility] ([facility]), [address], [address] [place] [address] 06/21 CBC w/ auto diff BA % % 0.2 1.2 0.1 Low FINAL [facility] ([facility]), [address], [address] [place] [address] 06/21 CBC w/ auto diff RBC 10*6/u L 4.63 6.08 4.90 FINAL [facility] ([facility]), [address], [address] [place] [address] 06/21 CBC w/ auto diff HGB g/dL 13.7 17.5 16.0 FINAL [facility] ([facility]), [address], [address] [place] [address] 06/21 CBC w/ auto diff HCT % 40.1 51.0 47.5 FINAL [facility] ([facility]), [address], [address] [place] [address] 06/21 CBC w/ auto diff MCV fL 79.0 92.2 96.9 High FINAL [facility] ([facility]), [address], [address] [place] [address] 06/21 CBC w/ auto diff MCH pg 25.7 32.2 32.7 High FINAL [facility] ([facility]), [address], [address] [facility] [address] 06/21 CBC w/ auto diff MCHC g/dL 32.3 36.5 33.7 FINAL [facility] ([facility]), [address], [address] [facility] [address] 06/21 CBC w/ auto diff RDW-C V, % % 11.6 14.4 14.0 FINAL [facility] ([facility]), [address], [address] [facility] [address] 06/21 CBC w/ auto diff PLT 10*3/u L 163.0 337.0 185.0 FINAL [facility] ([facility]), [address], [address] [facility] [address] 07/23 Lab Repor t See electronics tester d Medications Date Name Route Dose [...] Oral orally 5000.0 mcg daily active 12/22 [place] 3-DHA-E PA-Fish Oil Oral Liquid 1,600 mg-500 [...] Print Location: Unknown Date/Time Printed: 10/19/2025 17:07 ([facility]) Patient: VALERIE PUENTES [...] THERAPEUTIC SEPARATE PROCEDURE (47793) Entered By Barbara Casas RN; Incident to Marcelo Olson MD
--- OUTSIDE RECORDS SUMMARY | 2025-10-19 17:08 | XMS_ITS ---
Author Name Interface, [id number] lity Address [address] [place] [address] Organization [facility] Address [address] [place] [address] Allergies and Adverse Reactions Medication/Group Name Reaction [...] Olson B&Whole Blood [facility] ([facility]), [address], [address] [place] [address] 02/15 CBC w/ auto diff Cristobal # (ANC) 10*3/u L 1.78 5.38 4.12 FINAL Marcelo Olson B&Whole Blood [facility] ([facility]), [address], [address] [place] [address] 02/15 CBC w/ auto diff LY # 10*3/u L 1.32 3.57 3.32 FINAL Marcelo Olson B&Whole Blood [facility] ([facility]), [address], [address] [place] [address] 02/15 CBC w/ auto diff MO # 10*3/u L 0.3 0.82 0.96 High FINAL Marcelo Olson B&Whole Blood [facility] ([facility]), [address], [address] [place] [address] 02/15 CBC w/ auto diff EO # 10*3/u lL 0.04 0.54 0.36 FINAL Marcelo Olson B&Whole Blood [facility] ([facility]), [address], [address] [place] [address] 02/15 CBC w/ auto diff BA # 10*3/u L 0.01 0.08 0.04 FINAL Marcelo Olson B&Whole Blood [facility] ([facility]), [address], [address] [place] [address] 02/15 CBC w/ auto diff Cristobal % % 34.0 67.9 46.8 FINAL Marcelo Olson B&Whole Blood [facility] ([facility]), [address], [address] [place] [address] 02/15 CBC w/ auto diff LY % % 21.8 53.1 37.7 FINAL Marcelo Mahmoods B&Whole Blood [facility] ([facility]), [address], [place] [facility] [address] 02/15 CBC w/ auto diff MO % % 5.3 12.2 10.9 FINAL Marcelo Mahmoods B&Whole Blood [facility] ([facility]), [address], [place] [facility] [address] 02/15 CBC w/ auto diff EO % % 0.8 7.0 4.1 FINAL Marcelo Olson B&Whole Blood [facility] ([facility]), [address], [address] [facility] [place] Counts include 234 beds at the [facility] 02/15 CBC w/ auto diff BA % % 0.2 1.2 0.5 FINAL Marcelo Mahmoods B&Whole Blood [facility] (T), [address], [address] [facility] [place] Counts include 234 beds at the [facility] 02/15 CBC w/ auto diff RBC 10*6/u L 4.63 6.08 5.33 FINAL Marcelo Mahmoods B&Whole Blood [facility] (T), [address], [address] [facility] [place] Counts include 234 beds at the [facility] 02/15 CBC w/ auto diff HGB g/dL 13.7 17.5 17.4 FINAL Marcelo Olson B&Whole Blood [facility] (T), [address], [address] [facility] [place] Counts include 234 beds at the [facility] 02/15 CBC w/ auto diff HCT % 40.1 51.0 50.4 FINAL Marcelo Mahmoods B&Whole Blood [facility] (T), [address], [address] [facility] [place] Counts include 234 beds at the [facility] 02/15 CBC w/ auto diff MCV fL 79.0 92.2 94.6 High FINAL Marcelo Mahmoods B&Whole Blood [facility] ([facility]), [address], [place] [facility] [address] 02/15 CBC w/ auto diff MCH pg 25.7 32.2 32.6 High FINAL Marcelo Mahmoods B&Whole Blood [facility] ([facility]), [address], [place] [facility] [address] 02/15 CBC w/ auto diff MCHC g/dL 32.3 36.5 34.5 FINAL Marcelo Mahmoods B&Whole Blood [facility] ([facility]), [address], [address] [place] [address] 02/15 CBC w/ auto diff RDW-C V, % % 11.6 14.4 14.0 FINAL Marcelo Mahmoods B&Whole Blood [facility] (T), [address], [address] [place] [address] 02/15 CBC w/ auto diff PLT 10*3/u L 163.0 337.0 172.0 FINAL Marcelo Mahmoods B&Whole Blood [facility] ([facility]), [address], [address] [place] [address] 05/31 CBC w/ auto diff WBC 10*3/u L 4.2 9.1 10.4 High FINAL Marcelo Mahmoods B&Whole Blood [facility] ([facility]), [address], [address] [place] [address] 05/31 CBC w/ auto diff Cristobal # (ANC) 10*3/u L 1.78 5.38 5.26 FINAL Marcelo Mahmoods B&Whole Blood [facility] ([facility]), [address], [address] [place] [address] 05/31 CBC w/ auto diff LY # 10*3/u L 1.32 3.57 3.84 High FINAL Marcelo Mahmoods B&Whole Blood [facility] ([facility]), [address], [address] [place] [address] 05/31 CBC w/ auto diff MO # 10*3/u L 0.3 0.82 0.94 High FINAL Marcelo Mahmoods B&Whole Blood [facility] ([facility]), [address], [address] [place] [address] 05/31 CBC w/ auto diff EO # 10*3/u lL 0.04 0.54 0.30 FINAL Marcelo Mahmoods B&Whole Blood [facility] ([facility]), [address], [address] [place] [address] 05/31 CBC w/ auto diff BA # 10*3/u L 0.01 0.08 0.03 FINAL Marcelo Herms B&Whole Blood [facility] ([facility]), [address], [address] [place] [address] 05/31 CBC w/ auto diff Cristobal % % 34.0 67.9 50.7 FINAL Marcelo Herms B&Whole Blood [facility] (T), [address], [address] [facility] [place] Counts include 234 beds at the [facility] 05/31 CBC w/ auto diff LY % % 21.8 53.1 37.0 FINAL Marcelo Olson B&Whole Blood [facility] (T), [address], [address] [place] [address] 05/31 CBC w/ auto diff MO % % 5.3 12.2 9.1 FINAL Marcelo Olson B&Whole Blood [facility] (T), [address], [address] [place] [address] 05/31 CBC w/ auto diff EO % % 0.8 7.0 2.9 FINAL Marcelo Olson B&Whole Blood [facility] (T), [address], [address] [place] [address] 05/31 CBC w/ auto diff BA % % 0.2 1.2 0.3 FINAL Marcelo Olson B&Whole Blood [facility] (T), [address], [address] [place] [address] 05/31 CBC w/ auto diff RBC 10*6/u L 4.63 6.08 5.01 FINAL Marcelo Olson B&Whole Blood [facility] (T), [address], [address] [place] [address] 05/31 CBC w/ auto diff HGB g/dL 13.7 17.5 16.4 FINAL Marcelo Olson B&Whole Blood [facility] (T), [address], [address] [place] [address] 05/31 CBC w/ auto diff HCT % 40.1 51.0 47.5 FINAL Marcelo Olson B&Whole Blood [facility] (T), [address], [address] [place] [address] 05/31 CBC w/ auto diff MCV fL 79.0 92.2 94.8 High FINAL Marcelo Olson B&Whole Blood [facility] (T), [address], [address] [place] [address] 05/31 CBC w/ auto diff MCH pg 25.7 32.2 32.7 High FINAL Marcelo Olson B&Whole Blood [facility] (T), [address], [address] [place] [address] 05/31 CBC w/ auto diff MCHC g/dL 32.3 36.5 34.5 FINAL Marcelo [facility] B&Whole Blood [facility] ([facility]), [address], [address] [place] [address] 05/31 CBC w/ auto diff RDW-C V, % % 11.6 14.4 13.8 FINAL Marcelo [facility] B&Whole Blood [facility] ([facility]), [address], [address] [place] [address] 05/31 CBC w/ auto diff PLT 10*3/u L 163.0 337.0 161.0 Low FINAL [facility] B&Whole Blood [facility] ([facility]), [address], [address] [place] [address] 06/21 CBC w/ auto diff WBC 10*3/u L 4.2 9.1 14.1 High FINAL [facility] (T), [address], [address] [place] [address] 06/21 CBC w/ auto diff Cristobal # (ANC) 10*3/u L 1.78 5.38 10.63 High FINAL [facility] (T), [address], [address] [place] [address] 06/21 CBC w/ auto diff LY # 10*3/u L 1.32 3.57 2.09 FINAL [facility] (T), [address], [address] [place], [place] [id number] 06/21 CBC w/ auto diff MO # 10*3/u L 0.3 0.82 1.34 High FINAL [facility] ([facility]), [address], [address] [place], [place] [id number] 06/21 CBC w/ auto diff EO # 10*3/u lL 0.04 0.54 0.03 Low FINAL [facility] ([facility]), [address], [address] [facility] [address] 06/21 CBC w/ auto diff BA # 10*3/u L 0.01 0.08 0.02 FINAL [facility] ([facility]), [address], [address] [place] [address] 06/21 CBC w/ auto diff Cristobal % % 34.0 67.9 75.4 High FINAL Marcelo [facility] ([facility]), [address], [address] [place] [address] 06/21 CBC w/ auto diff LY % % 21.8 53.1 14.8 Low FINAL Marcelo [facility] ([facility]), [address], [address] [place] [address] 06/21 CBC w/ auto diff MO % % 5.3 12.2 9.5 FINAL Marcelo [facility] ([facility]), [address], [address] [place] [address] 06/21 CBC w/ auto diff EO % % 0.8 7.0 0.2 Low FINAL Marcelo [facility] ([facility]), [address], [address] [place] [address] 06/21 CBC w/ auto diff BA % % 0.2 1.2 0.1 Low FINAL Marcelo [facility] ([facility]), [address], [address] [place] [address] 06/21 CBC w/ auto diff RBC 10*6/u L 4.63 6.08 4.90 FINAL Marcelo [facility] ([facility]), [address], [address] [place] [address] 06/21 CBC w/ auto diff HGB g/dL 13.7 17.5 16.0 FINAL Marcelo [facility] ([facility]), [address], [address] [place] [address] 06/21 CBC w/ auto diff HCT % 40.1 51.0 47.5 FINAL Marcelo [facility] ([facility]), [address], [address] [place] [address] 06/21 CBC w/ auto diff MCV fL 79.0 92.2 96.9 High FINAL Marcelo [facility] ([facility]), [address], [address] [place] [address] 06/21 CBC w/ auto diff MCH pg 25.7 32.2 32.7 High FINAL [facility] ([facility]), [address], [address] [facility] [address] 06/21 CBC w/ auto diff MCHC g/dL 32.3 36.5 33.7 FINAL [facility] (T), [address], [address] [facility] [address] 06/21 CBC w/ auto diff RDW-C V, % % 11.6 14.4 14.0 FINAL [facility] (T), [address], [address] [facility] [address] 06/21 CBC w/ auto diff PLT 10*3/u L 163.0 337.0 185.0 FINAL [facility] ([facility]), [address], [address] [facility] [address] 07/23 Lab Repor t See machine woodworking sander d Medications Date Name Route Dose Frequency Instructions Start Date End Date Status Fill Status Indication 12/22 Sitagli ptin-Me tformin Oral 50 mg-1,00 0 mg orally 1.0 2 times per day active 12/22 Aspirin Oral orally 81.0 mg daily active 12/22 Insulin Detemir Subcuta neous 100 unit/mL subcutan eously 36.0 every evening active 12/22 [place]yanoco balamin Oral orally 5000.0 mcg daily active 12/22 [place] 3-DHA-E PA-Fish Oil Oral Liquid 1,600 mg-500 [...] Print Location: Unknown Date/Time Printed: 10/19/2025 17:08 ([facility]) Patient: VALERIE PUENTES Sex: Male [...] Selected Billing Code(s): PHLEBOTOMY THERAPEUTIC SEPARATE PROCEDURE (08691) Entered By Barbara Casas RN; Incident to Marcelo Olson MD
--- OUTSIDE RECORDS SUMMARY | 2025-10-19 17:08 | XMS_ITS ---
Author Name Interface, [id number] lity Address [address] [place] [address] Organization [facility] Address [address] [place] [address] Allergies and Adverse Reactions Medication/Group Name Reaction [...] 8.8 FINAL Marcelo Olson B&Whole Blood [facility] ([facility]), [address], [address] [place] [address] 02/15 CBC w/ auto diff Cristobal # (ANC) 10*3/u L 1.78 5.38 4.12 FINAL Marcelo Olson B&Whole Blood [facility] ([facility]), [address], [address] [place] [address] 02/15 CBC w/ auto diff LY # 10*3/u L 1.32 3.57 3.32 FINAL Marcelo Olson B&Whole Blood [facility] ([facility]), [address], [address] [place] [address] 02/15 CBC w/ auto diff MO # 10*3/u L 0.3 0.82 0.96 High FINAL Marcelo Olson B&Whole Blood [facility] ([facility]), [address], [address] [place] [address] 02/15 CBC w/ auto diff EO # 10*3/u lL 0.04 0.54 0.36 FINAL Marcelo Olson B&Whole Blood [facility] ([facility]), [address], [address] [place] [address] 02/15 CBC w/ auto diff BA # 10*3/u L 0.01 0.08 0.04 FINAL Marcelo Olson B&Whole Blood [facility] ([facility]), [address], [address] [place] [address] 02/15 CBC w/ auto diff Cristobal % % 34.0 67.9 46.8 FINAL Marcelo Olson B&Whole Blood [facility] ([facility]), [address], [address] [place] [address] 02/15 CBC w/ auto diff LY % % 21.8 53.1 37.7 FINAL Marcelo Mahomods B&Whole Blood [facility] ([facility]), [address], [address] [facility] [place] [address] 02/15 CBC w/ auto diff MO % % 5.3 12.2 10.9 FINAL Marcelo Mahmoods B&Whole Blood [facility] ([facility]), [address], [place] [facility] [place] [address] 02/15 CBC w/ auto diff EO % % 0.8 7.0 4.1 FINAL Marcelo Olson B&Whole Blood [facility] ([facility]), [address], [address] [facility] [place] [facility] 02/15 CBC w/ auto diff BA % % 0.2 1.2 0.5 FINAL Marcelo Mahmoods B&Whole Blood [facility] (T), [address], [address] [facility] [place] [facility] 02/15 CBC w/ auto diff RBC 10*6/u L 4.63 6.08 5.33 FINAL Marcelo Mahmoods B&Whole Blood [facility] ([facility]), [address], [address] [facility] [place] [facility] 02/15 CBC w/ auto diff HGB g/dL 13.7 17.5 17.4 FINAL Marcelo Olson B&Whole Blood [facility] (T), [address], [address] [facility] [place] [facility] 02/15 CBC w/ auto diff HCT % 40.1 51.0 50.4 FINAL Marcelo Mahmoods B&Whole Blood [facility] ([facility]), [address], [address] [facility] [place] [facility] 02/15 CBC w/ auto diff MCV fL 79.0 92.2 94.6 High FINAL Marcelo Mahmoods B&Whole Blood [facility] ([facility]), [address], [place] [facility] [place] [address] 02/15 CBC w/ auto diff MCH pg 25.7 32.2 32.6 High FINAL Marcelo Mahmoods B&Whole Blood [facility] ([facility]), [address], [address] [facility] [place] [address] 02/15 CBC w/ auto diff MCHC g/dL 32.3 36.5 34.5 FINAL Marcelo Mahmoods B&Whole Blood [facility] ([facility]), [address], [address] [place] [address] 02/15 CBC w/ auto diff RDW-C V, % % 11.6 14.4 14.0 FINAL Marcelo Mahmoods B&Whole Blood [facility] (T), [address], [address] [place] [address] 02/15 CBC w/ auto diff PLT 10*3/u L 163.0 337.0 172.0 FINAL Marcelo Mahmoods B&Whole Blood [facility] ([facility]), [address], [address] [place] [address] 05/31 CBC w/ auto diff WBC 10*3/u L 4.2 9.1 10.4 High FINAL Marcelo Mahmoods B&Whole Blood [facility] ([facility]), [address], [address] [place] [address] 05/31 CBC w/ auto diff Cristobal # (ANC) 10*3/u L 1.78 5.38 5.26 FINAL Marcelo Mahmoods B&Whole Blood [facility] ([facility]), [address], [address] [place] [address] 05/31 CBC w/ auto diff LY # 10*3/u L 1.32 3.57 3.84 High FINAL Marcelo Mahmoods B&Whole Blood [facility] ([facility]), [address], [address] [place] [address] 05/31 CBC w/ auto diff MO # 10*3/u L 0.3 0.82 0.94 High FINAL Marcelo Mahmoods B&Whole Blood [facility] ([facility]), [address], [address] [place] [address] 05/31 CBC w/ auto diff EO # 10*3/u lL 0.04 0.54 0.30 FINAL Marcelo Mahmoods B&Whole Blood [facility] ([facility]), [address], [address] [place] [address] 05/31 CBC w/ auto diff BA # 10*3/u L 0.01 0.08 0.03 FINAL Marcelo Herms B&Whole Blood [facility] ([facility]), [address], [address] [place] [address] 05/31 CBC w/ auto diff Cristobal % % 34.0 67.9 50.7 FINAL Marcelo Herms B&Whole Blood [facility] (T), [address], [address] [facility] [place] [facility] 05/31 CBC w/ auto diff LY % % 21.8 53.1 37.0 FINAL Marcelo Olson B&Whole Blood [facility] (T), [address], [address] [place] [address] 05/31 CBC w/ auto diff MO % % 5.3 12.2 9.1 FINAL Marcelo Olson B&Whole Blood [facility] (T), [address], [address] [place] [address] 05/31 CBC w/ auto diff EO % % 0.8 7.0 2.9 FINAL Marcelo Olson B&Whole Blood [facility] (T), [address], [address] [place] [address] 05/31 CBC w/ auto diff BA % % 0.2 1.2 0.3 FINAL Marcelo Olson B&Whole Blood [facility] (T), [address], [address] [place] [address] 05/31 CBC w/ auto diff RBC 10*6/u L 4.63 6.08 5.01 FINAL Marcelo Olson B&Whole Blood [facility] (T), [address], [address] [place] [address] 05/31 CBC w/ auto diff HGB g/dL 13.7 17.5 16.4 FINAL Marcelo Olson B&Whole Blood [facility] (T), [address], [address] [place] [address] 05/31 CBC w/ auto diff HCT % 40.1 51.0 47.5 FINAL Marcelo Olson B&Whole Blood [facility] (T), [address], [address] [place] [address] 05/31 CBC w/ auto diff MCV fL 79.0 92.2 94.8 High FINAL Marcelo Olson B&Whole Blood [facility] (T), [address], [address] [place] [address] 05/31 CBC w/ auto diff MCH pg 25.7 32.2 32.7 High FINAL Marcelo Olson B&Whole Blood [facility] (T), [address], [address] [place] [address] 05/31 CBC w/ auto diff MCHC g/dL 32.3 36.5 34.5 FINAL Marcelo [facility] B&Whole Blood [facility] ([facility]), [address], [address] [place] [address] 05/31 CBC w/ auto diff RDW-C V, % % 11.6 14.4 13.8 FINAL Marcelo [facility] B&Whole Blood [facility] ([facility]), [address], [address] [place] [address] 05/31 CBC w/ auto diff PLT 10*3/u L 163.0 337.0 161.0 Low FINAL [facility] B&Whole Blood [facility] ([facility]), [address], [address] [place] [address] 06/21 CBC w/ auto diff WBC 10*3/u L 4.2 9.1 14.1 High FINAL [facility] (T), [address], [address] [place] [address] 06/21 CBC w/ auto diff Cristobal # (ANC) 10*3/u L 1.78 5.38 10.63 High FINAL [facility] (T), [address], [address] [place] [address] 06/21 CBC w/ auto diff LY # 10*3/u L 1.32 3.57 2.09 FINAL [facility] (T), [address], [address] [place], [place] [id number] 06/21 CBC w/ auto diff MO # 10*3/u L 0.3 0.82 1.34 High FINAL [facility] ([facility]), [address], [address] [place], [place] [id number] 06/21 CBC w/ auto diff EO # 10*3/u lL 0.04 0.54 0.03 Low FINAL [facility] ([facility]), [address], [address] [facility] [address] 06/21 CBC w/ auto diff BA # 10*3/u L 0.01 0.08 0.02 FINAL [facility] ([facility]), [address], [address] [place] [address] 06/21 CBC w/ auto diff Cristobal % % 34.0 67.9 75.4 High FINAL Marcelo [facility] ([facility]), [address], [address] [place] [address] 06/21 CBC w/ auto diff LY % % 21.8 53.1 14.8 Low FINAL Marcelo [facility] ([facility]), [address], [address] [place] [address] 06/21 CBC w/ auto diff MO % % 5.3 12.2 9.5 FINAL Marcelo [facility] ([facility]), [address], [address] [place] [address] 06/21 CBC w/ auto diff EO % % 0.8 7.0 0.2 Low FINAL Marcelo [facility] ([facility]), [address], [address] [place] [address] 06/21 CBC w/ auto diff BA % % 0.2 1.2 0.1 Low FINAL Marcelo [facility] ([facility]), [address], [address] [place] [address] 06/21 CBC w/ auto diff RBC 10*6/u L 4.63 6.08 4.90 FINAL Marcelo [facility] ([facility]), [address], [address] [place] [address] 06/21 CBC w/ auto diff HGB g/dL 13.7 17.5 16.0 FINAL Marcelo [facility] ([facility]), [address], [address] [place] [address] 06/21 CBC w/ auto diff HCT % 40.1 51.0 47.5 FINAL Marcelo [facility] ([facility]), [address], [address] [place] [address] 06/21 CBC w/ auto diff MCV fL 79.0 92.2 96.9 High FINAL Marcelo [facility] ([facility]), [address], [address] [place] [address] 06/21 CBC w/ auto diff MCH pg 25.7 32.2 32.7 High FINAL [facility] ([facility]), [address], [address] [facility] [address] 06/21 CBC w/ auto diff MCHC g/dL 32.3 36.5 33.7 FINAL [facility] (T), [address], [address] [facility] [address] 06/21 CBC w/ auto diff RDW-C V, % % 11.6 14.4 14.0 FINAL [facility] (T), [address], [address] [facility] [address] 06/21 CBC w/ auto diff PLT 10*3/u L 163.0 337.0 185.0 FINAL [facility] ([facility]), [address], [address] [facility] [address] 07/23 Lab Repor t See talent acquisition partner d Medications Date Name Route Dose Frequency Instructions Start Date End Date Status Fill Status Indication 12/22 Sitagli ptin-Me tformin Oral 50 mg-1,00 0 mg orally 1.0 2 times per day active 12/22 Aspirin Oral orally 81.0 mg daily active 12/22 Insulin Detemir Subcuta neous 100 unit/mL subcutan eously 36.0 every evening active 12/22 Cyanoco balamin Oral orally 5000.0 mcg daily active 12/22 [place] 3-DHA-E PA-Fish Oil Oral Liquid 1,600 mg-500 [...] Print Location: Unknown Date/Time Printed: 10/19/2025 17:07 (Lauren/[facility]) Patient: VALERIE PUENTES Sex: Male [...] Selected Billing Code(s): PHLEBOTOMY THERAPEUTIC SEPARATE PROCEDURE (92986) Entered By Barbara Casas RN; Incident to Marcelo Olson MD
--- OUTSIDE RECORDS SUMMARY | 2025-10-19 17:08 | XMS_ITS | CCD ---
Author Name Interface, [id number] lity Address [address] [id number] Organization [facility] Address [address] [place] [address] Care Team Providers Care Record Press Supervisor Name Role Phone Whitney HUGHES, Marcelo [...] Oral orally 25.0 mg daily active 12/22 [place] 3-DHA-E PA-Fish Oil Oral Liquid 1,600 mg-500 [...]
--- OUTSIDE RECORDS SUMMARY | 2025-10-19 17:08 | XMS_ITS ---
Author Name Interface, [id number] lity Address [address] [place] [address] Organization [facility] Address [address] [place] [address] Allergies and Adverse Reactions Medication/Group Name Reaction [...] 9.1 High FINAL Marcelo Olson B&Whole Blood [facility] ([facility]), [address], [address] [place] [address] 07/20 CBC w/ auto diff Cristobal # (ANC) 10*3/u L 1.78 5.38 4.47 FINAL Marcelo Olson B&Whole Blood [facility] ([facility]), [address], Suite [facility] [place] [facility] 07/20 CBC w/ auto diff LY # 10*3/u L 1.32 3.57 3.40 FINAL Marcelo Olson B&Whole Blood [facility] ([facility]), [address], [address] [place], [place] [id number] 07/20 CBC w/ auto diff MO # 10*3/u L 0.3 0.82 0.80 FINAL Marcelo Olson B&Whole Blood [facility] ([facility]), [address], Suite [facility] [place] [address] 07/20 CBC w/ auto diff EO # 10*3/u lL 0.04 0.54 0.38 FINAL Marcelo Olson B&Whole Blood [facility] ([facility]), [address], Suite [facility] [place] [address] 07/20 CBC w/ auto diff BA # 10*3/u L 0.01 0.08 0.03 FINAL Marcelo Funez&Whole Blood [facility] (T), [address], [address] [place] [address] 07/20 CBC w/ auto diff Cristobal % % 34.0 67.9 49.3 FINAL Marcelo Herms B&Whole Blood [facility] ([facility]), [address], [address] [place] [address] 07/20 CBC w/ auto diff LY % % 21.8 53.1 37.4 FINAL Marcelo Herms B&Whole Blood [facility] (T), [address], [address] [place] [address] 07/20 CBC w/ auto diff MO % % 5.3 12.2 8.8 FINAL Marcelo Herms B&Whole Blood [facility] (T), [address], [address] [place] [address] 07/20 CBC w/ auto diff EO % % 0.8 7.0 4.2 FINAL Marcelo Herms B&Whole Blood [facility] (T), [address], [address] [place] [address] 07/20 CBC w/ auto diff BA % % 0.2 1.2 0.3 FINAL Marcelo Herms B&Whole Blood [facility] (T), [address], [address] [place] [address] 07/20 CBC w/ auto diff RBC 10*6/u L 4.63 6.08 5.60 FINAL Marcelo Herms B&Whole Blood [facility] (T), [address], [address] [place] [address] 07/20 CBC w/ auto diff HGB g/dL 13.7 17.5 18.2 High FINAL Marcelo Herms B&Whole Blood [facility] (T), [address], [address] [place] [address] 07/20 CBC w/ auto diff HCT % 40.1 51.0 52.8 High FINAL Marcelo Herms B&Whole Blood [facility] ([facility]), [address], [address] [place] [address] 07/20 CBC w/ auto diff MCV fL 79.0 92.2 94.3 High FINAL Marcelo Herms B&Whole Blood [facility] ([facility]), [address], [address] [place] [address] 07/20 CBC w/ auto diff MCH pg 25.7 32.2 32.5 High FINAL Marcelo Herms B&Whole Blood [facility] ([facility]), [address], [address] [place] [address] 07/20 CBC w/ auto diff MCHC g/dL 32.3 36.5 34.5 FINAL Marcelo Herms B&Whole Blood [facility] ([facility]), [address], [address] [place] [address] 07/20 CBC w/ auto diff RDW-C V, % % 11.6 14.4 12.5 FINAL Marcelo Herms B&Whole Blood [facility] ([facility]), [address], [address] [place] [address] 07/20 CBC w/ auto diff PLT 10*3/u L 163.0 337.0 160.0 Low FINAL Marcelo Herms B&Whole Blood [facility] ([facility]), [address], [address] [place] [address] 11/09 CBC w/ auto diff WBC 10*3/u [...] Blood 5 02/12 Lab Repor t See field support specialist d 02/15 CBC w/ auto diff WBC 10*3/u L 4.2 9.1 8.8 FINAL Marcelo Olson B&Whole Blood [facility] ([facility]), [address], [address] [place] [address] 02/15 CBC w/ auto diff Cristobal # (ANC) 10*3/u L 1.78 5.38 4.12 FINAL Marcelo Mahmoods B&Whole Blood [facility] ([facility]), [address], Suite [facility] [place] [address] 02/15 CBC w/ auto diff LY # 10*3/u L 1.32 3.57 3.32 FINAL Marcelo Mahmoods B&Whole Blood [facility] ([facility]), [address], [address] [facility] [place] [address] 02/15 CBC w/ auto diff MO # 10*3/u L 0.3 0.82 0.96 High FINAL Marcelo Mahmoods B&Whole Blood [facility] ([facility]), [address], [address] [facility] [place] [address] 02/15 CBC w/ auto diff EO # 10*3/u lL 0.04 0.54 0.36 FINAL Marcelo Mahmoods B&Whole Blood [facility] (T), [address], [address] [facility] [place] [address] 02/15 CBC w/ auto diff BA # 10*3/u L 0.01 0.08 0.04 FINAL Marcelo Mahmoods B&Whole Blood [facility] ([facility]), [address], [address] [facility] [place] [address] 02/15 CBC w/ auto diff Cristobal % % 34.0 67.9 46.8 FINAL Marcelo Mahmoods B&Whole Blood [facility] ([facility]), [address] [place], [address] [facility] [place] [facility] 02/15 CBC w/ auto diff LY % % 21.8 53.1 37.7 FINAL Marcelo Mahmoods B&Whole Blood [facility] ([facility]), [address], [address] [facility] [place] [address] 02/15 CBC w/ auto diff MO % % 5.3 12.2 10.9 FINAL Marcelo Mahmoods B&Whole Blood [facility] ([facility]), [address], [address] [facility] [place] [address] 02/15 CBC w/ auto diff EO % % 0.8 7.0 4.1 FINAL Marcelo Mahmoods B&Whole Blood [facility] ([facility]), [address], [address] [facility] [place] [address] 02/15 CBC w/ auto diff BA % % 0.2 1.2 0.5 FINAL Marcelo Mahmoods B&Whole Blood [facility] ([facility]), [address], [address] [facility] [place] [address] 02/15 CBC w/ auto diff RBC 10*6/u L 4.63 6.08 5.33 FINAL Marcelo Olson B&Whole Blood [facility] ([facility]), [address] [place], [address] [facility] [place] [facility] 02/15 CBC w/ auto diff HGB g/dL 13.7 17.5 17.4 FINAL Marcelo Olson B&Whole Blood [facility] ([facility]), [address] [place], [address] [facility] [place] [facility] 02/15 CBC w/ auto diff HCT % 40.1 51.0 50.4 FINAL Marcelo Olson B&Whole Blood [facility] ([facility]), [address], [address] [place] [address] 02/15 CBC w/ auto diff MCV fL 79.0 92.2 94.6 High FINAL Marcelo Mahmoods B&Whole Blood [facility] ([facility]), [address], [address] [place] [address] 02/15 CBC w/ auto diff MCH pg 25.7 32.2 32.6 High FINAL Marcelo Olson B&Whole Blood [facility] ([facility]), [address], [address] [place] [address] 02/15 CBC w/ auto diff MCHC g/dL 32.3 36.5 34.5 FINAL Marcelo Olson B&Whole Blood [facility] ([facility]), [address], [address] [place] [address] 02/15 CBC w/ auto diff RDW-C V, % % 11.6 14.4 14.0 FINAL Marcelo Olson B&Whole Blood [facility] ([facility]), [address] [place], [address] [facility] [place] [facility] 02/15 CBC w/ auto diff PLT 10*3/u L 163.0 337.0 172.0 FINAL Marcelo Mahmoods B&Whole Blood [facility] ([facility]), [address], [address] [facility] [place] [address] 05/31 CBC w/ auto diff WBC 10*3/u L 4.2 9.1 10.4 High FINAL Marcelo Mahmoods B&Whole Blood [facility] ([facility]), [address] [place], [address] [facility] [place] [facility] 05/31 CBC w/ auto diff Cristobal # (ANC) 10*3/u L 1.78 5.38 5.26 FINAL Marcelo Olson B&Whole Blood [facility] (T), [address], [address] [place] [address] 05/31 CBC w/ auto diff LY # 10*3/u L 1.32 3.57 3.84 High FINAL Marcelo Olson B&Whole Blood [facility] (T), [address], [address] [place] [address] 05/31 CBC w/ auto diff MO # 10*3/u L 0.3 0.82 0.94 High FINAL Marcelo Olson B&Whole Blood [facility] (T), [address], [address] [place] [address] 05/31 CBC w/ auto diff EO # 10*3/u lL 0.04 0.54 0.30 FINAL Marcelo Olson B&Whole Blood [facility] (T), [address], [address] [place] [address] 05/31 CBC w/ auto diff BA # 10*3/u L 0.01 0.08 0.03 FINAL Marcelo Olson B&Whole Blood [facility] (T), [address], [address] [place] [address] 05/31 CBC w/ auto diff Cristobal % % 34.0 67.9 50.7 FINAL Marcelo Olson B&Whole Blood [facility] (T), [address], [address] [place] [address] 05/31 CBC w/ auto diff LY % % 21.8 53.1 37.0 FINAL Marcelo Olson B&Whole Blood [facility] (T), [address], [address] [place] [address] 05/31 CBC w/ auto diff MO % % 5.3 12.2 9.1 FINAL Marcelo Mahmoods B&Whole Blood [facility] (T), [address], [address] [place] [address] 05/31 CBC w/ auto diff EO % % 0.8 7.0 2.9 FINAL Marcelo Mahmoods B&Whole Blood [facility] ([facility]), [address], [address] [place] [address] 05/31 CBC w/ auto diff BA % % 0.2 1.2 0.3 FINAL Marcelo Mahmoods B&Whole Blood [facility] ([facility]), [address], [address] [place] [address] 05/31 CBC w/ auto diff RBC 10*6/u L 4.63 6.08 5.01 FINAL Marcelo Mahmoods B&Whole Blood [facility] ([facility]), [address], [address] [place] [address] 05/31 CBC w/ auto diff HGB g/dL 13.7 17.5 16.4 FINAL Marcelo Mahmoods B&Whole Blood [facility] ([facility]), [address], [address] [place] [address] 05/31 CBC w/ auto diff HCT % 40.1 51.0 47.5 FINAL Marcelo Mahmoods B&Whole Blood [facility] ([facility]), [address], [address] [place] [address] 05/31 CBC w/ auto diff MCV fL 79.0 92.2 94.8 High FINAL Marcelo Mahmoods B&Whole Blood [facility] ([facility]), [address], [address] [place] [address] 05/31 CBC w/ auto diff MCH pg 25.7 32.2 32.7 High FINAL [facility] B&Whole Blood [facility] ([facility]), [address], [address] [place] [address] 05/31 CBC w/ auto diff MCHC g/dL 32.3 36.5 34.5 FINAL Marcelo Mahmoods B&Whole Blood [facility] ([facility]), [address], [address] [place] [address] 05/31 CBC w/ auto diff RDW-C V, % % 11.6 14.4 13.8 FINAL Marcelo Mahmoods B&Whole Blood [facility] ([facility]), [address], [address] [place] [address] 05/31 CBC w/ auto diff PLT 10*3/u L 163.0 337.0 161.0 Low FINAL Marcelo Mahmoods B&Whole Blood [facility] ([facility]), [address], [address] [place] [address] 06/21 CBC w/ auto diff WBC 10*3/u L 4.2 9.1 14.1 High FINAL Marcelo [facility] ([facility]), [address], [address] [place] [address] 06/21 CBC w/ auto diff Cristobal # (ANC) 10*3/u L 1.78 5.38 10.63 High FINAL Marcelo [facility] ([facility]), [address], [address] [place] [address] 06/21 CBC w/ auto diff LY # 10*3/u L 1.32 3.57 2.09 FINAL Marcelo [facility] ([facility]), [address], [address] [place] [address] 06/21 CBC w/ auto diff MO # 10*3/u L 0.3 0.82 1.34 High FINAL Marcelo [facility] ([facility]), [address], [address] [place] [address] 06/21 CBC w/ auto diff EO # 10*3/u lL 0.04 0.54 0.03 Low FINAL Marcelo [facility] ([facility]), [address], [address] [place] [address] 06/21 CBC w/ auto diff BA # 10*3/u L 0.01 0.08 0.02 FINAL Marcelo [facility] ([facility]), [address], [address] [place] [address] 06/21 CBC w/ auto diff Cristobal % % 34.0 67.9 75.4 High FINAL Marcelo [facility] ([facility]), [address], [address] [place] [address] 06/21 CBC w/ auto diff LY % % 21.8 53.1 14.8 Low FINAL Marcelo [facility] ([facility]), [address], [address] [place] [address] 06/21 CBC w/ auto diff MO % % 5.3 12.2 9.5 FINAL Marcelo [facility] ([facility]), [address], [address] [place] [address] 06/21 CBC w/ auto diff EO % % 0.8 7.0 0.2 Low FINAL [facility] ([facility]), [address], [address] [place] [address] 06/21 CBC w/ auto diff BA % % 0.2 1.2 0.1 Low FINAL [facility] ([facility]), [address], [address] [place] [address] 06/21 CBC w/ auto diff RBC 10*6/u L 4.63 6.08 4.90 FINAL [facility] ([facility]), [address], [address] [place] [address] 06/21 CBC w/ auto diff HGB g/dL 13.7 17.5 16.0 FINAL [facility] ([facility]), [address], [address] [place] [address] 06/21 CBC w/ auto diff HCT % 40.1 51.0 47.5 FINAL [facility] ([facility]), [address], [address] [place] [address] 06/21 CBC w/ auto diff MCV fL 79.0 92.2 96.9 High FINAL [facility] ([facility]), [address], [address] [place] [address] 06/21 CBC w/ auto diff MCH pg 25.7 32.2 32.7 High FINAL [facility] ([facility]), [address], [address] [place] [address] 06/21 CBC w/ auto diff MCHC g/dL 32.3 36.5 33.7 FINAL [facility] ([facility]), [address], [address] [place] [address] 06/21 CBC w/ auto diff RDW-C V, % % 11.6 14.4 14.0 FINAL [facility] ([facility]), [address], [address] [place] [address] 06/21 CBC w/ auto diff PLT 10*3/u L 163.0 337.0 185.0 FINAL Marcelo Olson [facility] ([facility]), [address], [address] [facility] [address] 07/23 Lab Repor t See field support specialist d Medications Date Name Route Dose [...] Oral orally 5000.0 mcg daily active 12/22 [place] 3-DHA-E PA-Fish Oil Oral Liquid 1,600 mg-500 [...] Print Location: Unknown Date/Time Printed: 10/19/2025 17:07 ([facility]) Patient: VALERIE PUENTES Sex: Male : [...] Selected Billing Code(s): PHLEBOTOMY THERAPEUTIC SEPARATE PROCEDURE (86098) Entered By Barbara Casas RN; Incident to Marcelo Olson MD * Nurse Note for: 09-NOV-19 [facility] Nurse Note Print Location: Unknown Date/Time Printed: 10/19/2025 17:07 ([facility]) Patient: VALERIE PUENTES Sex: Male : [...] Selected Billing Code(s): PHLEBOTOMY THERAPEUTIC SEPARATE PROCEDURE (24885) Entered By Ju Gupta RN; Incident to Marcelo Olson MD * Nurse Note for: 20-JUL-19 [facility] Nurse Note Print Location: Unknown Date/Time Printed: 10/19/2025 17:07 ([facility]) Patient: VALERIE PUENTES Sex: Male : [...] Selected Billing Code(s): PHLEBOTOMY THERAPEUTIC SEPARATE PROCEDURE (84381) Entered By Barbara Garcia RN; Incident to Marcelo Olson MD
--- OUTSIDE RECORDS SUMMARY | 2025-10-19 17:08 | XMS_ITS ---
Author Name Interface, [id number] lity Address [address] [place] [address] Organization [facility] Address [address] [place] [address] Allergies and Adverse Reactions Medication/Group Name Reaction [...] Marcelo Olson B&Whole Blood [facility] ([facility]), [address], [address] [place] [address] 02/15 CBC w/ auto diff Cristobal # (ANC) 10*3/u L 1.78 5.38 4.12 FINAL Marcelo Olson B&Whole Blood [facility] ([facility]), [address] [facility] [address] [place] [address] 02/15 CBC w/ auto diff LY # 10*3/u L 1.32 3.57 3.32 FINAL Marcelo Olson B&Whole Blood [facility] ([facility]), [address], [address] [place] [address] 02/15 CBC w/ auto diff MO # 10*3/u L 0.3 0.82 0.96 High FINAL Marcelo Olson B&Whole Blood [facility] ([facility]), [address], [address] [place] [address] 02/15 CBC w/ auto diff EO # 10*3/u lL 0.04 0.54 0.36 FINAL Marcelo Olson B&Whole Blood [facility] ([facility]), [address], [address] [place] [address] 02/15 CBC w/ auto diff BA # 10*3/u L 0.01 0.08 0.04 FINAL Marcelo Olson B&Whole Blood [facility] ([facility]), [address] [facility], [address] [place] [address] 02/15 CBC w/ auto diff Cristobal % % 34.0 67.9 46.8 FINAL Marcelo Olson B&Whole Blood [facility] ([facility]), [address], [address] [place] [address] 02/15 CBC w/ auto diff LY % % 21.8 53.1 37.7 FINAL Marcelo Olson B&Whole Blood [facility] (T), [address], Suite [facility][note 3] [place] [address] 02/15 CBC w/ auto diff MO % % 5.3 12.2 10.9 FINAL Marcelo Olson B&Whole Blood [facility] (T), [address], Suite [facility][note 3] [place] [facility] 02/15 CBC w/ auto diff EO % % 0.8 7.0 4.1 FINAL Marcelo Olson B&Whole Blood [facility] (T), [address], Suite [facility][note 3] [place] [facility] 02/15 CBC w/ auto diff BA % % 0.2 1.2 0.5 FINAL Marcelo Olson B&Whole Blood [facility] ([facility]), [address], [address] [facility][note 3] [place] [facility] 02/15 CBC w/ auto diff RBC 10*6/u L 4.63 6.08 5.33 FINAL Marcelo Olson B&Whole Blood [facility] ([facility]), [address], Suite [facility][note 3] [place] [facility] 02/15 CBC w/ auto diff HGB g/dL 13.7 17.5 17.4 FINAL Marcelo Olson B&Whole Blood [facility] (T), [address], [address] [place] [address] 02/15 CBC w/ auto diff HCT % 40.1 51.0 50.4 FINAL Marcelo Olson B&Whole Blood [facility] (T), [address], [address] [facility][note 3] [place] [facility] 02/15 CBC w/ auto diff MCV fL 79.0 92.2 94.6 High FINAL Marcelo Olson B&Whole Blood [facility] ([facility]), [address], Suite [facility][note 3] [place] [facility] 02/15 CBC w/ auto diff MCH pg 25.7 32.2 32.6 High FINAL Marcelo Olson B&Whole Blood [facility] (T), [address], [address] [facility][note 3] [place] [facility] 02/15 CBC w/ auto diff MCHC g/dL 32.3 36.5 34.5 FINAL Marcelo Mahmoods B&Whole Blood [facility] (T), [address], Suite [facility][note 3] [place] [id number] 02/15 CBC w/ auto diff RDW-C V, % % 11.6 14.4 14.0 FINAL Marcelo Mahmoods B&Whole Blood [facility] (T), [address], [address] [place] [address] 02/15 CBC w/ auto diff PLT 10*3/u L 163.0 337.0 172.0 FINAL Marcelo Mahmoods B&Whole Blood [facility] (T), [address], [address] [place] [address] 05/31 CBC w/ auto diff WBC 10*3/u L 4.2 9.1 10.4 High FINAL Marcelo Herms B&Whole Blood [facility] (T), [address], [address] [place] [address] 05/31 CBC w/ auto diff Cristobal # (ANC) 10*3/u L 1.78 5.38 5.26 FINAL Marcelo Mahmoods B&Whole Blood [facility] (T), [address], [address] [place] [address] 05/31 CBC w/ auto diff LY # 10*3/u L 1.32 3.57 3.84 High FINAL Marcelo Mahmoods B&Whole Blood [facility] (T), [address], [address] [place] [address] 05/31 CBC w/ auto diff MO # 10*3/u L 0.3 0.82 0.94 High FINAL Marcelo Herms B&Whole Blood [facility] (T), [address], [address] [place] [address] 05/31 CBC w/ auto diff EO # 10*3/u lL 0.04 0.54 0.30 FINAL Marcelo Herms B&Whole Blood [facility] (T), [address], [address] [place] [address] 05/31 CBC w/ auto diff BA # 10*3/u L 0.01 0.08 0.03 FINAL Marcelo Herms B&Whole Blood [facility] (T), [address], [address] [place] [address] 05/31 CBC w/ auto diff Cristobal % % 34.0 67.9 50.7 FINAL Marcelo Herms B&Whole Blood [facility] ([facility]), [address], Suite [facility][note 3] [place] [address] 05/31 CBC w/ auto diff LY % % 21.8 53.1 37.0 FINAL Marcelo Olson B&Whole Blood [facility] ([facility]), [address], [address] [facility][note 3] [place] [facility] 05/31 CBC w/ auto diff MO % % 5.3 12.2 9.1 FINAL Marcelo Olson B&Whole Blood [facility] ([facility]), [address], [address] [facility][note 3] [place] [facility] 05/31 CBC w/ auto diff EO % % 0.8 7.0 2.9 FINAL Marcelo Olson B&Whole Blood [facility] ([facility]), [address], [address] [place] [address] 05/31 CBC w/ auto diff BA % % 0.2 1.2 0.3 FINAL Marcelo Olson B&Whole Blood [facility] (T), [address], [address] [place] [address] 05/31 CBC w/ auto diff RBC 10*6/u L 4.63 6.08 5.01 FINAL Marcelo Olson B&Whole Blood [facility] (T), [address], [address] [place] [address] 05/31 CBC w/ auto diff HGB g/dL 13.7 17.5 16.4 FINAL Marcelo Olson B&Whole Blood [facility] ([facility]), [address], [address] [place] [address] 05/31 CBC w/ auto diff HCT % 40.1 51.0 47.5 FINAL Marcelo Olson B&Whole Blood [facility] ([facility]), [address], [address] [place] [address] 05/31 CBC w/ auto diff MCV fL 79.0 92.2 94.8 High FINAL Marcelo Mahmoods B&Whole Blood [facility] ([facility]), [address], [address] [place] [address] 05/31 CBC w/ auto diff MCH pg 25.7 32.2 32.7 High FINAL Marcelo Mahmoods B&Whole Blood [facility] ([facility]), [address], [address] [place] [address] 05/31 CBC w/ auto diff MCHC g/dL 32.3 36.5 34.[address] [facility] B&Whole Blood [facility] (T), [address], [address] [place] [address] 05/31 CBC w/ auto diff RDW-C V, % % 11.6 14.4 13.[address] [facility] B&Whole Blood [facility] (T), [address], [address] [place] [address] 05/31 CBC w/ auto diff PLT 10*3/u L 163.0 337.0 161.0 Low FINAL [facility] B&Whole Blood [facility] ([facility]), [address], [address] [place] [address] 06/21 CBC w/ auto diff WBC 10*3/u L 4.2 9.1 14.1 High FINAL [facility] ([facility]), [address], [address] [place] [address] 06/21 CBC w/ auto diff Cristobal # (ANC) 10*3/u L 1.78 5.38 10.63 High FINAL [facility] ([facility]), [address], [address] [place] [address] 06/21 CBC w/ auto diff LY # 10*3/u L 1.32 3.57 2.09 FINAL [facility] ([facility]), [address], [address] [place] [address] 06/21 CBC w/ auto diff MO # 10*3/u L 0.3 0.82 1.34 High FINAL [facility] ([facility]), [address], [address] [place] [address] 06/21 CBC w/ auto diff EO # 10*3/u lL 0.04 0.54 0.03 Low FINAL [facility] ([facility]), [address], [address] [place] [address] 06/21 CBC w/ auto diff BA # 10*3/u L 0.01 0.08 0.02 FINAL [facility] ([facility]), [address], [address] [place] [address] 06/21 CBC w/ auto diff Cristobal % % 34.0 67.9 75.4 High FINAL [facility] ([facility]), [address], [address] [place] [address] 06/21 CBC w/ auto diff LY % % 21.8 53.1 14.8 Low FINAL [facility] ([facility]), [address], [address] [place] [address] 06/21 CBC w/ auto diff MO % % 5.3 12.2 9.5 FINAL [facility] ([facility]), [address], [address] [place] [address] 06/21 CBC w/ auto diff EO % % 0.8 7.0 0.2 Low FINAL [facility] ([facility]), [address], [address] [place] [address] 06/21 CBC w/ auto diff BA % % 0.2 1.2 0.1 Low FINAL [facility] ([facility]), [address], [address] [place] [address] 06/21 CBC w/ auto diff RBC 10*6/u L 4.63 6.08 4.90 FINAL [facility] ([facility]), [address], [address] [place] [address] 06/21 CBC w/ auto diff HGB g/dL 13.7 17.5 16.0 FINAL [facility] ([facility]), [address], [address] [place] [address] 06/21 CBC w/ auto diff HCT % 40.1 51.0 47.5 FINAL [facility] ([facility]), [address], [address] [place] [address] 06/21 CBC w/ auto diff MCV fL 79.0 92.2 96.9 High FINAL [facility] ([facility]), [address], [address] [place] [address] 06/21 CBC w/ auto diff MCH pg 25.7 32.2 32.7 High FINAL [facility] ([facility]), [address], [address] [facility] [address] 06/21 CBC w/ auto diff MCHC g/dL 32.3 36.5 33.7 FINAL [facility] ([facility]), [address], [address] [facility] [address] 06/21 CBC w/ auto diff RDW-C V, % % 11.6 14.4 14.0 FINAL [facility] ([facility]), [address], [address] [facility] [address] 06/21 CBC w/ auto diff PLT 10*3/u L 163.0 337.0 185.0 FINAL [facility] ([facility]), [address], [address] [facility] [address] 07/23 Lab Repor t See hog raiser d Medications Date Name Route Dose Frequency Instructions Start Date End Date Status Fill Status Indication 12/22 Sitagli ptin-Me tformin Oral 50 mg-1,00 0 mg orally 1.0 2 times per day active 12/22 Aspirin Oral orally 81.0 mg daily active 12/22 Insulin Detemir Subcuta neous 100 unit/mL subcutan eously 36.0 every evening active 12/22 Cyanoco balamin Oral orally 5000.0 mcg daily active 12/22 [place] 3-DHA-E PA-Fish Oil Oral Liquid 1,600 mg-500 [...] Print Location: Unknown Date/Time Printed: 10/19/2025 17:08 (Lauren/[facility]) Patient: VALERIE PUENTES Sex: Male : [...] Selected Billing Code(s): PHLEBOTOMY THERAPEUTIC SEPARATE PROCEDURE (52922) Entered By Barbara Casas RN; Incident to Marcelo Olson MD
--- OUTSIDE RECORDS SUMMARY | 2025-10-19 17:08 | XMS_ITS ---
Author Name Interface, [id number] lity Address [address] [place] [address] Organization [facility] Address [address] [place] [address] Allergies and Adverse Reactions Medication/Group Name Reaction [...] L 4.2 9.1 14.1 High FINAL Marcelo [facility] ([facility]), [address], [address] [facility] [address] 06/21 CBC w/ auto diff Cristobal # (ANC) 10*3/u L 1.78 5.38 10.63 High FINAL Marcelo [facility] ([facility]), [address], [address] [facility] [address] 06/21 CBC w/ auto diff LY # 10*3/u L 1.32 3.57 2.09 FINAL [facility] ([facility]), [address], [address] [facility] [address] 06/21 CBC w/ auto diff MO # 10*3/u L 0.3 0.82 1.34 High FINAL Marcelo [facility] ([facility]), [address], [address] [place] [address] 06/21 CBC w/ auto diff EO # 10*3/u lL 0.04 0.54 0.03 Low FINAL Marcelo [facility] ([facility]), [address], [address] [place] [address] 06/21 CBC w/ auto diff BA # 10*3/u L 0.01 0.08 0.02 FINAL Marcelo [facility] ([facility]), [address], [address] [place] [address] 06/21 CBC w/ auto diff Cristobal % % 34.0 67.9 75.4 High FINAL Marceol [facility] ([facility]), [address], [address] [place] [address] 06/21 CBC w/ auto diff LY % % 21.8 53.1 14.8 Low FINAL Marcelo [facility] ([facility]), [address], [address] [place] [address] 06/21 CBC w/ auto diff MO % % 5.3 12.2 9.5 FINAL Marcelo [facility] ([facility]), [address], [address] [place] [address] 06/21 CBC w/ auto diff EO % % 0.8 7.0 0.2 Low FINAL Marcelo [facility] ([facility]), [address], [address] [place] [address] 06/21 CBC w/ auto diff BA % % 0.2 1.2 0.1 Low FINAL Marcelo [facility] ([facility]), [address], [address] [place] [address] 06/21 CBC w/ auto diff RBC 10*6/u L 4.63 6.08 4.90 FINAL Marcelo [facility] ([facility]), [address], [address] [place] [address] 06/21 CBC w/ auto diff HGB g/dL 13.7 17.5 16.0 FINAL [facility] ([facility]), [address], [address] [place] [address] 06/21 CBC w/ auto diff HCT % 40.1 51.0 47.5 FINAL [facility] ([facility]), [address], [address] [place] [address] 06/21 CBC w/ auto diff MCV fL 79.0 92.2 96.9 High FINAL [facility] ([facility]), [address], [address] [place], [place] [address] 06/21 CBC w/ auto diff MCH pg 25.7 32.2 32.7 High FINAL [facility] ([facility]), [address], [address] [place] [address] 06/21 CBC w/ auto diff MCHC g/dL 32.3 36.5 33.7 FINAL [facility] ([facility]), [address], [address] [facility] [address] 06/21 CBC w/ auto diff RDW-C V, % % 11.6 14.4 14.0 FINAL [facility] ([facility]), [address], [address] [facility] [address] 06/21 CBC w/ auto diff PLT 10*3/u L 163.0 337.0 185.0 FINAL [facility] ([facility]), [address], [address] [place], [place] [address] 07/23 Lab Repor t See music composition teacher d Medications Date Name Route Dose Frequency Instructions Start Date End Date Status Fill Status Indication 12/22 Sitagli ptin-Me tformin Oral 50 mg-1,00 0 mg orally 1.0 2 times per day active 12/22 Aspirin Oral orally 81.0 mg daily active 12/22 Insulin Detemir Subcuta neous 100 unit/mL subcutan eously 36.0 every evening active 12/22 Cyanoco balamin Oral orally 5000.0 mcg daily active 12/22 [place] 3-DHA-E PA-Fish Oil Oral Liquid 1,600 mg-500 [...]
--- OUTSIDE RECORDS SUMMARY | 2025-10-19 17:08 | XMS_ITS ---
Author Name Interface, [id number] lity Address [address] [place] [address] Organization [facility] Address [address] [place] [address] Allergies and Adverse Reactions Medication/Group Name Reaction [...] Olson B&Whole Blood [facility] ([facility]), [address], [address] [place] [address] 02/15 CBC w/ auto diff Cristobal # (ANC) 10*3/u L 1.78 5.38 4.12 FINAL Marcelo Olson B&Whole Blood [facility] ([facility]), [address] [place] [address] 02/15 CBC w/ auto diff LY # 10*3/u L 1.32 3.57 3.32 FINAL Marcelo Olson B&Whole Blood [facility] ([facility]), [address], [address] [place] [address] 02/15 CBC w/ auto diff MO # 10*3/u L 0.3 0.82 0.96 High FINAL Marcelo Olson B&Whole Blood [facility] ([facility]), [address], [address] [place] [address] 02/15 CBC w/ auto diff EO # 10*3/u lL 0.04 0.54 0.36 FINAL Marcelo Olson B&Whole Blood [facility] ([facility]), [address], [address] [place] [address] 02/15 CBC w/ auto diff BA # 10*3/u L 0.01 0.08 0.04 FINAL Marcelo Olson B&Whole Blood [facility] ([facility]), [address], [address] [place] [address] 02/15 CBC w/ auto diff Cristobal % % 34.0 67.9 46.8 FINAL Marcelo Olson B&Whole Blood [facility] ([facility]), [address], [address] [place] [address] 02/15 CBC w/ auto diff LY % % 21.8 53.1 37.7 FINAL Marcelo Olson B&Whole Blood [facility] (T), [address], Suite [facility] [place] [address] 02/15 CBC w/ auto diff MO % % 5.3 12.2 10.9 FINAL Marcelo Olson B&Whole Blood [facility] (T), [address], Suite [facility] [place] [facility] 02/15 CBC w/ auto diff EO % % 0.8 7.0 4.1 FINAL Marcelo Olson B&Whole Blood [facility] (T), [address], Suite [facility] [place] [facility] 02/15 CBC w/ auto diff BA % % 0.2 1.2 0.5 FINAL Marcelo Olson B&Whole Blood [facility] ([facility]), [address], Suite [facility] [place] [facility] 02/15 CBC w/ auto diff RBC 10*6/u L 4.63 6.08 5.33 FINAL Marcelo Olson B&Whole Blood [facility] ([facility]), [address], Suite [facility] [place] [facility] 02/15 CBC w/ auto diff HGB g/dL 13.7 17.5 17.4 FINAL Marcelo Olson B&Whole Blood [facility] (T), [address], [address] [place] [address] 02/15 CBC w/ auto diff HCT % 40.1 51.0 50.4 FINAL Marcelo Olson B&Whole Blood [facility] (T), [address], Suite [facility] [place] [facility] 02/15 CBC w/ auto diff MCV fL 79.0 92.2 94.6 High FINAL Marcelo Olson B&Whole Blood [facility] ([facility]), [address], Suite [facility] [place] [facility] 02/15 CBC w/ auto diff MCH pg 25.7 32.2 32.6 High FINAL Marcelo Olson B&Whole Blood [facility] (T), [address], Suite [facility] [place] [facility] 02/15 CBC w/ auto diff MCHC g/dL 32.3 36.5 34.5 FINAL Marcelo Mahmoods B&Whole Blood [facility] (T), [address], Suite [facility] [place] [address] 02/15 CBC w/ auto diff RDW-C V, % % 11.6 14.4 14.0 FINAL Marcelo Mahmoods B&Whole Blood [facility] (T), [address], [address] [place] [address] 02/15 CBC w/ auto diff PLT 10*3/u L 163.0 337.0 172.0 FINAL Marcelo Mahmoods B&Whole Blood [facility] (T), [address], [address] [place] [address] 05/31 CBC w/ auto diff WBC 10*3/u L 4.2 9.1 10.4 High FINAL Marcelo Herms B&Whole Blood [facility] (T), [address], [address] [place] [address] 05/31 CBC w/ auto diff Cristobal # (ANC) 10*3/u L 1.78 5.38 5.26 FINAL Marcelo Mahmoods B&Whole Blood [facility] (T), [address], [address] [place] [address] 05/31 CBC w/ auto diff LY # 10*3/u L 1.32 3.57 3.84 High FINAL Marcelo Mahmoods B&Whole Blood [facility] (T), [address], [address] [place] [address] 05/31 CBC w/ auto diff MO # 10*3/u L 0.3 0.82 0.94 High FINAL Marcelo Herms B&Whole Blood [facility] (T), [address], [address] [place] [address] 05/31 CBC w/ auto diff EO # 10*3/u lL 0.04 0.54 0.30 FINAL Marcelo Herms B&Whole Blood [facility] (T), [address], [address] [place] [address] 05/31 CBC w/ auto diff BA # 10*3/u L 0.01 0.08 0.03 FINAL Marcelo Herms B&Whole Blood [facility] (T), [address], [address] [place] [address] 05/31 CBC w/ auto diff Cristobal % % 34.0 67.9 50.7 FINAL Marcelo Herms B&Whole Blood [facility] ([facility]), [address], Suite [facility] [place] [address] 05/31 CBC w/ auto diff LY % % 21.8 53.1 37.0 FINAL Marcelo Olson B&Whole Blood [facility] ([facility]), [address], Suite [facility] [place] [facility] 05/31 CBC w/ auto diff MO % % 5.3 12.2 9.1 FINAL Marcelo Olson B&Whole Blood [facility] ([facility]), [address], [address] [facility] [place] [facility] 05/31 CBC w/ auto diff EO % % 0.8 7.0 2.9 FINAL Marcelo Olson B&Whole Blood [facility] ([facility]), [address], [address] [place] [address] 05/31 CBC w/ auto diff BA % % 0.2 1.2 0.3 FINAL Marcelo Olson B&Whole Blood [facility] (T), [address], [address] [place] [address] 05/31 CBC w/ auto diff RBC 10*6/u L 4.63 6.08 5.01 FINAL Marcelo Olson B&Whole Blood [facility] (T), [address], [address] [place] [address] 05/31 CBC w/ auto diff HGB g/dL 13.7 17.5 16.4 FINAL Marcelo Olson B&Whole Blood [facility] ([facility]), [address], [address] [place] [address] 05/31 CBC w/ auto diff HCT % 40.1 51.0 47.5 FINAL Marcelo Olson B&Whole Blood [facility] ([facility]), [address], [address] [place] [address] 05/31 CBC w/ auto diff MCV fL 79.0 92.2 94.8 High FINAL Marcelo Mahmoods B&Whole Blood [facility] ([facility]), [address], [address] [place] [address] 05/31 CBC w/ auto diff MCH pg 25.7 32.2 32.7 High FINAL Marcelo Mahmoods B&Whole Blood [facility] ([facility]), [address], [address] [place] [address] 05/31 CBC w/ auto diff MCHC g/dL 32.3 36.5 34.5 FINAL [facility] B&Whole Blood [facility] (T), [address], [address] [place] [address] 05/31 CBC w/ auto diff RDW-C V, % % 11.6 14.4 13.8 FINAL [facility] B&Whole Blood [facility] (T), [address], [address] [place] [address] 05/31 CBC w/ auto diff PLT 10*3/u L 163.0 337.0 161.0 Low FINAL [facility] B&Whole Blood [facility] ([facility]), [address], [address] [place] [address] 06/21 CBC w/ auto diff WBC 10*3/u L 4.2 9.1 14.1 High FINAL [facility] ([facility]), [address], [address] [place] [address] 06/21 CBC w/ auto diff Cristobal # (ANC) 10*3/u L 1.78 5.38 10.63 High FINAL [facility] ([facility]), [address], [address] [place] [address] 06/21 CBC w/ auto diff LY # 10*3/u L 1.32 3.57 2.09 FINAL [facility] ([facility]), [address], [address] [place] [address] 06/21 CBC w/ auto diff MO # 10*3/u L 0.3 0.82 1.34 High FINAL [facility] ([facility]), [address], [address] [place] [address] 06/21 CBC w/ auto diff EO # 10*3/u lL 0.04 0.54 0.03 Low FINAL [facility] ([facility]), [address], [address] [place] [address] 06/21 CBC w/ auto diff BA # 10*3/u L 0.01 0.08 0.02 FINAL [facility] ([facility]), [address], [address] [place] [address] 06/21 CBC w/ auto diff Cristobal % % 34.0 67.9 75.4 High FINAL [facility] ([facility]), [address], [address] [place] [address] 06/21 CBC w/ auto diff LY % % 21.8 53.1 14.8 Low FINAL [facility] ([facility]), [address], [address] [place] [address] 06/21 CBC w/ auto diff MO % % 5.3 12.2 9.5 FINAL [facility] ([facility]), [address], [address] [place] [address] 06/21 CBC w/ auto diff EO % % 0.8 7.0 0.2 Low FINAL [facility] ([facility]), [address], [address] [place] [address] 06/21 CBC w/ auto diff BA % % 0.2 1.2 0.1 Low FINAL [facility] ([facility]), [address], [address] [place] [address] 06/21 CBC w/ auto diff RBC 10*6/u L 4.63 6.08 4.90 FINAL [facility] ([facility]), [address], [address] [place] [address] 06/21 CBC w/ auto diff HGB g/dL 13.7 17.5 16.0 FINAL [facility] ([facility]), [address], [address] [place] [address] 06/21 CBC w/ auto diff HCT % 40.1 51.0 47.5 FINAL [facility] ([facility]), [address], [address] [place] [address] 06/21 CBC w/ auto diff MCV fL 79.0 92.2 96.9 High FINAL [facility] ([facility]), [address], [address] [place] [address] 06/21 CBC w/ auto diff MCH pg 25.7 32.2 32.7 High FINAL [facility] ([facility]), [address], [address] [facility] [address] 06/21 CBC w/ auto diff MCHC g/dL 32.3 36.5 33.7 FINAL [facility] ([facility]), [address], [address] [facility] [address] 06/21 CBC w/ auto diff RDW-C V, % % 11.6 14.4 14.0 FINAL [facility] ([facility]), [address], [address] [facility] [address] 06/21 CBC w/ auto diff PLT 10*3/u L 163.0 337.0 185.0 FINAL [facility] ([facility]), [address], [address] [facility] [address] 07/23 Lab Repor t See catering attendant d Medications Date Name Route Dose Frequency Instructions Start Date End Date Status Fill Status Indication 12/22 Sitagli ptin-Me tformin Oral 50 mg-1,00 0 mg orally 1.0 2 times per day active 12/22 Aspirin Oral orally 81.0 mg daily active 12/22 Insulin Detemir Subcuta neous 100 unit/mL subcutan eously 36.0 every evening active 12/22 Cyanoco balamin Oral orally 5000.0 mcg daily active 12/22 [place] 3-DHA-E PA-Fish Oil Oral Liquid 1,600 [...] Print Location: Unknown Date/Time Printed: 10/19/2025 17:08 (Lauren/[facility]) Patient: VALERIE PUENTES Sex: Male [...] Selected Billing Code(s): PHLEBOTOMY THERAPEUTIC SEPARATE PROCEDURE (29924) Entered By Barbara Casas RN; Incident to Marcelo Olson MD
--- OUTSIDE RECORDS SUMMARY | 2025-10-19 17:08 | XMS_ITS ---
Author Name Interface, [id number] lity Address [address] [place] [address] Organization [facility] Address [address] [place] [address] Allergies and Adverse Reactions Medication/Group Name Reaction [...] L 4.2 9.1 14.1 High FINAL Marcelo [facility] ([facility]), [address], [address] [facility] [address] 06/21 CBC w/ auto diff Cristobal # (ANC) 10*3/u L 1.78 5.38 10.63 High FINAL Marcelo [facility] ([facility]), [address], [address] [facility] [address] 06/21 CBC w/ auto diff LY # 10*3/u L 1.32 3.57 2.09 FINAL [facility] ([facility]), [address], [address] [facility] [address] 06/21 CBC w/ auto diff MO # 10*3/u L 0.3 0.82 1.34 High FINAL Marcelo [facility] ([facility]), [address], [address] [place] [address] 06/21 CBC w/ auto diff EO # 10*3/u lL 0.04 0.54 0.03 Low FINAL Marcelo [facility] ([facility]), [address], [address] [place] [address] 06/21 CBC w/ auto diff BA # 10*3/u L 0.01 0.08 0.02 FINAL Marcelo [facility] ([facility]), [address], [address] [place] [address] 06/21 CBC w/ auto diff Cristobal % % 34.0 67.9 75.4 High FINAL Marcelo [facility] ([facility]), [address], [address] [place] [address] 06/21 CBC w/ auto diff LY % % 21.8 53.1 14.8 Low FINAL Marcelo [facility] ([facility]), [address], [address] [place] [address] 06/21 CBC w/ auto diff MO % % 5.3 12.2 9.5 FINAL Marcelo [facility] ([facility]), [address], [address] [place] [address] 06/21 CBC w/ auto diff EO % % 0.8 7.0 0.2 Low FINAL Marcelo [facility] ([facility]), [address], [address] [place] [address] 06/21 CBC w/ auto diff BA % % 0.2 1.2 0.1 Low FINAL Marcelo [facility] ([facility]), [address], [address] [place] [address] 06/21 CBC w/ auto diff RBC 10*6/u L 4.63 6.08 4.90 FINAL Marcelo [facility] ([facility]), [address], [address] [place] [address] 06/21 CBC w/ auto diff HGB g/dL 13.7 17.5 16.0 FINAL [facility] ([facility]), [address], [address] [place] [address] 06/21 CBC w/ auto diff HCT % 40.1 51.0 47.5 FINAL [facility] ([facility]), [address], [address] [place] [address] 06/21 CBC w/ auto diff MCV fL 79.0 92.2 96.9 High FINAL [facility] ([facility]), [address], [address] [place], [place] [address] 06/21 CBC w/ auto diff MCH pg 25.7 32.2 32.7 High FINAL [facility] ([facility]), [address], [address] [place] [address] 06/21 CBC w/ auto diff MCHC g/dL 32.3 36.5 33.7 FINAL [facility] ([facility]), [address], [address] [facility] [address] 06/21 CBC w/ auto diff RDW-C V, % % 11.6 14.4 14.0 FINAL [facility] ([facility]), [address], [address] [facility] [address] 06/21 CBC w/ auto diff PLT 10*3/u L 163.0 337.0 185.0 FINAL [facility] ([facility]), [address], [address] [place], [place] [address] 07/23 Lab Repor t 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
--- OUTSIDE RECORDS SUMMARY | 2025-10-19 17:08 | XMS_ITS ---
Author Name Interface, [id number] lity Address [address] [place] [address] Organization [facility] Address [address] [place] [address] Allergies and Adverse Reactions Medication/Group Name Reaction [...] 8.8 FINAL Marcelo Olson B&Whole Blood Formerly [facility] ([facility]), [address], [address] [place] [address] 02/15 CBC w/ auto diff Cristobal # (ANC) 10*3/u L 1.78 5.38 4.12 FINAL Marcelo Olson B&Whole Blood Formerly [facility] ([facility]), [address], [address] [place] [address] 02/15 CBC w/ auto diff LY # 10*3/u L 1.32 3.57 3.32 FINAL Marcelo Olson B&Whole Blood Formerly [facility] ([facility]), [address], [address] [place] [address] 02/15 CBC w/ auto diff MO # 10*3/u L 0.3 0.82 0.96 High FINAL Marcelo Olson B&Whole Blood Formerly [facility] ([facility]), [address], [address] [place] [address] 02/15 CBC w/ auto diff EO # 10*3/u lL 0.04 0.54 0.36 FINAL Marcelo Olson B&Whole Blood Formerly [facility] ([facility]), [address], [address] [place] [address] 02/15 CBC w/ auto diff BA # 10*3/u L 0.01 0.08 0.04 FINAL Marcelo Olson B&Whole Blood Formerly [facility] ([facility]), [address], [address] [place] [address] 02/15 CBC w/ auto diff Cristobal % % 34.0 67.9 46.8 FINAL Marcelo Olson B&Whole Blood Formerly [facility] ([facility]), [address], [address] [place] [address] 02/15 CBC w/ auto diff LY % % 21.8 53.1 37.7 FINAL Marcelo Mahmoods B&Whole Blood [facility] ([facility]), [address], [place] [facility] [place] [address] 02/15 CBC w/ auto diff MO % % 5.3 12.2 10.9 FINAL Marcelo Mahmoods B&Whole Blood [facility] ([facility]), [address], [place] [facility] [place] [address] 02/15 CBC w/ auto diff EO % % 0.8 7.0 4.1 FINAL Marcelo Olson B&Whole Blood [facility] ([facility]), [address], [address] [facility] [place] [facility] 02/15 CBC w/ auto diff BA % % 0.2 1.2 0.5 FINAL Marcelo Mahmoods B&Whole Blood Formerly [facility] ([facility]), [address], [address] [facility] [place] [facility] 02/15 CBC w/ auto diff RBC 10*6/u L 4.63 6.08 5.33 FINAL Marcelo Mahmoods B&Whole Blood Formerly [facility] ([facility]), [address], [address] [facility] [place] [facility] 02/15 CBC w/ auto diff HGB g/dL 13.7 17.5 17.4 FINAL Marcelo Olson B&Whole Blood [facility] (T), [address], [address] [facility] [place] [facility] 02/15 CBC w/ auto diff HCT % 40.1 51.0 50.4 FINAL Marcelo Mahmoods B&Whole Blood Former[facility] ([facility]), [address], [address] [facility] [place] [facility] 02/15 CBC w/ auto diff MCV fL 79.0 92.2 94.6 High FINAL Marcelo Mahmoods B&Whole Blood [facility] ([facility]), [address], [place] [facility] [place] [address] 02/15 CBC w/ auto diff MCH pg 25.7 32.2 32.6 High FINAL Marcelo Mahmoods B&Whole Blood [facility] ([facility]), [address], [place] [facility] [place] [address] 02/15 CBC w/ auto diff MCHC g/dL 32.3 36.5 34.5 FINAL Marcelo Mahmoods B&Whole Blood [facility] ([facility]), [address], [address] [place] [address] 02/15 CBC w/ auto diff RDW-C V, % % 11.6 14.4 14.0 FINAL Marcelo Mahmoods B&Whole Blood Former[facility] (T), [address], [address] [place] [address] 02/15 CBC w/ auto diff PLT 10*3/u L 163.0 337.0 172.0 FINAL Marcelo Mahmoods B&Whole Blood Formerly [facility] ([facility]), [address], [address] [place] [address] 05/31 CBC w/ auto diff WBC 10*3/u L 4.2 9.1 10.4 High FINAL Marcelo Mahmoods B&Whole Blood Formerly [facility] ([facility]), [address], [address] [place] [address] 05/31 CBC w/ auto diff Cristobal # (ANC) 10*3/u L 1.78 5.38 5.26 FINAL Marcelo Mahmoods B&Whole Blood Formerly [facility] ([facility]), [address], [address] [place] [address] 05/31 CBC w/ auto diff LY # 10*3/u L 1.32 3.57 3.84 High FINAL Marcelo Mahmoods B&Whole Blood Formerly [facility] ([facility]), [address], [address] [place] [address] 05/31 CBC w/ auto diff MO # 10*3/u L 0.3 0.82 0.94 High FINAL Marcelo Mahmoods B&Whole Blood Formerly [facility] ([facility]), [address], [address] [place] [address] 05/31 CBC w/ auto diff EO # 10*3/u lL 0.04 0.54 0.30 FINAL Marcelo Mahmoods B&Whole Blood Formerly [facility] ([facility]), [address], [address] [place] [address] 05/31 CBC w/ auto diff BA # 10*3/u L 0.01 0.08 0.03 FINAL Marcelo Herms B&Whole Blood [facility] ([facility]), [address], [address] [place] [address] 05/31 CBC w/ auto diff Cristobal % % 34.0 67.9 50.7 FINAL Marcelo Herms B&Whole Blood [facility] (T), [address], [address] [facility] [place] [facility] 05/31 CBC w/ auto diff LY % % 21.8 53.1 37.0 FINAL Marcelo Olson B&Whole Blood Formerly [facility] ([facility]), [address], [address] [place] [address] 05/31 CBC w/ auto diff MO % % 5.3 12.2 9.1 FINAL Marcelo Olson B&Whole Blood Formerly [facility] ([facility]), [address], [address] [place] [address] 05/31 CBC w/ auto diff EO % % 0.8 7.0 2.9 FINAL Marcelo Olson B&Whole Blood Former[facility] ([facility]), [address], [address] [place] [address] 05/31 CBC w/ auto diff BA % % 0.2 1.2 0.3 FINAL Marcelo Olson B&Whole Blood Former[facility] ([facility]), [address], [address] [place] [address] 05/31 CBC w/ auto diff RBC 10*6/u L 4.63 6.08 5.01 FINAL Marcelo Olson B&Whole Blood Former[facility] ([facility]), [address], [address] [place] [address] 05/31 CBC w/ auto diff HGB g/dL 13.7 17.5 16.4 FINAL Marcelo Olson B&Whole Blood Former[facility] ([facility]), [address], [address] [place] [address] 05/31 CBC w/ auto diff HCT % 40.1 51.0 47.5 FINAL Marcelo Olson B&Whole Blood Former[facility] ([facility]), [address], [address] [place] [address] 05/31 CBC w/ auto diff MCV fL 79.0 92.2 94.8 High FINAL Marcelo Olson B&Whole Blood Former[facility] ([facility]), [address], [address] [place] [address] 05/31 CBC w/ auto diff MCH pg 25.7 32.2 32.7 High FINAL Marcelo Olson B&Whole Blood Former[facility] ([facility]), [address], [address] [place] [address] 05/31 CBC w/ auto diff MCHC g/dL 32.3 36.5 34.5 FINAL Marcelo [facility] B&Whole Blood [facility] ([facility]), [address], [address] [place] [address] 05/31 CBC w/ auto diff RDW-C V, % % 11.6 14.4 13.8 FINAL Marcelo [facility] B&Whole Blood Former[facility] ([facility]), [address], [address] [place] [address] 05/31 CBC w/ auto diff PLT 10*3/u L 163.0 337.0 161.0 Low FINAL [facility] B&Whole Blood Former[facility] ([facility]), [address], [address] [place] [address] 06/21 CBC w/ auto diff WBC 10*3/u L 4.2 9.1 14.1 High FINAL [facility] (T), [address], [address] [place] [address] 06/21 CBC w/ auto diff Cristobal # (ANC) 10*3/u L 1.78 5.38 10.63 High FINAL [facility] (T), [address], [address] [place] [address] 06/21 CBC w/ auto diff LY # 10*3/u L 1.32 3.57 2.09 FINAL [facility] (T), [address], [address] [place], [place] [id number] 06/21 CBC w/ auto diff MO # 10*3/u L 0.3 0.82 1.34 High FINAL [facility] ([facility]), [address], [address] [place], [place] [id number] 06/21 CBC w/ auto diff EO # 10*3/u lL 0.04 0.54 0.03 Low FINAL [facility] ([facility]), [address], [address] [facility] [address] 06/21 CBC w/ auto diff BA # 10*3/u L 0.01 0.08 0.02 FINAL [facility] ([facility]), [address], [address] [place] [address] 06/21 CBC w/ auto diff Cristobal % % 34.0 67.9 75.4 High FINAL Marcelo [facility] [address], [address] [place] [address] 06/21 CBC w/ auto diff LY % % 21.8 53.1 14.8 Low FINAL Marcelo [facility] ([facility] [address], [address] [place] [address] 06/21 CBC w/ auto diff MO % % 5.3 12.2 9.5 FINAL Marcelo [facility] ([facility]), [address], [address] [place] [address] 06/21 CBC w/ auto diff EO % % 0.8 7.0 0.2 Low FINAL Marcelo [facility] ([facility]), [address], [address] [place] [address] 06/21 CBC w/ auto diff BA % % 0.2 1.2 0.1 Low FINAL Marcelo [facility] ([facility] [address], [address] [place] [address] 06/21 CBC w/ auto diff RBC 10*6/u L 4.63 6.08 4.90 FINAL Marcelo [facility] ([facility]), [address], [address] [place] [address] 06/21 CBC w/ auto diff HGB g/dL 13.7 17.5 16.0 FINAL Marcelo [facility] [address], [address] [place] [address] 06/21 CBC w/ auto diff HCT % 40.1 51.0 47.5 FINAL Marcelo [facility] [address], [address] [place] [address] 06/21 CBC w/ auto diff MCV fL 79.0 92.2 96.9 High FINAL Marcelo [facility] ([facility]), [address], [address] [place] [address] 06/21 CBC w/ auto diff MCH pg 25.7 32.2 32.7 High FINAL [facility] ([facility]), [address], [address] [facility] [address] 06/21 CBC w/ auto diff MCHC g/dL 32.3 36.5 33.7 FINAL [facility] (T), [address], [address] [facility] [address] 06/21 CBC w/ auto diff RDW-C V, % % 11.6 14.4 14.0 FINAL [facility] (T), [address], [address] [facility] [address] 06/21 CBC w/ auto diff PLT 10*3/u L 163.0 337.0 185.0 FINAL [facility] ([facility]), [address], [address] [facility] [address] 07/23 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
--- OUTSIDE RECORDS SUMMARY | 2025-10-19 17:08 | XMS_ITS ---
Author Name Interface, [id number] lity Address [address] [place] [address] Organization [facility] Address [address] [place] [address] Allergies and Adverse Reactions Medication/Group Name Reaction [...] Marcelo Olson B&Whole Blood [facility] ([facility]), [address], [address] [place] [address] 07/20 CBC w/ auto diff Cristobal # (ANC) 10*3/u L 1.78 5.38 4.47 FINAL Marcelo Olson B&Whole Blood [facility] ([facility]), [address], Suite [facility] [place] [facility] 07/20 CBC w/ auto diff LY # 10*3/u L 1.32 3.57 3.40 FINAL Marcelo Olson B&Whole Blood [facility] ([facility]), [address], [address] [place], [place] [id number] 07/20 CBC w/ auto diff MO # 10*3/u L 0.3 0.82 0.80 FINAL Marcelo Olson B&Whole Blood [facility] ([facility]), [address], [address] [facility] [place] [address] 07/20 CBC w/ auto diff EO # 10*3/u lL 0.04 0.54 0.38 FINAL Marcelo Olson B&Whole Blood [facility] ([facility]), [address], [address] [facility] [place] [address] 07/20 CBC w/ auto diff BA # 10*3/u L 0.01 0.08 0.03 FINAL Marcelo Funez&Whole Blood [facility] ([facility]), [address], [address] [place] [address] 07/20 CBC w/ auto diff Cristobal % % 34.0 67.9 49.3 FINAL Marcelo Herms B&Whole Blood [facility] ([facility]), [address], [address] [place] [address] 07/20 CBC w/ auto diff LY % % 21.8 53.1 37.4 FINAL Marcelo Herms B&Whole Blood [facility] ([facility]), [address], [address] [place] [address] 07/20 CBC w/ auto diff MO % % 5.3 12.2 8.8 FINAL Marcelo Herms B&Whole Blood [facility] ([facility]), [address], [address] [place] [address] 07/20 CBC w/ auto diff EO % % 0.8 7.0 4.2 FINAL Marcelo Herms B&Whole Blood [facility] ([facility]), [address], [address] [place] [address] 07/20 CBC w/ auto diff BA % % 0.2 1.2 0.3 FINAL Marcelo Herms B&Whole Blood [facility] ([facility]), [address], [address] [place] [address] 07/20 CBC w/ auto diff RBC 10*6/u L 4.63 6.08 5.60 FINAL Marcelo Herms B&Whole Blood [facility] ([facility]), [address], [address] [place] [address] 07/20 CBC w/ auto diff HGB g/dL 13.7 17.5 18.2 High FINAL Marcelo Herms B&Whole Blood [facility] ([facility]), [address], [address] [place] [address] 07/20 CBC w/ auto diff HCT % 40.1 51.0 52.8 High FINAL Marcelo Herms B&Whole Blood [facility] ([facility]), [address], [address] [place] [address] 07/20 CBC w/ auto diff MCV fL 79.0 92.2 94.3 High FINAL Marcelo Herms B&Whole Blood [facility] ([facility]), [address], [address] [place] [address] 07/20 CBC w/ auto diff MCH pg 25.7 32.2 32.5 High FINAL Marcelo Herms B&Whole Blood [facility] ([facility]), [address], [address] [place] [address] 07/20 CBC w/ auto diff MCHC g/dL 32.3 36.5 34.5 FINAL Marcelo Herms B&Whole Blood [facility] ([facility]), [address], [address] [place] [address] 07/20 CBC w/ auto diff RDW-C V, % % 11.6 14.4 12.5 FINAL Marcelo Herms B&Whole Blood [facility] ([facility]), [address], [address] [place] [address] 07/20 CBC w/ auto diff PLT 10*3/u L 163.0 337.0 160.0 Low FINAL Marcelo Herms B&Whole Blood [facility] ([facility]), [address], [address] [place] [address] 11/09 CBC w/ auto diff WBC 10*3/u [...] Blood 5 02/12 Lab Repor t See can reconditioner d 02/15 CBC w/ auto diff WBC 10*3/u L 4.2 9.1 8.8 FINAL Marcelo Olson B&Whole Blood [facility] ([facility]), [address], [address] [place] [address] 02/15 CBC w/ auto diff Cristobal # (ANC) 10*3/u L 1.78 5.38 4.12 FINAL Marcelo Mahmoods B&Whole Blood [facility] ([facility]), [address], [address] [facility] [place] [address] 02/15 CBC w/ auto diff LY # 10*3/u L 1.32 3.57 3.32 FINAL Marcelo Mahmoods B&Whole Blood [facility] ([facility]), [address], [address] [facility] [place] [address] 02/15 CBC w/ auto diff MO # 10*3/u L 0.3 0.82 0.96 High FINAL Marcelo Mahmoods B&Whole Blood [facility] ([facility]), [address], [address] [facility] [address] 02/15 CBC w/ auto diff EO # 10*3/u lL 0.04 0.54 0.36 FINAL Marcelo Mahmoods B&Whole Blood [facility] ([facility]), [address], [address] [facility] [place] [address] 02/15 CBC w/ auto diff BA # 10*3/u L 0.01 0.08 0.04 FINAL Marcelo Mahmoods B&Whole Blood [facility] ([facility]), [address], [address] [facility] [address] 02/15 CBC w/ auto diff Cristobal % % 34.0 67.9 46.8 FINAL Marcelo Mahmoods B&Whole Blood [facility] ([facility]), [address], [address] [facility] [place] [facility] 02/15 CBC w/ auto diff LY % % 21.8 53.1 37.7 FINAL Marcelo Mahmoods B&Whole Blood [facility] ([facility]), [address], [address] [facility] [place] [address] 02/15 CBC w/ auto diff MO % % 5.3 12.2 10.9 FINAL Marcelo Mahmoods B&Whole Blood [facility] ([facility]), [address], [address] [facility] [place] [address] 02/15 CBC w/ auto diff EO % % 0.8 7.0 4.1 FINAL Marcelo Mahmoods B&Whole Blood [facility] ([facility]), [address], [address] [facility] [place] [address] 02/15 CBC w/ auto diff BA % % 0.2 1.2 0.5 FINAL Marcelo Mahmoods B&Whole Blood [facility] ([facility]), [address], [address] [facility] [place] [address] 02/15 CBC w/ auto diff RBC 10*6/u L 4.63 6.08 5.33 FINAL Marcelo Olson B&Whole Blood [facility] ([facility]), [address], [address] [facility] [place] [facility] 02/15 CBC w/ auto diff HGB g/dL 13.7 17.5 17.4 FINAL Marcelo Olson B&Whole Blood [facility] ([facility]), [address], [address] [facility] [place] [facility] 02/15 CBC w/ auto diff HCT % 40.1 51.0 50.4 FINAL Marcelo Olson B&Whole Blood [facility] ([facility]), [address], [address] [place] [address] 02/15 CBC w/ auto diff MCV fL 79.0 92.2 94.6 High FINAL Marcelo Mahmoods B&Whole Blood [facility] ([facility]), [address], [address] [place] [address] 02/15 CBC w/ auto diff MCH pg 25.7 32.2 32.6 High FINAL Marcelo Olson B&Whole Blood [facility] ([facility]), [address], [address] [place] [address] 02/15 CBC w/ auto diff MCHC g/dL 32.3 36.5 34.5 FINAL Marcelo Olson B&Whole Blood [facility] ([facility]), [address], [address] [place] [address] 02/15 CBC w/ auto diff RDW-C V, % % 11.6 14.4 14.0 FINAL Marcelo Olson B&Whole Blood [facility] ([facility]), [address], [address] [facility] [place] [facility] 02/15 CBC w/ auto diff PLT 10*3/u L 163.0 337.0 172.0 FINAL Marcelo Mahmoods B&Whole Blood [facility] ([facility]), [address], [address] [facility] [place] [address] 05/31 CBC w/ auto diff WBC 10*3/u L 4.2 9.1 10.4 High FINAL Marcelo Mahmoods B&Whole Blood [facility] ([facility]), [address], [address] [facility] [place] [facility] 05/31 CBC w/ auto diff Cristobal # (ANC) 10*3/u L 1.78 5.38 5.26 FINAL Marcelo Olson B&Whole Blood [facility] ([facility]), [address], [address] [place] [address] 05/31 CBC w/ auto diff LY # 10*3/u L 1.32 3.57 3.84 High FINAL Marcelo Olson B&Whole Blood [facility] ([facility]), [address], [address] [place] [address] 05/31 CBC w/ auto diff MO # 10*3/u L 0.3 0.82 0.94 High FINAL Marcelo Olson B&Whole Blood [facility] ([facility]), [address], [address] [place] [address] 05/31 CBC w/ auto diff EO # 10*3/u lL 0.04 0.54 0.30 FINAL Marcelo Olson B&Whole Blood [facility] ([facility]), [address], [address] [place] [address] 05/31 CBC w/ auto diff BA # 10*3/u L 0.01 0.08 0.03 FINAL Marcelo Olson B&Whole Blood [facility] ([facility]), [address], [address] [place] [address] 05/31 CBC w/ auto diff Cristobal % % 34.0 67.9 50.7 FINAL Marcelo Olson B&Whole Blood [facility] ([facility]), [address], [address] [place] [address] 05/31 CBC w/ auto diff LY % % 21.8 53.1 37.0 FINAL Marcelo Olson B&Whole Blood [facility] (T), [address], [address] [place] [address] 05/31 CBC w/ auto diff MO % % 5.3 12.2 9.1 FINAL Marcelo Mahmoods B&Whole Blood [facility] ([facility]), [address], [address] [place] [address] 05/31 CBC w/ auto diff EO % % 0.8 7.0 2.9 FINAL Marcelo Mahmoods B&Whole Blood [facility] ([facility]), [address], [address] [place] [address] 05/31 CBC w/ auto diff BA % % 0.2 1.2 0.3 FINAL Marcelo Mahmoods B&Whole Blood [facility] ([facility]), [address], [address] [place] [address] 05/31 CBC w/ auto diff RBC 10*6/u L 4.63 6.08 5.01 FINAL Marcelo Mahmoods B&Whole Blood [facility] ([facility]), [address], [address] [place] [address] 05/31 CBC w/ auto diff HGB g/dL 13.7 17.5 16.4 FINAL Marcelo Mahmoods B&Whole Blood [facility] ([facility]), [address], [address] [place] [address] 05/31 CBC w/ auto diff HCT % 40.1 51.0 47.5 FINAL Marcelo Mahmoods B&Whole Blood [facility] ([facility]), [address], [address] [place] [address] 05/31 CBC w/ auto diff MCV fL 79.0 92.2 94.8 High FINAL Marcelo Mahmoods B&Whole Blood [facility] ([facility]), [address], [address] [place] [address] 05/31 CBC w/ auto diff MCH pg 25.7 32.2 32.7 High FINAL [facility] B[facility]Whole Blood [facility] ([facility]), [address], [address] [place] [address] 05/31 CBC w/ auto diff MCHC g/dL 32.3 36.5 34.5 FINAL Marcelo Mahmoods B&Whole Blood [facility] ([facility]), [address], [address] [place] [address] 05/31 CBC w/ auto diff RDW-C V, % % 11.6 14.4 13.8 FINAL Marcelo Mahmoods B&Whole Blood [facility] ([facility]), [address], [address] [place] [address] 05/31 CBC w/ auto diff PLT 10*3/u L 163.0 337.0 161.0 Low FINAL Marcelo Mahmoods B&Whole Blood [facility] ([facility]), [address], [address] [place] [address] 06/21 CBC w/ auto diff WBC 10*3/u L 4.2 9.1 14.1 High FINAL Marcelo [facility] ([facility]), [address], [address] [place] [address] 06/21 CBC w/ auto diff Cristobal # (ANC) 10*3/u L 1.78 5.38 10.63 High FINAL Marcelo [facility] ([facility]), [address], [address] [place] [address] 06/21 CBC w/ auto diff LY # 10*3/u L 1.32 3.57 2.09 FINAL Marcelo [facility] ([facility]), [address], [address] [place] [address] 06/21 CBC w/ auto diff MO # 10*3/u L 0.3 0.82 1.34 High FINAL Marcelo [facility] ([facility]), [address], [address] [place] [address] 06/21 CBC w/ auto diff EO # 10*3/u lL 0.04 0.54 0.03 Low FINAL Marcelo [facility] ([facility]), [address], [address] [place] [address] 06/21 CBC w/ auto diff BA # 10*3/u L 0.01 0.08 0.02 FINAL Marcelo [facility] ([facility]), [address], [address] [place] [address] 06/21 CBC w/ auto diff Cristobal % % 34.0 67.9 75.4 High FINAL Marcelo [facility] ([facility]), [address], [address] [place] [address] 06/21 CBC w/ auto diff LY % % 21.8 53.1 14.8 Low FINAL Marcelo [facility] ([facility]), [address], [address] [place] [address] 06/21 CBC w/ auto diff MO % % 5.3 12.2 9.5 FINAL Marcelo [facility] ([facility]), [address], [address] [place] [address] 06/21 CBC w/ auto diff EO % % 0.8 7.0 0.2 Low FINAL [facility] ([facility]), [address], [address] [place] [address] 06/21 CBC w/ auto diff BA % % 0.2 1.2 0.1 Low FINAL [facility] ([facility]), [address], [address] [place] [address] 06/21 CBC w/ auto diff RBC 10*6/u L 4.63 6.08 4.90 FINAL [facility] ([facility]), [address], [address] [place] [address] 06/21 CBC w/ auto diff HGB g/dL 13.7 17.5 16.0 FINAL [facility] ([facility]), [address], [address] [place] [address] 06/21 CBC w/ auto diff HCT % 40.1 51.0 47.5 FINAL [facility] ([facility]), [address], [address] [place] [address] 06/21 CBC w/ auto diff MCV fL 79.0 92.2 96.9 High FINAL [facility] ([facility]), [address], [address] [place] [address] 06/21 CBC w/ auto diff MCH pg 25.7 32.2 32.7 High FINAL [facility] ([facility]), [address], [address] [place] [address] 06/21 CBC w/ auto diff MCHC g/dL 32.3 36.5 33.7 FINAL [facility] ([facility]), [address], [address] [place] [address] 06/21 CBC w/ auto diff RDW-C V, % % 11.6 14.4 14.0 FINAL [facility] ([facility]), [address], [address] [place] [address] 06/21 CBC w/ auto diff PLT 10*3/u L 163.0 337.0 185.0 FINAL Marcelo Olson [facility] ([facility]), [address], [address] [facility] [address] 07/23 Lab Repor t See can reconditioner d Medications Date Name Route Dose Frequency Instructions Start Date End Date Status Fill Status Indication 12/22 Sitagli ptin-Me tformin Oral 50 mg-1,00 0 mg orally 1.0 2 times per day active 12/22 Aspirin Oral orally 81.0 mg daily active 12/22 Insulin Detemir Subcuta neous 100 unit/mL subcutan eously 36.0 every evening active 12/22 Cyanoco balamin Oral orally 5000.0 mcg daily active 12/22 Spurger 3-DHA-E PA-Fish Oil Oral Liquid 1,600 mg-500 [...] Print Location: Unknown Date/Time Printed: 10/19/2025 17:07 ([facility]) Patient: VALERIE PUENTES Sex: Male : 1960 [...] Selected Billing Code(s): PHLEBOTOMY THERAPEUTIC SEPARATE PROCEDURE (27326) Entered By Barbara Casas RN; Incident to Marcelo Olson MD * Nurse Note for: 09-NOV-19 [facility] Nurse Note Print Location: Unknown Date/Time Printed: 10/19/2025 17:07 ([facility]) Patient: VALERIE PUENTES Sex: Male : 1960 [...] Selected Billing Code(s): PHLEBOTOMY THERAPEUTIC SEPARATE PROCEDURE (48738) Entered By Ju Gupta RN; Incident to Marcelo Olson MD * Nurse Note for: 20-JUL-19 [facility] Nurse Note Print Location: Unknown Date/Time Printed: 10/19/2025 17:07 ([facility]) Patient: VALERIE PUENTES Sex: Male : 1960 [...] Selected Billing Code(s): PHLEBOTOMY THERAPEUTIC SEPARATE PROCEDURE (35486) Entered By Barbara Garcia RN; Incident to Marcelo Olson MD
--- OUTSIDE RECORDS SUMMARY | 2025-10-19 17:08 | XMS_ITS ---
Author Name Interface, [id number] lity Address [address] [place] [address] Organization [facility] Address [address] [place] [address] Allergies and Adverse Reactions Medication/Group Name Reaction [...] L 4.2 9.1 9.1 High FINAL Marcelo Olsno B&Whole Blood [facility] ([facility]), [address], [address] [place] [address] 07/20 CBC w/ auto diff Cristobal # (ANC) 10*3/u L 1.78 5.38 4.47 FINAL Marcelo Olson B&Whole Blood [facility] ([facility]), [address], Suite [facility] [place] [facility] 07/20 CBC w/ auto diff LY # 10*3/u L 1.32 3.57 3.40 FINAL Marcelo Olson B&Whole Blood [facility] ([facility]), [address], [address] [place], [place] [id number] 07/20 CBC w/ auto diff MO # 10*3/u L 0.3 0.82 0.80 FINAL Marcelo Olson B&Whole Blood [facility] ([facility]), [address], [address] [facility] [place] [address] 07/20 CBC w/ auto diff EO # 10*3/u lL 0.04 0.54 0.38 FINAL Marcelo Olson B&Whole Blood [facility] ([facility]), [address], [address] [facility] [place] [address] 07/20 CBC w/ auto diff BA # 10*3/u L 0.01 0.08 0.03 FINAL Marcelo Funez&Whole Blood [facility] ([facility]), [address], [address] [place] [address] 07/20 CBC w/ auto diff Cristobal % % 34.0 67.9 49.3 FINAL Marcelo Herms B&Whole Blood [facility] ([facility]), [address], [address] [place] [address] 07/20 CBC w/ auto diff LY % % 21.8 53.1 37.4 FINAL Marcelo Herms B&Whole Blood [facility] (T), [address], [address] [place] [address] 07/20 CBC w/ auto diff MO % % 5.3 12.2 8.8 FINAL Marcelo Herms B&Whole Blood [facility] (T), [address], [address] [place] [address] 07/20 CBC w/ auto diff EO % % 0.8 7.0 4.2 FINAL Marcelo Herms B&Whole Blood [facility] (T), [address], [address] [place] [address] 07/20 CBC w/ auto diff BA % % 0.2 1.2 0.3 FINAL Marcelo Herms B&Whole Blood [facility] (T), [address], [address] [place] [address] 07/20 CBC w/ auto diff RBC 10*6/u L 4.63 6.08 5.60 FINAL Marcelo Herms B&Whole Blood [facility] (T), [address], [address] [place] [address] 07/20 CBC w/ auto diff HGB g/dL 13.7 17.5 18.2 High FINAL Marcelo Herms B&Whole Blood [facility] (T), [address], [address] [place] [address] 07/20 CBC w/ auto diff HCT % 40.1 51.0 52.8 High FINAL Marcelo Herms B&Whole Blood [facility] ([facility]), [address], [address] [place] [address] 07/20 CBC w/ auto diff MCV fL 79.0 92.2 94.3 High FINAL Marceol Herms B&Whole Blood [facility] ([facility]), [address], [address] [place] [address] 07/20 CBC w/ auto diff MCH pg 25.7 32.2 32.5 High FINAL Marcelo Herms B&Whole Blood [facility] ([facility]), [address], [address] [place] [address] 07/20 CBC w/ auto diff MCHC g/dL 32.3 36.5 34.5 FINAL Marcelo Herms B&Whole Blood [facility] ([facility]), [address], [address] [place] [address] 07/20 CBC w/ auto diff RDW-C V, % % 11.6 14.4 12.5 FINAL Marcelo Herms B&Whole Blood [facility] ([facility]), [address], [address] [place] [address] 07/20 CBC w/ auto diff PLT 10*3/u L 163.0 337.0 160.0 Low FINAL Marcelo Herms B&Whole Blood [facility] ([facility]), [address], [address] [place] [address] 11/09 CBC w/ auto diff WBC 10*3/u [...] Blood 5 02/12 Lab Repor t See hat band attacher d 02/15 CBC w/ auto diff WBC 10*3/u L 4.2 9.1 8.8 FINAL Marcelo Olson B&Whole Blood [facility] ([facility]), [address], [address] [place] [address] 02/15 CBC w/ auto diff Cristobal # (ANC) 10*3/u L 1.78 5.38 4.12 FINAL Marcelo Mahmoods B&Whole Blood [facility] ([facility]), [address], [address] [facility] [place] [address] 02/15 CBC w/ auto diff LY # 10*3/u L 1.32 3.57 3.32 FINAL Marcelo Mahmoods B&Whole Blood [facility] ([facility]), [address], [address] [facility] [place] [address] 02/15 CBC w/ auto diff MO # 10*3/u L 0.3 0.82 0.96 High FINAL Marcelo Mahmoods B&Whole Blood [facility] ([facility]), [address], [address] [facility] [place] [address] 02/15 CBC w/ auto diff EO # 10*3/u lL 0.04 0.54 0.36 FINAL Marcelo Mahmoods B&Whole Blood [facility] ([facility]), [address], [address] [facility] [place] [address] 02/15 CBC w/ auto diff BA # 10*3/u L 0.01 0.08 0.04 FINAL Marcelo Mahmoods B&Whole Blood [facility] ([facility]), [address], [place] [facility] [place] [address] 02/15 CBC w/ auto diff Cristobal % % 34.0 67.9 46.8 FINAL Marcelo Mahmoods B&Whole Blood [facility] ([facility]), [address], [address] [facility] [place] [facility] 02/15 CBC w/ auto diff LY % % 21.8 53.1 37.7 FINAL Marcelo Mahmoods B&Whole Blood [facility] ([facility]), [address], [address] [facility] [place] [address] 02/15 CBC w/ auto diff MO % % 5.3 12.2 10.9 FINAL Marcelo Mahmoods B&Whole Blood [facility] ([facility]), [address], [place] [facility] [place] [address] 02/15 CBC w/ auto diff EO % % 0.8 7.0 4.1 FINAL Marcelo Mahmoods B&Whole Blood [facility] ([facility]), [address], [place] [facility] [place] [address] 02/15 CBC w/ auto diff BA % % 0.2 1.2 0.5 FINAL Marcelo Mahmoods B&Whole Blood [facility] ([facility]), [address], [address] [facility] [place] [address] 02/15 CBC w/ auto diff RBC 10*6/u L 4.63 6.08 5.33 FINAL Marcelo Olson B&Whole Blood [facility] ([facility]), [address], [address] [facility] [place] [facility] 02/15 CBC w/ auto diff HGB g/dL 13.7 17.5 17.4 FINAL Marcelo Olson B&Whole Blood [facility] ([facility]), [address], [address] [facility] [place] [facility] 02/15 CBC w/ auto diff HCT % 40.1 51.0 50.4 FINAL Marcelo Olson B&Whole Blood [facility] ([facility]), [address], [address] [place] [address] 02/15 CBC w/ auto diff MCV fL 79.0 92.2 94.6 High FINAL Marcelo Mahmoods B&Whole Blood [facility] ([facility]), [address], [address] [place] [address] 02/15 CBC w/ auto diff MCH pg 25.7 32.2 32.6 High FINAL Marcelo Olson B&Whole Blood [facility] ([facility]), [address], [address] [place] [address] 02/15 CBC w/ auto diff MCHC g/dL 32.3 36.5 34.5 FINAL Marcelo Olson B&Whole Blood [facility] ([facility]), [address], [address] [place] [address] 02/15 CBC w/ auto diff RDW-C V, % % 11.6 14.4 14.0 FINAL Marcelo Olson B&Whole Blood [facility] ([facility]), [address], [address] [facility] [place] [facility] 02/15 CBC w/ auto diff PLT 10*3/u L 163.0 337.0 172.0 FINAL Marcelo Mahmoods B&Whole Blood [facility] ([facility]), [address], [address] [facility] [place] [address] 05/31 CBC w/ auto diff WBC 10*3/u L 4.2 9.1 10.4 High FINAL Marcelo Mahmoods B&Whole Blood [facility] ([facility]), [address], [address] [facility] [place] [facility] 05/31 CBC w/ auto diff Cristobal # (ANC) 10*3/u L 1.78 5.38 5.26 FINAL Marcelo Olson B&Whole Blood [facility] (T), [address], [address] [place] [address] 05/31 CBC w/ auto diff LY # 10*3/u L 1.32 3.57 3.84 High FINAL Marcelo Olson B&Whole Blood [facility] (T), [address], [address] [place] [address] 05/31 CBC w/ auto diff MO # 10*3/u L 0.3 0.82 0.94 High FINAL Marcelo Olson B&Whole Blood [facility] (T), [address], [address] [place] [address] 05/31 CBC w/ auto diff EO # 10*3/u lL 0.04 0.54 0.30 FINAL Marcelo Olson B&Whole Blood [facility] (T), [address], [address] [place] [address] 05/31 CBC w/ auto diff BA # 10*3/u L 0.01 0.08 0.03 FINAL Marcelo Olson B&Whole Blood [facility] (T), [address], [address] [place] [address] 05/31 CBC w/ auto diff Cristobal % % 34.0 67.9 50.7 FINAL Marcelo Olson B&Whole Blood [facility] (T), [address], [address] [place] [address] 05/31 CBC w/ auto diff LY % % 21.8 53.1 37.0 FINAL Marcelo Olson B&Whole Blood [facility] (T), [address], [address] [place] [address] 05/31 CBC w/ auto diff MO % % 5.3 12.2 9.1 FINAL Marcelo Mahmoods B&Whole Blood [facility] (T), [address], [address] [place] [address] 05/31 CBC w/ auto diff EO % % 0.8 7.0 2.9 FINAL Marcelo Mahmoods B&Whole Blood [facility] ([facility]), [address], [address] [place] [address] 05/31 CBC w/ auto diff BA % % 0.2 1.2 0.3 FINAL Marcelo Mahmoods B&Whole Blood [facility] ([facility]), [address], [address] [place] [address] 05/31 CBC w/ auto diff RBC 10*6/u L 4.63 6.08 5.01 FINAL Marcelo Mahmoods B&Whole Blood [facility] ([facility]), [address], [address] [place] [address] 05/31 CBC w/ auto diff HGB g/dL 13.7 17.5 16.4 FINAL Marcelo Mahmoods B&Whole Blood [facility] ([facility]), [address], [address] [place] [address] 05/31 CBC w/ auto diff HCT % 40.1 51.0 47.5 FINAL Marcelo Mahmoods B&Whole Blood [facility] ([facility]), [address], [address] [place] [address] 05/31 CBC w/ auto diff MCV fL 79.0 92.2 94.8 High FINAL Marcelo Mahmoods B&Whole Blood [facility] ([facility]), [address], [address] [place] [address] 05/31 CBC w/ auto diff MCH pg 25.7 32.2 32.7 High FINAL [facility] B&Whole Blood [facility] ([facility]), [address], [address] [place] [address] 05/31 CBC w/ auto diff MCHC g/dL 32.3 36.5 34.5 FINAL Marcelo Mahmoods B&Whole Blood [facility] ([facility]), [address], [address] [place] [address] 05/31 CBC w/ auto diff RDW-C V, % % 11.6 14.4 13.8 FINAL Marcelo Mahmoods B&Whole Blood [facility] ([facility]), [address], [address] [place] [address] 05/31 CBC w/ auto diff PLT 10*3/u L 163.0 337.0 161.0 Low FINAL Marcelo Mahmoods B&Whole Blood [facility] ([facility]), [address], [address] [place] [address] 06/21 CBC w/ auto diff WBC 10*3/u L 4.2 9.1 14.1 High FINAL Marcelo [facility] ([facility]), [address], [address] [place] [address] 06/21 CBC w/ auto diff Cristobal # (ANC) 10*3/u L 1.78 5.38 10.63 High FINAL Marcelo [facility] ([facility]), [address], [address] [place] [address] 06/21 CBC w/ auto diff LY # 10*3/u L 1.32 3.57 2.09 FINAL Marcelo [facility] ([facility]), [address], [address] [place] [address] 06/21 CBC w/ auto diff MO # 10*3/u L 0.3 0.82 1.34 High FINAL Marcelo [facility] ([facility]), [address], [address] [place] [address] 06/21 CBC w/ auto diff EO # 10*3/u lL 0.04 0.54 0.03 Low FINAL Marcelo [facility] ([facility]), [address], [address] [place] [address] 06/21 CBC w/ auto diff BA # 10*3/u L 0.01 0.08 0.02 FINAL Marcelo [facility] ([facility]), [address], [address] [place] [address] 06/21 CBC w/ auto diff Cristobal % % 34.0 67.9 75.4 High FINAL Marcelo [facility] ([facility]), [address], [address] [place] [address] 06/21 CBC w/ auto diff LY % % 21.8 53.1 14.8 Low FINAL Marcelo [facility] ([facility]), [address], [address] [place] [address] 06/21 CBC w/ auto diff MO % % 5.3 12.2 9.5 FINAL Marcelo [facility] ([facility]), [address], [address] [place] [address] 06/21 CBC w/ auto diff EO % % 0.8 7.0 0.2 Low FINAL [facility] ([facility]), [address], [address] [place] [address] 06/21 CBC w/ auto diff BA % % 0.2 1.2 0.1 Low FINAL [facility] ([facility]), [address], [address] [place] [address] 06/21 CBC w/ auto diff RBC 10*6/u L 4.63 6.08 4.90 FINAL [facility] ([facility]), [address], [address] [place] [address] 06/21 CBC w/ auto diff HGB g/dL 13.7 17.5 16.0 FINAL [facility] ([facility]), [address], [address] [place] [address] 06/21 CBC w/ auto diff HCT % 40.1 51.0 47.5 FINAL [facility] ([facility]), [address], [address] [place] [address] 06/21 CBC w/ auto diff MCV fL 79.0 92.2 96.9 High FINAL [facility] ([facility]), [address], [address] [place] [address] 06/21 CBC w/ auto diff MCH pg 25.7 32.2 32.7 High FINAL [facility] ([facility]), [address], [address] [place] [address] 06/21 CBC w/ auto diff MCHC g/dL 32.3 36.5 33.7 FINAL [facility] ([facility]), [address], [address] [place] [address] 06/21 CBC w/ auto diff RDW-C V, % % 11.6 14.4 14.0 FINAL [facility] ([facility]), [address], [address] [place] [address] 06/21 CBC w/ auto diff PLT 10*3/u L 163.0 337.0 185.0 FINAL Marcelo Olson [facility] Jennifer ([facility]), [address], [address] [facility] [address] 07/23 Lab Repor t See hat band attacher d Medications Date Name Route Dose [...] Oral orally 5000.0 mcg daily active 12/22 [place] 3-DHA-E PA-Fish Oil Oral Liquid 1,600 mg-500 [...] Print Location: Unknown Date/Time Printed: 10/19/2025 17:07 ([facility]) Patient: VALERIE PUENTES Sex: Male : [...] Selected Billing Code(s): PHLEBOTOMY THERAPEUTIC SEPARATE PROCEDURE (67757) Entered By Barbara Casas RN; Incident to Marcelo Olson MD * Nurse Note for: 09-NOV-19 [facility] Nurse Note Print Location: Unknown Date/Time Printed: 10/19/2025 17:07 ([facility]) Patient: VALERIE PUENTES Sex: Male : [...] Selected Billing Code(s): PHLEBOTOMY THERAPEUTIC SEPARATE PROCEDURE (61232) Entered By Ju Gupta RN; Incident to Marcelo Olson MD * Nurse Note for: 20-JUL-19 [facility] Nurse Note Print Location: Unknown Date/Time Printed: 10/19/2025 17:07 ([facility]) Patient: VALERIE PUENTES Sex: Male : [...] Selected Billing Code(s): PHLEBOTOMY THERAPEUTIC SEPARATE PROCEDURE (01695) Entered By Barbara Garcia RN; Incident to Marcelo Olson MD
--- OUTSIDE RECORDS SUMMARY | 2025-10-19 17:09 | XMS_ITS ---
Author Name Interface, [id number] lity Address [address] [place] [address] Organization [facility] Address [address] [place] [address] Allergies and Adverse Reactions Medication/Group Name Reaction [...] Olson B&Whole Blood [facility] ([facility]), [address], [address] [place] [address] 02/15 CBC w/ auto diff Cristobal # (ANC) 10*3/u L 1.78 5.38 4.12 FINAL Marcelo Olson B&Whole Blood [facility] ([facility]), [address], [address] [place] [address] 02/15 CBC w/ auto diff LY # 10*3/u L 1.32 3.57 3.32 FINAL Marcelo Olson B&Whole Blood [facility] ([facility]), [address], [address] [place] [address] 02/15 CBC w/ auto diff MO # 10*3/u L 0.3 0.82 0.96 High FINAL Marcelo Olson B&Whole Blood [facility] ([facility]), [address], [address] [place] [address] 02/15 CBC w/ auto diff EO # 10*3/u lL 0.04 0.54 0.36 FINAL Marcelo Olson B&Whole Blood [facility] ([facility]), [address], [address] [place] [address] 02/15 CBC w/ auto diff BA # 10*3/u L 0.01 0.08 0.04 FINAL Marcelo Olson B&Whole Blood [facility] ([facility]), [address], [address] [place] [address] 02/15 CBC w/ auto diff Cristobal % % 34.0 67.9 46.8 FINAL Marcelo Olson B&Whole Blood [facility] ([facility]), [address], [address] [place] [address] 02/15 CBC w/ auto diff LY % % 21.8 53.1 37.7 FINAL Marcelo Mahmoods B&Whole Blood [facility] ([facility]), [address], [place] [facility] [place] [address] 02/15 CBC w/ auto diff MO % % 5.3 12.2 10.9 FINAL Marcelo Mahmoods B&Whole Blood [facility] ([facility]), [address], [place] [facility] [place] [address] 02/15 CBC w/ auto diff EO % % 0.8 7.0 4.1 FINAL Marcelo Olson B&Whole Blood [facility] ([facility]), [address], Suite [facility] [place] [facility] 02/15 CBC w/ auto diff BA % % 0.2 1.2 0.5 FINAL Marcelo Mahmoods B&Whole Blood [facility] ([facility]), [address], Suite [facility] [place] [facility], [facility] 02/15 CBC w/ auto diff RBC 10*6/u L 4.63 6.08 5.33 FINAL Marcelo Mahmoods B&Whole Blood [facility] ([facility]), [address], Suite [facility] [place] [facility] 02/15 CBC w/ auto diff HGB g/dL 13.7 17.5 17.4 FINAL Marcelo Olson B&Whole Blood [facility] ([facility]), [address], Suite [facility] [place] [facility] 02/15 CBC w/ auto diff HCT % 40.1 51.0 50.4 FINAL Marcelo Mahmoods B&Whole Blood [facility] ([facility]), [address], Suite [facility] [place] [facility] 02/15 CBC w/ auto diff MCV fL 79.0 92.2 94.6 High FINAL Marcelo Mahmoods B&Whole Blood [facility] ([facility]), [address], [place] [facility] [place] [address] 02/15 CBC w/ auto diff MCH pg 25.7 32.2 32.6 High FINAL Marcelo Mahmoods B&Whole Blood [facility] ([facility]), [address], [place] [facility] [place] [address] 02/15 CBC w/ auto diff MCHC g/dL 32.3 36.5 34.5 FINAL Marcelo Mahmoods B&Whole Blood [facility] ([facility]), [address], [address] [place] [address] 02/15 CBC w/ auto diff RDW-C V, % % 11.6 14.4 14.0 FINAL Marcelo Mahmoods B&Whole Blood [facility] ([facility]), [address], [address] [place] [address] 02/15 CBC w/ auto diff PLT 10*3/u L 163.0 337.0 172.0 FINAL Marcelo Mahmoods B&Whole Blood [facility] ([facility]), [address], [address] [place] [address] 05/31 CBC w/ auto diff WBC 10*3/u L 4.2 9.1 10.4 High FINAL Marcelo Mahmoods B&Whole Blood [facility] ([facility]), [address], [address] [place] [address] 05/31 CBC w/ auto diff Cristobal # (ANC) 10*3/u L 1.78 5.38 5.26 FINAL Marcelo Mahmoods B&Whole Blood [facility] ([facility]), [address], [address] [place] [address] 05/31 CBC w/ auto diff LY # 10*3/u L 1.32 3.57 3.84 High FINAL Marcelo Mahmoods B&Whole Blood [facility] ([facility]), [address], [address] [place] [address] 05/31 CBC w/ auto diff MO # 10*3/u L 0.3 0.82 0.94 High FINAL Marcelo Mahmoods B&Whole Blood [facility] ([facility]), [address], [address] [place] [address] 05/31 CBC w/ auto diff EO # 10*3/u lL 0.04 0.54 0.30 FINAL Marcelo Mahmoods B&Whole Blood [facility] ([facility]), [address], [address] [place] [address] 05/31 CBC w/ auto diff BA # 10*3/u L 0.01 0.08 0.03 FINAL Marcelo Herms B&Whole Blood [facility] ([facility]), [address], [address] [place] [address] 05/31 CBC w/ auto diff Cristobal % % 34.0 67.9 50.7 FINAL Marcelo Herms B&Whole Blood [facility] ([facility]), [address], Suite [facility] [place] [facility] 05/31 CBC w/ auto diff LY % % 21.8 53.1 37.0 FINAL Marcelo Olson B&Whole Blood [facility] ([facility]), [address], [address] [place] [address] 05/31 CBC w/ auto diff MO % % 5.3 12.2 9.1 FINAL Marcelo Olson B&Whole Blood [facility] ([facility]), [address], [address] [place] [address] 05/31 CBC w/ auto diff EO % % 0.8 7.0 2.9 FINAL Marcelo Olson B&Whole Blood [facility] ([facility]), [address], [address] [place] [address] 05/31 CBC w/ auto diff BA % % 0.2 1.2 0.3 FINAL Marcelo Olson B&Whole Blood [facility] ([facility]), [address], [address] [place] [address] 05/31 CBC w/ auto diff RBC 10*6/u L 4.63 6.08 5.01 FINAL Marcelo Olson B&Whole Blood [facility] ([facility]), [address], [address] [place] [address] 05/31 CBC w/ auto diff HGB g/dL 13.7 17.5 16.4 FINAL Marcelo Olson B&Whole Blood [facility] ([facility]), [address], [address] [place] [address] 05/31 CBC w/ auto diff HCT % 40.1 51.0 47.5 FINAL Marcelo Olson B&Whole Blood [facility] ([facility]), [address], [address] [place] [address] 05/31 CBC w/ auto diff MCV fL 79.0 92.2 94.8 High FINAL Marcelo Olson B&Whole Blood [facility] ([facility]), [address], [address] [place] [address] 05/31 CBC w/ auto diff MCH pg 25.7 32.2 32.7 High FINAL Marcelo Olson B&Whole Blood [facility] ([facility]), [address], [address] [place] [address] 05/31 CBC w/ auto diff MCHC g/dL 32.3 36.5 34.5 FINAL Marcelo [facility] B&Whole Blood [facility] ([facility]), [address], [address] [place] [address] 05/31 CBC w/ auto diff RDW-C V, % % 11.6 14.4 13.8 FINAL Marcelo [facility] B&Whole Blood [facility] ([facility]), [address], [address] [place] [address] 05/31 CBC w/ auto diff PLT 10*3/u L 163.0 337.0 161.0 Low FINAL [facility] B&Whole Blood [facility] ([facility]), [address], [address] [place] [address] 06/21 CBC w/ auto diff WBC 10*3/u L 4.2 9.1 14.1 High FINAL [facility] (T), [address], [address] [place] [address] 06/21 CBC w/ auto diff Cristobal # (ANC) 10*3/u L 1.78 5.38 10.63 High FINAL [facility] ([facility]), [address], [address] [place] [address] 06/21 CBC w/ auto diff LY # 10*3/u L 1.32 3.57 2.09 FINAL [facility] ([facility]), [address], [address] [place], [place] [id number] 06/21 CBC w/ auto diff MO # 10*3/u L 0.3 0.82 1.34 High FINAL [facility] ([facility]), [address], [address] [place], [place] [id number] 06/21 CBC w/ auto diff EO # 10*3/u lL 0.04 0.54 0.03 Low FINAL [facility] ([facility]), [address], [address] [facility] [address] 06/21 CBC w/ auto diff BA # 10*3/u L 0.01 0.08 0.02 FINAL [facility] ([facility]), [address], [address] [place] [address] 06/21 CBC w/ auto diff Cristobal % % 34.0 67.9 75.4 High FINAL Marcelo [facility] ([facility]), [address], [address] [place] [address] 06/21 CBC w/ auto diff LY % % 21.8 53.1 14.8 Low FINAL Marcelo [facility] ([facility]), [address], [address] [place] [address] 06/21 CBC w/ auto diff MO % % 5.3 12.2 9.5 FINAL Marcelo [facility] ([facility]), [address], [address] [place] [address] 06/21 CBC w/ auto diff EO % % 0.8 7.0 0.2 Low FINAL Marcelo [facility] ([facility]), [address], [address] [place] [address] 06/21 CBC w/ auto diff BA % % 0.2 1.2 0.1 Low FINAL Marcelo [facility] ([facility]), [address], [address] [place] [address] 06/21 CBC w/ auto diff RBC 10*6/u L 4.63 6.08 4.90 FINAL Marcelo [facility] ([facility]), [address], [address] [place] [address] 06/21 CBC w/ auto diff HGB g/dL 13.7 17.5 16.0 FINAL Marcelo [facility] ([facility]), [address], [address] [place] [address] 06/21 CBC w/ auto diff HCT % 40.1 51.0 47.5 FINAL Marcelo [facility] ([facility]), [address], [address] [place] [address] 06/21 CBC w/ auto diff MCV fL 79.0 92.2 96.9 High FINAL Marcelo [facility] ([facility]), [address], [address] [place] [address] 06/21 CBC w/ auto diff MCH pg 25.7 32.2 32.7 High FINAL [facility] ([facility]), [address], [address] [facility] [address] 06/21 CBC w/ auto diff MCHC g/dL 32.3 36.5 33.7 FINAL [facility] (T), [address], [address] [facility] [address] 06/21 CBC w/ auto diff RDW-C V, % % 11.6 14.4 14.0 FINAL [facility] (T), [address], [address] [facility] [address] 06/21 CBC w/ auto diff PLT 10*3/u L 163.0 337.0 185.0 FINAL [facility] ([facility]), [address], [address] [facility] [address] 07/23 Lab Repor t See commercial specialist d Medications Date Name Route Dose [...] Oral orally 5000.0 mcg daily active 12/22 [place] 3-DHA-E PA-Fish Oil Oral Liquid 1,600 mg-500 [...] Print Location: Unknown Date/Time Printed: 10/19/2025 17:08 ([facility]) Patient: VALERIE PUENTES Sex: Male : [...] Selected Billing Code(s): PHLEBOTOMY THERAPEUTIC SEPARATE PROCEDURE (57179) Entered By Barbara Casas RN; Incident to Marcelo Olson MD
--- OUTSIDE RECORDS SUMMARY | 2025-10-19 17:09 | XMS_ITS ---
Author Name Interface, [id number] lity Address [address] [place] [address] Organization [facility] Address [address] [place] [address] Allergies and Adverse Reactions Medication/Group Name Reaction [...] 14.1 High FINAL Marcelo [facility] ([facility]), [address], [address] [facility] [address] 06/21 CBC w/ auto diff Cristobal # (ANC) 10*3/u L 1.78 5.38 10.63 High FINAL Marcelo [facility] ([facility]), [address], [address] [facility] [address] 06/21 CBC w/ auto diff LY # 10*3/u L 1.32 3.57 2.09 FINAL [facility] ([facility]), [address], [address] [facility] [address] 06/21 CBC w/ auto diff MO # 10*3/u L 0.3 0.82 1.34 High FINAL Marcelo [facility] ([facility]), [address], [address] [place] [address] 06/21 CBC w/ auto diff EO # 10*3/u lL 0.04 0.54 0.03 Low FINAL Marcelo [facility] ([facility]), [address], [address] [place] [address] 06/21 CBC w/ auto diff BA # 10*3/u L 0.01 0.08 0.02 FINAL Marcelo [facility] ([facility]), [address], [address] [place] [address] 06/21 CBC w/ auto diff Cristobal % % 34.0 67.9 75.4 High FINAL Marcelo [facility] ([facility]), [address], [address] [place] [address] 06/21 CBC w/ auto diff LY % % 21.8 53.1 14.8 Low FINAL Marcelo [facility] ([facility]), [address], [address] [place] [address] 06/21 CBC w/ auto diff MO % % 5.3 12.2 9.5 FINAL Marcelo [facility] ([facility]), [address], [address] [place] [address] 06/21 CBC w/ auto diff EO % % 0.8 7.0 0.2 Low FINAL Marcelo [facility] ([facility]), [address], [address] [place] [address] 06/21 CBC w/ auto diff BA % % 0.2 1.2 0.1 Low FINAL Marcelo [facility] ([facility]), [address], [address] [place] [address] 06/21 CBC w/ auto diff RBC 10*6/u L 4.63 6.08 4.90 FINAL Marcelo [facility] ([facility]), [address], [address] [place] [address] 06/21 CBC w/ auto diff HGB g/dL 13.7 17.5 16.0 FINAL [facility] ([facility]), [address], [address] [place] [address] 06/21 CBC w/ auto diff HCT % 40.1 51.0 47.5 FINAL [facility] ([facility]), [address], [address] [place] [address] 06/21 CBC w/ auto diff MCV fL 79.0 92.2 96.9 High FINAL [facility] ([facility]), [address], [address] [place], [place] [address] 06/21 CBC w/ auto diff MCH pg 25.7 32.2 32.7 High FINAL [facility] ([facility]), [address], [address] [place] [address] 06/21 CBC w/ auto diff MCHC g/dL 32.3 36.5 33.7 FINAL [facility] ([facility]), [address], [address] [facility] [address] 06/21 CBC w/ auto diff RDW-C V, % % 11.6 14.4 14.0 FINAL [facility] ([facility]), [address], [address] [facility] [address] 06/21 CBC w/ auto diff PLT 10*3/u L 163.0 337.0 185.0 FINAL [facility] ([facility]), [address], [address] [place], [place] [address] 07/23 Lab Repor t See zigzag elastic attacher d Medications Date Name Route [...] Oral orally 5000.0 mcg daily active 12/22 [place] 3-DHA-E PA-Fish Oil Oral Liquid 1,600 mg-500 [...]
--- OUTSIDE RECORDS SUMMARY | 2025-10-19 17:09 | XMS_ITS ---
Author Name Interface, [id number] lity Address [address] [place] [address] Organization [facility] Address [address] [place] [address] Allergies and Adverse Reactions Medication/Group Name Reaction [...] 9.1 8.8 FINAL Marcelo Olson B&Whole Blood [facility] ([facility]), [address], [address] [place] [address] 02/15 CBC w/ auto diff Cristobal # (ANC) 10*3/u L 1.78 5.38 4.12 FINAL Marcelo Olson B&Whole Blood [facility] ([facility]), [address], [address] [place] [address] 02/15 CBC w/ auto diff LY # 10*3/u L 1.32 3.57 3.32 FINAL Marcelo Olson B&Whole Blood [facility] ([facility]), [address], [address] [place] [address] 02/15 CBC w/ auto diff MO # 10*3/u L 0.3 0.82 0.96 High FINAL Marcelo Olson B&Whole Blood [facility] ([facility]), [address], [address] [place] [address] 02/15 CBC w/ auto diff EO # 10*3/u lL 0.04 0.54 0.36 FINAL Marcelo Olson B&Whole Blood [facility] ([facility]), [address], [address] [place] [address] 02/15 CBC w/ auto diff BA # 10*3/u L 0.01 0.08 0.04 FINAL Marcelo Olson B&Whole Blood [facility] ([facility]), [address], [address] [place] [address] 02/15 CBC w/ auto diff Cristobal % % 34.0 67.9 46.8 FINAL Marcelo Olson B&Whole Blood [facility] ([facility]), [address], [address] [place] [address] 02/15 CBC w/ auto diff LY % % 21.8 53.1 37.7 FINAL Marcelo Mahmoods B&Whole Blood [facility] ([facility]), [address], [place] [facility] [place] [address] 02/15 CBC w/ auto diff MO % % 5.3 12.2 10.9 FINAL Marcelo Mahmoods B&Whole Blood [facility] ([facility]), [address], [place] [facility] [place] [address] 02/15 CBC w/ auto diff EO % % 0.8 7.0 4.1 FINAL Marcelo Olson B&Whole Blood [facility] ([facility]), [address], [address] [facility] [place] [facility] 02/15 CBC w/ auto diff BA % % 0.2 1.2 0.5 FINAL Marcelo Mahmoods B&Whole Blood [facility] ([facility]), [address], [address] [facility] [place] [facility] 02/15 CBC w/ auto diff RBC 10*6/u L 4.63 6.08 5.33 FINAL Marcelo Mahmoods B&Whole Blood [facility] ([facility]), [address], [address] [facility] [place] [facility] 02/15 CBC w/ auto diff HGB g/dL 13.7 17.5 17.4 FINAL Marcelo Olson B&Whole Blood [facility] (T), [address], [address] [facility] [place] [facility] 02/15 CBC w/ auto diff HCT % 40.1 51.0 50.4 FINAL Marcelo Mahmoods B&Whole Blood [facility] ([facility]), [address], [address] [facility] [place] [facility] 02/15 CBC w/ auto diff MCV fL 79.0 92.2 94.6 High FINAL Marcelo Mahmoods B&Whole Blood [facility] ([facility]), [address], [place] [facility] [place] [address] 02/15 CBC w/ auto diff MCH pg 25.7 32.2 32.6 High FINAL Marcelo Mahmoods B&Whole Blood [facility] ([facility]), [address], [place] [facility] [place] [address] 02/15 CBC w/ auto diff MCHC g/dL 32.3 36.5 34.5 FINAL Marcelo Mahmoods B&Whole Blood [facility] ([facility]), [address], [address] [place] [address] 02/15 CBC w/ auto diff RDW-C V, % % 11.6 14.4 14.0 FINAL Marcelo Mahmoods B&Whole Blood [facility] ([facility]), [address], [address] [place] [address] 02/15 CBC w/ auto diff PLT 10*3/u L 163.0 337.0 172.0 FINAL Marcelo Mahmoods B&Whole Blood [facility] ([facility]), [address], [address] [place] [address] 05/31 CBC w/ auto diff WBC 10*3/u L 4.2 9.1 10.4 High FINAL Marcelo Mahmoods B&Whole Blood [facility] ([facility]), [address], [address] [place] [address] 05/31 CBC w/ auto diff Cristobal # (ANC) 10*3/u L 1.78 5.38 5.26 FINAL Marcelo Mahmoods B&Whole Blood [facility] ([facility]), [address], [address] [place] [address] 05/31 CBC w/ auto diff LY # 10*3/u L 1.32 3.57 3.84 High FINAL Marcelo Mahmoods B&Whole Blood [facility] ([facility]), [address], [address] [place] [address] 05/31 CBC w/ auto diff MO # 10*3/u L 0.3 0.82 0.94 High FINAL Marcelo Mahmoods B&Whole Blood [facility] ([facility]), [address], [address] [place] [address] 05/31 CBC w/ auto diff EO # 10*3/u lL 0.04 0.54 0.30 FINAL Marcelo Mahmoods B&Whole Blood [facility] ([facility]), [address], [address] [place] [address] 05/31 CBC w/ auto diff BA # 10*3/u L 0.01 0.08 0.03 FINAL Marcelo Herms B&Whole Blood [facility] ([facility]), [address], [address] [place] [address] 05/31 CBC w/ auto diff Cristobal % % 34.0 67.9 50.7 FINAL Marcelo Herms B&Whole Blood [facility] (T), [address], [address] [facility] [place] [facility] 05/31 CBC w/ auto diff LY % % 21.8 53.1 37.0 FINAL Marcelo Olson B&Whole Blood [facility] ([facility]), [address], [address] [place] [address] 05/31 CBC w/ auto diff MO % % 5.3 12.2 9.1 FINAL Marcelo Olson B&Whole Blood [facility] ([facility]), [address], [address] [place] [address] 05/31 CBC w/ auto diff EO % % 0.8 7.0 2.9 FINAL Marcelo Olson B&Whole Blood [facility] ([facility]), [address], [address] [place] [address] 05/31 CBC w/ auto diff BA % % 0.2 1.2 0.3 FINAL Marcelo Olson B&Whole Blood [facility] ([facility]), [address], [address] [place] [address] 05/31 CBC w/ auto diff RBC 10*6/u L 4.63 6.08 5.01 FINAL Marcelo Olson B&Whole Blood [facility] ([facility]), [address], [address] [place] [address] 05/31 CBC w/ auto diff HGB g/dL 13.7 17.5 16.4 FINAL Marcelo Olson B&Whole Blood [facility] ([facility]), [address], [address] [place] [address] 05/31 CBC w/ auto diff HCT % 40.1 51.0 47.5 FINAL Marcelo Olson B&Whole Blood [facility] ([facility]), [address], [address] [place] [address] 05/31 CBC w/ auto diff MCV fL 79.0 92.2 94.8 High FINAL Marcelo Olson B&Whole Blood [facility] ([facility]), [address], [address] [place] [address] 05/31 CBC w/ auto diff MCH pg 25.7 32.2 32.7 High FINAL Marcelo Olson B&Whole Blood [facility] ([facility]), [address], [address] [place] [address] 05/31 CBC w/ auto diff MCHC g/dL 32.3 36.5 34.5 FINAL Marcelo [facility] B&Whole Blood [facility] ([facility]), [address], [address] [place] [address] 05/31 CBC w/ auto diff RDW-C V, % % 11.6 14.4 13.8 FINAL Marcelo [facility] B&Whole Blood [facility] ([facility]), [address], [address] [place] [address] 05/31 CBC w/ auto diff PLT 10*3/u L 163.0 337.0 161.0 Low FINAL [facility] B&Whole Blood [facility] ([facility]), [address], [address] [place] [address] 06/21 CBC w/ auto diff WBC 10*3/u L 4.2 9.1 14.1 High FINAL [facility] (T), [address], [address] [place] [address] 06/21 CBC w/ auto diff Cristobal # (ANC) 10*3/u L 1.78 5.38 10.63 High FINAL [facility] (T), [address], [address] [place] [address] 06/21 CBC w/ auto diff LY # 10*3/u L 1.32 3.57 2.09 FINAL [facility] ([facility]), [address], [address] [place], [place] [id number] 06/21 CBC w/ auto diff MO # 10*3/u L 0.3 0.82 1.34 High FINAL [facility] ([facility]), [address], [address] [place], [place] [id number] 06/21 CBC w/ auto diff EO # 10*3/u lL 0.04 0.54 0.03 Low FINAL [facility] ([facility]), [address], [address] [facility] [address] 06/21 CBC w/ auto diff BA # 10*3/u L 0.01 0.08 0.02 FINAL [facility] ([facility]), [address], [address] [place] [address] 06/21 CBC w/ auto diff Cristobal % % 34.0 67.9 75.4 High FINAL Marcelo [facility] ([facility]), [address], [address] [place] [address] 06/21 CBC w/ auto diff LY % % 21.8 53.1 14.8 Low FINAL Marcelo [facility] ([facility]), [address], [address] [place] [address] 06/21 CBC w/ auto diff MO % % 5.3 12.2 9.5 FINAL Marcelo [facility] ([facility]), [address], [address] [place] [address] 06/21 CBC w/ auto diff EO % % 0.8 7.0 0.2 Low FINAL Marcelo [facility] ([facility]), [address], [address] [place] [address] 06/21 CBC w/ auto diff BA % % 0.2 1.2 0.1 Low FINAL Marcelo [facility] ([facility]), [address], [address] [place] [address] 06/21 CBC w/ auto diff RBC 10*6/u L 4.63 6.08 4.90 FINAL Marcelo [facility] ([facility]), [address], [address] [place] [address] 06/21 CBC w/ auto diff HGB g/dL 13.7 17.5 16.0 FINAL Marcelo [facility] ([facility]), [address], [address] [place] [address] 06/21 CBC w/ auto diff HCT % 40.1 51.0 47.5 FINAL Marcelo [facility] ([facility]), [address], [address] [place] [address] 06/21 CBC w/ auto diff MCV fL 79.0 92.2 96.9 High FINAL Marcelo [facility] ([facility]), [address], [address] [place] [address] 06/21 CBC w/ auto diff MCH pg 25.7 32.2 32.7 High FINAL [facility] ([facility]), [address], [address] [facility] [address] 06/21 CBC w/ auto diff MCHC g/dL 32.3 36.5 33.7 FINAL [facility] (T), [address], [address] [facility] [address] 06/21 CBC w/ auto diff RDW-C V, % % 11.6 14.4 14.0 FINAL [facility] (T), [address], [address] [facility] [address] 06/21 CBC w/ auto diff PLT 10*3/u L 163.0 337.0 185.0 FINAL [facility] ([facility]), [address], [address] [facility] [address] 07/23 Lab Repor t See hair stylist d Medications Date Name Route Dose Frequency [...] orally 5000.0 mcg daily active 12/22 [place] 3-DHA-E PA-Fish Oil Oral Liquid 1,600 mg-500 [...] Note Print Location: Unknown Date/Time Printed: 10/19/2025 17:09 ([facility]) Patient: VALERIE PUENTES Sex: Male [...] Selected Billing Code(s): PHLEBOTOMY THERAPEUTIC SEPARATE PROCEDURE (88323) Entered By Barbara Casas RN; Incident to Marcelo Olson MD
--- OUTSIDE RECORDS SUMMARY | 2025-10-19 17:09 | XMS_ITS ---
Author Name Interface, [id number] lity Address [address] [place] [address] Organization [facility] Address [address] [place] [address] Allergies and Adverse Reactions Medication/Group Name Reaction [...] Marcelo Olson B&Whole Blood [facility] ([facility]), [address], [address] [place] [address] 07/20 CBC w/ auto diff Cristobal # (ANC) 10*3/u L 1.78 5.38 4.47 FINAL Marcelo Olson B&Whole Blood [facility] ([facility]), [address], [address] [facility] [place] [facility] 07/20 CBC w/ auto diff LY # 10*3/u L 1.32 3.57 3.40 FINAL Marcelo Olson B&Whole Blood [facility] ([facility]), [address], [address] [place], [place] [id number] 07/20 CBC w/ auto diff MO # 10*3/u L 0.3 0.82 0.80 FINAL Marcelo Olson B&Whole Blood [facility] ([facility]), [address], [place] [facility] [place] [address] 07/20 CBC w/ auto diff EO # 10*3/u lL 0.04 0.54 0.38 FINAL Marcelo Olson B&Whole Blood [facility] ([facility]), [address], [place] [facility] [place] [address] 07/20 CBC w/ auto diff BA # 10*3/u L 0.01 0.08 0.03 FINAL Marcelo Funez&Whole Blood [facility] ([facility]), [address], [address] [place] [address] 07/20 CBC w/ auto diff Cristobal % % 34.0 67.9 49.3 FINAL Marcelo Herms B&Whole Blood [facility] ([facility]), [address], [address] [place] [address] 07/20 CBC w/ auto diff LY % % 21.8 53.1 37.4 FINAL Marcelo Herms B&Whole Blood [facility] (T), [address], [address] [place] [address] 07/20 CBC w/ auto diff MO % % 5.3 12.2 8.8 FINAL Marcelo Herms B&Whole Blood [facility] (T), [address], [address] [place] [address] 07/20 CBC w/ auto diff EO % % 0.8 7.0 4.2 FINAL Marcelo Herms B&Whole Blood [facility] ([facility]), [address], [address] [place] [address] 07/20 CBC w/ auto diff BA % % 0.2 1.2 0.3 FINAL Marcelo Herms B&Whole Blood [facility] ([facility]), [address], [address] [place] [address] 07/20 CBC w/ auto diff RBC 10*6/u L 4.63 6.08 5.60 FINAL Marcelo Herms B&Whole Blood [facility] ([facility]), [address], [address] [place] [address] 07/20 CBC w/ auto diff HGB g/dL 13.7 17.5 18.2 High FINAL Marcelo Herms B&Whole Blood [facility] ([facility]), [address], [address] [place] [address] 07/20 CBC w/ auto diff HCT % 40.1 51.0 52.8 High FINAL Marcelo Herms B&Whole Blood [facility] ([facility]), [address], [address] [place] [address] 07/20 CBC w/ auto diff MCV fL 79.0 92.2 94.3 High FINAL Marcelo Herms B&Whole Blood [facility] ([facility]), [address], [address] [place] [address] 07/20 CBC w/ auto diff MCH pg 25.7 32.2 32.5 High FINAL Marcelo Herms B&Whole Blood [facility] ([facility]), [address], [address] [place] [address] 07/20 CBC w/ auto diff MCHC g/dL 32.3 36.5 34.5 FINAL Marcelo Herms B&Whole Blood [facility] ([facility]), [address], [address] [place] [address] 07/20 CBC w/ auto diff RDW-C V, % % 11.6 14.4 12.5 FINAL Marcelo Herms B&Whole Blood [facility] ([facility]), [address], [address] [place] [address] 07/20 CBC w/ auto diff PLT 10*3/u L 163.0 337.0 160.0 Low FINAL Marcelo Herms B&Whole Blood [facility] ([facility]), [address], [address] [place] [address] 11/09 CBC w/ auto diff WBC 10*3/u [...] Blood 5 02/12 Lab Repor t See top distribution executive d 02/15 CBC w/ auto diff WBC 10*3/u L 4.2 9.1 8.8 FINAL Marcelo Olson B&Whole Blood [facility] ([facility]), [address], [address] [place] [address] 02/15 CBC w/ auto diff Cristobal # (ANC) 10*3/u L 1.78 5.38 4.12 FINAL Marcelo Mahmoods B&Whole Blood [facility] ([facility]), [address], [place] [facility] [place] [address] 02/15 CBC w/ auto diff LY # 10*3/u L 1.32 3.57 3.32 FINAL Marcelo Mahmoods B&Whole Blood [facility] ([facility]), [address], [place] [facility] [place] [address] 02/15 CBC w/ auto diff MO # 10*3/u L 0.3 0.82 0.96 High FINAL Marcelo Mahmoods B&Whole Blood [facility] ([facility]), [address], [place] [facility] [place] [address] 02/15 CBC w/ auto diff EO # 10*3/u lL 0.04 0.54 0.36 FINAL Marcelo Mahmoods B&Whole Blood [facility] ([facility]), [address], [place] [facility] [place] [address] 02/15 CBC w/ auto diff BA # 10*3/u L 0.01 0.08 0.04 FINAL Marcelo Mahmoods B&Whole Blood [facility] ([facility]), [address], [place] [facility] [place] [address] 02/15 CBC w/ auto diff Cristobal % % 34.0 67.9 46.8 FINAL Marcelo Mahmoods B&Whole Blood [facility] ([facility]), [address], [address] [facility] [place] [facility] 02/15 CBC w/ auto diff LY % % 21.8 53.1 37.7 FINAL Marcelo Mahmoods B&Whole Blood [facility] ([facility]), [address], [place] [facility] [place] [address] 02/15 CBC w/ auto diff MO % % 5.3 12.2 10.9 FINAL Marcelo Mahmoods B&Whole Blood [facility] ([facility]), [address], [place] [facility] [place] [address] 02/15 CBC w/ auto diff EO % % 0.8 7.0 4.1 FINAL Marcelo Mahmoods B&Whole Blood [facility] ([facility]), [address], [place] [facility] [place] [address] 02/15 CBC w/ auto diff BA % % 0.2 1.2 0.5 FINAL Marcelo Mahmoods B&Whole Blood [facility] ([facility]), [address], [place] [facility] [place] [address] 02/15 CBC w/ auto diff RBC 10*6/u L 4.63 6.08 5.33 FINAL Marcelo Olson B&Whole Blood [facility] ([facility]), [address], [address] [facility] [place] [facility] 02/15 CBC w/ auto diff HGB g/dL 13.7 17.5 17.4 FINAL Marcelo Olson B&Whole Blood [facility] ([facility]), [address], [address] [facility] [place] [facility] 02/15 CBC w/ auto diff HCT % 40.1 51.0 50.4 FINAL Marcelo Olson B&Whole Blood [facility] ([facility]), [address], [address] [place] [address] 02/15 CBC w/ auto diff MCV fL 79.0 92.2 94.6 High FINAL Marcelo Mahmoods B&Whole Blood [facility] ([facility]), [address], [address] [place] [address] 02/15 CBC w/ auto diff MCH pg 25.7 32.2 32.6 High FINAL Marcelo Olson B&Whole Blood [facility] ([facility]), [address], [address] [place] [address] 02/15 CBC w/ auto diff MCHC g/dL 32.3 36.5 34.5 FINAL Marcelo Olson B&Whole Blood [facility] ([facility]), [address], [address] [place] [address] 02/15 CBC w/ auto diff RDW-C V, % % 11.6 14.4 14.0 FINAL Marcelo Olson B&Whole Blood [facility] ([facility]), [address], [address] [facility] [place] [facility] 02/15 CBC w/ auto diff PLT 10*3/u L 163.0 337.0 172.0 FINAL Marcelo Mahmoods B&Whole Blood [facility] ([facility]), [address], [place] [facility] [place] [address] 05/31 CBC w/ auto diff WBC 10*3/u L 4.2 9.1 10.4 High FINAL Marcelo Mahmoods B&Whole Blood [facility] ([facility]), [address], [address] [facility] [place] [facility] 05/31 CBC w/ auto diff Cristobal # (ANC) 10*3/u L 1.78 5.38 5.26 FINAL Marcelo Olson B&Whole Blood [facility] ([facility]), [address], [address] [place] [address] 05/31 CBC w/ auto diff LY # 10*3/u L 1.32 3.57 3.84 High FINAL Marcelo Olson B&Whole Blood [facility] ([facility]), [address], [address] [place] [address] 05/31 CBC w/ auto diff MO # 10*3/u L 0.3 0.82 0.94 High FINAL Marcelo Olson B&Whole Blood [facility] ([facility]), [address], [address] [place] [address] 05/31 CBC w/ auto diff EO # 10*3/u lL 0.04 0.54 0.30 FINAL Marcelo Olson B&Whole Blood [facility] ([facility]), [address], [address] [place] [address] 05/31 CBC w/ auto diff BA # 10*3/u L 0.01 0.08 0.03 FINAL Marcelo Olson B&Whole Blood [facility] ([facility]), [address], [address] [place] [address] 05/31 CBC w/ auto diff Cristobal % % 34.0 67.9 50.7 FINAL Marcelo Olson B&Whole Blood [facility] ([facility]), [address], [address] [place] [address] 05/31 CBC w/ auto diff LY % % 21.8 53.1 37.0 FINAL Marcelo Olson B&Whole Blood [facility] (T), [address], [address] [place] [address] 05/31 CBC w/ auto diff MO % % 5.3 12.2 9.1 FINAL Marcelo Mahmoods B&Whole Blood [facility] ([facility]), [address], [address] [place] [address] 05/31 CBC w/ auto diff EO % % 0.8 7.0 2.9 FINAL Marcelo Mahmoods B&Whole Blood [facility] ([facility]), [address], [address] [place] [address] 05/31 CBC w/ auto diff BA % % 0.2 1.2 0.3 FINAL Marcelo Mahmoods B&Whole Blood [facility] ([facility]), [address], [address] [place] [address] 05/31 CBC w/ auto diff RBC 10*6/u L 4.63 6.08 5.01 FINAL Marcelo Mahmoods B&Whole Blood [facility] ([facility]), [address], [address] [place] [address] 05/31 CBC w/ auto diff HGB g/dL 13.7 17.5 16.4 FINAL Marcelo Mahmoods B&Whole Blood [facility] ([facility]), [address], [address] [place] [address] 05/31 CBC w/ auto diff HCT % 40.1 51.0 47.5 FINAL Marcelo Mahmoods B&Whole Blood [facility] ([facility]), [address], [address] [place] [address] 05/31 CBC w/ auto diff MCV fL 79.0 92.2 94.8 High FINAL Marcelo Mahmoods B&Whole Blood [facility] ([facility]), [address], [address] [place] [address] 05/31 CBC w/ auto diff MCH pg 25.7 32.2 32.7 High FINAL [facility] B&Whole Blood [facility] ([facility]), [address], [address] [place] [address] 05/31 CBC w/ auto diff MCHC g/dL 32.3 36.5 34.5 FINAL Marcelo Mahmoods B&Whole Blood [facility] ([facility]), [address], [address] [place] [address] 05/31 CBC w/ auto diff RDW-C V, % % 11.6 14.4 13.8 FINAL Marcelo Mahmoods B&Whole Blood [facility] ([facility]), [address], [address] [place] [address] 05/31 CBC w/ auto diff PLT 10*3/u L 163.0 337.0 161.0 Low FINAL Marcelo Mahmoods B&Whole Blood [facility] ([facility]), [address], [address] [place] [address] 06/21 CBC w/ auto diff WBC 10*3/u L 4.2 9.1 14.1 High FINAL Marcelo [facility] ([facility]), [address], [address] [place] [address] 06/21 CBC w/ auto diff Cristobal # (ANC) 10*3/u L 1.78 5.38 10.63 High FINAL Marcelo [facility] ([facility]), [address], [address] [place] [address] 06/21 CBC w/ auto diff LY # 10*3/u L 1.32 3.57 2.09 FINAL Marcelo [facility] ([facility]), [address], [address] [place] [address] 06/21 CBC w/ auto diff MO # 10*3/u L 0.3 0.82 1.34 High FINAL Marcelo [facility] ([facility]), [address], [address] [place] [address] 06/21 CBC w/ auto diff EO # 10*3/u lL 0.04 0.54 0.03 Low FINAL Marcelo [facility] ([facility]), [address], [address] [place] [address] 06/21 CBC w/ auto diff BA # 10*3/u L 0.01 0.08 0.02 FINAL Marcelo [facility] ([facility]), [address], [address] [place] [address] 06/21 CBC w/ auto diff Cristobal % % 34.0 67.9 75.4 High FINAL Marcelo [facility] ([facility]), [address], [address] [place] [address] 06/21 CBC w/ auto diff LY % % 21.8 53.1 14.8 Low FINAL Marcelo [facility] ([facility]), [address], [address] [place] [address] 06/21 CBC w/ auto diff MO % % 5.3 12.2 9.5 FINAL Marcelo [facility] ([facility]), [address], [address] [place] [address] 06/21 CBC w/ auto diff EO % % 0.8 7.0 0.2 Low FINAL [facility] ([facility]), [address], [address] [place] [address] 06/21 CBC w/ auto diff BA % % 0.2 1.2 0.1 Low FINAL [facility] ([facility]), [address], [address] [place] [address] 06/21 CBC w/ auto diff RBC 10*6/u L 4.63 6.08 4.90 FINAL [facility] ([facility]), [address], [address] [place] [address] 06/21 CBC w/ auto diff HGB g/dL 13.7 17.5 16.0 FINAL [facility] ([facility]), [address], [address] [place] [address] 06/21 CBC w/ auto diff HCT % 40.1 51.0 47.5 FINAL [facility] ([facility]), [address], [address] [place] [address] 06/21 CBC w/ auto diff MCV fL 79.0 92.2 96.9 High FINAL [facility] ([facility]), [address], [address] [place] [address] 06/21 CBC w/ auto diff MCH pg 25.7 32.2 32.7 High FINAL [facility] ([facility]), [address], [address] [place] [address] 06/21 CBC w/ auto diff MCHC g/dL 32.3 36.5 33.7 FINAL [facility] ([facility]), [address], [address] [place] [address] 06/21 CBC w/ auto diff RDW-C V, % % 11.6 14.4 14.0 FINAL [facility] ([facility]), [address], [address] [place] [address] 06/21 CBC w/ auto diff PLT 10*3/u L 163.0 337.0 185.0 FINAL Marcelo Olson [facility] ([facility]), [address], [address] [facility] [address] 07/23 Lab Repor t See top distribution executive d Medications Date Name Route Dose Frequency Instructions Start Date End Date Status Fill Status Indication 12/22 Sitagli ptin-Me tformin Oral 50 mg-1,00 0 mg orally 1.0 2 times per day active 12/22 Aspirin Oral orally 81.0 mg daily active 12/22 Insulin Detemir Subcuta neous 100 unit/mL subcutan eously 36.0 every evening active 12/22 Cyanoco balamin Oral orally 5000.0 mcg daily active 12/22 [place] 3-DHA-E PA-Fish Oil Oral Liquid 1,600 mg-500 [...] Print Location: Unknown Date/Time Printed: 10/19/2025 17:08 ([facility]) Patient: VALERIE PUENTES Sex: Male : [...] Selected Billing Code(s): PHLEBOTOMY THERAPEUTIC SEPARATE PROCEDURE (86294) Entered By Barbara Casas RN; Incident to Marcelo Olson MD * Nurse Note for: 09-NOV-19 [facility] Nurse Note Print Location: Unknown Date/Time Printed: 10/19/2025 17:08 ([facility]) Patient: VALERIE PUENTES Sex: Male : [...] Selected Billing Code(s): PHLEBOTOMY THERAPEUTIC SEPARATE PROCEDURE (20332) Entered By Ju Gupta RN; Incident to Marcelo Olson MD * Nurse Note for: 20-JUL-19 [facility] Nurse Note Print Location: Unknown Date/Time Printed: 10/19/2025 17:08 ([facility]) Patient: VALERIE PUENTES Sex: Male : [...] Selected Billing Code(s): PHLEBOTOMY THERAPEUTIC SEPARATE PROCEDURE (64896) Entered By Barbara Garcia RN; Incident to Marcelo Olson MD
--- OUTSIDE RECORDS SUMMARY | 2025-10-19 17:09 | XMS_ITS ---
Author Name Interface, [id number] lity Address [address] [place] [address] Organization [facility] Address [address] [place] [address] Allergies and Adverse Reactions Medication/Group Name Reaction [...] 8.8 FINAL Marcelo Olson B&Whole Blood Formerly [facility] ([facility]), [address], [address] [place] [address] 02/15 CBC w/ auto diff Cristobal # (ANC) 10*3/u L 1.78 5.38 4.12 FINAL Marcelo Olson B&Whole Blood Formerly [facility] ([facility]), [address], [address] [place] [address] 02/15 CBC w/ auto diff LY # 10*3/u L 1.32 3.57 3.32 FINAL Marcelo Olson B&Whole Blood Formerly [facility] ([facility]), [address], [address] [place] [address] 02/15 CBC w/ auto diff MO # 10*3/u L 0.3 0.82 0.96 High FINAL Marcelo Olson B&Whole Blood Formerly [facility] ([facility]), [address], [address] [place] [address] 02/15 CBC w/ auto diff EO # 10*3/u lL 0.04 0.54 0.36 FINAL Marcelo Olson B&Whole Blood Formerly [facility] ([facility]), [address], [address] [place] [address] 02/15 CBC w/ auto diff BA # 10*3/u L 0.01 0.08 0.04 FINAL Marcelo Olson B&Whole Blood Formerly [facility] ([facility]), [address], [address] [place] [address] 02/15 CBC w/ auto diff Cristobal % % 34.0 67.9 46.8 FINAL Marcelo Olson B&Whole Blood Formerly [facility] ([facility]), [address], [address] [place] [address] 02/15 CBC w/ auto diff LY % % 21.8 53.1 37.7 FINAL Marcelo Mahmoods B&Whole Blood [facility] ([facility]), [address], [place] [facility] [place] [address] 02/15 CBC w/ auto diff MO % % 5.3 12.2 10.9 FINAL Marcelo Mahmoods B&Whole Blood [facility] ([facility]), [address], [place] [address] 02/15 CBC w/ auto diff EO % % 0.8 7.0 4.1 FINAL Marcelo Olson B&Whole Blood [facility] ([facility]), [address], [address] [facility] [place] [facility] 02/15 CBC w/ auto diff BA % % 0.2 1.2 0.5 FINAL Marcelo Mahmoods B&Whole Blood Formerly [facility] (T), [address], [address] [facility] [place] [facility] 02/15 CBC w/ auto diff RBC 10*6/u L 4.63 6.08 5.33 FINAL Marcelo Mahmoods B&Whole Blood Formerly [facility] (T), [address], [address] [facility] [place] [facility] 02/15 CBC w/ auto diff HGB g/dL 13.7 17.5 17.4 FINAL Marcelo Olson B&Whole Blood [facility] (T), [address], [address] [facility] [place] [facility] 02/15 CBC w/ auto diff HCT % 40.1 51.0 50.4 FINAL Marcelo Mahmoods B&Whole Blood Formerly [facility] (T), [address], [address] [facility] [place] [facility] 02/15 CBC w/ auto diff MCV fL 79.0 92.2 94.6 High FINAL Marcelo Mahmoods B&Whole Blood [facility] ([facility]), [address], [place] [facility] [place] [address] 02/15 CBC w/ auto diff MCH pg 25.7 32.2 32.6 High FINAL Marcelo Mahmoods B&Whole Blood [facility] ([facility]), [address], [place] [facility] [place] [address] 02/15 CBC w/ auto diff MCHC g/dL 32.3 36.5 34.5 FINAL Marcelo Mahmoods B&Whole Blood [facility] ([facility]), [address], [address] [place] [address] 02/15 CBC w/ auto diff RDW-C V, % % 11.6 14.4 14.0 FINAL Marcelo Mahmoods B&Whole Blood Formerly [facility] (T), [address], [address] [place] [address] 02/15 CBC w/ auto diff PLT 10*3/u L 163.0 337.0 172.0 FINAL Marcelo Mahmoods B&Whole Blood Formerly [facility] ([facility]), [address], [address] [place] [address] 05/31 CBC w/ auto diff WBC 10*3/u L 4.2 9.1 10.4 High FINAL Marcelo Mahmoods B&Whole Blood Formerly [facility] ([facility]), [address], [address] [place] [address] 05/31 CBC w/ auto diff Cristobal # (ANC) 10*3/u L 1.78 5.38 5.26 FINAL Marcelo Mahmoods B&Whole Blood Formerly [facility] ([facility]), [address], [address] [place] [address] 05/31 CBC w/ auto diff LY # 10*3/u L 1.32 3.57 3.84 High FINAL Marcelo Mahmoods B&Whole Blood Formerly [facility] ([facility]), [address], [address] [place] [address] 05/31 CBC w/ auto diff MO # 10*3/u L 0.3 0.82 0.94 High FINAL Marcelo Mahmoods B&Whole Blood Formerly [facility] ([facility]), [address], [address] [place] [address] 05/31 CBC w/ auto diff EO # 10*3/u lL 0.04 0.54 0.30 FINAL Marcelo Mahmoods B&Whole Blood Formerly [facility] ([facility]), [address], [address] [place] [address] 05/31 CBC w/ auto diff BA # 10*3/u L 0.01 0.08 0.03 FINAL Marcelo Herms B&Whole Blood [facility] ([facility]), [address], [address] [place] [address] 05/31 CBC w/ auto diff Cristobal % % 34.0 67.9 50.7 FINAL Marcelo Herms B&Whole Blood [facility] (T), [address], [address] [facility] [place] [facility] 05/31 CBC w/ auto diff LY % % 21.8 53.1 37.0 FINAL Marcelo Olson B&Whole Blood Formerly [facility] (T), [address], [address] [place] [address] 05/31 CBC w/ auto diff MO % % 5.3 12.2 9.1 FINAL Marcelo Olson B&Whole Blood Formerly [facility] (T), [address], [address] [place] [address] 05/31 CBC w/ auto diff EO % % 0.8 7.0 2.9 FINAL Marcelo Oslon B&Whole Blood Formerly [facility] (T), [address], [address] [place] [address] 05/31 CBC w/ auto diff BA % % 0.2 1.2 0.3 FINAL Marcelo Olson B&Whole Blood Formerly [facility] (T), [address], [address] [place] [address] 05/31 CBC w/ auto diff RBC 10*6/u L 4.63 6.08 5.01 FINAL Marcelo Olson B&Whole Blood Formerly [facility] (T), [address], [address] [place] [address] 05/31 CBC w/ auto diff HGB g/dL 13.7 17.5 16.4 FINAL Marcelo Olson B&Whole Blood Formerly [facility] (T), [address], [address] [place] [address] 05/31 CBC w/ auto diff HCT % 40.1 51.0 47.5 FINAL Marcelo Olson B&Whole Blood Formerly [facility] (T), [address], [address] [place] [address] 05/31 CBC w/ auto diff MCV fL 79.0 92.2 94.8 High FINAL Marcelo Olson B&Whole Blood Formerly [facility] (T), [address], [address] [place] [address] 05/31 CBC w/ auto diff MCH pg 25.7 32.2 32.7 High FINAL Marcelo Olson B&Whole Blood Formerly [facility] (T), [address], [address] [place] [address] 05/31 CBC w/ auto diff MCHC g/dL 32.3 36.5 34.5 FINAL Marcelo [facility] B&Whole Blood [facility] ([facility]), [address], [address] [place] [address] 05/31 CBC w/ auto diff RDW-C V, % % 11.6 14.4 13.8 FINAL Marcelo [facility] B&Whole Blood Formerly [facility] ([facility]), [address], [address] [place] [address] 05/31 CBC w/ auto diff PLT 10*3/u L 163.0 337.0 161.0 Low FINAL [facility] B&Whole Blood Formerly [facility] ([facility]), [address], [address] [place] [address] 06/21 CBC w/ auto diff WBC 10*3/u L 4.2 9.1 14.1 High FINAL [facility] (T), [address], [address] [place] [address] 06/21 CBC w/ auto diff Cristobal # (ANC) 10*3/u L 1.78 5.38 10.63 High FINAL [facility] (T), [address], [address] [place] [address] 06/21 CBC w/ auto diff LY # 10*3/u L 1.32 3.57 2.09 FINAL [facility] (T), [address], [address] [place], [place] [id number] 06/21 CBC w/ auto diff MO # 10*3/u L 0.3 0.82 1.34 High FINAL [facility] ([facility]), [address], [address] [place], [place] [id number] 06/21 CBC w/ auto diff EO # 10*3/u lL 0.04 0.54 0.03 Low FINAL [facility] ([facility]), [address], [address] [facility] [address] 06/21 CBC w/ auto diff BA # 10*3/u L 0.01 0.08 0.02 FINAL [facility] ([facility]), [address], [address] [place] [address] 06/21 CBC w/ auto diff Cristobal % % 34.0 67.9 75.4 High FINAL Marcelo [facility] ([facility]), [address], [address] [place] [address] 06/21 CBC w/ auto diff LY % % 21.8 53.1 14.8 Low FINAL Marcelo [facility] ([facility]), [address], [address] [place] [address] 06/21 CBC w/ auto diff MO % % 5.3 12.2 9.5 FINAL Marcelo [facility] ([facility]), [address], [address] [place] [address] 06/21 CBC w/ auto diff EO % % 0.8 7.0 0.2 Low FINAL Marcelo [facility] ([facility]), [address], [address] [place] [address] 06/21 CBC w/ auto diff BA % % 0.2 1.2 0.1 Low FINAL Marcelo [facility] ([facility]), [address], [address] [place] [address] 06/21 CBC w/ auto diff RBC 10*6/u L 4.63 6.08 4.90 FINAL Marcelo [facility] ([facility]), [address], [address] [place] [address] 06/21 CBC w/ auto diff HGB g/dL 13.7 17.5 16.0 FINAL Marcelo [facility] ([facility]), [address], [address] [place] [address] 06/21 CBC w/ auto diff HCT % 40.1 51.0 47.5 FINAL Marcelo [facility] ([facility]), [address], [address] [place] [address] 06/21 CBC w/ auto diff MCV fL 79.0 92.2 96.9 High FINAL Marcelo [facility] ([facility]), [address], [address] [place] [address] 06/21 CBC w/ auto diff MCH pg 25.7 32.2 32.7 High FINAL [facility] ([facility]), [address], [address] [facility] [address] 06/21 CBC w/ auto diff MCHC g/dL 32.3 36.5 33.7 FINAL [facility] (T), [address], [address] [facility] [address] 06/21 CBC w/ auto diff RDW-C V, % % 11.6 14.4 14.0 FINAL [facility] (T), [address], [address] [facility] [address] 06/21 CBC w/ auto diff PLT 10*3/u L 163.0 337.0 185.0 FINAL [facility] ([facility]), [address], [address] [facility] [address] 07/23 Lab Repor t See stop attacher d Medications Date Name Route [...] Oral orally 5000.0 mcg daily active 12/22 [place] 3-DHA-E PA-Fish Oil Oral Liquid 1,600 mg-500 [...] Location: Unknown Date/Time Printed: 10/19/2025 17:08 (Lauren/[facility]) Patient: VALERIE PUENTES Sex: Male : [...] Selected Billing Code(s): PHLEBOTOMY THERAPEUTIC SEPARATE PROCEDURE (80553) Entered By Barbara Casas RN; Incident to Marcelo Olson MD
--- OUTSIDE RECORDS SUMMARY | 2025-10-19 17:09 | XMS_ITS ---
Author Name Interface, [id number] lity Address [address] [place] [address] Organization [facility] Address [address] [place] [address] Allergies and Adverse Reactions Medication/Group Name Reaction [...] 9.1 14.1 High FINAL Marcelo [facility] ([facility]), [address], [address] [facility] [address] 06/21 CBC w/ auto diff Cristobal # (ANC) 10*3/u L 1.78 5.38 10.63 High FINAL Marcelo [facility] ([facility]), [address], [address] [facility] [address] 06/21 CBC w/ auto diff LY # 10*3/u L 1.32 3.57 2.09 FINAL [facility] ([facility]), [address], [address] [facility] [address] 06/21 CBC w/ auto diff MO # 10*3/u L 0.3 0.82 1.34 High FINAL Marcelo [facility] ([facility]), [address], [address] [place] [address] 06/21 CBC w/ auto diff EO # 10*3/u lL 0.04 0.54 0.03 Low FINAL Marcelo [facility] ([facility]), [address], [address] [place] [address] 06/21 CBC w/ auto diff BA # 10*3/u L 0.01 0.08 0.02 FINAL Marcelo [facility] ([facility]), [address], [address] [place] [address] 06/21 CBC w/ auto diff Cristobal % % 34.0 67.9 75.4 High FINAL Marcelo [facility] ([facility]), [address], [address] [place] [address] 06/21 CBC w/ auto diff LY % % 21.8 53.1 14.8 Low FINAL Marcelo [facility] ([facility]), [address], [address] [place] [address] 06/21 CBC w/ auto diff MO % % 5.3 12.2 9.5 FINAL Marcelo [facility] ([facility]), [address], [address] [place] [address] 06/21 CBC w/ auto diff EO % % 0.8 7.0 0.2 Low FINAL Marcelo [facility] ([facility]), [address], [address] [place] [address] 06/21 CBC w/ auto diff BA % % 0.2 1.2 0.1 Low FINAL Marcelo [facility] ([facility]), [address], [address] [place] [address] 06/21 CBC w/ auto diff RBC 10*6/u L 4.63 6.08 4.90 FINAL Marcelo [facility] ([facility]), [address], [address] [place] [address] 06/21 CBC w/ auto diff HGB g/dL 13.7 17.5 16.0 FINAL [facility] ([facility]), [address], [address] [place] [address] 06/21 CBC w/ auto diff HCT % 40.1 51.0 47.5 FINAL [facility] ([facility]), [address], [address] [place] [address] 06/21 CBC w/ auto diff MCV fL 79.0 92.2 96.9 High FINAL [facility] ([facility]), [address], [address] [place], [place] [address] 06/21 CBC w/ auto diff MCH pg 25.7 32.2 32.7 High FINAL [facility] ([facility]), [address], [address] [place] [address] 06/21 CBC w/ auto diff MCHC g/dL 32.3 36.5 33.7 FINAL [facility] ([facility]), [address], [address] [facility] [address] 06/21 CBC w/ auto diff RDW-C V, % % 11.6 14.4 14.0 FINAL [facility] ([facility]), [address], [address] [facility] [address] 06/21 CBC w/ auto diff PLT 10*3/u L 163.0 337.0 185.0 FINAL [facility] ([facility]), [address], [address] [place], [place] [address] 07/23 Lab Repor t See editor department d Medications Date Name Route Dose Frequency Instructions Start Date End Date Status Fill Status Indication 12/22 [place] ptin-Me tformin Oral 50 mg-1,00 0 mg orally 1.0 2 times per day active 12/22 Aspirin Oral orally 81.0 mg daily active 12/22 Insulin Detemir Subcuta neous 100 unit/mL subcutan eously 36.0 every evening active 12/22 [place] balamin Oral orally 5000.0 mcg daily active 12/22 [place] 3-DHA-E [place]-Fish Oil Oral Liquid 1,600 mg-500 [...]
--- OUTSIDE RECORDS SUMMARY | 2025-10-19 17:09 | XMS_ITS ---
Author Name Interface, [id number] lity Address [address] [place] [address] Organization [facility] Address [address] [place] [address] Allergies and Adverse Reactions Medication/Group Name Reaction [...] Marcelo Olson B&Whole Blood [facility] ([facility]), [address], [address] [place] [address] 07/20 CBC w/ auto diff Cristobal # (ANC) 10*3/u L 1.78 5.38 4.47 FINAL Marcelo Olson B&Whole Blood [facility] ([facility]), [address] [place], Suite [facility] [place] [facility] 07/20 CBC w/ auto diff LY # 10*3/u L 1.32 3.57 3.40 FINAL Marcelo Olson B&Whole Blood [facility] ([facility]), [address] [place], [address] [place], [place] [id number] 07/20 CBC w/ auto diff MO # 10*3/u L 0.3 0.82 0.80 FINAL Marcelo Olson B&Whole Blood [facility] ([facility]), [address] [place], Suite [facility] [place] [address] 07/20 CBC w/ auto diff EO # 10*3/u lL 0.04 0.54 0.38 FINAL Marcelo Olson B&Whole Blood [facility] ([facility]), [address], Suite [facility] [place] [address] 07/20 CBC w/ auto diff BA # 10*3/u L 0.01 0.08 0.03 FINAL Marcelo Funez&Whole Blood [facility] ([facility]), [address], [address] [place] [address] 07/20 CBC w/ auto diff Cristobal % % 34.0 67.9 49.3 FINAL Marcelo Herms B&Whole Blood [facility] ([facility]), [address] [place], [address] [place] [address] 07/20 CBC w/ auto diff LY % % 21.8 53.1 37.4 FINAL Marcelo Herms B&Whole Blood [facility] (T), [address] [place], [address] [place] [address] 07/20 CBC w/ auto diff MO % % 5.3 12.2 8.8 FINAL Marcelo Herms B&Whole Blood [facility] ([facility]), [address] [place], [address] [place] [address] 07/20 CBC w/ auto diff EO % % 0.8 7.0 4.2 FINAL Marcelo Herms B&Whole Blood [facility] ([facility]), [address], [address] [place] [address] 07/20 CBC w/ auto diff BA % % 0.2 1.2 0.3 FINAL Marcelo Herms B&Whole Blood [facility] ([facility]), [address] [place], [address] [place] [address] 07/20 CBC w/ auto diff RBC 10*6/u L 4.63 6.08 5.60 FINAL Marcelo Herms B&Whole Blood [facility] ([facility]), [address], [address] [place] [address] 07/20 CBC w/ auto diff HGB g/dL 13.7 17.5 18.2 High FINAL Marcelo Herms B&Whole Blood [facility] ([facility]), [address] [place], [address] [place] [address] 07/20 CBC w/ auto diff HCT % 40.1 51.0 52.8 High FINAL Marcelo Herms B&Whole Blood [facility] ([facility]), [address] [place], [address] [place] [address] 07/20 CBC w/ auto diff MCV fL 79.0 92.2 94.3 High FINAL Marcelo Herms B&Whole Blood [facility] ([facility]), [address] [place], [address] [place] [address] 07/20 CBC w/ auto diff MCH pg 25.7 32.2 32.5 High FINAL Marcelo Herms B&Whole Blood [facility] ([facility]), [address] [place], [address] [place] [address] 07/20 CBC w/ auto diff MCHC g/dL 32.3 36.5 34.5 FINAL Marcelo Herms B&Whole Blood [facility] ([facility]), [address], [address] [place] [address] 07/20 CBC w/ auto diff RDW-C V, % % 11.6 14.4 12.5 FINAL Marcelo Herms B&Whole Blood [facility] ([facility]), [address] [place], [address] [place] [address] 07/20 CBC w/ auto diff PLT 10*3/u L 163.0 337.0 160.0 Low FINAL Marcelo Herms B&Whole Blood [facility] ([facility]), [address] [place], [address] [place] [address] 11/09 CBC w/ auto diff WBC 10*3/u [...] Blood 5 02/12 Lab Repor t See rn palliative care d 02/15 CBC w/ auto diff WBC 10*3/u L 4.2 9.1 8.8 FINAL Marcelo Olson B&Whole Blood [facility] ([facility]), [address], [address] [place] [address] 02/15 CBC w/ auto diff Cristobal # (ANC) 10*3/u L 1.78 5.38 4.12 FINAL Marcelo Mahmoods B&Whole Blood [facility] ([facility]), [address], Suite [facility] [place] [address] 02/15 CBC w/ auto diff LY # 10*3/u L 1.32 3.57 3.32 FINAL Marcelo Mahmoods B&Whole Blood [facility] ([facility]), [address] [place], Suite [facility] [place] [address] 02/15 CBC w/ auto diff MO # 10*3/u L 0.3 0.82 0.96 High FINAL Marcelo Mahmoods B&Whole Blood [facility] ([facility]), [address] [place], [address] [facility] [place] [address] 02/15 CBC w/ auto diff EO # 10*3/u lL 0.04 0.54 0.36 FINAL Marcelo Mahmoods B&Whole Blood [facility] ([facility]), [address] [place], [address] [facility] [place] [address] 02/15 CBC w/ auto diff BA # 10*3/u L 0.01 0.08 0.04 FINAL Marcelo Mahmoods B&Whole Blood [facility] ([facility]), [address], [address] [facility] [place] [address] 02/15 CBC w/ auto diff Cristobal % % 34.0 67.9 46.8 FINAL Marcelo Mahmoods B&Whole Blood [facility] ([facility]), [address] [place], [address] [facility] [place] [facility] 02/15 CBC w/ auto diff LY % % 21.8 53.1 37.7 FINAL Marcelo Mahmoods B&Whole Blood [facility] ([facility]), [address] [place], [address] [facility] [place] [address] 02/15 CBC w/ auto diff MO % % 5.3 12.2 10.9 FINAL Marcelo Mahmoods B&Whole Blood [facility] ([facility]), [address] [place], [address] [facility] [place] [address] 02/15 CBC w/ auto diff EO % % 0.8 7.0 4.1 FINAL Marcelo Mahmoods B&Whole Blood [facility] ([facility]), [address] [place], [address] [facility] [place] [address] 02/15 CBC w/ auto diff BA % % 0.2 1.2 0.5 FINAL Marcelo Mahmoods B&Whole Blood [facility] ([facility]), [address] [place], [address] [facility] [place] [address] 02/15 CBC w/ auto diff RBC 10*6/u L 4.63 6.08 5.33 FINAL Marcelo Olson B&Whole Blood [facility] ([facility]), [address] [place], [address] [facility] [place] [facility] 02/15 CBC w/ auto diff HGB g/dL 13.7 17.5 17.4 FINAL Marcelo Olson B&Whole Blood [facility] ([facility]), [address] [place], [address] [facility] [place] [facility] 02/15 CBC w/ auto diff HCT % 40.1 51.0 50.4 FINAL Marcelo Olson B&Whole Blood [facility] ([facility]), [address], [address] [place] [address] 02/15 CBC w/ auto diff MCV fL 79.0 92.2 94.6 High FINAL Marcelo Mahmoods B&Whole Blood [facility] ([facility]), [address] [place], [address] [place] [address] 02/15 CBC w/ auto diff MCH pg 25.7 32.2 32.6 High FINAL Marcelo Olson B&Whole Blood [facility] ([facility]), [address], [address] [place] [address] 02/15 CBC w/ auto diff MCHC g/dL 32.3 36.5 34.5 FINAL Marcelo Olson B&Whole Blood [facility] ([facility]), [address], [address] [place] [address] 02/15 CBC w/ auto diff RDW-C V, % % 11.6 14.4 14.0 FINAL Marcelo Olson B&Whole Blood [facility] ([facility]), [address] [place], [address] [facility] [place] [facility] 02/15 CBC w/ auto diff PLT 10*3/u L 163.0 337.0 172.0 FINAL Marcelo Mahmoods B&Whole Blood [facility] ([facility]), [address] [place], [address] [facility] [place] [address] 05/31 CBC w/ auto diff WBC 10*3/u L 4.2 9.1 10.4 High FINAL Marcelo Mahmoods B&Whole Blood [facility] ([facility]), [address] [place], [address] [facility] [place] [facility] 05/31 CBC w/ auto diff Cristobal # (ANC) 10*3/u L 1.78 5.38 5.26 FINAL Marcelo Olson B&Whole Blood [facility] (T), [address], [address] [place] [address] 05/31 CBC w/ auto diff LY # 10*3/u L 1.32 3.57 3.84 High FINAL Marcelo Olson B&Whole Blood [facility] (T), [address] [place], [address] [place] [address] 05/31 CBC w/ auto diff MO # 10*3/u L 0.3 0.82 0.94 High FINAL Marcelo Olson B&Whole Blood [facility] ([facility]), [address], [address] [place] [address] 05/31 CBC w/ auto diff EO # 10*3/u lL 0.04 0.54 0.30 FINAL Marcelo Olson B&Whole Blood [facility] (T), [address], [address] [place] [address] 05/31 CBC w/ auto diff BA # 10*3/u L 0.01 0.08 0.03 FINAL Marcelo Olson B&Whole Blood [facility] (T), [address] [place], [address] [place] [address] 05/31 CBC w/ auto diff Cristobal % % 34.0 67.9 50.7 FINAL Marcelo Olson B&Whole Blood [facility] (T), [address] [place], [address] [place] [address] 05/31 CBC w/ auto diff LY % % 21.8 53.1 37.0 FINAL Marcelo Olson B&Whole Blood [facility] (T), [address], [address] [place] [address] 05/31 CBC w/ auto diff MO % % 5.3 12.2 9.1 FINAL Marcelo Mahmoods B&Whole Blood [facility] ([facility]), [address] [place], [address] [place] [address] 05/31 CBC w/ auto diff EO % % 0.8 7.0 2.9 FINAL Marcelo Mahmoods B&Whole Blood [facility] ([facility]), [address] [place], [address] [place] [address] 05/31 CBC w/ auto diff BA % % 0.2 1.2 0.3 FINAL Marcelo Mahmoods B&Whole Blood [facility] ([facility]), [address] [place], [address] [place] [address] 05/31 CBC w/ auto diff RBC 10*6/u L 4.63 6.08 5.01 FINAL Marcelo Mahmoods B&Whole Blood [facility] ([facility]), [address] [place], [address] [place] [address] 05/31 CBC w/ auto diff HGB g/dL 13.7 17.5 16.4 FINAL Marcelo Mahmoods B&Whole Blood [facility] ([facility]), [address] [place], [address] [place] [address] 05/31 CBC w/ auto diff HCT % 40.1 51.0 47.5 FINAL Marcelo Mahmoods B&Whole Blood [facility] ([facility]), [address] [place], [address] [place] [address] 05/31 CBC w/ auto diff MCV fL 79.0 92.2 94.8 High FINAL Marcelo Mahmoods B&Whole Blood [facility] ([facility]), [address] [place], [address] [place] [address] 05/31 CBC w/ auto diff MCH pg 25.7 32.2 32.7 High FINAL [facility] B&Whole Blood [facility] ([facility]), [address] [place], [address] [place] [address] 05/31 CBC w/ auto diff MCHC g/dL 32.3 36.5 34.5 FINAL Marcelo Mahmoods B&Whole Blood [facility] ([facility]), [address] [place], [address] [place] [address] 05/31 CBC w/ auto diff RDW-C V, % % 11.6 14.4 13.8 FINAL Marcelo Mahmoods B&Whole Blood [facility] ([facility]), [address] [place], [address] [place] [address] 05/31 CBC w/ auto diff PLT 10*3/u L 163.0 337.0 161.0 Low FINAL Marcelo Mahmoods B&Whole Blood [facility] ([facility]), [address] [place], [address] [place] [address] 06/21 CBC w/ auto diff WBC 10*3/u L 4.2 9.1 14.1 High FINAL Marcelo [facility] ([facility]), [address], [address] [place] [address] 06/21 CBC w/ auto diff Cristobal # (ANC) 10*3/u L 1.78 5.38 10.63 High FINAL Marcelo [facility] ([facility]), [address] [place], [address] [place] [address] 06/21 CBC w/ auto diff LY # 10*3/u L 1.32 3.57 2.09 FINAL Marcelo [facility] ([facility]), [address] [place], [address] [place] [address] 06/21 CBC w/ auto diff MO # 10*3/u L 0.3 0.82 1.34 High FINAL Marcelo [facility] ([facility]), [address] [place], [address] [place] [address] 06/21 CBC w/ auto diff EO # 10*3/u lL 0.04 0.54 0.03 Low FINAL Marcelo [facility] ([facility]), [address] [place], [address] [place] [address] 06/21 CBC w/ auto diff BA # 10*3/u L 0.01 0.08 0.02 FINAL Marcelo [facility] ([facility]), [address] [place], [address] [place] [address] 06/21 CBC w/ auto diff Cristobal % % 34.0 67.9 75.4 High FINAL Marcelo [facility] ([facility]), [address] [place], [address] [place] [address] 06/21 CBC w/ auto diff LY % % 21.8 53.1 14.8 Low FINAL Marcelo [facility] ([facility]), [address] [place], [address] [place] [address] 06/21 CBC w/ auto diff MO % % 5.3 12.2 9.5 FINAL Marcelo [facility] ([facility]), [address] [place], [address] [place] [address] 06/21 CBC w/ auto diff EO % % 0.8 7.0 0.2 Low FINAL [facility] ([facility]), [address] [place], [address] [place] [address] 06/21 CBC w/ auto diff BA % % 0.2 1.2 0.1 Low FINAL [facility] ([facility]), [address] [place], [address] [place] [address] 06/21 CBC w/ auto diff RBC 10*6/u L 4.63 6.08 4.90 FINAL [facility] ([facility]), [address] [place], [address] [place] [address] 06/21 CBC w/ auto diff HGB g/dL 13.7 17.5 16.0 FINAL [facility] ([facility]), [address] [place], [address] [place] [address] 06/21 CBC w/ auto diff HCT % 40.1 51.0 47.5 FINAL [facility] ([facility]), [address] [place], [address] [place] [address] 06/21 CBC w/ auto diff MCV fL 79.0 92.2 96.9 High FINAL [facility] ([facility]), [address] [place], [address] [place] [address] 06/21 CBC w/ auto diff MCH pg 25.7 32.2 32.7 High FINAL [facility] ([facility]), [address] [place], [address] [place] [address] 06/21 CBC w/ auto diff MCHC g/dL 32.3 36.5 33.7 FINAL [facility] ([facility]), [address] [place], [address] [place] [address] 06/21 CBC w/ auto diff RDW-C V, % % 11.6 14.4 14.0 FINAL [facility] ([facility]), [address] [place], [address] [place] [address] 06/21 CBC w/ auto diff PLT 10*3/u L 163.0 337.0 185.0 FINAL Marcelo Olson [facility] ([facility]), [address] [place], [address] [facility] [address] 07/23 Lab Repor t See rn palliative care d Medications Date Name Route Dose Frequency Instructions Start Date End Date Status Fill Status Indication 12/22 Sitagli ptin-Me tformin Oral 50 mg-1,00 0 mg orally 1.0 2 times per day active 12/22 Aspirin Oral orally 81.0 mg daily active 12/22 Insulin Detemir Subcuta neous 100 unit/mL subcutan eously 36.0 every evening active 12/22 Cyanoco balamin Oral orally 5000.0 mcg daily active 12/22 [place] 3-DHA-E PA-Fish Oil Oral Liquid 1,600 mg-500 [...] Print Location: Unknown Date/Time Printed: 10/19/2025 17:09 ([place]) Patient: VALERIE PUENTES Sex: Male : 1960 [...] Selected Billing Code(s): PHLEBOTOMY THERAPEUTIC SEPARATE PROCEDURE (10171) Entered By Barbara Casas RN; Incident to Marcelo Olson MD * Nurse Note for: 09-NOV-19 [facility] Nurse Note Print Location: Unknown Date/Time Printed: 10/19/2025 17:09 ([place]/[place]) Patient: VALERIE PUENTES Sex: Male : 1960 [...] Selected Billing Code(s): PHLEBOTOMY THERAPEUTIC SEPARATE PROCEDURE (71232) Entered By Ju Gupta RN; Incident to Marcelo Olson MD * Nurse Note for: 20-JUL-19 [facility] Nurse Note Print Location: Unknown Date/Time Printed: 10/19/2025 17:09 ([place]) Patient: VALERIE PUENTES Sex: Male : 1960 [...] Selected Billing Code(s): PHLEBOTOMY THERAPEUTIC SEPARATE PROCEDURE (32567) Entered By Barbara Garcia RN; Incident to Marcelo Olson MD
== END 2025-10-19 23:59 | disposition home or self-care (01) ==
LOC: LAB 14:58
PROVIDERS: PCP Family Medicine; Visit Provider Physician Assistant
DX: I25.10 Atherosclerotic heart disease of native coronary artery without angina pectoris (principal); E78.2 Mixed hyperlipidemia
CPT/HCPCS: 36415; 80048; 80061; 80076; 83735; 84439; 84443; 85025

== ENCOUNTER 2025-11-16 06:04 | Outpatient (CLI) | payer OTHER, SELFPAY ==
--- NOTE | 2025-11-16 | CA_ITS ---
APPROVED REPORT Exam: Pharmacologic Technologist: Shruti Chavez Stress Nurse: Liset Rodriguez Ht: 5 ft 9 in Wt: 161 lbs BSA: 1.88 m2 HR: 46 bpm BP: 168/55 mmHg Rhythm: Sinus Bradycardia Indications: CAD, Shortness of breath, Abnormal EKG Medical History Medical History: HTN, Hyperlipidemia, Diabetes, Smoking Cardiac Risk Factors: HTN, Hyperlipidemia, Diabetes, Smoking Stress Test Details Test: Lexiscan HR Resting HR: 46 bpm Max Heart Rate (APMHR): 153.885223 bpm Target HR (85% APMHR): 130.161270 bpm Recovery HR: 66 bpm BP Resting BP: 168.0/55.0 mmHg Max BP: 174.0/75.0 mmHg Recovery BP: 163.0/66.0 mmHg ECG Resting ECG: Sinus Bradycardia Stress ECG Conclusion Patient had no symptoms PVC Less than 0.5mm upsloping ST segment changes Electronically signed by : Donita Jade MD 11/17/2025 13:36:31
--- OUTSIDE RECORDS SUMMARY | 2025-11-16 06:07 | XMS_ITS | Clinical Summary ---
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
--- OUTSIDE RECORDS SUMMARY | 2025-11-16 06:07 | XMS_ITS ---
Author Name Interface, [id number] lity Address [address] [place] [address] Organization [facility] Address [address] [place] [address] Allergies and Adverse Reactions Medication/Group Name Reaction [...] High FINAL Marcelo Olson B&Whole Blood Formerly [facility] ([facility]), [address], [address] [place] [address] 07/20 CBC w/ auto diff Cristobal # (ANC) 10*3/u L 1.78 5.38 4.47 FINAL Marcelo Olson B&Whole Blood Formerly [facility] ([facility]), [address], Suite [facility] [place] [facility] 07/20 CBC w/ auto diff LY # 10*3/u L 1.32 3.57 3.40 FINAL Marcelo Olson B&Whole Blood Formerly [facility] ([facility]), [address], [address] [place], [place] [id number] 07/20 CBC w/ auto diff MO # 10*3/u L 0.3 0.82 0.80 FINAL Marcelo Olson B&Whole Blood Formerly [facility] ([facility]), [address], [place] [facility] [place] [address] 07/20 CBC w/ auto diff EO # 10*3/u lL 0.04 0.54 0.38 FINAL Marcelo Olson B&Whole Blood Formerly [facility] ([facility]), [address], [address] [facility] [place] [address] 07/20 CBC w/ auto diff BA # 10*3/u L 0.01 0.08 0.03 FINAL Marcelo Funez&Whole Blood [facility] ([facility]), [address], [address] [place] [address] 07/20 CBC w/ auto diff Cristobal % % 34.0 67.9 49.3 FINAL Marcelo Herms B&Whole Blood [facility] ([facility]), [address], [address] [place] [address] 07/20 CBC w/ auto diff LY % % 21.8 53.1 37.4 FINAL Marcelo Herms B&Whole Blood [facility] ([facility]), [address], [address] [place] [address] 07/20 CBC w/ auto diff MO % % 5.3 12.2 8.8 FINAL Marcelo Herms B&Whole Blood [facility] ([facility]), [address], [address] [place] [address] 07/20 CBC w/ auto diff EO % % 0.8 7.0 4.2 FINAL Marcelo Herms B&Whole Blood Former[facility] ([facility]), [address], [address] [place] [address] 07/20 CBC w/ auto diff BA % % 0.2 1.2 0.3 FINAL Marcelo Herms B&Whole Blood [facility] ([facility]), [address], [address] [place] [address] 07/20 CBC w/ auto diff RBC 10*6/u L 4.63 6.08 5.60 FINAL Marcelo Herms B&Whole Blood Former[facility] ([facility]), [address], [address] [place] [address] 07/20 CBC w/ auto diff HGB g/dL 13.7 17.5 18.2 High FINAL Marcelo Herms B&Whole Blood [facility] ([facility]), [address], [address] [place] [address] 07/20 CBC w/ auto diff HCT % 40.1 51.0 52.8 High FINAL Marcelo Herms B&Whole Blood [facility] ([facility]), [address], [address] [place] [address] 07/20 CBC w/ auto diff MCV fL 79.0 92.2 94.3 High FINAL Marcelo Herms B&Whole Blood [facility] ([facility]), [address], [address] [place] [address] 07/20 CBC w/ auto diff MCH pg 25.7 32.2 32.5 High FINAL Marcelo Herms B&Whole Blood Former[facility] ([facility]), [address], [address] [place] [address] 07/20 CBC w/ auto diff MCHC g/dL 32.3 36.5 34.5 FINAL Marcelo Herms B&Whole Blood Former[facility] ([facility]), [address], [address] [place] [address] 07/20 CBC w/ auto diff RDW-C V, % % 11.6 14.4 12.5 FINAL Marcelo Herms B&Whole Blood Former[facility] ([facility]), [address], [address] [place] [address] 07/20 CBC w/ auto diff PLT 10*3/u L 163.0 337.0 160.0 Low FINAL Marcelo Herms B&Whole Blood Formerly [facility] ([facility]), [address], [address] [place] [address] 11/09 CBC w/ auto diff WBC 10*3/u [...] Blood 5 02/12 Lab Repor t See pattern maker d 02/15 CBC w/ auto diff WBC 10*3/u L 4.2 9.1 8.8 FINAL Marcelo Olson B&Whole Blood Former[facility] ([facility]), [address], [address] [place] [address] 02/15 CBC w/ auto diff Cristobal # (ANC) 10*3/u L 1.78 5.38 4.12 FINAL Marcelo Mahmoods B&Whole Blood [facility] ([facility]), [address], [place] [facility] [place] [address] 02/15 CBC w/ auto diff LY # 10*3/u L 1.32 3.57 3.32 FINAL Marcelo Mahmoods B&Whole Blood [facility] ([facility]), [address], [place] [facility] [place] [address] 02/15 CBC w/ auto diff MO # 10*3/u L 0.3 0.82 0.96 High FINAL Marcelo Mahmoods B&Whole Blood [facility] ([facility]), [address], [place] [facility] [place] [address] 02/15 CBC w/ auto diff EO # 10*3/u lL 0.04 0.54 0.36 FINAL Marcelo Mahmoods B&Whole Blood [facility] ([facility]), [address], [place] [facility] [place] [address] 02/15 CBC w/ auto diff BA # 10*3/u L 0.01 0.08 0.04 FINAL Marcelo Mahmoods B&Whole Blood [facility] ([facility]), [address], [place] [facility] [place] [address] 02/15 CBC w/ auto diff Cristobal % % 34.0 67.9 46.8 FINAL Marcelo Mahmoods B&Whole Blood [facility] ([facility]), [address], [address] [facility] [place] [facility] 02/15 CBC w/ auto diff LY % % 21.8 53.1 37.7 FINAL Marcelo Mahmoods B&Whole Blood [facility] ([facility]), [address], [place] [facility] [place] [address] 02/15 CBC w/ auto diff MO % % 5.3 12.2 10.9 FINAL Marcelo Mahmoods B&Whole Blood [facility] ([facility]), [address], [place] [facility] [place] [address] 02/15 CBC w/ auto diff EO % % 0.8 7.0 4.1 FINAL Marcelo Mahmoods B&Whole Blood [facility] ([facility]), [address], [place] [facility] [place] [address] 02/15 CBC w/ auto diff BA % % 0.2 1.2 0.5 FINAL Marcelo Mahmoods B&Whole Blood [facility] ([facility]), [address], [place] [facility] [place] [address] 02/15 CBC w/ auto diff RBC 10*6/u L 4.63 6.08 5.33 FINAL Marcelo Olson B&Whole Blood Former[facility] ([facility]), [address], [address] [facility] [place] [facility] 02/15 CBC w/ auto diff HGB g/dL 13.7 17.5 17.4 FINAL Marcelo Olson B&Whole Blood Former[facility] ([facility]), [address], [address] [facility] [place] [facility] 02/15 CBC w/ auto diff HCT % 40.1 51.0 50.4 FINAL Marcelo Olson B&Whole Blood Former[facility] ([facility]), [address], [address] [place] [address] 02/15 CBC w/ auto diff MCV fL 79.0 92.2 94.6 High FINAL Marcelo Mahmoods B&Whole Blood Former[facility] ([facility]), [address], [address] [place] [address] 02/15 CBC w/ auto diff MCH pg 25.7 32.2 32.6 High FINAL Marcelo Olson B&Whole Blood Former[facility] ([facility]), [address], [address] [place] [address] 02/15 CBC w/ auto diff MCHC g/dL 32.3 36.5 34.5 FINAL Marcelo Olson B&Whole Blood Former[facility] ([facility]), [address], [address] [place] [address] 02/15 CBC w/ auto diff RDW-C V, % % 11.6 14.4 14.0 FINAL Marcelo Olson B&Whole Blood Former[facility] ([facility]), [address], [address] [facility] [place] [facility] 02/15 CBC w/ auto diff PLT 10*3/u L 163.0 337.0 172.0 FINAL Marcelo Mahmoods B&Whole Blood Former[facility] ([facility]), [address], [place] [facility] [place] [address] 05/31 CBC w/ auto diff WBC 10*3/u L 4.2 9.1 10.4 High FINAL Marcelo Mahmoods B&Whole Blood [facility] ([facility]), [address], [address] [facility] [place] [facility] 05/31 CBC w/ auto diff Cristobal # (ANC) 10*3/u L 1.78 5.38 5.26 FINAL Marcelo Olson B&Whole Blood Former[facility] ([facility]), [address], [address] [place] [address] 05/31 CBC w/ auto diff LY # 10*3/u L 1.32 3.57 3.84 High FINAL Marcelo Olson B&Whole Blood Former[facility] ([facility]), [address], [address] [place] [address] 05/31 CBC w/ auto diff MO # 10*3/u L 0.3 0.82 0.94 High FINAL Marcelo Olson B&Whole Blood [facility] ([facility]), [address], [address] [place] [address] 05/31 CBC w/ auto diff EO # 10*3/u lL 0.04 0.54 0.30 FINAL Marcelo Olson B&Whole Blood Former[facility] ([facility]), [address], [address] [place] [address] 05/31 CBC w/ auto diff BA # 10*3/u L 0.01 0.08 0.03 FINAL Marcelo Olson B&Whole Blood [facility] ([facility]), [address], [address] [place] [address] 05/31 CBC w/ auto diff Cristobal % % 34.0 67.9 50.7 FINAL Marcelo Olson B&Whole Blood [facility] ([facility]), [address], [address] [place] [address] 05/31 CBC w/ auto diff LY % % 21.8 53.1 37.0 FINAL Marcelo Olson B&Whole Blood [facility] ([facility]), [address], [address] [place] [address] 05/31 CBC w/ auto diff MO % % 5.3 12.2 9.1 FINAL Marcelo Mahmoods B&Whole Blood [facility] ([facility]), [address], [address] [place] [address] 05/31 CBC w/ auto diff EO % % 0.8 7.0 2.9 FINAL Marcelo Mahmoods B&Whole Blood [facility] ([facility]), [address], [address] [place] [address] 05/31 CBC w/ auto diff BA % % 0.2 1.2 0.3 FINAL Marcelo Mahmoods B&Whole Blood [facility] ([facility]), [address], [address] [place] [address] 05/31 CBC w/ auto diff RBC 10*6/u L 4.63 6.08 5.01 FINAL Marcelo Mahmoods B&Whole Blood [facility] ([facility]), [address], [address] [place] [address] 05/31 CBC w/ auto diff HGB g/dL 13.7 17.5 16.4 FINAL Marcelo Mahmoods B&Whole Blood [facility] ([facility]), [address], [address] [place] [address] 05/31 CBC w/ auto diff HCT % 40.1 51.0 47.5 FINAL Marcelo Mahmoods B&Whole Blood [facility] ([facility]), [address], [address] [place] [address] 05/31 CBC w/ auto diff MCV fL 79.0 92.2 94.8 High FINAL Marcelo Mahmoods B&Whole Blood [facility] ([facility]), [address], [address] [place] [address] 05/31 CBC w/ auto diff MCH pg 25.7 32.2 32.7 High FINAL [facility] B&Whole Blood Formerly [facility] ([facility]), [address], [address] [place] [address] 05/31 CBC w/ auto diff MCHC g/dL 32.3 36.5 34.5 FINAL Marcelo Mahmoods B&Whole Blood Former[facility] ([facility]), [address], [address] [place] [address] 05/31 CBC w/ auto diff RDW-C V, % % 11.6 14.4 13.8 FINAL Marcelo Mahmoods B&Whole Blood Former[facility] ([facility]), [address], [address] [place] [address] 05/31 CBC w/ auto diff PLT 10*3/u L 163.0 337.0 161.0 Low FINAL Marcelo Mahmoods B&Whole Blood [facility] ([facility]), [address], [address] [place] [address] 06/21 CBC w/ auto diff WBC 10*3/u L 4.2 9.1 14.1 High FINAL Marcelo [facility] ([facility]), [address], [address] [place] [address] 06/21 CBC w/ auto diff Cristobal # (ANC) 10*3/u L 1.78 5.38 10.63 High FINAL Marcelo [facility] ([facility]), [address], [address] [place] [address] 06/21 CBC w/ auto diff LY # 10*3/u L 1.32 3.57 2.09 FINAL Marcelo [facility] ([facility]), [address], [address] [place] [address] 06/21 CBC w/ auto diff MO # 10*3/u L 0.3 0.82 1.34 High FINAL Marcelo [facility] ([facility]), [address], [address] [place] [address] 06/21 CBC w/ auto diff EO # 10*3/u lL 0.04 0.54 0.03 Low FINAL Marcelo [facility] ([facility]), [address], [address] [place] [address] 06/21 CBC w/ auto diff BA # 10*3/u L 0.01 0.08 0.02 FINAL Marcelo [facility] ([facility]), [address], [address] [place] [address] 06/21 CBC w/ auto diff Cristobal % % 34.0 67.9 75.4 High FINAL Marcelo [facility] ([facility]), [address], [address] [place] [address] 06/21 CBC w/ auto diff LY % % 21.8 53.1 14.8 Low FINAL Marcelo [facility] ([facility]), [address], [address] [place] [address] 06/21 CBC w/ auto diff MO % % 5.3 12.2 9.5 FINAL Marcelo [facility] ([facility]), [address], [address] [place] [address] 06/21 CBC w/ auto diff EO % % 0.8 7.0 0.2 Low FINAL [facility] ([facility]), [address], [address] [place] [address] 06/21 CBC w/ auto diff BA % % 0.2 1.2 0.1 Low FINAL [facility] ([facility]), [address], [address] [place] [address] 06/21 CBC w/ auto diff RBC 10*6/u L 4.63 6.08 4.90 FINAL [facility] ([facility]), [address], [address] [place] [address] 06/21 CBC w/ auto diff HGB g/dL 13.7 17.5 16.0 FINAL [facility] ([facility]), [address], [address] [place] [address] 06/21 CBC w/ auto diff HCT % 40.1 51.0 47.5 FINAL [facility] ([facility]), [address], [address] [place] [address] 06/21 CBC w/ auto diff MCV fL 79.0 92.2 96.9 High FINAL [facility] ([facility]), [address], [address] [place] [address] 06/21 CBC w/ auto diff MCH pg 25.7 32.2 32.7 High FINAL [facility] ([facility]), [address], [address] [place] [address] 06/21 CBC w/ auto diff MCHC g/dL 32.3 36.5 33.7 FINAL [facility] ([facility]), [address], [address] [place] [address] 06/21 CBC w/ auto diff RDW-C V, % % 11.6 14.4 14.0 FINAL [facility] ([facility]), [address], [address] [place] [address] 06/21 CBC w/ auto diff PLT 10*3/u L 163.0 337.0 185.0 FINAL Marcelo Olson [facility] ([facility]), [address], [address] [facility] [address] 07/23 Lab Repor t See pattern maker d Medications Date Name Route Dose [...] Oral orally 5000.0 mcg daily active 12/22 [place] 3-DHA-E PA-Fish Oil Oral Liquid 1,600 mg-500 [...] Nurse Note Print Location: Unknown Date/Time Printed: 11/16/2025 06:07 ([facility]) Patient: VALERIE PUENTES Sex: [...] Selected Billing Code(s): PHLEBOTOMY THERAPEUTIC SEPARATE PROCEDURE (14700) Entered By Barbara Casas RN; Incident to Marcelo Olson MD * Nurse Note for: 09-NOV-19 [facility] Nurse Note Print Location: Unknown Date/Time Printed: 11/16/2025 06:07 ([facility]) Patient: VALERIE PUENTES Sex: [...] Selected Billing Code(s): PHLEBOTOMY THERAPEUTIC SEPARATE PROCEDURE (66204) Entered By Ju Gupta RN; Incident to Marcelo Olson MD * Nurse Note for: 20-JUL-19 [facility] Nurse Note Print Location: Unknown Date/Time Printed: 11/16/2025 06:07 ([facility]) Patient: VALERIE PUENTES Sex: [...] Selected Billing Code(s): PHLEBOTOMY THERAPEUTIC SEPARATE PROCEDURE (28629) Entered By Barbara Garcia RN; Incident to Marcelo Olson MD
--- OUTSIDE RECORDS SUMMARY | 2025-11-16 06:07 | XMS_ITS ---
Author Name Interface, B3Dnptuaa lity Address [address] [place] [address] Organization [facility] Address [address] [place] [address] Allergies and Adverse Reactions Medication/Group Name Reaction [...] FINAL Marcelo Olson B&Whole Blood [facility] ([facility]), [address], [address] [place] [address] 02/15 CBC w/ auto diff Cristobal # (ANC) 10*3/u L 1.78 5.38 4.12 FINAL Marcelo Olson B&Whole Blood [facility] ([facility]), [address], [address] [place] [address] 02/15 CBC w/ auto diff LY # 10*3/u L 1.32 3.57 3.32 FINAL Marcelo Olson B&Whole Blood [facility] ([facility]), [address], [address] [place] [address] 02/15 CBC w/ auto diff MO # 10*3/u L 0.3 0.82 0.96 High FINAL Marcelo Olson B&Whole Blood [facility] ([facility]), [address], [address] [place] [address] 02/15 CBC w/ auto diff EO # 10*3/u lL 0.04 0.54 0.36 FINAL Marcelo Olson B&Whole Blood [facility] ([facility]), [address], [address] [place] [address] 02/15 CBC w/ auto diff BA # 10*3/u L 0.01 0.08 0.04 FINAL Marcelo Olson B&Whole Blood [facility] ([facility]), [address], [address] [place] [address] 02/15 CBC w/ auto diff Cristobal % % 34.0 67.9 46.8 FINAL Marcelo Olson B&Whole Blood [facility] ([facility]), [address], [address] [place] [address] 02/15 CBC w/ auto diff LY % % 21.8 53.1 37.7 FINAL Marcelo Mahmoods B&Whole Blood [facility] ([facility]), [address], Suite [facility] [place] [address] 02/15 CBC w/ auto diff MO % % 5.3 12.2 10.9 FINAL Marcelo Mahmoods B&Whole Blood [facility] ([facility]), [address], [address] [facility] [place] [address] 02/15 CBC w/ auto diff EO % % 0.8 7.0 4.1 FINAL Marcelo Olson B&Whole Blood [facility] ([facility]), [address], [address] [facility] [place] [facility] 02/15 CBC w/ auto diff BA % % 0.2 1.2 0.5 FINAL Marcelo Mahmoods B&Whole Blood [facility] (T), [address], [address] [facility] [place] [facility] 02/15 CBC w/ auto diff RBC 10*6/u L 4.63 6.08 5.33 FINAL Marcelo Mahmoods B&Whole Blood [facility] (T), [address], [address] [facility] [place] [facility] 02/15 CBC w/ auto diff HGB g/dL 13.7 17.5 17.4 FINAL Marcelo Olson B&Whole Blood [facility] (T), [address], [address] [facility] [place] [facility] 02/15 CBC w/ auto diff HCT % 40.1 51.0 50.4 FINAL Marcelo Mahmoods B&Whole Blood [facility] (T), [address], [address] [facility] [place] [facility] 02/15 CBC w/ auto diff MCV fL 79.0 92.2 94.6 High FINAL Marcelo Mahmoods B&Whole Blood [facility] ([facility]), [address], [address] [facility] [place] [address] 02/15 CBC w/ auto diff MCH pg 25.7 32.2 32.6 High FINAL Marcelo Mahmoods B&Whole Blood [facility] ([facility]), [address], [address] [facility] [place] [address] 02/15 CBC w/ auto diff MCHC g/dL 32.3 36.5 34.5 FINAL Marcelo Mahmoods B&Whole Blood [facility] ([facility]), [address], [address] [place] [address] 02/15 CBC w/ auto diff RDW-C V, % % 11.6 14.4 14.0 FINAL Marcelo Mahmoods B&Whole Blood [facility] (T), [address], [address] [place] [address] 02/15 CBC w/ auto diff PLT 10*3/u L 163.0 337.0 172.0 FINAL Marcelo Mahmoods B&Whole Blood [facility] ([facility]), [address], [address] [place] [address] 05/31 CBC w/ auto diff WBC 10*3/u L 4.2 9.1 10.4 High FINAL Marcelo Mahmoods B&Whole Blood [facility] ([facility]), [address], [address] [place] [address] 05/31 CBC w/ auto diff Cristobal # (ANC) 10*3/u L 1.78 5.38 5.26 FINAL Marcelo Mahmoods B&Whole Blood [facility] ([facility]), [address], [address] [place] [address] 05/31 CBC w/ auto diff LY # 10*3/u L 1.32 3.57 3.84 High FINAL Marcelo Mahmoods B&Whole Blood [facility] ([facility]), [address], [address] [place] [address] 05/31 CBC w/ auto diff MO # 10*3/u L 0.3 0.82 0.94 High FINAL Marcelo Mahmoods B&Whole Blood [facility] ([facility]), [address], [address] [place] [address] 05/31 CBC w/ auto diff EO # 10*3/u lL 0.04 0.54 0.30 FINAL Marcelo Mahmoods B&Whole Blood [facility] ([facility]), [address], [address] [place] [address] 05/31 CBC w/ auto diff BA # 10*3/u L 0.01 0.08 0.03 FINAL Marcelo Herms B&Whole Blood [facility] ([facility]), [address], [address] [place] [address] 05/31 CBC w/ auto diff Cristobal % % 34.0 67.9 50.7 FINAL Marcelo Herms B&Whole Blood [facility] (T), [address], [address] [facility] [place] [facility] 05/31 CBC w/ auto diff LY % % 21.8 53.1 37.0 FINAL Marcelo Olson B&Whole Blood [facility] (T), [address], [address] [place] [address] 05/31 CBC w/ auto diff MO % % 5.3 12.2 9.1 FINAL Marcelo Olson B&Whole Blood [facility] (T), [address], [address] [place] [address] 05/31 CBC w/ auto diff EO % % 0.8 7.0 2.9 FINAL Marcelo Olson B&Whole Blood [facility] (T), [address], [address] [place] [address] 05/31 CBC w/ auto diff BA % % 0.2 1.2 0.3 FINAL Marcelo Olson B&Whole Blood [facility] (T), [address], [address] [place] [address] 05/31 CBC w/ auto diff RBC 10*6/u L 4.63 6.08 5.01 FINAL Marcelo Olson B&Whole Blood [facility] (T), [address], [address] [place] [address] 05/31 CBC w/ auto diff HGB g/dL 13.7 17.5 16.4 FINAL Marcelo Olson B&Whole Blood [facility] (T), [address], [address] [place] [address] 05/31 CBC w/ auto diff HCT % 40.1 51.0 47.5 FINAL Marcelo Olson B&Whole Blood [facility] (T), [address], [address] [place] [address] 05/31 CBC w/ auto diff MCV fL 79.0 92.2 94.8 High FINAL Marcelo Olson B&Whole Blood [facility] (T), [address], [address] [place] [address] 05/31 CBC w/ auto diff MCH pg 25.7 32.2 32.7 High FINAL Marcelo Olson B&Whole Blood [facility] (T), [address], [address] [place] [address] 05/31 CBC w/ auto diff MCHC g/dL 32.3 36.5 34.5 FINAL Marcelo [facility] B&Whole Blood [facility] ([facility]), [address], [address] [place] [address] 05/31 CBC w/ auto diff RDW-C V, % % 11.6 14.4 13.8 FINAL Marcelo [facility] B&Whole Blood [facility] ([facility]), [address], [address] [place] [address] 05/31 CBC w/ auto diff PLT 10*3/u L 163.0 337.0 161.0 Low FINAL [facility] B&Whole Blood [facility] ([facility]), [address], [address] [place] [address] 06/21 CBC w/ auto diff WBC 10*3/u L 4.2 9.1 14.1 High FINAL [facility] (T), [address], [address] [place] [address] 06/21 CBC w/ auto diff Cristobal # (ANC) 10*3/u L 1.78 5.38 10.63 High FINAL [facility] (T), [address], [address] [place] [address] 06/21 CBC w/ auto diff LY # 10*3/u L 1.32 3.57 2.09 FINAL [facility] (T), [address], [address] [place], [place] [id number] 06/21 CBC w/ auto diff MO # 10*3/u L 0.3 0.82 1.34 High FINAL [facility] ([facility]), [address], [address] [place], [place] [id number] 06/21 CBC w/ auto diff EO # 10*3/u lL 0.04 0.54 0.03 Low FINAL [facility] ([facility]), [address], [address] [facility] [address] 06/21 CBC w/ auto diff BA # 10*3/u L 0.01 0.08 0.02 FINAL [facility] ([facility]), [address], [address] [place] [address] 06/21 CBC w/ auto diff Cristobal % % 34.0 67.9 75.4 High FINAL Marcelo [facility] ([facility]), [address], [address] [place] [address] 06/21 CBC w/ auto diff LY % % 21.8 53.1 14.8 Low FINAL Marcelo [facility] ([facility]), [address], [address] [place] [address] 06/21 CBC w/ auto diff MO % % 5.3 12.2 9.5 FINAL Marcelo [facility] ([facility]), [address], [address] [place] [address] 06/21 CBC w/ auto diff EO % % 0.8 7.0 0.2 Low FINAL Marcelo [facility] ([facility]), [address], [address] [place] [address] 06/21 CBC w/ auto diff BA % % 0.2 1.2 0.1 Low FINAL Marcelo [facility] ([facility]), [address], [address] [place] [address] 06/21 CBC w/ auto diff RBC 10*6/u L 4.63 6.08 4.90 FINAL Marcelo [facility] ([facility]), [address], [address] [place] [address] 06/21 CBC w/ auto diff HGB g/dL 13.7 17.5 16.0 FINAL Marcelo [facility] ([facility]), [address], [address] [place] [address] 06/21 CBC w/ auto diff HCT % 40.1 51.0 47.5 FINAL Marcelo [facility] ([facility]), [address], [address] [place] [address] 06/21 CBC w/ auto diff MCV fL 79.0 92.2 96.9 High FINAL Marcelo [facility] ([facility]), [address], [address] [place] [address] 06/21 CBC w/ auto diff MCH pg 25.7 32.2 32.7 High FINAL [facility] ([facility]), [address], [address] [facility] [address] 06/21 CBC w/ auto diff MCHC g/dL 32.3 36.5 33.7 FINAL [facility] (T), [address], [address] [facility] [address] 06/21 CBC w/ auto diff RDW-C V, % % 11.6 14.4 14.0 FINAL [facility] (T), [address], [address] [facility] [address] 06/21 CBC w/ auto diff PLT 10*3/u L 163.0 337.0 185.0 FINAL [facility] ([facility]), [address], [address] [facility] [address] 07/23 Lab Repor t See retail manager d Medications Date Name Route Dose [...] Oral orally 5000.0 mcg daily active 12/22 Brunson 3-DHA-E PA-Fish Oil Oral Liquid 1,600 mg-500 mg-800 mg/5 mL orally daily active 12/22 Bisopro lol Oral orally 5.0 mg daily active 12/22 Empagli flozin Oral orally 25.0 mg daily active 12/22 Atorvas tatin Oral orally 40.0 mg daily active 12/22 Gabapen tin Oral orally 1.0 tablet 2 times per day active 12/22 Loratad ine Oral orally 10.0 mg daily active 12/22 Lisinop ril Oral orally 25.0 mg daily active 02/15 Ranolaz ine Oral 12 hr Tab twice daily active 12/22 Clopido grel Oral orally 75.0 mg daily active 07/20 Choleca lcifero l [...] Temperature 98.00 05/31/2020 Heart Beat 72.00 06/21/2021 Intravascular Systolic 120 06/21/2021 Intravascular Diastolic 70 06/21/2021 Body Temperature 97.20 06/21/2021 Heart Beat 72.00 06/21/2021 Respiratory Rate 10.00 06/21/2021 BSA 1.95 06/21/2021 Weight 170.20 06/21/2021 Height 69.50 06/21/2021 BMI 24.77 06/21/2021 Pain Scale 0.00 Notes Section * Nurse Note for: 16-FEB-20 [facility] Nurse Note Print Location: Unknown Date/Time Printed: 11/16/2025 06:07 (Lauren/[facility]) Patient: VALERIE PUENTES Sex: [...] Selected Billing Code(s): PHLEBOTOMY THERAPEUTIC SEPARATE PROCEDURE (67051) Entered By Barbara Casas RN; Incident to Marcelo Olson MD
--- OUTSIDE RECORDS SUMMARY | 2025-11-16 06:08 | XMS_ITS | Clinical Summary ---
Author Organization [facility] Address [address] [place] [address] Care Team Providers Care Outside Plant Technician Name Role Phone Unavailable Primary Care Provider Unavailabl e Source Comments [facility] is fully rolled out with thefollowing exceptions:General Clinical Research [facility] Social History Tobacco Use Types Packs/Day Years [...] 1959 DTAP/Tdap/Td IMMUNIZATION (1 - Tdap) 1965 Yearly Physical Ages 3-18+ 1969 VARICELLA IMMUNIZATION (1 of 2 - 13+ 2-dose series) 1971 AMB SEASONAL FLU VACCINE (#1) 07/31/2025 COVID-19 Vaccine (1 - 2024-2 6 season) 2025 Respiratory Syncytial [...] complete this topic Insurance DARVIN GARCIA NON-TRADITIONAL * Guarantor: Oleksandr Fernandez Account Type Relation to Patient Date of Phone Billing Address [facility] Reference Lab Self 1960 [address] [place] [address] DARVIN GARCIA NON-TRADITIONAL
--- OUTSIDE RECORDS SUMMARY | 2025-11-16 06:08 | XMS_ITS ---
Author Name Interface, [id number] lity Address [address] [place] [address] Organization [facility] Address [address] [place] [address] Allergies and Adverse Reactions Medication/Group Name Reaction [...] FINAL Marcelo Olson B&Whole Blood [facility] ([facility]), [address], [address] [place] [address] 02/15 CBC w/ auto diff Cristobal # (ANC) 10*3/u L 1.78 5.38 4.12 FINAL Marcelo Olson B&Whole Blood [facility] ([facility]), [address] [address] [place] [address] 02/15 CBC w/ auto diff LY # 10*3/u L 1.32 3.57 3.32 FINAL Marcelo Olson B&Whole Blood [facility] ([facility]), [address], [address] [place] [address] 02/15 CBC w/ auto diff MO # 10*3/u L 0.3 0.82 0.96 High FINAL Marcelo Olson B&Whole Blood [facility] ([facility]), [address], [address] [place] [address] 02/15 CBC w/ auto diff EO # 10*3/u lL 0.04 0.54 0.36 FINAL Marcelo Olson B&Whole Blood [facility] ([facility]), [address], [address] [place] [address] 02/15 CBC w/ auto diff BA # 10*3/u L 0.01 0.08 0.04 FINAL Marcelo Olson B&Whole Blood [facility] ([facility]), [address], [address] [place] [address] 02/15 CBC w/ auto diff Cristobal % % 34.0 67.9 46.8 FINAL Marcelo Olson B&Whole Blood [facility] ([facility]), [address], [address] [place] [address] 02/15 CBC w/ auto diff LY % % 21.8 53.1 37.7 FINAL Marcelo Olson B&Whole Blood [facility] (T), [address], [place] [address] 02/15 CBC w/ auto diff MO % % 5.3 12.2 10.9 FINAL Marcelo Olson B&Whole Blood [facility] (T), [address], [address] [facility] [place] [facility] 02/15 CBC w/ auto diff EO % % 0.8 7.0 4.1 FINAL Marcelo Olson B&Whole Blood [facility] (T), [address], [address] [facility] [place] [facility] 02/15 CBC w/ auto diff BA % % 0.2 1.2 0.5 FINAL Marcelo Olson B&Whole Blood [facility] ([facility]), [address], [address] [facility] [place] [facility] 02/15 CBC w/ auto diff RBC 10*6/u L 4.63 6.08 5.33 FINAL Marcelo Olson B&Whole Blood [facility] ([facility]), [address], [address] [facility] [place] [facility] 02/15 CBC w/ auto diff HGB g/dL 13.7 17.5 17.4 FINAL Marcelo Olson B&Whole Blood [facility] (T), [address], [address] [place] [address] 02/15 CBC w/ auto diff HCT % 40.1 51.0 50.4 FINAL Marcelo Olson B&Whole Blood [facility] (T), [address], [address] [facility] [place] [facility] 02/15 CBC w/ auto diff MCV fL 79.0 92.2 94.6 High FINAL Marcelo Olson B&Whole Blood [facility] ([facility]), [address], [address] [facility] [place] [facility] 02/15 CBC w/ auto diff MCH pg 25.7 32.2 32.6 High FINAL Marcelo Olson B&Whole Blood [facility] (T), [address], [address] [facility] [place] [facility] 02/15 CBC w/ auto diff MCHC g/dL 32.3 36.5 34.5 FINAL Marcelo Mahmoods B&Whole Blood [facility] (T), [address], [address] [facility] [place] [address] 02/15 CBC w/ auto diff RDW-C V, % % 11.6 14.4 14.0 FINAL Marcelo Mahmoods B&Whole Blood [facility] (T), [address], [address] [place] [address] 02/15 CBC w/ auto diff PLT 10*3/u L 163.0 337.0 172.0 FINAL Marcelo Mahmoods B&Whole Blood [facility] ([facility]), [address], [address] [place] [address] 05/31 CBC w/ auto diff WBC 10*3/u L 4.2 9.1 10.4 High FINAL Marcelo Herms B&Whole Blood [facility] (T), [address], [address] [place] [address] 05/31 CBC w/ auto diff Cristobal # (ANC) 10*3/u L 1.78 5.38 5.26 FINAL Marcelo Mahmoods B&Whole Blood [facility] ([facility]), [address], [address] [place] [address] 05/31 CBC w/ auto diff LY # 10*3/u L 1.32 3.57 3.84 High FINAL Marcelo Mahmoods B&Whole Blood [facility] ([facility]), [address], [address] [place] [address] 05/31 CBC w/ auto diff MO # 10*3/u L 0.3 0.82 0.94 High FINAL Marcelo Herms B&Whole Blood [facility] ([facility]), [address], [address] [place] [address] 05/31 CBC w/ auto diff EO # 10*3/u lL 0.04 0.54 0.30 FINAL Marcelo Herms B&Whole Blood [facility] ([facility]), [address], [address] [place] [address] 05/31 CBC w/ auto diff BA # 10*3/u L 0.01 0.08 0.03 FINAL Marcelo Herms B&Whole Blood [facility] ([facility]), [address], [address] [place] [address] 05/31 CBC w/ auto diff Cristobal % % 34.0 67.9 50.7 FINAL Marcelo Herms B&Whole Blood [facility] ([facility]), [address], [place] [address] 05/31 CBC w/ auto diff LY % % 21.8 53.1 37.0 FINAL Marcelo Olson B&Whole Blood [facility] ([facility]), [address], [address] [facility] [place] [facility] 05/31 CBC w/ auto diff MO % % 5.3 12.2 9.1 FINAL Marcelo Olson B&Whole Blood [facility] ([facility]), [address], [address] [facility] [place] [facility] 05/31 CBC w/ auto diff EO % % 0.8 7.0 2.9 FINAL Marcelo Olson B&Whole Blood [facility] ([facility]), [address], [address] [place] [address] 05/31 CBC w/ auto diff BA % % 0.2 1.2 0.3 FINAL Marcelo Olson B&Whole Blood [facility] (T), [address], [address] [place] [address] 05/31 CBC w/ auto diff RBC 10*6/u L 4.63 6.08 5.01 FINAL Marcelo Olson B&Whole Blood [facility] (T), [address], [address] [place] [address] 05/31 CBC w/ auto diff HGB g/dL 13.7 17.5 16.4 FINAL Marcelo Olson B&Whole Blood [facility] ([facility]), [address], [address] [place] [address] 05/31 CBC w/ auto diff HCT % 40.1 51.0 47.5 FINAL Marcelo Olson B&Whole Blood [facility] ([facility]), [address], [address] [place] [address] 05/31 CBC w/ auto diff MCV fL 79.0 92.2 94.8 High FINAL Marcelo Mahmoods B&Whole Blood [facility] ([facility]), [address], [address] [place] [address] 05/31 CBC w/ auto diff MCH pg 25.7 32.2 32.7 High FINAL Marcelo Mahmoods B&Whole Blood [facility] ([facility]), [address], [address] [place] [address] 05/31 CBC w/ auto diff MCHC g/dL 32.3 36.5 34.5 FINAL [facility] B&Whole Blood [facility] (T), [address], [address] [place] [address] 05/31 CBC w/ auto diff RDW-C V, % % 11.6 14.4 13.8 FINAL [facility] B&Whole Blood [facility] (T), [address], [address] [place] [address] 05/31 CBC w/ auto diff PLT 10*3/u L 163.0 337.0 161.0 Low FINAL [facility] B&Whole Blood [facility] ([facility]), [address], [address] [place] [address] 06/21 CBC w/ auto diff WBC 10*3/u L 4.2 9.1 14.1 High FINAL [facility] ([facility]), [address], [address] [place] [address] 06/21 CBC w/ auto diff Cristobal # (ANC) 10*3/u L 1.78 5.38 10.63 High FINAL [facility] ([facility]), [address], [address] [place] [address] 06/21 CBC w/ auto diff LY # 10*3/u L 1.32 3.57 2.09 FINAL [facility] ([facility]), [address], [address] [place] [address] 06/21 CBC w/ auto diff MO # 10*3/u L 0.3 0.82 1.34 High FINAL [facility] ([facility]), [address], [address] [place] [address] 06/21 CBC w/ auto diff EO # 10*3/u lL 0.04 0.54 0.03 Low FINAL [facility] ([facility]), [address], [address] [place] [address] 06/21 CBC w/ auto diff BA # 10*3/u L 0.01 0.08 0.02 FINAL [facility] ([facility]), [address], [address] [place] [address] 06/21 CBC w/ auto diff Cristobal % % 34.0 67.9 75.4 High FINAL [facility] ([facility]), [address], [address] [place] [address] 06/21 CBC w/ auto diff LY % % 21.8 53.1 14.8 Low FINAL [facility] ([facility]), [address], [address] [place] [address] 06/21 CBC w/ auto diff MO % % 5.3 12.2 9.5 FINAL [facility] ([facility]), [address], [address] [place] [address] 06/21 CBC w/ auto diff EO % % 0.8 7.0 0.2 Low FINAL [facility] ([facility]), [address], [address] [place] [address] 06/21 CBC w/ auto diff BA % % 0.2 1.2 0.1 Low FINAL [facility] ([facility]), [address], [address] [place] [address] 06/21 CBC w/ auto diff RBC 10*6/u L 4.63 6.08 4.90 FINAL [facility] ([facility]), [address], [address] [place] [address] 06/21 CBC w/ auto diff HGB g/dL 13.7 17.5 16.0 FINAL [facility] ([facility]), [address], [address] [place] [address] 06/21 CBC w/ auto diff HCT % 40.1 51.0 47.5 FINAL [facility] ([facility]), [address], [address] [place] [address] 06/21 CBC w/ auto diff MCV fL 79.0 92.2 96.9 High FINAL [facility] ([facility]), [address], [address] [place] [address] 06/21 CBC w/ auto diff MCH pg 25.7 32.2 32.7 High FINAL [facility] ([facility]), [address], [address] [facility] [address] 06/21 CBC w/ auto diff MCHC g/dL 32.3 36.5 33.7 FINAL [facility] ([facility]), [address], [address] [facility] [address] 06/21 CBC w/ auto diff RDW-C V, % % 11.6 14.4 14.0 FINAL [facility] ([facility]), [address], [address] [facility] [address] 06/21 CBC w/ auto diff PLT 10*3/u L 163.0 337.0 185.0 FINAL [facility] ([facility]), [address], [address] [facility] [address] 07/23 Lab Repor t See customer relations advisor d Medications Date Name Route Dose Frequency Instructions Start Date End Date Status Fill Status Indication 12/22 Sitagli ptin-Me tformin Oral 50 mg-1,00 0 mg orally 1.0 2 times per day active 12/22 Aspirin Oral orally 81.0 mg daily active 12/22 Insulin Detemir Subcuta neous 100 unit/mL subcutan eously 36.0 every evening active 12/22 Cyanoco balamin Oral orally 5000.0 mcg daily active 12/22 [place] 3-DHA-E PA-Fish Oil Oral Liquid 1,600 mg-500 [...] Print Location: Unknown Date/Time Printed: 11/16/2025 06:07 ([facility]) Patient: VALERIE PUENTES Sex: Male [...] Selected Billing Code(s): PHLEBOTOMY THERAPEUTIC SEPARATE PROCEDURE (63353) Entered By Barbara Casas RN; Incident to Marcelo Olson MD
--- OUTSIDE RECORDS SUMMARY | 2025-11-16 06:08 | XMS_ITS | CCD ---
Author Name Interface, [id number] lity Address [address] [id number] Organization [facility] Address [address] [place] [id number] Care Team Providers Care Registered Phlebotomist Part Time Name Role Phone Whitney HUGHES, Marcelo Munguia [...] Oral orally 75.0 mg daily active 12/22 Bisopro lol Oral orally 5.0 mg daily active 12/22 Atorvas tatin Oral orally 40.0 mg daily active 07/20 Choleca lcifero l Oral orally 2000.0 unit daily active 02/15 Ranolaz ine Oral 12 hr Tab twice daily active 12/22 Lisinop ril Oral orally 25.0 mg daily active 12/22 Gabapen tin Oral orally 1.0 tablet 2 times per day active 12/22 Loratad ine Oral orally 10.0 mg daily active 12/22 Empagli flozin Oral orally 25.0 mg daily active 12/22 [place] 3-DHA-E PA-Fish Oil Oral Liquid 1,600 mg-500 mg-800 mg/5 mL orally daily active 12/22 Acetami nophen Oral orally 650.0 mg every 4 hours prn pain stopped 12/22 Aspirin Oral orally 81.0 mg daily active 12/22 Cyanoco balamin Oral orally 5000.0 mcg daily active 12/22 Sitagli ptin-Me tformin Oral 50 mg-1,00 0 mg orally 1.0 2 times per day active Problems Diagnosis Status Date of Diagnosis Resolution Date Leukocytosis (disorder) Active Tobacco abuse Active History of blood disorder (situation) Active Diabetes Active Secondary polycythemia Active Arthritis (disorder) Active High cholesterol Active Seasonal allergy Active Migraine headache Active Social History Date Name Value 12/30/2018 Sex Male
--- OUTSIDE RECORDS SUMMARY | 2025-11-16 06:08 | XMS_ITS | Data Portability ---
Author Organization [facility] Address [address] [place] [address] Care Team Providers Care Medical Front Desk Specialist Name Role Phone RAFAEL HUNT Referring Provider [phone] Paresh LINDER Referring Provider [phone] Assessment Encounter Date Assessment Date Assessment LastModified by Organization Details LastModified Time 05/06/2024 05/06/2024 again refuses colon cancer screening in any form Controlled drug contract reviewed and signed 08/19/22 UDS 08/19/22, 06/26/23, 01/21/24 [email or web address] Not available 04/17/2024 19:10:47 08/19/2024 08/19/2024 again refuses colon cancer screening in any form Controlled drug contract reviewed and signed 08/19/22 UDS 08/19/22, 06/26/23, 01/21/24, today [email or web address] Not available 07/29/2024 12:57:26 03/17/2025 03/17/2025 again refuses colon cancer screening in any form Controlled drug contract reviewed and signed 08/19/22 UDS 08/19/22, 06/26/23, 01/21/24, 08/19/24, today [email or web address] Not available 03/05/2025 17:16:00 08/04/2025 08/04/2025 again refuses colon cancer screening in any form Controlled drug contract reviewed and signed 08/19/22 UDS 08/19/22, 06/26/23, 01/21/24, 08/19/24, 03/17/25, today [email or web address] Not available 06/29/2025 09:12:12 Plan of Treatment Reminders Order Date Submit Date Provider Last Modified By Organization Details Last Modified Time Details Appointments Establish ed Patient 20 2024 04:00P M Chandni Keller MD Not available Not available Not available Lab unlisted lab - complianc e drug citlalli, no THC 2024 [place] [facility], [address], [address], [place], [address], 08/10/2025 10:14:21 microalbu min/creat inine, mass ratio, urine 2024 [facility], [address], [place], [address], 08/04/2025 14:38:33 urinalysi s, dipstick 2024 025 [facility], [address], [place], [address], 08/04/2025 14:37:23 HbA1c (hemoglob in A1c), blood 2024 025 [facility], [address], [address], [place], [address], 08/05/2025 10:11:05 lipid panel, serum 2024 025 [facility], [address], [address], [place], [address], 08/05/2025 10:11:04 glucose, fingersti ck, blood 2024 025 [facility], [address], [place], [address], 08/04/2025 08:59:31 CMP, serum or plasma 2024 025 [facility], [address], [address], [place], [address], 08/05/2025 10:11:04 vitamin D, 25-hydrox y, total, serum 2024 025 [facility], [address], [address], [place], [address], 08/05/2025 10:11:05 unlisted lab - complianc e drug citlalli, no THC 2024 025 [facility], [address], [address], [place], [address], 03/24/2025 16:28:43 microalbu min/creat inine, mass ratio, urine 2024 025 [facility], [address], [place], [address], 03/17/2025 10:18:15 urinalysi s, dipstick 2024 025 [facility], [address], [place], [address], 03/17/2025 10:58:28 HbA1c (hemoglob in A1c), blood 2024 025 [facility], [address], [address], [place], [address], 03/18/2025 08:52:39 CMP, serum or plasma 2024 025 [facility], [address], [address], [place], [address], 03/18/2025 08:52:38 lipid panel, serum 2024 025 [facility], [address], [address], [place], [address], 03/18/2025 08:52:38 CBC w/ auto diff 2024 025 [facility], [address], [place] [address], [place], [address], 03/18/2025 08:52:37 vitamin D, 25-hydrox y, total, serum 2024 025 [email or web address], [address], [address], [place], [address], 03/28/2025 17:01:43 PSA, total, serum or plasma 2024 025 [facility], [address], [address], [place], [address], 03/18/2025 08:52:39 HbA1c (hemoglob in A1c), blood 2023 024 [facility], [address], [address], [place], [address], 08/20/2024 08:28:13 CMP, serum or plasma 2023 024 [facility], [address], [address], [place], [address], 08/20/2024 08:28:12 lipid panel, serum 2023 024 [facility], [address], [address], [place], [address], 08/20/2024 08:28:12 unlisted lab - complianc e drug citlalli, no THC 2023 024 [facility], [address], [address], [place], [address], 08/25/2024 16:14:02 HbA1c (hemoglob in A1c), blood 2023 024 [email or web address] [facility], [address] [place] [address] [place], [address], 05/06/2024 10:22:40 Referral cardiolog ist referral 2024 025 [facility] Hunt MD, [address], [place], [address], 04/20/2025 16:48:47 diabetic ophthalmo logy referral 2023 024 [facility] Srivastava MD, [address] [facility] , [place], [address], 09/26/2024 11:34:20 Procedures None recorded. Surgeries None recorded. Imaging XR, lumbosacr al spine, 2 or 3 view 2024 025 [place] [address] [facility] [address] [place] [address] [place], [address], 08/24/2025 10:30:34 LDCT, chest, for lung cancer screening 2024 025 [facility] [address] [place] [address] , [place], [address], 05/24/2025 16:32:51 Medication Orders cetirizin e 10 mg tablet 2024 025 [facility], [address] [place] [address], [address], 03/17/2025 10:13:[address] 10 mg tablet [address], [address], 03/17/2025 10:13:21 atorvasta tin 40 mg tablet [address], [address], 03/17/2025 10:13:24 Glucose Gel 40 % oral gel [address], [address], 03/17/2025 10:13:22 cyclobenz aprine 10 mg tablet [address], [address], 08/04/2025 12:16:17 bisoprolo l fumarate 5 mg tablet [address], [address], 03/17/2025 10:13:20 gabapenti n 600 mg tablet [address], [address], 03/17/2025 10:13:24 losartan 50 mg tablet [address], [address], 03/17/2025 10:23:17 Celebrex 200 mg capsule [address], [address], 03/17/2025 10:13:23 Janumet 50 mg-1,000 mg tablet [address], [address], 10/16/2025 08:13:52 Jardiance 25 mg tablet [address], [address], 03/17/2025 10:13:21 Levemir FlexPen 100 unit/mL (3 mL) solution subcutane ous insulin pen [address], [address], 12/02/2024 12:49:07 gabapenti n 600 mg tablet [address], [address], 08/19/2024 08:34:14 cyclobenz aprine 10 mg tablet [address]23 [email or web address], [address], 08/04/2025 08:39:45 atorvasta tin 40 mg tablet [address], [address], 05/06/2024 10:22:36 Jardiance 25 mg tablet [address], [address], 05/06/2024 10:22:38 Janumet 50 mg-1,000 mg tablet 2023 [email or web address], [address], 10/13/2025 15:44:56 Glucose Gel 40 % oral gel [address], [address], 05/06/2024 10:22:39 cyclobenz aprine 10 mg tablet 2023 [address], [address], 08/04/2025 08:39:45 benzonata te 200 mg capsule [email or web address], [address], 04/17/2024 19:04:58 Zithromax Z-Thai 250 mg tablet 2023 [email or web address], [address], 04/17/2024 19:05:07 Patient TargetsNo targets recorded. Patient Instructions Encounter Date Encounter Id Patient Instructions Last Modified By Organization Details Last Modified Time 01/27/2024 [id number] body mass index: care instructions [email or web address] Not available 01/27/2024 11:18:49 Bronchitis Take medications as prescribed. - You should go to the emergency room if: - You have severe trouble breathing. - You have new or worse trouble breathing. - You cough up dark brown or bloody mucus (sputum). - You have a new or higher fever. - You have a new rash. You should follow up in the clinic if: - You cough more deeply or more often, especially if you notice more mucus or a change in the color of your mucus. - You are not getting better as expected. [email or web address] Not available 01/27/2024 11:23:01 Acute bronchitis is a common condition that causes inflammation of the bronchial tubes, which carry air to and from your lungs. It usually lasts for a few weeks and is often caused by a viral infection. The main symptoms are cough, chest discomfort, and sometimes fever and shortness of breath. To treat acute bronchitis, you should: - Drink plenty of fluids to thin the mucus and prevent dehydration. - Use a humidifier or steam inhalation to loosen the mucus and soothe the airways. - Avoid smoking and exposure to secondhand smoke and other irritants. - Take eplq-wep-[id number] pain relievers and fever reducers as needed. - Rest as much as possible to help your body fight the infection. Most cases of acute bronchitis resolve on their own without antibiotics. However, you should see your doctor if you have: - A fever higher than 100.4 F (38 C) for more than three days. - A cough that produces blood or green or yellow mucus. - Severe chest pain or trouble breathing. - Symptoms that last longer than four weeks or get worse. These may be signs of a more serious condition, such as pneumonia or chronic bronchitis. Your doctor may prescribe antibiotics or other medications to treat the underlying cause and prevent complications. [email or web address] Not available 01/27/2024 11:23:17 05/06/2024 [id number] smoking cessatio n counseling, greater than 3 minutes up to 10 minutes* [email or web address] Not available 05/06/2024 10:22:34 proteinuria: car e instructions nguttman Not available 05/06/2024 10:22:34 recombinant zoster (shingles) vaccine: what you need to know nguttman Not available 05/06/2024 10:22:34 Reviewed diet, encouraged to follow instructions. Regular exercise reviewed and encouraged. Continue to check BS fasting qam. DO NOT skip meals, and eat evening snack. Reviewed signs and symptoms of hypoglycemia, and what to do if it happens. Always keep hard candy/peanut butter crackers on hand. Reviewed injection technique. Reviewed foot care. Regular dental and eye exams strongly encouraged. [email or web address] Not available 04/17/2024 19:19:21 08/19/2024 [id number] smoking cessatio n counseling, greater than 3 minutes up to 10 minutes* [email or web address] Not available 08/19/2024 08:34:10 diabetic foot exam* nguttman Not available 08/19/2024 08:34:10 recombinant zoster (shingles) vaccine: what you need to know nguttman Not available 08/19/2024 08:34:09 proteinuria: car e instructions nguttman Not available 08/19/2024 08:34:10 Reviewed diet, encouraged to follow instructions. Regular exercise reviewed and encouraged. Continue to check BS fasting qam. DO NOT skip meals, and eat evening snack. Reviewed signs and symptoms of hypoglycemia, and what to do if it happens. Always keep hard candy/peanut butter crackers on hand. Reviewed injection technique. Reviewed foot care. Regular dental and eye exams strongly encouraged. [email or web address] Not available 07/29/2024 12:59:52 03/17/2025 [id number] smoking cessatio n counseling, greater than 3 minutes up to 10 minutes* [email or web address] Not available 03/28/2025 14:11:45 learning about lung cancer screening nguttman Not available 03/17/2025 10:13:18 diabetic foot exam* nguttman Not available 03/17/2025 10:13:18 proteinuria: car e instructions nguttman Not available 03/17/2025 10:13:18 recombinant zoster (shingles) vaccine: what you need to know nguttman Not available 03/17/2025 10:13:17 Reviewed diet, encouraged to follow instructions. Regular exercise reviewed and encouraged. Continue to check BS fasting qam. DO NOT skip meals, and eat evening snack. Reviewed signs and symptoms of hypoglycemia, and what to do if it happens. Always keep hard candy/peanut butter crackers on hand. Reviewed injection technique. Reviewed foot care. Regular dental and eye exams strongly encouraged. [email or web address] Not available 03/05/2025 17:13:19 NSAID precaution s given. taking more than the recommended dose will not help more and will put her at risk of GI bleeding and kidney injury. With him having proteinuria, caution given nguttman Not available 03/17/2025 10:57:39 08/04/2025 [id number] smoking cessatio n counseling, greater than 3 minutes up to 10 minutes* nguttman Not available 08/04/2025 08:59:31 diabetic foot exam* nguttman Not available 08/04/2025 08:59:31 proteinuria: car e instructions nguttman Not available 08/04/2025 08:59:31 diabetic diet nguttman Not available 08:59:31 recombinant zoster (shingles) vaccine: what you need to know nguttman Not available 08/04/2025 08:59:31 Reviewed diet, encouraged to follow instructions. Regular exercise reviewed and encouraged. Continue to check BS fasting qam. DO NOT skip meals, and eat evening snack. Reviewed signs and symptoms of hypoglycemia, and what to do if it happens. Always keep hard candy/peanut butter crackers on hand. Reviewed injection technique. Reviewed foot care. Regular dental and eye exams strongly encouraged nguttman Not available 06/29/2025 09:31:46 Reason for Referral Diabetic Ophthalmology Refer ral for Well controlled type 2 diabetes mellitus Referring Physician: Chandni Keller [facility], Encounter Date: 08/19/2024 [employer] Lead Referral for Hy pertensive heart disease without congestive heart failure Referring Physician: Chandni Keller [facility], Encounter Date: 03/17/2025 Results Created Date Observation Date Name Description Value Unit Range Abnormal Flag Note LastModifiedBy Organization Detail LastModifiedTime 01/21/20 24 01/22/2024 CBC WITH DIFFE RENTI AL/PL ATELE T WBC 7.7 x10e3 /uL 3.4-10 .8 Not Available [facility] ([facility]) [address] [place], [address], 01/22/2024 07:17:24 01/21/20 24 01/22/2024 CBC WITH DIFFE RENTI AL/PL ATELE T RBC 4.57 x10e6 /uL 4.14-5 .80 Not Available [facility] ([facility]) [address] [place], [address], 01/22/2024 07:17:24 01/21/20 24 01/22/2024 CBC WITH DIFFE RENTI AL/PL ATELE T hemoglobin 14.3 g/dL 13.0-1 7.7 Not Available [facility] ([facility]) [address] [place], [address], 01/22/2024 07:17:24 01/21/20 24 01/22/2024 CBC WITH DIFFE RENTI AL/PL ATELE T hematocrit 42.1 % 37.5-5 1.0 Not Available [facility] ([facility]) [address] [place], [address], 01/22/2024 07:17:24 01/21/20 24 01/22/2024 CBC WITH DIFFE RENTI AL/PL ATELE T MCV 92 fL 79-97 Not Available [facility] ([facility]) [address] [facility], [place], [address], 01/22/2024 07:17:24 01/21/20 24 01/22/2024 CBC WITH DIFFE RENTI AL/PL ATELE T MCH 31.3 pg 26.6-3 3.0 Not Available [facility] ([facility]) [address] [facility], [place], [address], 01/22/2024 07:17:24 01/21/20 24 01/22/2024 CBC WITH DIFFE RENTI AL/PL ATELE T MCHC 34.0 g/dL 31.5-3 5.7 Not Available [facility] ([facility]) [address] [facility], [place], [address], 01/22/2024 07:17:24 01/21/20 24 01/22/2024 CBC WITH DIFFE RENTI AL/PL ATELE T RDW 13.2 % 11.6-1 5.4 Not Available [facility] ([facility]) [address] [facility], [place], [address], 01/22/2024 07:17:24 01/21/20 24 01/22/2024 CBC WITH DIFFE RENTI AL/PL ATELE T platelets 207 x10e3 /uL 150-45 0 Not Available [facility] ([facility]) [address] [facility], [place], [address], 01/22/2024 07:17:24 01/21/20 24 01/22/2024 CBC WITH DIFFE RENTI AL/PL ATELE T neutrophils 54 % not estab. Not Available [facility] ([facility]) [address] [place], [address], 01/22/2024 07:17:24 01/21/20 24 01/22/2024 CBC WITH DIFFE RENTI AL/PL ATELE T lymphs 31 % not estab. Not Available [facility] ([facility]) [address] [facility], [place], [address], 01/22/2024 07:17:24 01/21/20 24 01/22/2024 CBC WITH DIFFE RENTI AL/PL ATELE T monocytes 9 % not estab. Not Available [facility] ([facility]) [address] [facility], [place], [address], 01/22/2024 07:17:24 01/21/20 24 01/22/2024 CBC WITH DIFFE RENTI AL/PL ATELE T eos 5 % not estab. Not Available [facility] ([facility]) [address] [place], [address], 01/22/2024 07:17:24 01/21/20 24 01/22/2024 CBC WITH DIFFE RENTI AL/PL ATELE T basos 1 % not estab. Not Available [facility] ([facility]) [address] [place], [address], 01/22/2024 07:17:24 01/21/20 24 01/22/2024 CBC WITH DIFFE RENTI AL/PL ATELE T immature cells BATH ATTENDANT Not Available [facility] ([facility]) [address] [place], [address], 01/22/2024 07:17:24 01/21/20 24 01/22/2024 CBC WITH DIFFE RENTI AL/PL ATELE T neutrophils (absolute) 4.2 x10e3 /uL 1.4-7. 0 Not Available [facility] ([facility]) [address] [place], [address], 01/22/2024 07:17:24 01/21/20 24 01/22/2024 CBC WITH DIFFE RENTI AL/PL ATELE T lymphs (absolute) 2.4 x10e3 /uL 0.7-3. 1 Not Available [facility] ([facility]) [address] [place], [address], 01/22/2024 07:17:24 01/21/20 24 01/22/2024 CBC WITH DIFFE RENTI AL/PL ATELE T monocytes(ab solute) 0.7 x10e3 /uL 0.1-0. 9 Not Available [facility] ([facility]) [address] [facility], [place], [address], 01/22/2024 07:17:24 01/21/20 24 01/22/2024 CBC WITH DIFFE RENTI AL/PL ATELE T eos (absolute) 0.4 x10e3 /uL 0.0-0. 4 Not Available [facility] ([facility]) [address] [facility], [place], [address], 01/22/2024 07:17:24 01/21/20 24 01/22/2024 CBC WITH DIFFE RENTI AL/PL ATELE T baso (absolute) 0.1 x10e3 /uL 0.0-0. 2 Not Available [facility] ([facility]) [address] [place], [address], 01/22/2024 07:17:24 01/21/20 24 01/22/2024 CBC WITH DIFFE RENTI AL/PL ATELE T immature granulocytes 0 % not estab. Not Available [facility] ([facility]) [address] [place], [address], 01/22/2024 07:17:24 01/21/20 24 01/22/2024 CBC WITH DIFFE RENTI AL/PL ATELE T immature grans (abs) 0.0 x10e3 /uL 0.0-0. 1 Not Available [facility] ([facility]) [address] [place], [address], 01/22/2024 07:17:24 01/21/20 24 01/22/2024 CBC WITH DIFFE RENTI AL/PL ATELE T NRBC BATH ATTENDANT Not Available [facility] ([facility]) [address] [place], [address], 01/22/2024 07:17:24 01/21/20 24 01/22/2024 CBC WITH DIFFE DEBBIE AL/SHAHNAZ [facility] hematology comments: BATH ATTENDANT Not Available [facility] ([facility]) [address] [facility], [place], [address], 01/22/2024 07:17:24 01/21/20 24 01/22/2024 COMP. METAB OLIC PANEL (14) glucose 127 mg/dL 70-99 above high normal Not Available [facility] ([facility]) [address] [facility], [place], [address], 01/22/2024 07:17:27 01/21/20 24 01/22/2024 COMP. METAB OLIC PANEL (14) BUN 21 mg/dL 8-27 Not Available [facility] ([facility]) [address] [facility], [place], [address], 01/22/2024 07:17:27 01/21/20 24 01/22/2024 COMP. METAB OLIC PANEL (14) creatinine 1.06 mg/dL 0.76-1 .27 Not Available [facility] ([facility]) [address] [facility], [place], [address], 01/22/2024 07:17:27 01/21/20 24 01/22/2024 COMP. METAB OLIC PANEL (14) eGFR 78 mL/mi n/1.7 3 >59 Not Available [facility] ([facility]) [address] [facility], [place], [address], 01/22/2024 07:17:27 01/21/20 24 01/22/2024 COMP. METAB OLIC PANEL (14) BUN/creatini ne ratio 20 10-24 Not Available [facility] ([facility]) [address] [facility], [place], [address], 01/22/2024 07:17:27 01/21/20 24 01/22/2024 COMP. METAB OLIC PANEL (14) sodium 140 mmol/ L 134-14 4 Not Available [facility] ([facility]) [address] [facility] [place], [address], 01/22/2024 07:17:27 01/21/20 24 01/22/2024 COMP. METAB OLIC PANEL (14) potassium 4.9 mmol/ L 3.5-5. 2 Not Available [facility] ([facility]) [address] [facility] [place], [address], 01/22/2024 07:17:27 01/21/20 24 01/22/2024 COMP. METAB OLIC PANEL (14) chloride 105 mmol/ L 96-106 Not Available [facility] ([facility]) [address] [facility] [place], [address], 01/22/2024 07:17:27 01/21/20 24 01/22/2024 COMP. METAB OLIC PANEL (14) carbon dioxide, total 20 mmol/ L 20-29 Not Available [facility] ([facility]) [address] [facility] [place], [address], 01/22/2024 07:17:27 01/21/20 24 01/22/2024 COMP. METAB OLIC PANEL (14) calcium 9.4 mg/dL 8.6-10 .2 Not Available [facility] ([facility]) [address] [facility] [place], [address], 01/22/2024 07:17:27 01/21/20 24 01/22/2024 COMP. METAB OLIC PANEL (14) protein, total 6.4 g/dL 6.0-8. 5 Not Available [facility] ([facility]) [address] [facility] [place], [address], 01/22/2024 07:17:27 01/21/20 24 01/22/2024 COMP. METAB OLIC PANEL (14) albumin 4.3 g/dL 3.9-4. 9 Not Available [facility] ([facility]) [address] [place], [address], 01/22/2024 07:17:27 01/21/20 24 01/22/2024 COMP. METAB OLIC PANEL (14) globulin, total 2.1 g/dL 1.5-4. 5 Not Available [facility] ([facility]) [address] [place], [address], 01/22/2024 07:17:27 01/21/20 24 01/22/2024 COMP. METAB OLIC PANEL (14) A/G ratio 2.0 1.2-2. 2 Not Available [facility] ([facility]) [address] [facility] [place], [address], 01/22/2024 07:17:27 01/21/20 24 01/22/2024 COMP. METAB OLIC PANEL (14) bilirubin, total 0.2 mg/dL 0.0-1. 2 Not Available [facility] ([facility]) [address] [facility] [place], [address], 01/22/2024 07:17:27 01/21/20 24 01/22/2024 COMP. METAB OLIC PANEL (14) alkaline phosphatase 78 IU/L 44-121 Not Available [facility]) [address] [facility] [place], [address], 01/22/2024 07:17:27 01/21/20 24 01/22/2024 COMP. METAB OLIC PANEL (14) AST (SGOT) 16 IU/L 0-40 Not Available [facility] ([facility]) [address] [facility] [place], [address], 01/22/2024 07:17:27 01/21/20 24 01/22/2024 COMP. METAB OLIC PANEL (14) ALT (SGPT) 14 IU/L 0-44 Not Available [facility] ([facility]) [address] [facility], [place], [address], 01/22/2024 07:17:27 01/21/20 24 01/22/2024 LIPID PANEL cholesterol, total 115 mg/dL 100-19 9 Not Available [facility] ([facility]) [address] [facility], [place], [address], 01/22/2024 07:17:29 01/21/20 24 01/22/2024 LIPID PANEL triglyceride s 69 mg/dL 0-149 Not Available [facility] ([facility]) [address] [facility] [place], [address], 01/22/2024 07:17:29 01/21/20 24 01/22/2024 LIPID PANEL HDL cholesterol 43 mg/dL >39 Not Available [facility]) [address] [facility] [place], [address], 01/22/2024 07:17:29 01/21/20 24 01/22/2024 LIPID PANEL VLDL cholesterol adrianna 15 mg/dL 5-40 Not Available [facility] ([facility]) [address] [place], [address], 01/22/2024 07:17:29 01/21/20 24 01/22/2024 LIPID PANEL LDL chol calc ([facility]) 57 mg/dL 0-99 Not Available [facility] ([facility]) [address] [facility], [place], [address], 01/22/2024 07:17:29 01/21/20 24 01/22/2024 LIPID PANEL comment: BATH ATTENDANT Not Available [facility] ([facility]) [address] [place], [address], 01/22/2024 07:17:29 01/21/20 24 01/22/2024 VITAM IN B12 AND FOLAT E vitamin B12 297 pg/mL 232-12 45 Not Available [facility] ([facility]) [address] [place], [address], 01/22/2024 07:17:31 01/21/20 24 01/22/2024 VITAM IN B12 AND FOLAT E folate (folic acid), serum 8.7 NG/mL >3.0 A serum folat e frederick ntrat ion of less than 3.1 ng/mL is consi dered to repre sent clini adrianna defic iency . Not Available [facility] ([facility]) [address] [facility], [place], [address], 01/22/2024 07:17:31 01/21/20 24 01/22/2024 HEMOG LOBIN A1C hemoglobin A1C 6.9 % 4.8-5. 6 above high normal Predi abete s: 5.7 - 6.4 Diabe suzi: >6.4 Glyce bijan contr ol for adult s with diabe suzi: <7.0 Not Available [facility] ([facility]) [address] [facility], [place], [address], 01/22/2024 07:17:32 01/21/20 24 01/22/2024 TSH TSH 2.500 uIU/m L 0.450- 4.500 Not Available [facility] ([facility]) [address] [facility], [place], [address], 01/22/2024 07:17:34 01/21/20 24 01/26/2024 METHY LMALO SANDEEP ACID, SERUM methylmaloni c acid, serum 187 nmol/ L 0-378 Not Available [facility] ([facility]) [address] [place], [address], 01/26/2024 04:09:55 01/21/20 24 01/22/2024 NICOLLE EN AUTHO RIZAT ION written authorizatio n Juan t Nicolle en Autho rizat ion Recei cristofer. Autho rizat ion recei cristofer from NICOLLE [employer] [address] 01-22 Logge d by [place] Not Available [facility] ([facility]) [address] [facility], [place], [address], 01/26/2024 04:09:56 01/21/20 24 01/29/2024 COMPL IANCE DRUG CITLALLI SIS, UR summary report (summary) FINAL ===== ===== ===== ===== ===== ===== ===== ===== ===== ===== ===== ===== ===== === TOXAS SURE COMP DRUG CITLALLI SIS,U R ===== ===== ===== ===== ===== ===== ===== ===== ===== ===== ===== ===== ===== === Test Resul t Flag Units Drug Prese nt Gabap entin PRESE NT Aceta minop hen PRESE NT Ibupr ofen PRESE NT Guaif enesi n PRESE NT Guaif enesi n may be admin ister ed as an over- the-c ounte r or presc ripti on drug; it may also be prese nt as a break down produ ct of metho carba mol. ===== ===== ===== ===== ===== ===== ===== ===== ===== ===== ===== ===== ===== === Test Resul t Flag Units Ref Range Creat inine 107 mg/dL >=20 ===== ===== ===== ===== ===== ===== ===== ===== ===== ===== ===== ===== ===== === Decla red Medic ation s: Medic ation list was not provi ded. ===== ===== ===== ===== ===== ===== ===== ===== ===== ===== ===== ===== ===== === For clini adrianna consu ltati on, pleas e call . ===== ===== ===== ===== ===== ===== ===== ===== ===== ===== ===== ===== ===== === Not Available [facility] ([facility]) [address] [facility], [place], [address], 01/29/2024 10:13:36 01/21/20 24 01/29/2024 COMPL IANCE DRUG CITLALLI SIS, UR pdf . Not Available [facility] ([facility]) [address] [facility], [place], [address], 01/29/2024 10:13:36 01/21/20 24 01/21/2024 micro album in/cr eatin ine, mass ratio , urine Microalbumin 80 Not Available [address] , [place], [address], 01/15/2024 18:48:44 01/21/20 24 01/21/2024 micro album in/cr eatin ine, mass ratio , urine Creatinine 200 Not Available [address] , [place], [address], 01/15/2024 18:48:44 01/21/20 24 01/21/2024 micro album in/cr eatin ine, mass ratio , urine Ratio 30-300 ABNL Not Available [address] , [place], [address], 01/15/2024 18:48:44 05/06/20 24 05/06/2024 HbA1c (hemo globi n A1c), blood HbA1C 8.4 % Not Available [facility] [address] [facility] , [place], [address], 04/17/2024 19:21:05 08/19/20 24 08/20/2024 COMP. METAB OLIC PANEL (14) glucose 74 mg/dL 70-99 normal Not Available [facility] ([facility]) [address] [place], [address], 08/20/2024 08:28:12 08/19/20 24 08/20/2024 COMP. METAB OLIC PANEL (14) BUN 16 mg/dL 8-27 normal Not Available [facility] ([facility]) [address] [place], [address], 08/20/2024 08:28:12 08/19/20 24 08/20/2024 COMP. METAB OLIC PANEL (14) creatinine 1.18 mg/dL 0.76-1 .27 normal Not Available [facility] ([facility]) [address] [place], [address], 08/20/2024 08:28:12 08/19/20 24 08/20/2024 COMP. METAB OLIC PANEL (14) eGFR 68 mL/mi n/1.7 3 >59 normal Not Available [facility] ([facility]) [address] [place], [address], 08/20/2024 08:28:12 08/19/20 24 08/20/2024 COMP. METAB OLIC PANEL (14) BUN/creatini ne ratio 14 10-24 normal Not Available [facility] ([facility]) [address] [place], [address], 08/20/2024 08:28:12 08/19/20 24 08/20/2024 COMP. METAB OLIC PANEL (14) sodium 144 mmol/ L 134-14 4 normal Not Available [facility] ([facility]) [address] [facility] [place], [address], 08/20/2024 08:28:12 08/19/20 24 08/20/2024 COMP. METAB OLIC PANEL (14) potassium 4.3 mmol/ L 3.5-5. 2 normal Not Available [facility] ([facility]) [address] [place], [address], 08/20/2024 08:28:12 08/19/20 24 08/20/2024 COMP. METAB OLIC PANEL (14) chloride 105 mmol/ L 96-106 normal Not Available [facility] ([facility]) [address] [place], [address], 08/20/2024 08:28:12 08/19/20 24 08/20/2024 COMP. METAB OLIC PANEL (14) carbon dioxide, total 23 mmol/ L 20-29 normal Not Available [facility] ([facility]) [address] [place], [address], 08/20/2024 08:28:12 08/19/20 24 08/20/2024 COMP. METAB OLIC PANEL (14) calcium 9.3 mg/dL 8.6-10 .2 normal Not Available [facility] ([facility]) [address] [place], [address], 08/20/2024 08:28:12 08/19/20 24 08/20/2024 COMP. METAB OLIC PANEL (14) protein, total 6.8 g/dL 6.0-8. 5 normal Not Available [facility] ([facility]) [address] [place], [address], 08/20/2024 08:28:12 08/19/20 24 08/20/2024 COMP. METAB OLIC PANEL (14) albumin 4.4 g/dL 3.9-4. 9 normal Not Available [facility] ([facility]) [address] [place], [address], 08/20/2024 08:28:12 08/19/20 24 08/20/2024 COMP. METAB OLIC PANEL (14) globulin, total 2.4 g/dL 1.5-4. 5 Not Available [facility] ([facility]) [address] [facility], [place], [address], 08/20/2024 08:28:12 08/19/20 24 08/20/2024 COMP. METAB OLIC PANEL (14) bilirubin, total 0.4 mg/dL 0.0-1. 2 normal Not Available [facility] ([facility]) [address] [facility] [place], [address], 08/20/2024 08:28:12 08/19/20 24 08/20/2024 COMP. METAB OLIC PANEL (14) alkaline phosphatase 81 IU/L 44-121 normal Not Available [facility] ([facility]) [address] [facility] [place], [address], 08/20/2024 08:28:12 08/19/20 24 08/20/2024 COMP. METAB OLIC PANEL (14) AST (SGOT) 16 IU/L 0-40 normal Not Available [facility] ([facility]) [address] [facility], [place], [address], 08/20/2024 08:28:12 08/19/20 24 08/20/2024 COMP. METAB OLIC PANEL (14) ALT (SGPT) 13 IU/L 0-44 normal Not Available [facility] ([facility]) [address] [facility] [place], [address], 08/20/2024 08:28:12 08/19/20 24 08/20/2024 LIPID PANEL cholesterol, total 141 mg/dL 100-19 9 normal Not Available [facility] ([facility]) [address] [place] [place], [address], 08/20/2024 08:28:12 08/19/20 24 08/20/2024 LIPID PANEL triglyceride s 139 mg/dL 0-149 normal Not Available [facility] ([facility]) [address] [place], [address], 08/20/2024 08:28:12 08/19/20 24 08/20/2024 LIPID PANEL HDL cholesterol 43 mg/dL >39 normal Not Available [facility] ([facility]) [address] [place], [address], 08/20/2024 08:28:12 08/19/20 24 08/20/2024 LIPID PANEL VLDL cholesterol adrianna 24 mg/dL 5-40 Not Available [facility] ([facility]) [address] [place], [address], 08/20/2024 08:28:12 08/19/20 24 08/20/2024 LIPID PANEL LDL chol calc ([facility]) 74 mg/dL 0-99 Not Available [facility] ([facility]) [address] [place], [address], 08/20/2024 08:28:12 08/19/20 24 08/20/2024 LIPID PANEL LDL calc comment: BATH ATTENDANT Not Available [facility] ([facility]) [address] [facility], [place], [address], 08/20/2024 08:28:12 08/19/20 24 08/20/2024 HEMOG LOBIN A1C hemoglobin A1C 6.8 % 4.8-5. 6 above high normal Predi abete s: 5.7 - 6.4 Diabe suzi: >6.4 Glyce bijan contr ol for adult s with diabe suzi: <7.0 Not Available [facility] ([facility]) [address] [place], [address], 08/20/2024 08:28:13 08/19/20 24 08/25/2024 COMPL IANCE DRUG CITLALLI , NO THC summary report (summary) FINAL ===== ===== ===== ===== ===== ===== ===== ===== ===== ===== ===== ===== ===== === TOXAS SURE COMP DRUG CITLALLI SIS,N O THC,U R ===== ===== ===== ===== ===== ===== ===== ===== ===== ===== ===== ===== ===== === Test Resul t Flag Units Drug Prese nt Gabap entin PRESE NT Guaif enesi n PRESE NT Guaif enesi n may be admin ister ed as an over- the-c ounte r or presc ripti on drug; it may also be prese nt as a break down produ ct of metho carba mol. ===== ===== ===== ===== ===== ===== ===== ===== ===== ===== ===== ===== ===== === Test Resul t Flag Units Ref Range Creat inine 225 mg/dL >=20 ===== ===== ===== ===== ===== ===== ===== ===== ===== ===== ===== ===== ===== === Decla red Medic ation s: Medic ation list was not provi ded. ===== ===== ===== ===== ===== ===== ===== ===== ===== ===== ===== ===== ===== === For clini adrianna consu ltati on, pleas e call [phone]. ===== ===== ===== ===== ===== ===== ===== ===== ===== ===== ===== ===== ===== === Not Available [facility] ([facility]) [address] [facility] [place], [address], 08/25/2024 16:14:02 08/19/20 24 08/25/2024 COMPL IANCE DRUG CITLALLI , NO THC pdf . Not Available [facility] ([facility]) [address] [facility] [place], [address], 08/25/2024 16:14:02 03/17/20 25 03/18/2025 CBC WITH DIFFE RENTI AL/PL ATELE T WBC 8.7 x10e3 /uL 3.4-10 .8 normal Not Available [facility] ([facility]) [address] [place], [address], 03/18/2025 08:52:37 03/17/20 25 03/18/2025 CBC WITH DIFFE RENTI AL/PL ATELE T RBC 5.21 x10e6 /uL 4.14-5 .80 normal Not Available [facility] ([facility]) [address] [place], [address], 03/18/2025 08:52:37 03/17/2003/18/2025 CBC WITH DIFFE RENTI AL/PL ATELE T hemoglobin 14.8 g/dL 13.0-1 7.7 normal Not Available [facility] ([facility]) [address] [place], [address], 03/18/2025 08:52:37 03/17/2003/18/2025 CBC WITH DIFFE RENTI AL/PL ATELE T hematocrit 47.3 % 37.5-5 1.0 normal Not Available [facility] ([facility]) [address] [place], [address], 03/18/2025 08:52:37 03/17/20 25 03/18/2025 CBC WITH DIFFE RENTI AL/PL ATELE T MCV 91 fL 79-97 normal Not Available [facility] ([facility]) [address] [facility], [place], [address], 03/18/2025 08:52:37 03/17/20 25 03/18/2025 CBC WITH DIFFE RENTI AL/PL ATELE T MCH 28.4 pg 26.6-3 3.0 normal Not Available [facility] ([facility]) [address] [place], [address], 03/18/2025 08:52:37 03/17/20 25 03/18/2025 CBC WITH DIFFE RENTI AL/PL ATELE T MCHC 31.3 g/dL 31.5-3 5.7 below low normal Not Available [facility] ([facility]) [address] [facility], [place], [address], 03/18/2025 08:52:37 03/17/20 25 03/18/2025 CBC WITH DIFFE RENTI AL/PL ATELE T RDW 13.9 % 11.6-1 5.4 Not Available [facility] ([facility]) [address] [facility], [place], [address], 03/18/2025 08:52:37 03/17/20 25 03/18/2025 CBC WITH DIFFE RENTI AL/PL ATELE T platelets 232 x10e3 /uL 150-45 0 normal Not Available [facility] ([facility]) [address] [place], [address], 03/18/2025 08:52:37 03/17/20 25 03/18/2025 CBC WITH DIFFE RENTI AL/PL ATELE T neutrophils 50 % not estab. normal Not Available [facility] ([facility]) [address] [place], [address], 03/18/2025 08:52:37 03/17/20 25 03/18/2025 CBC WITH DIFFE RENTI AL/PL ATELE T lymphs 36 % not estab. normal Not Available [facility] ([facility]) [address] [facility], [place], [address], 03/18/2025 08:52:37 03/17/20 25 03/18/2025 CBC WITH DIFFE RENTI AL/PL ATELE T monocytes 8 % not estab. normal Not Available [facility] ([facility]) [address] [facility], [place], [address], 03/18/2025 08:52:37 03/17/20 25 03/18/2025 CBC WITH DIFFE RENTI AL/PL ATELE T eos 5 % not estab. normal Not Available [facility] ([facility]) [address] [facility], [place], [address], 03/18/2025 08:52:37 03/17/20 25 03/18/2025 CBC WITH DIFFE RENTI AL/PL ATELE T basos 1 % not estab. normal Not Available [facility] ([facility]) [address] [place], [address], 03/18/2025 08:52:37 03/17/20 25 03/18/2025 CBC WITH DIFFE RENTI AL/PL ATELE T immature cells BATH ATTENDANT Not Available [facility] ([facility]) [address] [facility], [place], [address], 03/18/2025 08:52:37 03/17/20 25 03/18/2025 CBC WITH DIFFE RENTI AL/PL ATELE T neutrophils (absolute) 4.3 x10e3 /uL 1.4-7. 0 normal Not Available [facility] ([facility]) [address] [place], [address], 03/18/2025 08:52:37 03/17/20 25 03/18/2025 CBC WITH DIFFE RENTI AL/PL ATELE T lymphs (absolute) 3.2 x10e3 /uL 0.7-3. 1 above high normal Not Available [facility] ([facility]) [address] [place], [address], 03/18/2025 08:52:37 03/17/20 25 03/18/2025 CBC WITH DIFFE RENTI AL/PL ATELE T monocytes(ab solute) 0.7 x10e3 /uL 0.1-0. 9 normal Not Available [facility] ([facility]) [address] [facility], [place], [address], 03/18/2025 08:52:37 03/17/20 25 03/18/2025 CBC WITH DIFFE RENTI AL/PL ATELE T eos (absolute) 0.5 x10e3 /uL 0.0-0. 4 above high normal Not Available [facility] ([facility]) [address] [place], [address], 03/18/2025 08:52:37 03/17/20 25 03/18/2025 CBC WITH DIFFE RENTI AL/PL ATELE T baso (absolute) 0.1 x10e3 /uL 0.0-0. 2 normal Not Available [facility] ([facility]) [address] [place], [address], 03/18/2025 08:52:37 03/17/20 25 03/18/2025 CBC WITH DIFFE RENTI AL/PL ATELE T immature granulocytes 0 % not estab. Not Available [facility] ([facility]) [address] [place], [address], 03/18/2025 08:52:37 03/17/20 25 03/18/2025 CBC WITH DIFFE RENTI AL/PL ATELE T immature grans (abs) 0.0 x10e3 /uL 0.0-0. 1 Not Available [facility] ([facility]) [address] [place], [address], 03/18/2025 08:52:37 03/17/20 25 03/18/2025 CBC WITH DIFFE RENTI AL/PL ATELE T NRBC BATH ATTENDANT Not Available [facility] ([facility]) [address] [facility], [place], [address], 03/18/2025 08:52:37 03/17/20 25 03/18/2025 CBC WITH DIFFE RENTI AL/PL ATELE T hematology comments: BATH ATTENDANT Not Available [facility] ([facility]) [address] [facility], [place], [address], 03/18/2025 08:52:37 03/17/20 25 03/18/2025 COMP. METAB OLIC PANEL (14) glucose 99 mg/dL 70-99 normal Not Available [facility] ([facility]) [address] [facility], [place], [address], 03/18/2025 08:52:38 03/17/20 25 03/18/2025 COMP. METAB OLIC PANEL (14) BUN 9 mg/dL 8-27 normal Not Available [facility] ([facility]) [address] [place], [address], 03/18/2025 08:52:38 03/17/20 25 03/18/2025 COMP. METAB OLIC PANEL (14) creatinine 0.93 mg/dL 0.76-1 .27 normal Not Available [facility] ([facility]) [address] [facility], [place], [address], 03/18/2025 08:52:38 03/17/20 25 03/18/2025 COMP. METAB OLIC PANEL (14) eGFR 91 mL/mi n/1.7 3 >59 normal Not Available [facility] ([facility]) [address] [place], [address], 03/18/2025 08:52:38 03/17/20 25 03/18/2025 COMP. METAB OLIC PANEL (14) BUN/creatini ne ratio 10 10-24 normal Not Available [facility] ([facility]) [address] [facility] [place], [address], 03/18/2025 08:52:38 03/17/20 25 03/18/2025 COMP. METAB OLIC PANEL (14) sodium 141 mmol/ L 134-14 4 normal Not Available [facility] ([facility]) [address] [facility] [place], [address], 03/18/2025 08:52:38 03/17/20 25 03/18/2025 COMP. METAB OLIC PANEL (14) potassium 4.7 mmol/ L 3.5-5. 2 normal Not Available [facility] ([facility]) [address] [place] [place], [address], 03/18/2025 08:52:38 03/17/20 25 03/18/2025 COMP. METAB OLIC PANEL (14) chloride 103 mmol/ L 96-106 normal Not Available [facility] ([facility]) [address] [place] [place], [address], 03/18/2025 08:52:38 03/17/20 25 03/18/2025 COMP. METAB OLIC PANEL (14) carbon dioxide, total 24 mmol/ L 20-29 normal Not Available [facility] ([facility]) [address] [place] [place], [address], 03/18/2025 08:52:38 03/17/20 25 03/18/2025 COMP. METAB OLIC PANEL (14) calcium 9.2 mg/dL 8.6-10 .2 normal Not Available [facility] ([facility]) [address] [place] [place], [address], 03/18/2025 08:52:38 03/17/20 25 03/18/2025 COMP. METAB OLIC PANEL (14) protein, total 6.6 g/dL 6.0-8. 5 normal Not Available [facility] ([facility]) [address] [place], [address], 03/18/2025 08:52:38 03/17/20 25 03/18/2025 COMP. METAB OLIC PANEL (14) albumin 4.3 g/dL 3.9-4. 9 normal Not Available [facility] ([facility]) [address] [place], [address], 03/18/2025 08:52:38 03/17/20 25 03/18/2025 COMP. METAB OLIC PANEL (14) globulin, total 2.3 g/dL 1.5-4. 5 Not Available [facility] ([facility]) [address] [place] [place], [address], 03/18/2025 08:52:38 03/17/20 25 03/18/2025 COMP. METAB OLIC PANEL (14) bilirubin, total 0.2 mg/dL 0.0-1. 2 normal Not Available [facility] ([facility]) [address] [facility], [place], [address], 03/18/2025 08:52:38 03/17/20 25 03/18/2025 COMP. METAB OLIC PANEL (14) alkaline phosphatase 86 IU/L 44-121 normal Not Available [facility] ([facility]) [address] [place], [address], 03/18/2025 08:52:38 03/17/20 25 03/18/2025 COMP. METAB OLIC PANEL (14) AST (SGOT) 14 IU/L 0-40 normal Not Available [facility] ([facility]) [address] [place] [place], [address], 03/18/2025 08:52:38 03/17/20 25 03/18/2025 COMP. METAB OLIC PANEL (14) ALT (SGPT) 9 IU/L 0-44 normal Not Available [facility] ([facility]) [address] [place], [address], 03/18/2025 08:52:38 03/17/20 25 03/18/2025 LIPID PANEL cholesterol, total 99 mg/dL 100-19 9 below low normal Not Available [facility] ([facility]) [address] [place], [address], 03/18/2025 08:52:38 03/17/20 25 03/18/2025 LIPID PANEL triglyceride s 85 mg/dL 0-149 normal Not Available [facility] ([facility]) [address] [place], [address], 03/18/2025 08:52:38 03/17/20 25 03/18/2025 LIPID PANEL HDL cholesterol 36 mg/dL >39 below low normal Not Available [facility] ([facility]) [address] [place], [address], 03/18/2025 08:52:38 03/17/20 25 03/18/2025 LIPID PANEL VLDL cholesterol adrianna 17 mg/dL 5-40 Not Available [facility] ([facility]) [address] [place], [address], 03/18/2025 08:52:38 03/17/20 25 03/18/2025 LIPID PANEL LDL chol calc ([facility]) 46 mg/dL 0-99 Not Available [facility] ([facility]) [address] [place], [address], 03/18/2025 08:52:38 03/17/20 25 03/18/2025 LIPID PANEL LDL calc comment: BATH ATTENDANT Not Available [facility] ([facility]) [address] [place], [address], 03/18/2025 08:52:38 03/17/20 25 03/18/2025 HEMOG LOBIN A1C hemoglobin A1C 7.7 % 4.8-5. 6 above high normal Predi abete s: 5.7 - 6.4 Diabe suzi: >6.4 Glyce bijan contr ol for adult s with diabe suzi: <7.0 Not Available [facility] ([facility]) [address] [facility], [place], [address], 03/18/2025 08:52:39 03/17/2003/18/2025 PROST ATE-S PECIF IC AG prostate specific Ag 1.4 NG/mL 0.0-4. 0 normal Srikanth ECLIA metho dolog y. Accor ding to the Ameri can [employer] g[employer] i[employer] n, Serum PSA shoul d decre ase and remai n at undet ectab le level s after radic al prost atect mary. The AUA defin es bioch emica l recur rence as an initi al PSA value 0.2 ng/mL or great er follo wed by a subse quent confi rmato ry PSA value 0.2 ng/mL or great er. Value s obtai jaylene with diffe rent assay metho ds or kits canno t be used inter corbin eably . Resul ts canno t be inter prete d as absol [place] evide nce of the prese nce or absen ce of mikey maxwell se. Not Available [facility] ([facility]) [address] [facility], [place], [address], 03/18/2025 08:52:39 03/17/2003/24/2025 COMPL IANCE DRUG CITLALLI , NO THC summary report (summary) FINAL ===== ===== ===== ===== ===== ===== ===== ===== ===== ===== ===== ===== ===== === TOXAS SURE COMP DRUG CITLALLI SIS,N O THC,U R ===== ===== ===== ===== ===== ===== ===== ===== ===== ===== ===== ===== ===== === Speci men Alert Note: Urina ry creat inine is low; abili ty to detec t some drugs may be compr omise d. Inter pret resul ts with cauti on. ===== ===== ===== ===== ===== ===== ===== ===== ===== ===== ===== ===== ===== === Test Resul t Flag Units Drug Prese nt Gabap entin PRESE NT Aceta minop hen PRESE NT ===== ===== ===== ===== ===== ===== ===== ===== ===== ===== ===== ===== ===== === Test Resul t Flag Units Ref Range Creat inine 16 L mg/dL >=20 ===== ===== ===== ===== ===== ===== ===== ===== ===== ===== ===== ===== ===== === Decla red Medic ation s: Medic ation list was not provi ded. ===== ===== ===== ===== ===== ===== ===== ===== ===== ===== ===== ===== ===== === For clini adrianna consu ltati on, pleas e call . ===== ===== ===== ===== ===== ===== ===== ===== ===== ===== ===== ===== ===== === Not Available [facility] ([facility]) [address], [place], [address], 03/24/2025 16:28:43 03/17/20 25 03/24/2025 COMPL IANCE DRUG CITLALLI , NO THC pdf . Not Available [facility] ([facility]) [address] [facility], [place], [address], 03/24/2025 16:28:43 03/17/20 25 03/17/2025 urina lysis , dipst ick Leukocytes Negati ve Not Available [facility] [address], [place], [address], 03/05/2025 17:32:46 03/17/20 25 03/17/2025 urina lysis , dipst ick Nitrite negati ve Not Available [facility] [address], [place], [address], 03/05/2025 17:32:46 03/17/20 25 03/17/2025 urina lysis , dipst ick Urobilinogen .2 Not Available [facility] [address], [place], [address], 03/05/2025 17:32:46 03/17/20 25 03/17/2025 urina lysis , dipst ick Protein Negati ve Not Available [facility] [address], [place], [address], 03/05/2025 17:32:46 03/17/20 25 03/17/2025 urina lysis , dipst ick pH 6.0 Not Available [facility] [address], [place], [address], 03/05/2025 17:32:46 03/17/20 25 03/17/2025 urina lysis , dipst ick Blood Negati ve Not Available [facility] [address], [place], [address], 03/05/2025 17:32:46 04/18/20 25 03/17/2025 urina lysis , dipst ick Specific [place] 1.005 Not Available [facility] [address], [place], [address], 03/05/2025 17:32:46 03/17/20 25 03/17/2025 urina lysis , dipst ick Ketone Negati ve Not Available [facility] [address], [place], [address], 03/05/2025 17:32:46 03/17/20 25 03/17/2025 urina lysis , dipst ick Bilirubin Negati ve Not Available [facility] [address], [place], [address], 03/05/2025 17:32:46 03/17/20 25 03/17/2025 urina lysis , dipst ick Glucose 250 Not Available [facility] [address], [place], [address], 03/05/2025 17:32:46 03/17/20 25 03/17/2025 urina lysis , dipst ick Appearance Clear Not Available [facility] [address], [place], [address], 03/05/2025 17:32:46 03/17/20 25 03/17/2025 urina lysis , dipst ick Color Pale Yellow Not Available [facility] [address], [place], [address], 03/05/2025 17:32:46 03/17/20 25 03/17/2025 micro album in/cr eatin ine, mass ratio , urine Microalbumin 10 Not Available [facility] [address], [place], [address], 03/05/2025 17:32:36 03/17/20 25 03/17/2025 micro album in/cr eatin ine, mass ratio , urine Creatinine 10 Not Available [facility] [address] [facility], [place], [address], 03/05/2025 17:32:36 03/17/20 25 03/17/2025 micro album in/cr eatin ine, mass ratio , urine Ratio 30-300 , abnl Not Available [facility] [address], [place], [address], 03/05/2025 17:32:36 08/04/20 25 08/05/2025 COMP. METAB OLIC PANEL (14) glucose 153 mg/dL 70-99 above high normal Not Available [facility] ([facility]) [address] [place], [address], 08/05/2025 10:11:04 08/04/20 25 08/05/2025 COMP. METAB OLIC PANEL (14) BUN 17 mg/dL 8-27 normal Not Available [facility] ([facility]) [address] [place], [address], 08/05/2025 10:11:04 08/04/20 25 08/05/2025 COMP. METAB OLIC PANEL (14) creatinine 0.99 mg/dL 0.76-1 .27 normal Not Available [facility] ([facility]) [address] [place], [address], 08/05/2025 10:11:04 08/04/20 25 08/05/2025 COMP. METAB OLIC PANEL (14) eGFR 84 mL/mi n/1.7 3 >59 normal Not Available [facility] ([facility]) [address] [place], [address], 08/05/2025 10:11:04 08/04/20 25 08/05/2025 COMP. METAB OLIC PANEL (14) BUN/creatini ne ratio 17 10-24 normal Not Available [facility] ([facility]) [address] [place], [address], 08/05/2025 10:11:04 08/04/20 25 08/05/2025 COMP. METAB OLIC PANEL (14) sodium 143 mmol/ L 134-14 4 normal Not Available [facility] ([facility]) [address] [place], [address], 08/05/2025 10:11:04 08/04/20 25 08/05/2025 COMP. METAB OLIC PANEL (14) potassium 4.1 mmol/ L 3.5-5. 2 normal Not Available [facility] ([facility]) [address] [facility] [place], [address], 08/05/2025 10:11:04 08/04/20 25 08/05/2025 COMP. METAB OLIC PANEL (14) chloride 104 mmol/ L 96-106 normal Not Available [facility] ([facility]) [address] [place], [address], 08/05/2025 10:11:04 08/04/20 25 08/05/2025 COMP. METAB OLIC PANEL (14) carbon dioxide, total 22 mmol/ L 20-29 normal Not Available [facility] ([facility]) [address] [facility] [place], [address], 08/05/2025 10:11:04 08/04/20 25 08/05/2025 COMP. METAB OLIC PANEL (14) calcium 9.9 mg/dL 8.6-10 .2 normal Not Available [facility] ([facility]) [address] [facility] [place], [address], 08/05/2025 10:11:04 08/04/20 25 08/05/2025 COMP. METAB OLIC PANEL (14) protein, total 7.0 g/dL 6.0-8. 5 normal Not Available [facility] ([facility]) [address] [place], [address], 08/05/2025 10:11:04 08/04/20 25 08/05/2025 COMP. METAB OLIC PANEL (14) albumin 4.7 g/dL 3.9-4. 9 normal Not Available [facility] ([facility]) [address] [place], [address], 08/05/2025 10:11:04 08/04/20 25 08/05/2025 COMP. METAB OLIC PANEL (14) globulin, total 2.3 g/dL 1.5-4. 5 Not Available [facility] ([facility]) [address] [place], [address], 08/05/2025 10:11:04 08/04/20 25 08/05/2025 COMP. METAB OLIC PANEL (14) bilirubin, total 0.4 mg/dL 0.0-1. 2 normal Not Available [facility] ([facility]) [address] [place], [address], 08/05/2025 10:11:04 08/04/20 25 08/05/2025 COMP. METAB OLIC PANEL (14) alkaline phosphatase 84 IU/L 44-121 normal Eff ectiv e Septe mber 2024 Alkal ine Phosp hatas e refer ence inter varsha will be corbin ing to: Age Male Femal e 0 - 5 days 47 - 127 47 - 127 6 - 10 days 29 - 242 29 - 242 11 - 20 days 109 - 357 109 - 357 21 - 30 days 94 - 494 94 - 494 1 - 2 month s 149 - 539 149 - 539 3 - 6 month s 131 - 452 131 - 452 7 - 11 month s 117 - 401 117 - 401 12 month s - 6 years 158 - 369 158 - 369 7 - 12 years 150 - 409 150 - 409 13 years 156 - 435 78 - 227 14 years 114 - 375 64 - 161 15 years 88 - 279 56 - 134 16 years 74 - 207 51 - 121 17 years 63 - 161 47 - 113 18 - 20 years 51 - 125 42 - 106 21 - 50 years 47 - 123 41 - 116 51 - 80 years 49 - 135 51 - 125 >80 years 48 - 129 48 - 129 Not Available [facility] ([facility]) [address] [place], [address], 08/05/2025 10:11:04 08/04/20 25 08/05/2025 COMP. METAB OLIC PANEL (14) AST (SGOT) 19 IU/L 0-40 normal Not Available [facility] ([facility]) [address] [place], [address], 08/05/2025 10:11:04 08/04/20 25 08/05/2025 COMP. METAB OLIC PANEL (14) ALT (SGPT) 21 IU/L 0-44 normal Not Available [facility] ([facility]) [address] [place], [address], 08/05/2025 10:11:04 08/04/20 25 08/05/2025 LIPID PANEL cholesterol, total 169 mg/dL 100-19 9 normal Not Available [facility] ([facility]) [address] [place], [address], 08/05/2025 10:11:04 08/04/20 25 08/05/2025 LIPID PANEL triglyceride s 135 mg/dL 0-149 normal Not Available [facility] ([facility]) [address] [place], [address], 08/05/2025 10:11:04 08/04/20 25 08/05/2025 LIPID PANEL HDL cholesterol 39 mg/dL >39 below low normal Not Available [facility] ([facility]) [address] [place], [address], 08/05/2025 10:11:04 08/04/20 25 08/05/2025 LIPID PANEL VLDL cholesterol adrianna 24 mg/dL 5-40 Not Available [facility] ([facility]) [address] [place], [address], 08/05/2025 10:11:04 08/04/20 25 08/05/2025 LIPID PANEL LDL chol calc ([facility]) 106 mg/dL 0-99 above high normal Not Available [facility] ([facility]) [address] [facility], [place], [address], 08/05/2025 10:11:04 08/04/20 25 08/05/2025 LIPID PANEL LDL calc 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 6 above high normal Predi abete s: 5.7 - 6.4 Diabe suzi: >6.4 Glyce bijan contr ol for adult s with diabe suzi: <7.0 Not Available [facility] ([facility]) [address] [facility], [place], [address], 08/05/2025 10:11:05 08/04/20 25 08/05/2025 VITAM IN D, 25-HY DROXY vitamin D, 25-hydroxy 24.8 NG/mL 30.0-1 00.0 below low normal Vitam in D defic iency has been defin ed by the Insti tute of Medic ine and an Endoc rine Socie ty pract ice guide line as a level of serum 25-OH vitam in D less than 20 ng/mL (1,2) . The Endoc rine Socie ty went on to furth er defin e vitam in D insuf ficie ncy as a level betwe en 21 and 29 ng/mL (2). 1. IOM (Inst itute of Medic ine). 2009. Dieta ry refer ence intak es for calci um and D. Rodriguez martinez [place]: The [facility] Press . 2. Katlyn fine [place], Betty herrera [place], Vasiliy off-F errar i QUIÑONES, et al. Evalu ation , treat ment, and preve ntion of vitam in D defic iency : an Endoc rine Socie ty clini adrianna pract ice guide line. JCEM. 2010; 96(5) :1911 -30. Not Available [facility] ([facility]) [address], [place], [address], 08/05/2025 10:11:05 08/04/2008/10/2025 COMPL IANCE DRUG CITLALLI , NO THC summary report (summary) FINAL ===== ===== ===== ===== ===== ===== ===== ===== ===== ===== ===== ===== ===== === TOXAS SURE COMP DRUG CITLALLI SIS,N O THC,U R ===== ===== ===== ===== ===== ===== ===== ===== ===== ===== ===== ===== ===== === Test Resul t Flag Units Drug Prese nt Gabap entin PRESE NT ===== ===== ===== ===== ===== ===== ===== ===== ===== ===== ===== ===== ===== === Test Resul t Flag Units Ref Range Creat inine 97 mg/dL >=20 ===== ===== ===== ===== ===== ===== ===== ===== ===== ===== ===== ===== ===== === Decla red Medic ation s: Medic ation list was not provi ded. ===== ===== ===== ===== ===== ===== ===== ===== ===== ===== ===== ===== ===== === For clini adrianna consu ltati on, pleas e call . ===== ===== ===== ===== ===== ===== ===== ===== ===== ===== ===== ===== ===== === Not Available [facility] ([facility]) [address] [facility], [place], [address], 08/10/2025 10:14:21 08/04/2008/10/2025 COMPL IANCE DRUG CITLALLI , NO THC pdf . Not Available [facility] ([facility]) [address] [facility], [place], [address], 08/10/2025 10:14:21 08/04/20 25 08/04/2025 micro album in/cr eatin ine, mass ratio , urine Microalbumin 80 mg/L Not Available [facility] [address], [place], [address], 06/29/2025 09:11:18 08/04/20 25 08/04/2025 micro album in/cr eatin ine, mass ratio , urine Creatinine 200mg/ dL Not Available [facility] [address], [place], [address], 06/29/2025 09:11:18 08/04/20 25 08/04/2025 micro album in/cr eatin ine, mass ratio , urine Ratio <30 mg/g Not Available [facility] [address], [place], [address], 06/29/2025 09:11:18 08/04/20 25 08/04/2025 urina lysis , dipst ick Leukocytes Negati ve Not Available [facility] [address], [place], [address], 06/29/2025 09:11:18 08/04/20 25 08/04/2025 urina lysis , dipst ick Nitrite negati ve Not Available [facility] [address], [place], [address], 06/29/2025 09:11:18 08/04/20 25 08/04/2025 urina lysis , dipst ick Urobilinogen .2 Not Available [facility] [address], [place], [address], 06/29/2025 09:11:18 08/04/20 25 08/04/2025 urina lysis , dipst ick Protein Negati ve Not Available [facility] [address], [place], [address], 06/29/2025 09:11:18 08/04/20 25 08/04/2025 urina lysis , dipst ick pH 6.0 Not Available [facility] [address], [place], [address], 06/29/2025 09:11:18 08/04/20 25 08/04/2025 urina lysis , dipst ick Blood Negati ve Not Available [facility] [address], [place], [address], 06/29/2025 09:11:18 08/04/20 25 08/04/2025 urina lysis , dipst ick Specific [place] 1.010 Not Available [facility] [address], [place], [address], 06/29/2025 09:11:18 08/04/20 25 08/04/2025 urina lysis , dipst ick Ketone Negati ve Not Available [facility] [address], [place], [address], 06/29/2025 09:11:18 08/04/20 25 08/04/2025 urina lysis , dipst ick Bilirubin Negati ve Not Available [facility] [address], [place], [address], 06/29/2025 09:11:18 08/04/20 25 08/04/2025 urina lysis , dipst ick Glucose Negati ve Not Available [facility] [address], [place], [address], 06/29/2025 09:11:18 08/04/20 25 08/04/2025 urina lysis , dipst ick Appearance Clear Not Available [facility] [address], [place], [address], 06/29/2025 09:11:18 08/04/20 25 08/04/2025 urina lysis , dipst ick Color Yellow Not Available [facility] [address], [place], [address], 06/29/2025 09:11:18 08/04/20 25 08/04/2025 gluco se, finge rstic k, blood Blood Glucose: mg/dl 158 Not Available [facility] [address], [place], [address], 08/04/2025 08:34:22 03/28/20 25 03/28/2025 LDCT, chest , for lung cance r scree kraig [facility] Name: [facility] [address] Phys: Abner osborne MD, [place] [address] : 1959 Age: 64 Sex: M Acct: [id number] Loc: G.CT PHONE #: Exam Date: 2024 Status : DEP CLI FAX #: Rad# [id number] Unit# [id number] Admit Date: 2024 EXAMS: CPT CODE: [id number] CT CHEST LDCT LUNG SCREEN G0297 EXAM: CT LUNG SCREEN ING INDICA TION: Lung cancer screen ing Curren t smoker , 1PPD x 50+ years. Encoun ter for screen ing for malign ant neopla sm of respir atory organs Z12.2. TECHNI QUE: Unenha nced chest CT was perfor med using this instit ution' s low dose CT protoc ol. Sagitt al and rangel l reform ats. This examin ation was perfor med using one or more of the follow ing dose reduct ion techni ques; automa umair exposu re contro l; adjust ment of the Ma AND Kv accord ing to patien t size; iterat fabi recons tructi on techni que. Unless specif ied, no imagin g follow -up is recomm ended for incide ntal findin gs. COMPAR KENIA: No prior study was submit umair for compar kenia. FINDIN GS: DEVICE S:None . LUNG PARENC HYMA:N o pulmon damian airspa ce consol idatio n, suspic ious pulmon damian nodule or abnorm al pulmon damian inters titial patter n. AIRWAY :Retai jaylene secret ions within the trache a and mainst em bronch i. No obviou s intrao cular mass or signif icant bronch iectas is. MEDIAS TINUM: No pathol ogical ly enlarg ed medias tinal lymph nodes. No obviou s hilar adenop athy. Limite d evalua tion of the rocco due to lack of vascul ar contra st. No obviou s esopha geal abnorm ality. HEART/ VASCUL AR STRUCT URES:N o heart chambe r enlarg ement or perica rdial effusi on. No thorac ic aortic aneury sm. Cannot exclud e dissec tion due to lack of vascul ar contra st. No obviou s abnorm ality of the pulmon damian arteri es. Multiv essel athero sclero tic rangel ry calcif icatio ns are presen t. PLEURA /PLEUR AL CAVITY :No pneumo thorax or pleura l effusi on. OSSEOU S STRUCT URES:N o obviou s acute osseou s abnorm ality. Degene rative change s of the thorac ic spine. UPPER ABDOME N:No obviou s acute upper abdomi nal abnorm ality. Cholel ithias is. Limite d imagin g of the upper abdomi nal organs due to lack of contra st and low-do se techni que which are standa rd for this PAGE 1 Signed Report (REGGIE NUED) [facility] Name: [facility] [address] [place], [place] [address]a [employer] Phys: Abner osborne MD, [place] [address] : 1959 Age: 64 Sex: M Acct: [id number] Loc: G.CT PHONE #: [phone] Exam Date: 2024 Status : DEP CLI FAX #: [phone] Rad# [id number] Unit# [id number] Admit Date: 2024 EXAMS: CPT CODE: [id number] CT CHEST LDCT LUNG SCREEN G0297 examin ation. BREAST S/AXIL LAE:Mi ld bilate ral gyneco mastia . IMPRES FREDIS: 1. ACR lung Rads Catego ry 1: negati ve. No nodule s or defini tely benign nodule s. 2. Multiv essel athero sclero tic rangel ry artery calcif icatio ns. 3. Cholel ithias is. Recomm endati on: Contin ue lung cancer screen ing with low-do se chest CT in 12 months . Electr onical ly signed by: Keira Colby DO 2024 10:39 AM EDT RP Workst ation: [id number] Electr onical ly Signed by KEIRA COLBY DO on 2024 at 0904 Report ed and signed by: Nilda COLBY DO CC: Chandni osborne Dictat ed Date/T jaret: 2024 (0904) Techno logist : BERNADETTE KYLE Y Transc ribed Date/T jaret: 2024 (0904) Transc riptio nist: DR.HAL Webber Signat ure Date/T jaret: 2024 (0904) Printe d Date/T jaret: 2024 (1043) BATCH NO: N/A PAGE 2 Signed Report CC'ed Logic: Orderi ng Provid er: GUTTMA Kellen TARIQ Attend ing Provid er: GUTTMA N CHANDNI Referr ing Provid er: GUTTMA N CHANDNI Consul ting Provid er: GUTTMA N CHANDNI [email or web address] Tiro (Centralized Scheduling) [address] [place] [address], [place], [address], 05/24/2025 16:32:51 Result Notes Documentation Provider Name and Address Organization Details Recorded Time Ldct, Chest, For Lung Cancer Screening : [facility] Ce Name: FERNANDEZOLEKSANDR Micaela [address] [place] [address] Phys: [place] [address] : 1960 Age: 64 Sex: M Acct: [id number] Loc: G.CT PHONE #: Exam Date: 03/24/2025 Status: DEP CLI FAX #: Rad# [id number] Unit# [id number] Admit Date: 03/24/2025 EXAMS: CPT CODE: [id number] CT CHEST LDCT LUNG SCREEN G0297 EXAM: CT LUNG SCREENING INDICATION: Lung cancer screening Current smoker, 1PPD x 50+ years. Encounter for screening for malignant neoplasm of respiratory organs Z12.2. TECHNIQUE: Unenhanced chest CT was performed using this institution's low dose CT protocol. Sagittal and coronal reformats. This examination was performed using one or more of the following dose reduction techniques; automated exposure control; adjustment of the Ma AND Kv according to patient size; iterative reconstruction technique. Unless specified, no imaging follow-up is recommended for incidental findings. COMPARISON: No prior study was submitted for comparison. FINDINGS: DEVICES:None. LUNG PARENCHYMA:No pulmonary airspace consolidation, suspicious pulmonary nodule or abnormal pulmonary interstitial pattern. AIRWAY:Retained secretions within the trachea and mainstem bronchi. No obvious intraocular mass or significant bronchiectasis. MEDIASTINUM:No pathologically enlarged mediastinal lymph nodes. No obvious hilar adenopathy. Limited evaluation of the rocco due to lack of vascular contrast. No obvious esophageal abnormality. HEART/VASCULAR STRUCTURES:No heart chamber enlargement or pericardial effusion. No thoracic aortic aneurysm. Cannot exclude dissection due to lack of vascular contrast. No obvious abnormality of the pulmonary arteries. Multivessel atherosclerotic coronary calcifications are present. PLEURA/PLEURAL CAVITY:No pneumothorax or pleural effusion. OSSEOUS STRUCTURES:No obvious acute osseous abnormality. Degenerative changes of the thoracic spine. UPPER ABDOMEN:No obvious acute upper abdominal abnormality. Cholelithiasis. Limited imaging of the upper abdominal organs due to lack of contrast and low-dose technique which are standard for this PAGE 1 Signed Report (CONTINUED) [facility] Ce Name: OLEKSANDR FERNANDEZ Micaela [facility] [place] [employer] Phys: Krishna HUGHES, [place] [address] : 1960 Age: 64 Sex: M Acct: [id number] Loc: G.CT PHONE #: Exam Date: 03/24/2025 Status: DEP CLI FAX #: Rad# [id number] Unit# [id number] Admit Date: 03/24/2025 EXAMS: CPT CODE: [id number] CT CHEST LDCT LUNG SCREEN G0297 examination. BREASTS/AXILLAE:Mild bilateral gynecomastia. IMPRESSION: 1. ACR lung Rads Category 1: negative. No nodules or definitely benign nodules. 2. Multivessel atherosclerotic coronary artery calcifications. 3. Cholelithiasis. Recommendation: Continue lung cancer screening with low-dose chest CT in 12 months. Electronically signed by: Keira Colby DO 03/28/2025 10:39 AM EDT at 0904 Reported and signed by: KEIRA COLBY DO CC: Chandni Keller Dictated Date/Time: 03/28/2025 (0904) Technologist: BERNADETTE TRIPP Transcribed Date/Time: 03/28/2025 (0904) Small Piece Cutter: Electronic Signature Date/Time: 03/28/2025 (0904) Printed Date/Time: 03/28/2025 (1043) BATCH NO: N/A PAGE 2 Signed Report CC'ed Logic: Ordering Provider: KRISHNA TARIQ Attending Provider: KRISHNA TARIQ Referring Provider: KRISHNA TARIQ Consulting Provider: KRISHNA TARIQ Heydi Sabra null, [place] - [facility] 05/24/2025 16:32:51 Problems Name Problem SNOMED Code Status Onset Date Resolution Date Notes Provider Name and Address Organization Details Recorded Time Dyslipidem ia 246059440 Active 2015 Chandni Keller MD [address], [place], [address] , [place] - [facility] 2 19:59:08 Migraine 74820437 Active 2015 Not Available [facility] 1 22:06:20 Diabetic peripheral neuropathy 755927346 Active 2015 Chandni Keller MD [address], [place], [address] , [place] - [facility] 2 19:59:08 Tobacco user 033100723 Active 2016 Chandni Keller MD [address], [place], [address] , [place] [facility] 2 19:59:08 Generalize d osteoarthr itis 314415646 Active 2016 Chandni Keller MD [address], [place], [address] , [place] [facility] 2 19:59:08 Secondary polycythem ia 95639160 Active 2018 Chandni Keller MD [address], [place], [address] , [place] [facility] 2 19:59:08 Hypertensi ve heart disease without congestive heart failure 73990869 Active 2019 Chandni Keller MD [address], [place], [address] , [place] - [facility] 2 19:59:08 Long-term current use of insulin 912693143 Active 2021 Chandni Keller MD [address], [place], [address] , [place] - [facility] 2 19:59:08 Essential hypertensi on 66387494 Active 2021 Chandni Keller MD [address], [place], [address] , [place] - [facility] 2 19:59:08 Reactive airway disease 126570264242 Active 2023 Chandni Keller MD [address], [place], [address] , [place] - [facility] 4 18:48:14 Obstructiv e sleep apnea syndrome 47166718 Active 2023 Chandni Keller MD [address], [place], [address] , [place] - [facility] 4 18:48:14 Ventral incisional hernia 932497204 Active 2023 Chandni Keller MD [address], [place], [address] , [place] - [facility] 4 18:46:22 Well controlled type 2 diabetes mellitus 985693149 Active 2023 Chandni Keller MD [address], [place], [address] , [place] - [facility] 4 18:48:14 Cough 54949624 Active 2023 Celestine Winslow APRN [address], [place], [address] , [place] - [facility] 4 08:58:17 Acute bronchitis 47478944 Active 2023 Celestine Winslow APRN [address], [place], [address] , [place] - [facility] 4 11:15:24 Problem Notes None recorded. Procedures Surgical History Date Name Laterality Status Provider Name and Address Organization Details Recorded Time 05/06/20 24 A1C level 8.0 to 9.0 completed Ananya ADAMS - [facility] 05/06/2024 10:04:08 05/22/20 22 Medication Reconcilliation completed Ananya ADAMS - [facility] 05/22/2022 11:31:27 12/27/19 21 Systolic B/P less than 130 mm Hg completed Ananya Hyde [place] - [facility] 12/27/2020 09:05:27 12/27/19 21 Diastolic B/P less than 80 mm Hg completed Ananya Hyde [place] - [facility] 12/27/2020 09:05:29 05/31/20 20 Systolic B/P less than 130 mm Hg completed Ananya Hyde [place] - [facility] 05/31/2020 09:16:09 05/31/20 20 Diastolic B/P less than 80 mm Hg completed Ananya Hyde [place] - [facility] 05/31/2020 09:16:31 10/31/20 19 Cardiac Cath completed Chandni Keller MD [address], [place], [address], [place] - [facility] 10/31/2019 11:54:32 10/11/20 18 Cardiac Cath completed Chandni eKller MD [address], [place], [address], [place] - [facility] 10/13/2018 16:39:55 01/16/20 17 Cardiac Surgery completed Chandni Keller MD [address], [place], [address], [place] - [facility] 05/04/2017 10:59:55 11/30/18 99 Colonoscopy completed Ananya Hyde [place] - [facility] 05/18/2018 08:41:00 Arthroscopic Surgery completed Shana Antwan [place] - [facility] 10/20/2016 16:52:10 Bowel Resection completed Shana Antwan [place] - [facility] 10/20/2016 16:52:23 Carpal tunnel surgery completed Shana Antwan [place] - [facility] 10/20/2016 16:52:34 Colostomy completed Shana Antwan [place] - [facility] 10/20/2016 16:53:14 Unlisted px femur/knee completed Shana Antwan [place] - [facility] 10/20/2016 16:53:35 Imaging Results None recorded. Procedure Notes None recorded. Medical Equipment None Reported. Allergies Allergen ID Allergen Name Allergen Category Reaction Reaction Severity Criticality Documentation Date Start Date Code Code System Note Provider Name and Address Organization Details Recorded Time 498932 promethaz ine medicatio n Not available Not available Not available 10/18/2025 8745 RxNorm Not Available west - External Data Service - prod 19:24:51 83602 Phenergan medicatio n hallucina tions Not available Not available 09/05/20162007 50657 8 RxNorm Not Available [facility] 6 08:41:16 Medications Name Sig Start Date Stop Date Status Note LastModified by Organization Details LastModified Time Prescript ion - Prior Authoriza tion Request active Not Available Not Available Not Available losartan 50 mg tablet TAKE ONE (1) TABLET EVERY DAY BY ORAL ROUTE. active Not Available Not Available No t Available celecoxib 200 mg capsule TAKE ONE (1) CAPSULE BY MOUTH ONCE DAILY IF NEEDED WITH FOOD active Not Available Not Available No t Available cyclobenz aprine 10 mg tablet TAKE 1 TABLET BY MOUTH THREE (3) TIMES DAILY NEEDED 08/04 completed mood swings Not Available Not Available Not Available atorvasta tin 40 mg tablet TAKE ONE (1) TABLET BY MOUTH ONCE DAILY active Not Available Not Available No t Available metformin 500 mg tablet take 2 tablets (1,000 mg) by oral route 2 times per day with morning and evening meals for 90 days 05/06 completed metformi n 500 mg oral tablet;R ecorded Status: Recorded on: 07/08/20 12 9:39AM;D iscontin ued Status: Disconti nued on: 05/06/20 13 8:50AM;U ser: [email or web address] ;Est. Completi on: 01/04/20 13;Indic ation: Type 2 Diabetes Mellitus - (03 00);Prin umair: 07/08/20 12 Not Available Not Available Not Available gabapenti n 600 mg tablet TAKE ONE (1) TABLET BY MOUTH THREE TIMES A DAY FOR THREE (3) MONTHS active Not Available Not Available No t Available clindamyc in HCl 300 mg capsule take 1 capsule (300 mg) by oral route 2 times per day for 30 days 01/23 completed clindamy cheryl HCl 300 mg oral capsule; Prescrib e Status: Prescrib ed on: 08/14/20 14 5:09PM;D iscontin ued Status: Disconti nued on: 01/23/20 15 8:28AM;U ser: [email or web address] ;Est. Completi on: 09/13/20 14;Pharm acyVerif ied: 08/14/20 14 5:09PM Not Available Not Available Not Available cefaclor 500 mg capsule take 1 capsule (500 mg) by oral route every 8 hours for 10 days 03/26 completed cefaclor 500 mg oral capsule; Recorded Status: Recorded on: 07/23/20 09 10:30AM; Disconti nued Status: Disconti nued on: 03/26/20 10 9:49AM;U ser: [email or web address] ;Est. Completi on: 08/02/20 09;Print ed: 07/23/20 Not Available Not Available Not Available cetirizin e 10 mg tablet TAKE ONE (1) TABLET EVERY DAY BY ORAL ROUTE NEEDED. active Not Available Not Available No t Available Topamax 25 mg tablet take 3tablets (75 mg) by oral route one time per day 03/26 completed Topamax 25 mg oral tablet;R ecorded Status: Recorded on: 12/25/19 09 1:40PM;D iscontin ued Status: Disconti nued on: 03/26/20 10 9:49AM;U ser: estepl Not Available Not Available Not Available azithromy cheryl 250 mg tablet TAKE 2 TABLETS TODAY THEN TAKE 1 TABLET DAILY FOR THE NEXT 4 DAYS 04/17 completed Not Available Not Available Not Available ibuprofen 800 mg tablet take 1 tablet (800 mg) by oral route 3 times per day with food 03/26 completed ibuprofe n 800 mg oral tablet;R ecorded Status: Recorded on: 12/19/19 09 11:41AM; User: Heaven Stoll on: 12/19/19 Not Available Not Available Not Available benzonata te 200 mg capsule TAKE ONE (1) CAPSULE THREE (3) TIMES A DAY BY ORAL ROUTE NEEDED FOR FIVE (5) DAYS. 04/17 completed Not Available Not Available Not Available Vicodin 5 mg-500 mg tablet take 1 tablet by oral route every 4-6 hours as needed for pain 03/26 completed Vicodin 5-500 mg oral tablet;R ecorded Status: Recorded on: 12/25/19 09 2:02PM;D iscontin ued Status: Disconti nued on: 03/26/20 10 9:49AM;U ser: [email or web address] ;Est. Completi on: 12/25/19 09 Not Available Not Available Not Available hydrocodo ne 5 mg-acetam inophen 325 mg tablet 05/04 completed Not Available Not Available Not Available meloxicam 15 mg tablet TAKE 1 TABLET BY MOUTH EVERY DAY 06/18 completed Not Available Not Available Not Available prednison e 20 mg tablet TAKE ONE (1) TABLET TWICE A DAY BY ORAL ROUTE FOR SIX (6) DAYS. 04/17 completed Not Available Not Available Not Available lovastati n 40 mg tablet take 2 tablets (80 mg) by oral route once daily with the evening meal for 90 days 08/20 completed lovastat in 40 mg oral tablet;R ecorded Status: Recorded on: 01/16/20 11 8:27AM;D iscontin ued Status: Disconti nued on: 08/20/20 11 8:34PM;U ser: kulwant CamargoEstMakayla Simmonsi on: 07/15/20 11;Indic ation: Hypercho lesterol emia - (2720 );Prin umair: 01/16/20 11 Not Available Not Available Not Available gabapenti n 400 mg capsule TAKE ONE (1) CAPSULE BY MOUTH TWICE DAILY 05/22 completed Not Available Not Available Not Available clopidogr el 75 mg tablet TAKE ONE (1) TABLET BY MOUTH ONCE DAILY active Not Available Not Available No t Available aspirin 81 mg tablet,de layed release TAKE 1 TABLET BY MOUTH ONCE DAILY 2019 active Not Available Not Available Not Avai lable simvastat in 40 mg tablet 1 po qHS 11/15 completed simvasta tin 40 mg oral tablet;R ecorded Status: Recorded on: 09/14/20 08 2:23PM;D iscontin ued Status: Disconti nued on: 11/15/20 08 11:08AM; User: kulwant Vasquez on: 09/09/20 09;Print ed: 09/14/20 08 Not Available Not Available Not Available Lipitor 20 mg tablet take 1 tablet (20 mg) by oral route once daily for 90 days 07/12 completed Lipitor 20 mg oral tablet;R ecorded Status: Recorded on: 07/08/20 12 9:39AM;D iscontin ued Status: Disconti nued on: 07/12/20 12 8:30AM;U ser: [email or web address] ;Est. Completi on: 01/04/20 13;Print ed: 07/08/20 12 Not Available Not Available Not Available bisoprolo l fumarate 5 mg tablet TAKE ONE (1) TABLET BY MOUTH EVERY DAY active Not Available Not Available No t Available nadolol 20 mg tablet take 1/2 tablet (10 mg) by oral route once daily for 2 weeks and then increase to 1 tab qd for migraine prophyla xis 01/14 completed nadolol 20 mg oral tablet;R ecorded Status: Recorded on: 03/26/20 10 10:08AM; Disconti nued Status: Disconti nued on: 01/14/20 11 9:20AM;U ser: guttmann ;Est. Completi on: 09/22/20 10;Print ed: 03/26/20 10 Not Available Not Available Not Available Zofran 4 mg tablet take 1-2 tablets (4-8 mg) by oral route every 8 hours prn N/V 05/06 completed Zofran (as hydrochl oride) 4 mg oral tablet;R ecorded Status: Recorded on: 01/04/20 13 3:55PM;D iscontin ued Status: Disconti nued on: 05/06/20 13 8:50AM;U ser: guttmann ;Est. Completi on: 01/09/20 13;Print ed: 01/04/20 13 Not Available Not Available Not Available ciproflox acin 0.3 % eye drops INSTILL 1 DROP INTO AFFECTED EYE(S) BY OPHTHALM IC ROUTE EVERY 2 HOURSWHI LE AWAKE FOR 2 DAYS THEN 1 DROP EVERY 4 HRS WHILE AWAKE FOR 5 DAYS 05/30 completed Not Available Not Available Not Available cephalexi n 500 mg capsule TAKE ONE (1) CAPSULE THREE (3) TIMES DAILY TILL GONE. TAKE WITH FOOD. 01/21 completed Not Available Not Available Not Available erythromy cheryl 5 mg/gram (0.5 %) eye ointment APPLY 1 CM RIBBON INTO THE LOWER CONJUNCT IVAL SAC(S) IN THE AFFECTED EYE(S) BY OPHTHALM IC ROUTE 3 TIMES PER DAY 04/20 completed Not Available Not Available Not Available metformin 1,000 mg tablet TAKE ONE (1) TABLET TWICE A DAY BY ORAL ROUTE WITH MEAL(S). active Not Available Not Available No t Available Robaxin-7 50 750 mg tablet take 1 tablet (750 mg) by oral route every 6 hours prn for 30 days 01/23 completed Robaxin- 750 750 mg oral tablet;P rescribe Status: Prescrib ed on: 11/17/20 13 11:11AM; Disconti nued Status: Disconti nued on: 01/23/20 15 8:28AM;U ser: kulwant ;Est. Completi on: 05/16/20 14;Pharm acyVerif ied: 11/17/20 13 11:11AM Not Available Not Available Not Available nicotine 21 mg/24 hr daily transderm al patch 05/31 completed Pt has not started yet Not Available Not Available Not Available gabapenti n 300 mg capsule take 1 capsule (300 mg) by oral route qhs for 3 days, then 1 cap bid for 3 days, then 1 cap 3 times per day 11/17 completed gabapent in 300 mg oral capsule; Prescrib e Status: Prescrib ed on: 11/07/20 13 4:49PM;D iscontin ued Status: Disconti nued on: 11/17/20 13 11:09AM; User: kulwant Ward Completi on: 12/07/19 14;Pharm acyVerif ied: 11/07/20 13 4:49PM Not Available Not Available Not Available monteluka st 10 mg tablet TAKE ONE (1) TABLET BY MOUTH ONCE DAILY active Not Available Not Available No t Available albuterol sulfate HFA 90 mcg/actua tion aerosol inhaler INHALE TWO (2) PUFFS EVERY FOUR (4) HOURS BY INHALATI ON ROUTE NEEDED FOR 30 DAYS.prn 04/17 completed Not Available Not Available Not Available Lomotil 2.5 mg-0.025 mg tablet take 2 tablets (5 mg) by oral route 4 times per day as needed 05/06 completed Lomotil 2.5-0.02 5 mg oral tablet;R ecorded Status: Recorded on: 01/04/20 13 3:55PM;D iscontin ued Status: Disconti nued on: 05/06/20 13 8:50AM;U ser: guttmann ;Est. Completi on: 01/09/20 13;Indic ation: Diarrhea - (16.7879 10) Not Available Not Available Not Available ipratropi um bromide 42 mcg (0.06 %) nasal spray Nicholson 2 sprays 3 times a day by intranas al route as needed. 01/16 completed Not Available Not Available Not Available Actos 45 mg tablet take 1 tablet by mouth once daily 11/17 completed Actos 45 mg oral tablet;R ecorded Status: Recorded on: 03/17/20 13 4:33PM;D iscontin ued Status: Disconti nued on: 11/17/20 13 11:09AM; User: janeth espinal;Est. Completi on: 05/16/20 13 Not Available Not Available Not Available cefdinir 300 mg capsule take 2 capsules (600 mg) by oral route once daily for 14 days 08/21 completed cefdinir 300 mg oral capsule; Prescrib e Status: Prescrib ed on: 01/23/20 15 8:53AM;D iscontin ued Status: Disconti nued on: 08/21/20 15 2:20PM;U ser: guttmann ;Est. Completi on: 02/07/20 15;Pharm acyVerif ied: 01/23/20 15 8:53AM Not Available Not Available Not Available fluticaso ne propionat e 50 mcg/actua tion nasal spray,yessenia pension SPRAY ONE (1) SPRAY EVERY DAY BY INTRANAS AL ROUTE FOR 30 DAYS. 03/05 completed Not Available Not Available Not Available lisinopri l 2.5 mg tablet TAKE ONE (1) TABLET BY MOUTH ONCE DAILY 01/20 completed inreased K+ Not Available Not Available Not Available loratadin e 10 mg tablet TAKE ONE (1) TABLET BY MOUTH EVERY DAY NEEDED 06/29 completed Not Available Not Available Not Available Test Strips tests bid-tid 01/14 completed Test Strips In Vitro Strip In Vitro;Re corded Status: Recorded on: 01/14/20 11 10:07AM; Disconti nued Status: Disconti nued on: 01/14/20 11 10:12AM; User: [email or web address] ;Est. Completi on: 12/10/19 12;Indic ation: - (-5);Radha nted: 01/14/20 11 Not Available Not Available Not Available OneTouch UltraSoft Lancets active Not Available Not Available Not Available Fish Oil 1500 ,1 po qday 06/26 completed 04/2022 held . OTC - Fish Oil oral;Rec orded Status: Recorded on: 01/23/20 15 8:28AM;U ser: [email or web address] r Not Available Not Available Not Available ranolazin e ER 500 mg tablet,ex tended release,1 2 hr take 1 tablet by mouth twice a day 12/04 completed CARDIOLO GY Not Available Not Available Not Available Levemir FlexPen 100 unit/mL (3 mL) solution subcutane ous insulin pen INJECT 36 UNITS SUBCUTAN EOUSLY AT BEDTIME 12/02 completed Not Available Not Available Not Available OneTouch UltraMini kit use as directed for 30 days active Not Available Not Available No t Available sitaglipt in phosphate 100 mg tablet take 1 tablet (100 mg) by oral route once daily for 30 days 2024 active Not Available Not Available Not Avai lable Glutose-1 5 40 % oral gel NEEDED FOR LOW BLOOD SUGAR active Not Available Not Available No t Available Janumet 50 mg-1,000 mg tablet TAKE ONE (1) TABLET BY MOUTH TWICE DAILY 10/13 completed Not Available Not Available Not Available Lantus Solostar U-100 Insulin 100 unit/mL (3 mL) subcutane ous pen INJECT 28-36 UNITS UNDER THE SKIN EACH EVENING active Not Available Not Available No t Available ranolazin e ER 1,000 mg tablet,ex tended release,1 2 hr TAKE ONE (1) TABLET BY MOUTH TWICE DAILY active Not Available Not Available No t Available Vitamin D 2,000 unit capsule take 1 capsule by oral route QD 01/14 completed Replaced /Retired Drug 2,000 unit oral capsule; Recorded Status: Recorded on: 03/29/20 10 8:23AM;D iscontin ued Status: Disconti nued on: 01/14/20 11 9:20AM;U ser: [email or web address] ;Est. Completi on: 09/25/20 10;Indic ation: Vitamin D Deficien cy - () Not Available Not Available Not Available prasugrel HCl 10 mg tablet Take 1 tablet every day by oral route as directed for 30 days. 11/25 completed Not Available Not Available Not Available OneTouch Delica Lancets 33 gauge Take 1 each twice a day by miscell. route as directed for 30 days. active Not Available Not Available No t Available OneTouch Verio test strips TEST THREE (3) TIMES DAILY active Not Available Not Available No t Available omega 3 183.3 mg-dha 75 mg-epa 91.6 mg-fish oil 306 mg capsule Take 1 capsule every day by oral route as directed . 12/27 completed TAKING? Not Available Not Available Not Available Farxiga 5 mg tablet Take 1 tablet every day by oral route. 05/18 completed Not Available Not Available Not Available Jardiance 25 mg tablet TAKE ONE (1) TABLET BY MOUTH EVERY DAY active Not Available Not Available No t Available Trulicity 1.5 mg/0.5 mL subcutane ous pen injector INJECT 0.5 ML EVERY WEEK BY SUBCUTAN EOUS ROUTE. 12/03 completed Not Available Not Available Not Available Trulicity 0.75 mg/0.5 mL subcutane ous pen injector INJECT 0.5 ML EVERY WEEK BY SUBCUTAN EOUS ROUTE. active Not Available Not Available No t Available TRUEplus Pen Needle 32 gauge x 5/32 Take 1 needle every day by miscell. route for 30 days. active Not Available Not Available No t Available Trelegy Ellipta 100 mcg-62.5 mcg-25 mcg powder for inhalatio n INHALE ONE (1) PUFF EVERY DAY BY INHALATI ON ROUTE FOR 30 DAYS. prn 01/21 completed Not Available Not Available Not Available Ozempic 0.25 mg or 0.5 mg (2 mg/1.5 mL) subcutane ous pen injector 0.25 mg sq qweek x 4 weeks, the 0.5 mg sq qweek 10/27 completed Not Available Not Available Not Available OneTouch Ultra Blue Test Strip active Not Available Not Available Not Available Trulicity 3 mg/0.5 mL subcutane ous pen injector INJECT THREE (3) MG EVERY WEEK BY SUBCUTAN EOUS ROUTE. 03/17 completed Not Available Not Available Not Available Ozempic 0.25 mg or 0.5 mg (2 mg/3 mL) subcutane ous pen injector active Not Available Not Available Not Available Ultra-Fin e Pen Needle 32 gauge x 1/4 USE TO INJECT INSULIN ONCE DAILY DIRECTED active Not Available Not Available No t Available Vitals Date Recorded Body height Body mass index (BMI) Body weight Body temperature Heart rate Oxygen saturation Respiratory rate Systolic And Diastolic Provider Name and Address Organization Details Last Updated DateTime 4 175.26 cm 23.6 kg/m2 01921.7 8 g 98.3 [degF] 71 /min 98 % 18 /min 160/88 mm[Hg] Megan Guan [place] - [facility] 4 10:59:18 Date Recorded Body height Body mass index (BMI) Body weight Heart rate Oxygen saturation Systolic And Diastolic Provider Name and Address Organization Details Last Updated DateTime 5 175.26 cm 24.7 kg/m2 29592.3 3 g 53 /min 96 % 138/60 mm[Hg] Marbella Anderson [place] - [facility] 5 09:39:46 Date Recorded Body height Body mass index (BMI) Body weight Body temperature Respiratory rate Heart rate Oxygen saturation Systolic And Diastolic Provider Name and Address Organization Details Last Updated DateTime 4 175.26 cm 23.4 kg/m2 84526.6 4 g 97.8 [degF] 20 /min 52 /min 94 % 124/70 mm[Hg] Ananya Mcmillan [place] - [facility] 4 09:17:47 Date Recorded Body height Heart rate Body mass index (BMI) Body weight Systolic And Diastolic Provider Name and Address Organization Details Last Updated DateTime 08/04/2025 175.26 cm 48 /min 24.7 kg/m2 12021.93 g 110/70 mm[Hg] Norma Doe [place] - [facility] 08/04/2025 08:20:04 Date Recorded Body height Body mass index (BMI) Body weight Body temperature Heart rate Oxygen saturation Respiratory rate Systolic And Diastolic Provider Name and Address Organization Details Last Updated DateTime 4 175.26 cm 22.9 kg/m2 59546.8 2 g 98.5 [degF] 60 /min 96 % 20 /min 130/60 mm[Hg] Ananya Mcmillan [place] - [facility] 4 08:13:37 Social History Question Answer Notes LastModified by Embibeizat ion Details LastModified Time Tobacco Smoking Status Current Every Day Smoker Shana Moncada [place], [place] - [facility] 10/20/2016 16:49:13 Do You Have An Advance Directive? Yes Information not available 02/13/2020 Are You Blind Or Do You Have Difficulty Seeing? No Information not available 05/18/2018 What Is Your Level Of Caffeine Consumption? Occasional Information not available 05/31/2020 Are You Deaf Or Do You Have Serious Difficulty Hearing? No Information not available 05/18/2018 Which Illicit Or Recreational Drugs Have You Used? None Information not available 02/13/2020 Hard Of Hearing Or Deaf In One Or Both Ears? No Information not available 05/18/2018 Legally Blind In One Or Both Eyes? No Information no t available 05/18/2018 What Was The Date Of Your Most Recent Tobacco Screening? 08/04/2025 Information not available 08/04/2025 How Many Children Do You Have? 3 Information not available 05/31/2020 What Is Your Relationship Status? Information not available 10/20/2016 Seat Belts Used Routinely Yes Information not available 05/18/2018 Smoke Alarm In Home Yes Information not available 05/18/2018 How Much Tobacco Do You Smoke? 1 PPD Information not available 10/20/2016 Has Tobacco Cessation Counseling Been Provided? Yes Information not available 05/18/2018 On What Date Was Tobacco Cessation Counseling Provided? 08/04/2025 Information not available 08/04/2025 Do You Have Difficulty Walking Or Climbing Stairs? No Information not available 05/18/2018 Sex: Unknown Functional Status Question Answer Note LastModified by Organizat ion Details LastModified Time Do you use any illicit or recreational drugs? No Information not available 05/22/2022 Do you or have you ever used any other forms of tobacco or nicotine? No Information not available 08/04/2023 What is your level of alcohol consumption? None Information not available 10/20/2016 Do you or have you ever used smokeless tobacco? Never used smokeless tobacco [id number] Information not available 03/12/2021 Are you currently employed? Yes Information not available 05/18/2018 Do you have transportation difficulties? No Information not available 05/22/2022 Are you able to walk independently without assistance or assistive devices? YESWOREST Information not available 02/13/2020 Do you have difficulty doing errands alone? No Information not available 05/18/2018 Are you able to care for yourself independently? 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 No Information not available 05/18/2018 Do you or have you ever used e-cigarettes or vape? Never used electronic cigarettes Information not available 02/13/2020 Mental Status Question Answer Note LastModified by Organization D etails LastModified Time Do you have difficulty concentrating, remembering or making decisions? No Information no t available 05/18/2018 Family History Relationship Description Onset Age of this Age Resolved Age Notes LastModified by Organization Details LastModified Time Mother Carcinoma in situ of breast Not available 2015 16:47:32 Mother Type 2 diabetes mellitus Not available 2015 16:48:14 Brother Cerebral palsy Not available 2015 16:47:55 Medical History Condition Response Pancreatitis N Coronary Artery Disease N Other N Gout N Atrial Fibrillation N congenital heart disease N Blood Diseases N Kidney Stones N Hyperthyroidism N Rheumatoid arthritis N Blood Transfusion N Erectile Dysfunction N amputation N Skin Lesions N COPD N Depression N Pneumonia N Incontinence N Murmur N Edema N Alzheimer's Disease N Migraine Headaches Y Tobacco Abuse N Anxiety Disorder N Muscle, Joint, or Bone Problems N Hemorrhoids N Obesity N Vision or Eye Problems N Restless Leg Syndrome N Arthritis N Infertility N Polyps N Carpal Tunnel N Mental Disorder N Acid Reflux (GERD) N Cancer N Stroke N Varicosities N Tendonitis N Crohn's Disease N Hypercholesterolemia N Skin Cancer N Fibromyalgia N Headaches N Anal Fissure N Irritable Bowel Syndrome N Kidney Disease N Heart Problems N Ear or Hearing Problems N Hospitalizations N Gallstones N Kidney or Bladder Problems N Goiter N Acne N Skin Problems N Eating Disorder N Ram's Esophagus N Hypertriglyceridemia N MRSA exposure N Constipation N Embolism N Vitamin B12 Deficiency N Deviated Septum N Tuberculosis N AIDS/HIV N Myocardial Infarction N Asthma N Mitral Valve Disorders N Vertigo N Hepatitis N Thyroid Cancer N Neuropathy N Pulmonary Embolism N History of DVT N Herniated Disc N Chronic Ear Infections N Chicken Pox N Autism Spectrum Disorder (ASD) N Von Willebrands Disease N Thrombophilias N Breast Cancer N Hernia N Plantar Fasciitis N Hospital Admission Other Than N Hypothyroidism N Lung Disease N Defects or Inherited Disease N Developmental or Behavioral Disorders N Breast Problem N Difficulty Swallowing N Ovarian Cyst N Anesthesia Complications N Testosterone Deficiency N Meniere's disease N Head Injury/Concussion N Interstitial Cystitis N Congenital Anomalies N Hypoglycemia N Blood clot N Vitamin D Deficiency Y Cellulitis N Endometriosis N Fracture N Bladder or Kidney Problems N Liver Disease N Panic Disorder N Schizophrenia N Concussion N Spina Bifida N Allergies/Hayfever N Osteoarthritis N Parkinson's Disease N Disc Protrusion N STI N Esophagitis N Angina N Thyroid Problems N GI Problems N ADD/ADHD N Anemia N Multiple Sclerosis N Abnormal PAP N Lumbago N Mental Illness N Psychiatric Illness N Diabetes Y Ovarian Cancer N Bedwetting N Degenerative Disc Disease N Seizures/Epilepsy N Congestive Heart Failure (CHF) N Hyperlipidemia N Syncope N Insomnia N Eczema N Abuse/Domestic Violence N Attention Deficient Disorder N Diverticulitis N Dementia N Ulcerative colitis N Cerebrovascular Disease N Depression N Guillain-Happy N Sleep Apnea N Aneurysm N Bronchitis N Heart Disease N Suicidal Ideation N Pre-Eclampsia N Hypertension Y Osteoporosis N Immunizations Vaccine Type Date Status Note Provider Nam e and Address Organization Details Recorded Time COVID-19, mRNA, LNP-S, PF, 100 mcg/0.5mL dose or 50 mcg/0.25mL dose 2 completed ANGIE Hernandez - [facility] 12/12/2021 12:47:55 influenza, unspecified formulation 1 completed Not Available [facility] 08/04/2023 08:46:23 tetanus toxoid, adsorbed 9 completed Not Available [facility] 08/04/2023 08:46:24 Pneumococcal conjugate PCV20, polysaccharide [id number] conjugate, adjuvant, PF 4 completed Ananya Mcmillan null, [place] - [facility] 01/21/2024 14:58:44 pneumococcal polysaccharide PPV23 6 completed Not Available [facility] 12/17/2019 03:54:16 COVID-19 vaccine, vector-nr, [id number], PF, 0.5 mL 1 completed Barbara Askew null, [place] - [facility] 12/12/2021 12:43:28 Tdap 9 completed Not Available [facility] 12/17/2019 03:55:52 COVID-19, mRNA, LNP-S, bivalent, PF, 50 mcg/0.5 mL or 25mcg/0.25 mL dose 3 completed Ananya Mcmillan null, [facility] 11/24/2023 17:46:42 Past Encounters Encounter ID Performer Location Encounter Start Date Encounter Closed Date Diagnosis/Indication Diagnosis SNOMED-CT Code Diagnosis ICD10 Code Diagnosis IMO Codes Diagnosis Note [id number] [facility] [address] [place] [address] 11/05/2015 00:00:00 [id number] [facility] [address] [place] [address] 07/09/2010 00:00:00 [id number] [facility] [address] [place] [address] 01/14/2011 00:00:00 [id number] [facility] [address] [place] [address] 08/19/2011 00:00:00 [id number] [facility] [address] [place] [address] 07/08/2012 00:00:00 [id number] [facility] [address] [place] [address] 01/19/2012 00:00:00 [id number] [facility] [address] [place] [address] 01/04/2013 00:00:00 [id number] [facility] [address] [place] [address] 03/26/2010 00:00:00 [id number] [facility] [address] [place] [address] 07/08/2012 00:00:00 [id number] [facility] [address] [place] [address] 05/06/2013 00:00:00 [id number] [facility] [address] [place] [address] 05/06/2010 00:00:00 [id number] [facility] [address] [place] [address] 11/17/2013 00:00:00 [id number] [facility] [address] [place] [address] 07/09/2010 00:00:00 [id number] [facility] [address] [place] [address] 02/21/2014 00:00:00 [id number] [facility] [address] [place] [address] 08/14/2014 00:00:00 [id number] [facility] [address] [place] [address] 01/23/2015 00:00:00 [id number] [facility] [address] [place] [address] 11/05/2015 00:00:00 [id number] [facility] [address] [place] [address] 04/30/2009 00:00:00 [id number] [facility] [address] [place] [address] 07/23/2009 00:00:00 [id number] [facility] [facility] [address] [address] 07/23/2009 00:00:00 [id number] [facility] [address] [address] 09/14/2008 00:00:00 [id number] [facility] [address] [address] 03/07/2008 00:00:00 [id number] [facility] [address] [address] 05/11/2008 00:00:00 [id number] [facility] [address] [place] [address] 07/11/2008 00:00:00 [id number] [facility] [address] [place] [address] 12/25/2008 00:00:00 [id number] Chandni Keller MD [address] [place] [address] 10/21/2016 11:20:51 10/21/2016 12:20:45 Hypertensive disorder 43649076 I10 Diabetic p eripheral neuropathy 712221295 E11.40 cont f/u with ENdo Dyslipidemia 002051979 E 78.5 Displaceme nt of lumbar intervertebral disc without myelopathy 45531774 M51.26 he will get back in with specialist when he has the time Essential hypertension 96023893 I10 Administra tion of pneumococcal vaccine 67007745 Z23 Vaccine de clined by patient 7064015260 02 Z28.21 flu [id number] Chandni Keller MD [address] [place] [address] 12/30/2016 09:57:45 12/30/2016 11:19:45 Pre-surgery evaluation 016527638 Z01.818 Diabetes mellitus 376800 09 E11.42 Current te ar of medial cartilage AND/OR meniscus of knee 367357601 S83.241A Electrocar diogram abnormal 395275351 R94.31 Generalize d osteoarthritis 396860044 M15.9 Tobacco user 058226874 Z 72.0 [id number] Chandni Keller MD [address] [place] [address] 05/04/2017 10:09:24 05/04/2017 11:15:19 Acute upper respiratory infection 35609665 J06.9 Dyslipidemia 810252230 E 78.5 Diabetic p eripheral neuropathy 922645998 E11.40 cont f/u with ENdo Displaceme nt of lumbar intervertebral disc without myelopathy 15299556 M51.26 he will get back in with specialist when he has the time Essential hypertension 67722767 I10 Coronary arteriosclerosis in [place] artery 3600057319 107 I25.10 Acute bronchitis 9395054 2 J20.9 Posterior rhinorrhea 758 49210 R09.82 Vitamin D deficiency 347 92307 E55.9 Hordeolum externum of lower eyelid 206088213 H00.495 [id number] Chandni Keller MD [address] [place] [address] 05/18/2018 08:31:02 05/18/2018 10:25:15 Tobacco user 511431605 Z72.0 Generalize d osteoarthritis 950912973 M15.9 Dyslipidemia 895023466 E 78.5 Hypertensive disorder 38 490837 I10 Diabetic p eripheral neuropathy 041713214 E11.40 cont f/u with ENdo Diabetes mellitus 755595 09 E11.42 Displaceme nt of lumbar intervertebral disc without myelopathy 83545773 M51.26 he will get back in with specialist when he has the time Posterior rhinorrhea 758 15701 R09.82 Body mass index 25-29 - overweight 671458902 Z68.27 Low back pain 896872873 M54.5 Hernia of anterior abdominal wall 726776373 K43.9 [id number] Chandni Keller MD [address] [place] [address] 11/25/2018 16:04:29 11/25/2018 18:01:54 Generalized osteoarthritis 645865133 M15.9 Dyslipidemia 365291109 E 78.5 Hypertensive disorder 38 858152 I10 Diabetic p eripheral neuropathy 989726375 E11.40 cont f/u with ENdo Diabetes mellitus 760134 09 E11.42 cont f/u with Endo Body mass index 25-29 - overweight 735479278 Z68.26 Posterior rhinorrhea 758 90815 R09.82 Tobacco user 279668580 Z 72.0 Ventral in cisional hernia 546025131 K43.2 Secondary polycythemia 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 D75.1 [id number] Chandni Keller MD [address] [place] [address] 03/03/2019 14:20:29 03/03/2019 15:13:44 Acute bronchitis 22050681 J20.9 [id number] Chandni Keller MD [address] [place] [address] 07/19/2019 08:16:09 07/19/2019 09:19:49 Tobacco user 288827345 Z72.0 Generalize d osteoarthritis 577587102 M15.9 Dyslipidemia 788659018 E 78.5 Hypertensive disorder 38 972707 I10 Diabetic p eripheral neuropathy 706673433 E11.40 cont f/u with ENdo Diabetes mellitus 447860 09 E11.42 cont f/u with Endo Body mass index 25-29 - overweight 742156594 Z68.26 Polycythem ia vera (clinical) 026539840 D45 following with Heme Allergic rhinitis 926973 04 J30.9 dust Pain of le ft shoulder joint 4133838396 6445705 M25.512 Neck pain 03725083 M54.2 Administra tion of diphtheria, pertussis, and tetanus vaccine 440633961 Z23 [id number] Chandni Keller MD [address] [place] [address] 02/13/2020 09:22:04 02/13/2020 10:16:15 Diabetes mellitus 12017462 E11.42 cont f/u with Endo Generalize d osteoarthritis 719114117 M15.9 Diabetic p eripheral neuropathy 648275483 E11.40 cont f/u with Endo Dyslipidemia 874503500 E 78.5 Hypertensive disorder 38 414824 I10 Hypertensi ve heart disease without congestive heart failure 65507338 I11.9 Tobacco user 309678828 Z 72.0 Secondary polycythemia 32049522 D75.1 Screening for malignant neoplasm of prostate 739974958 Z12.5 [id number] Chandni Keller MD [address] [place] [address] 03/26/2020 11:01:32 03/26/2020 11:23:15 Conjunctivitis 0439077 H10.9 [id number] Chandni Keller MD [address] [place] [address] 05/31/2020 08:45:11 05/31/2020 11:08:45 Generalized osteoarthritis 465390870 M15.9 Diabetes mellitus 363330 09 E11.42 cont f/u with Endo Diabetic p eripheral neuropathy 024281201 E11.40 cont f/u with Endo Dyslipidemia 562906470 E 78.5 Hypertensive disorder 38 187918 I10 Hypertensi ve heart disease without congestive heart failure 28597265 I11.9 Secondary polycythemia 83520867 D75.1 Tobacco user 832560575 Z 72.0 Screening for malignant neoplasm of colon 622961330 Z12.11 Allergic rhinitis 677627 04 J30.9 dust Migraine 89385539 G43.90 9 [id number] Chandni Keller MD [address] [place] [address] 09/21/2020 08:26:55 09/21/2020 09:25:03 Generalized osteoarthritis 525424956 M15.9 Diabetes mellitus 830718 09 E11.42 Diabetic p eripheral neuropathy 542073177 E11.40 cont f/u with Endo Dyslipidemia 085061378 E 78.5 Hypertensive disorder 38 364451 I10 Hypertensi ve heart disease without congestive heart failure 87702280 I11.9 Secondary polycythemia 54003567 D75.1 Tobacco user 037823356 Z 72.0 Screening for malignant neoplasm of colon 966493315 Z12.11 Influenza vaccination declined 542060114 Z28.21 Posterior rhinorrhea 758 19266 R09.82 [id number] Chandni Keller MD [address] [place] [address] 12/27/2020 08:46:37 12/27/2020 09:53:40 Diabetes mellitus 77418870 E11.42 Diabetic p eripheral neuropathy 377937776 E11.40 stable Hypertensive disorder 38 732406 I10 Hypertensi ve heart disease without congestive heart failure 87761968 I11.9 continue care per cardiology Tobacco user 607965073 Z 72.0 Immunization due 2014166 08 Z28.3 encouraged to get shingrix Generalize d osteoarthritis 006699156 M15.9 Allergic rhinitis 156716 04 J30.9 dustdoing well on med [id number] Chandni Keller MD [address] [place] [address] 03/12/2021 09:32:36 03/12/2021 10:49:46 Diabetes mellitus 44097490 E11.42 Diabetic p eripheral neuropathy 692162511 E11.40 stable Hypertensive disorder 38 502585 I10 controlled on meds Hypertensi ve heart disease without congestive heart failure 91835784 I11.9 continue care per cardiology Tobacco user 169593658 Z 72.0 Immunization due 7134664 08 Z28.3 encouraged to get shingrix Generalize d osteoarthritis 920515486 M15.9 Allergic rhinitis 679057 04 J30.9 dustdoing well on med Screening for malignant neoplasm of prostate 903404045 Z12.5 Osteoarthr itis of knee 669254378 M17.9 [id number] Chandni Keller MD [address] [place] [address] 07/25/2021 09:21:48 07/25/2021 10:47:54 Diabetes mellitus 90503616 E11.42 control worse last visit Diabetic p eripheral neuropathy 369623173 E11.40 stable Hypertensive disorder 38 267057 I10 controlled on meds Hypertensi ve heart disease without congestive heart failure 69655579 I11.9 continue care per cardiology Tobacco user 295070624 Z 72.0 Immunization due 6515537 08 Z28.3 encouraged to get shingrix Generalize d osteoarthritis 581038076 M15.9 Allergic rhinitis 671206 04 J30.9 dustmeds not helping much. will switch loratidine to cetirizine today Dyslipidemia 417757028 E 78.5 continue statin tx. plan is to increase atorvastat in dose if not improved Migraine 78225600 G43.90 9 Fatigue 37249749 R53.83 Vitamin D deficiency 347 90743 E55.9 [id number] Angelic Cade APRN [address] [place] [address] 12/12/2021 12:15:58 12/12/2021 12:55:54 Administration of SARS-CoV-2 antigen vaccine 182190662 Z23 [id number] Chandni Keller MD [address] [place] [address] 01/20/2022 09:05:53 01/20/2022 10:06:26 Diabetic peripheral neuropathy 926875911 E11.40 stable Hypertensive disorder 38 080504 I10 controlled on meds Hypertensi ve heart disease without congestive heart failure 53588403 I11.9 continue care per cardiology Tobacco user 612676311 Z 72.0 Immunization due 2116867 08 Z28.3 encouraged to get shingrix Generalize d osteoarthritis 010237004 M15.9 Allergic rhinitis 964600 04 J30.9 dustmeds not helping much. will switch loratidine to cetirizine today Dyslipidemia 736581062 E 78.5 continue statin tx. plan is to increase atorvastat in dose if not improved Migraine 55733297 G43.90 9 Uncontroll ed type 2 diabetes mellitus 424035717 E11.65 A1c 07/25/21 7.7%, Trulicity 0.75 mg qweek added. increased to 1.5 mg qweek. decrease Levemir dose by a 2-4 units every few days. reviewed benefit of trulicity over insulin use Long-term current use of insulin 686485635 Z79.4 [id number] Chandni Keller MD [address] [place] [address] 05/08/2022 09:08:36 05/08/2022 10:27:46 Uncontrolled type 2 diabetes mellitus 426440223 E11.65 A1c 01/20/22 7.2%, Trulicity increased to 1.5 mg qweek last visit. [place] Levemir dose [place] 28 [place] but on the same dose still at home. explained repeatedly that he may be feeling more tired b/c of freq BS drops and it is safe for him to cont to decrease the Levemir dose. his BS can get over 150 or even to 180/200 while we try to make him feel better. if his numbers are running higher wtih decreased Levemir dose, the Trulicity dose can be increased. reviewed benefit of trulicity over insulin use Diabetic p eripheral neuropathy 194884355 E11.40 worsening so will increase to 600 mg bid today and see if helps Hypertensi ve heart disease without congestive heart failure 78788172 I11.9 continue care per cardiology Tobacco user 424642324 Z 72.0 Immunization due 5809371 08 Z28.3 encouraged to get shingrix Generalize d osteoarthritis 883373797 M15.9 Allergic rhinitis 834025 04 J30.9 duststarte d cetirizine Dyslipidemia 922688045 E 78.5 continue statin tx. Long-term current use of insulin 125254321 Z79.4 Essential hypertension 20562524 I10 controlled on meds Screening for malignant neoplasm of prostate 262480645 Z12.5 Muscle pain 60491442 M79 .10 [id number] Chandni Keller MD [address] [place] [address] 05/22/2022 11:25:27 05/22/2022 12:08:48 Acute kidney injury 00090062 N17.9 secondary to dehydratio n. improving. Uncontroll ed type 2 diabetes mellitus 266668991 E11.65 A1c 05/08/22 6.7%, advised he can decrease Levemir dose, keeping fasting BS's < 200. Diabetic p eripheral neuropathy 617380683 E11.40 increased gabapentin to 600 mg bid 05/08/22 Essential hypertension 88239495 I10 controlled on meds Hypertensi ve heart disease without congestive heart failure 53338748 I11.9 continue care per cardiology [id number] Chandni Keller MD [address] [place] [address] 08/19/2022 09:06:56 08/19/2022 11:12:59 Uncontrolled type 2 diabetes mellitus 777202147 E11.65 A1c 05/08/22 6.7%, again advised he can decrease Levemir dose, keeping fasting BS's < 200. Diabetic p eripheral neuropathy 273223525 E11.40 increased gabapentin to 600 mg bid 05/08/22 Essential hypertension 80435995 I10 controlled on meds Hypertensi ve heart disease without congestive heart failure 60256286 I11.9 continue care per cardiology Tobacco user 027068312 Z 72.0 Generalize d osteoarthritis 064855894 M15.9 suggested Voltaren gel OTC Allergic rhinitis 074212 04 J30.9 dusttaking loratidine prn Dyslipidemia 012608563 E 78.5 continue statin tx. Long-term current use of insulin 129762914 Z79.4 Immunization advised 310 029227 Z71.9 encouraged to get shingrix Screening for malignant neoplasm of respiratory tract 624481565 Z12.2 has smoker - >50 pack/yr [id number] Chandni Keller MD [address] [place] [address] 12/02/2022 09:19:42 12/02/2022 10:57:18 Uncontrolled type 2 diabetes mellitus 211189209 E11.65 A1c 08/19/22 6.7%, again advised he can decrease Levemir dose, keeping fasting BS's < 200. I would rather he be higher than too low. will increase Trulicity to 3 mg qweek today. he will cont to decrease Levemir dose. he needs to stop playing with the dose as it is lowering his sugar too much Diabetic p eripheral neuropathy 838182245 E11.40 increased gabapentin to 600 mg bid 05/08/22 Essential hypertension 41904139 I10 controlled on meds Hypertensi ve heart disease without congestive heart failure 73996716 I11.9 continue care per cardiology Tobacco user 012127063 Z 72.0 Immunization advised 310 176641 Z71.9 encouraged to get shingrix Generalize d osteoarthritis 620019093 M15.9 suggested Voltaren gel OTC Allergic rhinitis 753547 04 J30.9 dusttaking loratidine prn Dyslipidemia 367332247 E 78.5 continue atorvastat in 40 mg qd Long-term current use of insulin 094719412 Z79.4 Administra tion of SARS-CoV-2 antigen vaccine 341168499 Z23 he will RTC for this Influenza vaccination declined 853055273 Z28.21 [id number] Chandni Keller MD [address] [place] [address] 03/17/2023 08:23:43 03/17/2023 09:45:02 Uncontrolled type 2 diabetes mellitus 570719921 E11.65 A1c 12/02/22 6.8%, advised he can decrease Levemir dose, keeping fasting BS's < 200. I would rather he be higher than too low. increased Trulicity to 3 mg qweek. Diabetic p eripheral neuropathy 450163918 E11.40 increased gabapentin to 600 mg bid 05/08/22. foot exam 12/02/22 Essential hypertension 44810481 I10 controlled on meds Hypertensi ve heart disease without congestive heart failure 25740111 I11.9 continue care per cardiology Tobacco user 348747751 Z 72.0 Immunization advised 310 278030 Z71.9 encouraged to get shingrix Generalize d osteoarthritis 169522970 M15.9 taking acetaminop hen with some help. offered referral back to Ortho Allergic rhinitis 053496 04 J30.9 dusttaking montelukas t 10 mg qd and loratidine prn Dyslipidemia 623744910 E 78.5 continue atorvastat in 40 mg qd Long-term current use of insulin 188389752 Z79.4 Long-term drug therapy 127237420 Z79.899 Reviewed use of controlled substances ; risk of addiction or tolerance, and possible side effects, moon dizziness and sedation. Patient voiced understand ing. Advised to keep med locked up at home Screening for malignant neoplasm of colon 837088167 Z12.11 refuses again Migraine 45295902 G43.90 9 [id number] Chandni Keller MD [address] [place] [address] 06/26/2023 08:41:02 06/26/2023 11:28:00 Uncontrolled type 2 diabetes mellitus 471950451 E11.65 A1c 03/17/23 6.6%, advised he can decrease Levemir dose, keeping fasting BS's < 200. I would rather he be higher than too low. increased Trulicity to 3 mg qweek. he has been out of it for a few weeks and has been ok Diabetic p eripheral neuropathy 784399969 E11.40 will increased gabapentin to 600 mg tid today. Essential hypertension 54600299 I10 ok today but has been high with wrist monitor. will try to get her a good BP monitor Hypertensi ve heart disease without congestive heart failure 02884500 I11.9 continue care per cardiology Tobacco user 468060087 Z 72.0 Immunization advised 310 579144 Z71.9 encouraged to get shingrix Generalize d osteoarthritis 583698814 M15.9 taking acetaminop hen with some help. offered referral back to Ortho Allergic rhinitis 369697 04 J30.9 dusttaking montelukas t 10 mg qd and loratidine prn with relief Dyslipidemia 183625591 E 78.5 continue atorvastat in 40 mg qd Long-term current use of insulin 706958011 Z79.4 Long-term drug therapy 607339475 Z79.899 Reviewed use of controlled substances ; risk of addiction or tolerance, and possible side effects, moon dizziness and sedation. Patient voiced understand ing. Advised to keep med locked up at home Screening for malignant neoplasm of colon 431724886 Z12.11 refuses again Screening for malignant neoplasm of prostate 576934272 Z12.5 Obstructiv e sleep apnea syndrome 38684702 G47.33 Ventral in cisional hernia 425733141 K43.2 having more pain. would like to talk to surgeon again Sciatica 25704340 M54.30 will ty to get records from [facility] in [place] . had CT. he has improved some Unintentio nal weight loss 724417864 R63.4 [id number] Chandni Keller MD [facility] [address] [place] [address] 08/04/2023 08:43:10 08/04/2023 10:10:32 Uncontrolled type 2 diabetes mellitus 844030088 E11.65 A1c 06/26/23 6.0%, advised he can continue to decrease Levemir dose, keeping fasting BS's < 200. I would rather he be higher than too low. hasn't been able to get Trulicity 3.0 mg lately Diabetic p eripheral neuropathy 413128022 E11.40 taking gabapentin 600 mg tid Essential hypertension 21302980 I10 ok today but has been high with wrist monitor. Hypertensi ve heart disease without congestive heart failure 11157895 I11.9 continue care per cardiology Tobacco user 721300930 Z 72.0 Immunization advised 310 873524 Z71.9 encouraged to get shingrix Generalize d osteoarthritis 096292724 M15.9 taking acetaminop hen with some help. offered referral back to Ortho Allergic rhinitis 569495 04 J30.9 dusttaking montelukas t 10 mg qd and loratidine prn with relief Dyslipidemia 168105219 E 78.5 continue atorvastat in 40 mg qd Long-term current use of insulin 704886816 Z79.4 Long-term drug therapy 151534425 Z79.899 Reviewed use of controlled substances ; risk of addiction or tolerance, and possible side effects, moon dizziness and sedation. Patient voiced understand ing. Advised to keep med locked up at home Screening for malignant neoplasm of colon 650622631 Z12.11 refuses again Obstructiv e sleep apnea syndrome 68443698 G47.33 home sleep study ordered 06/26/23 Ventral in cisional hernia 052637637 K43.2 referred to general surgeon again 06/26/23. he plans to schedule Sciatica 91489839 M54.30 will ty to get records from [facility] in [place] . had CT. he has improved some Body mass index 20-24 - normal 857549094 Z68.22 [id number] Chandni Keller MD [address] [place] [address] 01/21/2024 08:55:15 01/21/2024 10:26:47 Diabetic peripheral neuropathy 018542666 E11.40 taking gabapentin 600 mg tid with some relief of pain Essential hypertension 63030524 I10 controlled Hypertensi ve heart disease without congestive heart failure 19489465 I11.9 continue care per cardiology Tobacco user 991673953 Z 72.0 Immunization advised 310 204300 Z71.9 encouraged to get shingrix and RSV Generalize d osteoarthritis 883178395 M15.9 taking acetaminop hen with some help. offered referral back to Ortho Allergic rhinitis 663335 04 J30.9 dusttaking montelukas t 10 mg qd, fluticason e NS and cetirizine prn with relief Dyslipidemia 929126099 E 78.5 continue atorvastat in 40 mg qd Long-term current use of insulin 360097843 Z79.4 Long-term drug therapy 114037576 Z79.899 Reviewed use of controlled substances ; risk of addiction or tolerance, and possible side effects, moon dizziness and sedation. Patient voiced understand ing. Advised to keep med locked up at home Screening for malignant neoplasm of colon 063484204 Z12.11 refuses again Obstructiv e sleep apnea syndrome 88790541 G47.33 he saw pulm and they offered APAP but he deferred Ventral in cisional hernia 164917628 K43.[address] Banerjee in Aug, - plan to observe Reactive a irway disease 2044959641 06 J45.909 seeing pulmonolog y. using albuterol HFA. didn't tolerate Trelegy Well contr olled type 2 diabetes mellitus 799642402 E11.9 A1c 06/26/23 6.0%, advised to decrease Levemir to 18 units and leave it there and see what happens. I would rather he be higher than too low. he can go lower if he continues to have hypoglycem ia. he should stop playing with the dosing Administra tion of pneumococcal vaccine 44763016 Z23 Right side sciatica 3202 784193 06035 M54.31 taking acetaminop hen with some help. offered referral to PT - he says he can't do it Bilateral shoulder joint pain [id number] 0456430 M25.511 will see if steroids help. offered PT - he says he can't do it. offered referral back to Ortho - deferred for now Thoracic back pain 60981 8004 M54.6 Fatigue 55553364 R53.83 advised this may improve if he stops letting his sugar drop 5001161 Celestine Winslow APRN [address] [place] [address] 01/27/2024 10:49:12 01/27/2024 11:25:57 Cough 17565153 R05.9 Body mass index 20-24 - normal 736577713 Z68.23 Acute bronchitis 2428444 2 J20.9 - Patient presents with cough and chest congestion for 4 days. No signs of pneumonia or other complicati ons.- Prescribe a 5-day course of azithromyc in; patient just finished prednisone regime today so will hold on steroids for symptoms relief- Advise patient to drink plenty of fluids, rest, and avoid smoking.- follow up in 1 week if symptoms persist or sooner for worsening of symptoms [id number] Chandni Keller MD [address] [place] [address] 05/06/2024 08:59:00 05/06/2024 10:26:11 Diabetic peripheral neuropathy 018427317 E11.40 taking gabapentin 600 mg tid with some relief of pain Essential hypertension 04905600 I10 controlled on bisoprolol 5 mg ad Hypertensi ve heart disease without congestive heart failure 95337881 I11.9 continue care per cardiology Tobacco user 509541595 Z 72.0 Immunization advised 310 521950 Z71.9 encouraged to get shingrix and RSV Generalize d osteoarthritis 624703339 M15.9 taking acetaminop hen with some help. offered referral back to Ortho Allergic rhinitis 405222 04 J30.9 dusttaking montelukas t 10 mg qd, fluticason e NS and cetirizine prn with relief Dyslipidemia 072301683 E 78.5 continue atorvastat in 40 mg qd Long-term current use of insulin 301746682 Z79.4 Long-term drug therapy 410105758 Z79.899 Reviewed use of controlled substances ; risk of addiction or tolerance, and possible side effects, moon dizziness and sedation. Patient voiced understand ing. Advised to keep med locked up at home Screening for malignant neoplasm of colon 164885017 Z12.11 refuses again Obstructiv e sleep apnea syndrome 17918688 G47.33 he saw pulm and they offered APAP but he deferred Ventral in cisional hernia 806936011 K43.[address] Banerjee in Aug, - plan to observe Reactive a irway disease 9084222597 06 J45.909 seeing pulmonolog y. using albuterol HFA. didn't tolerate Trelegy Well contr olled type 2 diabetes mellitus 165325054 E11.9 A1c 6.9% 01/21/24, worse control today, but he has been out of his DM pills for 2-3 weeks and has been stretching out his Levemir again advised that I would rather he be higher than too low. he can go lower if he continues to have hypoglycem ia. he should stop playing with the dosing Right side sciatica 3202 085437 80790 M54.31 taking acetaminop hen with some help. offered referral to PT - he says he can't do it Bilateral shoulder joint pain 5944835323 6647906 M25.511 will see if steroids help. offered PT - he says he can't do it. 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 [address] 08/19/2024 08:07:45 08/19/2024 08:46:24 Diabetic peripheral neuropathy 334873223 E11.40 taking gabapentin 600 mg tid with some relief of pain Essential hypertension 70530550 I10 controlled on bisoprolol 5 mg ad Hypertensi ve heart disease without congestive heart failure 42168133 I11.9 he hasn't been back to cardiology . trying to find him someone new. wants someone closer to home Tobacco user 032045087 Z 72.0 Immunization advised 310 351082 Z71.9 encouraged to get shingrix and RSV Generalize d osteoarthritis 797358526 M15.9 taking acetaminop hen with some help. offered referral back to Ortho Allergic rhinitis 333359 04 J30.9 dusttaking montelukas t 10 mg qd, fluticason e NS and cetirizine prn with relief Dyslipidemia 564433272 E 78.5 continue atorvastat in 40 mg qd Long-term current use of insulin 259391474 Z79.4 Long-term drug therapy 802554333 Z79.899 Reviewed use of controlled substances ; risk of addiction or tolerance, and possible side effects, moon dizziness and sedation. Patient voiced understand ing. Advised to keep med locked up at home Screening for malignant neoplasm of colon 421281246 Z12.11 refuses again Obstructiv e sleep apnea syndrome 87686056 G47.33 he saw pulm and they offered APAP but he deferred Ventral in cisional hernia 047293791 K43.[address] Banerjee in Aug, - plan to observe Reactive a irway disease [id number] 06 J45.909 has seen pulmonolog y. using albuterol HFA. didn't tolerate Trelegy Well contr olled type 2 diabetes mellitus 102931917 E11.9 A1c 8.4% 05/06/24, much worse control, but he had been out of his DM pills for 2-3 weeks and had been stretching out his Levemir again advised that I would rather he be higher than too low. he can go lower if he continues to have hypoglycem ia. 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 sounds like ulnar nerve distributi on [id number] Chandni Keller MD [facility] [address] [place] [address] 03/17/2025 09:29:45 03/17/2025 10:34:17 Diabetic peripheral neuropathy 827106837 E11.40 taking gabapentin 600 mg bid with some relief of pain. advised he can take it more often and encouraged him to take it at least tid. if taking it more often helps more without intolerabl e SE's, can also increase the dose will try to get him more at a time so he doesn't run out on the boat Essential hypertension 71153170 I10 fair control on bisoprolol 5 mg. adding losartan 50 mg qd today Hypertensi ve heart disease without congestive heart failure 22172031 I11.9 he hasn't been back to cardiology . trying to find him someone new. wants someone closer to home Tobacco user 382942627 Z 72.0 Immunization advised [id number] Z71.9 encouraged to get shingrix and RSV Generalize d osteoarthritis 918104834 M15.9 taking acetaminop hen ES 2 bid with some help. he wants to try celebrex again; it helped in the past. offered referral back to Ortho; deferred for now Allergic rhinitis 465021 04 J30.9 dusttaking montelukas t 10 mg qd, fluticason e NS and cetirizine prn with relief Dyslipidemia 205499450 E 78.5 continue atorvastat in 40 mg qd Long-term current use of insulin 135236947 Z79.4 Long-term drug therapy 885570276 Z79.899 Reviewed use of controlled substances ; risk of addiction or tolerance, and possible side effects, moon dizziness and sedation. Patient voiced understand ing. Advised to keep med locked up at home Screening for malignant neoplasm of colon 546401769 Z12.11 refuses again Obstructiv e sleep apnea syndrome 99926269 G47.33 he saw pulm and they offered APAP but he deferred Ventral in cisional hernia 744466811 K43.[address] Banerjee in Aug, - plan to observe Reactive a irway disease [id number] 06 J45.909 has seen pulmonolog y. using albuterol HFA. didn't tolerate Trelegy Well contr olled type 2 diabetes mellitus 451275785 E11.9 A1c 6.8% 08/19/24, improved control again advised that I would rather he be higher than too low. he can go lower if he continues to have hypoglycem ia. 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 starting losartan 50 mg qd today Screening for malignant neoplasm of respiratory tract 128892230 Z12.2 has smoked - >50 pack/yr Prostate s pecific antigen measurement 74613039 Z12.5 171602 Vitamin D deficiency 347 78251 E55.9 45840 not taking vit D [id number] Chandni Keller MD [facility] [address] [place] [address] 08/04/2025 08:06:50 08/04/2025 09:43:38 Diabetic peripheral neuropathy 279088712 E11.40 he is taking gabapentin 600 mg tid regularly; some help Essential hypertension 92281957 I10 fair control on bisoprolol 5 mg. adding losartan 50 mg qd today Hypertensi ve heart disease without congestive heart failure 69409176 I11.9 saw cardiology 04/20/25. f/u in Nov Tobacco user 234679202 Z 72.0 not interested in quitting Immunization advised 310 645825 Z71.9 encouraged to get shingrix and RSV Generalize d osteoarthritis 455662926 M15.9 taking acetaminop hen ES 2 bid with some help. he wants to try celebrex again; it helped in the past. offered referral back to Ortho; deferred for now Allergic rhinitis 043766 04 J30.9 dusttaking montelukas t 10 mg qd, fluticason e NS and cetirizine prn with relief Dyslipidemia 438307211 E 78.5 continue atorvastat in 40 mg qd Long-term current use of insulin 349945657 Z79.4 Long-term drug therapy 533287310 Z79.899 Reviewed use of controlled substances ; risk of addiction or tolerance, and possible side effects, moon dizziness and sedation. Patient voiced understand ing. Advised to keep med locked up at home Screening for malignant neoplasm of colon 349271247 Z12.11 refuses again Obstructiv e sleep apnea syndrome 71751029 G47.33 he saw pulm and they offered APAP but he deferred Ventral in cisional hernia 283320443 K43.[address] Banerjee in Aug, - plan to observe Reactive a irway disease 1682839487 06 J45.909 has seen pulmonolog y. using albuterol HFA. didn't tolerate Trelegy Well contr olled type 2 diabetes mellitus 552966068 E11.9 A1c 7.7%. 03/17/25, worsened control. encouraged to try to do better with his diet sent in Ozempic again in March, - he never got it again advised that I would rather he be higher than too low. he can go lower if he continues to have hypoglycem ia. 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 started losartan 50 mg qd 03/17/25, doing well on it Screening for malignant neoplasm of respiratory tract 490048039 Z12.2 has smoked - >50 pack/yr last LDCT lung - 03/24/25 Vitamin D deficiency 347 24981 E55.9 51870 not taking vit D Disorder o f lumbar disc 411280484 M51.9 763435 we don't have an MRI L-spine. he is interested in back injxns if they would help will try to get an MRI if he does PT - [facility] Health Concerns Section Related Observation LastModified by Organization Detai ls LastModified Time None Recorded Concern Status LastModified by Organization Details LastModified Time None Recorded Advance Directives Directive Y: Payers Insurance Date Sequence Insurance Name Policy Number Policy Horton Covered Member ID Horton Member ID Guarantor Name 08/04/2025 2 [employer] - [facility] Oleksandr Fernandez [id number] Oleksandr Fernandez 08/04/2025 3 [place] [id number] Oleksandr Fernandez [id number] Oleksandr Fernandez 08/04/2025 3 [facility] () Oleksandr Fernandez [id number] Oleksandr Fernandez 08/04/2025 4 [place] Oleksandr Fernandez [id number] Oleksandr Fernandez 08/04/[address] [facility] [place] [facility] (MEDICARE) Oleksandr Fernandez [id number] Oleksandr Fernandez 08/04/2025 1 [employer] [place] Oleksandr Fernandez [id number] Oleksandr Fernandez 11/14/2025 1 [place] [id number] Oleksandr Fernandez [id number] Oleksandr Fernandez 08/04/2025 1 [place] Oleksandr Fernandez [id number] Oleksandr Fernandez 08/04/2025 1 [place] Oleksandr Fernandez [id number] Oleksandr Fernandez Notes Date Note Type Note Provider Name and Address Organization Details Recorded Time 4 text/html ROS as noted in the HPI Oleksandr presents with a chief complaint of cough onset 3-4 days ago. He took the Prevnar 20 vaccine Thursday and started with a cough and chest congestion a day after.The patient explains that their symptoms include cough and chest congestion.Denies pharyngitis, tender cervical lymph nodes, aphagia, , dyspnea, wheezing, fever, chills, hoarseness, rash, rhinorrhea, congestion, otalgia, headache, malaise, myalgias, diarrhea, dysgeusia, dysosmia, nausea, vomitingRelieving factors cough dropsPatient has an associated past history of HTN, T2DM, reactive airwayDenies testing for covid, flu, strep Celestine Winslow, [employer] [address], [place], [address], [place] - [facility] 01/27/2024 11:24:08 4 text/html DiabetesReported by PatientHPIFor compliance, patient reportsnoncompliant with dietbut reportscompliant with medications,compliant with follow-up visits,compliant with home glucose monitoring, andno side effects from medications. For associated symptoms, patient reportsnumbness of feetbut reportsno weight gain,no weight loss,no dizziness,no sweats,no headaches,no confusion,no increased thirst,no increased appetite,no increased urination,no blurred vision, andno calluses on feet. For review finger sticks, patient reportsfasting: <220, usually mid to high 100's. For control, patient reportsusually well controlled,unchanged since last visit,hemoglobin a1c has been less than 7 (a1c 01/21/24 6.9%), andhemoglobin a1c goal is less than 7(medications used: janumet 1 bid, jardiance 25 units qd, levemir 36 units qpm, taking lower doses recentlyunable to get trulicity 3.0 mg qweek). For self care, patient reportsmonitoring glucose daily,seeing eye doctor regularly,checking feet regularly, andtaking aspirin daily.Complications and Co-morbiditiesFor acute complications, patient reportsfrequency of hypoglycemia: no (since he hasn't been taking his meds),time of hypoglycemia: __ (middle of night), andhypoglycemic unawareness: no. For chronic complications, patient reportsdiabetic retinopathy: no,diabetic neuropathy: yes,diabetic nephropathy: no,hypertension: yes,hyperlipidemia: yes,last ophthalmic examination:02/24/22 - will make appt, appt soon,kidney disease: no,dental exam: __ last exam: (yrly), andprior foot ulcers: no. For comorbidities, patient reportscoronary artery disease: yes,claudications/periph eral vascular disease: yes,cabg: no,pci: yes, andstroke: no(follows with dr hunt).ROS as noted in the HPI here for f/u. 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 he also has cut way back on Levemir - didn't have enough. he has been taking < 18 units not taking Trulicity - hasn't been able to get it he was in the ER after a fall off the barge. he slipped. no major injury increased pain in shoulder RLE a no known injury. taking acetaminophen 2-3 3 times with some help, sometimes take advil smoking the same taking qd OTC fish oil and vit D still not eating right on the boat. will have to eat out a lot or frozen foods following with cardiology and pulmonology - - more neuropathy pain at night gabapentin is some help but still painful Chandni Keller MD [address], [place], [address], [place] - [facility] 05/06/2024 11:35:18 4 text/html DiabetesReported by PatientHPIFor compliance, patient reportsnoncompliant with dietbut reportscompliant with medications,compliant with follow-up visits,compliant with home glucose monitoring, andno side effects from medications. For associated symptoms, patient reportsnumbness of feetbut reportsno weight gain,no weight loss,no dizziness,no sweats,no headaches,no confusion,no increased thirst,no increased appetite,no increased urination,no blurred vision, andno calluses on feet. For review finger sticks, patient reportsfastin-114. For control, patient reportsusually well controlled,unchanged since last visit,hemoglobin a1c has been less than 7 (a1c 05/06/24 8.4%, much worse control), andhemoglobin a1c goal is less than 7(medications used: janumet 1 bid, jardiance 25 units qd, levemir 36 units qpm, taking lower doses recently, can go down to 28(unable to get trulicity 3.0 mg qweek)). For self care, patient reportsmonitoring glucose daily,seeing eye doctor regularly,checking feet regularly, andtaking aspirin daily.Complications and Co-morbiditiesFor acute complications, patient reportsfrequency of hypoglycemia: no (since he hasn't been taking his meds),time of hypoglycemia: __ (middle of night), andhypoglycemic unawareness: no. For chronic complications, patient reportsdiabetic retinopathy: no,diabetic neuropathy: yes,diabetic nephropathy: no,hypertension: yes,hyperlipidemia: yes,last ophthalmic examination:02/24/22 - will make appt, appt soon,kidney disease: no,dental exam: __ last exam: (yrly), andprior foot ulcers: no. For comorbidities, patient reportscoronary artery disease: yes,claudications/periph eral vascular disease: yes,cabg: no,pci: yes, andstroke: no(follows with dr hunt).ROS as noted in the HPI here for f/u. last A1c 8.4% 05/06/24, much worse control, but he had been out of his DM pills for 2-3 weeks and had been stretching out his Levemir. this time he has been out of Jardiance for about 5 days not taking Trulicity - hasn't been able to get it numbness in 4th and 5th fingers L hand since last visit smoking the same taking qd OTC fish oil and vit D still not eating right on the boat. will have to eat out a lot or frozen foods. his appetite is good following with cardiology and pulmonology. hasn't been seen recently. he wants a clinical research specialist closer to home more neuropathy pain at night - gabapentin is some help but still painful Chandni Keller MD [address], [place], [address], [place] [facility] 08/19/2024 10:15:45 5 text/html DiabetesReported by PatientHPIFor compliance, patient reportsnoncompliant with dietbut reportscompliant with medications,compliant with follow-up visits,compliant with home glucose monitoring, andno side effects from medications. For associated symptoms, patient reportsnumbness of feetbut reportsno weight gain,no weight loss,no dizziness,no sweats,no headaches,no confusion,no increased thirst,no increased appetite,no increased urination,no blurred vision, andno calluses on feet. For review finger sticks, patient reportsfastin-126. For control, patient reportsusually well controlled,unchanged since last visit,hemoglobin a1c has been less than 7 (a1c 05/06/24 8.4%, much worse control), andhemoglobin a1c goal is less than 7(medications used: janumet 1 bid, jardiance 25 units qd, levemir 36 units qpm, taking lower doses recently, can go down to 28(unable to get trulicity 3.0 mg qweek)). For self care, patient reportsmonitoring glucose daily,seeing eye doctor regularly,checking feet regularly, andtaking aspirin daily.Complications and Co-morbiditiesFor acute complications, patient reportsfrequency of hypoglycemia: yes (down to 60 a couple times),time of hypoglycemia: __ (middle of night), andhypoglycemic unawareness: no. For chronic complications, patient reportsdiabetic retinopathy: no,diabetic neuropathy: yes,diabetic nephropathy: no,hypertension: yes,hyperlipidemia: yes,last ophthalmic examination:09/26/24,kid marsha disease: no,dental exam: __ last exam: (yrly), andprior foot ulcers: no. For comorbidities, patient reportscoronary artery disease: yes,claudications/periph eral vascular disease: yes,cabg: no,pci: yes, andstroke: no(follows with dr hunt).ROS as noted in the HPI here for f/u. last A1c 6.8% 08/19/24, much improved control not taking Trulicity - hasn't been able to get it eyes water a lot smoking the same taking qd OTC fish oil and vit D still not eating right on the boat. will have to eat out a lot or frozen foods. his appetite is good he has seen following with cardiology and pulmonology. hasn't been seen for > 1 yr--------- more neuropathy pain at night - gabapentin is some help but still painful. more pain in his feet if he moves his toes. worse than a charley horse. intense pain. will improve if he moves the foot or toe a certain way. his feet will get very hot at times and even look red. hands stay cold he ran out of gabapentin and he could tell it was helping so restarted it. it only is taking it bid d/t timing at work and he runs out when he is on the boat if he takes it tid more back pain, low back, all the way across. not tender. at rest, worse with activity hip pain with walking Chandni Keller MD [address], [place], [address], [place] - [facility] 03/17/2025 10:59:01 5 text/html DiabetesReported by PatientHPIFor compliance, patient reportsnoncompliant with dietbut reportscompliant with medications,compliant with follow-up visits,compliant with home glucose monitoring, andno side effects from medications. For associated symptoms, patient reportsnumbness of feetbut reportsno weight gain,no weight loss,no dizziness,no sweats,no headaches,no confusion,no increased thirst,no increased appetite,no increased urination,no blurred vision, andno calluses on feet. For review finger sticks, patient reportsfastin-120((158 this morning fasting)). For control, patient reportsusually well controlled,unchanged since last visit,hemoglobin a1c has been 7-8 (a1c 7.7%. 03/17/25, worsened control.), andhemoglobin a1c goal is less than 7(medications used: janumet 1 bid, jardiance 25 units qd, lantus usually 36 units qpm, less when on the boat). For self care, patient reportsmonitoring glucose daily,seeing eye doctor regularly,checking feet regularly, andtaking aspirin daily.Complications and Co-morbiditiesFor acute complications, patient reportsfrequency of hypoglycemia: yes (down to 60 a couple times),time of hypoglycemia: __ (middle of night), andhypoglycemic unawareness: no. For chronic complications, patient reportsdiabetic retinopathy: no,diabetic neuropathy: yes,diabetic nephropathy: no,hypertension: yes,hyperlipidemia: yes,last ophthalmic examination:09/26/24,kid marsha disease: no,dental exam: __ last exam: (yrly), andprior foot ulcers: no. For comorbidities, patient reportscoronary artery disease: yes,claudications/periph eral vascular disease: yes,cabg: no,pci: yes, andstroke: no(follows with dr hunt).ROS as noted in the HPI here for f/u. A1c 7.7%. 03/17/25, worsened control. encouraged to try to do better with his diet sent in BView again in March, - never got it prescribed losartan 50 mg qd for BP and microalbuminuria at last visit he saw cardiology in March - no change in tx. appt in Sep smoking the same taking qd OTC fish oil and vit D still not eating right on the boat. will have to eat out a lot or frozen foods. his appetite is good he has seen following pulmonology. hasn't been seen for > 1 yr having more pain in low back and down legs that will alternate sides - getting worse he is taking gabapentin tid regularly now. it is helping some with his neuropathic pain, but still painful. more numbness in B feet. now constant taking generic tylenol 2 bid prn stopped cyclobenzaprine - was having mood swings Chandni Keller MD [address], [place], [address], [place] - [facility] 08/04/2025 09:56:53
--- OUTSIDE RECORDS SUMMARY | 2025-11-16 06:08 | XMS_ITS | Clinical Summary ---
Author Organization [facility] Address [address], [address] [place] [address] Care Team Providers Care Commercial Credit Reviewer Name Role Phone Unavailable Primary Care Provider Unavailabl e Social History Tobacco Use Types Packs/Day Years Used Date Smoking Tobacco: Never Assessed Sex and Gender Information Value Date Recorded Sex Assigned at Not on file Legal Sex Male 1:24 AM EST Gender Identity Not on file Sexual Orientation Not on file Plan of Treatment Not on file Insurance [employer] Member Subscriber Plan / Payer (Ef fective 2014-Present) Name:Oleksandr Fernandez .1.3 Relation to Subscriber:Self Name:Oleksandr Fernandez .1.3 Payer ID:Not on file Group ID:Not on file Type:Indemnity Address: [address] [place] [address]
--- OUTSIDE RECORDS SUMMARY | 2025-11-16 06:08 | XMS_ITS | Clinical Summary ---
Author Organization [facility] Address [address] [place] [address] Care Team Providers Care Toter Name Role Phone Unavailable Primary Care Provider [...] patient's age to complete this topic Insurance [facility]
--- OUTSIDE RECORDS SUMMARY | 2025-11-16 06:08 | XMS_ITS | Data Portability ---
Author Organization [facility] Address [address] [address] [place] [address] Assessment No assessment recorded. Plan of Treatment Reminders Order Date Submit Date Provider Last Modified By Organization Details Last Modified Time Details Appointments None record ed. Lab None record ed. Referral None record ed. Procedures None record ed. Surgeries None record ed. Imaging None record ed. Medication Orders None record ed. Patient TargetsNo targets recorded. Patient InstructionsNo instructions recorded. Reason for Referral None Reported. Medical Equipment None Reported. Allergies Allergen ID Allergen Name Allergen Category Reaction Reaction Severity Criticality Documentation Date Start Date Code Code System Note Provider Name and Address Organization Details Recorded Time 63499 Phenergan medicatio n rash Not available Not available 03/25/2023 56568 8 RxNorm Estrella Frey MA [address] [place] [address] [place], [address], [facility] 3 15:33:03 Medications Name Sig Start Date Stop Date Status Note LastModified by Organization Details LastModified Time cyclobenzap rine 10 mg tablet TAKE 1 TABLET BY MOUTH THREE (3) TIMES DAILY NEEDED FOR SPASMS active Not Available Not Available No t [...] TAKE 1 TABLET BY MOUTH EVERY DAY active Not Available Not Available No t Available clopidogrel 75 mg tablet TAKE ONE (1) TABLET BY MOUTH ONCE DAILY active Not Available Not Available No t Available bisoprolol fumarate 5 mg tablet TAKE ONE (1) TABLET BY MOUTH EVERY DAY active Not Available Not Available No t Available cephalexin 500 mg capsule TAKE 1 CAPSULE BY MOUTH EVERY EIGHT (8) HOURS FOR 7 DAYS 03/25 completed Not Available Not Available Not Available montelukast 10 mg tablet TAKE ONE (1) TABLET BY MOUTH EVERY DAY active Not Available Not Available No t Available loratadine 10 mg tablet TAKE ONE (1) TABLET BY MOUTH ONCE DAILY IF NEEDED active Not Available Not Available No [...] Not Available Not Available No t Available BD Ultra-Fine Micro Pen Needle 32 gauge x 1/4 USE TO INJECT INSULIN DIRECTED active Not Available Not Available No t Available Trulicity 3 mg/0.5 mL subcutaneou s pen injector active Not Available Not Available Not Available Vitals Date Recorded Body height Body mass index (BMI) Body weight Body temperature Heart rate Respiratory rate Oxygen saturation Pain severity - 0-10 verbal numeric rating [Score] - Reported Systolic And Diastolic Provider Name and Address Organization Details Last Updated DateTime 3 176.53 cm 22.6 kg/m2 83310.8 2 g 97.2 [degF] 70 /min 16 /min 98 % 7 131/76 mm[Hg] Estrella Frey MA [address] [facility] [place], [address], [place] [facility] 3 15:32:26 Social History Question Answer Notes LastModified by Organizat ion Details LastModified Time Tobacco Smoking Status Current Every Day Smoker Estrella Frey MA [address] [place] [address] [place], [address], [facility] 03/25/2023 15:34:01 Do You Have An Advance Directive? Yes [email or web address] Information not available 03/25/2023 Are You Blind Or Do You Have Difficulty Seeing? No [email or web address] Information not available 03/25/2023 What Is Your Level Of Caffeine Consumption? Heavy [email or web address] Information not available 03/25/2023 Are You Deaf Or Do You Have Serious Difficulty Hearing? Yes [email or web address] Information not available 03/25/2023 What Is The Highest Grade Or Level Of School You Have Completed Or The Highest Degree You Have Received? [id number] Information not available 03/25/2023 Which Of Your Hands Is Dominant? Right Information not available 03/25/2023 What Is Your Relationship Status? [email or web address] Information not available 03/25/2023 At What Age Did You Start Smoking Tobacco? 6 [email or web address] Information not available 03/25/2023 How Much Tobacco Do You Smoke? 1 PPD [email or web address] Information not available 03/25/2023 Do You Have Difficulty Walking Or Climbing Stairs? Yes [email or web address] Information not available 03/25/2023 Sex: Unknown Functional Status Question Answer Note LastModified by Organizat ion Details LastModified Time Do you use any illicit or recreational drugs? No [email or web address] Information not available 03/25/2023 Do you or have you ever used any other forms of tobacco or nicotine? No [email or web address] Information not available 03/25/2023 What is your level of alcohol consumption? None [email or web address] Information not available 03/25/2023 Do you have transportation difficulties? No [email or web address] Information not available 03/25/2023 Are you able to walk independently without assistance or assistive devices? YESWOREST [email or web address] Information not available 03/25/2023 Do you have difficulty doing errands alone? No [email or web address] Information not available 03/25/2023 Do you have difficulty dressing, bathing, grooming, or toileting? No [email or web address] Information not available 03/25/2023 Mental Status Question Answer Note LastModified by Organization D etails LastModified Time Do you have difficulty concentrating, remembering or making decisions? No [email or web address] Information no t available 03/25/2023 Family History Nothing Reported. Medical History No medical history recorded. Past Encounters Encounter ID Performer Location Encounter Start Date Encounter Closed Date Diagnosis/Indication Diagnosis SNOMED-CT Code Diagnosis ICD10 Code Diagnosis IMO Codes Diagnosis Note [id number] SANJU Stanley [address] [place] [address] 03/25/2023 14:59:57 04/09/2023 09:01:24 Right side sciatica 0167195285 86401 M54.31 continue with mobic and cyclobenza junito as needed, given handout for sciatic stretches if you decide you would like a referral to physical therapy let me know Health Concerns Section Related Observation LastModified by Organization Detai ls LastModified Time None Recorded Concern Status LastModified by Organization Details LastModified Time None Recorded Advance Directives Directive Y: Payers Insurance Date Sequence Insurance Name Policy Number Policy Horton Covered Member ID Horton Member ID Guarantor Name 04/09/2023 1 [facility] (PPO) [id number] 3 Oleksandr Cottoton [id number] Oleksandr Fernandez Notes Date Note Type Note Provider Name and Address Organization Details Recorded Time 03/25/2023 text/html ROS as noted in the HPI Past Med HX: Diabetes, cardiac stents and lower extremities as well usually goes to [facility] in [place] 4 days ago had an injury to his back, was given cyclobenzaprine and fernando had a CT scan having pain in his right hip and it goes all the way down his right leg and into his right house, no history of this type of injury having a 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
--- OUTSIDE RECORDS SUMMARY | 2025-11-16 06:08 | XMS_ITS | Clinical Summary ---
Author Organization [facility] Address [address] [place] [address] Care Team Providers Care Convalescent Sitter Name Role Phone Cece Keller MD Primary Care Provider Allergies Active Allergy Reactions Criticality Noted Date [...] to Subscriber:Self Name:Oleksandr Fernandez Payer ID:[id number] (NAIC) Type:[facility] Address: [facility] [id number] Member Subscriber Plan / Payer (Ef fective for All Dates) Name:Oleksandr Fernandez Relation to Subscriber:Self Name:Oleksandr Fernandez Micaela Payer ID:[id number] (NAIC) Type:PPO Address: [id number] Care Teams Convalescent Sitter Relationship Specialty Start Date End Date Cece Keller MD [address] [place] [address] PCP - General Family Medicine 07/21/13
--- OUTSIDE RECORDS SUMMARY | 2025-11-16 06:08 | XMS_ITS | Data Portability ---
Author Organization [facility] Address [address] [place] [address] Care Team Providers Care Ship'S Pilot Name Role Phone CHANDNI BENITES Primary Care Provider RAFAEL POZO Customer Support Representative [phone] Assessment Encounter Date Assessment Date Assessment LastModified [...] the disease. I explained common symptoms and card dealer effects of the disease. We discussed diagnostic [...] recorded. Procedures home sleep testing (PROC) 2022 [email or web address] Rodo Carr DO ([facility]), [address] [facility] [address], [place], [address], 19:18:13 Surgeries None recorded. Imaging None recorded. Medication Orders fluticasone propionate 50 mcg/actuati on nasal spray,suspe nsion [address], [address], 10:52:39 Trelegy Ellipta 100 mcg-62.5 mcg-25 mcg powder for inhalation [email or web address], [address], 11:04:37 albuterol sulfate HFA 90 mcg/actuati on aerosol inhaler [address], [address], 10:52:39 Patient TargetsNo targets recorded. Patient Instructions Encounter Date Encounter Id Patient Instructions Last Modified By Organization Details Last Modified Time 09/03/2023 [id number] smoking cessatio n counseling, greater than 3 minutes up to 10 minutes* Not available 09/18/2023 19:18:21 medical record request* - please forward most recent chest ct [email or web address] Not available 09/18/2023 19:18:21 09/04/2023 [id number] smoking cessatio n counseling, greater than 3 minutes up to 10 minutes* [email or web address] Not available 09/18/2023 19:23:49 10/09/2023 [id number] smoking cessatio n counseling, greater than 3 minutes up to 10 minutes* [email or web address] Not available 11/06/2023 15:48:59 Reason for Referral None Reported. Results Created Date Observation Date Name Description Value Unit Range Abnormal Flag Note LastModifiedBy Organization Detail LastModifiedTime 09/04/2009/04/2023 home sleep testi ng (PROC ) No observ ation record ed. [email or web address] Not Available 2022 11:21:40 09/05/2009/03/2023 compl ete PFT w/ [facility] diane metry * No observ ation record ed. [email or web address] Not Available 2022 08:37:11 10/16/2009/18/2022 LDCT, chest , for lung cance r rockye kraig No observ ation record ed. Not Available 2022 12:26:21 Result Notes None recorded. Problems Name Problem SNOMED Code Status Onset Date Resolution Date Notes Provider Name and Address Organization Details Recorded Time Dyspnea 989874312 Active 2022 Sandra Moreno NP [address], [place], [address], [place] [facility] 13:01:39 Hypersomnia 84824312 Active 2022 Sandra Moreno NP [address], [place], [address], [place] [facility] 13:01:46 Fatigue 58411116 Active 2022 Sandra Moreno NP [address], [place], [address], [place] [facility] 13:01:57 Heavy tobacco smoker 1494534095580 03 Active 2022 Sandra Moreno NP [address], [place], [address], [facility] 3 13:02:05 Reactive airway disease 278708410300 Active 2022 Sandra Moreno NP [address], [place], [address], [facility] 3 10:40:22 Allergic rhinitis 74733939 Active 2022 Sandra Moreno NP [address], [place], [address], [facility] 3 10:52:01 Problem Notes None recorded. Medical Equipment None Reported. Allergies Allergen ID Allergen Name Allergen Category Reaction Reaction Severity Criticality Documentation Date Start Date Code Code System Note Provider Name and Address Organization Details Recorded Time 12918 Phenergan medicatio n hallucina tions Not available Not available 09/03/2023 04556 8 [facility] 3 08:53:25 Medications [...] mass index (BMI) Body height Oxygen saturation Heart rate Respiratory rate Systolic And Diastolic Provider Name and Address Organization Details Last Updated DateTime 3 76300.3 g 21.3 kg/m2 175.26 cm 97 % 54 /min 18 /min 148/70 mm[Hg] amisha lloydtree [employer] - [facility] 09:34:28 Date Recorded Body height Provider Name an d Address Organization Details Last Updated DateTime 09/04/2023 175.26 cm amisha lloydtree [employer] [facility] 09/04/2023 09:45:22 Date Recorded Body height Body mass index (BMI) Body weight Oxygen saturation Heart rate Respiratory rate Body temperature Systolic And Diastolic Provider Name and Address Organization Details Last Updated DateTime 3 175.26 cm 21.3 kg/m2 08934.3 g 94 % 57 /min 19 /min 96.6 [degF] 160/66 mm[Hg] Shruti [place] - [facility] 3 10:18:44 Social History Question Answer Notes LastModified by Organizat ion Details LastModified Time Tobacco Smoking Status Current Every Day Smoker amisha lloydzaira [place], [place] - [facility] 09/03/2023 09:36:52 Do You Have An Advance Directive? No [email or web address] Information not available 09/03/2023 Is Your Home Air Conditioned? Yes [email or web address] Information not available 09/03/2023 Do You Have A Medical Power Of Superintendent Quarry? No [email or web address] Information not available 09/03/2023 What Was The Date Of Your Most Recent Tobacco Screening? 10/09/2023 Information not available 10/09/2023 Are There Any Occupational Health Risks Where You Work? Yes [email or web address] Information not available 09/03/2023 What Is Your Current Pack Years? 30ormorepac mirthaears [email or web address] Information not available 09/03/2023 Do You Have Any Pets? Yes Cats, Dogs, Birds [email or web address] Information not available 09/03/2023 What Is Your Relationship Status? [email or web address] Information not available 09/03/2023 At What Age Did You Start Smoking Tobacco? 6 Information not available 10/09/2023 Are There Any Smokers In Your House? Yes [email or web address] Information not available 09/03/2023 How Much Tobacco Do You Smoke? 1 PPD [email or web address] Information not available 09/03/2023 Has Tobacco Cessation Counseling Been Provided? Yes [email or web address] Information not available 09/03/2023 On What Date Was Tobacco Cessation Counseling Provided? 09/03/2023 [email or web address] Information not available 09/03/2023 How Many Years Have You Smoked Tobacco? 50 [email or web address] Information not available 09/03/2023 Have You Recently Traveled Abroad? No [email or web address] Information not available 09/03/2023 Are You Currently In School? No [email or web address] Information not available 09/03/2023 Sex: Unknown Functional Status Question Answer Note LastModified by Organizat ion Details LastModified Time Do you or have you ever used any other forms of tobacco or nicotine? No Information not available 09/03/2023 Are you currently employed? Yes [email or web address] Information not available 09/03/2023 What is your occupation? [employer] [email or web address] Information not available 09/03/2023 Mental Status None recorded. Family History Nothing Reported. Medical History No medical history recorded. Past Encounters Encounter ID Performer Location Encounter Start Date Encounter Closed Date Diagnosis/Indication Diagnosis SNOMED-CT Code Diagnosis ICD10 Code Diagnosis IMO Codes Diagnosis Note [id number] Sandra Moreno NP [facility] [address] [place] [address] [address] [place] [address] 09/03/2023 09:25:14 09/03/2023 10:26:27 Hypersomnia 31512171 G47.10 Heavy tobacco smoker 933 9328023 26101 Z72.0 Fatigue 11658215 R53.83 Dyspnea 698068701 R06.00 [id number] Sandra Moreno NP [address] [place] [address] 09/04/2023 09:44:51 09/04/2023 11:09:41 Hypersomnia 45692243 G47.10 Heavy tobacco smoker 345 8916897 87941 Z72.0 Fatigue 91585430 R53.83 Dyspnea 009295439 R06.00 [id number] Sandra Moreno NP [address] [place] [address] 10/09/2023 10:05:02 10/09/2023 11:06:12 Dyspnea 803188902 R06.00 Hypersomnia 59921761 G47 .10 Heavy tobacco smoker 578 2049688 53441 Z72.0 Fatigue 95879819 R53.83 Reactive a irway disease 2917173816 06 J45.909 Allergic rhinitis 457825 04 J30.9 Health Concerns Section Related Observation LastModified by Organization Detai ls LastModified Time None Recorded Concern Status LastModified by Organization Details LastModified Time None Recorded Advance Directives Directive N: Payers Insurance Date Sequence Insurance Name Policy Number Policy Horton Covered Member ID Horton Member ID Guarantor Name 02/22/2024 1 [place] [id number] 3 Oleksandr Fernandez [id number] Oleksandr Fernandez 02/22/2024 2 FOR LIFE () Oleksandr Fernandez [id number] Oleksandr Fernandez Notes Date Note Type Note [...] on a river boat and exposure at [employer] in the 70s.Denies any fever, chills, nausea, vomiting, or diarrhea. Sandra Moreno NP [address], [place], [address], [facility] 09/03/2023 13:04:39 09/04/2023 [...] Moreno NP [address], [place], [address], [facility] 09/04/2023 11:05:46 10/09/2023 [...] Moreno NP [address], [place], [address], [facility] 10/12/2023 13:56:50
--- OUTSIDE RECORDS SUMMARY | 2025-11-16 06:08 | XMS_ITS ---
Author Name Interface, [email or web address] lity Address [address] [place] [address] Organization [facility] Address [address] [place] [address] Allergies and Adverse Reactions Medication/Group Name Reaction [...] L 4.2 9.1 14.1 High FINAL Marcelo [facility] ([facility]), [address], [address] [facility] [id number] 06/21 CBC w/ auto diff Cristobal # (ANC) 10*3/u L 1.78 5.38 10.63 High FINAL [facility] ([facility]), [address], [address] [facility] [id number] 06/21 CBC w/ auto diff LY # 10*3/u L 1.32 3.57 2.09 FINAL [facility] ([facility]), [address], [address] [facility] [address] 06/21 CBC w/ auto diff MO # 10*3/u L 0.3 0.82 1.34 High FINAL Marcelo [facility] ([facility]), [address], [address] [place] [address] 06/21 CBC w/ auto diff EO # 10*3/u lL 0.04 0.54 0.03 Low FINAL Marcelo [facility] ([facility]), [address], [address] [place] [address] 06/21 CBC w/ auto diff BA # 10*3/u L 0.01 0.08 0.02 FINAL Marcelo [facility] ([facility]), [address], [address] [place] [address] 06/21 CBC w/ auto diff Cristobal % % 34.0 67.9 75.4 High FINAL Marcel[facility] [address], [address] [place] [address] 06/21 CBC w/ auto diff LY % % 21.8 53.1 14.8 Low FINAL Marcelo [facility] ([facility]), [address], [address] [place] [address] 06/21 CBC w/ auto diff MO % % 5.3 12.2 9.5 FINAL Marcel[facility] [address], [address] [place] [address] 06/21 CBC w/ auto diff EO % % 0.8 7.0 0.2 Low FINAL Marcelo [facility] ([facility]), [address], [address] [place] [address] 06/21 CBC w/ auto diff BA % % 0.2 1.2 0.1 Low FINAL Marcelo [facility] ([facility]), [address], [address] [place] [address] 06/21 CBC w/ auto diff RBC 10*6/u L 4.63 6.08 4.90 FINAL Marcelo [facility] ([facility]), [address], [address] [place] [address] 06/21 CBC w/ auto diff HGB g/dL 13.7 17.5 16.0 FINAL [facility] ([facility]), [address], [address] [place] [address] 06/21 CBC w/ auto diff HCT % 40.1 51.0 47.5 FINAL [facility] ([facility]), [address], [address] [place] [address] 06/21 CBC w/ auto diff MCV fL 79.0 92.2 96.9 High FINAL [facility] ([facility]), [address], [address] [place], [place] [address] 06/21 CBC w/ auto diff MCH pg 25.7 32.2 32.7 High FINAL [facility] ([facility]), [address], [address] [place] [address] 06/21 CBC w/ auto diff MCHC g/dL 32.3 36.5 33.7 FINAL [facility] ([facility]), [address], [address] [facility] [address] 06/21 CBC w/ auto diff RDW-C V, % % 11.6 14.4 14.0 FINAL [facility] ([facility]), [address], [address] [facility] [address] 06/21 CBC w/ auto diff PLT 10*3/u L 163.0 337.0 185.0 FINAL [facility] ([facility]), [address], [address] [place], [place] [address] 07/23 Lab Repor t See lead sharepoint developer d Medications Date Name Route Dose [...] Oral orally 5000.0 mcg daily active 12/22 [place] 3-DHA-E PA-Fish Oil Oral Liquid 1,600 mg-500 [...]
--- NOTE | 2025-11-16 06:30 | NM_ITS ---
APPROVED REPORT Exam: Nuclear Stress Test Indication: cad, htn, diabetes, hyperlipidemia, tob use, sob, fatigue Patient Location: Outpatient Stress Tech: Oriana Torre [place] Tech:Eneida Kasper HUNGNilda RT(R)(N) Ht: 5 ft 9 in Wt: 146 lbs HR: 50 bpm BP: 168/55 mmHg BSA: 1.81 m2 TID: 1.16 BMI: 21.5 History: cad, htn, diabetes, hyperlipidemia, tob use, sob, fatigue Procedure: Patient received 0.4 mg of intravenous Lexiscan, resting heart rate 50 bpm, resting blood pressure 168/55 mmHg, with Lexiscan maximum heart rate achieved was 70 bpm which is % of the maximum predicted heart rate and blood pressure was 161/57 mmHg. With Lexiscan, patient denied any complaint of chest pain. Cardiac Stress and Resting SPECT Images: Cardiac Stress and Resting SPECT images were obtained using technetium 99m Myoview 32.9 mCi stress and 10.53 mCi at rest. Resting and stress imaging in supine and prone positions demonstrate a medium sized, moderate, partially reversible perfusion defect in the mid to distal inferior and inferoseptal LV casey. Gated imaging demonstrates mild reduction global LV systolic function. LVEF is calculated at 45%. Conclusion: Medium sized, moderate, partially reversible perfusion defect in the mid to distal inferior and inferoseptal LV casey. Findings are suggestive of reversible ischemia. Gated imaging demonstrates mild reduction global LV systolic function. LVEF is calculated at 45%. Correlation with new or recent TTE is suggested. Electronically signed by : Donita Jade MD 11/16/2025 13:19:37
[2025-11-16 08:00] VITALS: BP 168/55; PULSE 46; RESP 14
--- NOTE | 2025-11-16 09:00 | CT_ITS ---
FINAL REPORT TECHNIQUE: Post contrast axial imaging of the aorta and bilateral lower extremity was obtained and reviewed. This study was performed with techniques to keep radiation doses as low as reasonably achievable (ALARA). Individualized dose reduction techniques using automated exposure control or adjustment of mA and/or kV according to the patient's size were employed. CLINICAL HISTORY: PAD, BLE pain COMPARISON: None FINDINGS: The celiac axis, SMA, and KALEN are patent. There are dense vascular calcifications of the abdominal aorta and iliac vessels. Bilateral common iliac artery stents are present without significant stenosis. External iliac arteries are patent. Right: Dense vascular calcification of the right common femoral artery with up to 70% stenosis. Bulky calcifications identified throughout the right SFA, more evident at the adductor canal, with up to 70% stenosis. Calcified mid and proximal popliteal artery with up to 80% stenosis. The trifurcation is patent. Dominant runoff to the right foot is via the anterior and posterior tibial arteries. Left: Dense calcification in the common femoral artery with up to 80% stenosis. Scattered calcifications are noted throughout the SFA, particularly of the adductor canal, with up to 70% stenosis. There is 60% stenosis of the mid left popliteal artery. The trifurcation is patent. There is two-vessel runoff to the foot via the anterior and posterior tibial arteries. Review of the remaining abdomen and pelvis demonstrates the lung bases are clear. There is a multitude of gallstones in the dependent portion of the gallbladder which are calcified. There is a 12 mm cyst in the anterior right lobe of the liver. The spleen and pancreas are unremarkable. Mild bilateral adrenal hyperplasia is noted. The kidneys are unremarkable. Urinary bladder is normal in size and configuration. The appendix is unremarkable. No pelvic mass or inflammation identified. IMPRESSION: Significant stenosis in the common femoral arteries, adductor canals, and popliteal arteries bilaterally with no definite segmental occlusion. Stented common iliac arteries are patent. There does not appear to be significant inflow disease. Calcified gallstones in the gallbladder. Reviewed, Interpreted and Dictated by Jordin Sexton MD Transcribed by Cici Hunter Authenticated and [facility]
--- NOTE | 2025-11-16 09:45 | CA_ITS ---
APPROVED REPORT EXAM: Comprehensive 2D, Doppler, and color-flow Echocardiogram Four H Agent: Salud Bella RDCS Ht: 5 ft 9 in Wt: 161lbs BSA: 1.88 BP: 118/77 mmHg Indications: SOA M-Mode Dimensions RVDd 1.81 cm (0.9-2.6) LA Diam 4.16 cm (1.9-4.0) LVDd 5.56 cm (3.5-5.7) LVDs 3.99 cm (3.5-5.7) IVSd 0.76 cm (0.6-1.1) PWd 0.85 cm (0.6-1.1) EF (Teich) 54.00% FS 28.20% EDV (Teich) 151.20 mL TAPSE 1.98 (<1.7) ESV (Teich) 69.60 mL LV Diastology E Decel Time 280 (160-240 msec) E/A Ratio 1.2 Aortic Valve SHONDA Index 1.16 cm2/m2 AoV Peak Devin. 134.0 (50-130 cm/s) AO Peak GR. 7.20 mmHg AO Mean GR. 3.60 (<5 mmHg) AO VTI 33.9 (18-25 cm) SHONDA (VTI) 2.23 (2.5-4.5 cm2) Mitral Valve MV E Max Devin. 75.0 (40-130 cm/s) MV A Velocity 65.0 (40-130 cm/s) E/A Ratio 1.16 MV PHT 82.0 ms Left Ventricle The left ventricle is normal size. Left ventricular systolic function is normal. The left ventricular ejection fraction is within the normal range. There is normal left ventricular wall thickness. There is normal LV segmental wall motion. The left ventricular diastolic function is normal. LVEF is 55% Right Ventricle The right ventricle is mildly dilated. The right ventricular systolic function is normal. Atria The left atrium size is normal. The right atrium size is normal. There is no color Doppler evidence of interatrial shunt. Aortic Valve The aortic valve opens well. There is no hemodynamically significant aortic valvular stenosis. Mild aortic regurgitation is present. Mitral Valve The mitral valve is normal in structure. No evidence of mitral valve stenosis. Trace mitral regurgitation is present. Tricuspid Valve The tricuspid valve leaflets are thin and pliable. Mild tricuspid regurgitation. RVSP is 20-25 mmHg. Pulmonic Valve The pulmonary valve is grossly normal in structure. Trace pulmonic valve regurgitation is present. Great Vessels The aortic root is normal in size. IVC is normal in size and collapses >50% with inspiration. Pericardium There is no pericardial effusion. Other Information Study Quality: Fair Conclusion Normal biventricular systolic function. Mild RV dilation. Mild AI, mild TR. Electronically signed by : Donita Jade MD 11/16/2025 13:17:32
[2025-11-16] MEDS: ISOTOPE MYOVIEW (PER STUDY) 1 DOSE IV (10:07)
[2025-11-16] MEDS: SODIUM CHLORIDE 0.9% 10ML SYR (RAD ONLY) 10 ML IV ×3 (10:07→10:23)
[2025-11-16] MEDS: 0.9 % SODIUM CHLORIDE 50 ML VIAL 100 ML IV (10:22)
[2025-11-16] MEDS: IOPAMIDOL-370 (76%);100ML BOTTLE 120 ML IV (10:23)
== END 2025-11-16 23:59 | disposition home or self-care (01) ==
LOC: RAD 06:05
PROVIDERS: PCP Family Medicine; Visit Provider Physician Assistant
DX: I08.2 Rheumatic disorders of both aortic and tricuspid valves (principal); I11.9 Hypertensive heart disease without heart failure; I70.203 Unspecified atherosclerosis of native arteries of extremities, bilateral legs; K80.20 Calculus of gallbladder without cholecystitis without obstruction; I25.10 Atherosclerotic heart disease of native coronary artery without angina pectoris; E78.5 Hyperlipidemia, unspecified; R94.39 Abnormal result of other cardiovascular function study; R00.1 Bradycardia, unspecified; R94.31 Abnormal electrocardiogram [ECG] [EKG]; Z72.0 Tobacco use; Z95.828 Presence of other vascular implants and grafts; R20.2 Paresthesia of skin
CPT/HCPCS: 75635; 78452; 93017; 93018; 93306; A9502; J2785; Q9967

== ENCOUNTER 2025-11-17 09:50 | Day surgery (SDC) | payer OTHER, SELFPAY ==
[2025-11-17] VITALS (10 sets, daily range): BP systolic 140–164; BP diastolic 63–85; PULSE 41–58; RESP 18–20; O2SAT 91–99; BMI 24.3
--- NOTE | 2025-11-17 07:12 | IR_ITS ---
APPROVED REPORT Patient Location: Outpatient PROCEDURES Left heart catheterization Left ventriculogram Selective coronary angiogram Drug-eluting stent deployment to the proximal and mid LAD INDICATION Coronary artery disease, Angina pectoris, Abnormal Myoview Informed consent was obtained prior to the procedure. COMPLICATIONS NONE Estimated Blood Loss: LESS THAN 10 ML TECHNIQUE One percent lidocaine used to anesthetize the right anterior aspect of the wrist. The right radial artery was accessed via the Seldinger technique. A 6 Kis[place]ili sheath was placed in the right radial artery. 2.5 mg of Verapamil, 800 mcg of nitroglycerin, 1mg Lidocaine and 5000 U Heparin were given through the arterial sheath. The JL3 catheter was also used to perform left heart catheterization, left ventriculogram and selective coronary angiogram. At the end of the diagnostic angiogram therapeutic heparin was administered giving a therapeutic ACT and the guide catheter was placed in left main artery followed by Choice PT extra-support wire placed distally in the LAD. Primary stenting could not be performed therefore 3 mm x 12 mm noncompliant balloon was deployed at 20 christine to predilate the stenosis. This allowed a 3.5 x 18 mm [place] frontier stent to be deployed in the proximal to mid LAD at 18 christine. An additional 3 mm x 12 mm [place] frontier stent was placed distal to the for stent and still overlapping and deployed at 16 christine. The balloon was brought back a half the length and deployed at 20 christine to post dilate and match the 2 stents. JENNI-3 flow was present before and after the procedure. At the end the procedure the apparatus was removed the sheath was removed good hemostasis was achieved using TR banding patient was transferred to the postop porting in stable condition ANGIOGRAPHIC RESULTS The left main artery Normal The left anterior descending artery Has proximal calcified 30% stenosis followed by a concentric 90% stenosis immediately after a small to medium first diagonal artery and just prior to a large first septal laundry routeman. There is additional 40 to 50% mid LAD stenosis with an additional 50% mid LAD stenosis. Distally there is an 80% stenosis as the LAD wraps the apex The circumflex artery Is dominant has proximal 30% stenosis. Large first obtuse marginal artery has a proximal 60% eccentric stenosis. The terminal obtuse marginal arteries are small to medium in size and a proximal 40% calcified stenosis The right coronary artery Vestigial diffusely diseased but patent The ZUNIGA ventriculogram reveals Normal 60% The left ventricular end-diastolic pressure 10 mmHg IMPRESSION Severe proximal LAD disease as described above Successful stenting of the proximal and mid LAD severe disease reduced to 0% with 2 contiguous drug-eluting stents Severe disease in the distal LAD as the LAD wraps the apex which is too small for percutaneous intervention and not anatomically appropriate for revascularization Persistent moderate to severe disease in a large first obtuse marginal artery which is best managed medically for the time being. There is almost certainty of the angina came from the proximal LAD Normal ejection fraction Normal LVEDP PLAN 1. Dual antiplatelet therapy 2. Cardiac rehabilitation 3. Avoidance of tobacco products 4. Risk factor modification 5. LDL less than 55 to be achieved with high intensity statin 6. Maximize antianginal medication Electronically signed by : Santy Hunt MD 11/17/2025 12:31:54
[2025-11-17 10:04] LABS: Hematocrit 46.8 % (42.0-52.0); Hemoglobin 15.0 g/dL (14.1-18.0); Immature Granulocytes % 0.3 %; Mean Corpuscular HGB Conc 32.1 g/dL (31.8-35.4); Mean Corpuscular Hemoglobin 29.3 pg (27.0-31.2); Mean Corpuscular Volume 91.4 fl (80-94); Nucleated Red Blood Cells % 0 %; Platelet Count 237 K/mm3 (142-424); Red Blood Count 5.12 M/mm3 (4.60-6.20); Red Cell Distribution Width-SD 52.0 fL; White Blood Count 7.1 K/mm3 (4.8-10.8)
[2025-11-17 10:14] LABS: Chloride 104 mmol/L (98-107)
[2025-11-17 10:15] LABS: Potassium 4.7 mmoL/L (3.5-5.1); Sodium 141 mmol/L (136-145)
[2025-11-17 10:18] LABS: Anion Gap 12.7 mEq/L (5-15); Blood Urea Nitrogen 20 mg/dl (9-20); Calcium 10.2 mg/dl (8.4-10.2); Carbon Dioxide 29 mmol/L (22.0-30.0); Creatinine Clearance Estimated 76 mL/min (50-200); Creatinine,Serum 1.00 mg/dl (0.66-1.25); Estimated Glomerular Filt Rate 75 ml/min (>60); GFR (African American) 90 ML/MIN (>60); Glucose 186 mg/dl (74-100)
[2025-11-17] MEDS: HEPARIN 1,000 UNITS/ML 10ML VIAL (CATH LAB) 5000 UNIT IV (11:53)
[2025-11-17] MEDS: LIDOCAINE 1% 10ML MDV 10 ML IJ (11:53)
[2025-11-17] MEDS: HEPARIN 1,000 UNITS/500ML NS (CATH LAB) 3000 UNIT IV (11:53)
[2025-11-17] MEDS: VERAPAMIL 2.5MG/ML 2ML VIAL 2.5 MG IV (11:54)
[2025-11-17] MEDS: NITROGLYCERIN 800MCG/8ML SYR (CATH LAB) 800 MCG IA (11:55)
[2025-11-17] MEDS: 0.9 % SODIUM CHLORIDE 500 ML 25 ML IV (11:55)
[2025-11-17] MEDS: MIDAZOLAM HCL 1MG/ML 5ML VIAL 1 MG IV (12:01)
[2025-11-17] MEDS: FENTANYL 100MCG/2ML VIAL 50 MCG IV (12:01)
[2025-11-17 12:45] LABS: CATHL Activated Clotting Time > 400 SEC (74-125)
== END 2025-11-17 15:18 | disposition home or self-care (01) ==
LOC: CATHLAB 09:50
PROVIDERS: PCP Family Medicine; Visit Provider Internal Medicine
PROC: 4A023N7 Measurement of Cardiac Sampling and Pressure, Left Heart, Percutaneous Approach (ICD-10-PCS; CPT 93452; principal; 2025-11-17 11:35)
DX: I25.119 Atherosclerotic heart disease of native coronary artery with unspecified angina pectoris (principal); R94.31 Abnormal electrocardiogram [ECG] [EKG]; R93.1 Abnormal findings on diagnostic imaging of heart and coronary circulation; E11.9 Type 2 diabetes mellitus without complications; E78.2 Mixed hyperlipidemia; I11.9 Hypertensive heart disease without heart failure; R53.83 Other fatigue; R20.2 Paresthesia of skin; I73.9 Peripheral vascular disease, unspecified; F17.290 Nicotine dependence, other tobacco product, uncomplicated; Z79.84 Long term (current) use of oral hypoglycemic drugs; Z79.02 Long term (current) use of antithrombotics/antiplatelets; Z79.82 Long term (current) use of aspirin; Z79.4 Long term (current) use of insulin; Z79.899 Other long term (current) drug therapy; Z88.8 Allergy status to other drugs, medicaments and biological substances; Z95.5 Presence of coronary angioplasty implant and graft
CPT/HCPCS: 36415; 80048; 85025; 85347; 92928; 93458; 99152; C1725; C1769; C1874; C1887; C9600; J1200; J1644; J2003; J3010; J7040